=== PATIENT | female | born 1965 | race Caucasian/White ===

== ENCOUNTER 2017-03-10 09:57 | Inpatient (IN) | payer BC ==
[~2017-03-10] VITALS: Ht 165.1 cm; Wt 95.0 kg
[2017-03-10] VITALS (10 sets, daily range): BP systolic 87–123; BP diastolic 60–77; PULSE 88–114; TEMP 37.3–39; O2SAT 92–98; Ht 165.1 cm; Wt 95.0 kg
[~2017-03-10 09:57] MED LIST: ALBUAER19 INH; AMT50 PO; ASTN; ATOR-24 PO; CARB200T3 PO; DOXY50CA PO; FLUO20CA35 PO; LEVOIUD INT UTER; METO25TA3 PO; PRLSR20 PO
--- NOTE | 2017-03-10 10:28 | EMERGENCY ROOM VISIT NOTE ---
History Report prepared by Ivana: Kelsie Centeno Under the Supervision of: Dr. Jose Coley M.D. First contact with patient: 10:18 Chief Complaint: DIARRHEA Stated Complaint: SWOLLEN EYE, DIARRHEA, STOMACH PAIN Nursing Triage Summary: Pt reports nausea, diarrhea, swelling to right eye, itching to b/l eyes. Hx of gastritis, states feels similar. 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 Took 50 mg Benadryl at 0900. Abd pain and nausea, diarrhea began this morning. History of Present Illness The patient is a 51 year old female who presents to the Emergency Room with complaints of bilateral periorbital itching and swelling, right worse than left , over the past few days. The patient has environmental allergies including multiple types of pollen, dust mites, and mold. This morning, the patient's eyes were very itchy and she "vigorously rubbed" her eyes. At that time, she noticed significantly worsened swelling to her right eye. She has noticed some discharge from her eyes. She is able to see out of both eyes but reports some blurred vision from her right eye. She has seen an barrel rifler in the past, but it has been years since she followed up with the barrel rifler. She denies any trauma to her face other than rubbing her eyes. She has not blown her nose today. The patient also complains of nausea, diarrhea and mild abdominal pain that began this morning. She states that her current symptoms feel like a previous bout of gastritis. She has a history of a cholecystectomy. She still has her appendix. She does not smoke or drink alcohol. Denies fever, vomiting, black or bloody stool, or other complaints. Source of History: patient Onset: a few days ago Position: eye (bilateral) Quality: other (swollen) Timing: worsening Associated Symptoms: + abdominal pain, + diarrhea, + nausea, No fevers, No vomiting Review of Systems See HPI for pertinent positives & negatives. A total of 10 systems reviewed and were otherwise negative. Past Medical & Surgical Medical Problems: (1) Asthma (2) Depression (3) Diverticulosis Colon (W/O Ment Of Hemorrhage) (4) Dyslipidemia (5) History of sleep apnea (6) Insomnia (7) Migraine (8) PSVT (paroxysmal supraventricular tachycardia) (9) SVT (supraventricular tachycardia) Surgical Problems: (1) H/O colonoscopy (2) H/O esophagogastroduodenoscopy (3) S/p anal skin tag removal (4) S/P laparoscopic cholecystectomy Old medical records were reviewed. Nurse's notes were reviewed and I agree with. Family History Diabetes mellitus FHx: cancer Heart disease Social History Smoking Status: Never Smoker Marital Status: Housing Status: lives with family Occupation Status: employed Current/Historical Medications Scheduled Atorvastatin (Lipitor), 40 MG PO DAILY Gabapentin (Gabapentin), 100 MG PO BID Levonorgestrel (Iud) (Mirena), 1 INT UTER CONTINOUS Metoprolol Succinate (Toprol Xl), 25 MG PO DAILY Naltrexone Hcl (Naltrexone Hcl), 100 MG PO BID Venlafaxine Hcl (Effexor), 75 MG PO DAILY Scheduled PRN Albuterol Hfa (Ventolin Hfa), 2 PUFFS INH Q4H PRN for SOB/Wheezing Allergies Coded Allergies: Tetracycline (Verified Allergy, Mild, MINOCYCLINE-RASH, 03/10/17) Sulfa Drugs (Verified Allergy, Unknown, DOESN'T REMEMBER REACTION, 03/10/17 ) Physical Exam Vital Signs Date Time Temp Pulse Resp B/P Pulse Ox O2 Delivery O2 Flow Rate FiO2 03/10/17 13:54 99 03/10/17 13:33 98 20 116/51 97 Room Air 03/10/17 12:09 75 18 121/97 99 Room Air 03/10/17 10:07 36.8 82 18 130/91 98 Room Air Physical Exam General: Mildly ill-appearing but non-toxic middle aged female. Well developed well nourished in no acute distress, breathing comfortably on room air. Normal speech HEENT: Normal cephalic atraumatic. Pupils are equal round and reactive to light. Right eye has moderate chemosis. Extraocular movements are intact. Mild swelling underneath the eye, but no redness, warmth or crepitus. Oropharynx is pink with moist mucous membranes. No swelling of the mouth lips or tongue. Neck: Supple with a midline trachea. No meningeal signs or stiffness, no JVD or bruits. No Stridor. Chest: Clear to auscultation bilaterally. No wheezes or rhonchi. No increased work of breathing. Heart: regular rate and rhythm. Abdomen: Soft nontender, nondistended without rebound guarding or rigidity. Extremities: No cyanosis clubbing or edema. No calf tenderness or assymetry Spine/Back. Non tender to palpation. No CVA tenderness Skin: Good turgor without rashes. Neurologic exam: Cranial nerves two through 12 are intact. Motor and sensation are intact and symmetrical throughout. Medical Decision & Procedures ER Provider Diagnostic Interpretation: Radiology results as stated below per my review and radiologist interpretation: ABDOMEN AND PELVIS CT WITH IV CONTRAST CT DOSE: 876.68 mGycm HISTORY: Epigastric pain. TECHNIQUE: Multiaxial CT images of the abdomen and pelvis were performed following the use of intravenous contrast. COMPARISON STUDY: MRCP 03/02/2009. FINDINGS: Punctate calcified granulomas within the right lower lobe. No pneumoperitoneum. No pneumatosis. No fractures within the visualized osseous structures. Small hiatus hernia. A single prominent distal left thoracic periaortic lymph node on image 39 of 436. This measures 9 mm in short axis diameter. Prominent mesenteric lymph nodes which also measure subcentimeter in short axis diameter. Cholecystectomy. Hepatic steatosis. A 5 mm hypodense lesion within the left hepatic lobe. This is too small to characterize. The spleen, adrenal glands, and kidneys are unremarkable. No hydronephrosis. Normal caliber abdominal aorta. No pelvic free fluid. The bladder is unremarkable. An intrauterine device appears to be in good position. Mild peripancreatic inflammatory change. This is consistent with acute pancreatitis. The pancreas enhances normally. Fluid-filled colon. No evidence for bowel obstruction. Normal appendix. Question mild inflammatory change surrounding the terminal ileum. This is best seen on image 307. There is also suggestion of mild inflammatory change at the proximal ascending colon. IMPRESSION: 1. Mild peripancreatic inflammatory change. This is consistent with acute pancreatitis. Recommend correlation with pancreatic enzymes. 2. Question of mild inflammatory change surrounding the terminal ileum and ascending colon. This may represent a low-grade enterocolitis. There is an associated fluid-filled colon. 3. Cholecystectomy. 4. Hepatic steatosis. 5. A few prominent left thoracic periaortic and mesenteric lymph nodes. 6. The intrauterine device appears to be in good position. Electronically signed by: Abner Frost M.D. 03/10/2017 1:29 PM Dictated Date/Time: 03/10/2017 1:20 PM Laboratory Results 03/10/17 10:45 Red Blood Count 4.90, Mean Corpuscular Volume 93.1, Mean Corpuscular Hemoglobin 32.4, Mean Corpuscular Hemoglobin Concent 34.9, Mean Platelet Volume 9.3, Neutrophils (%) (Auto) 69.8, Lymphocytes (%) (Auto) 23.3, Monocytes (%) (Auto) 1.7, Eosinophils (%) (Auto) 4.4, Basophils (%) (Auto) 0.1, Neutrophils # (Auto) 6.26, Lymphocytes # (Auto) 2.09, Monocytes # (Auto) 0.15, Eosinophils # (Auto) 0.39, Basophils # (Auto) 0.01 03/10/17 10:45 03/10/17 12:10 Test 03/10/17 10:45 03/10/17 11:04 03/10/17 12:10 White Blood Count 8.96 K/uL (4.8-10.8) Red Blood Count 4.90 M/uL (4.2-5.4) Hemoglobin 15.9 g/dL (12.0-16.0) Hematocrit 45.6 % (37-47) Mean Corpuscular Volume 93.1 fL (80-100) Mean Corpuscular Hemoglobin 32.4 pg (25-34) Mean Corpuscular Hemoglobin Concent 34.9 g/dl (32-36) Platelet Count 296 K/uL (130-400) Mean Platelet Volume 9.3 fL (7.4-10.4) Neutrophils (%) (Auto) 69.8 % Lymphocytes (%) (Auto) 23.3 % Monocytes (%) (Auto) 1.7 % Eosinophils (%) (Auto) 4.4 % Basophils (%) (Auto) 0.1 % Neutrophils # (Auto) 6.26 K/uL (1.4-6.5) Lymphocytes # (Auto) 2.09 K/uL (1.2-3.4) Monocytes # (Auto) 0.15 K/uL (0.11-0.59) Eosinophils # (Auto) 0.39 K/uL (0-0.5) Basophils # (Auto) 0.01 K/uL (0-0.2) RDW Standard Deviation 43.5 fL (36.4-46.3) RDW Coefficient of Variation 12.7 % (11.5-14.5) Immature Granulocyte % (Auto) 0.7 % Immature Granulocyte # (Auto) 0.06 K/uL (0.00-0.02) Anion Gap 6.0 mmol/L (3-11) Est Creatinine Clear Calc Drug Dose 83.6 ml/min Estimated GFR () 87.0 Estimated GFR (Non- 75.1 BUN/Creatinine Ratio 15.9 (10-20) Calcium Level 8.7 mg/dl (8.5-10.1) Total Bilirubin 0.6 mg/dl (0.2-1) Alanine Aminotransferase (ALT/SGPT) 66 U/L (12-78) Alkaline Phosphatase 143 U/L (45-117) Total Protein 7.3 gm/dl (6.4-8.2) Albumin 3.7 gm/dl (3.4-5.0) Lipase 69433 U/L (73-393) Urine Color DK YELLOW Urine Appearance CLOUDY (CLEAR) Urine pH 5.5 (4.5-7.5) Urine Specific [place] 1.029 (1.000-1.030) Urine Protein NEG (NEG) Urine Glucose (UA) NEG (NEG) Urine Ketones TRACE (NEG) Urine Occult Blood NEG (NEG) Urine Nitrite NEG (NEG) Urine Bilirubin NEG (NEG) Urine Urobilinogen NEG (NEG) Urine Leukocyte Esterase TRACE (NEG) Urine WBC (Auto) 1-5 /hpf (0-5) Urine RBC (Auto) 5-10 /hpf (0-4) Urine Hyaline Casts (Auto) 1-5 /lpf (0-5) Urine Epithelial Cells (Auto) 20-30 /lpf (0-5) Urine Bacteria (Auto) NEG (NEG) Urine Crystals CALCIUM OXALATE (NONE Urine Test NEG (NEG) Prothrombin Time 10.7 SECONDS (9.0-12.0) Prothromb Time International Ratio 1.0 (0.9-1.1) Activated Partial Thromboplast Time 24.3 SECONDS (21.0-31.0) Partial Thromboplastin Ratio 0.9 Direct Bilirubin 0.4 mg/dl (0-0.2) Aspartate Amino Transf (AST/SGOT) 130 U/L (15-37) Laboratory studies as stated above per my review. Medications Administered Medications (Trade) Dose Ordered Sig/Raheem Route Start Time Stop Time Status Last Admin Dose Admin Sodium Chloride 1,000 ml @ 999 mls/hr Q1H1M STAT IV 03/10/17 10:29 03/10/17 11:29 DC 03/10/17 10:53 999 MLS/HR Sodium Chloride (Nss 1000ml) 1,000 ml @ 150 mls/hr Q6H40M ONCE IV 03/10/17 10:29 03/10/17 16:53 DC 03/10/17 10:29 150 MLS/HR Ondansetron HCl (Zofran Inj) 4 mg NOW STAT IV 03/10/17 10:29 03/10/17 10:30 DC 03/10/17 10:53 4 MG Proparacaine HCl (Alcaine 0.5% Oph Soln) 225 drops STK-MED ONCE .ROUTE 03/10/17 10:49 03/10/17 10:50 DC 03/10/17 10:53 225 DROPS Al Hydroxide/Mg Hydroxide (Maalox Susp) 30 ml NOW STAT PO 03/10/17 11:17 03/10/17 11:18 DC 03/10/17 11:17 30 ML Lidocaine HCl (Viscous Lidocaine 2% Soln) 10 ml NOW STAT MT 03/10/17 11:17 03/10/17 11:18 DC 03/10/17 11:17 10 ML Ondansetron HCl 4 mg 4 mg NOW STAT IV 03/10/17 12:09 03/10/17 12:10 DC 03/10/17 12:13 4 MG Multivitamins/ Thiamine HCl/ Folic Acid/Sodium Chloride (Mvi Infusion Inj/Vitamin B-1 Inj/Folvite Inj/ Nss 1000ml) 1,011.2 ml @ 200 mls/ hr Q5H4M ONCE IV 03/10/17 12:30 03/10/17 17:33 DC 03/10/17 13:28 200 MLS/HR Lorazepam (Ativan Inj) 1 mg NOW STAT IV 03/10/17 12:29 03/10/17 12:33 DC 03/10/17 12:46 1 MG Miscellaneous Information (Nursing Decision Medication Order) 1 ea UD N/A 03/10/17 13:45 03/10/17 14:48 DC 03/10/17 13:47 1 EA Lorazepam (Ativan Inj) 1 mg NOW STAT IV 03/10/17 14:15 03/10/17 14:16 DC 03/10/17 14:31 1 MG Procedure Slit Lamp Examination Indication: Right eye swelling The right eye was prepped with topical proparacaine. Slit lamp examination was performed in the standard fashion. Cornea appeared normal without abrasion. Anterior chamber normal. Scleral injection absent but significant chemosis present, no dendritic lesions. Clear tears present. Fluorescein examination performed and revealed no corneal abrasions. No foreign bodies noted. Negative Arcelia sign. The patient tolerated the procedure well without complication. ED Course 1020: The patient was evaluated in room B10, and a complete history and physical examination were performed. 1029: Ordered Zofran Inj 4 mg IV, NSS 1000 ml @ 150 mls/hr IV, NSS 1000 ml @ 999 mls/hr IV. 1105: I performed a slit lamp exam. See procedure note above. The patient requested something for the acidic feeling in her stomach. 1117: Ordered Lidocaine HCl 10 ml MT, Maalox Susp 30 ml PO. 1121: I discussed the case with Dr. Castellanos - Ophthalmology. He said that if her symptoms are allergic, she will get better. He said to try Naphcon A over the counter antihistamine drops or Pred Forte if she wants to treat it more aggressively. 1205: I reassessed the patient and updated her on results. She was vomiting. She admitted that she has a history of alcoholism and relapsed a few weeks ago. 1209: Ordered Zofran Inj 4 mg IV. 1229: Ordered Ativan Inj 1 mg IV, Multivitamins 10 ml/Thiamine HCl 100 mg/Folic Acid 1 mg/NSS 1011.2 ml @ 200 mls/hr IV. 1330: Upon reevaluation, the patient is feeling a little shaky. She will get another dose of Ativan. Her vitals are stable. I discussed the results and treatment plan with the patient. She verbalized agreement of the treatment plan. The patient will be evaluated for further management. 1344: I discussed the case with Germania España PA-C - [facility]. The patient will be evaluated for further management. 1415: Ordered Ativan Inj 1 mg IV. Medical Decision Differentials include chemosis, allergic reaction, infection, ocular trauma, gastritis, abdominal process, electrolyte or metabolic abnormality. This patient comes in as described above. She was placed in room B 10. She is here for treatment and evaluation of hematosis in her right eye. She has allergies and was rubbing it today. There is some swelling of the sclera. She has no proptosis there is no cellulitis. She also has epigastric abdominal pain and diarrhea. IV access established hydrated normal saline . she's given Zofran blood tests was obtained. Her visual acuity was 20/200 bilaterally and she is not wearing her contacts. A slit-lamp exam was obtained and shows no anterior chamber abnormalities. I did discuss the case with Dr. Castellanos, the group sales coordinator who she is seen he agrees that his allergic and she can use topical antihistamines. She started complaining of more epigastric pain. She was hydrated and given IV Zofran. She remained stable. Her lipase came back significantly elevated at about 24,000 and I talked her about this and she tells me that she does have a history of alcoholism and had been sober for several years until about 2 weeks ago when she started drinking. She tells me she does not typically get DTs or withdrawal type symptoms and she stops drinking. She was reluctant to reveal this earlier. In light of this change, I did give her an IV banana bag with vitamins. I also gave her 1 milligram IV Ativan as she was starting to get shaky. I did a CAT scan as well is consistent with pancreatitis but there is no stenosis pseudocyst. She seemed to still be shaky so was given an additional milligram of IV Ativan she is sleepy with this but wakes up and says she is feeling better. I do think she needs be admitted for treatment of her pancreatitis and alcohol withdrawal. She will be admitted. I have consulted the [facility] hospitalist group who saw her in the ER and will admit her for these measures. Consults Time Called: [phone] Consulting Physician: Dr. Castellanos - Ophthalmology Returned Call: [phone] I discussed the case with him. He said that if her symptoms are allergic, she will get better. He said to try Naphcon A over the counter antihistamine drops or Pred Forte if she wants to treat it more aggressively. Additional Consults: Time Called: [phone] Consulted Physician: Germania España PA-C - [facility] Returned Call: [phone] Additional Comments: I discussed the case with her. The patient will be evaluated for further management. Impression Primary Impression: Pancreatitis Additional Impressions: Chemosis Alcohol withdrawal Scribe Attestation The scribe's documentation has been prepared under my direction and personally reviewed by me in its entirety. I confirm that the note above accurately reflects all work, treatment, procedures, and medical decision making performed by me. Departure Information Dispostion Being Evaluated By Hospitalist Referrals No Doctor, Assigned (PCP) Patient Instructions My [facility] Problem Qualifiers
[2017-03-10] MEDS ORDERED: ONDANSETRON INJ 2 MG/ML 2 ML VIAL IV STA ×2 (10:29→12:09)
[2017-03-10] MEDS ORDERED: SODIUM CHLORIDE 0.9% 1000ML 1,000 ML IV ONE (10:29)
[2017-03-10] MEDS ORDERED: SODIUM CHLORIDE 0.9% 1000ML 1,000 ML IV STA (10:29)
[2017-03-10] MEDS ORDERED: VNTHFA/IN INH (10:32)
[2017-03-10] MEDS ORDERED: PROPARACAINE HCL 0.5% OP SOLN 15 ML BTL ONE (10:49)
[2017-03-10 11:06] LABS: BASO % 0.1 %; BASO ABS # 0.01 K/uL (0-0.2); COMPLETE YES; EOS % 4.4 %; HEMATOCRIT 45.6 % (37-47); IG% 0.7 %; LYMPH % 23.3 %; LYMPH ABS # 2.09 K/uL (1.2-3.4); MEAN CELL VOLUME 93.1 fL (80-100); MEAN CORPUSCULAR HEMOGLOBIN 32.4 pg (25-34); MEAN CORPUSCULAR HGB CONC 34.9 g/dl (32-36); MEAN PLATELET VOLUME 9.3 fL (7.4-10.4); MONO % 1.7 %; NEUT % 69.8 %; PLATELET COUNT 296 K/uL (130-400); WHITE BLOOD COUNT 8.96 K/uL (4.8-10.8)
[2017-03-10] MEDS ORDERED: ALUMINUM/MAGNESIUM SUSP 30 ML UDC PO STA (11:17)
[2017-03-10] MEDS ORDERED: LIDOCAINE HCL 2% VISC SOLN 20 ML UDC MT STA (11:17)
[2017-03-10 11:20] LABS: URINE APPEARANCE CLOUDY (CLEAR); URINE COLOR DK YELLOW; URINE EPITHELIAL CELL AUTO 20-30 /lpf (0-5); URINE NITRITE NEG (NEG); URINE PH 5.5 (4.5-7.5); URINE SPECIFIC GRAVITY 1.029 (1.000-1.030); UROBILINOGEN NEG (NEG)
[2017-03-10 11:25] LABS: MANUAL MICROSCOPIC REQUIRED? NO; REVIEW REQ? YES
[2017-03-10 11:26] LABS: URINE BILIRUBIN NEG (NEG)
[2017-03-10] MEDS ORDERED: LIDOCAINE HCL 2% VISC SOLN 20 ML UDC ONE (11:30)
[2017-03-10] MEDS ORDERED: ALUMINUM/MAGNESIUM SUSP 30 ML UDC ONE (11:30)
[2017-03-10 11:54] LABS: BLOOD UREA NITROGEN 14 mg/dl (7-18); BUN/CREATININE RATIO 15.9 (10-20); CALCIUM 8.7 mg/dl (8.5-10.1); CARBON DIOXIDE 27 mmol/L (21-32); CHLORIDE 105 mmol/L (98-107); GLUCOSE 127 mg/dl (70-99); SODIUM 138 mmol/L (136-145)
[2017-03-10 12:03] LABS: ALKALINE PHOSPHATASE 143 U/L (45-117); ALT/SGPT 66 U/L (12-78)
[2017-03-10] MEDS ORDERED: LORAZEPAM 2 MG/ML 1 ML VIAL IV STA ×2 (12:29→14:15)
[2017-03-10] MEDS ORDERED: MULTI-VITAMIN INFUSION INJ 10 ML, THIAMINE HCL INJ 100 MG, FoLIC ACID INJ 1 MG in SODIU... IV ONE (12:30)
[2017-03-10] MEDS ORDERED: OPTIRAY 320 IV PRN (12:45)
[2017-03-10 12:51] LABS: POTASSIUM 4.1 mmol/L (3.5-5.1)
--- NOTE | 2017-03-10 13:31 | DIAGNOSTIC IMAGING REPORT ---
ABDOMEN AND PELVIS CT WITH IV CONTRAST CT DOSE: 876.68 mGycm HISTORY: Epigastric pain. TECHNIQUE: Multiaxial CT images of the abdomen and pelvis were performed following the use of intravenous contrast. COMPARISON STUDY: MRCP 03/02/2009. FINDINGS: Punctate calcified granulomas within the right lower lobe. No pneumoperitoneum. No pneumatosis. No fractures within the visualized osseous structures. Small hiatus hernia. A single prominent distal left thoracic periaortic lymph node on image 39 of 436. This measures 9 mm in short axis diameter. Prominent mesenteric lymph nodes which also measure subcentimeter in short axis diameter. Cholecystectomy. Hepatic steatosis. A 5 mm hypodense lesion within the left hepatic lobe. This is too small to characterize. The spleen, adrenal glands, and kidneys are unremarkable. No hydronephrosis. Normal caliber abdominal aorta. No pelvic free fluid. The bladder is unremarkable. An intrauterine device appears to be in good position. Mild peripancreatic inflammatory change. This is consistent with acute pancreatitis. The pancreas enhances normally. Fluid-filled colon. No evidence for bowel obstruction. Normal appendix. Question mild inflammatory change surrounding the terminal ileum. This is best seen on image 307. There is also suggestion of mild inflammatory change at the proximal ascending colon. IMPRESSION: 1. Mild peripancreatic inflammatory change. This is consistent with acute pancreatitis. Recommend correlation with pancreatic enzymes. 2. Question of mild inflammatory change surrounding the terminal ileum and ascending colon. This may represent a low-grade enterocolitis. There is an associated fluid-filled colon. 3. Cholecystectomy. 4. Hepatic steatosis. 5. A few prominent left thoracic periaortic and mesenteric lymph nodes. 6. The intrauterine device appears to be in good position. Electronically signed by: Abner Frost M.D. 03/10/2017 1:29 PM Dictated Date/Time: 03/10/2017 1:20 PM
[2017-03-10] MEDS ORDERED: NURSING DECISION MEDICATION ORDER SCH (13:45)
[2017-03-10] MEDS ORDERED: LORAZEPAM 2 MG/ML 1 ML VIAL IV SCH (14:42)
[2017-03-10] MEDS ORDERED: ACETAMINOPHEN 325 MG TAB PO PRN (14:45)
[2017-03-10] MEDS ORDERED: ONDANSETRON INJ 2 MG/ML 2 ML VIAL IV PRN (14:45)
[2017-03-10] MEDS ORDERED: NRN100 PO (14:46)
[2017-03-10] MEDS ORDERED: EFF75 PO (14:46)
[2017-03-10] MEDS ORDERED: NALT50TA5 PO (14:46)
[2017-03-10 15:00] LABS: PARTIAL THROMBOPLASTIN RATIO 0.9; PROTHROMBIN TIME (PATIENT) 10.7 SECONDS (9.0-12.0)
[2017-03-10] MEDS ORDERED: ALBUTEROL HFA 8 GM INHALER INH PRN (15:00)
[2017-03-10] MEDS ORDERED: NAPHAZOLIN/PHENIRAMIN OPH SOLN 75 DROPS/5 ML BTL OPR PRN ×2 (15:00→18:00)
[2017-03-10] MEDS ORDERED: GABAPENTIN 600 MG TAB PO SCH (15:00)
[2017-03-10] MEDS ORDERED: THIAMINE HCL 100 MG TAB PO STA (15:03)
[2017-03-10] MEDS ORDERED: LORAZEPAM 1 MG TAB PO PRN (15:15)
--- NOTE | 2017-03-10 15:36 | Progress Note ---
Medicine Progress Note Date & Time of Visit: Mar 10, 2017 at 15:08. Subjective ATTENDING ADDENDUM: Objective Last 8 Hrs Date Time Temp Pulse Resp B/P Pulse Ox O2 Delivery O2 Flow Rate FiO2 03/10/17 13:54 99 03/10/17 13:33 98 20 116/51 97 Room Air 03/10/17 12:09 75 18 121/97 99 Room Air 03/10/17 10:07 36.8 82 18 130/91 98 Room Air Physical Exam: GEN: WNWD, in mild distress, alert and appropriate HEENT: NC/AT, PERRL, R scleral injection without iris involvement CARDIO: reg rate, S1/2 heard without m/g/r LUNGS: CTA bilaterally, no crackles, rales or wheezes, good diaphragmatic excursion ABD: very hypoactive bowel sounds, TTP in epigastric area, slightly distended but still soft, some voluntary guarding present, no rebound, no CVA tenderness EXTREMITY: no LE swelling or edema, extremities are warm and well-perfused NEURO: CN 2-12 grossly intact, limited exam as patient guarding against pain, she is alert but very tremulous, no pressured speech, no hallucinations or confabulations were noted. MUSC: moves all extremities equally, , can move herself up in the bed, no focal deficits SKIN: warm and diaphoretic, no obvious skin lesions were noted on back, trunk or extremities, face appears flushed Laboratory Results: 03/10/17 10:45 Red Blood Count 4.90, Mean Corpuscular Volume 93.1, Mean Corpuscular Hemoglobin 32.4, Mean Corpuscular Hemoglobin Concent 34.9, Mean Platelet Volume 9.3, Neutrophils (%) (Auto) 69.8, Lymphocytes (%) (Auto) 23.3, Monocytes (%) (Auto) 1.7, Eosinophils (%) (Auto) 4.4, Basophils (%) (Auto) 0.1, Neutrophils # (Auto) 6.26, Lymphocytes # (Auto) 2.09, Monocytes # (Auto) 0.15, Eosinophils # (Auto) 0.39, Basophils # (Auto) 0.01 03/10/17 10:45 03/10/17 12:10 Test 03/10/17 10:45 03/10/17 11:04 03/10/17 12:10 03/10/17 14:50 White Blood Count 8.96 K/uL (4.8-10.8) Red Blood Count 4.90 M/uL (4.2-5.4) Hemoglobin 15.9 g/dL (12.0-16.0) Hematocrit 45.6 % (37-47) Mean Corpuscular Volume 93.1 fL (80-100) Mean Corpuscular Hemoglobin 32.4 pg (25-34) Mean Corpuscular Hemoglobin Concent 34.9 g/dl (32-36) Platelet Count 296 K/uL (130-400) Mean Platelet Volume 9.3 fL (7.4-10.4) Neutrophils (%) (Auto) 69.8 % Lymphocytes (%) (Auto) 23.3 % Monocytes (%) (Auto) 1.7 % Eosinophils (%) (Auto) 4.4 % Basophils (%) (Auto) 0.1 % Neutrophils # (Auto) 6.26 K/uL (1.4-6.5) Lymphocytes # (Auto) 2.09 K/uL (1.2-3.4) Monocytes # (Auto) 0.15 K/uL (0.11-0.59) Eosinophils # (Auto) 0.39 K/uL (0-0.5) Basophils # (Auto) 0.01 K/uL (0-0.2) RDW Standard Deviation 43.5 fL (36.4-46.3) RDW Coefficient of Variation 12.7 % (11.5-14.5) Immature Granulocyte % (Auto) 0.7 % Immature Granulocyte # (Auto) 0.06 K/uL (0.00-0.02) Anion Gap 6.0 mmol/L (3-11) Est Creatinine Clear Calc Drug Dose 83.6 ml/min Estimated GFR () 87.0 Estimated GFR (Non- 75.1 BUN/Creatinine Ratio 15.9 (10-20) Calcium Level 8.7 mg/dl (8.5-10.1) Total Bilirubin 0.6 mg/dl (0.2-1) Alanine Aminotransferase (ALT/SGPT) 66 U/L (12-78) Alkaline Phosphatase 143 U/L (45-117) Total Protein 7.3 gm/dl (6.4-8.2) Albumin 3.7 gm/dl (3.4-5.0) Lipase 03156 U/L (73-393) Urine Color DK YELLOW Urine Appearance CLOUDY (CLEAR) Urine pH 5.5 (4.5-7.5) Urine Specific [place] 1.029 (1.000-1.030) Urine Protein NEG (NEG) Urine Glucose (UA) NEG (NEG) Urine Ketones TRACE (NEG) Urine Occult Blood NEG (NEG) Urine Nitrite NEG (NEG) Urine Bilirubin NEG (NEG) Urine Urobilinogen NEG (NEG) Urine Leukocyte Esterase TRACE (NEG) Urine WBC (Auto) 1-5 /hpf (0-5) Urine RBC (Auto) 5-10 /hpf (0-4) Urine Hyaline Casts (Auto) 1-5 /lpf (0-5) Urine Epithelial Cells (Auto) 20-30 /lpf (0-5) Urine Bacteria (Auto) NEG (NEG) Urine Crystals CALCIUM OXALATE (NONE Urine Test NEG (NEG) Prothrombin Time 10.7 SECONDS (9.0-12.0) Prothromb Time International Ratio 1.0 (0.9-1.1) Activated Partial Thromboplast Time 24.3 SECONDS (21.0-31.0) Partial Thromboplastin Ratio 0.9 Direct Bilirubin 0.4 mg/dl (0-0.2) Aspartate Amino Transf (AST/SGOT) 130 U/L (15-37) Date/Time Source Procedure Growth Status 03/10/17 11:04 Urine , Clean Catch Urine Culture Pending Received Last 24 Hours Test 03/10/17 10:45 03/10/17 11:04 03/10/17 12:10 03/10/17 14:50 White Blood Count 8.96 K/uL Red Blood Count 4.90 M/uL Hemoglobin 15.9 g/dL Hematocrit 45.6 % Mean Corpuscular Volume 93.1 fL Mean Corpuscular Hemoglobin 32.4 pg Mean Corpuscular Hemoglobin Concent 34.9 g/dl Platelet Count 296 K/uL Mean Platelet Volume 9.3 fL Neutrophils (%) (Auto) 69.8 % Lymphocytes (%) (Auto) 23.3 % Monocytes (%) (Auto) 1.7 % Eosinophils (%) (Auto) 4.4 % Basophils (%) (Auto) 0.1 % Neutrophils # (Auto) 6.26 K/uL Lymphocytes # (Auto) 2.09 K/uL Monocytes # (Auto) 0.15 K/uL Eosinophils # (Auto) 0.39 K/uL Basophils # (Auto) 0.01 K/uL RDW Standard Deviation 43.5 fL RDW Coefficient of Variation 12.7 % Immature Granulocyte % (Auto) 0.7 % Immature Granulocyte # (Auto) 0.06 K/uL Sodium Level 138 mmol/L Potassium Level mmol/L 4.1 mmol/L Chloride Level 105 mmol/L Carbon Dioxide Level 27 mmol/L Anion Gap 6.0 mmol/L Blood Urea Nitrogen 14 mg/dl Creatinine 0.90 mg/dl Est Creatinine Clear Calc Drug Dose 83.6 ml/min Estimated GFR () 87.0 Estimated GFR (Non- 75.1 BUN/Creatinine Ratio 15.9 Random Glucose 127 mg/dl Calcium Level 8.7 mg/dl Total Bilirubin 0.6 mg/dl Direct Bilirubin mg/dl 0.4 mg/dl Aspartate Amino Transf (AST/SGOT) U/L 130 U/L Alanine Aminotransferase (ALT/SGPT) 66 U/L Alkaline Phosphatase 143 U/L Total Protein 7.3 gm/dl Albumin 3.7 gm/dl Lipase 34477 U/L Urine Color DK YELLOW Urine Appearance CLOUDY Urine pH 5.5 Urine Specific [place] 1.029 Urine Protein NEG Urine Glucose (UA) NEG Urine Ketones TRACE Urine Occult Blood NEG Urine Nitrite NEG Urine Bilirubin NEG Urine Urobilinogen NEG Urine Leukocyte Esterase TRACE Urine WBC (Auto) 1-5 /hpf Urine RBC (Auto) 5-10 /hpf Urine Hyaline Casts (Auto) 1-5 /lpf Urine Epithelial Cells (Auto) 20-30 /lpf Urine Bacteria (Auto) NEG Urine Crystals CALCIUM OXALATE Urine Test NEG Prothrombin Time 10.7 SECONDS Prothromb Time International Ratio 1.0 Activated Partial Thromboplast Time 24.3 SECONDS Partial Thromboplastin Ratio 0.9 Date/Time Source Procedure Growth Status 03/10/17 11:04 Urine , Clean Catch Urine Culture Pending Received Diagnostic Imaging: ABD/PEL CT WITH IV CONTRAST: 1. Mild peripancreatic inflammatory change. This is consistent with acute pancreatitis. Recommend correlation with pancreatic enzymes. 2. Question of mild inflammatory change surrounding the terminal ileum and ascending colon. This may represent a low-grade enterocolitis. There is an associated fluid-filled colon. 3. Cholecystectomy. 4. Hepatic steatosis. 5. A few prominent left thoracic periaortic and mesenteric lymph nodes. 6. The intrauterine device appears to be in good position. Assessment & Plan 51 yo F with alcohol-induced pancreatitis 1. Abdominal pain likely 2/2 acute pancreatitis 2/2 alcohol use. Other etiologies include but are not limited to hepatitis (no fever or RUQ pain) and enterocolitis (diarrhea began two days ago, travel to [place] 3 weeks ago). Pt began drinking two weeks ago, shortly after being taken off Lexapro and Amitryptiline (per sleep study results). She readily admits to this and is very aware of her situation right now and admits to drinking 1-2 bottles of wine daily with some suicidal ideations as recently as this morning, which have gone away now that she is feeling better and her pain has gone down some. She has a h/o alcoholism and was previously sober for around 2 years. She is able to tolerate sips of liquid so agree with allowing clear liquids and only necessary PO meds. Ativan 5mg IV was given over the course of a couple of hours in the ER. Cont this liberally--protocol also ordered for this and gabapentin PO. Thiamine daily. Diarrhea is likely 2/2 pancreatic insufficiency but agree with checking stool studies. Decreased bowel sounds and slight distension likely 2/2 adynamic ileus. Will monitor with serial abdominal exams. GI consult 2. Alcohol withdrawal-significant but controlling with PRN Ativan pushes for now. Last drink was 12-24 hours ago, so liberal use encouraged to nursing staff. Gabapentin also per protocol 3. Elevated transaminases-2/2 acute pancreatitis. Trend in am. 4. Depression-unstable off meds. Not currently suicidal but aware of options if these thoughts return. Nursing staff made aware for 15 minute checks on her up front. 5. Allergic conjunctivitis-appreciate Ophthalmology evaluation in the ER; likely allergic conjunctivitis with symptoms ongoing for two weeks. Naphcon A drops recommended up front. I have seen and evaluated the patient with Leeann España PA-C and agree with the H& P as stated. Deedee De DO [facility] Hospitalist Current Inpatient Medications: Current Inpatient Medications Medications (Trade) Dose Ordered Sig/Raheem Route Start Time Stop Time Status Last Admin Dose Admin Sodium Chloride 1,000 ml @ 150 mls/hr Q6H40M ONCE IV 03/10/17 10:29 03/10/17 17:08 03/10/17 10:29 150 MLS/HR Multivitamins/ Thiamine HCl/ Folic Acid/Sodium Chloride (Mvi Infusion Inj/Vitamin B-1 Inj/Folvite Inj/ Nss 1000ml) 1,011.2 ml @ 200 mls/ hr Q5H4M ONCE IV 03/10/17 12:30 03/10/17 17:33 03/10/17 13:28 200 MLS/HR Ioversol (Optiray 320) 100 ml UD PRN IV 03/10/17 12:45 03/14/17 12:44 Enoxaparin Sodium (Lovenox Inj) 40 mg Q24H SC 03/10/17 14:45 04/09/17 14:44 UNV Acetaminophen (Tylenol Tab) 650 mg Q4H PRN PO 03/10/17 14:45 04/09/17 14:44 Ondansetron HCl 4 mg 4 mg Q6H PRN IV 03/10/17 14:45 04/09/17 14:44 Sodium Chloride (Nss 1000ml) 1,000 ml @ 200 mls/hr Q5H IV 03/10/17 14:45 04/09/17 14:44 Lorazepam (Ativan Inj) 2 mg TODAY@1442 IV 03/10/17 14:42 03/10/17 16:00 Thiamine HCl (Vitamin B-1 Tab) 100 mg Q24H STAT PO 03/10/17 14:50 03/10/17 14:51 UNV Gabapentin (Neurontin Tab) 1,200 mg SEE PROTOCOL TEXT PO 03/10/17 15:00 04/09/17 14:59 UNV Naphazoline HCl/ Pheniramine Maleate (Visine-A Oph Soln) 1 drops Q6 PRN OPR 03/10/17 18:00 04/09/17 17:59 Albuterol (Ventolin Hfa Inhaler) 2 puffs Q4H PRN INH 03/10/17 15:00 04/09/17 14:59 Metoprolol Succinate (Toprol Xl Tab) 25 mg DAILY PO 03/11/17 09:00 04/10/17 08:59 UNV Venlafaxine HCl (effeXOR EXTENDED REL CAP) 75 mg DAILY PO 03/11/17 09:00 04/10/17 08:59
[2017-03-10] MEDS ORDERED: THIAMINE HCL 100 MG TAB PO SCH (16:00)
--- NOTE | 2017-03-10 16:06 | History and Physical ---
History & Physical Date & Time of Service: Mar 10, 2017 at 15:02 Chief Complaint: Swollen Eye, Diarrhea, Stomach Pain Primary Care Physician: Brent Alan M.D.(ITALO) History of Present Illness Source: patient, clinic records, hospital records This is a 51 year old female with hx of acute pancreatitis, alcohol abuse, depression, hx PSVT, and other problems listed below who presents to the ED for right eye symptoms and abdominal pain with diarrhea. Pt reports diarrhea x 2 days which worsened today with loose to liquid BM greater than once an hour. She awoke at 9 am with abdominal pain which she describes as diffuse originally rated 4-5/10 now rated 1/10. She had nausea earlier today which resolved with Zofran. Has occasional reflux. Pt states she went through rehab approx 2 years ago for alcohol abuse then relapsed 2 weeks ago. Has been drinking 1 bottle of wine per day. Last drink around midnight last night. She denies hx of DT's or alcohol withdrawal seizure. She is feeling anxious, shaky, and chills today. She reports being taken off Lexapro and Elavil approx 12 weeks ago and since that time has worsened depression, anxiety, insomnia. She states meds were stopped due to poor REM sleep on sleep study (f/u for prior sleep apnea- resolved per patient) . She reports recent suicidal ideation including this morning but denies suicidal ideation at this time. She does see psychiatry "Lea" [employer], unsure of the full name. Pt reports R >L eye itching, swelling. States eyes are chronically itchy due to pollen allergy but it worsened today. Has mild blurry vision R eye. She had a difficult time taking her contacts out this morning. Has been rubbing the eye. Denies known foreign body in the eye. Pt denies fever, diaphoresis, SOB, chest pain, dizziness, palpitations, vomiting , hematochezia, melena, dysuria, frequency, paresthesias. Recently travelled to [facility] from February 15-. No sick contacts or recent antibiotics. Pt had cholecystectomy in 2003. Was hospitalized for pancreatitis at [facility] in 2008. She was seen by [facility] and had unremarkable MRCP at that time. Past Medical/Surgical History Medical Problems: (1) Asthma Status: Chronic (2) Depression Status: Chronic (3) Dyslipidemia Status: Chronic (4) History of sleep apnea Permanent Comment: resolved per patient Status: Chronic (5) Insomnia Status: Chronic (6) Migraine Status: Chronic (7) PSVT (paroxysmal supraventricular tachycardia) Status: Chronic (8) SVT (supraventricular tachycardia) Status: Chronic Surgical Problems: (1) H/O colonoscopy Permanent Comment: 04/2016 perianal skin tag, normal colon Status: Chronic (2) H/O esophagogastroduodenoscopy Permanent Comment: 07/04/2009- EUS exam- No choledocholithiasis, No masses appreciated in the entire pancreas. EGD exam- Normal examined duodenum. Bilious gastric fluid. Mild gastritis ? bilious etiology. Bx neg for H. pylori. Prominent fold just distal to GEJ. Bx- Squamocolumnar mucosa with mild carditis and hyperplastic changes. Negative for intestinal metaplasia and dysplasia. Medium sized hiatus hernia. 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) Immunizations History of Influenza Vaccine: N/A History of Tetanus Vaccine?: Yes History of Pneumococcal: No History of Hepatitis B Vaccine: Yes Multi-Drug Resistant Organisms History of MDRO: No Allergies Coded Allergies: Tetracycline (Verified Allergy, Mild, MINOCYCLINE-RASH, 03/10/17) Sulfa Antibiotics (Verified Allergy, Unknown, PT DOESN'T REMEMBER REACTION , 03/11/17) Home Medications Scheduled Atorvastatin (Lipitor), 40 MG PO DAILY Gabapentin (Gabapentin), 100 MG PO BID Levonorgestrel (Iud) (Mirena), 1 INT UTER CONTINOUS Metoprolol Succinate (Toprol Xl), 25 MG PO DAILY Naltrexone Hcl (Naltrexone Hcl), 100 MG PO BID Venlafaxine Hcl (Effexor), 75 MG PO DAILY Scheduled PRN Albuterol Hfa (Ventolin Hfa), 2 PUFFS INH Q4H PRN for SOB/Wheezing Review of Systems Ten point ROS performed with pertinent positives and negatives noted in HPI. Physical Exam Vital Signs Date Time Temp Pulse Resp B/P Pulse Ox O2 Delivery O2 Flow Rate FiO2 03/10/17 13:54 99 03/10/17 13:33 98 20 116/51 97 Room Air 03/10/17 12:09 75 18 121/97 99 Room Air 03/10/17 10:07 36.8 82 18 130/91 98 Room Air General Appearance: WD/WN, + pertinent finding (alert 51 year old female, mild distress, mildly anxious, tremulous) Head: normocephalic, atraumatic Eyes: PERRL, + pertinent finding (right scleral injection and mild swelling of right upper and lower eyelid. no periorbital erythema or tenderness. ) ENT: hearing grossly normal, pharynx normal Neck: supple, trachea midline Respiratory/Chest: lungs clear, normal breath sounds, no respiratory distress, no accessory muscle use Cardiovascular: no murmur, + tachycardia (rate 90s, regular) Abdomen/GI: non tender, soft, + abnormal bowel sounds (sluggish bowel sounds) Extremities/Musculoskelatal: normal inspection, no calf tenderness, normal capillary refill, no pedal edema Neurologic/Psych: alert, oriented x 3, + pertinent finding (mildly anxious, + tremor of the upper extremities) Skin: normal color, warm/dry On my reassessment 1 hour later, patient sleeping but easily arousable, no longer tremulous. Diagnostics Laboratory Results Results Past 24 Hours Test 03/10/17 10:45 03/10/17 11:04 03/10/17 12:10 03/10/17 14:50 Range/Units White Blood Count 8.96 4.8-10.8 K/uL Red Blood Count 4.90 4.2-5.4 M/uL Hemoglobin 15.9 12.0-16.0 g/dL Hematocrit 45.6 37-47 % Mean Corpuscular Volume 93.1 80-100 fL Mean Corpuscular Hemoglobin 32.4 25-34 pg Mean Corpuscular Hemoglobin Concent 34.9 32-36 g/dl Platelet Count 296 130-400 K/uL Mean Platelet Volume 9.3 7.4-10.4 fL Neutrophils (%) (Auto) 69.8 % Lymphocytes (%) (Auto) 23.3 % Monocytes (%) (Auto) 1.7 % Eosinophils (%) (Auto) 4.4 % Basophils (%) (Auto) 0.1 % Neutrophils # (Auto) 6.26 1.4-6.5 K/uL Lymphocytes # (Auto) 2.09 1.2-3.4 K/uL Monocytes # (Auto) 0.15 0.11-0.59 K/uL Eosinophils # (Auto) 0.39 0-0.5 K/uL Basophils # (Auto) 0.01 0-0.2 K/uL RDW Standard Deviation 43.5 36.4-46.3 fL RDW Coefficient of Variation 12.7 11.5-14.5 % Immature Granulocyte % (Auto) 0.7 % Immature Granulocyte # (Auto) 0.06 0.00-0.02 K/uL Sodium Level 138 136-145 mmol/L Potassium Level 4.1 3.5-5.1 mmol/L Chloride Level 105 98-107 mmol/L Carbon Dioxide Level 27 21-32 mmol/L Anion Gap 6.0 3-11 mmol/L Blood Urea Nitrogen 14 7-18 mg/dl Creatinine 0.90 0.60-1.20 mg/dl Est Creatinine Clear Calc Drug Dose 83.6 ml/min Estimated GFR () 87.0 Estimated GFR (Non- 75.1 BUN/Creatinine Ratio 15.9 10-20 Random Glucose 127 70-99 mg/dl Calcium Level 8.7 8.5-10.1 mg/dl Total Bilirubin 0.6 0.2-1 mg/dl Direct Bilirubin 0.4 0-0.2 mg/dl Aspartate Amino Transf (AST/SGOT) 130 15-37 U/L Alanine Aminotransferase (ALT/SGPT) 66 12-78 U/L Alkaline Phosphatase 143 45-117 U/L Total Protein 7.3 6.4-8.2 gm/dl Albumin 3.7 3.4-5.0 gm/dl Lipase 47606 73-393 U/L Urine Color DK YELLOW Urine Appearance CLOUDY CLEAR Urine pH 5.5 4.5-7.5 Urine Specific [place] 1.029 1.000-1.030 Urine Protein NEG NEG Urine Glucose (UA) NEG NEG Urine Ketones TRACE NEG Urine Occult Blood NEG NEG Urine Nitrite NEG NEG Urine Bilirubin NEG NEG Urine Urobilinogen NEG NEG Urine Leukocyte Esterase TRACE NEG Urine WBC (Auto) 1-5 0-5 /hpf Urine RBC (Auto) 5-10 0-4 /hpf Urine Hyaline Casts (Auto) 1-5 0-5 /lpf Urine Epithelial Cells (Auto) 20-30 0-5 /lpf Urine Bacteria (Auto) NEG NEG Urine Crystals CALCIUM OXALATE NONE PRSENT Urine Test NEG NEG Prothrombin Time 10.7 9.0-12.0 SECONDS Prothromb Time International Ratio 1.0 0.9-1.1 Activated Partial Thromboplast Time 24.3 21.0-31.0 SECONDS Partial Thromboplastin Ratio 0.9 Microbiology Results 03/10/17 Urine Culture, Received Pending Diagnostic Radiology ABDOMEN AND PELVIS CT WITH IV CONTRAST CT DOSE: 876.68 mGycm HISTORY: Epigastric pain. TECHNIQUE: Multiaxial CT images of the abdomen and pelvis were performed following the use of intravenous contrast. COMPARISON STUDY: MRCP 03/02/2009. FINDINGS: Punctate calcified granulomas within the right lower lobe. No pneumoperitoneum. No pneumatosis. No fractures within the visualized osseous structures. Small hiatus hernia. A single prominent distal left thoracic periaortic lymph node on image 39 of 436. This measures 9 mm in short axis diameter. Prominent mesenteric lymph nodes which also measure subcentimeter in short axis diameter. Cholecystectomy. Hepatic steatosis. A 5 mm hypodense lesion within the left hepatic lobe. This is too small to characterize. The spleen, adrenal glands, and kidneys are unremarkable. No hydronephrosis. Normal caliber abdominal aorta. No pelvic free fluid. The bladder is unremarkable. An intrauterine device appears to be in good position. Mild peripancreatic inflammatory change. This is consistent with acute pancreatitis. The pancreas enhances normally. Fluid-filled colon. No evidence for bowel obstruction. Normal appendix. Question mild inflammatory change surrounding the terminal ileum. This is best seen on image 307. There is also suggestion of mild inflammatory change at the proximal ascending colon. IMPRESSION: 1. Mild peripancreatic inflammatory change. This is consistent with acute pancreatitis. Recommend correlation with pancreatic enzymes. 2. Question of mild inflammatory change surrounding the terminal ileum and ascending colon. This may represent a low-grade enterocolitis. There is an associated fluid-filled colon. 3. Cholecystectomy. 4. Hepatic steatosis. 5. A few prominent left thoracic periaortic and mesenteric lymph nodes. 6. The intrauterine device appears to be in good position. Impression Assessment and Plan ABDOMINAL PAIN Most likely secondary to acute pancreatitis from alcohol abuse; ?infectious enterocolitis given diarrhea, recent international travel; hepatitis considered unlikely- no fever, no RUQ pain Hx prior pancreatitis in 2008; was post cholecystectomy at that time; had unremarkable MRCP CT a/p- mild peripancreatic inflammatory change c/w acute pancreatitis. ? mild inflammatory change surrounding the terminal ileum and ascending colon. This may represent a low-grade enterocolitis. There is an associated fluid-filled colon; cholecystectomy; hepatic steatosis; a few prominent left thoracic periaortic and mesenteric lymph nodes; IUD in good position Lipase >24K, total bili WNL, direct bili 0.4, AST 130, ALT wnl, alk phos 143; noted to have abnormal LFT's in 2013- normalized in 07/2015 Transaminitis likely secondary to acute pancreatitis- recheck LFT's and lipase in am Check stool studies Check lipid panel in am to r/o hypertriglyceridemia induced pancreatitis Clear liquid diet NSS at 200 mL/hour PRN Zofran Consult GI ALCOHOL WITHDRAWAL Hx etoh abuse, was sober approx 2 years then relapsed 2 wks ago; drinking 1 bottle wine daily; last drink 03/09 night Improving with PRN IV Ativan Ativan and gabapentin per withdrawal protocol Received banana bag in ER Check urine drug screen, thiamine and folic acid Thiamine daily Hold naltrexone for now DEPRESSION Recently taken off Lexapro and Elavil approx 12 weeks ago due to sleep study results Recent suicidal ideation; denies suicidal ideation currently Continue Effexor Consult mental health ALLERGIC CONJUNCTIVITIS Ophthalmology contacted by ER physician Ordered Naphcon drops which were recommended by ophthalmology HISTORY OF PSVT Check EKG Continue metoprolol succinate ASTHMA Not in acute exacerbation Continue PRN albuterol inhaler DYSLIPIDEMIA Hold statin for now DVT PROPHYLAXIS Lovenox SQ DISPOSITION Admit to telemetry Follows w/ Dr. Alan for primary care Patient seen in collaboration with Dr. De. Please see her addendum. I have seen and examined the patient and agree with the note above. Please see addendum note for more details. Santino, DO Level of Care Critical Care Resuscitation Status FULL RESUSCITATION VTE Prophylaxis VTE Risk Assessment Done? Y/N: Yes Risk Level: Moderate Given or contraindicated: Enoxaparin (Lovenox)SQ Social Service Consult None Apply
[2017-03-10 16:32] LABS: BENZODIAZEPINE, URINE NEG (NEG); COCAINE,URINE NEG (NEG); PHENCYCLIDINE, URINE NEG (NEG)
[2017-03-10] MEDS: SODIUM CHLORIDE 0.9% 1000ML 1,000 ML IV SCH ×2 (17:04→19:45)
--- NOTE | 2017-03-10 17:14 | Gastrointestinal Consultation ---
Gastrointestinal Consultation Date of Consultation: Mar 10, 2017 Attending Physician: Deedee De Consulting Physician: Speedy Durant Reason for Consultation: Pancreatitis History of Present Illness Patient is a 51 year old female w PMHx of pancreatitis, ETOH abuse, depression, hx of SVT, Asthma, dyslipidemia, insomnia, sleep apnea who presented to ED w c/ o eye lid swelling and diarrhea x 2 weeks. She reported some small amts of rectal bleeding intermittently when wiping. She has associated diffuse abd pain , nausea, and reflux. She went to rehab for ETOH abuse 2 yrs ago, relapse 2 weeks ago and been drinking up to 1 bottle of wine daily. She had last drink around midnight last night. She admits having family stressors, and increased depression, anxiety and insomnia as she's been off her Lexapro and Elavil. Upon eval, bilateral eyes appeared to be swollen, and she is c/o itching. Hx of pollen allergy, denies URI symptoms. Labs: CBC unremarkable. CMP w mild LFTs elevation of Tbili 0.6, AST 130, ALT 66, Alk phos 143. Lipase >50768. She had CT abd/pelvis which showed inflammatory stranding on pancreas, hepatic steatosis. She is s/p cholecystectomy. ? low grade enterocolitis. She recently returned from [facility] on 02/18. She denies new meds, illicit drugs. Hx of pancreatitis on 2008. EUS unremarkable. She had a colonoscopy in 2016 which was unremarkable as well. Pt is seen laying in bed, stuporous, arousable when name called but falls asleep in mid sentences. She is oriented mostly to self and place. Noted on Tele monitor HR 110s-120s, She is also now febrile to 39. Abd exam benign otherwise. 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) Allergies Coded Allergies: Tetracycline (Verified Allergy, Mild, MINOCYCLINE-RASH, 03/10/17) Sulfa Antibiotics (Verified Allergy, Unknown, PT DOESN'T REMEMBER REACTION , 03/11/17) Current Medications Home Meds and Scripts Medications Dose Route/Sig Max Daily Dose Days Date Category Naltrexone Hcl 50 Mg Tab 100 Mg PO BID 30 03/10/17 Reported Effexor (Venlafaxine Hcl) 75 Mg Tab 75 Mg PO DAILY 03/10/17 Reported Gabapentin 100 Mg Cap 100 Mg PO BID 03/10/17 Reported Ventolin Hfa (Albuterol) 200 Puffs/02701 Mcg Aers 2 Puffs INH Q4H PRN 03/10/17 Reported Mirena (Levonorgestrel (Iud)) 20 Mcg/24 Hr Iud 1 INT UTER CONTINOUS 12/28/14 Reported Lipitor (Atorvastatin Calcium) 40 Mg Tab 40 Mg PO DAILY 12/28/14 Reported Toprol Xl (Metoprolol Succinate) 25 Mg Tabcr 25 Mg PO DAILY 12/28/14 Reported Review of Systems Constitutional: + chills, + fever Eyes: + problem reported (swelling of lids), + redness, + see HPI Respiratory: No cough, No shortness of breath Cardiac: No chest pain, No edema Abdomen: + diarrhea, + nausea, + pain, + see HPI, No vomiting Physical Exam Date Time Temp Pulse Resp B/P Pulse Ox O2 Delivery O2 Flow Rate FiO2 03/10/17 16:32 93 Nasal Cannula 2.0 03/10/17 16:14 Nasal Cannula 2.0 03/10/17 15:58 39.0 114 26 98/66 92 Nasal Cannula 2.0 03/10/17 15:14 103 26 115/72 98 Room Air 03/10/17 14:59 97 Room Air 03/10/17 13:54 99 03/10/17 13:33 98 20 116/51 97 Room Air 03/10/17 12:09 75 18 121/97 99 Room Air 03/10/17 10:07 36.8 82 18 130/91 98 Room Air General Appearance: + mild distress, + obese Eyes: + pertinent finding (bilateral lids w swelling) Neck: supple, no JVD, trachea midline Respiratory/Chest: no accessory muscle use, + decreased breath sounds, + wheezing (fine wheezes on upper lobes) Cardiovascular: regular rate, rhythm, no gallop, no murmur, + tachycardia Abdomen: non tender, soft, + abnormal bowel sounds (hypoactive) Extremities: normal inspection, no pedal edema, no calf tenderness Neurologic/Psych: + disoriented (stuporous, but awake when name called. oriented to self and place only) Laboratory Results Last 24 Hours Test 03/10/17 10:45 03/10/17 11:04 03/10/17 12:10 03/10/17 15:25 White Blood Count 8.96 K/uL Red Blood Count 4.90 M/uL Hemoglobin 15.9 g/dL Hematocrit 45.6 % Mean Corpuscular Volume 93.1 fL Mean Corpuscular Hemoglobin 32.4 pg Mean Corpuscular Hemoglobin Concent 34.9 g/dl Platelet Count 296 K/uL Mean Platelet Volume 9.3 fL Neutrophils (%) (Auto) 69.8 % Lymphocytes (%) (Auto) 23.3 % Monocytes (%) (Auto) 1.7 % Eosinophils (%) (Auto) 4.4 % Basophils (%) (Auto) 0.1 % Neutrophils # (Auto) 6.26 K/uL Lymphocytes # (Auto) 2.09 K/uL Monocytes # (Auto) 0.15 K/uL Eosinophils # (Auto) 0.39 K/uL Basophils # (Auto) 0.01 K/uL RDW Standard Deviation 43.5 fL RDW Coefficient of Variation 12.7 % Immature Granulocyte % (Auto) 0.7 % Immature Granulocyte # (Auto) 0.06 K/uL Sodium Level 138 mmol/L Potassium Level mmol/L 4.1 mmol/L Chloride Level 105 mmol/L Carbon Dioxide Level 27 mmol/L Anion Gap 6.0 mmol/L Blood Urea Nitrogen 14 mg/dl Creatinine 0.90 mg/dl Est Creatinine Clear Calc Drug Dose 83.6 ml/min Estimated GFR () 87.0 Estimated GFR (Non- 75.1 BUN/Creatinine Ratio 15.9 Random Glucose 127 mg/dl Calcium Level 8.7 mg/dl Total Bilirubin 0.6 mg/dl Direct Bilirubin mg/dl 0.4 mg/dl Aspartate Amino Transf (AST/SGOT) U/L 130 U/L Alanine Aminotransferase (ALT/SGPT) 66 U/L Alkaline Phosphatase 143 U/L Total Protein 7.3 gm/dl Albumin 3.7 gm/dl Lipase 43927 U/L Urine Color DK YELLOW Urine Appearance CLOUDY Urine pH 5.5 Urine Specific [place] 1.029 Urine Protein NEG Urine Glucose (UA) NEG Urine Ketones TRACE Urine Occult Blood NEG Urine Nitrite NEG Urine Bilirubin NEG Urine Urobilinogen NEG Urine Leukocyte Esterase TRACE Urine WBC (Auto) 1-5 /hpf Urine RBC (Auto) 5-10 /hpf Urine Hyaline Casts (Auto) 1-5 /lpf Urine Epithelial Cells (Auto) 20-30 /lpf Urine Bacteria (Auto) NEG Urine Crystals CALCIUM OXALATE Urine Test NEG Prothrombin Time 10.7 SECONDS Prothromb Time International Ratio 1.0 Activated Partial Thromboplast Time 24.3 SECONDS Partial Thromboplastin Ratio 0.9 Vitamin B12 Level 775 pg/mL Folate > 24.00 ng/mL Test 03/10/17 16:00 Urine Opiates Screen NEG Urine Methadone, Qualitative NEG Urine Barbiturates NEG Urine Phencyclidine (PCP) Level NEG Ur Amphetamine/Methamphetamine NEG MDMA (Ecstasy) Screen NEG Urine Benzodiazepines Screen NEG Urine Cocaine Metabolite NEG Urine Marijuana (THC) NEG Impression Patient is a 51 year old female admitted for swollen eye lids (suspected allergies), diarrhea and ETOH pancreatitis. Current presentation worrisome for DTs (febrile, increased HR, shaky). Plan - Protonix 40mg IV BID - NPO except meds - Had 1L NS bolus, added another 1L NS bolus, then continuous IVF of NS w vitamins (banana bag) @ 200ml/hr; Monitor H/H and Cr, Lipase - DT protocol; I spoke w primary hospitalist (Dr. De) that pt would be best transferred to PCU bed. - Defer MRCP as less likely has gallstone pancreatitis. She is s/p cholecystectomy. Likely has ETOH pancreatitis - Obtain stool cx, Cdiff to r/o infectious processes. - ETOH cessation; recommend psych eval for inpt rehab. - Will follow closely I performed a history and physical examination of the patient. I have discussed the patient's case, impression and plan with TOMER Wallis on . Her note reflects my findings and plan. No need for MRCP at this point. Agressive IV hydration and NPO. Speedy Durant MD
[2017-03-10] MEDS ORDERED: SODIUM CHLORIDE 0.9% 1000ML 1,000 ML IV SCH (17:30)
[2017-03-10] MEDS ORDERED: GABAPENTIN 1200MG LOADING DOSE PO ONE (18:30)
[2017-03-10] MEDS ORDERED: METOPROLOL TARTRATE 1 MG/ML VIAL IV PRN (19:00)
[2017-03-10 19:39] LABS: MAGNESIUM 1.8 mg/dl (1.8-2.4); PHOSPHORUS 2.3 mg/dl (2.5-4.9)
[2017-03-10 19:39] LABS: INFLUENZA A PCR Neg for Influ A (NEG); INFLUENZA B PCR Neg for Influ B (NEG)
[2017-03-10] MEDS: METOPROLOL TARTRATE 25 MG TAB PO SCH (20:19)
[2017-03-10] MEDS: ENOXAPARIN 40 MG/0.4 ML SYR SC SCH (20:20)
[2017-03-10] MEDS ORDERED: MAGNESIUM SULFATE IV SCH (21:00)
[2017-03-10] MEDS ORDERED: SODIUM PHOSPHATE IV SCH (21:00)
[2017-03-10] MEDS ORDERED: [UNRECOGNIZED DRUG - OTHER] IV SCH (21:00)
[2017-03-10] MEDS ORDERED: SODIUM CHLORIDE IV SCH (21:00)
[2017-03-10] MEDS ORDERED: SODIUM PHOSPHATE INJ 15 MMOL in SODIUM CHLORIDE 0.9% 250ML 250 ML IV ONE (21:30)
[2017-03-10] MEDS: MAGNESIUM SULFATE 1GM / D5W 1 GM in PREMIXED IN D5W 100 ML IV SCH ×2 (21:39→23:17)
[2017-03-10] MEDS: PANTOprazole INJ 40 MG in SYRINGE 0 ML IV SCH (21:54)
[2017-03-11] VITALS (12 sets, daily range): BP systolic 111–140; BP diastolic 49–92; PULSE 73–87; TEMP 36.7–37; O2SAT 94–100
[2017-03-11] MEDS: GABAPENTIN 600MG Q6H DOSE PO SCH ×2 (00:38→06:12)
[2017-03-11] MEDS: SODIUM CHLORIDE 0.9% 1000ML 1,000 ML IV SCH ×3 (00:45→06:11)
--- NOTE | 2017-03-11 03:10 | CRITICAL CARE CONSULTATION ---
DATE OF CONSULTATION: 03/10/2017 CHIEF COMPLAINT: Diarrhea. 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 She has a history of alcoholism as well as pancreatitis and has been drinking 1-2 bottles of wine per day for at least the past week. Initially, she did not disclose this to the Emergency Department. She reports diarrhea off and on for at least 2 weeks, worse over the past few days without any formed stools over the past 2 days. She says it has been orange and very loose at times, but denies melena or hematochezia. She has had a small amount of blood on the tissue paper with wiping the area. She vomited once today, but denies hematemesis or coffee-ground emesis. The abdominal pain has worsened over the past 2 days and is generalized. She reports she has a history of gastritis and the pain feels similar to that. She rates her abdominal pain 1/10 presently. Her last drink was last night. She has been through alcohol rehab approximately 2 years ago, but has relapsed since that time. She has a lot of life stressors as well. A slit lamp evaluation was performed in the Emergency Department and Dr. Kelly from ophthalmology was contacted and recommended topical antihistamines. She was also given 1 liter of normal saline as well as 2 mg of Ativan and a banana bag. She was given Maalox as well. She was admitted to the floor and transferred to the intensive care unit for closer monitoring. She has been seen by the GI service already today. CT scan of the abdomen was performed and showed mild peripancreatic inflammatory change and a question of mild inflammatory change surrounding the terminal ileum and ascending colon. PAST MEDICAL HISTORY: Pancreatitis; asthma; depression; paroxysmal supraventricular tachycardia; diverticulosis; hyperlipidemia; obstructive sleep apnea and sleep study within the past 6 months showing that she had disruption in her REM sleep, her antidepressants were stopped at that time, she does not use CPAP; migraine; insomnia and environmental allergies. PAST SURGICAL HISTORY: Status post cholecystectomy. ALLERGIES: TETRACYCLINE AND SULFA. OUTPATIENT MEDICATIONS: Lipitor, gabapentin, Toprol-XL, naltrexone, venlafaxine, albuterol p.r.n. and Mirena IUD. Doses have all been reviewed. 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 She has 2 children, both of whom are 18 years old. She has had 1-2 bottles of wine per day for the past several weeks. She recently returned from [facility] on February 18. She has never smoked. She is . FAMILY HISTORY: Significant for heart disease and cancer. REVIEW OF SYSTEMS: The right eye has been itchy. She denies headache. She has been thirsty. She denies shortness of breath or chest pain. She denies recent falls or acute skin changes. Additional review of systems is negative, noncontributory or as presented in the history of present illness. A 12-point review of systems was obtained. PHYSICAL EXAMINATION: GENERAL: This is a tired-appearing woman, lying in bed in no acute distress. She will awaken to a loud voice. VITAL SIGNS: Temperature 39, blood pressure 98-130/60s to 90s, heart rate 75-114, respiratory rate 18-26 and pulse ox 93% on 2 liters nasal cannula. HEENT: There is periorbital edema of the right eye and small amount of crusting on the lower lid. The sclera is mildly injected. Oral mucosa is somewhat dry. Posterior pharynx is clear. Pupils are round, equal and reactive bilaterally. NECK: No adenopathy, no JVD. LUNGS: Clear to auscultation bilaterally. No rales, rhonchi or wheezes. HEART: Tachycardic, regular, no murmurs. ABDOMEN: Obese, soft, mildly distended, mild left lower quadrant tenderness and mid epigastric tenderness. No rebound or guarding. EXTREMITIES: Warm with 1+ distal pulses. SKIN: Warm and dry. NEUROLOGIC: She is able to carry on a conversation and she is oriented to person and place. She is very mildly tremulous. She moves all 4 extremities equally. LABORATORY DATA: White blood cell count 8.96, hemoglobin 15.9, hematocrit 45.6 and platelets 296. Sodium 138, potassium 4.1, chloride 105, CO2 27, BUN 14, creatinine 0.9, blood sugar 127, alkaline phosphatase 143, ALT 66, AST 130, direct bilirubin 0.4, lipase 24,735 and albumin 3.7. PT, PTT and INR are within normal limits. Urinalysis; with trace leukocyte esterase, 20-30 epithelial cells and calcium oxalate crystals. Urine is negative. Toxicology screen is negative. Influenza A and B are pending as is C. diff. Stool culture, fecal leukocyte smear and urine culture. RADIOGRAPHIC STUDIES: 1. CT of the abdomen; mild peripancreatic inflammatory change. 2. Question of mild inflammatory change found in the terminal ileum and ascending colon. 3. Cholecystectomy. 4. Hepatic steatosis. 5. A few prominent left thoracic periaortic and mesenteric lymph nodes. 6. The intrauterine device appears to be in good position. PRESENT MEDICATIONS: Acetaminophen, albuterol, Lovenox, gabapentin, Ativan, metoprolol, Zofran, Protonix, normal saline at 200 mL per hour and Effexor. IMPRESSION: 1. Acute pancreatitis, likely secondary to alcohol use. 2. Diarrhea with suggestion of colitis on CT scan. Clostridium difficile assay is pending. She has not been on any recent antibiotics. White blood cell count is within normal limits. Lactic acid is pending. 3. Alcoholism and at risk for alcohol withdrawal. She is tachycardic, which could be secondary to the pancreatitis or potentially alcohol withdrawal. This could also be true of her fever, which she appears to have defervesced for now. 4. Sinus tachycardia with history of paroxysmal supraventricular tachycardia. 5. Depression with recent suicidal ideation. 6. Mildly elevated transaminases, likely secondary to alcohol use. 7. Hepatic steatosis seen on CT scan. 8. History of asthma. 9. Pruritis of the right eye, likely secondary to allergy. PLAN: NEUROLOGIC: Continue to evaluate for alcohol withdrawal. She is on the alcohol withdrawal protocol with scheduled gabapentin and p.r.n. Ativan. She does not appear to be in much pain presently. Treat with acetaminophen and try to avoid opioids. PULMONARY: No active issues. However, she could develop some systemic inflammatory response syndrome or even acute respiratory distress syndrome from pancreatitis. Monitor sats and respiratory status. GASTROINTESTINAL: Maintain n.p.o. status and follow up on the stool studies. She is on gastrointestinal prophylaxis with Protonix b.i.d. Follow up lipase in the morning. Continue banana bag and aggressive hydration. Fecal management system has been ordered due to the volume and frequency of stools. GI service is seeing her. INFECTIOUS DISEASE: Hold off on antibiotics for now. Should she have another fever obtain blood cultures and consider empiric antibiotics for Clostridium difficile if her clinical status worsens. Lactic acid is pending. RENAL: Low threshold to place a [place] catheter. Continue aggressive volume resuscitation. Replete electrolytes as needed. CARDIOVASCULAR: She is normally on a beta vicky which I have resumed, but I have discontinued the long-acting formulation. She also has p.r.n. IV Lopressor. MISCELLANEOUS: She is getting Lovenox for deep venous thrombosis prophylaxis. I have added naphazoline drops to the right eye p.r.n. itching. She may also benefit from a mental health evaluation after her acute issues are stabilized. Thank you for asking me to see this patient. Please call me with any questions or concerns. Critical care time is 60 minutes. MTDD
[2017-03-11 05:21] LABS: HEMATOCRIT 42.8 % (37-47); MEAN CELL VOLUME 93.7 fL (80-100); MEAN CORPUSCULAR HEMOGLOBIN 31.7 pg (25-34); MEAN CORPUSCULAR HGB CONC 33.9 g/dl (32-36); MEAN PLATELET VOLUME 9.4 fL (7.4-10.4); PLATELET COUNT 304 K/uL (130-400); RED BLOOD COUNT 4.57 M/uL (4.2-5.4); WHITE BLOOD COUNT 12.86 K/uL (4.8-10.8)
[2017-03-11 05:51] LABS: BASO % 0.2 %; BASO ABS # 0.02 K/uL (0-0.2); COMPLETE YES; EOS % 10.7 %; IG% 0.5 %; LYMPH % 11.9 %; LYMPH ABS # 1.53 K/uL (1.2-3.4); MONO % 8.9 %; NEUT % 67.8 %
[2017-03-11 05:53] LABS: ALKALINE PHOSPHATASE 135 U/L (45-117); ALT/SGPT 215 U/L (12-78); AST/SGOT 114 U/L (15-37); BLOOD UREA NITROGEN 18 mg/dl (7-18); BUN/CREATININE RATIO 18.9 (10-20); CALCIUM 7.3 mg/dl (8.5-10.1); CARBON DIOXIDE 23 mmol/L (21-32); CHLORIDE 111 mmol/L (98-107); CHOLESTEROL 122 mg/dl (0-200); CHOLESTEROL/HDL RATIO 4.1; CREATININE 0.94 mg/dl (0.60-1.20); GLUCOSE 109 mg/dl (70-99); HDL CHOLESTEROL 30 mg/dl; LDL CHOLESTEROL CALCULATED 65 mg/dl; MAGNESIUM 2.4 mg/dl (1.8-2.4); POTASSIUM 3.4 mmol/L (3.5-5.1); SODIUM 143 mmol/L (136-145); TRIGLYCERIDES 137 mg/dl (0-150); VERY LOW DENSITY LIPOPROT CALC 27 mg/dl
[2017-03-11 07:09] LABS: PHOSPHORUS 4.5 mg/dl (2.5-4.9)
[2017-03-11] MEDS: POTASSIUM CHLR 10 MEQ / WTR 10 MEQ in PREMIXED WATER 100 ML IV SCH ×4 (08:59→13:00)
[2017-03-11] MEDS: METOPROLOL TARTRATE 25 MG TAB PO SCH (09:00)
[2017-03-11] MEDS ORDERED: MULTI-VITAMIN INFUSION INJ 10 ML, THIAMINE HCL INJ 100 MG, FoLIC ACID INJ 1 MG in SODIU... IV SCH (09:00)
[2017-03-11] MEDS ORDERED: VENLAFAXINE HCL XR 75 MG CAPXR PO SCH (09:00)
[2017-03-11] MEDS ORDERED: METOPROLOL SUCC 25MG EXT REL TAB PO SCH (09:00)
[2017-03-11] MEDS: PANTOprazole INJ 40 MG in SYRINGE 0 ML IV SCH ×2 (09:03→22:23)
[2017-03-11] MEDS ORDERED: LOPERAMIDE HCL 2 MG CAP PO STA (09:27)
--- NOTE | 2017-03-11 10:07 | Gastroenterology Progress Note ---
Progress Note Date of Service: Mar 11, 2017 Subjective Pt evaluation today including: conversation w/ patient, physical exam, chart review, lab review, review of studies, review of inpatient medication list Pt appears more alert and oriented. Afebrile since yesterday evening, HR normal , BP stable. She denies any CP, SOB, abd pain, n/v. Has rectal tube (Dignishield ) placed yesterday for diarrhea management. Cdiff negative, Stool cx pending. LFTs increased but Lipase trended down to 500s from >24K. Review of Systems Constitutional: No chills, No fever Eyes: + problem reported (eye lid swelling improved per pt. ) Respiratory: No cough, No shortness of breath Cardiac: No chest pain Abdomen: + diarrhea, + see HPI, No nausea, No pain, No vomiting Medications Current Inpatient Medications Medications (Trade) Dose Ordered Sig/Raheem Route Start Time Stop Time Status Last Admin Dose Admin Ioversol (Optiray 320) 100 ml UD PRN IV 03/10/17 12:45 03/14/17 12:44 Enoxaparin Sodium (Lovenox Inj) 40 mg Q24H SC 03/10/17 21:00 04/09/17 20:59 03/10/17 20:20 40 MG Acetaminophen (Tylenol Tab) 650 mg Q4H PRN PO 03/10/17 14:45 04/09/17 14:44 Ondansetron HCl (Zofran Inj) 4 mg Q6H PRN IV 03/10/17 14:45 04/09/17 14:44 Albuterol (Ventolin Hfa Inhaler) 2 puffs Q4H PRN INH 03/10/17 15:00 04/09/17 14:59 Venlafaxine HCl (effeXOR EXTENDED REL CAP) 75 mg DAILY PO 03/11/17 09:00 04/10/17 08:59 03/11/17 09:01 75 MG Lorazepam SEE PROTOCOL UD PRN PO 03/10/17 15:15 04/09/17 15:14 Pantoprazole Sodium/Syringe (Protonix Inj/ Syringe) 10 ml @ 5 mls/min DAILY@,21 IV 03/10/17 21:00 04/09/17 20:59 03/11/17 09:03 5 MLS/MIN Gabapentin (Neurontin Tab) 600 mg Q8H PO 03/11/17 14:00 03/12/17 06:01 Gabapentin (Neurontin Tab) 600 mg Q12H PO 03/12/17 18:00 03/13/17 06:01 Gabapentin 600 mg 600 mg Q24H PO 03/14/17 06:00 03/14/17 06:01 Multivitamins/ Thiamine HCl/ Folic Acid/Sodium Chloride (Mvi Infusion Inj/Vitamin B-1 Inj/Folvite Inj/ Nss 1000ml) 1,011.2 ml @ 200 mls/ hr DAILY IV 03/11/17 09:00 03/11/17 14:04 03/11/17 08:59 200 MLS/HR Metoprolol Tartrate (Lopressor Iv) 5 mg Q6 PRN IV 03/10/17 19:00 04/09/17 18:59 Naphazoline HCl/ Pheniramine Maleate 2 drops 2 drops Q6H PRN OPR 03/10/17 19:00 04/09/17 18:59 Potassium Chloride 10 meq/ Prmx 100 ml @ 100 mls/hr Q1H IV 03/11/17 08:00 03/11/17 11:59 03/11/17 08:59 100 MLS/HR Sodium Chloride (1/2 Nss 1000ml) 1,000 ml @ 150 mls/hr Q6H40M IV 03/11/17 14:00 04/10/17 13:59 Loperamide HCl 2 mg 2 mg Q6H PRN PO 03/11/17 09:30 04/10/17 09:29 Calcium Gluconate/ Sodium Chloride (Calcium Gluconate 10%/Nss 50ml) 60 ml @ 240 mls/hr 1015 ONCE IV 03/11/17 10:15 03/11/17 10:29 Metoprolol Tartrate (Lopressor Tab) 25 mg BID PO 03/11/17 21:00 03/11/17 23:00 UNV Pantoprazole Sodium (Protonix Tab) 40 mg QAM PO 03/12/17 09:00 04/11/17 08:59 UNV Metoprolol Succinate (Toprol Xl Tab) 25 mg QAM PO 03/12/17 09:00 04/11/17 08:59 UNV Multivitamins/ Minerals (Multivitamin W/ Minerals Tab) 1 tab QAM PO 03/12/17 09:00 04/11/17 08:59 UNV Thiamine HCl (Vitamin B-1 Tab) 100 mg QAM PO 03/12/17 09:00 04/11/17 08:59 UNV Folic Acid (Folvite Tab) 1 mg QAM PO 03/12/17 09:00 04/11/17 08:59 UNV Objective Vital Signs Date Time Temp Pulse Resp B/P Pulse Ox O2 Delivery O2 Flow Rate FiO2 03/11/17 08:00 Nasal Cannula 2.0 03/11/17 08:00 36.7 82 17 127/90 98 Nasal Cannula 2.0 03/11/17 04:00 Nasal Cannula 2.0 03/11/17 04:00 37.0 81 19 117/66 100 Nasal Cannula 2.0 03/11/17 03:01 77 22 114/49 96 Nasal Cannula 2.0 03/11/17 02:00 83 23 113/67 95 Nasal Cannula 2.0 03/11/17 01:00 87 19 128/88 98 Nasal Cannula 2.0 03/11/17 00:09 36.9 87 19 111/63 95 2.0 03/11/17 00:00 Nasal Cannula 2.0 03/10/17 23:01 89 35 109/71 95 Nasal Cannula 2.0 03/10/17 22:00 88 40 114/77 96 Nasal Cannula 2.0 03/10/17 21:00 94 24 123/77 95 Nasal Cannula 2.0 03/10/17 20:10 109 19 110/72 98 Nasal Cannula 2.0 03/10/17 20:01 106 21 87/60 97 Nasal Cannula 2.0 03/10/17 20:00 Nasal Cannula 2.0 03/10/17 20:00 37.3 110 17 97 Nasal Cannula 2.0 03/10/17 17:23 39.0 114 26 93 2.0 03/10/17 16:32 93 Nasal Cannula 2.0 03/10/17 16:14 Nasal Cannula 2.0 03/10/17 15:58 39.0 114 26 98/66 92 Nasal Cannula 2.0 03/10/17 15:14 103 26 115/72 98 Room Air 03/10/17 14:59 97 Room Air 03/10/17 13:54 99 03/10/17 13:33 98 20 116/51 97 Room Air 03/10/17 12:09 75 18 121/97 99 Room Air 03/10/17 10:07 36.8 82 18 130/91 98 Room Air Physical Exam General Appearance: WD/WN, no apparent distress, + obese Eyes: normal inspection, PERRL, EOMI Neck: supple, no JVD, trachea midline Respiratory/Chest: no respiratory distress, no accessory muscle use, + decreased breath sounds Cardiovascular: regular rate, rhythm, no gallop, no murmur Abdomen: non tender, soft, + abnormal bowel sounds (hypoactive) Extremities: normal inspection, no pedal edema, no calf tenderness Neurologic/Psych: alert, normal mood/affect, oriented x 3 Skin: normal color, no jaundice, no rash Laboratory Results Last 24 Hours Test 03/10/17 10:45 03/10/17 11:04 03/10/17 12:10 03/10/17 15:25 White Blood Count 8.96 K/uL Red Blood Count 4.90 M/uL Hemoglobin 15.9 g/dL Hematocrit 45.6 % Mean Corpuscular Volume 93.1 fL Mean Corpuscular Hemoglobin 32.4 pg Mean Corpuscular Hemoglobin Concent 34.9 g/dl Platelet Count 296 K/uL Mean Platelet Volume 9.3 fL Neutrophils (%) (Auto) 69.8 % Lymphocytes (%) (Auto) 23.3 % Monocytes (%) (Auto) 1.7 % Eosinophils (%) (Auto) 4.4 % Basophils (%) (Auto) 0.1 % Neutrophils # (Auto) 6.26 K/uL Lymphocytes # (Auto) 2.09 K/uL Monocytes # (Auto) 0.15 K/uL Eosinophils # (Auto) 0.39 K/uL Basophils # (Auto) 0.01 K/uL RDW Standard Deviation 43.5 fL RDW Coefficient of Variation 12.7 % Immature Granulocyte % (Auto) 0.7 % Immature Granulocyte # (Auto) 0.06 K/uL Sodium Level 138 mmol/L Potassium Level mmol/L 4.1 mmol/L Chloride Level 105 mmol/L Carbon Dioxide Level 27 mmol/L Anion Gap 6.0 mmol/L Blood Urea Nitrogen 14 mg/dl Creatinine 0.90 mg/dl Est Creatinine Clear Calc Drug Dose 83.6 ml/min Estimated GFR () 87.0 Estimated GFR (Non- 75.1 BUN/Creatinine Ratio 15.9 Random Glucose 127 mg/dl Calcium Level 8.7 mg/dl Total Bilirubin 0.6 mg/dl Direct Bilirubin mg/dl 0.4 mg/dl Aspartate Amino Transf (AST/SGOT) U/L 130 U/L Alanine Aminotransferase (ALT/SGPT) 66 U/L Alkaline Phosphatase 143 U/L Total Protein 7.3 gm/dl Albumin 3.7 gm/dl Lipase 02405 U/L Urine Color DK YELLOW Urine Appearance CLOUDY Urine pH 5.5 Urine Specific Anderson 1.029 Urine Protein NEG Urine Glucose (UA) NEG Urine Ketones TRACE Urine Occult Blood NEG Urine Nitrite NEG Urine Bilirubin NEG Urine Urobilinogen NEG Urine Leukocyte Esterase TRACE Urine WBC (Auto) 1-5 /hpf Urine RBC (Auto) 5-10 /hpf Urine Hyaline Casts (Auto) 1-5 /lpf Urine Epithelial Cells (Auto) 20-30 /lpf Urine Bacteria (Auto) NEG Urine Crystals CALCIUM OXALATE Urine Test NEG Prothrombin Time 10.7 SECONDS Prothromb Time International Ratio 1.0 Activated Partial Thromboplast Time 24.3 SECONDS Partial Thromboplastin Ratio 0.9 Phosphorus Level 2.3 mg/dl Magnesium Level 1.8 mg/dl Vitamin B12 Level 775 pg/mL Folate > 24.00 ng/mL Test 03/10/17 16:00 03/10/17 17:00 03/10/17 19:50 03/11/17 05:03 Urine Opiates Screen NEG Urine Methadone, Qualitative NEG Urine Barbiturates NEG Urine Phencyclidine (PCP) Level NEG Ur Amphetamine/Methamphetamine NEG MDMA (Ecstasy) Screen NEG Urine Benzodiazepines Screen NEG Urine Cocaine Metabolite NEG Urine Marijuana (THC) NEG Influenza Type A (RT-PCR) Neg for Influ A Influenza Type B (RT-PCR) Neg for Influ B Lactic Acid Level 1.4 mmol/L 1.1 mmol/L White Blood Count 12.86 K/uL Red Blood Count 4.57 M/uL Hemoglobin 14.5 g/dL Hematocrit 42.8 % Mean Corpuscular Volume 93.7 fL Mean Corpuscular Hemoglobin 31.7 pg Mean Corpuscular Hemoglobin Concent 33.9 g/dl Platelet Count 304 K/uL Mean Platelet Volume 9.4 fL Neutrophils (%) (Auto) 67.8 % Lymphocytes (%) (Auto) 11.9 % Monocytes (%) (Auto) 8.9 % Eosinophils (%) (Auto) 10.7 % Basophils (%) (Auto) 0.2 % Neutrophils # (Auto) 8.73 K/uL Lymphocytes # (Auto) 1.53 K/uL Monocytes # (Auto) 1.14 K/uL Eosinophils # (Auto) 1.38 K/uL Basophils # (Auto) 0.02 K/uL RDW Standard Deviation 45.3 fL RDW Coefficient of Variation 13.2 % Immature Granulocyte % (Auto) 0.5 % Immature Granulocyte # (Auto) 0.06 K/uL Red Blood Cell Morphology Unremarkable Sodium Level 143 mmol/L Potassium Level 3.4 mmol/L Chloride Level 111 mmol/L Carbon Dioxide Level 23 mmol/L Anion Gap 9.0 mmol/L Blood Urea Nitrogen 18 mg/dl Creatinine 0.94 mg/dl Est Creatinine Clear Calc Drug Dose 80.0 ml/min Estimated GFR () 82.6 Estimated GFR (Non- 71.2 BUN/Creatinine Ratio 18.9 Random Glucose 109 mg/dl Calcium Level 7.3 mg/dl Phosphorus Level 4.5 mg/dl Magnesium Level 2.4 mg/dl Total Bilirubin 0.3 mg/dl Direct Bilirubin < 0.1 mg/dl Aspartate Amino Transf (AST/SGOT) 114 U/L Alanine Aminotransferase (ALT/SGPT) 215 U/L Alkaline Phosphatase 135 U/L Total Protein 5.4 gm/dl Albumin 2.7 gm/dl Triglycerides Level 137 mg/dl Cholesterol Level 122 mg/dl HDL Cholesterol 30 mg/dl LDL Cholesterol, Calculated 65 mg/dl VLDL Cholesterol, Calculated 27 mg/dl Cholesterol/HDL Ratio 4.1 Lipase 573 U/L Assessment and Plan Patient is a 51 year old female admitted for swollen eye lids (suspected allergies), diarrhea and ETOH pancreatitis. Plans - Protonix 40mg IV BID - Sips and chips; may advance slowly to CL diet today - IVF of NS w vitamins (banana bag) @ 200ml/hr; Monitor H/H and Cr, Lipase - DT protocol - Defer MRCP as less likely has gallstone pancreatitis. She is s/p cholecystectomy. Likely has ETOH pancreatitis - F/u stool cx, Cdiff negative. - ETOH cessation; recommend psych eval for inpt rehab. I performed a history and physical examination of the patient. I have discussed the patient's case, impression and plan with TOMER Wallis. Her note reflects my findings and plan. Right eye is better. No N/V. No fever. Continue current care. Speedy Durant MD
[2017-03-11] MEDS ORDERED: CALCIUM GLUCONATE 10% 1,000 MG in SODIUM CHLORIDE 0.9% 50ML 50 ML IV ONE (10:15)
--- NOTE | 2017-03-11 11:00 | CRITICAL CARE PROGRESS NOTE ---
DATE: 03/11/2017 This is a 51-year-old woman admitted to the intensive care unit last night from the floor, secondary to tachycardia, alcohol withdrawal, fever and pancreatitis. There were no acute events overnight. She continues to have diarrhea, estimated to be about 750 mL overnight. A [place] catheter was placed this morning, as well. She reports that her right eye feels better today and she denies abdominal pain. She denies shortness of breath, nausea or vomiting. She is presently taking some ice chips. She denies feeling tremulous, but does feel mildly anxious. VITAL SIGNS: Maximum temperature 39, heart rate 70s to 80s, respiratory rate 19 to 35, blood pressure 109-128/60s-80s, oxygen saturation 100% on 2 liters nasal canula. Fluid balance since admission is positive 2 liters, 750 mL of stool. PHYSICAL EXAMINATION: GENERAL: She is awake, alert and in no distress. She does appear fatigued. The right eye is less erythematous and less swollen. LUNGS: Clear to auscultation bilaterally. No rales, rhonchi or wheezes. HEART: Regular rate and rhythm. ABDOMEN: Round, soft, mildly distended, nontender. Active bowel sounds. EXTREMITIES: Warm. No edema. NEUROLOGIC: She has no tremor, no asterixis, moves all 4 extremities equally and is easily able to carry on a conversation. LABORATORY DATA: White blood cell count 12.86, hemoglobin 14.5, hematocrit 42.8, platelets 304. Sodium 143, potassium 3.4, chloride 111, CO2 23, BUN 18, creatinine 0.94. Blood sugar 109, calcium 7.3. Direct bilirubin less than 0.1, total bilirubin 0.3, AST 114, ALT 215, alkaline phosphatase 135. Total protein 5.4, albumin 2.7. Lipase 573. Influenza A and B negative. MEDICATIONS AND INFUSIONS: Acetaminophen, albuterol, Lovenox, gabapentin, loperamide, Ativan p.r.n., Lopressor, banana bag, VISINE-A ophthalmic solution, Protonix, potassium, normal saline 200 mL per hour, Effexor. IMPRESSION: 1. Acute pancreatitis, improved. 2. Diarrhea with possible colitis. Clostridium. difficile assay is negative and fecal leukocytes are pending. She remains on relatively aggressive volume via the IV, secondary to the volume of stool and her pancreatitis. 3. Mildly elevated transaminases, likely secondary to alcohol use. 4. Alcoholism and withdrawal symptoms that are better controlled today than yesterday. 5. Fever, status post blood cultures x2. She is not presently on antibiotics. Fever could be due to her colitis, withdrawal or the pancreatitis. 6. History of paroxysmal supraventricular tachycardia. 7. Sinus tachycardia, resolved. 8. Depression with recent suicidal ideation, presently on Effexor. 9. History of asthma. 10. Mild scleral injection and periorbital edema of the right eye, improved. PLAN: NEUROLOGIC: Continue gabapentin per the alcohol withdrawal protocol. She has as needed Ativan as well. Continue Effexor. Mental health has been consulted. GASTROINTESTINAL: Continue fecal management system. She is now on ice chips and per GI, we can advance to clears later today. I have also started some Imodium after talking to them. INFECTIOUS DISEASE: Follow cultures and hold off on any antibiotics. CARDIOVASCULAR: Resume Toprol-XL tomorrow. Discontinue p.r.n. Lopressor. Watch volume status. RENAL: Replete electrolytes, specifically potassium and calcium. I have changed her IV fluids to half normal saline at 150 mL per hour. Hopefully, as her diarrhea slows down, we can back off on the fluids a bit. She may require some LR boluses, depending on her urinary outputs. PULMONARY: No active issues. MISCELLANEOUS: Continue Lovenox for DVT prophylaxis, VISINE-A for her right eye and change proton pump inhibitor to the enteral form. She is improved compared to last evening when she was transferred to the ICU. If her clinical status remains as is, I think she can be transferred to the floor or telemetry later today. KALANI
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
[2017-03-11] MEDS: GABAPENTIN 600MG Q8H DOSE PO SCH ×2 (14:36→21:50)
[2017-03-11] MEDS: SODIUM CHLORIDE 0.45% 1000ML 1,000 ML IV SCH ×2 (14:37→20:06)
--- NOTE | 2017-03-11 15:55 | Progress Note ---
Internal Med Progress Note Date of Service: Mar 11, 2017. Provider Documentation: SUBJECTIVE: Patient is doing better. Epigastric pain has resolved. No nausea, vomiting, fever, chills, No tremors OBJECTIVE: Vital Signs-as noted below Exam: General-AAOX3, no distress Eyes-No icterus Neck- Supple, No JVD Lungs-AEBE, no wheezing, crackles Heart-S1, S2 normal, no murmurs Abdomen-Soft, non tender, non distended, BS present Extremities-No edema Neuro-No focal deficits Lab data as noted below. ASSESSMENT & PLAN: ACUTE PANCREATITIS, Likely alcoholic Hx prior pancreatitis in 2008; was post cholecystectomy at that time; had unremarkable MRCP Work up- CT abdomen/pelvis - Mild peripancreatic inflammatory change c/w acute pancreatitis. ? mild inflammatory change surrounding the terminal ileum and ascending colon. This may represent a low-grade enterocolitis. There is an associated fluid-filled colon; cholecystectomy; hepatic steatosis; a few prominent left thoracic periaortic and mesenteric lymph nodes; IUD in good position -Clinically improved, epigastric pain has resolved, Lipase trending down -IV fluids. Advance to clear liquid per GI -Pain mx -Work up- Lipase >24K --> 573 ,LFTs slightly elevated, likely secondary to alcohol abuse ALCOHOL WITHDRAWAL Hx Etoh abuse, was sober approx 2 years then relapsed 2 wks ago; drinking 1 bottle wine daily; last drink 03/09 night Improving with PRN IV Ativan -IV Ativan and gabapentin per withdrawal protocol -IV fluids -Thiamine, MV. -Hold natrexone DEPRESSION : Recently taken off Lexapro and Elavil approx 12 weeks ago due to sleep study results Recent suicidal ideation; denies suicidal ideation currently -Continue Effexor- Increased to 150 mg daily per Psych -Appreciate psych inputs ALLERGIC CONJUNCTIVITIS Ophthalmology contacted by ER physician - Ordered Naphcon drops which were recommended by ophthalmology HISTORY OF PSVT -Stable, NSR -Continue metoprolol succinate ASTHMA Not in acute exacerbation -Continue PRN albuterol inhaler DYSLIPIDEMIA -Hold statin for now DVT PROPHYLAXIS -Lovenox SQ DISPOSITION Okay to transfer to med/surg Follows w/ Dr. Alan for primary care Vital Signs: Date Time Temp Pulse Resp B/P Pulse Ox O2 Delivery O2 Flow Rate FiO2 03/11/17 14:00 80 16 129/71 96 Room Air 03/11/17 12:00 36.8 78 16 140/90 99 Room Air 03/11/17 12:00 Room Air 03/11/17 10:00 73 16 116/79 97 Room Air 03/11/17 08:00 Nasal Cannula 2.0 03/11/17 08:00 36.7 82 17 127/90 98 Nasal Cannula 2.0 03/11/17 04:00 Nasal Cannula 2.0 03/11/17 04:00 37.0 81 19 117/66 100 Nasal Cannula 2.0 03/11/17 03:01 77 22 114/49 96 Nasal Cannula 2.0 03/11/17 02:00 83 23 113/67 95 Nasal Cannula 2.0 03/11/17 01:00 87 19 128/88 98 Nasal Cannula 2.0 03/11/17 00:09 36.9 87 19 111/63 95 2.0 03/11/17 00:00 Nasal Cannula 2.0 03/10/17 23:01 89 35 109/71 95 Nasal Cannula 2.0 03/10/17 22:00 88 40 114/77 96 Nasal Cannula 2.0 03/10/17 21:00 94 24 123/77 95 Nasal Cannula 2.0 03/10/17 20:10 109 19 110/72 98 Nasal Cannula 2.0 03/10/17 20:01 106 21 87/60 97 Nasal Cannula 2.0 03/10/17 20:00 Nasal Cannula 2.0 03/10/17 20:00 37.3 110 17 97 Nasal Cannula 2.0 03/10/17 17:23 39.0 114 26 93 2.0 03/10/17 16:32 93 Nasal Cannula 2.0 03/10/17 16:14 Nasal Cannula 2.0 03/10/17 15:58 39.0 114 26 98/66 92 Nasal Cannula 2.0 Lab Results: Results Past 24 Hours Test 03/10/17 16:00 03/10/17 17:00 03/10/17 19:50 03/11/17 05:03 Range/Units Urine Opiates Screen NEG NEG Urine Methadone, Qualitative NEG NEG Urine Barbiturates NEG NEG Urine Phencyclidine (PCP) Level NEG NEG Ur Amphetamine/Methamphetamine NEG NEG MDMA (Ecstasy) Screen NEG NEG Urine Benzodiazepines Screen NEG NEG Urine Cocaine Metabolite NEG NEG Urine Marijuana (THC) NEG NEG Influenza Type A (RT-PCR) Neg for Influ A NEG Influenza Type B (RT-PCR) Neg for Influ B NEG Lactic Acid Level 1.4 1.1 0.4-2.0 mmol/L White Blood Count 12.86 4.8-10.8 K/uL Red Blood Count 4.57 4.2-5.4 M/uL Hemoglobin 14.5 12.0-16.0 g/dL Hematocrit 42.8 37-47 % Mean Corpuscular Volume 93.7 80-100 fL Mean Corpuscular Hemoglobin 31.7 25-34 pg Mean Corpuscular Hemoglobin Concent 33.9 32-36 g/dl Platelet Count 304 130-400 K/uL Mean Platelet Volume 9.4 7.4-10.4 fL Neutrophils (%) (Auto) 67.8 % Lymphocytes (%) (Auto) 11.9 % Monocytes (%) (Auto) 8.9 % Eosinophils (%) (Auto) 10.7 % Basophils (%) (Auto) 0.2 % Neutrophils # (Auto) 8.73 1.4-6.5 K/uL Lymphocytes # (Auto) 1.53 1.2-3.4 K/uL Monocytes # (Auto) 1.14 0.11-0.59 K/uL Eosinophils # (Auto) 1.38 0-0.5 K/uL Basophils # (Auto) 0.02 0-0.2 K/uL RDW Standard Deviation 45.3 36.4-46.3 fL RDW Coefficient of Variation 13.2 11.5-14.5 % Immature Granulocyte % (Auto) 0.5 % Immature Granulocyte # (Auto) 0.06 0.00-0.02 K/uL Red Blood Cell Morphology Unremarkable Sodium Level 143 136-145 mmol/L Potassium Level 3.4 3.5-5.1 mmol/L Chloride Level 111 98-107 mmol/L Carbon Dioxide Level 23 21-32 mmol/L Anion Gap 9.0 3-11 mmol/L Blood Urea Nitrogen 18 7-18 mg/dl Creatinine 0.94 0.60-1.20 mg/dl Est Creatinine Clear Calc Drug Dose 80.0 ml/min Estimated GFR () 82.6 Estimated GFR (Non- 71.2 BUN/Creatinine Ratio 18.9 10-20 Random Glucose 109 70-99 mg/dl Calcium Level 7.3 8.5-10.1 mg/dl Phosphorus Level 4.5 2.5-4.9 mg/dl Magnesium Level 2.4 1.8-2.4 mg/dl Total Bilirubin 0.3 0.2-1 mg/dl Direct Bilirubin < 0.1 0-0.2 mg/dl Aspartate Amino Transf (AST/SGOT) 114 15-37 U/L Alanine Aminotransferase (ALT/SGPT) 215 12-78 U/L Alkaline Phosphatase 135 45-117 U/L Total Protein 5.4 6.4-8.2 gm/dl Albumin 2.7 3.4-5.0 gm/dl Triglycerides Level 137 0-150 mg/dl Cholesterol Level 122 0-200 mg/dl HDL Cholesterol 30 mg/dl LDL Cholesterol, Calculated 65 mg/dl VLDL Cholesterol, Calculated 27 mg/dl Cholesterol/HDL Ratio 4.1 Lipase 573 73-393 U/L Microbiology Results 03/10/17 Blood Culture, Received Pending 03/10/17 Blood Culture, Received Pending 03/10/17 MRSA DNA Surveillance Screen - Final, Complete Specimen Negative for MRSA by DNA Probe 03/10/17 C.difficile Toxin B Gene (PCR) - Final, Complete No C. difficile toxin B gene detected 03/10/17 WBC Smear - Final, Resulted 03/10/17 Shiga Toxin Test - Preliminary, Resulted No E. Coli shiga toxin 1 or shiga tox... 03/10/17 Stool Culture - Preliminary, Resulted NO SALMONELLA ISOLATED TO DATE,...
[2017-03-11] MEDS: NAPHAZOLIN/PHENIRAMIN OPH SOLN 75 DROPS/5 ML BTL OPR PRN (18:25)
[2017-03-11] MEDS: IBUPROFEN 200 MG TAB PO PRN (20:06)
[2017-03-11] MEDS ORDERED: METOPROLOL TARTRATE 25 MG TAB PO SCH (21:00)
[2017-03-11] MEDS: FLUTICASONE PROPIONATE NA SPR 16 GM BTL SCH (21:49)
[2017-03-11] MEDS: ENOXAPARIN 40 MG/0.4 ML SYR SC SCH (21:51)
[2017-03-11] MEDS ORDERED: LIDOCAINE HCL 2% JELLY 30 ML TUBE EXT STA (22:15)
[2017-03-11] MEDS ORDERED: LOPERAMIDE HCL 2 MG CAP PO PRN (23:30)
[2017-03-11] MEDS: LOPERAMIDE HCL 2 MG CAP PO PRN (23:43)
[2017-03-12] VITALS (10 sets, daily range): BP systolic 109–146; BP diastolic 73–106; PULSE 67–85; TEMP 35–37.1; O2SAT 93–98
[2017-03-12] MEDS: SODIUM CHLORIDE 0.45% 1000ML 1,000 ML IV SCH ×3 (02:52→20:18)
[2017-03-12] MEDS: GABAPENTIN 600MG Q8H DOSE PO SCH (05:46)
[2017-03-12] MEDS: LOPERAMIDE HCL 2 MG CAP PO PRN ×2 (05:49→13:15)
[2017-03-12 06:05] LABS: HEMATOCRIT 42.4 % (37-47); MEAN CORPUSCULAR HEMOGLOBIN 32.2 pg (25-34); MEAN CORPUSCULAR HGB CONC 34.2 g/dl (32-36); MEAN PLATELET VOLUME 9.3 fL (7.4-10.4); PLATELET COUNT 254 K/uL (130-400); RED BLOOD COUNT 4.51 M/uL (4.2-5.4); WHITE BLOOD COUNT 14.31 K/uL (4.8-10.8)
[2017-03-12 06:34] LABS: COMPLETE YES; EOSINOPHIL % 14.7 %; LYMPH ABS # 2.96 K/uL (1.2-3.4); LYMPHOCYTE % 20.7 %; META ABS # 0.13 K/uL (0-0); METAMYELOCYTE % 0.9 %; MYELOCYTE % 1.7 %
[2017-03-12 06:36] LABS: CALCIUM 7.4 mg/dl (8.5-10.1); CREATININE 0.75 mg/dl (0.60-1.20); MAGNESIUM 2.2 mg/dl (1.8-2.4); POTASSIUM 3.6 mmol/L (3.5-5.1)
[2017-03-12 06:40] LABS: PHOSPHORUS 1.7 mg/dl (2.5-4.9)
[2017-03-12] MEDS: THIAMINE HCL 100 MG TAB PO SCH (08:19)
[2017-03-12] MEDS: METOPROLOL SUCC 25MG EXT REL TAB PO SCH (08:19)
[2017-03-12] MEDS: CEROVITE ADV FORMULA TAB PO SCH (08:20)
[2017-03-12] MEDS: FLUTICASONE PROPIONATE NA SPR 16 GM BTL SCH ×2 (08:26→20:18)
[2017-03-12] MEDS: LORAZEPAM 0.5 MG TAB PO PRN ×3 (08:26→23:27)
[2017-03-12] MEDS ORDERED: PANTOprazole SOD 40 MG TAB PO SCH (09:00)
--- NOTE | 2017-03-12 09:41 | Gastroenterology Progress Note ---
Progress Note Date of Service: Mar 12, 2017 Subjective Pt evaluation today including: conversation w/ patient, physical exam, chart review, lab review, review of inpatient medication list Pt denies any abd pain, n/v, asking for more solid foods. Still has rectal tube in place, receiving Imodium Review of Systems Constitutional: No chills, No fever Respiratory: No cough, No shortness of breath Cardiac: No chest pain Abdomen: + diarrhea, No nausea, No pain, No vomiting Medications Current Inpatient Medications Medications (Trade) Dose Ordered Sig/Raheem Route Start Time Stop Time Status Last Admin Dose Admin Ioversol (Optiray 320) 100 ml UD PRN IV 03/10/17 12:45 03/14/17 12:44 Enoxaparin Sodium (Lovenox Inj) 40 mg Q24H SC 03/10/17 21:00 04/09/17 20:59 03/11/17 21:51 40 MG Ondansetron HCl (Zofran Inj) 4 mg Q6H PRN IV 03/10/17 14:45 04/09/17 14:44 Albuterol (Ventolin Hfa Inhaler) 2 puffs Q4H PRN INH 03/10/17 15:00 04/09/17 14:59 Lorazepam SEE PROTOCOL UD PRN PO 03/10/17 15:15 04/09/17 15:14 Pantoprazole Sodium/Syringe (Protonix Inj/ Syringe) 10 ml @ 5 mls/min DAILY@09,21 IV 03/10/17 21:00 04/09/17 20:59 03/11/17 22:23 5 MLS/MIN Gabapentin (Neurontin Tab) 600 mg Q12H PO 03/12/17 18:00 03/13/17 06:01 Gabapentin (Neurontin Tab) 600 mg Q24H PO 03/14/17 06:00 03/14/17 06:01 Metoprolol Tartrate (Lopressor Iv) 5 mg Q6 PRN IV 03/10/17 19:00 04/09/17 18:59 Naphazoline HCl/ Pheniramine Maleate 2 drops 2 drops Q6H PRN OPR 03/10/17 19:00 04/09/17 18:59 03/11/17 18:25 2 DROPS Sodium Chloride (1/2 Nss 1000ml) 1,000 ml @ 150 mls/hr Q6H40M IV 03/11/17 14:00 04/10/17 13:59 03/12/17 08:32 150 MLS/HR Loperamide HCl (Imodium Cap) 2 mg Q6H PRN PO 03/11/17 09:30 04/10/17 09:29 03/12/17 05:49 2 MG Pantoprazole Sodium (Protonix Tab) 40 mg QAM PO 03/12/17 09:00 04/11/17 08:59 03/12/17 08:18 40 MG Metoprolol Succinate (Toprol Xl Tab) 25 mg QAM PO 03/12/17 09:00 04/11/17 08:59 03/12/17 08:19 25 MG Multivitamins/ Minerals (Multivitamin W/ Minerals Tab) 1 tab QAM PO 03/12/17 09:00 04/11/17 08:59 03/12/17 08:20 1 TAB Thiamine HCl (Vitamin B-1 Tab) 100 mg QAM PO 03/12/17 09:00 04/11/17 08:59 03/12/17 08:19 100 MG Folic Acid (Folvite Tab) 1 mg QAM PO 03/12/17 09:00 04/11/17 08:59 03/12/17 08:19 1 MG Diphenhydramine HCl (Benadryl Cap) 25 mg HS PO 03/11/17 21:00 04/10/17 20:59 03/11/17 21:50 25 MG Fluticasone Propionate (Flonase Nasal [place]) 2 sprays BID NA 03/11/17 21:00 04/10/17 20:59 03/12/17 08:26 2 SPRAYS Venlafaxine HCl (effeXOR EXTENDED REL CAP) 150 mg DAILY PO 03/12/17 09:00 04/11/17 08:59 Lorazepam (Ativan Tab) 0.5 mg Q8H PRN PO 03/11/17 13:00 04/10/17 12:59 03/12/17 08:26 0.5 MG Ibuprofen (Advil Tab) 400 mg QID PRN PO 03/11/17 19:15 04/10/17 19:14 03/11/17 20:06 400 MG Loperamide HCl (Imodium Cap) 2 mg UD PRN PO 03/11/17 23:30 04/10/17 23:29 Objective Vital Signs Date Time Temp Pulse Resp B/P Pulse Ox O2 Delivery O2 Flow Rate FiO2 03/12/17 08:15 36.7 77 22 146/106 93 Room Air 03/12/17 04:02 36.5 69 18 109/75 93 Room Air 03/12/17 04:00 Room Air 03/12/17 00:00 36.8 67 16 126/73 94 Room Air 03/11/17 23:59 Room Air 03/11/17 20:00 Room Air 03/11/17 19:30 36.8 80 20 140/92 98 Room Air 03/11/17 17:21 37.0 77 24 94 2.0 03/11/17 16:00 Room Air 03/11/17 16:00 37.0 77 24 117/86 94 03/11/17 14:00 80 16 129/71 96 Room Air 03/11/17 12:00 36.8 78 16 140/90 99 Room Air 03/11/17 12:00 Room Air 03/11/17 10:00 73 16 116/79 97 Room Air Physical Exam General Appearance: WD/WN, no apparent distress Eyes: normal inspection, PERRL, EOMI Neck: supple, no JVD, trachea midline Respiratory/Chest: normal breath sounds, no respiratory distress, no accessory muscle use Cardiovascular: regular rate, rhythm, no gallop, no murmur Abdomen: normal bowel sounds, non tender, soft, + pertinent finding (Liquid stool in rectal tube bag) Extremities: normal inspection, no pedal edema, no calf tenderness Neurologic/Psych: alert, normal mood/affect, oriented x 3 Skin: normal color, no jaundice, no rash Laboratory Results Last 24 Hours Test 03/12/17 05:44 White Blood Count 14.31 K/uL Red Blood Count 4.51 M/uL Hemoglobin 14.5 g/dL Hematocrit 42.4 % Mean Corpuscular Volume 94.0 fL Mean Corpuscular Hemoglobin 32.2 pg Mean Corpuscular Hemoglobin Concent 34.2 g/dl Platelet Count 254 K/uL Mean Platelet Volume 9.3 fL RDW Standard Deviation 45.4 fL RDW Coefficient of Variation 13.2 % Neutrophils % (Manual) 56.0 % Lymphocytes % (Manual) 20.7 % Monocytes % (Manual) 6.0 % Eosinophils % (Manual) 14.7 % Metamyelocytes % 0.9 % Myelocytes % 1.7 % Neutrophils # (Manual) 8.01 K/uL Total Absolute Neutrophils 8.01 K/uL Lymphocytes # (Manual) 2.96 K/uL Total Absolute Lymphocytes 2.96 K/uL Monocytes # (Manual) 0.86 K/uL Eosinophils # (Manual) 2.10 K/uL Metamyelocytes # 0.13 K/uL Myelocytes # 0.24 K/uL Red Blood Cell Morphology Unremarkable Sodium Level 142 mmol/L Potassium Level 3.6 mmol/L Chloride Level 111 mmol/L Carbon Dioxide Level 24 mmol/L Anion Gap 7.0 mmol/L Blood Urea Nitrogen 8 mg/dl Creatinine 0.75 mg/dl Est Creatinine Clear Calc Drug Dose 101.4 ml/min Estimated GFR () 108.5 Estimated GFR (Non- 93.6 BUN/Creatinine Ratio 10.0 Random Glucose 96 mg/dl Calcium Level 7.4 mg/dl Phosphorus Level 1.7 mg/dl Magnesium Level 2.2 mg/dl Total Bilirubin 0.3 mg/dl Aspartate Amino Transf (AST/SGOT) 23 U/L Alanine Aminotransferase (ALT/SGPT) 123 U/L Alkaline Phosphatase 110 U/L Total Protein 5.5 gm/dl Albumin 2.7 gm/dl Globulin 2.8 gm/dl Albumin/Globulin Ratio 1.0 Lipase 98 U/L Assessment and Plan Patient is a 51 year old female admitted for swollen eye lids (suspected allergies), diarrhea and ETOH pancreatitis. Lipase normalized, no abd pain, n/v. Still having liquid stools, rectal tube in place. Stool studies negative. Plans - Protonix 40mg PO BID - FL diet today; may advance to low fat diet tomorrow if tolerating well - Decreased IVF rate to 100ml/hr - DT protocol - ETOH cessation; recommend psych eval for inpt rehab. - Imodium as prescribed, monitor diarrhea. - Will watch peripherally, call if new questions or concerns arise. I have personally seen and examined the patient with TOMER Wallis. Her note reflects my exam and findings. I agree with her impression and plan. Stools improving. Tolerating diet without any abdominal pain. Speedy Durant M.D.
[2017-03-12] MEDS: VENLAFAXINE HCL XR 75 MG CAPXR PO SCH (10:29)
[2017-03-12] MEDS ORDERED: POTASSIUM PHOS 3 MMOL/1 ML INFUSION IV STA (11:06)
--- NOTE | 2017-03-12 11:31 | Progress Note ---
Internal Med Progress Note Date of Service: Mar 12, 2017. Provider Documentation: SUBJECTIVE: Patient is doing much better today. Epigastric pain has resolved. Diarrhea + in rectal tube- watery, loose No nausea, vomiting, fever, chills, No tremors OBJECTIVE: Vital Signs-as noted below Exam: General-AAOX3, no distress Eyes-No icterus Neck- Supple, No JVD Lungs-AEBE, no wheezing, crackles Heart-S1, S2 normal, no murmurs Abdomen-Soft, non tender, non distended, BS present Extremities-No edema Neuro-No focal deficits Lab data as noted below. ASSESSMENT & PLAN: ACUTE PANCREATITIS, Likely alcoholic - Improving Hx prior pancreatitis in 2008; was post cholecystectomy at that time; had unremarkable MRCP Work up- CT abdomen/pelvis - Mild peripancreatic inflammatory change c/w acute pancreatitis. ? mild inflammatory change surrounding the terminal ileum and ascending colon. This may represent a low-grade enterocolitis. There is an associated fluid-filled colon; cholecystectomy; hepatic steatosis; a few prominent left thoracic periaortic and mesenteric lymph nodes; IUD in good position -Clinically improved, epigastric pain has resolved, Lipase trending down & now normal -IV fluids-decrease rate to 100 cc/hour. Advance to full liquid per GI -Pain mx- not requiring pain meds -Work up- Lipase >24K --> 573-->98 ,LFTs slightly elevated- trending down, likely secondary to alcohol abuse. ALCOHOL WITHDRAWAL Hx Etoh abuse, was sober approx 2 years then relapsed 2 wks ago; drinking 1 bottle wine daily; last drink 03/09 night Improving with PRN IV Ativan -No signs /symptoms of DTs -IV Ativan and gabapentin per withdrawal protocol -IV fluids -Thiamine, MV, Folic acid PO -Hold natrexone DIARRHEA -Likely associated with above -C diff, stool studies negative -Monitor. Continue with IVF DEPRESSION : Recently taken off Lexapro and Elavil approx 12 weeks ago due to sleep study results Recent suicidal ideation; denies suicidal ideation currently -Continue Effexor- Increased to 150 mg daily per Psych -Appreciate psych inputs ALLERGIC CONJUNCTIVITIS Ophthalmology contacted by ER physician - Ordered Naphcon drops which were recommended by ophthalmology HISTORY OF PSVT -Stable, NSR -Continue metoprolol succinate ASTHMA Not in acute exacerbation -Continue PRN albuterol inhaler DYSLIPIDEMIA -Hold statin for now DVT PROPHYLAXIS -Lovenox SQ DISPOSITION Okay to transfer to med/surg today. Follows w/ Dr. Alan for primary care Vital Signs: Date Time Temp Pulse Resp B/P Pulse Ox O2 Delivery O2 Flow Rate FiO2 03/12/17 08:15 36.7 77 22 146/106 93 Room Air 03/12/17 07:40 Room Air 03/12/17 04:02 36.5 69 18 109/75 93 Room Air 03/12/17 04:00 Room Air 03/12/17 00:00 36.8 67 16 126/73 94 Room Air 03/11/17 23:59 Room Air 03/11/17 20:00 Room Air 03/11/17 19:30 36.8 80 20 140/92 98 Room Air 03/11/17 17:21 37.0 77 24 94 2.0 03/11/17 16:00 Room Air 03/11/17 16:00 37.0 77 24 117/86 94 03/11/17 14:00 80 16 129/71 96 Room Air 03/11/17 12:00 36.8 78 16 140/90 99 Room Air 03/11/17 12:00 Room Air Lab Results: Results Past 24 Hours Test 03/12/17 05:44 Range/Units White Blood Count 14.31 4.8-10.8 K/uL Red Blood Count 4.51 4.2-5.4 M/uL Hemoglobin 14.5 12.0-16.0 g/dL Hematocrit 42.4 37-47 % Mean Corpuscular Volume 94.0 80-100 fL Mean Corpuscular Hemoglobin 32.2 25-34 pg Mean Corpuscular Hemoglobin Concent 34.2 32-36 g/dl Platelet Count 254 130-400 K/uL Mean Platelet Volume 9.3 7.4-10.4 fL RDW Standard Deviation 45.4 36.4-46.3 fL RDW Coefficient of Variation 13.2 11.5-14.5 % Neutrophils % (Manual) 56.0 % Lymphocytes % (Manual) 20.7 % Monocytes % (Manual) 6.0 % Eosinophils % (Manual) 14.7 % Metamyelocytes % 0.9 % Myelocytes % 1.7 % Neutrophils # (Manual) 8.01 1.4-6.5 K/uL Total Absolute Neutrophils 8.01 1.4-6.5 K/uL Lymphocytes # (Manual) 2.96 1.2-3.4 K/uL Total Absolute Lymphocytes 2.96 1.2-3.4 K/uL Monocytes # (Manual) 0.86 0.11-0.59 K/uL Eosinophils # (Manual) 2.10 0-0.5 K/uL Metamyelocytes # 0.13 0-0 K/uL Myelocytes # 0.24 0-0 K/uL Red Blood Cell Morphology Unremarkable Sodium Level 142 136-145 mmol/L Potassium Level 3.6 3.5-5.1 mmol/L Chloride Level 111 98-107 mmol/L Carbon Dioxide Level 24 21-32 mmol/L Anion Gap 7.0 3-11 mmol/L Blood Urea Nitrogen 8 7-18 mg/dl Creatinine 0.75 0.60-1.20 mg/dl Est Creatinine Clear Calc Drug Dose 101.4 ml/min Estimated GFR () 108.5 Estimated GFR (Non- 93.6 BUN/Creatinine Ratio 10.0 10-20 Random Glucose 96 70-99 mg/dl Calcium Level 7.4 8.5-10.1 mg/dl Phosphorus Level 1.7 2.5-4.9 mg/dl Magnesium Level 2.2 1.8-2.4 mg/dl Total Bilirubin 0.3 0.2-1 mg/dl Aspartate Amino Transf (AST/SGOT) 23 15-37 U/L Alanine Aminotransferase (ALT/SGPT) 123 12-78 U/L Alkaline Phosphatase 110 45-117 U/L Total Protein 5.5 6.4-8.2 gm/dl Albumin 2.7 3.4-5.0 gm/dl Globulin 2.8 2.5-4.0 gm/dl Albumin/Globulin Ratio 1.0 0.9-2 Lipase 98 73-393 U/L
[2017-03-12] MEDS: NAPHAZOLIN/PHENIRAMIN OPH SOLN 75 DROPS/5 ML BTL OPR PRN (11:43)
[2017-03-12] MEDS ORDERED: POTASSIUM PHOSPHATE INJ 15 MMOL in SODIUM CHLORIDE 0.9% 250ML 250 ML IV SCH (12:00)
[2017-03-12] MEDS: GABAPENTIN 600MG Q12H DOSE PO SCH (16:58)
[2017-03-12] MEDS: PANTOprazole SOD 40 MG TAB PO SCH (20:00)
[2017-03-12] MEDS: ENOXAPARIN 40 MG/0.4 ML SYR SC SCH (20:18)
[2017-03-12] MEDS ORDERED: ALBUT/IPRATROP 3MG/0.5MG NEB 3 ML VIAL INH PRN (20:45)
[2017-03-12] MEDS ORDERED: ALBUT/IPRATROP 3MG/0.5MG NEB 3 ML VIAL INH ONE (20:50)
--- NOTE | 2017-03-12 21:17 | DIAGNOSTIC IMAGING REPORT ---
CHEST ONE VIEW PORTABLE HISTORY: wheeze COMPARISON: Chest 12/28/2014. FINDINGS: No pneumothorax. No pleural effusions. The heart is borderline enlarged. Perihilar interstitial and pressure thickening has progressed. Dilatation of the azygos vein. Density at the left lung base. IMPRESSION: Borderline enlargement of the cardiac silhouette with progression of the interstitial and vascular thickening. This is consistent with mild pulmonary edema. Left basilar densities may represent progression of the pulmonary edema versus a developing pneumonia. Recommend follow-up to ensure resolution. Electronically signed by: Abner Frost M.D. 03/12/2017 9:15 PM Dictated Date/Time: 03/12/2017 9:13 PM
[2017-03-12] MEDS ORDERED: FUROSEMIDE 20 MG TAB PO ONE (23:00)
[2017-03-13] VITALS: O2SAT 96
[2017-03-13] MEDS: GABAPENTIN 600MG Q12H DOSE PO SCH (06:20)
[2017-03-13 07:03] VITALS: BP 122/78; PULSE 73; TEMP 36.5; O2SAT 95
[2017-03-13] MEDS: VENLAFAXINE HCL XR 75 MG CAPXR PO SCH (09:00)
[2017-03-13] MEDS: FLUTICASONE PROPIONATE NA SPR 16 GM BTL SCH ×2 (09:00→20:16)
[2017-03-13] MEDS: CEROVITE ADV FORMULA TAB PO SCH (09:01)
[2017-03-13] MEDS: PANTOprazole SOD 40 MG TAB PO SCH ×2 (09:02→20:16)
[2017-03-13] MEDS: LOPERAMIDE HCL 2 MG CAP PO PRN ×2 (09:03→22:36)
[2017-03-13] MEDS: METOPROLOL SUCC 25MG EXT REL TAB PO SCH (09:03)
[2017-03-13] MEDS: THIAMINE HCL 100 MG TAB PO SCH (09:03)
[2017-03-13 10:00] VITALS: O2SAT 95
[2017-03-13 10:55] LABS: HEMATOCRIT 41.2 % (37-47); MEAN CELL VOLUME 91.6 fL (80-100); MEAN CORPUSCULAR HEMOGLOBIN 31.1 pg (25-34); MEAN PLATELET VOLUME 9.3 fL (7.4-10.4); PLATELET COUNT 284 K/uL (130-400); WHITE BLOOD COUNT 16.63 K/uL (4.8-10.8)
[2017-03-13 11:32] LABS: BUN/CREATININE RATIO 3.4 (10-20); CALCIUM 8.1 mg/dl (8.5-10.1); CREATININE 0.78 mg/dl (0.60-1.20); POTASSIUM 3.2 mmol/L (3.5-5.1)
[2017-03-13] MEDS ORDERED: POTASSIUM CHLORIDE 20 MEQ TABCR PO SCH (12:00)
[2017-03-13] MEDS ORDERED: POTASSIUM PHOS 3 MMOL/1 ML INFUSION IV STA (12:44)
--- NOTE | 2017-03-13 12:52 | Progress Note ---
Internal Med Progress Note Date of Service: Mar 13, 2017. Provider Documentation: SUBJECTIVE: Patient did have a bout of wheezing for which CXR was done which showed possible mild pulmonary vascular congestion vs pneumonia Received a dose of PO lasix x 1 dose. Denies any new cough, sob, chest pain. Epigastric pain has resolved. Loose stools, but improved frequency and consistency No nausea, vomiting, fever, chills, No tremors Tolerating low fat diet well Ambulating well Eager to be discharged OBJECTIVE: Vital Signs-as noted below Exam: General-AAOX3, no distress Eyes-No icterus Neck- Supple, No JVD Lungs-AEBE, no wheezing, crackles Heart-S1, S2 normal, no murmurs Abdomen-Soft, non tender, non distended, BS present Extremities-No edema Neuro-No focal deficits Lab data as noted below. ASSESSMENT & PLAN: WHEEZING Had a CXR done yesterday night by night physician for wheezing--> mild pulmonary congestion vs pneumonia -No new cough, chest pain, SOB, ambulating well, but worsening leucocytosis. On my exam today- no wheezing, crackles -Recommends repeat CXR in AM. Will do so. HYPOKALEMIA/HYPOPHOSPHATEMIA -Replace -Monitor ACUTE PANCREATITIS, Likely alcoholic - Resolving Hx prior pancreatitis in 2008; was post cholecystectomy at that time; had unremarkable MRCP Work up- CT abdomen/pelvis - Mild peripancreatic inflammatory change c/w acute pancreatitis. ? mild inflammatory change surrounding the terminal ileum and ascending colon. This may represent a low-grade enterocolitis. There is an associated fluid-filled colon; cholecystectomy; hepatic steatosis; a few prominent left thoracic periaortic and mesenteric lymph nodes; IUD in good position -Clinically improved, epigastric pain has resolved, Lipase trending down & now normal -S/P IVF- discontinue. Tolerating PO well. -Pain mx- not requiring pain meds -Work up- Lipase >24K --> 573-->98 ,LFTs slightly elevated- trending down, likely secondary to alcohol abuse. ALCOHOL WITHDRAWAL Hx Etoh abuse, was sober approx 2 years then relapsed 2 wks ago; drinking 1 bottle wine daily; last drink 03/09 night -No signs /symptoms of DTs; Stable -IV Ativan and gabapentin per withdrawal protocol -IV fluids- discontinued -Thiamine, MV, Folic acid PO -Hold natrexone DIARRHEA- Improved, but still frequency is high -Likely associated with above -C diff, stool studies negative -Imodium PRN, will add lomotil too DEPRESSION : Recently taken off Lexapro and Elavil approx 12 weeks ago due to sleep study results Recent suicidal ideation; denies suicidal ideation currently -Continue Effexor- Increased to 150 mg daily per Psych -Appreciate psych inputs ALLERGIC CONJUNCTIVITIS Ophthalmology contacted by ER physician - Ordered Naphcon drops which were recommended by ophthalmology HISTORY OF PSVT -Stable, NSR -Continue metoprolol succinate ASTHMA Not in acute exacerbation -Continue PRN albuterol inhaler DYSLIPIDEMIA -Hold statin for now DVT PROPHYLAXIS -Lovenox SQ DISPOSITION Okay to transfer to med/surg today. Follows w/ Dr. Alan for primary care Vital Signs: Date Time Temp Pulse Resp B/P Pulse Ox O2 Delivery O2 Flow Rate FiO2 03/13/17 10:00 95 Room Air 03/13/17 07:03 36.5 73 20 122/78 95 Room Air 03/13/17 00:00 96 Room Air 03/12/17 23:09 37.1 80 18 126/80 94 Room Air 03/12/17 20:58 85 14 97 Room Air 03/12/17 20:00 96 Room Air 03/12/17 15:08 36.9 82 20 113/73 96 Room Air 03/12/17 15:00 98 Room Air 03/12/17 13:23 36.7 77 16 98 Lab Results: Results Past 24 Hours Test 03/13/17 10:25 Range/Units White Blood Count 16.63 4.8-10.8 K/uL Red Blood Count 4.50 4.2-5.4 M/uL Hemoglobin 14.0 12.0-16.0 g/dL Hematocrit 41.2 37-47 % Mean Corpuscular Volume 91.6 80-100 fL Mean Corpuscular Hemoglobin 31.1 25-34 pg Mean Corpuscular Hemoglobin Concent 34.0 32-36 g/dl RDW Standard Deviation 43.6 36.4-46.3 fL RDW Coefficient of Variation 13.0 11.5-14.5 % Platelet Count 284 130-400 K/uL Mean Platelet Volume 9.3 7.4-10.4 fL Sodium Level 143 136-145 mmol/L Potassium Level 3.2 3.5-5.1 mmol/L Chloride Level 106 98-107 mmol/L Carbon Dioxide Level 27 21-32 mmol/L Anion Gap 10.0 3-11 mmol/L Blood Urea Nitrogen 3 7-18 mg/dl Creatinine 0.78 0.60-1.20 mg/dl Est Creatinine Clear Calc Drug Dose 99.4 ml/min Estimated GFR () 103.5 Estimated GFR (Non- 89.3 BUN/Creatinine Ratio 3.4 10-20 Random Glucose 113 70-99 mg/dl Calcium Level 8.1 8.5-10.1 mg/dl Phosphorus Level 2.2 2.5-4.9 mg/dl Total Bilirubin 0.7 0.2-1 mg/dl Aspartate Amino Transf (AST/SGOT) 27 15-37 U/L Alanine Aminotransferase (ALT/SGPT) 96 12-78 U/L Alkaline Phosphatase 168 45-117 U/L Total Protein 6.0 6.4-8.2 gm/dl Albumin 3.0 3.4-5.0 gm/dl Globulin 3.0 2.5-4.0 gm/dl Albumin/Globulin Ratio 1.0 0.9-2
[2017-03-13] MEDS ORDERED: NURSING VERBAL MED ORDER ONE (13:00)
[2017-03-13] MEDS ORDERED: DIPHENOXYLATE/ATROPINE 2.5/0.025MG TAB PO PRN (13:00)
[2017-03-13] MEDS ORDERED: POTASSIUM PHOSPHATE INJ 15 MMOL in SODIUM CHLORIDE 0.9% 250ML 250 ML IV SCH (13:15)
[2017-03-13] MEDS: LORAZEPAM 0.5 MG TAB PO PRN ×2 (13:40→21:40)
[2017-03-13 14:48] VITALS: BP 124/79; PULSE 63; TEMP 37; O2SAT 95
[2017-03-13] MEDS: ENOXAPARIN 40 MG/0.4 ML SYR SC SCH (20:17)
[2017-03-14 00:06] VITALS: BP 137/86; PULSE 74; TEMP 36.6; O2SAT 92
[2017-03-14] MEDS: LOPERAMIDE HCL 2 MG CAP PO PRN (05:42)
[2017-03-14] MEDS: LORAZEPAM 0.5 MG TAB PO PRN (05:42)
[2017-03-14] MEDS ORDERED: GABAPENTIN 600MG X1 DOSE PO SCH (06:00)
[2017-03-14 07:30] VITALS: BP 135/92; PULSE 70; TEMP 36.5; O2SAT 98
[2017-03-14 08:06] LABS: HEMATOCRIT 39.7 % (37-47); MEAN CELL VOLUME 92.1 fL (80-100); MEAN CORPUSCULAR HGB CONC 34.8 g/dl (32-36); MEAN PLATELET VOLUME 9.3 fL (7.4-10.4); PLATELET COUNT 245 K/uL (130-400); RED BLOOD COUNT 4.31 M/uL (4.2-5.4)
[2017-03-14 08:36] LABS: BUN/CREATININE RATIO 7.9 (10-20); CREATININE 0.7 mg/dl (0.60-1.20); POTASSIUM 3.4 mmol/L (3.5-5.1)
[2017-03-14 08:39] LABS: ALB/GLOB RATIO 0.9 (0.9-2); PHOSPHORUS 2.6 mg/dl (2.5-4.9)
[2017-03-14] MEDS: CEROVITE ADV FORMULA TAB PO SCH (08:52)
[2017-03-14] MEDS: FLUTICASONE PROPIONATE NA SPR 16 GM BTL SCH (08:52)
[2017-03-14 08:53] LABS: CALCIUM 8.4 mg/dl (8.5-10.1)
[2017-03-14] MEDS: VENLAFAXINE HCL XR 75 MG CAPXR PO SCH (08:53)
[2017-03-14] MEDS: THIAMINE HCL 100 MG TAB PO SCH (08:53)
[2017-03-14] MEDS: PANTOprazole SOD 40 MG TAB PO SCH (08:53)
[2017-03-14] MEDS: METOPROLOL SUCC 25MG EXT REL TAB PO SCH (08:54)
--- NOTE | 2017-03-14 10:39 | DIAGNOSTIC IMAGING REPORT ---
CHEST 2 VIEWS ROUTINE CLINICAL HISTORY: Annual chest x-ray. Follow-up study. COMPARISON STUDY: 03/12/2017 FINDINGS: The cardiac and mediastinal contours remain stable. There is no overt failure. There is mild basilar interstitial thickening. There are persistent but improving left basilar airspace opacities. Continued radiographic follow-up is recommended.[ IMPRESSION: Persistent but improving left basilar airspace opacities. Continued radiographic follow-up is recommended. Electronically signed by: Chico Emanuel M.D. 03/14/2017 10:36 AM Dictated Date/Time: 03/14/2017 10:35 AM
[2017-03-14] MEDS ORDERED: POTASSIUM CHLORIDE 10 MEQ TABCR PO STA (11:40)
--- NOTE | 2017-03-14 12:09 | Progress Note ---
Internal Med Progress Note Date of Service: Mar 14, 2017. Provider Documentation: SUBJECTIVE: Patient is doing well- ambulating in hallway without any issues. Eager to be discharged. Denies any new cough, sob, chest pain, nausea, vomiting. Epigastric pain has resolved. Diarrhea has improved in frequency/Consistency. Tolerating low fat diet well Ambulating well OBJECTIVE: Vital Signs-as noted below Exam: General-AAOX3, no distress Eyes-No icterus Neck- Supple, No JVD Lungs-AEBE, no wheezing, crackles Heart-S1, S2 normal, no murmurs Abdomen-Soft, non tender, non distended, BS present Extremities-No edema Neuro-No focal deficits Lab data as noted below. ASSESSMENT & PLAN: EPISODE OF WHEEZING- Resolved Had a CXR done on 03/13/17 night by night physician for wheezing--> mild pulmonary congestion vs pneumonia -No new cough, chest pain, SOB, ambulating well, but worsening leucocytosis. On my exam today- no wheezing, crackles -CXR repeated today- improving left base opacities, recommends follow up. WORSENING LEUCOCYTOSIS WBC count has been trending up 16k-->19k. No new signs of infection. Pancreatitis symptoms have resolved, diarrhea is improving in frequency/consistency -Lipase normalized, C diff negative, Stool studies negative, CXR- some congestion vs left base opacities---> improved today. No clinical signs of pneumonia. -Offered to monitor trend while in hospital, but prefers to be discharged and outpatient follow up. -Need to follow up outpatient during next office visit HYPOKALEMIA/HYPOPHOSPHATEMIA -Replaced ACUTE PANCREATITIS, Likely alcoholic - Resolved Hx prior pancreatitis in 2008; was post cholecystectomy at that time; had unremarkable MRCP Work up- CT abdomen/pelvis - Mild peripancreatic inflammatory change c/w acute pancreatitis. ? mild inflammatory change surrounding the terminal ileum and ascending colon. This may represent a low-grade enterocolitis. There is an associated fluid-filled colon; cholecystectomy; hepatic steatosis; a few prominent left thoracic periaortic and mesenteric lymph nodes; IUD in good position -Epigastric pain has resolved, Lipase normalized -S/P IVF. Tolerating PO well. -Pain mx- not requiring pain meds -Work up- Lipase >24K --> 573-->98 , LFTs slightly elevated- trending down, likely secondary to alcohol abuse. ALCOHOL WITHDRAWAL -Stable Hx Etoh abuse, was sober approx 2 years then relapsed 2 wks ago; drinking 1 bottle wine daily; last drink 03/09 night -No signs /symptoms of DTs; Stable -IV Ativan and gabapentin per withdrawal protocol -IV fluids- discontinued -Thiamine, MV, Folic acid PO -Hold natrexone -AA group support given and patient is quite motivated to drink DIARRHEA- Improved in consistency and frequency -Likely associated with above -C diff, stool studies Negative -Imodium PRN, Lomotil PRN DEPRESSION : Recently taken off Lexapro and Elavil approx 12 weeks ago due to sleep study results Recent suicidal ideation; denies suicidal ideation currently -Continue Effexor- Increased to 150 mg daily per Psych -Appreciate psych inputs ALLERGIC CONJUNCTIVITIS Ophthalmology contacted by ER physician - Ordered Naphcon drops which were recommended by ophthalmology HISTORY OF PSVT -Stable, NSR -Continue metoprolol succinate ASTHMA Not in acute exacerbation -Continue PRN albuterol inhaler DYSLIPIDEMIA -Hold statin for now- okay to restart DVT PROPHYLAXIS -Lovenox SQ DISPOSITION Did offer the patient the option to stay overnight to watch the trend of leucocytosis as worsening, however, clinically no complaints. Prefers to be discharged home today. Okay to discharge. Follow up with Dr Alan 03/20 at 11:00 AM Counseled about warning signs to seek medical attention Vital Signs: Date Time Temp Pulse Resp B/P Pulse Ox O2 Delivery O2 Flow Rate FiO2 03/14/17 08:00 Room Air 03/14/17 07:30 36.5 70 18 135/92 98 Room Air 03/14/17 00:06 36.6 74 20 137/86 92 Room Air 03/13/17 23:40 Room Air 03/13/17 16:00 Room Air 03/13/17 14:48 37.0 63 18 124/79 95 Room Air Lab Results: Results Past 24 Hours Test 03/14/17 07:20 03/14/17 07:26 Range/Units Sodium Level 139 136-145 mmol/L Potassium Level 3.4 3.5-5.1 mmol/L Chloride Level 104 98-107 mmol/L Carbon Dioxide Level 26 21-32 mmol/L Anion Gap 9.0 3-11 mmol/L Blood Urea Nitrogen 6 7-18 mg/dl Creatinine 0.70 0.60-1.20 mg/dl Est Creatinine Clear Calc Drug Dose 110.8 ml/min Estimated GFR () 117.9 Estimated GFR (Non- 101.7 BUN/Creatinine Ratio 7.9 10-20 Random Glucose 93 70-99 mg/dl Calcium Level 8.4 8.5-10.1 mg/dl Phosphorus Level 2.6 2.5-4.9 mg/dl Total Bilirubin 0.3 0.2-1 mg/dl Aspartate Amino Transf (AST/SGOT) 32 15-37 U/L Alanine Aminotransferase (ALT/SGPT) 99 12-78 U/L Alkaline Phosphatase 182 45-117 U/L Total Protein 5.8 6.4-8.2 gm/dl Albumin 2.8 3.4-5.0 gm/dl Globulin 3.0 2.5-4.0 gm/dl Albumin/Globulin Ratio 0.9 0.9-2 White Blood Count 19.30 4.8-10.8 K/uL Red Blood Count 4.31 4.2-5.4 M/uL Hemoglobin 13.8 12.0-16.0 g/dL Hematocrit 39.7 37-47 % Mean Corpuscular Volume 92.1 80-100 fL Mean Corpuscular Hemoglobin 32.0 25-34 pg Mean Corpuscular Hemoglobin Concent 34.8 32-36 g/dl RDW Standard Deviation 44.2 36.4-46.3 fL RDW Coefficient of Variation 13.0 11.5-14.5 % Platelet Count 245 130-400 K/uL Mean Platelet Volume 9.3 7.4-10.4 fL Nucleated RBC Absolute Count (auto) 0.02 0-0 K/uL Nucleated Red Blood Cells % 0.1 %
[2017-03-14] MEDS ORDERED: IMD2X PO ×2 (12:12→13:14)
[2017-03-14] MEDS ORDERED: PRT40 PO ×2 (12:12→13:14)
[2017-03-14] MEDS ORDERED: CNT PO (12:12)
[2017-03-14] MEDS ORDERED: EFFSR75 PO ×2 (12:12→13:14)
[2017-03-14] MEDS: IBUPROFEN 200 MG TAB PO PRN (12:13)
--- NOTE | 2017-03-14 12:16 | Discharge Instructions ---
Discharge Instructions Date of Service Mar 14, 2017. Admission Reason for Admission: Alcohol Withdrawl;Pancreatitis Discharge Discharge Diagnosis / Problem: 1. Acute alcoholic pancreatitis 2. Diarrhea, infectious causes ruled out Discharge Goals Goal(s): Improve disease control, Prevent Disease Progression, Specific goals ( QUIT ALCOHOL) Activity Recommendations Activity Limitations: resume your previous activity . Instructions / Follow-Up Instructions / Follow-Up MEDICATION CHANGES: 1. New medication: Protonix 40 mg daily for acidity 2. Effexor increased to 150 mg per psychiatrist 3. Imodium to be only taken as instructed for not more than 5 days. If diarrhea worsens and requirement is more than 3 a day, please call your PCP QUIT ALCOHOL FOLLOW UP 1. Dr Alan (PCP) 03/20/17 at 11:00 AM 2. Follow up with psychiatry- need to be set up by PCP Current Hospital Diet Patient's current hospital diet: Regular Diet, Low Fat Diet Discharge Diet Recommended Diet: Low Fat Diet ( TOLERATED) Pending Studies Studies pending at discharge: no Laboratory Results Lipid Panel Test 03/11/17 05:03 Range/Units Triglycerides Level 137 0-150 mg/dl Cholesterol Level 122 0-200 mg/dl HDL Cholesterol 30 mg/dl Cholesterol/HDL Ratio 4.1 LDL Cholesterol, Calculated 65 mg/dl Medical Emergencies . Who to Call and When: Medical Emergencies: If at any time you feel your situation is an emergency, please call 911 immediately. . Non-Emergent Contact Non-Emergency issues call your: Primary Care Provider Call Non-Emergent contact if: temperature is above 100.5, your pain is worsening . . "Provider Documentation" section prepared by Jaquelin Gordon. . VTE Core Measure Inpt VTE Proph given/why not?: Enoxaparin (Lovenox)SQ
[2017-03-14] MEDS ORDERED: NPHA OPR (12:19)
--- NOTE | 2017-03-14 12:20 | Discharge Summary ---
Discharge Summary Date of Service Mar 14, 2017. Discharge Summary Admission Date: Mar 10, 2017 at 14:37 Discharge Date: Mar 14, 2017 Discharge Disposition: Home Principal Diagnosis: 1. Acute alcoholic pancreatitis 2. Hypokalemia, Hypophosphatemia 3. Alcohol abuse/withdrawal Secondary Diagnoses/Problems: 1. Allergic conjunctivitis 2. Depression Procedures: ICU monitoring Tele monitoring CXR CT abd/pelvis IV fluids Consultations: Critical care during ICU stay GI Psychiatry Pending Studies/Follow-Up: Instructions / Follow-Up Instructions / Follow-Up MEDICATION CHANGES: 1. New medication: Protonix 40 mg daily for acidity 2. Effexor increased to 150 mg per psychiatrist 3. Imodium to be only taken as instructed for not more than 5 days. If diarrhea worsens and requirement is more than 3 a day, please call your PCP QUIT ALCOHOL MONITOR: 1. Diarrhea 2. CBC, CMP during next office visit to ensure WBC , LFTs trending down. FOLLOW UP 1. Dr Alan (PCP) 03/20/17 at 11:00 AM 2. Follow up with psychiatry- need to be set up by PCP Medication Reconciliation New Medications: Loperamide Hcl (Imodium) 2 Mg Cap 2 MG PO Q8H PRN for Diarrhea for 7 Days, #21 CAP Multivitamins/Minerals (Certavite/Antioxidants) 1 Tab Tab 1 TAB PO QAM for 30 Days, #30 TAB 2 Refills Naphazoline/Pheniramine (Naphcon-A) 15 Ml Soln 2 DROPS OPR Q6H PRN for Itching for 10 Days, #1 VIAL Pantoprazole (Pantoprazole Sodium) 40 Mg Tab 40 MG PO DAILY for 30 Days, #30 TAB 2 Refills Venlafaxine Hcl (Effexor Extended Rel) 75 Mg Capcr 150 MG PO DAILY for 30 Days, #60 TAB 2 Refills Continued Medications: Albuterol Hfa (Ventolin Hfa) 200 Puffs/44160 Mcg Aers 2 PUFFS INH Q4H PRN for SOB/Wheezing, #1 INHALER Atorvastatin (Lipitor) 40 Mg Tab 40 MG PO DAILY Gabapentin (Gabapentin) 100 Mg Cap 100 MG PO BID Levonorgestrel (Iud) (Mirena) 20 Mcg/24 Hr Iud 1 INT UTER CONTINOUS Metoprolol Succinate (Toprol Xl) 25 Mg Tabcr 25 MG PO DAILY Naltrexone Hcl (Naltrexone Hcl) 50 Mg Tab 100 MG PO BID for 30 Days, #120 TAB 2 Refills Discontinued Medications: Venlafaxine Hcl (Effexor) 75 Mg Tab 75 MG PO DAILY, TAB Admission Information HPI (per Admitting provider): This is a 51 year old female with hx of acute pancreatitis, alcohol abuse, depression, hx PSVT, and other problems listed below who presents to the ED for right eye symptoms and abdominal pain with diarrhea. Pt reports diarrhea x 2 days which worsened today with loose to liquid BM greater than once an hour. She awoke at 9 am with abdominal pain which she describes as diffuse originally rated 4-5/10 now rated 1/10. She had nausea earlier today which resolved with Zofran. Has occasional reflux. Pt states she went through rehab approx 2 years ago for alcohol abuse then relapsed 2 weeks ago. Has been drinking 1 bottle of wine per day. Last drink around midnight last night. She denies hx of DT's or alcohol withdrawal seizure. She is feeling anxious, shaky, and chills today. She reports being taken off Lexapro and Elavil approx 12 weeks ago and since that time has worsened depression, anxiety, insomnia. She states meds were stopped due to poor REM sleep on sleep study (f/u for prior sleep apnea- resolved per patient) . She reports recent suicidal ideation including this morning but denies suicidal ideation at this time. She does see psychiatry "Lea" [employer], unsure of the full name. Pt reports R >L eye itching, swelling. States eyes are chronically itchy due to pollen allergy but it worsened today. Has mild blurry vision R eye. She had a difficult time taking her contacts out this morning. Has been rubbing the eye. Denies known foreign body in the eye. Pt denies fever, diaphoresis, SOB, chest pain, dizziness, palpitations, vomiting , hematochezia, melena, dysuria, frequency, paresthesias. Recently travelled to [facility] from [place]-. No sick contacts or recent antibiotics. Pt had cholecystectomy in 2003. Was hospitalized for pancreatitis at [facility] in 2008. She was seen by [facility] and had unremarkable MRCP at that time. Physical Exam (per Admitting): General Appearance: WD/WN, + pertinent finding (alert 51 year old female, mild distress, mildly anxious, tremulous) Head: normocephalic, atraumatic Eyes: PERRL, + pertinent finding (right scleral injection and mild swelling of right upper and lower eyelid. no periorbital erythema or tenderness. ) ENT: hearing grossly normal, pharynx normal Neck: supple, trachea midline Respiratory/Chest: lungs clear, normal breath sounds, no respiratory distress, no accessory muscle use Cardiovascular: no murmur, + tachycardia (rate 90s, regular) Abdomen/GI: non tender, soft, + abnormal bowel sounds (sluggish bowel sounds ) Extremities/Musculoskelatal: normal inspection, no calf tenderness, normal capillary refill, no pedal edema Neurologic/Psych: alert, oriented x 3, + pertinent finding (mildly anxious, + tremor of the upper extremities) Skin: normal color, warm/dry Physical Exam (per Admitting): On my reassessment 1 hour later, patient sleeping but easily arousable, no longer tremulous. Hospital Course ACUTE PANCREATITIS, Likely alcoholic - Resolved Hx prior pancreatitis in 2008; was post cholecystectomy at that time; had unremarkable MRCP Work up- CT abdomen/pelvis - Mild peripancreatic inflammatory change c/w acute pancreatitis. ? mild inflammatory change surrounding the terminal ileum and ascending colon. This may represent a low-grade enterocolitis. There is an associated fluid-filled colon; cholecystectomy; hepatic steatosis; a few prominent left thoracic periaortic and mesenteric lymph nodes; IUD in good position -Epigastric pain has resolved, Lipase normalized -S/P IVF. Tolerating PO well. -Pain mx- not requiring pain meds -Work up- Lipase >24K --> 573-->98 , LFTs slightly elevated- trending down, likely secondary to alcohol abuse. ALCOHOL WITHDRAWAL -Stable Hx Etoh abuse, was sober approx 2 years then relapsed 2 wks ago; drinking 1 bottle wine daily; last drink 03/09 night -No signs /symptoms of DTs; Stable -IV Ativan and gabapentin per withdrawal protocol -IV fluids- discontinued -Thiamine, MV, Folic acid PO -Hold natrexone -AA group support given and patient is quite motivated to drink DIARRHEA- Improved in consistency and frequency -Likely associated with above -C diff, stool studies Negative -Imodium PRN, Lomotil PRN EPISODE OF WHEEZING- Resolved Had a CXR done on 03/13/17 night by night physician for wheezing--> mild pulmonary congestion vs pneumonia -No new cough, chest pain, SOB, ambulating well, but worsening leucocytosis. On my exam today- no wheezing, crackles -CXR repeated today- improving left base opacities, recommends follow up. WORSENING LEUCOCYTOSIS WBC count has been trending up 16k-->19k. No new signs of infection. Pancreatitis symptoms have resolved, diarrhea is improving in frequency/consistency -Lipase normalized, C diff negative, Stool studies negative, CXR- some congestion vs left base opacities---> improved today. No clinical signs of pneumonia. -Offered to monitor trend while in hospital, but prefers to be discharged and outpatient follow up. -Need to follow up outpatient during next office visit HYPOKALEMIA/HYPOPHOSPHATEMIA -Replaced DEPRESSION : Recently taken off Lexapro and Elavil approx 12 weeks ago due to sleep study results Recent suicidal ideation; denies suicidal ideation currently -Continue Effexor- Increased to 150 mg daily per Psych -Appreciate psych inputs ALLERGIC CONJUNCTIVITIS Ophthalmology contacted by ER physician - Ordered Naphcon drops which were recommended by ophthalmology HISTORY OF PSVT -Stable, NSR -Continue metoprolol succinate ASTHMA Not in acute exacerbation -Continue PRN albuterol inhaler DYSLIPIDEMIA -Hold statin for now- okay to restart DVT PROPHYLAXIS -Lovenox SQ DISPOSITION Did offer the patient the option to stay overnight to watch the trend of leucocytosis as worsening, however, clinically no complaints. Prefers to be discharged home today. Okay to discharge. Follow up with Dr Alan 03/20 at 11:00 AM Counseled about warning signs to seek medical attention Total time spent on discharge = 40 MINUTES This includes examination of the patient, discharge planning, medication reconciliation, and communication with other providers. Discharge Instructions Discharge Goals Goal(s): Improve disease control, Prevent Disease Progression, Specific goals ( QUIT ALCOHOL) Activity Recommendations Activity Limitations: resume your previous activity . Instructions / Follow-Up Instructions / Follow-Up MEDICATION CHANGES: 1. New medication: Protonix 40 mg daily for acidity 2. Effexor increased to 150 mg per psychiatrist 3. Imodium to be only taken as instructed for not more than 5 days. If diarrhea worsens and requirement is more than 3 a day, please call your PCP QUIT ALCOHOL FOLLOW UP 1. Dr Alan (PCP) 03/20/17 at 11:00 AM 2. Follow up with psychiatry- need to be set up by PCP Current Hospital Diet Patient's current hospital diet: Regular Diet, Low Fat Diet Discharge Diet Recommended Diet: Low Fat Diet ( TOLERATED) Pending Studies Studies pending at discharge: no Laboratory Results Lipid Panel Test 03/11/17 05:03 Range/Units Triglycerides Level 137 0-150 mg/dl Cholesterol Level 122 0-200 mg/dl HDL Cholesterol 30 mg/dl Cholesterol/HDL Ratio 4.1 LDL Cholesterol, Calculated 65 mg/dl Medical Emergencies . Who to Call and When: Medical Emergencies: If at any time you feel your situation is an emergency, please call 911 immediately. . Non-Emergent Contact Non-Emergency issues call your: Primary Care Provider Call Non-Emergent contact if: temperature is above 100.5, your pain is worsening . . "Provider Documentation" section prepared by Jaquelin Gordon. . VTE Core Measure Inpt VTE Proph given/why not?: Enoxaparin (Lovenox)SQ
[2017-03-14 12:30] VITALS: BP 135/92; PULSE 70; TEMP 36.5; O2SAT 98
== END 2017-03-14 13:17 | disposition home or self-care (01) | DRG 439 ==
LOC: ENRESERVTM → ENRESERVDT → C.EDB 09:58 → C.MED 14:37 → EEVIPCON 14:37 → EDBEDREQ 14:51 → C.MSICU 17:04 → C.2E 03-11 18:23 → C.MS4W 03-12 14:47
PROVIDERS: ADMIT Hospitalist; ATTEND Internal Medicine
DX: K85.20 Alcohol induced acute pancreatitis without necrosis or infection (principal); F10.239 Alcohol dependence with withdrawal, unspecified; J81.1 Chronic pulmonary edema; R06.2 Wheezing; J45.909 Unspecified asthma, uncomplicated; F32.9 Major depressive disorder, single episode, unspecified; E78.5 Hyperlipidemia, unspecified; E87.6 Hypokalemia; K21.9 Gastro-esophageal reflux disease without esophagitis; K75.9 Inflammatory liver disease, unspecified; K76.0 Fatty (change of) liver, not elsewhere classified; R19.7 Diarrhea, unspecified; D72.829 Elevated white blood cell count, unspecified; R50.9 Fever, unspecified; R00.0 Tachycardia, unspecified; G47.33 Obstructive sleep apnea (adult) (pediatric); F41.9 Anxiety disorder, unspecified; E83.39 Other disorders of phosphorus metabolism; H11.429 Conjunctival edema, unspecified eye; H10.13 Acute atopic conjunctivitis, bilateral; R74.0 Nonspecific elevation of levels of transaminase and lactic acid dehydrogenase [LDH]; Z86.69 Personal history of other diseases of the nervous system and sense organs; Z86.79 Personal history of other diseases of the circulatory system; Z79.899 Other long term (current) drug therapy

== ENCOUNTER 2019-12-13 17:08 | Inpatient (IN) ==
--- OUTSIDE RECORDS SUMMARY | 2019-12-13 17:12 | External Medical Summary | Continuity of Care Document ---
:1965 Author Name Frank Vallejo Address Unavailable Unavailable , Care Team Providers Name Role Phone Demar Vallejo Unavailable [email or web address] [email or web address], UNKNOWN Unavailable Unavailable Problems Active medical history not documented Allergies and Adverse Reactions Allergy history not documented Medications Medications not documented Procedures Procedures not documented Immunizations Immunizations not documented Plan of Treatment Planned Observations Planned Goals not documented Results No Known Results Results not documented
--- OUTSIDE RECORDS SUMMARY | 2019-12-13 17:13 | External Medical Summary | Continuity of Care Document ---
:1965 Author Name Frank Vallejo Address Unavailable Unavailable , Care Team Providers Name Role Phone Demar Vallejo Unavailable [email or web address] [email or web address], UNKNOWN Unavailable Unavailable Problems Active medical history not documented Allergies and Adverse Reactions Allergy history not documented Medications Medications not documented Procedures Procedures not documented Immunizations Immunizations not documented Plan of Treatment Planned Observations Planned Goals not documented Results No Known Results Results not documented
[2019-12-13] MEDS ORDERED: diazePAM 5 MG TABLET PO ONE (18:05)
[2019-12-13] MEDS ORDERED: LORazepam 2 MG/4 ML VIAL IV STA ×2 (18:06→18:48)
[2019-12-13] MEDS ORDERED: MULTI-VITAMIN INFUSION 10 ML, THIAMINE HCL 100 MG, FOLIC ACID 1 MG in SODIUM CHLORIDE 0... IV ONE (18:11)
[2019-12-13 18:31] LABS: Basophils # (auto) 0.04 K/uL (0-0.2); Basophils % (auto) 0.9 %; Eosinophils # (auto) 0.05 K/uL (0-0.5); Eosinophils % (auto) 1.1 %; Hematocrit (blood only) 42.3 % (37-47); Immature Granulocytes # (auto) 0.02 K/uL (0.00-0.02); Immature Granulocytes % (auto) 0.4 %; Lymphocytes # (auto) 0.75 K/uL (1.2-3.4); Lymphocytes % (auto) 16.3 %; Mean Corpuscular Hemoglobin 34.2 pg (25-34); Mean Corpuscular Hgb Conc 35.5 g/dL (32-36); Mean Corpuscular Volume 96.4 fL (80-100); Mean Platelet Volume 9.5 fL (7.4-10.4); Monocytes # (auto) 0.61 K/uL (0.11-0.59); Monocytes % (auto) 13.2 %; Neutrophils # (auto) 3.14 K/uL (1.4-6.5); Neutrophils % (auto) 68.1 %; Platelet Count 148 K/uL (130-400); RDW Coefficient of Variation 13.2 % (11.5-14.5); RDW Standard Deviation 47.1 fL (36.4-46.3); Red Blood Count 4.39 M/uL (4.2-5.4); White Blood Count 4.61 K/uL (4.8-10.8)
[2019-12-13 18:47] LABS: Albumin Level 4.5 gm/dl (3.4-5.0); BUN Creatinine Ratio 8.7 (10-20); Calcium 9.6 mg/dl (8.5-10.1); Creatinine Clr Calc Pharmacy 85.2 ml/min; Est GFR (Non-African American) 77.7; Potassium 3.5 mmol/L (3.5-5.1)
[2019-12-13 18:58] LABS: Albumin Globulin Ratio 1.1 (0.9-2); Bilirubin,Total 1.4 mg/dl (0.2-1); Thyroid Stimulating Hormone 4.75 uIu/ml (0.300-4.500); Total Protein 8.5 gm/dl (6.4-8.2)
[2019-12-13] MEDS ORDERED: LACTATED RINGER'S 1,000 ML IV ONE (21:22)
[2019-12-13] MEDS ORDERED: METOPROLOL TARTRATE 25 MG TAB PO STA (21:30)
[2019-12-13] MEDS ORDERED: POTASSIUM CHLORIDE 20 MEQ TABCR PO STA (21:33)
[2019-12-13 21:43] LABS: Magnesium 1.8 mg/dl (1.8-2.4)
[2019-12-13 22:08] LABS: Prothrombin Time 10.3 Seconds (9.0-12.0)
--- NOTE | 2019-12-13 22:21 | History & Physical Report ---
Date of Service December 13, 2019 Assessment & Plan (1) Alcohol withdrawal: Alcoholic hepatitis, steroid Rx currently not indicated w/ [place] DF of 2.8 points PSVT, patient NSR mood disorder, suboptimal recent diagnosis of left breast malignancy (DCIS). Hyperglycemia rule out DM Medical telemetry DT precautions Continue home beta-vicky for PSVT Psych consult RE suboptimal depression Check hemoglobin A1c Patient to schedule outpatient appointment with breast cancer specialist upon tomeka dowell. (PCPs office had tried to contact patient regarding issue as per records.) Social service RE discharge planning DVT prophylaxis per Lovenox subcu Full code History of Present Illness Chief Complaint: Detox Primary Care Provider: Dr. Alan History obtained from patient and records. Medical history significant for PSVT, hyperlipidemia, mood disorder, ongoing alcohol abuse, recent diagnosis of left breast malignancy (DCIS). Patient is an alcoholic who relapsed late 2017. Last rehab stay was about 4-5 years ago. 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 Patient had a meeting with her supervisors today. Alcohol detox/rehab recommended for continued employment at the [employer]. Patient feeling tremulous since last drink this afternoon. No chest pain, no S OB. No history of alcohol withdrawal seizures or intubation/mechanical ventilation support for bad alcohol withdrawal. Patient admits to depression not being well, denies suicidality. Medical History as above Left breast superficial mass (first noted 2015) status post core needle biopsy (11/2019) : DCIS. 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 Allergies Allergy/AdvReac Type Severity Reaction Status Date / Time tetracycline Allergy Mild MINOCYCLINE Verified 12/13/19 18:46 -RASH Sulfa (Sulfonamide Allergy Unknown PT DOESN'T Verified 12/13/19 18:46 Antibiotics) REMEMBER REACTION Home Medications Home Medications Medication Instructions Recorded Confirmed Type gabapentin 400 mg PO DAILY 11/25/18 12/13/19 History metoprolol succinate 25 mg PO DAILY 11/25/18 12/13/19 History naltrexone 100 mg PO BID 11/25/18 12/13/19 History amitriptyline 50 mg PO HS 12/13/19 12/13/19 History desvenlafaxine succinate [Pristiq] 50 mg PO DAILY 12/13/19 12/13/19 History omeprazole magnesium [Prilosec OTC] 20 mg PO DAILY PRN 12/13/19 12/13/19 History Past Med/Surg History Medical History Alcohol dependence Asthma (Chronic) Depression (Chronic) Dyslipidemia (Chronic) History of sleep apnea (Chronic) "resolved per patient" Insomnia (Chronic) Migraine (Chronic) PSVT (paroxysmal supraventricular tachycardia) (Chronic) Sleep apnea SVT (supraventricular tachycardia) (Chronic) Surgical History H/O colonoscopy (Chronic) "04/2016 perianal skin tag, normal colon" H/O esophagogastroduodenoscopy (Chronic) "07/04/2009- EUS exam- No choledocholithiasis, No masses appreciated in the entire pancreas. EGD exam- Normal examined duodenum. Bilious gastric fluid. Mild gastritis ? bilious etiology. Bx neg for H. pylori. Prominent fold just distal to GEJ. Bx- Squamocolumnar mucosa with mild carditis and hyperplastic changes. Negative for intestinal metaplasia and dysplasia. Medium sized hiatus hernia." On 03/10/17 15:26 Rita España wrote "07/04/2009- EUS exam- No choledocholithiasis, No masses appreciated in the entire pancreas. EGD exam- Normal examined duodenum. Bilious gastric fluid. Mild gastritis ? bilious etiology. This was biopsied to r/o H Pylori. Prominent fold just distal to GEJ. This was biopsied. Medium sized hiatus hernia." S/P laparoscopic cholecystectomy (Chronic) "2003" Family History Other Family history non-contributory Social History Preferred Language: British Communication Ability: Effective Toe Puller Required: No Beliefs That Will Affect Care: None marital status: Current Living Situation: Family Current Living Situation Comment: adult son lives w/ her current occupational status: employed Feels Safe at Home: Yes Smoking Status: Never smoker Hx Alcohol Use: Yes Alcohol type: wine Hx Substance Use: No Review of Systems Review of Systems: As per HPI, all 10 systems reviewed, all other ROS negative Physical Exam Physical Exam: GENERAL: Slightly uncomfortable, obese, tremulous, no respiratory distress SKIN: Normal color, warm HEENT: Bespectacled, pink palpebral conjunctivae, no ptosis, dry buccal mucosa NECK : Supple, short neck, no tenderness CHEST : CTA, no tenderness HEART : Tachycardic, no obvious murmurs ABDOMEN: Some distention, nontender EXTREMITIES : No LE swelling/tenderness, no other conspicuous deformities noted NEUROLOGIC : Coherent, no facial asymmetry, tremulous, no other gross focality Results & Data Vital Signs (Past 12 Hours) Vital Signs Temp Pulse Pulse Resp BP BP Pulse Ox 12/13/19 20:16 102 H 18 95 12/13/19 20:15 103 H 19 144/100 H 97 12/13/19 20:01 108 H 21 96 12/13/19 20:00 109 H 21 119/89 94 12/13/19 19:46 105 H 18 94 12/13/19 19:45 107 H 18 120/97 94 12/13/19 19:31 104 H 18 94 12/13/19 19:30 105 H 18 125/87 93 12/13/19 19:16 103 H 17 94 12/13/19 19:15 103 H 17 120/98 93 12/13/19 19:01 109 H 23 95 12/13/19 19:00 109 H 20 140/91 96 12/13/19 18:46 112 H 29 H 12/13/19 18:45 114 H 18 152/89 H 12/13/19 18:34 111 H 22 163/116 H 99 12/13/19 18:32 113 H 20 163/116 H 12/13/19 18:15 97 12/13/19 17:15 37.5 C 131 H 20 171/109 H 97 Laboratory Results Laboratory Results WBC 4.61 K/uL (4.8-10.8) L 12/13/19 18:16 RBC 4.39 M/uL (4.2-5.4) 12/13/19 18:16 Hgb 15.0 g/dL (12.0-16.0) 12/13/19 18:16 Hct 42.3 % (37-47) 12/13/19 18:16 MCV 96.4 fL (80-100) 12/13/19 18:16 MCH 34.2 pg (25-34) H 12/13/19 18:16 MCHC 35.5 g/dL (32-36) 12/13/19 18:16 RDW Std Deviation 47.1 fL (36.4-46.3) H 12/13/19 18:16 RDW Coeff of Marybeth 13.2 % (11.5-14.5) 12/13/19 18:16 Plt Count 148 K/uL (130-400) 12/13/19 18:16 MPV 9.5 fL (7.4-10.4) 12/13/19 18:16 Immature Gran % (Auto) 0.4 % 12/13/19 18:16 Neut % (Auto) 68.1 % 12/13/19 18:16 Lymph % (Auto) 16.3 % 12/13/19 18:16 [place] % (Auto) 13.2 % 12/13/19 18:16 Eos % (Auto) 1.1 % 12/13/19 18:16 Baso % (Auto) 0.9 % 12/13/19 18:16 Immature Gran # (Auto) 0.02 K/uL (0.00-0.02) 12/13/19 18:16 Neut # (Auto) 3.14 K/uL (1.4-6.5) 12/13/19 18:16 Lymph # (Auto) 0.75 K/uL (1.2-3.4) L 12/13/19 18:16 [place] # (Auto) 0.61 K/uL (0.11-0.59) H 12/13/19 18:16 Eos # (Auto) 0.05 K/uL (0-0.5) 12/13/19 18:16 Baso # (Auto) 0.04 K/uL (0-0.2) 12/13/19 18:16 PT 10.3 Seconds (9.0-12.0) 12/13/19 18:17 INR 1.0 (0.9-1.1) 12/13/19 18:17 Sodium 133 mmol/L (136-145) L 12/13/19 18:16 Potassium 3.5 mmol/L (3.5-5.1) 12/13/19 18:16 Chloride 97 mmol/L (98-107) L 12/13/19 18:16 Carbon Dioxide 24 mmol/L (21-32) 12/13/19 18:16 Anion Gap 12.0 (3-11) H 12/13/19 18:16 BUN 7 mg/dl (7-18) 12/13/19 18:16 Creatinine 0.86 mg/dl (0.6-1.2) 12/13/19 18:16 Est Cr Clr Drug Dosing 85.2 ml/min 12/13/19 18:16 Est GFR ( Amer) 90.0 12/13/19 18:16 Est GFR (Non-Af Amer) 77.7 12/13/19 18:16 BUN/Creatinine Ratio 8.7 (10-20) L 12/13/19 18:16 Glucose 125 mg/dl (70-99) H 12/13/19 18:16 Calcium 9.6 mg/dl (8.5-10.1) 12/13/19 18:16 Magnesium 1.8 mg/dl (1.8-2.4) 12/13/19 18:16 Total Bilirubin 1.4 mg/dl (0.2-1) H 12/13/19 18:16 AST 386 U/L (15-37) H 12/13/19 18:16 ALT 336 U/L (12-78) H 12/13/19 18:16 Alkaline Phosphatase 118 U/L (45-117) H 12/13/19 18:16 Total Protein 8.5 gm/dl (6.4-8.2) H 12/13/19 18:16 Albumin 4.5 gm/dl (3.4-5.0) 12/13/19 18:16 Globulin 4.0 gm/dl (2.5-4.0) 12/13/19 18:16 Albumin/Globulin Ratio 1.1 (0.9-2) 12/13/19 18:16 Lipase 138 U/L (73-393) 12/13/19 18:16 TSH 4.750 uIu/ml (0.300-4.500) H 12/13/19 18:16 Ethyl Alcohol mg/dL 13.0 mg/dl (0-3) H 01/21/20 18:16 Diagnostic Findings EKG as per my interpretation: Rate 110, normal axis, sinus tachycardia, normal axis, no ischemia, PVCs (1) Alcohol withdrawal Complication of substance-induced condition: with unspecified complication Qualified Code(s): F10.239 - Alcohol dependence with withdrawal, unspecified
[2019-12-13] MEDS ORDERED: METOPROLOL TARTRATE 50 MG TAB ONE (22:22)
[2019-12-13] MEDS ORDERED: GABAPENTIN 600 MG TAB PO STA (22:23)
[2019-12-13 22:53] LABS: Appearance Urine Cloudy (Clear); Bacteria Urine Automated 2+ (Negative); Blood Urine Negative (Negative); Color Urine Dark Yellow; Epithelial Cell Urine Auto >30 /lpf (0-5); Glucose Urine UA Negative (Negative); Leukocyte Esterase Urine Trace (Negative); Nitrite Urine Positive (Negative); Protein Urine 1+ (Negative); Specific Gravity Urine 1.028 (1.000-1.030); Urobilinogen Urine Negative (Negative)
[2019-12-13 23:03] LABS: Ketones Urine 3+ (Negative)
[2019-12-13 23:04] LABS: Bilirubin Urine Negative (Negative); Ictotest Urine Negative (Negative)
[2019-12-13 23:08] LABS: Amphetamines+Metham, Urine Neg (Neg); Barbiturates, Urine Neg (Neg); Benzodiazepine, Urine Pos (Neg); Cocaine, Urine Neg (Neg); MDMA (Ecstacy), Urine Neg (Neg); Methadone, Urine Neg (Neg); Opiate, Urine Neg (Neg); Phencyclidine, Urine Neg (Neg)
[2019-12-13] MEDS ORDERED: GABAPENTIN 1200MG ALCOHOL WITHDRAWAL LOAD PO STA (23:19)
[2019-12-13] MEDS ORDERED: ACETAMINOPHEN 325 MG TAB PO PRN (23:19)
[2019-12-13] MEDS ORDERED: ATIVAN IV ALCOHOL WITHDRAWL IV PRN (23:19)
[2019-12-13] MEDS ORDERED: PROMETHAZINE HCL 12.5 MG in SODIUM CHLORIDE 0.9% 50 ML IV PRN (23:19)
[2019-12-13] MEDS ORDERED: OXYCODONE HCL IR 5 MG TAB (IMMEDIATE RELEASE) PO PRN (23:19)
[2019-12-13] MEDS ORDERED: MAGNESIUM SULFATE / D5W 1 GM/100 ML BAG IV ONE (23:19)
[2019-12-13] MEDS ORDERED: PANTOprazole 40 MG TAB PO PRN (23:34)
[2019-12-13] MEDS ORDERED: INFLUENZA VIRUS QUAD VACCINE 0.5 ML SYR IM ONE (23:59)
[2019-12-13] MEDS ORDERED: INFLUENZA ADMINISTRATION CHARGE ONE (23:59)
[2019-12-14] MEDS ORDERED: LACTATED RINGER'S 1,000 ML IV ONE
--- NOTE | 2019-12-14 00:12 | Emergency Department Note ---
Entered by Cecilia Stafford acting as a scribe for Krystin Garcia MD History of Present Illness General Chief complaint: Alcohol Withdrawal Stated complaint: ALCOHOL WITHDRAWL Time Seen by Provider: 12/13/19 18:03 Source: patient History of Present Illness Onset (ago): hour(s) 7 Location: head (general) Pain Consistency: + other (episode ) Quality: + other (alcohol withdrawal) Associated symptoms: + diaphoresis and + other (positive shaky; positive anxious) The patient is a 54 year old female who presents to the Emergency Room with complaints of an episode of alcohol withdrawal that began at 1100 this morning, 7 hours prior to arrival. The patient states that this was the last time she had an alcoholic drink. The patient states that she was previously in recovery, but states that she relapsed over [place], approximately 4 weeks ago. The patient states that she has been drinking 2-3 bottles of wine everyday. The patient reports that she has been feeling shaky, anxious, and sweaty today. The patient states that she decided to stop drinking as she went to her job drunk last week and had an intervention today with her boss. The patient states that she has not been taking a lot of her medications recently, but states that she took 300 mg of Gabapentin twice today. She denies any recent falls. The patient states that when she went through withdrawal previously she had an arrhythmia, but she is uncertain of the diagnosis. The patient states that 2.5 weeks ago she had a left breast biopsy that showed DCIS. She reports that she is supposed to have a consultation with a surgeon in 2 days. Home Medications Home Medications Medication Instructions Recorded Confirmed Type gabapentin 400 mg PO DAILY 11/25/18 12/13/19 History metoprolol succinate 25 mg PO DAILY 11/25/18 12/13/19 History naltrexone 100 mg PO BID 11/25/18 12/13/19 History amitriptyline 50 mg PO HS 12/13/19 12/13/19 History desvenlafaxine succinate [Pristiq] 50 mg PO DAILY 12/13/19 12/13/19 History omeprazole magnesium [Prilosec OTC] 20 mg PO DAILY PRN 12/13/19 12/13/19 History Allergies Allergy/AdvReac Type Severity Reaction Status Date / Time tetracycline Allergy Mild MINOCYCLINE Verified 12/13/19 18:46 -RASH Sulfa (Sulfonamide Allergy Unknown PT DOESN'T Verified 12/13/19 18:46 Antibiotics) REMEMBER REACTION Past Med/Surg History Medical History Alcohol dependence Asthma (Chronic) Depression (Chronic) Dyslipidemia (Chronic) History of sleep apnea (Chronic) "resolved per patient" Insomnia (Chronic) Migraine (Chronic) PSVT (paroxysmal supraventricular tachycardia) (Chronic) Sleep apnea SVT (supraventricular tachycardia) (Chronic) Surgical History H/O colonoscopy (Chronic) "04/2016 perianal skin tag, normal colon" H/O esophagogastroduodenoscopy (Chronic) "07/04/2009- EUS exam- No choledocholithiasis, No masses appreciated in the entire pancreas. EGD exam- Normal examined duodenum. Bilious gastric fluid. Mild gastritis ? bilious etiology. Bx neg for H. pylori. Prominent fold just distal to GEJ. Bx- Squamocolumnar mucosa with mild carditis and hyperplastic changes. Negative for intestinal metaplasia and dysplasia. Medium sized hiatus hernia." On 03/10/17 15:26 Rita España wrote "07/04/2009- EUS exam- No choledocholithiasis, No masses appreciated in the entire pancreas. EGD exam- Normal examined duodenum. Bilious gastric fluid. Mild gastritis ? bilious etiology. This was biopsied to r/o H Pylori. Prominent fold just distal to GEJ. This was biopsied. Medium sized hiatus hernia." S/P laparoscopic cholecystectomy (Chronic) "2003" Family History Other Family history non-contributory Social History Preferred Language: Kazakh Communication Ability: Effective Therapist Required: No Beliefs That Will Affect Care: None marital status: Current Living Situation: Family Current Living Situation Comment: adult son lives w/ her current occupational status: employed Feels Safe at Home: Yes Smoking Status: Never smoker Hx Alcohol Use: Yes Alcohol type: wine Hx Substance Use: No Review of Systems See HPI for pertinent positives & negatives. and A total of 10 systems reviewed and were otherwise negative Physical Exam Vital Signs Vital Signs - 24 hr 12/13/19 17:15 12/13/19 18:15 12/13/19 18:32 Temperature 37.5 C Temperature Source Oral Pulse Rate 131 H 113 H Pulse Rate [Left Apical] Pulse Rate from SpO2 Sensor Pulse Rhythm Regular Pulse Rhythm [Left Apical] Pulse Strength Normal Pulse Strength [Left Apical] Respiratory Rate 20 20 Respiratory Effort / Characteristics Non-Labored Spontaneous Respiratory Depth Normal Respiratory Pattern Regular Blood Pressure 171/109 H 163/116 H Blood Pressure [Right Arm] Blood Pressure Mean 129 135 Blood Pressure Mean [Right Arm] Blood Pressure Position Sitting Blood Pressure Position [Right Arm] Pulse Oximetry 97 97 Oxygen Delivery Method Room Air Room Air Sepsis Recent Fever Within 48 Hours No Sepsis New/Unexplained Change in Mental Status No Sepsis Action Taken by Nursing No Action Required 12/13/19 18:34 12/13/19 18:45 12/13/19 18:46 Temperature Temperature Source Pulse Rate 114 H 112 H Pulse Rate [Left Apical] 111 H Pulse Rate from SpO2 Sensor Pulse Rhythm Pulse Rhythm [Left Apical] Regular Pulse Strength Pulse Strength [Left Apical] Normal Respiratory Rate 22 18 29 H Respiratory Effort / Characteristics Non-Labored Spontaneous Respiratory Depth Normal Respiratory Pattern Regular Blood Pressure 152/89 H Blood Pressure [Right Arm] 163/116 H Blood Pressure Mean 112 Blood Pressure Mean [Right Arm] 131 Blood Pressure Position Blood Pressure Position [Right Arm] Lying Pulse Oximetry 99 Oxygen Delivery Method Room Air Sepsis Recent Fever Within 48 Hours Sepsis New/Unexplained Change in Mental Status Sepsis Action Taken by Nursing 12/13/19 19:00 12/13/19 19:01 12/13/19 19:15 Temperature Temperature Source Pulse Rate 109 H 109 H 103 H Pulse Rate [Left Apical] Pulse Rate from SpO2 Sensor 109 H 109 H 104 H Pulse Rhythm Pulse Rhythm [Left Apical] Pulse Strength Pulse Strength [Left Apical] Respiratory Rate 20 23 17 Respiratory Effort / Characteristics Respiratory Depth Respiratory Pattern Blood Pressure 140/91 120/98 Blood Pressure [Right Arm] Blood Pressure Mean 102 107 Blood Pressure Mean [Right Arm] Blood Pressure Position Blood Pressure Position [Right Arm] Pulse Oximetry 96 95 93 Oxygen Delivery Method Sepsis Recent Fever Within 48 Hours Sepsis New/Unexplained Change in Mental Status Sepsis Action Taken by Nursing 12/13/19 19:16 12/13/19 19:30 12/13/19 19:31 Temperature Temperature Source Pulse Rate 103 H 105 H 104 H Pulse Rate [Left Apical] Pulse Rate from SpO2 Sensor 102 H 105 H 104 H Pulse Rhythm Pulse Rhythm [Left Apical] Pulse Strength Pulse Strength [Left Apical] Respiratory Rate 17 18 18 Respiratory Effort / Characteristics Respiratory Depth Respiratory Pattern Blood Pressure 125/87 Blood Pressure [Right Arm] Blood Pressure Mean 93 Blood Pressure Mean [Right Arm] Blood Pressure Position Blood Pressure Position [Right Arm] Pulse Oximetry 94 93 94 Oxygen Delivery Method Sepsis Recent Fever Within 48 Hours Sepsis New/Unexplained Change in Mental Status Sepsis Action Taken by Nursing 12/13/19 19:45 12/13/19 19:46 12/13/19 20:00 Temperature Temperature Source Pulse Rate 107 H 105 H 109 H Pulse Rate [Left Apical] Pulse Rate from SpO2 Sensor 108 H 106 H 108 H Pulse Rhythm Pulse Rhythm [Left Apical] Pulse Strength Pulse Strength [Left Apical] Respiratory Rate 18 18 21 Respiratory Effort / Characteristics Respiratory Depth Respiratory Pattern Blood Pressure 120/97 119/89 Blood Pressure [Right Arm] Blood Pressure Mean 112 101 Blood Pressure Mean [Right Arm] Blood Pressure Position Blood Pressure Position [Right Arm] Pulse Oximetry 94 94 94 Oxygen Delivery Method Sepsis Recent Fever Within 48 Hours Sepsis New/Unexplained Change in Mental Status Sepsis Action Taken by Nursing 12/13/19 20:01 12/13/19 20:15 12/13/19 20:16 Temperature Temperature Source Pulse Rate 108 H 103 H 102 H Pulse Rate [Left Apical] Pulse Rate from SpO2 Sensor 106 H 102 H 103 H Pulse Rhythm Pulse Rhythm [Left Apical] Pulse Strength Pulse Strength [Left Apical] Respiratory Rate 21 19 18 Respiratory Effort / Characteristics Respiratory Depth Respiratory Pattern Blood Pressure 144/100 H Blood Pressure [Right Arm] Blood Pressure Mean 110 Blood Pressure Mean [Right Arm] Blood Pressure Position Blood Pressure Position [Right Arm] Pulse Oximetry 96 97 95 Oxygen Delivery Method Sepsis Recent Fever Within 48 Hours Sepsis New/Unexplained Change in Mental Status Sepsis Action Taken by Nursing 12/13/19 20:30 12/13/19 20:31 12/13/19 20:45 Temperature Temperature Source Pulse Rate 104 H 107 H 106 H Pulse Rate [Left Apical] Pulse Rate from SpO2 Sensor 104 H 107 H 106 H Pulse Rhythm Pulse Rhythm [Left Apical] Pulse Strength Pulse Strength [Left Apical] Respiratory Rate 18 17 19 Respiratory Effort / Characteristics Respiratory Depth Respiratory Pattern Blood Pressure 129/97 129/95 Blood Pressure [Right Arm] Blood Pressure Mean 100 103 Blood Pressure Mean [Right Arm] Blood Pressure Position Blood Pressure Position [Right Arm] Pulse Oximetry 98 97 97 Oxygen Delivery Method Sepsis Recent Fever Within 48 Hours Sepsis New/Unexplained Change in Mental Status Sepsis Action Taken by Nursing 12/13/19 20:46 12/13/19 21:00 12/13/19 21:01 Temperature Temperature Source Pulse Rate 105 H 103 H 105 H Pulse Rate [Left Apical] Pulse Rate from SpO2 Sensor 106 H 103 H 106 H Pulse Rhythm Pulse Rhythm [Left Apical] Pulse Strength Pulse Strength [Left Apical] Respiratory Rate 19 17 17 Respiratory Effort / Characteristics Respiratory Depth Respiratory Pattern Blood Pressure 129/90 Blood Pressure [Right Arm] Blood Pressure Mean 98 Blood Pressure Mean [Right Arm] Blood Pressure Position Blood Pressure Position [Right Arm] Pulse Oximetry 96 96 96 Oxygen Delivery Method Sepsis Recent Fever Within 48 Hours Sepsis New/Unexplained Change in Mental Status Sepsis Action Taken by Nursing 12/13/19 21:15 12/13/19 21:16 12/13/19 21:30 Temperature Temperature Source Pulse Rate 108 H 107 H 110 H Pulse Rate [Left Apical] Pulse Rate from SpO2 Sensor 108 H 107 H 109 H Pulse Rhythm Pulse Rhythm [Left Apical] Pulse Strength Pulse Strength [Left Apical] Respiratory Rate 20 18 22 Respiratory Effort / Characteristics Respiratory Depth Respiratory Pattern Blood Pressure 132/80 131/93 Blood Pressure [Right Arm] Blood Pressure Mean 109 107 Blood Pressure Mean [Right Arm] Blood Pressure Position Blood Pressure Position [Right Arm] Pulse Oximetry 96 96 97 Oxygen Delivery Method Sepsis Recent Fever Within 48 Hours Sepsis New/Unexplained Change in Mental Status Sepsis Action Taken by Nursing 12/13/19 21:31 12/13/19 21:45 12/13/19 21:46 Temperature Temperature Source Pulse Rate 110 H 109 H 109 H Pulse Rate [Left Apical] Pulse Rate from SpO2 Sensor 112 H 109 H 109 H Pulse Rhythm Pulse Rhythm [Left Apical] Pulse Strength Pulse Strength [Left Apical] Respiratory Rate 22 20 22 Respiratory Effort / Characteristics Respiratory Depth Respiratory Pattern Blood Pressure 146/73 H Blood Pressure [Right Arm] Blood Pressure Mean 111 Blood Pressure Mean [Right Arm] Blood Pressure Position Blood Pressure Position [Right Arm] Pulse Oximetry 97 95 96 Oxygen Delivery Method Sepsis Recent Fever Within 48 Hours Sepsis New/Unexplained Change in Mental Status Sepsis Action Taken by Nursing 12/13/19 22:00 12/13/19 22:01 12/13/19 22:15 Temperature Temperature Source Pulse Rate 111 H 111 H 110 H Pulse Rate [Left Apical] Pulse Rate from SpO2 Sensor 115 H 110 H 110 H Pulse Rhythm Pulse Rhythm [Left Apical] Pulse Strength Pulse Strength [Left Apical] Respiratory Rate 17 21 26 H Respiratory Effort / Characteristics Respiratory Depth Respiratory Pattern Blood Pressure 122/83 154/86 H Blood Pressure [Right Arm] Blood Pressure Mean 109 106 Blood Pressure Mean [Right Arm] Blood Pressure Position Blood Pressure Position [Right Arm] Pulse Oximetry 95 97 95 Oxygen Delivery Method Sepsis Recent Fever Within 48 Hours Sepsis New/Unexplained Change in Mental Status Sepsis Action Taken by Nursing 12/13/19 22:16 Temperature Temperature Source Pulse Rate 110 H Pulse Rate [Left Apical] Pulse Rate from SpO2 Sensor 110 H Pulse Rhythm Pulse Rhythm [Left Apical] Pulse Strength Pulse Strength [Left Apical] Respiratory Rate 22 Respiratory Effort / Characteristics Respiratory Depth Respiratory Pattern Blood Pressure Blood Pressure [Right Arm] Blood Pressure Mean Blood Pressure Mean [Right Arm] Blood Pressure Position Blood Pressure Position [Right Arm] Pulse Oximetry 96 Oxygen Delivery Method Sepsis Recent Fever Within 48 Hours Sepsis New/Unexplained Change in Mental Status Sepsis Action Taken by Nursing Vital signs reviewed. The patient is noted to be hypertensive. General: Jittery, anxious, and flushed-appearing 54 y/o female, in no significant distress. HEENT: No scleral icterus, PERRLA, neck supple. Atraumatic. Cardiovascular: Tachycardic rate and regular rhythm, no extra sounds. Pulmonary: Clear to auscultation bilaterally, normal work of breathing. Abdomen: Soft, nontender, nondistended, positive bowel sounds. Musculoskeletal: Atraumatic, no peripheral edema. Neurologic: Patient awake alert and oriented x 3. Diffuse tremors. Skin: Warm, dry, no rash Course Course 1803: Past medical records reviewed. The patient was evaluated in room C10. A complete history and physical exam was performed. 2107: Upon reevaluation, the patient is resting comfortably. I discussed laboratory and radiographic results with her. She verbalized agreement of the treatment plan. The patient will be evaluated for further management and care. 2113: I reviewed the patient's case with Dr. Miller, [facility] Hospitalist. He will evaluate the patient for further management. Administered Medications Lorazepam (Ativan) 3 mg in 6 mls @ 4 mls/min IV ONCE PRN; Protocol PRN Reason: EtOH Withdrawl AWSS Score >=10 Stop: 02/20/20 23:18 Last Admin: 12/14/19 00:48 Dose: 4 mls/min Documented by: [id number] Lactated Ringer's (Lr) 1,000 mls @ 100 mls/hr IV .Q10H ONE Stop: 12/14/19 09:59 Last Admin: 12/14/19 00:32 Dose: 100 mls/hr Documented by: [id number] Discontinued Medications Diazepam (Valium) 10 mg PO NOW ONE Stop: 12/13/19 18:06 Last Admin: 12/13/19 18:15 Dose: 10 mg Documented by: [id number] Gabapentin (Neurontin) 1,200 mg PO NOW STA Stop: 12/13/19 22:24 Last Admin: 12/13/19 23:07 Dose: 1,200 mg Documented by: [id number] Lorazepam (Ativan) 2 mg in 4 mls @ 4 mls/min IV NOW STA Stop: 12/13/19 18:07 Last Admin: 12/13/19 18:29 Dose: 4 mls/min Documented by: [id number] Multivitamins 10 ml/ Thiamine HCl 100 mg/ Folic Acid 1 mg/Sodium Chloride 1,011.2 mls @ 1,011.2 mls/hr IV .Q1H ONE Stop: 12/13/19 19:10 Last Infusion: 12/14/19 00:16 Dose: 0 mls/hr Documented by: [id number] Admin: 12/13/19 18:53 Dose: 1,011.2 mls/hr Documented by: [id number] Lorazepam (Ativan) 2 mg in 4 mls @ 4 mls/min IV NOW STA Stop: 12/13/19 18:49 Last Admin: 12/13/19 18:53 Dose: 4 mls/min Documented by: [id number] Lactated Ringer's (Lr) 1,000 mls @ 500 mls/hr IV .Q2H ONE Stop: 12/13/19 23:21 Last Infusion: 12/14/19 00:10 Dose: 0 mls/hr Documented by: [id number] Admin: 12/13/19 22:45 Dose: 500 mls/hr Documented by: [id number] Magnesium Sulfate/Dextrose (Magnesium Sulfate / D5w) 1 gm in 100 mls @ 100 mls /hr IV ONE ONE Stop: 12/14/19 00:18 Last Infusion: 12/14/19 01:34 Dose: 0 mls/hr Documented by: [id number] Admin: 12/14/19 00:27 Dose: 100 mls/hr Documented by: [id number] Metoprolol Tartrate (Lopressor) 25 mg PO NOW STA Stop: 12/13/19 21:31 Last Admin: 12/13/19 22:47 Dose: Not Given Documented by: [id number] Metoprolol Tartrate (Lopressor) Confirm Administered Dose 50 mg .ROUTE .STK-MED ONE Stop: 12/13/19 22:23 Last Admin: 12/13/19 22:45 Dose: 25 mg Documented by: [id number] Potassium Chloride (Klor-Con M20) 40 meq PO NOW STA Stop: 12/13/19 21:34 Last Admin: 12/13/19 22:46 Dose: 40 meq Documented by: [id number] Critical Care Time Critical Care Time: Yes (35) I have personally spent greater than 35 minutes of critical care time in the direct management of this patient. This includes bedside care, interpretation of diagnostic studies, and testing, discussion with consultants, patient, and family members, and other required patient management activities. This 35 minutes is in excess of all separately billable procedures. Medical Decision Making Differential Diagnosis Differential diagnosis: Etiologies such as toxicological process, infection, hypoglycemia, electrolyte abnormalities, cardiac sources, intracerebral event, alcohol withdraw, neurologic process, as well as others were entertained. Medical Records Attestation: I reviewed the patient's medical records. Home Medications Current Medication List: was personally reviewed by me Laboratory Data Attestation: I reviewed the patient's lab results. Result diagrams: 12/13/19 18:16 12/13/19 18:16 Lab Results 12/13/19 12/13/19 12/13/19 Range/Units 18:16 18:16 18:16 WBC 4.61 L (4.8-10.8) K/uL RBC 4.39 (4.2-5.4) M/uL Hgb 15.0 (12.0-16.0) g/dL Hct 42.3 (37-47) % MCV 96.4 (80-100) fL MCH 34.2 H (25-34) pg MCHC 35.5 (32-36) g/dL RDW Std Deviation 47.1 H (36.4-46.3) fL RDW Coeff of Marybeth 13.2 (11.5-14.5) % Plt Count 148 (130-400) K/uL MPV 9.5 (7.4-10.4) fL Immature Gran % (Auto) 0.4 % Neut % (Auto) 68.1 % Lymph % (Auto) 16.3 % Sac % (Auto) 13.2 % Eos % (Auto) 1.1 % Baso % (Auto) 0.9 % Immature Gran # (Auto) 0.02 (0.00-0.02) K/uL Neut # (Auto) 3.14 (1.4-6.5) K/uL Lymph # (Auto) 0.75 L (1.2-3.4) K/uL Sac # (Auto) 0.61 H (0.11-0.59) K/uL Eos # (Auto) 0.05 (0-0.5) K/uL Baso # (Auto) 0.04 (0-0.2) K/uL PT (9.0-12.0) Seconds INR (0.9-1.1) Sodium 133 L (136-145) mmol/L Potassium 3.5 (3.5-5.1) mmol/L Chloride 97 L (98-107) mmol/L Carbon Dioxide 24 (21-32) mmol/L Anion Gap 12.0 H (3-11) BUN 7 (7-18) mg/dl Creatinine 0.86 (0.6-1.2) mg/dl Est Cr Clr Drug Dosing 85.2 ml/min Est GFR ( Amer) 90.0 Est GFR (Non-Af Amer) 77.7 BUN/Creatinine Ratio 8.7 L (10-20) Glucose 125 H (70-99) mg/dl Calcium 9.6 (8.5-10.1) mg/dl Magnesium 1.8 (1.8-2.4) mg/dl Total Bilirubin 1.4 H (0.2-1) mg/dl AST 386 H (15-37) U/L ALT 336 H (12-78) U/L Alkaline Phosphatase 118 H (45-117) U/L Total Protein 8.5 H (6.4-8.2) gm/dl Albumin 4.5 (3.4-5.0) gm/dl Globulin 4.0 (2.5-4.0) gm/dl Albumin/Globulin Ratio 1.1 (0.9-2) Lipase 138 (73-393) U/L TSH 4.750 H (0.300-4.500) uIu/ml Ethyl Alcohol mg/dL 13.0 H (0-3) mg/dl 12/13/19 Range/Units 18:17 WBC (4.8-10.8) K/uL RBC (4.2-5.4) M/uL Hgb (12.0-16.0) g/dL Hct (37-47) % MCV (80-100) fL MCH (25-34) pg MCHC (32-36) g/dL RDW Std Deviation (36.4-46.3) fL RDW Coeff of Marybeth (11.5-14.5) % Plt Count (130-400) K/uL MPV (7.4-10.4) fL Immature Gran % (Auto) % Neut % (Auto) % Lymph % (Auto) % Sac % (Auto) % Eos % (Auto) % Baso % (Auto) % Immature Gran # (Auto) (0.00-0.02) K/uL Neut # (Auto) (1.4-6.5) K/uL Lymph # (Auto) (1.2-3.4) K/uL Sac # (Auto) (0.11-0.59) K/uL Eos # (Auto) (0-0.5) K/uL Baso # (Auto) (0-0.2) K/uL PT 10.3 (9.0-12.0) Seconds INR 1.0 (0.9-1.1) Sodium (136-145) mmol/L Potassium (3.5-5.1) mmol/L Chloride (98-107) mmol/L Carbon Dioxide (21-32) mmol/L Anion Gap (3-11) BUN (7-18) mg/dl Creatinine (0.6-1.2) mg/dl Est Cr Clr Drug Dosing ml/min Est GFR ( Amer) Est GFR (Non-Af Amer) BUN/Creatinine Ratio (10-20) Glucose (70-99) mg/dl Calcium (8.5-10.1) mg/dl Magnesium (1.8-2.4) mg/dl Total Bilirubin (0.2-1) mg/dl AST (15-37) U/L ALT (12-78) U/L Alkaline Phosphatase (45-117) U/L Total Protein (6.4-8.2) gm/dl Albumin (3.4-5.0) gm/dl Globulin (2.5-4.0) gm/dl Albumin/Globulin Ratio (0.9-2) Lipase (73-393) U/L TSH (0.300-4.500) uIu/ml Ethyl Alcohol mg/dL (0-3) mg/dl ECG Data Additional Comments: An order for cardiac monitoring was placed. Patient is found to be in a sinus tachycardia at a rate of 131 bpm. Blood Pressure Blood Pressure Findings: Elevated blood pressure Blood Pressure Disposition: elevated BP felt to be situational MDM Narrative This patient was evaluated and appeared to be in some discomfort. She is noted to be tachycardic and hypertensive. 10 mg of valium po. IV access was obtained and the patient was then given Ativan 2 mg IV. Banana bag was ordered. Patient was observed with seizure precautions maintained. She did receive a second dose of IV Ativan 2 mg. Patient finally fell asleep and was observed on the slip dumper. Patient's laboratory work is consistent with chronic alcohol abuse. Liver enzymes are elevated. Patient was observed in the emergency department for several hours. Case was discussed with the [facility] hospitalist for admission and further management. Patient is agreeable with the plan. Impression & Plan Alcohol withdrawal Discharge Plan Visit Data *Final* Discharge Date/Time: 12/13/19 23:06 Chief Complaint: Alcohol Withdrawal Stated Complaint: ALCOHOL WITHDRAWL ED Provider: Krystin Garcia Discharge Problem: Alcohol withdrawal Patient Disposition: Admitted As Inpatient Discharge Instructions Interventions: ED Discharge Assessment Last Done: 12/13/19 23:06 Discharge Problem: Alcohol withdrawal Qualifiers: Complication of substance-induced condition: with unspecified complication Qualified Code(s): F10.239 - Alcohol dependence with withdrawal, unspecified The scribe's documentation has been prepared under my direction and personally reviewed by me in its entirety. I confirm that the note above accurately reflects all work, treatment, procedures, and medical decision making performed by me.
[2019-12-14] MEDS: LORazepam 3 MG/6 ML VIAL IV PRN ×3 (00:48→20:44)
[2019-12-14] MEDS ORDERED: MAGNESIUM SULFATE / D5W 1 GM/100 ML BAG IV ONE (01:24)
[2019-12-14] MEDS ORDERED: POTASSIUM CHLORIDE 20 MEQ TABCR PO STA (01:24)
[2019-12-14] MEDS ORDERED: METOPROLOL SUCC 25MG EXT REL TAB PO SCH ×2 (01:30→09:00)
[2019-12-14] MEDS: METOPROLOL SUCC 25MG EXT REL TAB PO SCH ×3 (01:46→20:06)
[2019-12-14 06:08] LABS: Estimated Average Glucose 131 mg/dl; Hemoglobin A1C 6.2 % (4.5-5.6)
[2019-12-14] MEDS: GABAPENTIN 600 MG TAB PO SCH ×3 (06:19→20:06)
[2019-12-14 06:30] LABS: Basophils # (auto) 0.02 K/uL (0-0.2); Basophils % (auto) 0.5 %; Eosinophils # (auto) 0.13 K/uL (0-0.5); Eosinophils % (auto) 3.3 %; Hematocrit (blood only) 39.9 % (37-47); Hemoglobin 13.9 g/dL (12.0-16.0); Immature Granulocytes # (auto) 0.01 K/uL (0.00-0.02); Immature Granulocytes % (auto) 0.3 %; Lymphocytes # (auto) 1.17 K/uL (1.2-3.4); Lymphocytes % (auto) 29.7 %; Mean Corpuscular Hemoglobin 33.9 pg (25-34); Mean Corpuscular Hgb Conc 34.8 g/dL (32-36); Mean Corpuscular Volume 97.3 fL (80-100); Mean Platelet Volume 9.9 fL (7.4-10.4); Monocytes % (auto) 12.7 %; Neutrophils # (auto) 2.11 K/uL (1.4-6.5); Neutrophils % (auto) 53.5 %; Platelet Count 132 K/uL (130-400); RDW Coefficient of Variation 13.3 % (11.5-14.5); RDW Standard Deviation 47.4 fL (36.4-46.3); White Blood Count 3.94 K/uL (4.8-10.8)
[2019-12-14 07:03] LABS: Albumin Level 3.6 gm/dl (3.4-5.0); BUN Creatinine Ratio 10.9 (10-20); Calcium 8.8 mg/dl (8.5-10.1); Creatinine Clr Calc Pharmacy 100.6 ml/min; Est GFR (African American) 109.7; Est GFR (Non-African American) 94.7; Potassium 3.7 mmol/L (3.5-5.1)
[2019-12-14 07:05] LABS: Bilirubin,Total 1.3 mg/dl (0.2-1); Globulin 3.5 gm/dl (2.5-4.0); Total Protein 7.1 gm/dl (6.4-8.2)
[2019-12-14] MEDS: ENOXAPARIN INJ 40 MG/0.4 ML SYR SQ SCH (08:06)
[2019-12-14] MEDS: FOLIC ACID 1 MG TAB PO SCH (08:07)
[2019-12-14] MEDS: MULTIVITAMIN TAB PO SCH (08:07)
[2019-12-14] MEDS: THIAMINE HCL 100 MG TAB PO SCH (08:07)
[2019-12-14] MEDS ORDERED: NALTREXONE HCL 50 MG TAB PO SCH (09:00)
[2019-12-14] MEDS: LORazepam 2 MG/4 ML VIAL IV PRN ×3 (10:56→17:24)
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
--- NOTE | 2019-12-14 14:24 | Hospitalist Progress Note ---
Date of Service December 14, 2019 Assessment & Plan (1) Alcohol withdrawal: Recently drinking 2-3 bottles of wine per day. Last drink was 2 days ago. Having moderately severe withdrawal symptoms. Continue alcohol withdrawal protocol with gabapentin. Continue thiamine, multivitamin. (2) Alcoholism: Ongoing counseling/support. (3) SVT (supraventricular tachycardia): History of paroxysmal SVT. Had a run last night that lasted for about 30 seconds. Metoprolol increased to 25 mg twice daily. (4) Elevated LFTs: Probably secondary to alcoholic hepatitis. Steroid therapy not indicated at this time. Improving. Follow. (5) Breast cancer: Recent breast biopsy demonstrated carcinoma. Due for postop check tomorrow. Will asked Dr. Kenyon or her associates to see patient during her hospital stay. (6) DVT prophylaxis: SQ enoxaparin. Ambulate. (7) Discharge planning issues: Anticipated need for alcohol rehabilitation after discharge. Family Medicine follow-up with Dr. Chaves. Subjective Recheck for alcohol withdrawal. Patient seen in their room around 1140. Last drink 2 days ago. Experiencing visual hallucinations, sweats, tremors, nausea. Review of Systems: Constitutional- no fever. Cardiac- no chest pain. Pulmonary- no cough or SOB. GI- no nausea, vomiting, diarrhea, melena, hematochezia. - no urinary symptoms. Otherwise, as noted above. Physical Exam Constitutional: no acute distress Eyes: + anicteric sclerae Respiratory: no respiratory distress Auscultation: lungs clear to auscultation bilaterally Cardiovascular: Rate/Rhythm: regular rate and regular rhythm Heart Sounds: no gallop, no murmur and no cardiac rub Vessels: no JVD Extremities: no calf tenderness and no edema Gastrointestinal (Abdomen): normal bowel sounds, soft, nontender, no hepatosplenomegaly Skin: no rashes, warm and dry Psychiatric: Orientation: alert and oriented x 3 Motor Behavior: + tremor Affect: + anxious affect Results & Data Vital Signs (Past 12 Hours) Vital Signs Temp Pulse Pulse Pulse Resp BP Pulse Ox 12/14/19 11:34 36.8 C 100 H 16 154/110 H 97 12/14/19 08:56 87 12/14/19 07:00 36.6 C 88 20 146/95 H 93 12/14/19 06:17 36.5 C 89 18 153/105 H 96 12/14/19 04:00 36.4 C L 89 20 127/84 97 Laboratory Results Laboratory Results - last 24 hr 12/13/19 12/14/19 12/14/19 18:17 05:58 05:58 WBC 3.94 L RBC 4.10 L Hgb 13.9 Hct 39.9 MCV 97.3 MCH 33.9 MCHC 34.8 RDW Std Deviation 47.4 H RDW Coeff of Marybeth 13.3 Plt Count 132 MPV 9.9 Immature Gran % (Auto) 0.3 Neut % (Auto) 53.5 Lymph % (Auto) 29.7 [place] % (Auto) 12.7 Eos % (Auto) 3.3 Baso % (Auto) 0.5 Immature Gran # (Auto) 0.01 Neut # (Auto) 2.11 Lymph # (Auto) 1.17 L [place] # (Auto) 0.50 Eos # (Auto) 0.13 Baso # (Auto) 0.02 Sodium 134 L Potassium 3.7 Chloride 101 Carbon Dioxide 25 Anion Gap 8.0 BUN 8 Creatinine 0.73 Est Cr Clr Drug Dosing 100.6 Est GFR ( Amer) 109.7 Est GFR (Non-Af Amer) 94.7 BUN/Creatinine Ratio 10.9 Glucose 121 H Estimat Average Glucose 131 Hemoglobin A1c 6.2 H Calcium 8.8 Total Bilirubin 1.3 H AST 224 H ALT 236 H Alkaline Phosphatase 95 Total Protein 7.1 Albumin 3.6 Globulin 3.5 Albumin/Globulin Ratio 1.0 (1) Alcohol withdrawal Complication of substance-induced condition: with unspecified complication Qualified Code(s): F10.239 - Alcohol dependence with withdrawal, unspecified
[2019-12-14] MEDS: cloNIDine HCL 0.1 MG TAB PO PRN (18:47)
[2019-12-14] MEDS: AMITRIPTYLINE HCL 50 MG TAB PO SCH (20:06)
[2019-12-14] MEDS ORDERED: VENLAFAXINE HCL XR 150 MG CAPXR PO SCH (21:00)
--- NOTE | 2019-12-14 23:11 | Electrocardiogram Report ---
Test Reason : Blood Pressure : / mmHG Vent. Rate : 108 BPM Atrial Rate : 108 BPM P-R Int : 168 ms QRS Dur : 092 ms QT Int : 348 ms P-R-T Axes : 052 005 035 degrees QTc Int : 466 ms Sinus tachycardia with occasional Premature ventricular complexes Otherwise normal ECG When compared with ECG of 25-NOV-2018 17:31, Fusion complexes are no longer Present Premature ventricular complexes are now Present Confirmed by Duran Sauceda ([id number]) on 12/14/2019 11:11:30 PM Referred By: REFERRED SELF Confirmed By:Duran Sauceda
[2019-12-15] MEDS: LORazepam 1 MG/2 ML VIAL IV PRN ×3 (01:04→20:14)
[2019-12-15] MEDS: GABAPENTIN 600 MG TAB PO SCH ×3 (05:34→23:40)
[2019-12-15 07:59] LABS: Albumin Level 3.4 gm/dl (3.4-5.0); BUN Creatinine Ratio 12.7 (10-20); Bilirubin Direct 0.3 mg/dl (0-0.2); Calcium 8.9 mg/dl (8.5-10.1); Creatinine Clr Calc Pharmacy 103.5 ml/min; Est GFR (African American) 113.5; Est GFR (Non-African American) 97.9; Magnesium 2.1 mg/dl (1.8-2.4); Potassium 3.7 mmol/L (3.5-5.1)
[2019-12-15 08:02] LABS: Bilirubin,Total 1.2 mg/dl (0.2-1); Globulin 3.3 gm/dl (2.5-4.0); Total Protein 6.7 gm/dl (6.4-8.2)
[2019-12-15] MEDS: THIAMINE HCL 100 MG TAB PO SCH (08:04)
[2019-12-15] MEDS: FOLIC ACID 1 MG TAB PO SCH (08:04)
[2019-12-15] MEDS: ENOXAPARIN INJ 40 MG/0.4 ML SYR SQ SCH (08:05)
[2019-12-15] MEDS: MULTIVITAMIN TAB PO SCH (08:05)
[2019-12-15] MEDS: METOPROLOL SUCC 25MG EXT REL TAB PO SCH ×2 (08:05→19:58)
--- NOTE | 2019-12-15 09:27 | Surgery Consultation ---
Date of Consultation December 15, 2019 Assessment & Plan (1) Breast cancer: DCIS of left breast s/p core needle biopsy on 11/30/2019 ER + [place] + Scheduled for outpatient consultation with Dr. Jacqui Kenyon today which was cancelled given admission/inpatient status Plan: Will need to discuss patient with Dr. Kenyon in regards to management of DCIS prior to or after inpatient rehab for alcohol withdrawal. Patient would prefer breast consultation and procedure/treatment prior to her rehab stay. Will contact Dr. Kenyon about recommendations given patient's current status/timing of procedure. Office is to contact patient today via cell phone to reschedule consultation depending on Dr. Kenyon's recommendations, availability, and OR scheduling (2) Breast hematoma after procedure: Hematoma with ecchymosis of the left breast s/p core needle biopsy Ecchymosis healing no signs of infection Recommend compression/sports bra, gentle massage to area, and heat/warm compresses plan as above History of Present Illness Reason for Consultation: post breast biopsy follow-up breast ecchymosis Requesting Physician: Rudy Lora MD Attending Physician: Rudy Lora MD History of Present Illness Brigid is a pleasant 54 year-old female who presented to emergency department for alcohol withdrawal on 12/13/2019. She has history of alcohol abuse dating back 5 years in which she underwent inpatient rehab and was sober but relapsed prior to [place]. Has been drinking 1-2 bottles of wine daily. Our services consulted for evaluation of left breast s/p core needle biopsy with recent diagnosis of DCIS. She had outpatient consultation scheduled today with Dr. Jacqui Kenyon at [facility]. Brigid states she has had bruising of the left breast since the biopsy. She states first day after biopsy she had pain but has not had pain since. Bruising looked worse and is improving. She states she recently found out her Mom is undergoing treatment for metastatic breast cancer but is unaware of further details. No prior breast procedures. Pathology showing DCIS of left breast that is [place] + and [place] +. Allergies Allergy/AdvReac Type Severity Reaction Status Date / Time tetracycline Allergy Mild MINOCYCLINE Verified 12/13/19 18:46 -RASH Sulfa (Sulfonamide Allergy Unknown PT DOESN'T Verified 12/13/19 18:46 Antibiotics) REMEMBER REACTION Home Medications Home Medications Medication Instructions Recorded Confirmed Type gabapentin 400 mg PO DAILY 11/25/18 12/13/19 History metoprolol succinate 25 mg PO DAILY 11/25/18 12/13/19 History naltrexone 100 mg PO BID 11/25/18 12/13/19 History amitriptyline 50 mg PO HS 12/13/19 12/13/19 History desvenlafaxine succinate [Pristiq] 50 mg PO DAILY 12/13/19 12/13/19 History omeprazole magnesium [Prilosec OTC] 20 mg PO DAILY PRN 12/13/19 12/13/19 History Patient History Medical History (Updated 12/15/19 @ 09:36 by Maryam Shepherd PA-C) Alcohol dependence Alcoholism Asthma (Chronic) Breast cancer Depression (Chronic) Dyslipidemia (Chronic) History of sleep apnea (Chronic) "resolved per patient" Insomnia (Chronic) Migraine (Chronic) PSVT (paroxysmal supraventricular tachycardia) (Chronic) Sleep apnea SVT (supraventricular tachycardia) (Chronic) Surgical History H/O colonoscopy (Chronic) "04/2016 perianal skin tag, normal colon" H/O esophagogastroduodenoscopy (Chronic) "07/04/2009- EUS exam- No choledocholithiasis, No masses appreciated in the entire pancreas. EGD exam- Normal examined duodenum. Bilious gastric fluid. Mild gastritis ? bilious etiology. Bx neg for H. pylori. Prominent fold just distal to GEJ. Bx- Squamocolumnar mucosa with mild carditis and hyperplastic changes. Negative for intestinal metaplasia and dysplasia. Medium sized hiatus hernia." On 03/10/17 15:26 Rita España wrote "07/04/2009- EUS exam- No choledocholithiasis, No masses appreciated in the entire pancreas. EGD exam- Normal examined duodenum. Bilious gastric fluid. Mild gastritis ? bilious etiology. This was biopsied to r/o H Pylori. Prominent fold just distal to GEJ. This was biopsied. Medium sized hiatus hernia." S/P laparoscopic cholecystectomy (Chronic) "2003" Family History (Updated 12/15/19 @ 09:31 by Maryam Shepherd PA-C) Mother Breast cancer Other Family history non-contributory Social History Preferred Language: [place] Communication Ability: Effective Dry Cure Worker Required: No Beliefs That Will Affect Care: None marital status: Current Living Situation: Family Current Living Situation Comment: adult son lives w/ her current occupational status: employed Feels Safe at Home: Yes Smoking Status: Never smoker Hx Alcohol Use: Yes Alcohol type: wine Hx Substance Use: No Physical Exam Constitutional: WD/WN, vitals as above cooperative; no acute distress tremors present due to alcohol withdrawal Respiratory: normal respiratory effort; no respiratory distress Chest (Breasts): Additional Comments: Left breast: There is ecchymosis of the left upper outer and lower breast light brown/green/yellow in coloration. There is palpable lump at site of core needle biopsy likely post biopsy changes and hematoma given ecchymosis. Nontender. She has subcutaneous soft mass of the 11 o'clock areolar region consistent with subcutaneous cyst. No induration or fluctuance. Skin: no rashes, warm and dry ecchymosis of left outer upper and lower breast Psychiatric: Orientation: alert and oriented x 3 Motor Behavior: + tremor Results & Data Vital Signs (Past 12 Hours) Vital Signs Temp Pulse Pulse Resp BP Pulse Ox 12/15/19 08:02 36.8 C 75 16 134/95 97 12/15/19 07:36 73 12/15/19 06:13 36.3 C L 74 16 124/86 100 12/15/19 00:24 36.7 C 89 18 135/90 99 12/15/19 00:00 80 Laboratory Results PER OUTPATIENT [facility] RECORDS LEFT BREAST CORE NEEDLE BIOPSY PATHOLOGY RESULTS 11/30/2019 A. Left breast, with calcifications, core needle biopsy: Ductal carcinoma in situ, low to intermediate nuclear grade, cribriform pattern. Calcifications associated with and in area of DCIS. Predictive markers will be reported in an addendum. Diagnostic Findings PER OUTPATIENT [facility] RECORDS Bilateral diagnostic mammogram with Ultrasound performed at [facility] on 11/25/2019 Findings Left MAMMOGRAM DIAGNOSTIC DAIN The left breast is heterogeneously dense, which may obscure small masses. Group of microcalcifications in the upper-outer middle depth. Mammographic findings are indeterminate. Stereotactic guided core biopsy would be helpful to obtain histology diagnosis. US BREAST LIMITED LEFT The breast tissue has a heterogeneous background echotexture. Targeted ultrasound demonstrates a 7 x 4 x 7 mm hypoechoic lesion within dermis at 11 o'clock areolar edge in the region of palpable lump as indicated by patient, findings are suggestive of a sebaceous cyst. Incidentally noted are subcentimeter simple cysts at 2 o'clock 4 cm from nipple and 2 o'clock 3 cm from nipple. No suspicious or solid mass is identified. Right MAMMOGRAM DIAGNOSTIC DAIN The right breast is heterogeneously dense, which may obscure small masses. US BREAST LIMITED RIGHT The breast tissue has a heterogeneous background echotexture. Targeted ultrasound demonstrates a 5 x 6 x 4 mm well-defined hypoechoic lesion at 6 o'clock a areolar edge, findings suggestive of focal fibrocystic change in cluster of microcysts. Short-term interval follow-up ultrasound would be helpful to ensure stability. Impression Indeterminate group of microcalcifications in the upper-outer middle depth. Stereotactic guided core biopsy would be helpful to obtain histology diagnosis. Short-term interval follow-up right breast ultrasound is advised in 6 months or sooner if warranted clinically. BI-RADS Category: 4 - Suspicious. Recommendation Stereotactic breast biopsy is recommended for the left breast. Ultrasound (mammogram if necessary) in 6 months is recommended for the right breast. The above findings and recommendations were discussed with and understood by the patient. Clinical management and follow up of "palpable lump" ie; sebaceous cyst is ad vised as deemed clinically necessary. The above findings and recommendations were discussed with and understood by the patient. Bilateral screening mammogram at [facility] on 10/21/2019 Findings The breasts are heterogeneously dense, which may obscure small masses. Right breast: Anterior depth lateral dain CC image 38 asymmetry versus summation measuring 7 mm. Left breast: Left periareolar skin thickening is stable mammographically, previously evaluated and felt to represent an epidermal inclusion cyst. Lateral middle depth incompletely characterized calcifications noted on CC view, with possible correlate middle depth nipple plane on MLO view. Two asymmetries versus summation upper outer quadrant MLO dain image 34. Impression Right: Anterior depth lateral dain CC image 38 asymmetry versus summation measuring 7 mm. Left: Lateral middle depth incompletely characterized calcifications noted on CC view, with possible correlate middle depth nipple plane on MLO view. Left: Two asymmetries versus summation upper outer quadrant MLO dain image 34. BI-RADS Category: 0 - Incomplete: Needs Additional Imaging Evaluation. Recommendation Callback diagnostic mammogram with ultrasound as needed is recommended for both breasts.
[2019-12-15] MEDS: cloNIDine HCL 0.1 MG TAB PO PRN (12:01)
[2019-12-15] MEDS: AMITRIPTYLINE HCL 50 MG TAB PO SCH (19:57)
--- NOTE | 2019-12-15 21:23 | Hospitalist Progress Note ---
Date of Service December 15, 2019 Assessment & Plan (1) Alcohol withdrawal: Recently drinking 2-3 bottles of wine per day. Last drink was 3 days ago. Having moderately severe withdrawal symptoms. Continue alcohol withdrawal protocol with gabapentin. Continue thiamine, multivitamin. (2) Alcoholism: Ongoing counseling/support. (3) SVT (supraventricular tachycardia): History of paroxysmal SVT. Had a run last night. Metoprolol increased to 25 mg twice daily. (4) Elevated LFTs: Laboratory Tests 12/13/19 12/14/19 12/15/19 18:16 05:58 06:38 Total Bilirubin 1.4 H 1.3 H 1.2 H AST 386 H 224 H 149 H ALT 336 H 236 H 179 H Alkaline Phosphatase 118 H 95 82 Probably secondary to alcoholic hepatitis. Steroid therapy not indicated at this time. Improving. Follow. (5) Breast cancer: Recent breast biopsy demonstrated carcinoma. Due for postop check tomorrow. Asked General Surgery to see patient for wound check. Will need to reschedule appt with Dr. Kenyon. (6) DVT prophylaxis: SQ enoxaparin. Ambulate. (7) Discharge planning issues: Anticipated need for alcohol rehabilitation after discharge. Family Medicine follow-up with Dr. Chaves. Subjective Recheck for alcohol withdrawal. Patient seen in their room around 1140. Last drink 3 days ago. Visual hallucinations last night. Ongoing sweats, tremors, nausea. Review of Systems: Constitutional- no fever. Cardiac- no chest pain. Pulmonary- no cough or SOB. GI- no nausea, vomiting, diarrhea, melena, hematochezia. - no urinary symptoms. Otherwise, as noted above. Physical Exam Constitutional: no acute distress Eyes: + anicteric sclerae Respiratory: no respiratory distress Auscultation: lungs clear to auscultation bilaterally Cardiovascular: Rate/Rhythm: regular rate and regular rhythm Heart Sounds: no gallop, no murmur and no cardiac rub Vessels: no JVD Extremities: no calf tenderness and no edema Gastrointestinal (Abdomen): normal bowel sounds, soft, nontender, no hepatosplenomegaly Skin: no rashes, warm and dry Psychiatric: Orientation: alert and oriented x 3 Motor Behavior: + tremor Affect: + anxious affect Results & Data Vital Signs (Past 12 Hours) Vital Signs Temp Pulse Pulse Pulse Resp BP Pulse Ox 12/15/19 19:29 37.7 C H 93 H 18 135/94 95 12/15/19 15:31 73 12/15/19 14:57 36.9 C 80 18 116/80 97 12/15/19 12:50 77 18 136/89 98 12/15/19 11:24 37.0 C 93 H 16 146/103 H 97 Laboratory Results Laboratory Results - last 24 hr 12/15/19 06:38 Sodium 135 L Potassium 3.7 Chloride 103 Carbon Dioxide 25 Anion Gap 7.0 BUN 9 Creatinine 0.71 Est Cr Clr Drug Dosing 103.5 Est GFR ( Amer) 113.5 Est GFR (Non-Af Amer) 97.9 BUN/Creatinine Ratio 12.7 Glucose 102 H Calcium 8.9 Magnesium 2.1 Total Bilirubin 1.2 H Direct Bilirubin 0.3 H AST 149 H ALT 179 H Alkaline Phosphatase 82 Total Protein 6.7 Albumin 3.4 Globulin 3.3 Albumin/Globulin Ratio 1.0 (1) Alcohol withdrawal Complication of substance-induced condition: with unspecified complication Qualified Code(s): F10.239 - Alcohol dependence with withdrawal, unspecified
[2019-12-15] MEDS: LORazepam 2 MG/4 ML VIAL IV PRN (22:33)
[2019-12-16 08:11] LABS: 7-Aminoclonaz, Confirm NEGATIVE ng/mL (<25); Hydro-Alp Ur, GC/MS NEGATIVE ng/mL (<25); Hydroxyethylflurazepam, Conf NEGATIVE ng/mL (<50); Hydroxytriazolam NEGATIVE ng/mL (<50); Lorazepam, Ur GC/MS >2000 ng/mL (<50); Nordiazepam, Confirm 213 ng/mL (<50); Oxazepam Ur, GC/MS NEGATIVE ng/mL (<50); Temazepam, Confirm 284 ng/mL (<50)
[2019-12-16] MEDS: METOPROLOL SUCC 25MG EXT REL TAB PO SCH ×2 (08:26→21:26)
[2019-12-16] MEDS: FOLIC ACID 1 MG TAB PO SCH (08:26)
[2019-12-16] MEDS: THIAMINE HCL 100 MG TAB PO SCH (08:26)
[2019-12-16] MEDS: ENOXAPARIN INJ 40 MG/0.4 ML SYR SQ SCH (08:26)
[2019-12-16] MEDS: MULTIVITAMIN TAB PO SCH (08:26)
[2019-12-16] MEDS: GABAPENTIN 600 MG TAB PO SCH (11:36)
[2019-12-16] MEDS: LORazepam 1 MG/2 ML VIAL IV PRN ×4 (12:09→21:37)
[2019-12-16] MEDS: cloNIDine HCL 0.1 MG TAB PO PRN (16:48)
[2019-12-16] MEDS: AMITRIPTYLINE HCL 50 MG TAB PO SCH (21:27)
[2019-12-16] MEDS ORDERED: ALUMINUM/MAGNESIUM/SIMETH (MAALOX MAX) 30 ML UDC PO PRN (21:28)
--- NOTE | 2019-12-16 21:31 | Hospitalist Progress Note ---
Date of Service December 16, 2019 Assessment & Plan (1) Alcohol withdrawal: Recently drinking 2-3 bottles of wine per day. Last drink was 4 days ago. Having moderately severe withdrawal symptoms. Continue alcohol withdrawal protocol with gabapentin. Continue thiamine, multivitamin. (2) Alcoholism: Ongoing counseling/support. (3) SVT (supraventricular tachycardia): History of paroxysmal SVT. Short run last night- asymptomatic. Metoprolol increased to 25 mg twice daily. (4) Elevated LFTs: Laboratory Tests 12/13/19 12/14/19 12/15/19 18:16 05:58 06:38 Total Bilirubin 1.4 H 1.3 H 1.2 H AST 386 H 224 H 149 H ALT 336 H 236 H 179 H Alkaline Phosphatase 118 H 95 82 Probably secondary to alcoholic hepatitis. Steroid therapy not indicated at this time. Improving. Follow. (5) Breast cancer: Recent breast biopsy demonstrated carcinoma. Due for postop check tomorrow. Seen by General Surgery for wound check. Will need to reschedule appt with Dr. Kenyon. (6) DVT prophylaxis: SQ enoxaparin. Ambulate. (7) Discharge planning issues: Anticipated need for alcohol rehabilitation after discharge. Patient considering options. Family Medicine follow-up with Dr. Chaves. Surgery follow-up with Dr. Kenyon for breast Ca. Subjective Recheck for alcohol withdrawal. Patient seen in their room around 1610. Last drink 4 days ago. Visual hallucinations resolved. Sweats, tremors improved. Review of Systems: Constitutional- no fever. Cardiac- no chest pain. Pulmonary- no cough or SOB. GI- no nausea, vomiting, diarrhea, melena, hematochezia. - no urinary symptoms. Otherwise, as noted above. Physical Exam Constitutional: no acute distress Eyes: + anicteric sclerae Respiratory: no respiratory distress Auscultation: lungs clear to auscultation bilaterally Cardiovascular: Rate/Rhythm: regular rate and regular rhythm Heart Sounds: no gallop, no murmur and no cardiac rub Vessels: no JVD Extremities: no calf tenderness and no edema Gastrointestinal (Abdomen): normal bowel sounds, soft, nontender, no hepatosplenomegaly Skin: no rashes, warm and dry Psychiatric: Orientation: alert and oriented x 3 Motor Behavior: + tremor (improved) Affect: + anxious affect Results & Data Vital Signs (Past 12 Hours) Vital Signs Temp Pulse Pulse Resp BP Pulse Ox 12/16/19 20:30 37.1 C 88 20 137/99 97 12/16/19 16:54 36.6 C 89 20 149/111 H 98 12/16/19 16:36 95 H 12/16/19 11:00 36.7 C 91 H 18 140/102 H 96 (1) Alcohol withdrawal Complication of substance-induced condition: with unspecified complication Qualified Code(s): F10.239 - Alcohol dependence with withdrawal, unspecified
[2019-12-16] MEDS: PANTOprazole 40 MG TAB PO SCH (21:53)
[2019-12-17] MEDS: LORazepam 1 MG/2 ML VIAL IV PRN (02:10)
[2019-12-17 06:44] LABS: Hemoglobin 13.3 g/dL (12.0-16.0); Mean Corpuscular Hemoglobin 33.4 pg (25-34); Mean Corpuscular Hgb Conc 34.1 g/dL (32-36); Mean Platelet Volume 9.5 fL (7.4-10.4); Platelet Count 136 K/uL (130-400); RDW Coefficient of Variation 12.9 % (11.5-14.5); RDW Standard Deviation 46.3 fL (36.4-46.3); Red Blood Count 3.98 M/uL (4.2-5.4); White Blood Count 3.25 K/uL (4.8-10.8)
[2019-12-17 07:23] LABS: Albumin Level 3.3 gm/dl (3.4-5.0); BUN Creatinine Ratio 19.4 (10-20); Bilirubin Direct 0.3 mg/dl (0-0.2); Calcium 9.1 mg/dl (8.5-10.1); Est GFR (African American) 113.5; Est GFR (Non-African American) 97.9; Potassium 3.4 mmol/L (3.5-5.1)
[2019-12-17 07:26] LABS: Bilirubin,Total 0.9 mg/dl (0.2-1); Globulin 3.4 gm/dl (2.5-4.0); Total Protein 6.7 gm/dl (6.4-8.2)
[2019-12-17] MEDS: PANTOprazole 40 MG TAB PO SCH ×2 (08:42→21:18)
[2019-12-17] MEDS: METOPROLOL SUCC 25MG EXT REL TAB PO SCH ×2 (08:43→21:18)
[2019-12-17] MEDS: FOLIC ACID 1 MG TAB PO SCH (08:43)
[2019-12-17] MEDS: ENOXAPARIN INJ 40 MG/0.4 ML SYR SQ SCH (08:43)
[2019-12-17] MEDS: THIAMINE HCL 100 MG TAB PO SCH (08:43)
[2019-12-17] MEDS: MULTIVITAMIN TAB PO SCH (08:43)
[2019-12-17] MEDS ORDERED: GABAPENTIN 600 MG TAB PO SCH (12:00)
--- NOTE | 2019-12-17 13:36 | Hospitalist Progress Note ---
Date of Service December 17, 2019 Assessment & Plan (1) Alcohol withdrawal: Recently drinking 2-3 bottles of wine per day. Last drink was 5 days ago. Having moderately severe withdrawal symptoms. Continue alcohol withdrawal protocol with gabapentin. Continue thiamine, multivitamin. (2) Alcoholism: Intermittent drinking over the years. At least [address] abdomen 03/10/17 showed hepatic steatosis, no stigmata of cirrhosis or portal hypertension. Most recently drinking 2-3 bottles of wine / day. Undergoing alcohol withdrawal as discussed above. Motivated to obtain rehab after discharge. Ongoing counseling/support. (3) Elevated LFTs: Laboratory Tests Laboratory Tests 12/13/19 12/17/19 18:16 06:25 Total Bilirubin 1.4 H 0.9 Direct Bilirubin 0.3 H AST 386 H 122 H ALT 336 H 160 H Alkaline Phosphatase 118 H Elevated LFT's probably secondary to alcoholic hepatitis. Will check hepatitis serologies and hepatic imaging for completeness. Madrey score low. Steroid therapy not indicated at this time. Improving. Follow. (4) SVT (supraventricular tachycardia): History of paroxysmal SVT. Short runs during this hospital stay, none in last 12 hours. Metoprolol increased to 25 mg twice daily. (5) Breast cancer: Recent breast biopsy demonstrated carcinoma. Due for postop check tomorrow. Seen by General Surgery for wound check. Will need to reschedule appt with Dr. Kenyon. (6) DVT prophylaxis: SQ enoxaparin. Ambulate. (7) Discharge planning issues: Anticipated need for alcohol rehabilitation after discharge. Patient considering options. Family Medicine follow-up with Dr. Chaves. Surgery follow-up with Dr. Kenyon for breast Ca. Subjective Recheck for alcohol withdrawal. Patient seen in their room around 0950. Last drink 5 days ago. Visual hallucinations resolved. Still has tremor. Ambulating. Review of Systems: Constitutional- no fever. Cardiac- no chest pain. Pulmonary- no cough or SOB. GI- no nausea, vomiting, diarrhea, melena, hematochezia. - no urinary symptoms. Otherwise, as noted above. Physical Exam Constitutional: no acute distress Eyes: + anicteric sclerae Respiratory: no respiratory distress Auscultation: lungs clear to auscultation bilaterally Cardiovascular: Rate/Rhythm: regular rate and regular rhythm Heart Sounds: no gallop, no murmur and no cardiac rub Vessels: no JVD Extremities: no calf tenderness and no edema Gastrointestinal (Abdomen): normal bowel sounds, soft, nontender, no hepatosplenomegaly Skin: no rashes, warm and dry Psychiatric: Orientation: alert and oriented x 3 Motor Behavior: + tremor (improved, still moderately severe) Affect: + anxious affect Results & Data Vital Signs (Past 12 Hours) Vital Signs Temp Pulse Pulse Resp BP BP Pulse Ox 12/17/19 11:00 36.4 C L 69 19 102/66 98 12/17/19 07:26 65 12/17/19 07:25 36.7 C 64 20 94/61 L 96 12/17/19 05:10 36.6 C 73 20 130/91 98 12/17/19 04:11 36.3 C L 67 14 121/83 98 Laboratory Results Laboratory Results - last 24 hr 12/17/19 12/17/19 06:25 06:25 WBC 3.25 L RBC 3.98 L Hgb 13.3 Hct 39.0 MCV 98.0 MCH 33.4 MCHC 34.1 RDW Std Deviation 46.3 RDW Coeff of Marybeth 12.9 Plt Count 136 MPV 9.5 Sodium 135 L Potassium 3.4 L Chloride 103 Carbon Dioxide 26 Anion Gap 7.0 BUN 14 D Creatinine 0.71 Est Cr Clr Drug Dosing 103.0 Est GFR ( Amer) 113.5 Est GFR (Non-Af Amer) 97.9 BUN/Creatinine Ratio 19.4 Glucose 108 H Calcium 9.1 Magnesium 2.0 Total Bilirubin 0.9 Direct Bilirubin 0.3 H AST 122 H ALT 160 H Alkaline Phosphatase 75 Total Protein 6.7 Albumin 3.3 L Globulin 3.4 Albumin/Globulin Ratio 1.0 (1) Alcohol withdrawal Complication of substance-induced condition: with unspecified complication Qualified Code(s): F10.239 - Alcohol dependence with withdrawal, unspecified
[2019-12-17 15:16] LABS: Hepatitis B Surface Antigen Neg (Neg)
[2019-12-17 15:44] LABS: Hepatitis C IgG 13Yrs+Old_Rflx Neg (Neg)
[2019-12-17] MEDS: LORazepam 2 MG/4 ML VIAL IV PRN (21:17)
[2019-12-17] MEDS: AMITRIPTYLINE HCL 50 MG TAB PO SCH (21:18)
[2019-12-18] MEDS: METOPROLOL SUCC 25MG EXT REL TAB PO SCH ×2 (08:28→20:23)
[2019-12-18] MEDS: MULTIVITAMIN TAB PO SCH (08:28)
[2019-12-18] MEDS: FOLIC ACID 1 MG TAB PO SCH (08:29)
[2019-12-18] MEDS: THIAMINE HCL 100 MG TAB PO SCH (08:29)
[2019-12-18] MEDS: PANTOprazole 40 MG TAB PO SCH ×2 (08:29→20:24)
[2019-12-18] MEDS: ENOXAPARIN INJ 40 MG/0.4 ML SYR SQ SCH (08:29)
[2019-12-18 10:31] LABS: Albumin Globulin Ratio 0.9 (0.9-2); Albumin Level 3.7 gm/dl (3.4-5.0); BUN Creatinine Ratio 18.9 (10-20); Calcium 9.5 mg/dl (8.5-10.1); Creatinine Clr Calc Pharmacy 86.6 ml/min; Est GFR (African American) 92.6; Est GFR (Non-African American) 79.9; Globulin 3.9 gm/dl (2.5-4.0); Magnesium 2.1 mg/dl (1.8-2.4); Phosphorus 4.4 mg/dl (2.5-4.9); Potassium 3.5 mmol/L (3.5-5.1); Total Protein 7.6 gm/dl (6.4-8.2)
[2019-12-18] MEDS: POTASSIUM CHLORIDE / WTR 10 MEQ/100 ML PLCT IV SCH ×2 (10:38→12:27)
--- NOTE | 2019-12-18 11:38 | Cardiology Consultation ---
Date of Consultation December 18, 2019 Assessment & Plan (1) Ventricular tachycardia: Asymptomatic Structurally normal heart on echocardiogram Believe this is due to her alcohol withdrawal and hyperadrenergic state. Her potassium is little on the low side as well which likely contributed. At this time we will continue the beta-vicky that is been initiated along with her medical treatment for alcohol withdrawal. Continue to monitor on telemetry while she is admitted. Would discharge with a two-week ZIO XT monitor, live version, for completeness sake. My office will arrange follow-up as an outpatient. The above was discussed with the patient at great length and she states that she understands and is in agreement with the above plan. (2) Alcohol withdrawal: Will defer to the primary team No cardiac contraindication for discharge to inpatient rehab treatment (3) PSVT (paroxysmal supraventricular tachycardia): Asymptomatic Continue beta-vicky History of Present Illness Reason for Consultation: Sustained ventricular tachycardia Requesting Physician: Dr. Lora Attending Physician: Rudy Lora MD History of Present Illness It was my pleasure to see Ms. Perla in consultation today December 18, 2019. She is a very pleasant 54-year-old woman who presented to [facility] on 12/13/2019 in acute alcohol withdrawal. She is been drinking heavily recently and this is led to some issues at work as well. She is also recently diagnosed with breast carcinoma and is scheduled to meet with surgery. Initially upon presentation she was very shaky and agitated having the familiar symptoms of withdrawal that she has had in the past. She has had occasional palpitations with this but she states nothing severe. She also denies any chest pain, shortness of breath, lightheadedness, dizziness or syncope. She was previously seen by our office for PSVT and was on metoprolol however she has not taken this in some time now. Currently she states that she feels great. She had no symptoms with her 1 minute run of ventricular tachycardia this a.m. Her nurse was in the room with her at the time. Allergies Allergy/AdvReac Type Severity Reaction Status Date / Time tetracycline Allergy Mild MINOCYCLINE Verified 12/13/19 18:46 -RASH Sulfa (Sulfonamide Allergy Unknown PT DOESN'T Verified 12/13/19 18:46 Antibiotics) REMEMBER REACTION Home Medications Home Medications Medication Instructions Recorded Confirmed Type gabapentin 400 mg PO DAILY 11/25/18 12/13/19 History metoprolol succinate 25 mg PO DAILY 11/25/18 12/13/19 History naltrexone 100 mg PO BID 11/25/18 12/13/19 History amitriptyline 50 mg PO HS 12/13/19 12/13/19 History desvenlafaxine succinate [Pristiq] 50 mg PO DAILY 12/13/19 12/13/19 History omeprazole magnesium [Prilosec OTC] 20 mg PO DAILY PRN 12/13/19 12/13/19 History Patient History Medical History Alcohol dependence Alcoholism Asthma (Chronic) Breast cancer Depression (Chronic) Dyslipidemia (Chronic) History of sleep apnea (Chronic) "resolved per patient" Insomnia (Chronic) Migraine (Chronic) PSVT (paroxysmal supraventricular tachycardia) (Chronic) Sleep apnea SVT (supraventricular tachycardia) (Chronic) Surgical History H/O colonoscopy (Chronic) "04/2016 perianal skin tag, normal colon" H/O esophagogastroduodenoscopy (Chronic) "07/04/2009- EUS exam- No choledocholithiasis, No masses appreciated in the entire pancreas. EGD exam- Normal examined duodenum. Bilious gastric fluid. Mild gastritis ? bilious etiology. Bx neg for H. pylori. Prominent fold just distal to GEJ. Bx- Squamocolumnar mucosa with mild carditis and hyperplastic changes. Negative for intestinal metaplasia and dysplasia. Medium sized hiatus hernia." On 03/10/17 15:26 Rita España wrote "07/04/2009- EUS exam- No choledocholithiasis, No masses appreciated in the entire pancreas. EGD exam- Normal examined duodenum. Bilious gastric fluid. Mild gastritis ? bilious etiology. This was biopsied to r/o H Pylori. Prominent fold just distal to GEJ. This was biopsied. Medium sized hiatus hernia." S/P laparoscopic cholecystectomy (Chronic) "2003" Family History Mother Breast cancer Other Family history non-contributory Social History Preferred Language: Albanian Communication Ability: Effective Db2 Developer Required: No Beliefs That Will Affect Care: None marital status: Current Living Situation: Family Current Living Situation Comment: adult son lives w/ her current occupational status: employed Feels Safe at Home: Yes Smoking Status: Never smoker Hx Alcohol Use: Yes Alcohol type: wine Hx Substance Use: No Review of Systems Review of Systems: All systems reviewed & are unremarkable except as noted in HPI & below Physical Exam Physical Exam: Physical Exam: General: Awake, alert and oriented x 3. No acute distress. HEENT: Normocephalic, atraumatic. Pupils equal, round and reactive to light and accommodation. Extraocular muscles are intact. Anicteric sclera. Moist mucous membranes. Neck: No JVD. No bruit. Cardiovascular: Regular. No S-4. Normal S-1 and S-2. No S-3. No murmurs, rubs or gallops. Pulmonary: Clear to auscultation bilaterally. No rales, rhonchi, or wheezing. Abdomen: Bowel sounds x 4, soft. No rebound, guarding or tenderness. No organomegaly. Extremities: No clubbing, cyanosis or edema. +2 pedal pulses bilaterally. Skin: Warm and dry. Results & Data Vital Signs (Past 12 Hours) Vital Signs Temp Pulse Pulse Resp BP BP Pulse Ox 12/18/19 07:43 36.8 C 73 16 115/73 95 12/18/19 07:27 70 12/18/19 04:00 36.5 C 75 18 115/71 96 12/18/19 01:56 98 H 12/17/19 23:44 36.9 C 94 H 18 137/93 98 (1) Alcohol withdrawal Complication of substance-induced condition: with unspecified complication Qualified Code(s): F10.239 - Alcohol dependence with withdrawal, unspecified
[2019-12-18] MEDS: GABAPENTIN 100 MG CAP PO SCH ×3 (13:44→20:57)
[2019-12-18] MEDS ORDERED: POTASSIUM CHLORIDE 20 MEQ TABCR PO ONE (15:39)
--- NOTE | 2019-12-18 15:48 | Hospitalist Progress Note ---
Date of Service December 18, 2019 Assessment & Plan (1) Alcohol withdrawal: Recently drinking 2-3 bottles of wine per day. Last drink was 6 days ago. Experienced moderately severe withdrawal symptoms with tremors, sweats, nausea, visual hallucinations. Continue alcohol withdrawal protocol with gabapentin. Continue thiamine, multivitamin. (2) Alcoholism: Intermittent drinking over the years. At least [address] abdomen 03/10/17 showed hepatic steatosis, no stigmata of cirrhosis or portal hypertension. Most recently drinking 2-3 bottles of wine / day. Undergoing alcohol withdrawal as discussed above. Motivated to obtain rehab after discharge. Ongoing counseling/support. (3) Elevated LFTs: Elevated LFT's probably secondary to alcoholic hepatitis. Checking hepatitis serologies and hepatic imaging for completeness. Hep B surface Ag neg, Hep C AB neg, Hep A IgM pending. Madrey score low. Steroid therapy not indicated at this time. Improving. Follow. (4) SVT (supraventricular tachycardia): History of paroxysmal SVT. Short runs during this hospital stay, none in last 12 hours. Metoprolol increased to 25 mg twice daily. (5) Ventricular tachycardia: Nonsustained VT > 1 min, asymptomatic. K borderline low. Mg OK. Check echo. Consult Cardiology. Continue cardiac monitoring. (6) Breast cancer: Recent breast biopsy demonstrated carcinoma. Due for postop check tomorrow. Seen by General Surgery for wound check. Will need to reschedule appt with Dr. Kenyon. (7) DVT prophylaxis: SQ enoxaparin. Ambulate. (8) Discharge planning issues: Anticipated need for alcohol rehabilitation after discharge. Patient considering options. Family Medicine follow-up with Dr. Chaves. Surgery follow-up with Dr. Kenyon for breast Ca. Subjective Recheck for alcohol withdrawal. Patient seen in their room around 0920. Last drink 6 days ago. Visual hallucinations resolved. Tremor improved. No further nausea or diaphoresis. Ambulating. Had run of nonsustained VT this morning that lasted for greater that 1 minute, no associated symptoms. Review of Systems: Constitutional- no fever. Cardiac- no chest pain. Pulmonary- no cough or SOB. GI- no nausea, vomiting, diarrhea, melena, hematochezia. - no urinary symptoms. Otherwise, as noted above. Physical Exam Constitutional: no acute distress Eyes: + anicteric sclerae Respiratory: no respiratory distress Auscultation: lungs clear to auscultation bilaterally Cardiovascular: Rate/Rhythm: regular rate and regular rhythm Heart Sounds: no gallop, no murmur and no cardiac rub Vessels: no JVD Extremities: no calf tenderness and no edema Gastrointestinal (Abdomen): normal bowel sounds, soft, nontender, no hepa tosplenomegaly Skin: no rashes, warm and dry Psychiatric: Orientation: alert and oriented x 3 Motor Behavior: + tremor (improved, still moderately severe) Results & Data Vital Signs (Past 12 Hours) Vital Signs Temp Pulse Pulse Resp BP BP Pulse Ox 12/18/19 15:13 68 12/18/19 11:41 37.0 C 82 16 137/92 100 12/18/19 07:43 36.8 C 73 16 115/73 95 12/18/19 07:27 70 12/18/19 04:00 36.5 C 75 18 115/71 96 Laboratory Results Laboratory Results - last 24 hr 12/17/19 12/18/19 14:12 09:47 Sodium 136 Potassium 3.5 Chloride 102 Carbon Dioxide 27 Anion Gap 7.0 BUN 16 Creatinine 0.84 Est Cr Clr Drug Dosing 86.6 Est GFR ( Amer) 92.6 Est GFR (Non-Af Amer) 79.9 BUN/Creatinine Ratio 18.9 Glucose 106 H Calcium 9.5 Phosphorus 4.4 Magnesium 2.1 Total Bilirubin 1.0 AST 128 H ALT 180 H Alkaline Phosphatase 93 Total Protein 7.6 Albumin 3.7 Globulin 3.9 Albumin/Globulin Ratio 0.9 Specimen Hemolysis Hepatitis C Antibody Neg (1) Alcohol withdrawal Complication of substance-induced condition: with unspecified complication Qualified Code(s): F10.239 - Alcohol dependence with withdrawal, unspecified
[2019-12-18] MEDS: LORazepam 1 MG/2 ML VIAL IV PRN (17:08)
[2019-12-18] MEDS: AMITRIPTYLINE HCL 50 MG TAB PO SCH (20:23)
[2019-12-18] MEDS: POTASSIUM CHLORIDE 20 MEQ TABCR PO SCH (20:24)
[2019-12-19 07:46] LABS: Albumin Globulin Ratio 1.1 (0.9-2); Albumin Level 3.6 gm/dl (3.4-5.0); BUN Creatinine Ratio 19.7 (10-20); Bilirubin Direct 0.2 mg/dl (0-0.2); Bilirubin,Total 0.8 mg/dl (0.2-1); Calcium 9.6 mg/dl (8.5-10.1); Creatinine Clr Calc Pharmacy 90.2 ml/min; Est GFR (African American) 96.8; Est GFR (Non-African American) 83.5; Globulin 3.4 gm/dl (2.5-4.0); Magnesium 1.9 mg/dl (1.8-2.4); Potassium 4.3 mmol/L (3.5-5.1)
[2019-12-19] MEDS: PANTOprazole 40 MG TAB PO SCH ×2 (08:06→20:04)
[2019-12-19] MEDS: ENOXAPARIN INJ 40 MG/0.4 ML SYR SQ SCH (08:06)
[2019-12-19] MEDS: MULTIVITAMIN TAB PO SCH (08:06)
[2019-12-19] MEDS: FOLIC ACID 1 MG TAB PO SCH (08:06)
[2019-12-19] MEDS: POTASSIUM CHLORIDE 20 MEQ TABCR PO SCH ×2 (08:06→20:03)
[2019-12-19] MEDS: GABAPENTIN 100 MG CAP PO SCH ×4 (08:06→20:03)
[2019-12-19] MEDS: THIAMINE HCL 100 MG TAB PO SCH (08:07)
[2019-12-19] MEDS: METOPROLOL SUCC 25MG EXT REL TAB PO SCH ×2 (08:07→20:04)
[2019-12-19] MEDS: LORazepam 2 MG/4 ML VIAL IV PRN ×2 (10:57→18:00)
--- NOTE | 2019-12-19 12:30 | Cardiology Progress Note ---
Date of Service December 19, 2019 Assessment & Plan (1) Ventricular tachycardia: Asymptomatic Structurally normal heart on echocardiogram Believe this is due to her alcohol withdrawal and hyperadrenergic state. Her potassium is little on the low side as well which likely contributed. At this time we will continue the beta-vicky that is been initiated along with her medical treatment for alcohol withdrawal. No recurrence of ventricular arrhythmias or ectopy overnight. But given this event she will require ZIO AT monitor as an outpatient. She is being directly admitted to [facility] which is in the [id number] system. The monitor should be mailed to that address in her name and she should be contacted for follow-up through the rehabs may number not her personal cell phone. My office will arrange this. We will also arrange follow-up in our clinic prior to her breast surgery. Okay to discharge from a cardiac standpoint. (2) Alcohol withdrawal: Will defer to the primary team No cardiac contraindication for discharge to inpatient rehab treatment (3) PSVT (paroxysmal supraventricular tachycardia): Asymptomatic Continue beta-vicky Subjective Patient seen and examined, states that she feels great. She has no complaints from a cardiac standpoint and specifically denies any chest pain, shortness of breath, palpitations, lightheadedness, dizziness or syncope. She is anxious for discharge to rehab. Telemetry reviewed: Normal sinus rhythm without significant ectopy or arrhythmias overnight. Review of Systems Review of Systems: All systems reviewed & are unremarkable except as noted in HPI & below Physical Exam Physical Exam: Physical Exam: General: Awake, alert and oriented x 3. No acute distress. HEENT: Normocephalic, atraumatic. Pupils equal, round and reactive to light and accommodation. Extraocular muscles are intact. Anicteric sclera. Moist mucous membranes. Neck: No JVD. No bruit. Cardiovascular: Regular. No S-4. Normal S-1 and S-2. No S-3. No murmurs, rubs or gallops. Pulmonary: Clear to auscultation bilaterally. No rales, rhonchi, or wheezing. Abdomen: Bowel sounds x 4, soft. No rebound, guarding or tenderness. No organomegaly. Extremities: No clubbing, cyanosis or edema. +2 pedal pulses bilaterally. Skin: Warm and dry. Results & Data Vital Signs (Past 12 Hours) Vital Signs Temp Pulse Pulse Pulse Resp BP BP 01/27/20 11:36 37.1 C 81 20 127/89 12/19/19 07:36 37.1 C 83 20 127/85 12/19/19 07:35 78 12/19/19 02:58 36.6 C 85 15 131/88 12/19/19 00:39 71 Pulse Ox 12/19/19 11:36 97 12/19/19 07:36 97 12/19/19 07:35 12/19/19 02:58 100 12/19/19 00:39 (1) Alcohol withdrawal Complication of substance-induced condition: with unspecified complication Qualified Code(s): F10.239 - Alcohol dependence with withdrawal, unspecified
--- NOTE | 2019-12-19 15:54 | Ultrasound Report ---
US liver HISTORY: 54 years-old Female elevated LFT's acutely elevated LFTs COMPARISON: CT abdomen and pelvis 03/10/2017 TECHNIQUE: Multiple real-time sonographic images of the right upper quadrant abdomen were obtained as sessing grayscale appearance and color flow FINDINGS: Pancreas is mostly obscured by bowel gas. The imaged portions appear unremarkable. Increased echogeni city of the liver with poor through transmission. Liver also appears mildly enlarged measuring up to 18 cm. No intrahepatic biliary ductal dilation, focal mass lesion or marginal nodularity to suggest c irrhosis. Cholecystectomy. Common bile duct is mildly dilated, 8 mm which is likely on a postsurgical basis. Visualized right kidney appears unremarkable. IMPRESSION: 1. Cholecystectomy. Mild dilation of the common bile duct is likely on a postsurgical basis. 2. Hepatomegaly with hepatic steatosis. ACT 112: Negative or not required by law. The above report was generated using voice recognition software. It may contain grammatical, syntax o r spelling errors. Electronically signed by: Syed Moseley M.D. 12/19/2019 3:53 PM
--- NOTE | 2019-12-19 18:37 | Hospitalist Progress Note ---
Date of Service December 19, 2019 Assessment & Plan (1) Alcohol withdrawal: Recently drinking 2-3 bottles of wine per day. Last drink was 7 days ago. Experienced moderately severe withdrawal symptoms with tremors, sweats, nausea, visual hallucinations. Received alcohol withdrawal protocol with gabapentin. Continue thiamine, multivitamin. (2) Alcoholism: Intermittent drinking over the years. At least [address] abdomen 03/10/17 showed hepatic steatosis, no stigmata of cirrhosis or portal hypertension. Most recently drinking 2-3 bottles of wine / day. Undergoing alcohol withdrawal as discussed above. Motivated to obtain rehab after discharge. Ongoing counseling/support. (3) Elevated LFTs: Elevated LFT's probably secondary to alcoholic hepatitis. Checking hepatitis serologies and hepatic imaging for completeness. Hep B surface Ag neg, Hep C AB neg, Hep A IgM pending. Madrey score low. Steroid therapy not indicated at this time. Check US liver. Improving. Follow. (4) Dysphagia: Having intermittent dysphagia to solids. Best not to pursue endoscopic evaluation at this time due to alcohol withdrawal. Check barium esophagram before discharge. (5) SVT (supraventricular tachycardia): History of paroxysmal SVT. Short runs during this hospital stay, none in last 12 hours. Metoprolol increased to 25 mg twice daily. (6) Ventricular tachycardia: Nonsustained VT > 1 min, asymptomatic. K borderline low. Mg OK. Cardiology consulted. Echo did not show any structural abnormalities. Maintain normal electrolytes. Continue metoprolol. Outpatient cardiac monitoring reocmmended. (7) Breast cancer: Recent breast biopsy demonstrated carcinoma. Seen by General Surgery for wound check. Will need to reschedule appt with Dr. Kenyon. (8) Depression: Seen by Psychiatry. They recommend discharge on previous doses of desvenlafaxine and gabapentin. (9) DVT prophylaxis: SQ enoxaparin. Ambulate. (10) Discharge planning issues: Anticipated need for alcohol rehabilitation after discharge. Patient considering options. Family Medicine follow-up with Dr. Chaves. Surgery follow-up with Dr. Kenyon for breast Ca. Subjective Recheck for alcohol withdrawal. Patient seen in their room around 1350. Last drink 7 days ago. Withdrawal symptoms improved. No hallucinations, sweats, nausea, vomiting. Tremor improved. No arrhythmias last night or this morning. Review of Systems: Constitutional- no fever. Cardiac- no chest pain. Pulmonary- no cough or SOB. GI- no nausea, vomiting, diarrhea, melena, hematochezia. - no urinary symptoms. Otherwise, as noted above. Physical Exam Constitutional: no acute distress Eyes: + anicteric sclerae Respiratory: no respiratory distress Auscultation: lungs clear to auscultation bilaterally Cardiovascular: Rate/Rhythm: regular rate and regular rhythm Heart Sounds: no gallop, no murmur and no cardiac rub Vessels: no JVD Extremities: no calf tenderness and no edema Gastrointestinal (Abdomen): normal bowel sounds, soft, nontender, no hepatosplenomegaly Skin: no rashes, warm and dry Psychiatric: Orientation: alert and oriented x 3 Motor Behavior: + tremor (improved) Affect: + anxious affect Results & Data Vital Signs (Past 12 Hours) Vital Signs Temp Pulse Pulse Resp BP BP Pulse Ox 12/19/19 16:01 100 H 12/19/19 15:18 37.2 C 63 18 137/98 98 12/19/19 11:36 37.1 C 81 20 127/89 97 12/19/19 07:36 37.1 C 83 20 127/85 97 12/19/19 07:35 78 Laboratory Results Laboratory Results - last 24 hr 12/19/19 06:05 Sodium 138 Potassium 4.3 D Chloride 105 Carbon Dioxide 27 Anion Gap 6.0 BUN 16 Creatinine 0.81 Est Cr Clr Drug Dosing 90.2 Est GFR ( Amer) 96.8 Est GFR (Non-Af Amer) 83.5 BUN/Creatinine Ratio 19.7 Glucose 120 H Calcium 9.6 Magnesium 1.9 Total Bilirubin 0.8 Direct Bilirubin 0.2 AST 93 H ALT 150 H Alkaline Phosphatase 72 Total Protein 7.0 Albumin 3.6 Globulin 3.4 Albumin/Globulin Ratio 1.1 (1) Alcohol withdrawal Complication of substance-induced condition: with unspecified complication Qualified Code(s): F10.239 - Alcohol dependence with withdrawal, unspecified
[2019-12-19] MEDS: AMITRIPTYLINE HCL 50 MG TAB PO SCH (20:03)
[2019-12-20 06:34] LABS: Hematocrit (blood only) 38.4 % (37-47); Hemoglobin 13.3 g/dL (12.0-16.0); Mean Corpuscular Hemoglobin 33.8 pg (25-34); Mean Corpuscular Hgb Conc 34.6 g/dL (32-36); Mean Corpuscular Volume 97.7 fL (80-100); Mean Platelet Volume 9.5 fL (7.4-10.4); Platelet Count 201 K/uL (130-400); RDW Coefficient of Variation 12.9 % (11.5-14.5); RDW Standard Deviation 45.8 fL (36.4-46.3); Red Blood Count 3.93 M/uL (4.2-5.4); White Blood Count 3.53 K/uL (4.8-10.8)
[2019-12-20 07:29] LABS: Albumin Globulin Ratio 0.9 (0.9-2); Albumin Level 3.2 gm/dl (3.4-5.0); BUN Creatinine Ratio 20.4 (10-20); Bilirubin Direct 0.2 mg/dl (0-0.2); Bilirubin,Total 0.7 mg/dl (0.2-1); Calcium 8.7 mg/dl (8.5-10.1); Creatinine Clr Calc Pharmacy 85.2 ml/min; Est GFR (Non-African American) 77.7; Globulin 3.6 gm/dl (2.5-4.0); Magnesium 1.7 mg/dl (1.8-2.4); Potassium 3.4 mmol/L (3.5-5.1); Total Protein 6.8 gm/dl (6.4-8.2)
--- NOTE | 2019-12-20 11:30 | Cardiology Progress Note ---
Date of Service December 20, 2019 Assessment & Plan (1) Ventricular tachycardia: Asymptomatic Structurally normal heart on echocardiogram Believe this is due to her alcohol withdrawal and hyperadrenergic state. Her potassium is little on the low side as well which likely contributed. At this time we will continue the beta-vicky that is been initiated along with her medical treatment for alcohol withdrawal. No recurrence of ventricular arrhythmias or ectopy in over 48 hours. But given this event she will require ZIO AT monitor as an outpatient. She is being directly admitted to [facility] which is in the [facility]. The monitor should be mailed to that address in her name and she should be contacted for follow-up through the [facility] may number not her personal cell phone. My office will arrange this. We will also arrange follow-up in our clinic prior to her breast surgery. She states that she is in agreement with the above plan and will follow-up as scheduled. Okay to discharge from a cardiac standpoint. (2) Alcohol withdrawal: Will defer to the primary team No cardiac contraindication for discharge to inpatient rehab treatment (3) PSVT (paroxysmal supraventricular tachycardia): Asymptomatic Continue beta-vicky Subjective Patient seen and examined states that she feels great. She is anxious for tr ansfer to rehab and has no physical complaints at this time. She specifically denies experiencing any chest pain, shortness of breath, palpitations, lightheadedness, dizziness or syncope. Telemetry reviewed: Normal sinus rhythm without arrhythmia or significant ectopy. Review of Systems Review of Systems: All systems reviewed & are unremarkable except as noted in HPI & below Physical Exam Physical Exam: Physical Exam: General: Awake, alert and oriented x 3. No acute distress. HEENT: Normocephalic, atraumatic. Pupils equal, round and reactive to light and accommodation. Extraocular muscles are intact. Anicteric sclera. Moist mucous membranes. Neck: No JVD. No bruit. Cardiovascular: Regular. No S-4. Normal S-1 and S-2. No S-3. No murmurs, rubs or gallops. Pulmonary: Clear to auscultation bilaterally. No rales, rhonchi, or wheezing. Abdomen: Bowel sounds x 4, soft. No rebound, guarding or tenderness. No organomegaly. Extremities: No clubbing, cyanosis or edema. +2 pedal pulses bilaterally. Skin: Warm and dry. Results & Data Vital Signs (Past 12 Hours) Vital Signs Temp Pulse Pulse Pulse Resp BP BP 12/20/19 07:33 37 C 76 16 113/77 12/20/19 07:20 75 12/20/19 06:31 90 12/20/19 03:44 36.7 C 79 16 112/74 12/20/19 00:04 37.4 C 91 H 16 135/96 Pulse Ox 12/20/19 07:33 97 12/20/19 07:20 12/20/19 06:31 12/20/19 03:44 98 12/20/19 00:04 98 (1) Alcohol withdrawal Complication of substance-induced condition: with unspecified complication Qualified Code(s): F10.239 - Alcohol dependence with withdrawal, unspecified
--- NOTE | 2019-12-20 11:31 | Fluoroscopy Report ---
FL barium swallow w/air RTN CLINICAL HISTORY: 54 years-old Female with dysphagia. Chronic dysphagia with reported history of hia [place] hernia TECHNIQUE: Barium contrast and effervescent crystals were administered to the patient under fluorosco pic examination. A barium tablet was also administered. Multiple images were obtained and submitted f or review. FLUOROSCOPY TIME: 1.0 minutes 25 images were submitted. COMPARISON: CT abdomen and pelvis 03/10/2017. FINDINGS: During deglutition, contrast material flowed freely through the cervical esophagus. No filling defec t or mucosal abnormality is identified. No abnormal stricturing or mass effect is seen. The mid to distal esophagus is well coated and distended. No abnormal stricturing or mucosal abnormality is adal ntified. No significant reflux or large hiatal hernia was demonstrated during the exam. The GE junc tion is normal in appearance. Barium tablet passed freely from the esophagus into the stomach. Modera te mid and distal esophageal dysmotility with delayed esophageal emptying. IMPRESSION: 1. Moderate mid and distal esophageal dysmotility with delayed esophageal emptying. 2. No gastroesophageal reflux. 3. Previously noted hiatal hernia not identified on today's study. ACT 112: Negative or not required by law. The above report was generated using voice recognition software. It may contain grammatical, syntax o r spelling errors. Electronically signed by: Syed Moseley M.D. 12/20/2019 11:30 AM
[2019-12-20] MEDS: THIAMINE HCL 100 MG TAB PO SCH (11:39)
[2019-12-20] MEDS: FOLIC ACID 1 MG TAB PO SCH (11:39)
[2019-12-20] MEDS: GABAPENTIN 100 MG CAP PO SCH (11:39)
[2019-12-20] MEDS: PANTOprazole 40 MG TAB PO SCH (11:39)
[2019-12-20] MEDS: POTASSIUM CHLORIDE 20 MEQ TABCR PO SCH (11:40)
[2019-12-20] MEDS: METOPROLOL SUCC 25MG EXT REL TAB PO SCH (11:41)
[2019-12-20] MEDS: MULTIVITAMIN TAB PO SCH (11:41)
[2019-12-20] MEDS: ENOXAPARIN INJ 40 MG/0.4 ML SYR SQ SCH (11:42)
--- NOTE | 2019-12-20 11:43 | Communication Note ---
Date of Service: December 20, 2019 Laboratory Results - last 24 hr 12/20/19 12/20/19 06:00 06:00 WBC 3.53 L RBC 3.93 L Hgb 13.3 Hct 38.4 MCV 97.7 MCH 33.8 MCHC 34.6 RDW Std Deviation 45.8 RDW Coeff of Marybeth 12.9 Plt Count 201 MPV 9.5 Sodium 136 Potassium 3.4 L D Chloride 106 Carbon Dioxide 23 Anion Gap 7.0 BUN 18 Creatinine 0.86 Est Cr Clr Drug Dosing 85.2 Est GFR ( Amer) 90.0 Est GFR (Non-Af Amer) 77.7 BUN/Creatinine Ratio 20.4 H Glucose 137 H Calcium 8.7 Magnesium 1.7 L Total Bilirubin 0.7 Direct Bilirubin 0.2 AST 77 H ALT 137 H Alkaline Phosphatase 74 Total Protein 6.8 Albumin 3.2 L Globulin 3.6 Albumin/Globulin Ratio 0.9
[2019-12-20 11:57] VITALS: BP 131/97; PULSE 101; TEMP 97.9; O2SAT 99
--- NOTE | 2019-12-20 12:15 | Hospitalist Progress Note ---
Date of Service December 20, 2019 Assessment & Plan (1) Alcohol withdrawal: Recently drinking 2-3 bottles of wine per day. Last drink was 7 days ago. Experienced moderately severe withdrawal symptoms with tremors, sweats, nausea, visual hallucinations. Received alcohol withdrawal protocol with gabapentin. Continue thiamine, multivitamin. (2) Alcoholism: Intermittent drinking over the years. At least [address] abdomen 03/10/17 showed hepatic steatosis, no stigmata of cirrhosis or portal hypertension. Most recently drinking 2-3 bottles of wine / day. Undergoing alcohol withdrawal as discussed above. US liver- fatty liver, no apparent cirrhosis / portal hypertension / ascites. Motivated to obtain rehab after discharge. Ongoing counseling/support. (3) Elevated LFTs: Laboratory Tests 12/13/19 12/20/19 18:16 06:00 Total Bilirubin 1.4 H 0.7 AST 386 H 77 H ALT 336 H 137 H Alkaline Phosphatase 118 H 74 Elevated LFT's probably secondary to alcoholic hepatitis- improved. Checking hepatitis serologies and hepatic imaging for completeness. Hep B surface Ag neg, Hep C AB neg, Hep A IgM pending. Madrey score low. Steroid therapy not indicated at this time. US liver- fatty liver, s/p cholecystectomy. (4) Dysphagia: Having intermittent dysphagia to solids. Best not to pursue endoscopic evaluation at this time due to alcohol withdrawal. Barium esophagram demonstrated esophageal dysmotility. (5) SVT (supraventricular tachycardia): History of paroxysmal SVT. Short runs during this hospital stay, none in last 12 hours. Metoprolol increased to 25 mg twice daily. Maintain normal electrolytes. (6) Ventricular tachycardia: Nonsustained VT > 1 min, asymptomatic. K borderline low. Mg OK. Cardiology consulted. Echo did not show any structural abnormalities. Maintain normal electrolytes. Continue metoprolol. Outpatient cardiac monitoring recommended; advised not to drive until results known. (7) Hypokalemia: K as low as 3.4. Received replacement. Discharge on KCl 10 mEq PO TID. Recheck BMP in 1 week and then as clinically indicated. (8) Breast cancer: Recent breast biopsy demonstrated carcinoma. Seen by General Surgery for wound check. Exam day of discharge shows 1 cm mass left upper quadrant (? hematoma) with surrounding ecchymoses. Will need to reschedule appt with Dr. Kenyon. (9) Depression: Seen by Psychiatry. They recommend discharge on previous doses of outpatient meds. (10) Abnormal thyroid function test: TSH 4.750. Doubt clinical significant. Elevated TSH could be secondary to acute illness. Rx not indicated. Recheck periodically. (11) DVT prophylaxis: Received SQ enoxaparin. Ambulate. (12) Discharge planning issues: Needs alcohol rehabilitation after discharge. Arrangements being made for transfer to [facility]. Family Medicine follow-up with Dr. Chaves. Surgery follow-up with Dr. Kenyon for breast Ca. Cardiology follow-up with Dr. Healy. Subjective Recheck for alcohol withdrawal. Patient seen in their room around 1150. Last drink 8 days ago. Withdrawal symptoms essentially resolved. No hallucinations, sweats, nausea, vomiting. Tremor improved. No CP,SOB, palpitations. No arrhythmias x 48 hrs Pt concerned about breast bx site. Review of Systems: Constitutional- no fever. Cardiac- as noted above. Pulmonary- no cough or SOB. GI- no nausea, vomiting, diarrhea, melena, hematochezia. - no urinary symptoms. Otherwise, as noted above. Physical Exam Constitutional: no acute distress Eyes: + anicteric sclerae Respiratory: no respiratory distress Auscultation: lungs clear to auscultation bilaterally Cardiovascular: Rate/Rhythm: regular rate and regular rhythm Heart Sounds: no gallop, no murmur and no cardiac rub Vessels: no JVD Extremities: no calf tenderness and no edema Chest (Breasts): Chest: + mass (1 cm mass left upper quadrant with surrounding ecchymoses) Gastrointestinal (Abdomen): normal bowel sounds, soft, nontender, no hepatosplenomegaly Skin: no rashes, warm and dry Psychiatric: Orientation: alert and oriented x 3 Motor Behavior: + tremor ( improved) Results & Data Vital Signs (Past 12 Hours) Vital Signs Temp Pulse Pulse Pulse Resp BP BP 12/20/19 11:56 36.6 C 101 H 18 131/97 12/20/19 07:33 37 C 76 16 113/77 12/20/19 07:20 75 12/20/19 06:31 90 12/20/19 03:44 36.7 C 79 16 112/74 Pulse Ox 12/20/19 11:56 99 12/20/19 07:33 97 12/20/19 07:20 12/20/19 06:31 12/20/19 03:44 98 Laboratory Results Laboratory Results - last 24 hr 12/20/19 12/20/19 06:00 06:00 WBC 3.53 L RBC 3.93 L Hgb 13.3 Hct 38.4 MCV 97.7 MCH 33.8 MCHC 34.6 RDW Std Deviation 45.8 RDW Coeff of Marybeth 12.9 Plt Count 201 MPV 9.5 Sodium 136 Potassium 3.4 L D Chloride 106 Carbon Dioxide 23 Anion Gap 7.0 BUN 18 Creatinine 0.86 Est Cr Clr Drug Dosing 85.2 Est GFR ( Amer) 90.0 Est GFR (Non-Af Amer) 77.7 BUN/Creatinine Ratio 20.4 H Glucose 137 H Calcium 8.7 Magnesium 1.7 L Total Bilirubin 0.7 Direct Bilirubin 0.2 AST 77 H ALT 137 H Alkaline Phosphatase 74 Total Protein 6.8 Albumin 3.2 L Globulin 3.6 Albumin/Globulin Ratio 0.9 Diagnostic Findings US LIVER FINDINGS: Pancreas is mostly obscured by bowel gas. The imaged portions appear unremarkable. Increased echogenicity of the liver with poor through transmission. Liver also appears mildly enlarged measuring up to 18 cm. No intrahepatic biliary ductal dilation, focal mass lesion or marginal nodularity to suggest cirrhosis. Cholecystectomy. Common bile duct is mildly dilated, 8 mm which is likely on a postsurgical basis. Visualized right kidney appears unremarkable. IMPRESSION: 1. Cholecystectomy. Mild dilation of the common bile duct is likely on a postsurgical basis. 2. Hepatomegaly with hepatic steatosis. ACT 112: Negative or not required by law. The above report was generated using voice recognition software. It may contain grammatical, syntax or spelling errors. Electronically signed by: Syed Moseley M.D. 12/19/2019 3:53 PM BARIUM ESOPHAGRAM FINDINGS: During deglutition, contrast material flowed freely through the cervical esophagus. No filling defect or mucosal abnormality is identified. No abnormal stricturing or mass effect is seen. The mid to distal esophagus is well coated and distended. No abnormal stricturing or mucosal abnormality is identified. No significant reflux or large hiatal hernia was demonstrated during the exam. The GE junction is normal in appearance. Barium tablet passed freely from the esophagus into the stomach. Moderate mid and distal esophageal dysmotility with delayed esophageal emptying. IMPRESSION: 1. Moderate mid and distal esophageal dysmotility with delayed esophageal emptying. 2. No gastroesophageal reflux. 3. Previously noted hiatal hernia not identified on today's study. ACT 112: Negative or not required by law. The above report was generated using voice recognition software. It may contain grammatical, syntax or spelling errors. Electronically signed by: Syed Moseley M.D. 12/20/2019 11:30 AM (1) Alcohol withdrawal Complication of substance-induced condition: with unspecified complication Qualified Code(s): F10.239 - Alcohol dependence with withdrawal, unspecified
--- NOTE | 2019-12-20 12:47 | Discharge Summary ---
Date of Service Date of Admission: 12/13/19 Date of Discharge: 12/20/19 Admission HPI Per Admitting Provider Brigid Perla is a 54-year-old female admitted medically on 12/13/2019 after presenting to the ED with request for alcohol detoxification. Psychiatric consultation was requested to evaluate the patient for depression. External medication records suggest the patient is currently being prescribed several psychotropic medications. It appears that she is being seen at [facility] by TOMER Yadav. Hospital documentation suggests that the patient has a history of alcohol abuse, with previous inpatient drug and alcohol rehabilitation stays. ER documentation suggests the patient has recently relapsed in her alcohol use, and is facing disciplinary actions through work with recommendation for inpatient rehab in order to maintain her job. Patient is cooperative with psychiatric evaluation. She provides verbal consent to allow Irene Akins PA-C to observe today's encounter. Patient informs this provider that she struggled for 5 years with alcohol abuse. She states that she sought inpatient drug and alcohol rehabilitation treatment in 2014 for these concerns, and is maintained relative sobriety since that point. Patient indicates that "just before October" she relapsed, and has been consuming 2-3 bottles of wine on a daily basis for nearly 2 months. The patient does admit to a history of depression and "a profound anxiety problem", along with symptoms suggestive of PTSD. Patient states that generally the alcohol is helpful for her anxiety, "and herein lies the problem." Patient states that she has been working with TOMER Yadav at [facility] for the past year, and has been working with a therapist, Gisella Long, for the past 2 years. Prior to relapse in alcohol use, patient states that her mood and anxiety were predominantly stable, though medication adjustments were being pursued. Patient does state that she had previously been prescribed venlafaxine, which was recently discontinued in favor of desvenlafaxine due to sexual side effects. Patient states that she was prescribed desvenlafaxine about 2 weeks ago, but was only compliant with the medication for 2 to 3 days before becoming inconsistent with all medication dosing. Patient does admit to difficulty falling and maintaining sleep recently. She also indicates appetite suppression, with a recent 10 pound weight loss. Patient does endorse anxiety, which she rates as a 7/10. She denies auditory or visual hallucinations at baseline, but does admit to seeing children and dogs in her room as she is going through alcohol detoxification. Patient denies suicidal ideation. 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 Patient has been active in researching various drug and alcohol rehabilitation programs, and is awaiting additional information from her insurance before referrals are requested. Patient is willing to receive additional information regarding inpatient rehab programs that are geared towards working professionals. She does indicate that she is satisfied with her current psychiatric medication regimen, but understands she needs to be compliant with the medications in order for them to be effective. Patient does wish to return to her current outpatient psychiatric providers when she has completed her rehabilitation program. Patient does admit to interest in focusing on trauma-informed therapy after discharge. Pt denies SI, HI, SIB, A/V hallucinations, paranoia, almas/hypomania, other symptoms more suggestive of a bipolar presentation, OCD, eating disorder, and other specific psychiatric symptoms. Principal Diagnosis alcohol withdrawal SECONDARY DIAGNOSES: alcoholism paroxysmal supraventricular tachycardia nonsustained ventricular tachycardia hypokalemia elevated LFT's fatty liver dysphagia- esophageal dysmotility breast cancer Discharge Data Allergies Allergy/AdvReac Type Severity Reaction Status Date / Time tetracycline Allergy Mild MINOCYCLINE Verified 12/13/19 18:46 -RASH Sulfa (Sulfonamide Allergy Unknown PT DOESN'T Verified 12/13/19 18:46 Antibiotics) REMEMBER REACTION Consultations 12/13/19 21:14 ED Decision to Admit Stat 12/13/19 23:19 Consult Case Management - Discharge Planning Routine Consult Psychiatry Routine 12/15/19 07:00 Consult General Surgery Routine 12/18/19 10:01 Consult Cardiology Routine Ordered Studies 12/19/19 14:05 US liver Routine 12/20/19 11:00 FL barium swallow w/air RTN Routine Hospital Course (1) Alcohol withdrawal: Recently drinking 2-3 bottles of wine per day. Last drink was 7 days ago. Experienced moderately severe withdrawal symptoms with tremors, sweats, nausea, visual hallucinations. Received alcohol withdrawal protocol with gabapentin. Continue thiamine, multivitamin. (2) Alcoholism: Intermittent drinking over the years. At least [address] abdomen 03/10/17 showed hepatic steatosis, no stigmata of cirrhosis or portal hypertension. Most recently drinking 2-3 bottles of wine / day. Undergoing alcohol withdrawal as discussed above. US liver- fatty liver, no apparent cirrhosis / portal hypertension / ascites. Motivated to obtain rehab after discharge. Ongoing counseling/support. (3) Elevated LFTs: Laboratory Tests 12/13/19 12/20/19 18:16 06:00 Total Bilirubin 1.4 H 0.7 AST 386 H 77 H ALT 336 H 137 H Alkaline Phosphatase 118 H 74 Elevated LFT's probably secondary to alcoholic hepatitis- improved. Checking hepatitis serologies and hepatic imaging for completeness. Hep B surface Ag neg, Hep C AB neg, Hep A IgM pending. Madrey score low. Steroid therapy not indicated at this time. US liver- fatty liver, s/p cholecystectomy. (4) Dysphagia: Having intermittent dysphagia to solids. Best not to pursue endoscopic evaluation at this time due to alcohol withdrawal. Barium esophagram demonstrated esophageal dysmotility. (5) SVT (supraventricular tachycardia): History of paroxysmal SVT. Short runs during this hospital stay, none in last 12 hours. Metoprolol increased to 25 mg twice daily. Maintain normal electrolytes. (6) Ventricular tachycardia: Nonsustained ventricular tachycardia, asymptomatic. K borderline low. Mg OK. Cardiology consulted. Echo did not show any structural abnormalities. Maintain normal electrolytes. Continue metoprolol. Outpatient cardiac monitoring recommended; advised not to drive until results known. (7) Hypokalemia: K as low as 3.4. Received replacement. Discharge on KCl 10 mEq PO TID. Recheck BMP in 1 week and then as clinically indicated. (8) Breast cancer: Recent breast biopsy demonstrated carcinoma. Seen by General Surgery for wound check. Exam day of discharge shows 1 cm mass left upper quadrant (? hematoma) with surrounding ecchymoses. It was felt that rehab for alcoholism should be completed before proceeding with breast surgery. To see Dr. Kenyon for preop visit in near future- may need pass for [facility] for that appointment. (9) Depression: Seen by Psychiatry. They recommend discharge on previous doses of outpatient meds. (10) Abnormal thyroid function test: TSH 4.750. Doubt clinical significant. Elevated TSH could be secondary to acute illness. Rx not indicated. Recheck periodically. (11) DVT prophylaxis: Received SQ enoxaparin. Ambulate. (12) Discharge planning issues: Needs alcohol rehabilitation after discharge. Arrangements being made for transfer to [facility]. Family Medicine follow-up with Dr. Chaves. Surgery follow-up with Dr. Kenyon for breast Ca. Cardiology follow-up with Dr. Healy. Thank you for receiving this patient in transfer. Please call or TigerText if you have any questions. Rudy Lora Total Time Total Time Spent Total Time Spent (In Minutes): 50 Discharge Plan Discharge Items Patient Disposition: Drug & Alcohol Rehab Reason For Visit: alcohol withdrawal Discharge Diagnosis: alcohol withdrawal Activity: As commented below Driving/Machine Use: no driving until OK with Cardiology Non-emergency contact: Primary Care Provider, Hospitalist and Piping Supervisor Call non-emergency contact if: you have any medication questions and your symptoms worsen Follow-up/Referrals: Harpreet Healy DO [Physician] - (Office will contact you with appointment.) Jacqui Kenyon MD [Physician] - (Office will contact you with appointment.) Aidan Chaves DO [Primary Care Provider] - (Please arrange for follow-up after discharge from [facility].) Diet: Heart Healthy Pending Studies at Discharge: No Stand-Alone Forms: My [facility] Skilled Items Patient informed of condition?: Yes DNR: No Discharge Level of Care: Other Communicable Disease: No Discharge Prognosis: Improving Lines: None Urinary Catheter: No Medications and DC Order Prescriptions: New metoprolol succinate 25 mg Tablet Extended Release 24 Hr 25 mg PO BID Qty: 60 RF: 0 folic acid 1 mg Tablet 1 mg PO QAM Qty: 30 RF: 0 multivitamin [Daily-Arlene] Tablet 1 tab PO QAM Qty: 30 RF: 0 thiamine HCl (vitamin B1) [Vitamin B-1] 100 mg Tablet 100 mg PO QAM Qty: 30 RF: 0 potassium chloride 10 mEq tablet extended release 10 meq PO TID Qty: 90 RF: 0 Continued amitriptyline 50 mg tablet 50 mg PO HS RF: 0 Prilosec OTC 20 mg Tablet,Delayed Release (Dr/Ec) 20 mg PO DAILY RF: 0 desvenlafaxine succinate [Pristiq] 50 mg Tablet Extended Release 24 Hr 50 mg PO DAILY RF: 0 gabapentin 100 mg Capsule 100 mg PO QID RF: 0 Discontinued naltrexone 50 mg Tablet 100 mg PO BID RF: 0 metoprolol succinate 25 mg Tablet Extended Release 24 Hr 25 mg PO DAILY RF: 0 Krames/Other Patient Handouts: A1C Admission Data Admit Date/Time: 01/21/20 22:25 Attending Provider: Rudy Lora Admit Provider: Melquiades Miller Primary Care Provider: Aidan Chaves Other Providers: Melquiades Miller ; Fartun Hutchison ; Arnoldo Holland ; Harpreet Healy Other Interventions: Discharge Summary Assessment (RN) Last Done: 12/20/19 12:28
[2019-12-20 14:14] LABS: Hepatitis A Antibody IgM NON-REACTIVE (NON-REACTIVE); Hepatitis B Core Antibody IgM NON-REACTIVE (NON-REACTIVE)
== END 2019-12-20 13:09 | disposition alcohol treatment (31) | DRG 897 ==
LOC: ED 17:08 → 2N 22:25

== ENCOUNTER 2020-06-14 10:33 | Inpatient (IN) ==
[2020-06-14] MEDS ORDERED: ADENOSINE IV SOLN 3 MG/ML 2 ML VIAL IV ONE (10:52)
[2020-06-14] MEDS ORDERED: SODIUM CHLORIDE 0.9% 1000ML 1,000 ML IV ONE (11:05)
[2020-06-14] MEDS ORDERED: MULTI-VITAMIN INFUSION 10 ML, THIAMINE HCL 100 MG, FOLIC ACID 1 MG in SODIUM CHLORIDE 0... IV ONE (11:05)
[2020-06-14] MEDS ORDERED: ADENOSINE IV SOLN 3 MG/ML 2 ML VIAL IV STA ×2 (11:06)
[2020-06-14] MEDS ORDERED: MAGNESIUM SULFATE / D5W 1 GM/100 ML BAG IV STA (11:06)
--- NOTE | 2020-06-14 11:14 | Emergency Department Note ---
History of Present Illness General Chief complaint: Arrhythmia/Palpitations Stated complaint: heart palpitations Time Seen by Provider: 06/14/20 10:43 Source: patient, RN notes reviewed and old records reviewed Mode of arrival: ambulatory Limitations: no limitations History of Present Illness Provider complaint: palpitations Onset (ago): day(s) 3 Location: chest Radiation: non-radiation Severity: mild Pain Consistency: + intermittent Maximum Pain Intensity: 3 Current Pain Intensity: 3 Quality: + aching Relieved By: + none Exacerbated By: + movement Associated symptoms: + denies other symptoms; no fever/chills Treatments prior to arrival: other (Metoprolol x2) This is a 54-year-old female who presents emergency department complaining of rapid heart rate. The patient reports for the past 3 days she has been feeling palpitations. Of note the patient recently started breast cancer treatment and was concerned about the interaction between tamoxifen and amitriptyline. She w as concerned that this could start heart palpitations. The patient is also a recovering alcoholic however reports she began drinking about 30 days ago. She last had a glass of wine this morning. She describes the pain as a burning sensation and she feels extremely short of breath. She describes doubling up on her metoprolol this morning without any success of stopping the palpitations. She reports movement makes the pain worse and resting makes the pain better. Home Medications Home Medications Medication Instructions Recorded Confirmed Type amitriptyline 50 mg PO HS 12/13/19 06/14/20 History desvenlafaxine succinate [Pristiq] 50 mg PO QAM 12/13/19 06/14/20 History omeprazole magnesium [Prilosec OTC] 20 mg PO QAM 12/13/19 06/14/20 History atorvastatin 40 mg PO QAM 04/08/20 06/14/20 History doxycycline hyclate 100 mg PO BID 04/08/20 06/14/20 History albuterol sulfate 90 mcg/actuation 2 puffs INH Q4H PRN gm 04/10/20 06/14/20 History aerosol inhaler gabapentin 100 mg capsule 200 mg PO QID PRN 04/10/20 06/14/20 History montelukast 10 mg tablet 10 mg PO HS tab 04/10/20 06/14/20 History metoprolol succinate 25 mg 25 mg PO BID tab 04/30/20 06/14/20 History tablet,extended release 24 hr tamoxifen 20 mg PO QAM 06/14/20 06/14/20 History Allergies Allergy/AdvReac Type Severity Reaction Status Date / Time levothyroxine Allergy Severe facial Unverified 06/14/20 11:48 swelling minocycline [From Minocin] Allergy Mild Rash Verified 06/14/20 11:41 Sulfa (Sulfonamide Allergy Unknown PT DOESN'T Verified 06/14/20 11:41 Antibiotics) REMEMBER REACTION Past Med/Surg History Medical History Abnormal thyroid function test started on 25mcg levothyroxine Abrasion, corneal (Inactive) Alcohol dependence Alcohol withdrawal (Inactive) Asthma (Inactive) Breast hematoma after procedure Left breast after biopsy in 11/2019 Depression (Inactive) 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) Dyslipidemia (Inactive) Dysphagia Barium Swallow Negative - no problem since stopping drinking Elevated LFTs History of History of sleep apnea (Inactive) "resolved per patient" Hypokalemia "history of while drinking" Insomnia (Inactive) Migraine (Inactive) PSVT (paroxysmal supraventricular tachycardia) (Inactive) with alcohol withdrawl Rosacea Ventricular tachycardia from alcohol withdrawl Surgical History H/O colonoscopy (Inactive) 05/01/2016 - perianal skin tag, normal colon H/O esophagogastroduodenoscopy (Inactive) 07/04/2009 - EUS exam- No choledocholithiasis, No masses appreciated in the entire pancreas. EGD exam- Normal examined duodenum. Bilious gastric fluid. Mild gastritis ? bilious etiology. Bx neg for H. pylori. Prominent fold just distal to GEJ. Bx- Squamocolumnar mucosa with mild carditis and hyperplastic changes. Negative for intestinal metaplasia and dysplasia. Medium sized hiatus hernia." On 03/10/17 15:26 Rita España wrote "07/04/2009- EUS exam- No choledocholithiasis, No masses appreciated in the entire pancreas. EGD exam- Normal examined duodenum. Bilious gastric fluid. Mild gastritis ? bilious etiology. This was biopsied to r/o H Pylori. Prominent fold just distal to GEJ. This was biopsied. Medium sized hiatus hernia." History of breast biopsy 11/30/2019 - Left Breast 02/08/2020 - Right Breast History of breast lump/mass excision 02/15/2020 - Right Breast History of dilation and curettage 2003 - s/p miscarriage History of lumpectomy of left breast 02/15/2020 History of lumpectomy of right breast 03/28/2020 History of mandibular surgery 1986 History of surgery 05/07/2016 - Anal Tag Removal S/P laparoscopic cholecystectomy (Inactive) 02/23/2004 Family History (Updated 04/09/20 @ 15:24 by Rissa Sun, CARMEN) Mother Breast cancer, Onset Age: 76 Currently battling metastatic breast cancer Grandmother (Paternal) , Passed age 93 of stomach cancer No problems noted. Grandfather (Maternal) , Passed age 72 of colon cancer No problems noted. Father , Passed age 67 of complications from menigioma No problems noted. Aunt Breast cancer, Onset Age: 34 Alive and well Aunt Breast cancer, Onset Age: 62 alive and well Aunt Breast cancer, Onset Age: 62 Alive and well Brother Stroke Dementia Sister No problems noted. Son No problems noted. 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 Feels Safe at Home: Yes Childhood Exposure to Second-Hand Smoke: Yes (Mom ) caffeine: Yes (daily ) during the past year weight has: remained stable Dental Care, Regularly: Yes Review of Systems A total of 10 systems reviewed and were otherwise negative Physical Exam Vital Signs Vital Signs - 24 hr 06/14/20 10:43 06/14/20 11:06 06/14/20 11:08 Temperature 36.7 C Temperature Source Oral Pulse Rate 196 H Pulse Rate [Left Finger] 96 H Pulse Rhythm Regular Pulse Strength Normal Respiratory Rate 22 22 Respiratory Effort / Characteristics Non-Labored Spontaneous Respiratory Depth Normal Respiratory Pattern Regular Blood Pressure 77/64 L Blood Pressure [Left Arm] 138/106 H Blood Pressure Mean 68 Blood Pressure Mean [Left Arm] 116 Blood Pressure Position Sitting Pulse Oximetry 98 99 100 Oxygen Delivery Method Room Air Nasal Cannula Nasal Cannula Oxygen Flow Rate 3 3 Sepsis Recent Fever Within 48 Hours No Sepsis New/Unexplained Change in Mental Status No Sepsis Action Taken by Nursing No Action Required 06/14/20 11:20 Temperature Temperature Source Pulse Rate Pulse Rate [Left Finger] 95 H Pulse Rhythm Pulse Strength Respiratory Rate 24 Respiratory Effort / Characteristics Respiratory Depth Respiratory Pattern Blood Pressure Blood Pressure [Left Arm] 127/98 Blood Pressure Mean Blood Pressure Mean [Left Arm] 107 Blood Pressure Position Pulse Oximetry 100 Oxygen Delivery Method Nasal Cannula Oxygen Flow Rate 3 Sepsis Recent Fever Within 48 Hours Sepsis New/Unexplained Change in Mental Status Sepsis Action Taken by Nursing VITAL SIGNS - Vital signs and nursing notes were reviewed. GENERAL - 54-year-old female appearing stated age who is in mild distress. Communicates well with provider and answers questions appropriately. SKIN - diaphoretic HEAD - NC/AT. EYES - PERRL with EOMI bilaterally. Sclera anicteric. Palpebral conjunctiva pink and moist with no injection noted. EARS - No deformities of external structures noted on gross examination bilaterally. No pain elicited with palpation of the tragus bilaterally. External auditory canals without discharge or otorrhea. Tympanic membranes pearly bains wi thout retraction or bulging. No fluid or purulent material visualized behind the TM. Handle of malleus, umbo, cone of light, pars tensa/flaccid all easily visualized. NOSE - Midline and without cyanosis. No epistaxis or purulent drainage noted. Septum midline without deviation or septal hematoma noted. MOUTH/OROPHARYNX - Without perioral cyanosis. Buccal mucosa pink and moist and without leukoplakia. Tongue midline with equal elevation of palate bilaterally. No tonsillar hypertrophy, erythema, or exudates noted. dentition noted. NECK - Neck with FROM. Supple to palpation. lymphadenopathy noted. No nuchal rigidity. LUNGS - Chest wall symmetric without accessory muscle use, intercostals retractions, or central cyanosis. Normal vesicular breath sounds CTA B/L. No wheezes, rales, or rhonchi appreciated. CARDIAC - Rapid heart rate ABDOMEN - Abdominal contour without pulsations or visible masses. BS normoactive all four quadrants. No tenderness, palpable masses, hepatosplenomegaly, or ascites noted. EXTREMITIES - No clubbing or peripheral cyanosis. No pretibial edema present. + 3/5 radial, posterior tibial, and dorsalis pedis pulses palpated throughout. +5/5 strength noted in UE/LE bilaterally. NEUROLOGIC - Cranial nerves II through XII grossly intact. Sensory intact to light touch throughout. Patellar reflexes +2/4. PSYCH - A&Ox3 and cooperates fully with examiner. Pt is very pleasant and interacts well with examiner. Course Administered Medications Clonidine HCl (Dniubjhv-Zxp-0 0.3mg/24hr) 1 patch TD CQWK CASSANDRA Stop: 07/14/20 11:14 Last Admin: 06/14/20 11:49 Dose: 1 patch Documented by: [id number] Sodium Chloride (Nss 1000ml) 1,000 mls @ 999 mls/hr IV .Q1H1M ONE Last Infusion: 06/14/20 12:00 Dose: 0 mls/hr Documented by: [id number] Admin: 06/14/20 11:10 Dose: 999 mls/hr Documented by: [id number] Discontinued Medications Adenosine (Adenosine) Confirm Administered Dose 18 mg IV .STK-MED ONE Stop: 06/14/20 10:53 Last Admin: 06/14/20 11:05 Dose: 18 mg Documented by: [id number] Adenosine (Adenosine) 6 mg IV NOW STA Stop: 06/14/20 11:07 Last Admin: 06/14/20 11:10 Dose: Not Given Documented by: [id number] Adenosine (Adenosine) 12 mg IV NOW STA Stop: 06/14/20 11:07 Last Admin: 06/14/20 11:10 Dose: Not Given Documented by: [id number] Multivitamins 10 ml/ Thiamine HCl 100 mg/ Folic Acid 1 mg/Sodium Chloride 1,011.2 mls @ 1,011.2 mls/hr IV .Q1H ONE Stop: 06/14/20 12:04 Last Admin: 06/14/20 11:52 Dose: 1,011.2 mls/hr Documented by: [id number] Magnesium Sulfate/Dextrose (Magnesium Sulfate / D5w) 1 gm in 100 mls @ 100 mls/hr IV NOW STA Stop: 06/14/20 12:05 Last Admin: 06/14/20 11:17 Dose: 100 mls/hr Documented by: [id number] Critical Care Time I have personally spent greater than 30 minutes of critical care time in the direct management of this patient. This includes bedside care, interpretation of diagnostic studies, and testing, discussion with consultants, patient, and family members, and other required patient management activities. This 30 minutes is in excess of all separately billable procedures. Medical Decision Making Differential Diagnosis Cardiac ischemia, aortic dissection, pulmonary embolism, pneumothorax, pneumonia, pericarditis, myocarditis, esophageal rupture, GERD, cholecystitis, pancreatitis, musculoskeletal, as well as other pathologies. Medical Records Attestation: I reviewed the patient's medical records. Home Medications Current Medication List: was personally reviewed by me Laboratory Data Attestation: I reviewed the patient's lab results. Result diagrams: 06/14/20 11:25 06/14/20 11:25 Lab Results 06/14/20 06/14/20 06/14/20 Range/Units 10:55 11:25 11:25 WBC 4.85 (4.8-10.8) K/uL RBC 4.06 L (4.2-5.4) M/uL Hgb 13.4 (12.0-16.0) g/dL Hct 38.8 (37-47) % MCV 95.6 (80-100) fL MCH 33.0 (25-34) pg MCHC 34.5 (32-36) g/dL RDW Std Deviation 48.3 H (36.4-46.3) fL RDW Coeff of Marybeth 14.2 (11.5-14.5) % Plt Count 227 (130-400) K/uL MPV 9.3 (7.4-10.4) fL Immature Gran % (Auto) 0.2 % Neut % (Auto) 61.1 % Lymph % (Auto) 20.6 % Broome % (Auto) 16.7 % Eos % (Auto) 1.0 % Baso % (Auto) 0.4 % Neut # (Auto) 2.96 (1.4-6.5) K/uL Lymph # (Auto) 1.00 L (1.2-3.4) K/uL Broome # (Auto) 0.81 H (0.11-0.59) K/uL Eos # (Auto) 0.05 (0-0.5) K/uL Baso # (Auto) 0.02 (0-0.2) K/uL Immature Gran # (Auto) 0.01 (0.00-0.02) K/uL Sodium 140 (136-145) mmol/L Potassium 3.9 (3.5-5.1) mmol/L Chloride 110 H (98-107) mmol/L Carbon Dioxide 21 (21-32) mmol/L Anion Gap 9.0 (3-11) BUN 13 (7-18) mg/dl Creatinine 0.89 (0.6-1.2) mg/dl Est Cr Clr Drug Dosing 86.4 ml/min Est GFR ( Amer) 86.4 Est GFR (Non-Af Amer) 74.5 BUN/Creatinine Ratio 14.1 (10-20) Glucose 103 H (70-99) mg/dl Calcium 8.4 L (8.5-10.1) mg/dl Total Bilirubin 0.8 (0.2-1) mg/dl AST 88 H (15-37) U/L ALT 105 H (12-78) U/L Alkaline Phosphatase 103 (45-117) U/L CK-MB (CK-2) 1.2 (0.5-3.6) ng/ml CK/CKMB % Calc Not Reportable Troponin I < 0.015 (0-0.045) ng/ml NT-Pro-B Natriuret Pep 1743 H (0-900) pg/ml Total Protein 6.7 (6.4-8.2) gm/dl Albumin 3.2 L (3.4-5.0) gm/dl Globulin 3.5 (2.5-4.0) gm/dl Albumin/Globulin Ratio 0.9 (0.9-2) Lipase 131 (73-393) U/L TSH 9.670 H (0.300-4.500) uIu/ml Ethyl Alcohol mg/dL (0-3) mg/dl 06/14/20 Range/Units 11:25 WBC (4.8-10.8) K/uL RBC (4.2-5.4) M/uL Hgb (12.0-16.0) g/dL Hct (37-47) % MCV (80-100) fL MCH (25-34) pg MCHC (32-36) g/dL RDW Std Deviation (36.4-46.3) fL RDW Coeff of Marybeth (11.5-14.5) % Plt Count (130-400) K/uL MPV (7.4-10.4) fL Immature Gran % (Auto) % Neut % (Auto) % Lymph % (Auto) % Broome % (Auto) % Eos % (Auto) % Baso % (Auto) % Neut # (Auto) (1.4-6.5) K/uL Lymph # (Auto) (1.2-3.4) K/uL Broome # (Auto) (0.11-0.59) K/uL Eos # (Auto) (0-0.5) K/uL Baso # (Auto) (0-0.2) K/uL Immature Gran # (Auto) (0.00-0.02) K/uL Sodium (136-145) mmol/L Potassium (3.5-5.1) mmol/L Chloride (98-107) mmol/L Carbon Dioxide (21-32) mmol/L Anion Gap (3-11) BUN (7-18) mg/dl Creatinine (0.6-1.2) mg/dl Est Cr Clr Drug Dosing ml/min Est GFR ( Amer) Est GFR (Non-Af Amer) BUN/Creatinine Ratio (10-20) Glucose (70-99) mg/dl Calcium (8.5-10.1) mg/dl Total Bilirubin (0.2-1) mg/dl AST (15-37) U/L ALT (12-78) U/L Alkaline Phosphatase (45-117) U/L CK-MB (CK-2) (0.5-3.6) ng/ml CK/CKMB % Calc Troponin I (0-0.045) ng/ml NT-Pro-B Natriuret Pep (0-900) pg/ml Total Protein (6.4-8.2) gm/dl Albumin (3.4-5.0) gm/dl Globulin (2.5-4.0) gm/dl Albumin/Globulin Ratio (0.9-2) Lipase (73-393) U/L TSH (0.300-4.500) uIu/ml Ethyl Alcohol mg/dL 28.3 H (0-3) mg/dl Imaging Data Radiologist's Impression: [place] [phone] XRay Report Patient: KAUSHAL ROBLEDO Date: 06/14/20 MR#: [id number]: Sherice HODGE Acct ID:[id number]: Date: [address] Zip: [place] [address] Age: 54Location: ED Sex: F Room/Bed: Att Phy:Diagnosis: heart palpitations Grisel Phy: Aidan Chaves DOService Date: 06/14/20 Fam Phy:Interpreting Phy: Brad aGrzon MD Admit Phy: Ordering Phy: Ruben Carroll MD cc: ~ XR chest 1V portable CLINICAL HISTORY: Palpitations. COMPARISON STUDY: Chest radiograph March 14, 2017. FINDINGS: Borderline cardiomegaly is noted. No pneumothorax or pleural effusion. There is pulmonary vascular congestion with suspected mild pulmonary edema. There is minimal right basilar opacity. IMPRESSION: Pulmonary vascular congestion with suspected mild pulmonary edema. ACT 112: Negative or not required by law. Electronically signed by: Brad Garzon M.D. 06/14/2020 11:52 AM Dictated: 06/14/20 1150 Transcribed: 06/14/20 1150 ECG Data Attestation: I personally reviewed and interpreted this ECG as follows: Indication: + palpitations Rate (beats per minute): 194 Rhythm: + other (undetermined rhythm) ECG Intervals/blocks: + Normal QT-c (431) ECG Gorman: + Normal ECG ST segments: no ST depression and no ST elevation Comparison ECG Date: from (12/13/2019) Change: the following changes noted (rate has increased by 98) Additional Comments: Repeat EKG shows a normal sinus rhythm no ST elevation or depression QTC is 360 ventricular rate is 100 (1103) Blood Pressure Blood Pressure Findings: Low blood pressure MDM Narrative This is a 54-year-old female who presents emergency department complaining of shortness of breath and palpitations. Patient's heart rate was found to be close to 200 upon arrival to the emergency department. Because of this an IV wa s established and the patient was given adenosine 6 mg then 12 mg with immediate improvement. The patient was then given a normal saline bolus. The patient is a recovering alcoholic however did have a glass of wine this morning. She reports falling off the wagon approximately 30 days ago. Based on this she was given magnesium along with a banana bag. She was placed on a clonidine patch. I did discuss the case with her solar sales advisor who was kind enough to see the patient at the bedside. She was also discussed with the hospitalist service who did agree to admit the patient. Patient is in agreement with the treatment plan. Patient was seen and evaluated as above in room C4. Review was performed of nursing notes and vital signs. I did review pertinent previous visits and patient history. After obtaining a thorough history and physical examination the above work up was performed. While in the department, I personally reevaluated the patient several times and each time the patient was found to be resting comfortably. The patient was educated upon management, educated upon todays findings/results, educated upon importance of follow up from today's visit, educated upon symptoms in which to return, had questions answered prior to discharge, verbalized understanding, and was discharged home in good condition. An order was placed for continuous cardiac monitoring. The monitor shows a rate of 95 with Normal Sinus rhythm. The patient was evaluated during the global COVID-19 pandemic, and that diagnosis was suspected/considered upon their initial presentation. Their rocio luation, treatment and testing was consistent with current guidelines for patients who present with complaints or symptoms that may be related to COVID- 19. Impression & Plan Palpitations, Supraventricular tachycardia Discharge Plan Visit Data Chief Complaint: Arrhythmia/Palpitations Stated Complaint: heart palpitations ED Provider: Ruben Carroll ED Midlevel Provider: Sharri Leal Discharge Problem: Palpitations, Supraventricular tachycardia Forms Stand Alone Forms: My [facility] Prescriptions Prescriptions: No Action albuterol sulfate 90 mcg/actuation HFA aerosol inhaler 2 puffs INH Q4H PRN (Reason: shortness of breath or wheezing) RF: 0 metoprolol succinate 25 mg tablet extended release 24 hr 25 mg PO BID RF: 0 amitriptyline 50 mg tablet 50 mg PO HS RF: 0 omeprazole magnesium [Prilosec OTC] 20 mg Tablet,Delayed Release (Dr/Ec) 20 mg PO QAM RF: 0 desvenlafaxine succinate [Pristiq] 50 mg Tablet Extended Release 24 Hr 50 mg PO QAM RF: 0 gabapentin 100 mg capsule 200 mg PO QID PRN (Reason: anxiety) RF: 0 atorvastatin 40 mg tablet 40 mg PO QAM RF: 0 doxycycline hyclate 100 mg capsule 100 mg PO BID RF: 0 montelukast 10 mg tablet 10 mg PO HS RF: 0 tamoxifen 20 mg tablet 20 mg PO QAM RF: 0
[2020-06-14] MEDS ORDERED: cloNIDine HCL 0.3 MG/24 HR TRANSDERM SYS TD SCH (11:15)
[2020-06-14 11:46] LABS: Basophils # (auto) 0.02 K/uL (0-0.2); Basophils % (auto) 0.4 %; Eosinophils # (auto) 0.05 K/uL (0-0.5); Hematocrit (blood only) 38.8 % (37-47); Hemoglobin 13.4 g/dL (12.0-16.0); Immature Granulocytes # (auto) 0.01 K/uL (0.00-0.02); Immature Granulocytes % (auto) 0.2 %; Lymphocytes % (auto) 20.6 %; Mean Corpuscular Hgb Conc 34.5 g/dL (32-36); Mean Corpuscular Volume 95.6 fL (80-100); Mean Platelet Volume 9.3 fL (7.4-10.4); Monocytes # (auto) 0.81 K/uL (0.11-0.59); Monocytes % (auto) 16.7 %; Neutrophils # (auto) 2.96 K/uL (1.4-6.5); Neutrophils % (auto) 61.1 %; Platelet Count 227 K/uL (130-400); RDW Coefficient of Variation 14.2 % (11.5-14.5); RDW Standard Deviation 48.3 fL (36.4-46.3); Red Blood Count 4.06 M/uL (4.2-5.4); White Blood Count 4.85 K/uL (4.8-10.8)
[2020-06-14 11:51] LABS: Creatine Kinase MB 1.2 ng/ml (0.5-3.6); Lipase 131 U/L (73-393); Troponin I < 0.015 ng/ml (0-0.045)
--- NOTE | 2020-06-14 11:53 | XRay Report ---
XR chest 1V portable CLINICAL HISTORY: Palpitations. COMPARISON STUDY: Chest radiograph March 14, 2017. FINDINGS: Borderline cardiomegaly is noted. No pneumothorax or pleural effusion. There is pulmonary v ascular congestion with suspected mild pulmonary edema. There is minimal right basilar opacity. IMPRESSION: Pulmonary vascular congestion with suspected mild pulmonary edema. ACT 112: Negative or not required by law. Electronically signed by: Brad Garzon M.D. 06/14/2020 11:52 AM
--- NOTE | 2020-06-14 12:05 | Cardiology Consultation ---
Date of Consultation June 14, 2020 Assessment & Plan (1) Supraventricular tachycardia: Possible duration of 3 days. Broken the emergency room with 2 doses of adenosine. We will uptitrate beta-blockade. Has also been started on clonidine for both blood pressure and alcohol withdrawal symptoms which I agree with and should be continued. We will repeat an echocardiogram in the a.m. We will follow and replete electrolytes as necessary (2) Alcohol dependence: (3) Alcohol withdrawal: Unfortunately she has resumed drinking. Had previously completed an intensive outpatient therapy program We will ask our psychiatric colleagues to evaluate for recommendations Likely a contributing factor to her SVT. 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 Continue beta-vicky. We will monitor closely during alcohol withdrawal History of Present Illness Reason for Consultation: SVT Requesting Physician: Dr. Carroll Attending Physician: Elyssa Rollins PA-C History of Present Illness It was my pleasure to see Dr. Perla in consultation today. She is a very pleasant 54-year-old woman who follows with me as an outpatient for history of SVT and ventricular tachycardia. She presented to [facility] on 06/14/2020 with complaints of palpitations x3 days. She states that she is felt herself go back in SVT but thought this might be due to alcohol withdrawal. Unfortunately, she has resumed drinking and drinks approximately 2 bottles of wine a day. She thought if she could slowly wean herself off the alcohol that the palpitations might resolve on their own. Then on the morning of the they persisted and she became concerned and came to the emergency department. Upon arrival she was in sustained supraventricular tachycardia which was broken after 2 doses of adenosine. Afterwards, she states that she is feeling shaky and a little anxious. Her last drink was a glass of wine this morning. She is also had issues with her thyroid as of late and was started on supplementation which she had reaction to. She is also been completing her breast cancer therapy and recently started on tamoxifen. She states that she has been compliant with her metoprolol. Past medical history: 1. Alcoholism 2. Episode of sustained ventricular tachycardia during alcohol withdrawal in the setting of hypokalemia 3. Hypertension 4. Transaminitis 5. Sleep apnea 6. Migraines 7. Dyslipidemia statin currently on hold due to transaminitis 8. bilateral ductal carcinoma in situ status post lumpectomies, radiation therapy and chemotherapy Allergies Allergy/AdvReac Type Severity Reaction Status Date / Time levothyroxine Allergy Severe facial Unverified 06/14/20 11:48 swelling minocycline [From Minocin] Allergy Mild Rash Verified 06/14/20 11:41 Sulfa (Sulfonamide Allergy Unknown PT DOESN'T Verified 06/14/20 11:41 Antibiotics) REMEMBER REACTION Home Medications Home Medications Medication Instructions Recorded Confirmed Type amitriptyline 50 mg PO HS 12/13/19 06/14/20 History desvenlafaxine succinate [Pristiq] 50 mg PO QAM 12/13/19 06/14/20 History omeprazole magnesium [Prilosec OTC] 20 mg PO QAM 12/13/19 06/14/20 History atorvastatin 40 mg PO QAM 04/08/20 06/14/20 History doxycycline hyclate 100 mg PO BID 04/08/20 06/14/20 History albuterol sulfate 90 mcg/actuation 2 puffs INH Q4H PRN gm 04/10/20 06/14/20 History aerosol inhaler gabapentin 100 mg capsule 100 mg PO QID PRN 04/10/20 06/14/20 History montelukast 10 mg tablet 10 mg PO HS tab 04/10/20 06/14/20 History metoprolol succinate 25 mg 25 mg PO BID tab 04/30/20 06/14/20 History tablet,extended release 24 hr tamoxifen 20 mg PO QAM 06/14/20 06/14/20 History Patient History Medical History Abnormal thyroid function test started on 25mcg levothyroxine Abrasion, corneal (Inactive) Alcohol dependence Alcohol withdrawal Asthma (Inactive) Breast hematoma after procedure Left breast after biopsy in 11/2019 Depression (Inactive) 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) Dyslipidemia (Inactive) Dysphagia Barium Swallow Negative - no problem since stopping drinking Elevated LFTs History of History of sleep apnea (Inactive) "resolved per patient" Hypokalemia "history of while drinking" Hypothyroidism Insomnia (Inactive) Migraine (Inactive) Mood disorder PSVT (paroxysmal supraventricular tachycardia) (Inactive) with alcohol withdrawl Rosacea Ventricular tachycardia from alcohol withdrawl Surgical History H/O colonoscopy (Inactive) 05/01/2016 - perianal skin tag, normal colon H/O esophagogastroduodenoscopy (Inactive) 07/04/2009 - EUS exam- No choledocholithiasis, No masses appreciated in the entire pancreas. EGD exam- Normal examined duodenum. Bilious gastric fluid. Mild gastritis ? bilious etiology. Bx neg for H. pylori. Prominent fold just distal to GEJ. Bx- Squamocolumnar mucosa with mild carditis and hyperplastic changes. Negative for intestinal metaplasia and dysplasia. Medium sized hiatus hernia." On 03/10/17 15:26 Rita Taco wrote "07/04/2009- EUS exam- No choledocholithiasis, No masses appreciated in the entire pancreas. EGD exam- Normal examined duodenum. Bilious gastric fluid. Mild gastritis ? bilious etiology. This was biopsied to r/o H Pylori. Prominent fold just distal to GEJ. This was biopsied. Medium sized hiatus hernia." History of breast biopsy 11/30/2019 - Left Breast 02/08/2020 - Right Breast History of breast lump/mass excision 02/15/2020 - Right Breast History of dilation and curettage 2003 - s/p miscarriage History of lumpectomy of left breast 02/15/2020 History of lumpectomy of right breast 03/28/2020 History of mandibular surgery 1986 History of surgery 05/07/2016 - Anal Tag Removal S/P laparoscopic cholecystectomy (Inactive) 02/23/2004 Family History Mother Breast cancer, Onset Age: 76 Currently battling metastatic breast cancer Grandmother (Paternal) , Passed age 93 of stomach cancer No problems noted. Grandfather (Maternal) , Passed age 72 of colon cancer No problems noted. Father , Passed age 67 of complications from menigioma No problems noted. Aunt Breast cancer, Onset Age: 34 Alive and well Aunt Breast cancer, Onset Age: 62 alive and well Aunt Breast cancer, Onset Age: 62 Alive and well Brother Stroke Dementia Sister No problems noted. Son No problems noted. 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 Mildly anxious and diaphoretic. HEENT: Normocephalic, atraumatic. Pupils equal, round and reactive to light and accommodation. Extraocular muscles are intact. Anicteric sclera. Moist mucous membranes. Neck: No JVD. No bruit. Cardiovascular: Regular. No S-4. Normal S-1 and S-2. No S-3. No murmurs, rubs or gallops. Pulmonary: Clear to auscultation bilaterally. No rales, rhonchi, or wheezing. Abdomen: Bowel sounds x 4, soft. No rebound, guarding or tenderness. No organomegaly. Extremities: No clubbing, cyanosis or edema. +2 pedal pulses bilaterally. Skin: Warm and dry. Results & Data ([facility]) Vital Signs (Past 12 Hours) Vital Signs Temp Pulse Pulse Resp BP BP Pulse Ox 06/14/20 11:20 95 H 24 127/98 100 06/14/20 11:08 100 06/14/20 11:06 96 H 22 138/106 H 99 06/14/20 10:43 36.7 C 196 H 22 77/64 L 98 (1) Alcohol withdrawal Complication of substance-induced condition: with unspecified complication Qualified Code(s): F10.239 - Alcohol dependence with withdrawal, unspecified
[2020-06-14 12:06] LABS: Albumin Level 3.2 gm/dl (3.4-5.0); BUN Creatinine Ratio 14.1 (10-20); Calcium 8.4 mg/dl (8.5-10.1); Creatinine Clr Calc Pharmacy 86.4 ml/min; Est GFR (African American) 86.4; Est GFR (Non-African American) 74.5; Potassium 3.9 mmol/L (3.5-5.1)
[2020-06-14 12:11] LABS: Albumin Globulin Ratio 0.9 (0.9-2); Bilirubin,Total 0.8 mg/dl (0.2-1); Globulin 3.5 gm/dl (2.5-4.0); Total Protein 6.7 gm/dl (6.4-8.2)
[2020-06-14] MEDS ORDERED: LORazepam 1 MG/2 ML VIAL IV PRN (12:34)
[2020-06-14] MEDS ORDERED: LORazepam 3 MG/6 ML VIAL IV PRN (12:34)
[2020-06-14] MEDS ORDERED: LORazepam 2 MG/4 ML VIAL IV PRN (12:34)
[2020-06-14] MEDS ORDERED: ATIVAN IV ALCOHOL WITHDRAWL IV PRN (12:34)
[2020-06-14] MEDS ORDERED: GABAPENTIN 1200MG ALCOHOL WITHDRAWAL LOAD PO STA (12:34)
[2020-06-14] MEDS ORDERED: LORazepam 1 MG TAB ONE (12:52)
[2020-06-14] MEDS ORDERED: LORazepam 1 MG TAB SL STA (12:54)
[2020-06-14] MEDS ORDERED: GABAPENTIN 600 MG TAB PO ONE (13:00)
--- NOTE | 2020-06-14 13:42 | History & Physical Report ---
Date of Service June 14, 2020 Assessment & Plan (1) Tachyarrhythmia: This is a 54-year-old female with PMH of alcohol use disorder, history of paroxysmal SVT in the setting of alcohol withdrawal, breast cancer (s/p surgery and radiation), hypothyroidism, anxiety and depression who presents with rapid heart rate x 3 days. -Palpitations for the past few days, becoming more symptomatic -Concern for QT prolongation due to interaction of tamoxifen and Elavil vs tachyarrhythmia related to alcohol use -Initial EKG with undetermined rhythm with heart rate of 194 and QTc of 431. Received 6mg and then 12mg of adenosine with immediate improvement. Repeat ECG with NSR -History of paroxysmal SVT and ventricular tachycardia in setting of alcohol withdrawal and hyperadrenergic state -Seen and evaluated by Dr. Healy. Received 50 mg of metoprolol succinate this morning and HR currently 96. Monitor closely on telemetry (2) Alcohol withdrawal: (3) Alcohol dependence: Relapsed 30 days ago, drinking 2 bottles of wine daily with last glass of wine this morning -Serum alcohol level 28.3. Initiated alcohol withdrawal protocol with gabapentin and IV Ativan as needed -History of moderate with withdrawal symptoms including hallucinations but no seizure history -Given banana bag, thiamine and folic acid. Continue IV fluids. Seizure precautions (4) Abnormal TSH: Has not taken Levoxyl in a few weeks due to possible medication reaction while receiving radiation -Patient has spoken to Dr. Puckett of endocrinology, concerned that allergy was possible due to additives in Levoxyl and recommended Tirosint -TSH of 9 today, will repeat tomorrow -Will need medication adjustment - Tirosint not stocked in our pharmacy (5) Ductal carcinoma in situ (DCIS) of left breast: (6) Ductal carcinoma in situ (DCIS) of right breast: S/p surgical resection and XRT. Recently started on Tamoxifen 11 days ago -Follows with Dr. Vargas. Will reach out to discuss resuming Tamoxifen (7) Mood disorder: Continue Pristiq and Elavil. Routine psychiatric consult for medication adjustment in setting of severe anxiety DVT Ppx: SQ heparin Code status: FULL PCP: Anastacio Dispo: Admitted to PCU. Discharge planning ordered. Patient seen in collaboration with Dr. Santacruz. Please see addendum. History of Present Illness Chief Complaint: Symptomatic tachycardia, alcohol withdrawal Primary Care Provider: Aidan Chaves DO This is a 54-year-old female with PMH of alcohol use disorder, history of paroxysmal SVT in the setting of alcohol withdrawal, breast cancer (s/p surgery and radiation), hypothyroidism, anxiety and depression who presents with rapid heart rate x 3 days. Patient first woke up with increased heart rate 3 days ago but has since developed associated lightheadedness, visual changes and dyspnea on exertion. Was concerned that tamoxifen, which she recently started taking for breast cancer 11 days ago, was interacting with amitriptyline and causing arrhythmia, so she came into ED for further evaluation. Did take 50 mg of metoprolol succinate this morning prior to arrival. Has history of alcohol use with inpatient rehab this past November followed by outpatient rehab. Relapsed 30 days ago and has been drinking 2 bottles of wine daily, with last glass of wine this morning. Feels anxious and jittery at this point in time. History of hallucinations in setting of withdrawal but denies any seizures. Does have history of developing SVT in the setting of alcohol withdrawal during admission back in November 2019. Currently patient feels anxious with some dyspnea on exertion. No longer experiencing lightheadedness or palpitations. Denies any fever, chills, cough, headache, confusion, chest pain, abdominal pain, nausea, vomiting, dysuria, diarrhea or constipation. Allergies Allergy/AdvReac Type Severity Reaction Status Date / Time levothyroxine Allergy Severe facial Unverified 06/14/20 11:48 swelling minocycline [From Minocin] Allergy Mild Rash Verified 06/14/20 11:41 Sulfa (Sulfonamide Allergy Unknown PT DOESN'T Verified 06/14/20 11:41 Antibiotics) REMEMBER REACTION Home Medications Home Medications Medication Instructions Recorded Confirmed Type amitriptyline 50 mg PO HS 12/13/19 06/14/20 History desvenlafaxine succinate [Pristiq] 50 mg PO QAM 12/13/19 06/14/20 History omeprazole magnesium [Prilosec OTC] 20 mg PO QAM 12/13/19 06/14/20 History atorvastatin 40 mg PO QAM 04/08/20 06/14/20 History doxycycline hyclate 100 mg PO BID 04/08/20 06/14/20 History albuterol sulfate 90 mcg/actuation 2 puffs INH Q4H PRN gm 04/10/20 06/14/20 History aerosol inhaler gabapentin 100 mg capsule 100 mg PO QID PRN 04/10/20 06/14/20 History montelukast 10 mg tablet 10 mg PO HS tab 04/10/20 06/14/20 History metoprolol succinate 25 mg 25 mg PO BID tab 04/30/20 06/14/20 History tablet,extended release 24 hr tamoxifen 20 mg PO QAM 06/14/20 06/14/20 History Past Med/Surg History Medical History Abnormal thyroid function test started on 25mcg levothyroxine Abrasion, corneal (Inactive) Alcohol dependence Alcohol withdrawal Asthma (Inactive) Breast hematoma after procedure Left breast after biopsy in 11/2019 Depression (Inactive) 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) Dyslipidemia (Inactive) Dysphagia Barium Swallow Negative - no problem since stopping drinking Elevated LFTs History of History of sleep apnea (Inactive) "resolved per patient" Hypokalemia "history of while drinking" Hypothyroidism Insomnia (Inactive) Migraine (Inactive) Mood disorder PSVT (paroxysmal supraventricular tachycardia) (Inactive) with alcohol withdrawl Rosacea Ventricular tachycardia from alcohol withdrawl Surgical History H/O colonoscopy (Inactive) 05/01/2016 - perianal skin tag, normal colon H/O esophagogastroduodenoscopy (Inactive) 07/04/2009 - EUS exam- No choledocholithiasis, No masses appreciated in the entire pancreas. EGD exam- Normal examined duodenum. Bilious gastric fluid. Mild gastritis ? bilious etiology. Bx neg for H. pylori. Prominent fold just distal to GEJ. Bx- Squamocolumnar mucosa with mild carditis and hyperplastic changes. Negative for intestinal metaplasia and dysplasia. Medium sized hiatus hernia." On 03/10/17 15:26 Rita España wrote "07/04/2009- EUS exam- No choledocholithiasis, No masses appreciated in the entire pancreas. EGD exam- Normal examined duodenum. Bilious gastric fluid. Mild gastritis ? bilious etiology. This was biopsied to r/o H Pylori. Prominent fold just distal to GEJ. This was biopsied. Medium sized hiatus hernia." History of breast biopsy 11/30/2019 - Left Breast 02/08/2020 - Right Breast History of breast lump/mass excision 02/15/2020 - Right Breast History of dilation and curettage 2003 - s/p miscarriage History of lumpectomy of left breast 02/15/2020 History of lumpectomy of right breast 03/28/2020 History of mandibular surgery 1986 History of surgery 05/07/2016 - Anal Tag Removal S/P laparoscopic cholecystectomy (Inactive) 02/23/2004 Family History Mother Breast cancer, Onset Age: 76 Currently battling metastatic breast cancer Grandmother (Paternal) , Passed age 93 of stomach cancer No problems noted. Grandfather (Maternal) , Passed age 72 of colon cancer No problems noted. Father , Passed age 67 of complications from menigioma No problems noted. Aunt Breast cancer, Onset Age: 34 Alive and well Aunt Breast cancer, Onset Age: 62 alive and well Aunt Breast cancer, Onset Age: 62 Alive and well Brother Stroke Dementia Sister No problems noted. Son No problems noted. 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 Physical Exam Physical Exam: General Appearance: WD/WN, vitals as above, anxious, flushed, conversing easily Head: normocephalic, atraumatic Eyes: normal inspection, PERRL, conjunctivae normal, anicteric sclerae ENT: external ear and nose normal, oropharynx normal Neck: trachea midline, no thyromegaly normal visual inspection Respiratory: normal respiratory effort, expiratory wheezing at bases, otherwise clear to auscultation. No rales, rhonchi. Normal insp/exp effort, no accessory muscle use Cardiovascular: Tachycardic, regular rhythm, no murmur appreciated, normal peripheral pulses. Vessels: no JVD Chest: normal inspection of chest Abdomen/GI: normal bowel sounds, soft, nontender, no hepatosplenomegaly Extremities/Musculoskeletal: no cyanosis or clubbing, extremities motor st rength 5/5 Neurologic: PERRL, EOMI, accommodation nl, no face palsy, no dysarthria, CN's II-XI intact bilaterally and moves all extremities Psychiatric: A+Ox3, anxious Skin: no rashes, normal color, warm/dry Results & Data Results & Data ([facility]) Vital Signs (Past 12 Hours) Vital Signs Temp Pulse Pulse Resp BP BP Pulse Ox 06/14/20 13:14 96 H 22 158/121 H 100 06/14/20 12:57 96 H 22 158/121 H 100 06/14/20 11:20 95 H 24 127/98 100 06/14/20 11:08 100 06/14/20 11:06 96 H 22 138/106 H 99 06/14/20 10:43 36.7 C 196 H 22 77/64 L 98 Laboratory Results Short CBC 06/14/20 Range/Units 11:25 WBC 4.85 (4.8-10.8) K/uL Hgb 13.4 (12.0-16.0) g/dL Hct 38.8 (37-47) % Plt Count 227 (130-400) K/uL BMP 06/14/20 11:25 Sodium 140 Potassium 3.9 Chloride 110 H Carbon Dioxide 21 BUN 13 Creatinine 0.89 Glucose 103 H Calcium 8.4 L Cardiac Enzymes 06/14/20 Range/Units 10:55 CK-MB (CK-2) 1.2 (0.5-3.6) ng/ml Troponin I < 0.015 (0-0.045) ng/ml Liver Function 06/14/20 Range/Units 11:25 Total Bilirubin 0.8 (0.2-1) mg/dl AST 88 H (15-37) U/L ALT 105 H (12-78) U/L Alkaline Phosphatase 103 (45-117) U/L Albumin 3.2 L (3.4-5.0) gm/dl Supervising Physician Co-Signing Physician Notes Attending addendum: The patient was seen and examined in telemetry unit She is admitted with SVT secondary to alcoholism with withdrawal Still complains to have palpitation and anxiety symptoms On examination Very anxious with tachycardia and tremor of the outstretched hands Otherwise hemodynamically stable Chest-clear Heart-S1-S2 regular Abdomen-benign Extremities-negative for any edema Admission labs, EKG and imaging studies reviewed Noted to have SVT with heart rate of 190 on admission and reverted to sinus rhythm with adenosine Has been on alcohol withdrawal protocol Cardiology consulted and appreciate input Agree with assessment and plan as outlined above by PATIENCE Pizarro Dr (1) Alcohol withdrawal Complication of substance-induced condition: with unspecified complication Qualified Code(s): F10.239 - Alcohol dependence with withdrawal, unspecified
[2020-06-14] MEDS ORDERED: POLYETHYLENE (MIRALAX) 17 GM PACK PO PRN (14:17)
[2020-06-14] MEDS ORDERED: ACETAMINOPHEN 325 MG TAB PO PRN (14:17)
[2020-06-14] MEDS: SODIUM CHLORIDE 0.9% 1000ML 1,000 ML IV SCH (14:42)
[2020-06-14] MEDS ORDERED: TAMOXIFEN CITRATE 10 MG TABLET PO SCH (15:00)
[2020-06-14] MEDS: CHECK CLONIDINE PATCH PLACEMENT SCH ×2 (15:14→23:45)
[2020-06-14] MEDS: THIAMINE HCL 100 MG TAB PO SCH (16:19)
[2020-06-14] MEDS: GABAPENTIN 600 MG TAB PO SCH ×2 (17:19→23:45)
[2020-06-14] MEDS: DOXYCYCLINE HYCLATE 100 MG CAP PO SCH (20:54)
[2020-06-14] MEDS: PANTOprazole 40 MG TAB PO SCH (20:55)
[2020-06-14] MEDS: MONTELUKAST SODIUM 10 MG TABLET PO SCH (20:55)
[2020-06-14] MEDS: AMITRIPTYLINE HCL 50 MG TAB PO SCH (20:55)
[2020-06-14] MEDS: HEPARIN SOD 5,000 UNIT/0.5 ML VIAL SQ SCH (21:12)
--- NOTE | 2020-06-14 23:11 | Electrocardiogram Report ---
Test Reason : Blood Pressure : / mmHG Vent. Rate : 194 BPM Atrial Rate : 178 BPM P-R Int : 000 ms QRS Dur : 078 ms QT Int : 240 ms P-R-T Axes : 000 051 -74 degrees QTc Int : 431 ms Supraventricular tachycardia Nonspecific ST and T wave abnormality Abnormal ECG When compared with ECG of 13-DEC-2019 22:55, Supraventricular tachycardia has replaced Sinus rhythm Premature ventricular complexes are no longer Present T wave inversion now evident in Inferior leads HR has increased by 86 Confirmed by Duran Sauceda ([id number]) on 06/14/2020 11:11:08 PM Referred By: REFERRED SELF Confirmed By:Duran Sauceda
--- NOTE | 2020-06-14 23:13 | Electrocardiogram Report ---
Test Reason : Blood Pressure : / mmHG Vent. Rate : 100 BPM Atrial Rate : 100 BPM P-R Int : 168 ms QRS Dur : 084 ms QT Int : 360 ms P-R-T Axes : 066 054 042 degrees QTc Int : 464 ms Normal sinus rhythm Possible Left atrial enlargement Borderline ECG When compared with ECG of 14-Jun-2020 10:50, Sinus rhythm has replaced Supraventricular tachycardia Confirmed by Duran Sauceda ([id number]) on 06/14/2020 11:13:00 PM Referred By: REFERRED SELF Confirmed By:Duran Sauceda
[2020-06-15] MEDS: SODIUM CHLORIDE 0.9% 1000ML 1,000 ML IV SCH (01:03)
[2020-06-15] MEDS: HEPARIN SOD 5,000 UNIT/0.5 ML VIAL SQ SCH ×3 (05:51→20:59)
[2020-06-15 06:18] LABS: Hematocrit (blood only) 35.3 % (37-47); Hemoglobin 12.3 g/dL (12.0-16.0); Mean Corpuscular Hemoglobin 33.9 pg (25-34); Mean Corpuscular Hgb Conc 34.8 g/dL (32-36); Mean Corpuscular Volume 97.2 fL (80-100); Mean Platelet Volume 9.1 fL (7.4-10.4); Nucleated RBC # (auto) 0.03 K/uL (0-0); Nucleated RBC % (auto) 0.7 %; Platelet Count 191 K/uL (130-400); RDW Coefficient of Variation 14.4 % (11.5-14.5); RDW Standard Deviation 49.3 fL (36.4-46.3); Red Blood Count 3.63 M/uL (4.2-5.4); White Blood Count 4.73 K/uL (4.8-10.8)
[2020-06-15 06:50] LABS: BUN Creatinine Ratio 15.8 (10-20); Calcium 8.2 mg/dl (8.5-10.1); Creatinine Clr Calc Pharmacy 87.4 ml/min; Est GFR (African American) 85.2; Est GFR (Non-African American) 73.5; Magnesium 1.8 mg/dl (1.8-2.4); Potassium 3.8 mmol/L (3.5-5.1)
[2020-06-15 07:01] LABS: Thyroid Stimulating Hormone 6.14 uIu/ml (0.300-4.500)
[2020-06-15] MEDS: GABAPENTIN 600 MG TAB PO SCH ×3 (08:45→23:27)
[2020-06-15] MEDS: PANTOprazole 40 MG TAB PO SCH (08:45)
[2020-06-15] MEDS: ATORVASTATIN 40 MG TAB PO SCH (08:46)
[2020-06-15] MEDS: VENLAFAXINE HCL XR 37.5 MG CAPXR PO SCH (08:46)
[2020-06-15] MEDS: THIAMINE HCL 100 MG TAB PO SCH (08:46)
[2020-06-15] MEDS: DOXYCYCLINE HYCLATE 100 MG CAP PO SCH ×2 (08:46→20:59)
[2020-06-15] MEDS ORDERED: FOLIC ACID 1 MG TAB PO SCH (09:00)
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
[2020-06-15] MEDS: CHECK CLONIDINE PATCH PLACEMENT SCH ×3 (09:43→23:28)
--- NOTE | 2020-06-15 11:09 | Hospitalist Progress Note ---
Date of Service June 15, 2020 Assessment & Plan (1) Tachyarrhythmia: This is a 54-year-old female with PMH of alcohol use disorder, history of paroxysmal SVT in the setting of alcohol withdrawal, breast cancer (s/p surgery and radiation), hypothyroidism, anxiety and depression who presents with rapid heart rate x 3 days. -Palpitations for the past few days, becoming more symptomatic -History of paroxysmal SVT and ventricular tachycardia in setting of alcohol withdrawal and hyperadrenergic state -Seen and evaluated by Dr. Healy. Received 50 mg of metoprolol succinate this morning and HR currently 96. Monitor closely on telemetry -Remains in sinus rhythm with sinus tachycardia around 105 -Clinically a lot better today -We will start her usual home medications of beta-vicky (2) Alcohol withdrawal: Still has tremors involving the outstretched hands Feels dizzy while ambulating Continue with gabapentin protocol We will get PT and OT evaluation before discharge (3) Alcohol dependence: Relapsed 30 days ago, drinking 2 bottles of wine daily with last glass of wine this morning -Serum alcohol level 28.3. Initiated alcohol withdrawal protocol with gabapentin and IV Ativan as needed -History of moderate with withdrawal symptoms including hallucinations but no seizure history -Given banana bag, thiamine and folic acid. Continue IV fluids. Seizure precautions -Social service consult for discharge planning (4) Abnormal TSH: Has not taken Levoxyl in a few weeks due to possible medication reaction while receiving radiation -Patient has spoken to Dr. Puckett of endocrinology, concerned that allergy was possible due to additives in Levoxyl and recommended Tirosint -TSH of 9 today, will repeat tomorrow -Repeat TSH was around 6 -Will not start any thyroid medications as of yet (5) Ductal carcinoma in situ (DCIS) of left breast: (6) Ductal carcinoma in situ (DCIS) of right breast: S/p surgical resection and XRT. Recently started on Tamoxifen 11 days ago -Follows with Dr. Vargas. -We will start tamoxifen on discharge (7) Mood disorder: Continue Pristiq and Elavil. Routine psychiatric consult for medication adjustment in setting of severe anxiety Appreciate psychiatric input and recommendation DVT Ppx: SQ heparin Code status: FULL PCP: Anastacio Dispo: Admitted to PCU. Discharge planning ordered. Admission and Anticipated Discharge Date Admission Date: June 14, 2020 Subjective The patient was seen and examined in the telemetry unit She complains to have tremors of the hands and dizziness while ambulating Denies any palpitation and/or chest pain Still has some shortness of breath with exertion Review of Systems Review of Systems: All systems reviewed and are unremarkable except as noted below Respiratory: + dyspnea on exertion Cardiovascular: + dyspnea on exertion and + edema (Trace edema bilaterally); no chest pain and no palpitations Physical Exam Physical Exam: Sitting at the edge of the bed without any distress Constitutional: well developed, well nourished and + ill appearing; no acute distress Eyes: PERRL, conjunctivae normal, anicteric sclerae ENMT: external ear and nose normal, oropharynx normal Neck: trachea midline, no thyromegaly Respiratory: normal respiratory effort; no respiratory distress Auscultation: lungs clear to auscultation bilaterally Cardiovascular: Rate/Rhythm: regular rate and regular rhythm Heart Sounds: no murmur Gastrointestinal (Abdomen): Inspection/Auscultation: abdomen normal to inspection and normal bowel sounds; abdomen not distended Percussion/Palpation: abdomen soft Musculoskeletal: No acute arthritis involving any joints Neurologic: moves all extremities; no focal motor deficits Motor/Sensory: + tremor (With outstretched hand) Alert, awake and oriented x3. Results & Data Results & Data ([facility]) Vital Signs (Past 12 Hours) Vital Signs Temp Pulse Pulse Resp BP Pulse Ox 06/15/20 08:00 105 H 06/15/20 07:45 36.4 C L 95 H 16 114/69 98 06/15/20 03:59 36.4 C L 99 H 18 111/76 93 06/15/20 00:00 105 H 06/14/20 23:49 36.8 C 110 H 18 122/84 98 Laboratory Results Short CBC 06/14/20 06/15/20 Range/Units 11:25 05:40 WBC 4.85 4.73 L (4.8-10.8) K/uL Hgb 13.4 12.3 (12.0-16.0) g/dL Hct 38.8 35.3 L (37-47) % Plt Count 227 191 (130-400) K/uL BMP 06/14/20 06/15/20 11:25 05:40 Sodium 140 139 Potassium 3.9 3.8 Chloride 110 H 110 H Carbon Dioxide 21 23 BUN 13 14 Creatinine 0.89 0.90 Glucose 103 H 115 H Calcium 8.4 L 8.2 L Cardiac Enzymes 06/14/20 Range/Units 10:55 CK-MB (CK-2) 1.2 (0.5-3.6) ng/ml Troponin I < 0.015 (0-0.045) ng/ml Liver Function 06/14/20 Range/Units 11:25 Total Bilirubin 0.8 (0.2-1) mg/dl AST 88 H (15-37) U/L ALT 105 H (12-78) U/L Alkaline Phosphatase 103 (45-117) U/L Albumin 3.2 L (3.4-5.0) gm/dl Medications Administered Current Inpatient Medications Acetaminophen (Tylenol) 650 mg PO Q4H PRN PRN Reason: Pain or Fever Stop: 07/14/20 14:16 Amitriptyline HCl (Elavil) 50 mg PO HS [facility] Stop: 07/14/20 20:59 Last Admin: 06/14/20 20:55 Dose: 50 mg Documented by: Atorvastatin Calcium ([facility]itor) [facility] Stop: 07/15/20 08:59 Last Admin: 06/15/20 08:46 Dose: 40 mg Documented by: Clonidine HCl ([id number]-[id number] 0.3mg/24hr) 1 patch TD CQWK [facility] Stop: 07/14/20 11:14 Last Admin: 06/14/20 11:49 Dose: 1 patch Documented by: Doxycycline Hyclate (Vibramycin) 100 mg PO BID [facility]; Protocol Stop: 06/21/20 20:59 Last Admin: 06/15/20 08:46 Dose: 100 mg Documented by: Folic Acid (Folvite) 1 mg PO QAM [facility] Stop: 07/15/20 08:59 Last Admin: 06/15/20 08:50 Dose: 1 mg Documented by: Gabapentin (Neurontin) 600 mg PO Q8H [facility] Stop: 06/16/20 00:01 Last Admin: 06/15/20 08:45 Dose: 600 mg Documented by: Gabapentin (Neurontin) 600 mg PO Q12H [facility] Stop: 06/17/20 00:01 Gabapentin (Neurontin) 600 mg PO Q24H [facility] Stop: 06/18/20 00:01 Heparin Sodium (Porcine) (Heparin Sodium (Porcine)) 5,000 units SQ Q8 [facility] Stop: 07/14/20 21:59 Last Admin: 06/15/20 05:51 Dose: 5,000 units Documented by: Lorazepam (Ativan) 1 mg in 2 mls @ 2 mls/min IV UD PRN; Protocol PRN Reason: EtOH Withdrawl AWSS Score 6,7 Stop: 07/14/20 12:33 Lorazepam (Ativan) 2 mg in 4 mls @ 4 mls/min IV UD PRN; Protocol PRN Reason: EtOH Withdrawl AWSS Score 8,9 Stop: 07/14/20 12:33 Lorazepam (Ativan) 3 mg in 6 mls @ 4 mls/min IV ONCE PRN; Protocol PRN Reason: EtOH Withdrawl AWSS Score >=10 Stop: 07/14/20 12:33 Miscellaneous (Remove Clonidine Patch) 1 ea N/A CQWK [facility] Stop: 07/21/20 11:14 Miscellaneous (Check Clonidine Patch) 1 ea N/A QS [facility] Stop: 07/14/20 15:59 Last Admin: 06/15/20 09:43 Dose: 1 ea Documented by: Montelukast Sodium (Singulair) 10 mg PO HS [facility] Stop: 07/14/20 20:59 Last Admin: 06/14/20 20:55 Dose: 10 mg Documented by: Pantoprazole Sodium (Protonix) 40 mg PO QAM [facility] Stop: 07/15/20 08:59 Last Admin: 06/15/20 08:45 Dose: 40 mg Documented by: Polyethylene Glycol (Miralax Powder Packet) 17 gm PO DAILY PRN PRN Reason: Constipation Stop: 07/14/20 14:16 Tamoxifen Citrate (Nolvadex) 20 mg PO QAM [facility] Stop: 07/14/20 14:59 Thiamine HCl (Vitamin B-1) 100 mg PO QAM [facility] Stop: 07/14/20 14:29 Last Admin: 06/15/20 08:46 Dose: 100 mg Documented by: Venlafaxine HCl (Effexor Extended Release) 37.5 mg PO DAILY [facility] Stop: 07/15/20 08:59 Last Admin: 06/15/20 08:46 Dose: 37.5 mg Documented by: (1) Alcohol withdrawal Complication of substance-induced condition: with unspecified complication Qualified Code(s): F10.239 - Alcohol dependence with withdrawal, unspecified
[2020-06-15] MEDS: METOPROLOL SUCC 50MG EXT REL TAB PO SCH ×2 (13:55→20:59)
--- NOTE | 2020-06-15 15:11 | Cardiology Progress Note ---
Date of Service June 15, 2020 Assessment & Plan (1) Supraventricular tachycardia: Possible duration of 3 days. Broken the emergency room with 2 doses of adenosine. We will uptitrate beta-blockade to 50 mg p.o. twice daily starting now. Has also been started on clonidine for both blood pressure and alcohol withdrawal symptoms which I agree with and should be continued. We will continue to monitor on telemetry overnight and will likely be able to DC telemetry in the a.m. (2) Alcohol dependence: (3) Alcohol withdrawal: Unfortunately she has resumed drinking. Had previously completed an intensive outpatient therapy program We will ask our psychiatric colleagues to evaluate for recommendations Likely a contributing factor to her SVT. 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 Continue beta-vicky. We will monitor closely during alcohol withdrawal Subjective Patient seen and examined, chart reviewed. States that she is feeling relatively well today. A little shaky and a little anxious but otherwise well. Denies any chest pain, shortness of breath, palpitations, lightheadedness, dizziness or syncope. Telemetry reviewed: Normal sinus rhythm/sinus tachycardia without arrhythmia. Review of Systems Review of Systems: All systems reviewed & are unremarkable except as noted in HPI & below Physical Exam Physical Exam: Physical Exam: General: Awake, alert and oriented x 3. No acute distress. HEENT: Normocephalic, atraumatic. Pupils equal, round and reactive to light and accommodation. Extraocular muscles are intact. Anicteric sclera. Moist mucous membranes. Neck: No JVD. No bruit. Cardiovascular: Regular. No S-4. Normal S-1 and S-2. No S-3. No murmurs, rubs or gallops. Pulmonary: Clear to auscultation bilaterally. No rales, rhonchi, or wheezing. Abdomen: Bowel sounds x 4, soft. No rebound, guarding or tenderness. No organomegaly. Extremities: No clubbing, cyanosis or edema. +2 pedal pulses bilaterally. Skin: Warm and dry. Results & Data Vital Signs (Past 12 Hours) Vital Signs Temp Pulse Pulse Resp BP Pulse Ox 06/15/20 11:46 36.8 C 89 16 122/63 96 06/15/20 08:00 105 H 06/15/20 07:45 36.4 C L 95 H 16 114/69 98 06/15/20 03:59 36.4 C L 99 H 18 111/76 93 (1) Alcohol withdrawal Complication of substance-induced condition: with unspecified complication Qualified Code(s): F10.239 - Alcohol dependence with withdrawal, unspecified
--- NOTE | 2020-06-15 16:03 | Electrocardiogram Report ---
Test Reason : Blood Pressure : / mmHG Vent. Rate : 101 BPM Atrial Rate : 101 BPM P-R Int : 168 ms QRS Dur : 078 ms QT Int : 366 ms P-R-T Axes : 066 065 055 degrees QTc Int : 474 ms Sinus tachycardia Otherwise normal ECG When compared with ECG of 14-JUN-2020 11:03, No significant change was found Confirmed by Jamir Parish ([id number]) on 06/15/2020 4:02:54 PM Referred By: REFERRED SELF Confirmed By:Jamir Parish
--- NOTE | 2020-06-15 16:10 | Electrocardiogram Report ---
Test Reason : Blood Pressure : / mmHG Vent. Rate : 103 BPM Atrial Rate : 103 BPM P-R Int : 176 ms QRS Dur : 078 ms QT Int : 358 ms P-R-T Axes : 063 061 036 degrees QTc Int : 468 ms Poor data quality, interpretation may be adversely affected Sinus tachycardia Otherwise normal ECG When compared with ECG of 15-JUN-2020 06:35, (unconfirmed) No significant change was found Confirmed by Jamir Parish ([id number]) on 06/15/2020 4:09:34 PM Referred By: REFERRED SELF Confirmed By:Jamir Parish
[2020-06-15] MEDS: MONTELUKAST SODIUM 10 MG TABLET PO SCH (20:59)
[2020-06-15] MEDS: AMITRIPTYLINE HCL 50 MG TAB PO SCH (20:59)
[2020-06-16] MEDS: HEPARIN SOD 5,000 UNIT/0.5 ML VIAL SQ SCH (06:04)
[2020-06-16 06:07] LABS: Basophils # (auto) 0.02 K/uL (0-0.2); Basophils % (auto) 0.5 %; Eosinophils # (auto) 0.18 K/uL (0-0.5); Eosinophils % (auto) 4.4 %; Hematocrit (blood only) 35.4 % (37-47); Hemoglobin 11.8 g/dL (12.0-16.0); Immature Granulocytes # (auto) 0.01 K/uL (0.00-0.02); Immature Granulocytes % (auto) 0.2 %; Lymphocytes # (auto) 1.04 K/uL (1.2-3.4); Lymphocytes % (auto) 25.2 %; Mean Corpuscular Hemoglobin 32.3 pg (25-34); Mean Corpuscular Hgb Conc 33.3 g/dL (32-36); Mean Platelet Volume 9.1 fL (7.4-10.4); Monocytes # (auto) 0.55 K/uL (0.11-0.59); Monocytes % (auto) 13.3 %; Neutrophils # (auto) 2.33 K/uL (1.4-6.5); Neutrophils % (auto) 56.4 %; Platelet Count 187 K/uL (130-400); RDW Coefficient of Variation 14.4 % (11.5-14.5); RDW Standard Deviation 48.8 fL (36.4-46.3); Red Blood Count 3.65 M/uL (4.2-5.4); White Blood Count 4.13 K/uL (4.8-10.8)
[2020-06-16 06:49] LABS: BUN Creatinine Ratio 15.8 (10-20); Calcium 8.3 mg/dl (8.5-10.1); Creatinine Clr Calc Pharmacy 87.4 ml/min; Est GFR (African American) 85.2; Est GFR (Non-African American) 73.5; Magnesium 1.7 mg/dl (1.8-2.4); Potassium 3.8 mmol/L (3.5-5.1)
[2020-06-16] MEDS ORDERED: FOLIC ACID 1 MG TAB PO SCH (09:00)
[2020-06-16] MEDS: THIAMINE HCL 100 MG TAB PO SCH (09:26)
[2020-06-16] MEDS: PANTOprazole 40 MG TAB PO SCH (09:27)
[2020-06-16] MEDS: DOXYCYCLINE HYCLATE 100 MG CAP PO SCH (09:27)
[2020-06-16] MEDS: CHECK CLONIDINE PATCH PLACEMENT SCH (09:27)
[2020-06-16] MEDS: VENLAFAXINE HCL XR 37.5 MG CAPXR PO SCH (09:27)
[2020-06-16] MEDS: ATORVASTATIN 40 MG TAB PO SCH (09:27)
[2020-06-16] MEDS: METOPROLOL SUCC 50MG EXT REL TAB PO SCH (10:00)
--- NOTE | 2020-06-16 10:42 | Cardiology Progress Note ---
Date of Service June 16, 2020 Assessment & Plan (1) Tachyarrhythmia: (2) Mood disorder: (3) Alcohol withdrawal: At this point the patient is maintaining sinus rhythm and I believe has gone through withdrawal. She will of course need counseling going forward but from a cardiac standpoint I believe that she may be discharged to outpatient follow-up. Cardiology signs off the case. Subjective The patient had an uneventful night. Telemetry indicates normal sinus rhythm for the past 24 hours. Review of Systems Review of Systems: All systems reviewed & are unremarkable except as noted in HPI & below Nothing additional to add Physical Exam Physical Exam: General: no acute distress and stated age Head: normocephalic, no masses, lesions, tenderness or abnormalities Eyes: conjunctiva are pink and non-injected, sclera clear Neck: supple, no adenopathy, no bruits, normal jugular venous pulse, no hepatojugular reflux Chest: normal shape and normal respiratory effort Lungs: clear to auscultation and percussion Cardiac Exam: - regular rate & rhythm, no murmurs gallops or rubs - normal S1, normal S2 Pulses: 2(+) throughout Abdomen: abdomen soft, non-tender, no abnormal masses and no hepatosplenomegaly Musculoskeletal: no gait disturbance, no joint inflammation, no deforming arthritis Extremities: no edema and no cyanosis Neuro: grossly normal exam Results & Data Vital Signs (Past 12 Hours) Vital Signs Temp Pulse Pulse Resp BP BP Pulse Ox 06/16/20 07:06 36.7 C 76 19 94/63 L 95 06/16/20 04:30 36.7 C 82 18 111/78 91 06/16/20 00:00 91 H 06/15/20 23:44 37.1 C 92 H 20 125/88 95 Laboratory Results Laboratory Results - last 24 hr 06/16/20 06/16/20 05:31 05:31 WBC 4.13 L RBC 3.65 L Hgb 11.8 L Hct 35.4 L MCV 97.0 MCH 32.3 MCHC 33.3 RDW Std Deviation 48.8 H RDW Coeff of Marybeth 14.4 Plt Count 187 MPV 9.1 Immature Gran % (Auto) 0.2 Neut % (Auto) 56.4 Lymph % (Auto) 25.2 [place] % (Auto) 13.3 Eos % (Auto) 4.4 Baso % (Auto) 0.5 Neut # (Auto) 2.33 Lymph # (Auto) 1.04 L [place] # (Auto) 0.55 Eos # (Auto) 0.18 Baso # (Auto) 0.02 Immature Gran # (Auto) 0.01 Sodium 139 Potassium 3.8 Chloride 110 H Carbon Dioxide 21 Anion Gap 8.0 BUN 14 Creatinine 0.90 Est Cr Clr Drug Dosing 87.4 Est GFR ( Amer) 85.2 Est GFR (Non-Af Amer) 73.5 BUN/Creatinine Ratio 15.8 Glucose 99 Calcium 8.3 L Magnesium 1.7 L Medications Administered Current Inpatient Medications Acetaminophen (Tylenol) 650 mg PO Q4H PRN PRN Reason: Pain or Fever Stop: 07/14/20 14:16 Amitriptyline HCl (Elavil) 50 mg PO HS [facility] Stop: 07/14/20 20:59 Last Admin: 06/15/20 20:59 Dose: 50 mg Documented by: Atorvastatin Calcium (Lipitor) 40 mg PO QAM [facility] Stop: 07/15/20 08:59 Last Admin: 06/16/20 09:27 Dose: 40 mg Documented by: Clonidine HCl (Kxtulyck-Vxq-5 0.3mg/24hr) 1 patch TD CQWK [facility] Stop: 07/14/20 11:14 Last Admin: 06/14/20 11:49 Dose: 1 patch Documented by: Doxycycline Hyclate (Vibramycin) 100 mg PO BID [facility]; Protocol Stop: 06/21/20 20:59 Last Admin: 06/16/20 09:27 Dose: 100 mg Documented by: Folic Acid (Folvite) 1 mg PO QAM [facility] Stop: 07/16/20 08:59 Last Admin: 06/16/20 09:27 Dose: 1 mg Documented by: Gabapentin (Neurontin) 600 mg PO Q12H [facility] Stop: 06/17/20 00:01 Gabapentin (Neurontin) 600 mg PO Q24H [facility] Stop: 06/18/20 00:01 Heparin Sodium (Porcine) (Heparin Sodium (Porcine)) 5,000 units SQ Q8 [facility] Stop: 07/14/20 21:59 Last Admin: 06/16/20 06:04 Dose: 5,000 units Documented by: Lorazepam (Ativan) 1 mg in 2 mls @ 2 mls/min IV UD PRN; Protocol PRN Reason: EtOH Withdrawl AWSS Score 6,7 Stop: 07/14/20 12:33 Lorazepam (Ativan) 2 mg in 4 mls @ 4 mls/min IV UD PRN; Protocol PRN Reason: EtOH Withdrawl AWSS Score 8,9 Stop: 07/14/20 12:33 Lorazepam (Ativan) 3 mg in 6 mls @ 4 mls/min IV ONCE PRN; Protocol PRN Reason: EtOH Withdrawl AWSS Score >=10 Stop: 07/14/20 12:33 Metoprolol Succinate (Toprol Xl) 50 mg PO BID [facility] Stop: 07/15/20 20:59 Last Admin: 06/15/20 20:59 Dose: 50 mg Documented by: Miscellaneous (Remove Clonidine Patch) 1 ea N/A CQWK [facility] Stop: 07/21/20 11:14 Miscellaneous (Check Clonidine Patch) 1 ea N/A QS [facility] Stop: 07/14/20 15:59 Last Admin: 06/16/20 09:27 Dose: 1 ea Documented by: Montelukast Sodium (Singulair) 10 mg PO HS [facility] Stop: 07/14/20 20:59 Last Admin: 06/15/20 20:59 Dose: 10 mg Documented by: Pantoprazole Sodium (Protonix) 40 mg PO QAM [facility] Stop: 07/15/20 08:59 Last Admin: 06/16/20 09:27 Dose: 40 mg Documented by: Polyethylene Glycol (Miralax Powder Packet) 17 gm PO DAILY PRN PRN Reason: Constipation Stop: 07/14/20 14:16 Tamoxifen Citrate (Nolvadex) 20 mg PO QAM [facility] Stop: 07/14/20 14:59 Thiamine HCl (Vitamin B-1) 100 mg PO QAM [facility] Stop: 07/14/20 14:29 Last Admin: 06/16/20 09:26 Dose: 100 mg Documented by: Venlafaxine HCl (Effexor Extended Release) 37.5 mg PO DAILY [facility] Stop: 07/15/20 08:59 Last Admin: 06/16/20 09:27 Dose: 37.5 mg Documented by: (1) Alcohol withdrawal Complication of substance-induced condition: with unspecified complication Qualified Code(s): F10.239 - Alcohol dependence with withdrawal, unspecified
--- NOTE | 2020-06-16 11:16 | Hospitalist Progress Note ---
Date of Service June 16, 2020 Assessment & Plan (1) Tachyarrhythmia: This is a 54-year-old female with PMH of alcohol use disorder, history of paroxysmal SVT in the setting of alcohol withdrawal, breast cancer (s/p surgery and radiation), hypothyroidism, anxiety and depression who presents with rapid heart rate x 3 days. -Palpitations for the past few days, becoming more symptomatic -History of paroxysmal SVT and ventricular tachycardia in setting of alcohol withdrawal and hyperadrenergic state -Seen and evaluated by Dr. Healy. Received 50 mg of metoprolol succinate this morning and HR currently 96. Monitor closely on telemetry -Remains in sinus rhythm with sinus tachycardia around 105 -Clinically a lot better today -We will start her usual home medications of beta-vicky -Heart rate remains stable without any arrhythmias and/or SVT -We will be discharged home this afternoon with beta-vicky (2) Alcohol withdrawal: Still has tremors involving the outstretched hands Feels dizzy while ambulating Continue with gabapentin protocol We will get PT and OT evaluation before discharge We will get gabapentin tapering for alcohol withdrawal symptoms (3) Alcohol dependence: Relapsed 30 days ago, drinking 2 bottles of wine daily with last glass of wine this morning -Serum alcohol level 28.3. Initiated alcohol withdrawal protocol with gabapentin and IV Ativan as needed -History of moderate with withdrawal symptoms including hallucinations but no seizure history -Given banana bag, thiamine and folic acid. Continue IV fluids. Seizure precautions -Appreciate social service input and recommendation -Strongly advised to quit drinking alcohol and keep in touch with alcohol Anonymous group (4) Abnormal TSH: Has not taken Levoxyl in a few weeks due to possible medication reaction while receiving radiation -Patient has spoken to Dr. Puckett of endocrinology, concerned that allergy was possible due to additives in Levoxyl and recommended Tirosint -TSH of 9 today, will repeat tomorrow -Repeat TSH was around 6 -She will have a follow-up appointment with her primary care physician to start thyroid medications (5) Ductal carcinoma in situ (DCIS) of left breast: (6) Ductal carcinoma in situ (DCIS) of right breast: S/p surgical resection and XRT. Recently started on Tamoxifen 11 days ago -Follows with Dr. Vargas. -We will start tamoxifen on discharge (7) Mood disorder: Continue Pristiq and Elavil. Routine psychiatric consult for medication adjustment in setting of severe anxiety Appreciate psychiatric input and recommendation DVT Ppx: SQ heparin Code status: FULL PCP: Anastacio Dispo: Admitted to PCU. Discharge planning ordered. Will be discharged this afternoon Admission and Anticipated Discharge Date Admission Date: June 14, 2020 Subjective The patient was seen and examined in the telemetry unit She complains to have tremors of the hands and dizziness while ambulating Denies any palpitation and/or chest pain Still has some shortness of breath with exertion 06/16/2020 Patient was seen and examined in the telemetry unit She has been feeling a lot better without any significant tremor and no dizziness whenever she is ambulating Denies any palpitation and/or cardiac symptoms Heart rate remains stable without any arrhythmias Review of Systems Review of Systems: All systems reviewed and are unremarkable except as noted below Respiratory: + dyspnea on exertion Cardiovascular: + dyspnea on exertion (Much improved) and + edema (Trace edema bilaterally); no chest pain and no palpitations Physical Exam Physical Exam: Sitting at the edge of the bed without any distress Constitutional: well developed, well nourished and + ill appearing; no acute distress Eyes: PERRL, conjunctivae normal, anicteric sclerae ENMT: external ear and nose normal, oropharynx normal Neck: trachea midline, no thyromegaly Respiratory: normal respiratory effort; no respiratory distress Auscultation: lungs clear to auscultation bilaterally Cardiovascular: Rate/Rhythm: regular rate and regular rhythm Heart Sounds: no murmur Gastrointestinal (Abdomen): Inspection/Auscultation: abdomen normal to inspection and normal bowel sounds; abdomen not distended Percussion/Palpation: abdomen soft Neurologic: moves all extremities; no focal motor deficits Motor/Sensory: + tremor (Minimal or no tremors involving the outstretched hands) Results & Data Results & Data ([facility]) Vital Signs (Past 12 Hours) Vital Signs Temp Pulse Pulse Resp BP BP Pulse Ox 06/16/20 07:06 36.7 C 76 19 94/63 L 95 06/16/20 04:30 36.7 C 82 18 111/78 91 06/16/20 00:00 91 H 06/15/20 23:44 37.1 C 92 H 20 125/88 95 Laboratory Results Short CBC 06/16/20 Range/Units 05:31 WBC 4.13 L (4.8-10.8) K/uL Hgb 11.8 L (12.0-16.0) g/dL Hct 35.4 L (37-47) % Plt Count 187 (130-400) K/uL [facility] 06/16/20 05:31 Sodium 139 Potassium 3.8 Chloride 110 H Carbon Dioxide 21 BUN 14 Creatinine 0.90 Glucose 99 Calcium 8.3 L Medications Administered Current Inpatient Medications Acetaminophen (Tylenol) 650 mg PO Q4H PRN PRN Reason: Pain or Fever Stop: 07/14/20 14:16 Amitriptyline HCl (Elavil) 50 mg PO HS [facility] Stop: 07/14/20 20:59 Last Admin: 06/15/20 20:59 Dose: 50 mg Documented by: Atorvastatin Calcium (Lipitor) 40 mg PO QAM [facility] Stop: 07/15/20 08:59 Last Admin: 06/16/20 09:27 Dose: 40 mg Documented by: Clonidine HCl (Pfyrlolb-Pky-1 0.3mg/24hr) 1 patch TD CQWK [facility] Stop: 07/14/20 11:14 Last Admin: 06/14/20 11:49 Dose: 1 patch Documented by: Doxycycline Hyclate (Vibramycin) 100 mg PO BID [facility]; Protocol Stop: 06/21/20 20:59 Last Admin: 06/16/20 09:27 Dose: 100 mg Documented by: Folic Acid (Folvite) 1 mg PO QAM [facility] Stop: 07/16/20 08:59 Last Admin: 06/16/20 09:27 Dose: 1 mg Documented by: Gabapentin (Neurontin) 600 mg PO Q12H [facility] Stop: 06/17/20 00:01 Gabapentin (Neurontin) 600 mg PO Q24H [facility] Stop: 06/18/20 00:01 Heparin Sodium (Porcine) (Heparin Sodium (Porcine)) 5,000 units SQ Q8 [facility] Stop: 07/14/20 21:59 Last Admin: 06/16/20 06:04 Dose: 5,000 units Documented by: Lorazepam (Ativan) 1 mg in 2 mls @ 2 mls/min IV UD PRN; Protocol PRN Reason: EtOH Withdrawl AWSS Score 6,7 Stop: 07/14/20 12:33 Lorazepam (Ativan) 2 mg in 4 mls @ 4 mls/min IV UD PRN; Protocol PRN Reason: EtOH Withdrawl AWSS Score 8,9 Stop: 07/14/20 12:33 Lorazepam (Ativan) 3 mg in 6 mls @ 4 mls/min IV ONCE PRN; Protocol PRN Reason: EtOH Withdrawl AWSS Score >=10 Stop: 07/14/20 12:33 Metoprolol Succinate (Toprol Xl) 50 mg PO BID [facility] Stop: 07/15/20 20:59 Last Admin: 06/15/20 20:59 Dose: 50 mg Documented by: Miscellaneous (Remove Clonidine Patch) 1 ea N/A CQWK [facility] Stop: 07/21/20 11:14 Miscellaneous (Check Clonidine Patch) 1 ea N/A QS [facility] Stop: 07/14/20 15:59 Last Admin: 06/16/20 09:27 Dose: 1 ea Documented by: Montelukast Sodium (Singulair) 10 mg PO HS [facility] Stop: 07/14/20 20:59 Last Admin: 06/15/20 20:59 Dose: 10 mg Documented by: Pantoprazole Sodium (Protonix) 40 mg PO QAM [facility] Stop: 07/15/20 08:59 Last Admin: 06/16/20 09:27 Dose: 40 mg Documented by: Polyethylene Glycol (Miralax Powder Packet) 17 gm PO DAILY PRN PRN Reason: Constipation Stop: 07/14/20 14:16 Tamoxifen Citrate (Nolvadex) 20 mg PO QAM [facility] Stop: 07/14/20 14:59 Thiamine HCl (Vitamin B-1) 100 mg PO QAM [facility] Stop: 07/14/20 14:29 Last Admin: 06/16/20 09:26 Dose: 100 mg Documented by: Venlafaxine HCl (Effexor Extended Release) 37.5 mg PO DAILY [facility] Stop: 07/15/20 08:59 Last Admin: 06/16/20 09:27 Dose: 37.5 mg Documented by: (1) Alcohol withdrawal Complication of substance-induced condition: with unspecified complication Qualified Code(s): F10.239 - Alcohol dependence with withdrawal, unspecified
[2020-06-16 11:49] VITALS: BP 137/100; PULSE 85; TEMP 98.2; O2SAT 98
[2020-06-16] MEDS ORDERED: GABAPENTIN 600 MG TAB PO SCH (12:00)
[2020-06-18] MEDS ORDERED: GABAPENTIN 600 MG TAB PO SCH
--- NOTE | 2020-06-18 13:11 | Electrocardiogram Report ---
Test Reason : Blood Pressure : / mmHG Vent. Rate : 081 BPM Atrial Rate : 081 BPM P-R Int : 180 ms QRS Dur : 078 ms QT Int : 400 ms P-R-T Axes : 073 076 058 degrees QTc Int : 465 ms Normal sinus rhythm Prolonged QT Abnormal ECG When compared with ECG of 15-JUN-2020 12:41, No significant change was found Confirmed by Russ Hodges ([id number]) on 06/18/2020 1:11:32 PM Referred By: REFERRED SELF Confirmed By:Russ Hodges
--- NOTE | 2020-06-18 16:23 | Discharge Summary ---
Date of Service June 18, 2020 Admission HPI Per Admitting Provider This is a 54-year-old female with PMH of alcohol use disorder, history of paroxysmal SVT in the setting of alcohol withdrawal, breast cancer (s/p surgery and radiation), hypothyroidism, anxiety and depression who presents with rapid heart rate x 3 days. Patient first woke up with increased heart rate 3 days ago but has since developed associated lightheadedness, visual changes and dyspnea on exertion. Was concerned that tamoxifen, which she recently started taking for breast cancer 11 days ago, was interacting with amitriptyline and causing arrhythmia, so she came into ED for further evaluation. Did take 50 mg of metoprolol succinate this morning prior to arrival. Has history of alcohol use with inpatient rehab this past November followed by outpatient rehab. Relapsed 30 days ago and has been drinking 2 bottles of wine daily, with last glass of wine this morning. Feels anxious and jittery at this point in time. History of hallucinations in setting of withdrawal but denies any seizures. Does have history of developing SVT in the setting of alcohol withdrawal during admission back in November 2019. Currently patient feels anxious with some dyspnea on exertion. No longer experiencing lightheadedness or palpitations. Denies any fever, chills, cough, headache, confusion, chest pain, abdominal pain, nausea, vomiting, dysuria, diarrhea or constipation. Admission Exam Per Admitting Provider Physical Exam: General Appearance: WD/WN, vitals as above, anxious, flushed, conversing easily Head: normocephalic, atraumatic Eyes: normal inspection, PERRL, conjunctivae normal, anicteric sclerae ENT: external ear and nose normal, oropharynx normal Neck: trachea midline, no thyromegaly normal visual inspection Respiratory: normal respiratory effort, expiratory wheezing at bases, otherwise clear to auscultation. No rales, rhonchi. Normal insp/exp effort, no accessory muscle use Cardiovascular: Tachycardic, regular rhythm, no murmur appreciated, normal peripheral pulses. 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 Discharge Exam Constitutional well developed, well nourished and + ill appearing; no acute distress Eyes PERRL, conjunctivae normal, anicteric sclerae ENMT external ear and nose normal, oropharynx normal Neck trachea midline, no thyromegaly Respiratory normal respiratory effort; no respiratory distress Auscultation: lungs clear to auscultation bilaterally Cardiovascular Rate/Rhythm: regular rate and regular rhythm Heart Sounds: no murmur Gastrointestinal (Abdomen) Inspection/Auscultation: abdomen normal to inspection and normal bowel sounds; abdomen not distended Percussion/Palpation: abdomen soft Neurologic moves all extremities; no focal motor deficits Motor/Sensory: + tremor (Minimal or no tremors involving the outstretched hands) Discharge Data Allergies Allergy/AdvReac Type Severity Reaction Status Date / Time levothyroxine Allergy Severe facial Unverified 06/14/20 11:48 swelling minocycline [From Minocin] Allergy Mild Rash Verified 06/14/20 11:41 Sulfa (Sulfonamide Allergy Unknown PT DOESN'T Verified 06/14/20 11:41 Antibiotics) REMEMBER REACTION Consultations 06/14/20 12:05 Consult Cardiology Stat 06/14/20 12:11 ED Decision to Admit Stat 06/14/20 14:17 Consult Case Management - Discharge Planning Routine Consult Psychiatry Routine Hospital Course (1) Tachyarrhythmia: This is a 54-year-old female with PMH of alcohol use disorder, history of paroxysmal SVT in the setting of alcohol withdrawal, breast cancer (s/p surgery and radiation), hypothyroidism, anxiety and depression who presents with rapid heart rate x 3 days. -Palpitations for the past few days, becoming more symptomatic -History of paroxysmal SVT and ventricular tachycardia in setting of alcohol withdrawal and hyperadrenergic state -Seen and evaluated by Dr. Healy. Received 50 mg of metoprolol succinate this morning and HR currently 96. Monitor closely on telemetry -Remains in sinus rhythm with sinus tachycardia around 105 -Clinically a lot better today -We will start her usual home medications of beta-vicky -Heart rate remains stable without any arrhythmias and/or SVT -We will be discharged home this afternoon with beta-vicky (2) Alcohol withdrawal: Still has tremors involving the outstretched hands Feels dizzy while ambulating Continue with gabapentin protocol We will get PT and OT evaluation before discharge We will get gabapentin tapering for alcohol withdrawal symptoms (3) Alcohol dependence: Relapsed 30 days ago, drinking 2 bottles of wine daily with last glass of wine this morning -Serum alcohol level 28.3. Initiated alcohol withdrawal protocol with ga bapentin and IV Ativan as needed -History of moderate with withdrawal symptoms including hallucinations but no seizure history -Given banana bag, thiamine and folic acid. Continue IV fluids. Seizure p recautions -Appreciate social service input and recommendation -Strongly advised to quit drinking alcohol and keep in touch with alcohol Anonymous group (4) Abnormal TSH: Has not taken Levoxyl in a few weeks due to possible medication reaction while receiving radiation -Patient has spoken to Dr. Puckett of endocrinology, concerned that allergy was possible due to additives in Levoxyl and recommended Tirosint -TSH of 9 today, will repeat tomorrow -Repeat TSH was around 6 -She will have a follow-up appointment with her primary care physician to start thyroid medications (5) Ductal carcinoma in situ (DCIS) of left breast: (6) Ductal carcinoma in situ (DCIS) of right breast: S/p surgical resection and XRT. Recently started on Tamoxifen 11 days ago -Follows with Dr. Vargas. -We will start tamoxifen on discharge (7) Mood disorder: Continue Pristiq and Elavil. Routine psychiatric consult for medication adjustment in setting of severe anxiety Appreciate psychiatric input and recommendation DVT Ppx: SQ heparin Code status: FULL PCP: Anastacio Dispo: Admitted to PCU. Discharge planning ordered. 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 ) Diet: Heart Healthy Addtl Attending Provider Instructions: Please take precaution to avoid falls Strongly advised to quit drinking alcohol altogether Strongly advised to have follow-up with alcohol Anonymous group Pending Studies at Discharge: No Stand-Alone Forms: My [facility], Work/School Release (Inpt), Smoking Cessation Medications and DC Order Prescriptions: New metoprolol succinate 50 mg Tablet Extended Release 24 Hr 50 mg PO BID Qty: 60 RF: 0 gabapentin 600 mg Tablet 600 mg PO UD Qty: 2 RF: 0 thiamine HCl (vitamin B1) [Vitamin B-1] 100 mg Tablet 100 mg PO QAM 30 Days Qty: 30 RF: 0 folic acid 1 mg Tablet 1 mg PO QAM 30 Days Qty: 30 RF: 0 Continued albuterol sulfate 90 mcg/actuation HFA aerosol inhaler 2 puffs INH Q4H PRN (Reason: shortness of breath or wheezing) RF: 0 amitriptyline 50 mg tablet 50 mg PO HS RF: 0 omeprazole magnesium [Prilosec OTC] 20 mg Tablet,Delayed Release (Dr/Ec) 20 mg PO QAM RF: 0 desvenlafaxine succinate [Pristiq] 50 mg Tablet Extended Release 24 Hr 50 mg PO QAM RF: 0 gabapentin 100 mg capsule 100 mg PO QID PRN (Reason: anxiety) RF: 0 atorvastatin 40 mg tablet 40 mg PO QAM RF: 0 doxycycline hyclate 100 mg capsule 100 mg PO BID RF: 0 montelukast 10 mg tablet 10 mg PO HS RF: 0 tamoxifen 20 mg tablet 20 mg PO QAM RF: 0 Discontinued metoprolol succinate 25 mg tablet extended release 24 hr 25 mg PO BID RF: 0 Discharge Orders: Discharge Order (Routine); Ordered 06/16/20 Ordered By: Stu Santacruz Admission Data Admit Date/Time: 06/14/20 12:33 Attending Provider: Stu Santacruz Admit Provider: Franco Freeman Primary Care Provider: Aidan Chaves Other Providers: Franco Freeman ; Harpreet Healy ; Johnny López ; Sandy Eduardo ; Bret Benitez ; Hung Belle ; Merlin Andrews ; Lilly Harrison ; Harpreet Aleman ; Ashia Davis ; Fartun Hutchison ; Roselia Marie ; Janelle Arnett ; Frandy Coe I. ; Dania Kong ; Laura Schroeder ; Irene Akins ; Casa [place] Other Interventions: Discharge Summary Assessment (RN) Last Done: 06/16/20 13:11 DC Date/Time DO NOT enter until pt leaves facility: 06/16/20 14:25
== END 2020-06-16 14:25 | disposition home or self-care (01) | DRG 897 ==
LOC: ED 10:33 → 2S 12:33 → SUATTDRO 12:33 → 2S 13:14

== ENCOUNTER 2020-10-26 11:22 | Inpatient (IN) ==
[2020-10-26] MEDS ORDERED: MULTI-VITAMIN INFUSION 10 ML, THIAMINE HCL 100 MG, FOLIC ACID 1 MG in SODIUM CHLORIDE 0... IV ONE (12:02)
[2020-10-26 12:32] LABS: Basophils # (auto) 0.04 K/uL (0-0.2); Basophils % (auto) 0.5 %; Eosinophils # (auto) 0.04 K/uL (0-0.5); Eosinophils % (auto) 0.5 %; Hematocrit (blood only) 45.9 % (37-47); Immature Granulocytes # (auto) 0.01 K/uL (0.00-0.02); Immature Granulocytes % (auto) 0.1 %; Lymphocytes # (auto) 1.07 K/uL (1.2-3.4); Lymphocytes % (auto) 13.8 %; Mean Corpuscular Hemoglobin 32.9 pg (25-34); Mean Corpuscular Hgb Conc 34.9 g/dL (32-36); Mean Corpuscular Volume 94.4 fL (80-100); Mean Platelet Volume 9.1 fL (7.4-10.4); Monocytes # (auto) 0.47 K/uL (0.11-0.59); Neutrophils # (auto) 6.14 K/uL (1.4-6.5); Neutrophils % (auto) 79.1 %; Platelet Count 276 K/uL (130-400); RDW Coefficient of Variation 14.2 % (11.5-14.5); RDW Standard Deviation 48.1 fL (36.4-46.3); Red Blood Count 4.86 M/uL (4.2-5.4); White Blood Count 7.77 K/uL (4.8-10.8)
[2020-10-26 12:52] LABS: Alanine Aminotransferase 83 U/L (12-78); Albumin Level 4.3 gm/dl (3.4-5.0); Aspartate Aminotransferase 74 U/L (15-37); Blood Urea Nitrogen 9 mg/dl (7-18); Calcium 8.7 mg/dl (8.5-10.1); Carbon Dioxide 23 mmol/L (21-32); Chloride 100 mmol/L (98-107); Creatinine Clr Calc Pharmacy 74.6 ml/min; Est GFR (African American) 76.3; Est GFR (Non-African American) 65.9; Glucose 138 mg/dl (70-99); Lipase 92 U/L (73-393); Magnesium 2.1 mg/dl (1.8-2.4); Sodium 137 mmol/L (136-145)
[2020-10-26 12:59] LABS: Alkaline Phosphatase 89 U/L (45-117); Bilirubin,Total 0.6 mg/dl (0.2-1); Globulin 4.4 gm/dl (2.5-4.0); Phosphorus 3.8 mg/dl (2.5-4.9); Total Protein 8.7 gm/dl (6.4-8.2)
[2020-10-26 13:21] LABS: Appearance Urine Clear (Clear); Bacteria Urine Automated Negative (Negative); Bilirubin Urine Negative (Negative); Blood Urine Negative (Negative); Color Urine Yellow; Epithelial Cell Urine Auto >30 /lpf (0-5); Glucose Urine UA Negative (Negative); Ketones Urine 1+ (Negative); Leukocyte Esterase Urine Negative (Negative); Nitrite Urine Negative (Negative); Protein Urine Trace (Negative); RBC Urine Automated 0-4 /hpf (0-4); Specific Gravity Urine 1.016 (1.000-1.030); Urobilinogen Urine Negative (Negative)
[2020-10-26] MEDS ORDERED: LORazepam 1 MG TAB SL STA ×2 (13:47→15:46)
[2020-10-26] MEDS ORDERED: chlordiazePOXIDE HCl 25 MG CAP PO ONE ×2 (13:52→15:46)
--- NOTE | 2020-10-26 15:02 | Emergency Department Note ---
Impression & Plan Alcohol dependence, Alcohol withdrawal, Tachycardia, Dehydration ED Provider Note NAME: KAUSHAL ROBLEDO AGE: 55 SEX: F ARRIVES VIA: Walk-In INFORMANT: Patient, ED PROVIDER(S): Leonid Stoll MD CHIEF COMPLAINT: Alcohol withdrawal. PLAN: Disposition: Admit MEDICAL DECISION MAKING: The patient is a pleasant 52-year-old woman with a past medical history of alcohol abuse/dependence who presents emergency department requesting assistance for placement in alcohol rehab and management of withdrawal which she anticipates she will develop as she drinks 2-3 bottles of wine daily. She reports she decided to come in today with the support of her friends from . She denies any recent illness including denies fevers, chills, cough, geri estion, GI or symptoms. On arrival the patient is slightly anxious appearing no acute distress, afebrile with heart in the 120s but vital signs otherwise stable. She appears clinically dry. She has no overt withdrawal syndrome at this time. She has no focal neuro deficits. Reflexes within normal limits. There is no clonus. WBC, H/H and platelets within normal limits. Chemistry without metabolic acidosis. Electrolytes unremarkable. LFTs slightly elevated similar to prior. Total bilirubin within normal limits. TSH within normal limits. UA with ketones consistent with the patient's clinically dry appearance. Otherwise no evidence of infection. Patient blood alcohol was 376 and in the setting of being completely awake and alert suggestive of longstanding alcohol dependence and abuse. She would start to develop symptoms of withdrawal during the course of her observation despite her high blood alcohol level which were treated prophylactically while searching for rehab placement. She was provided with banana bag as well as Librium and Ativan. Ultimately she was able to confirm a bed placement at [facility] and her AA would be able to drive her tomorrow morning. Fortunately upon reevaluation the patient's heart rate did remain persistently elevated in the 140s. She was given additional IV fluid hydration but unfortunately remained tachycardic and was beginning to have increased tremulousness despite prophylactic treatment with Librium and Ativan. Therefore reasonable to admit the patient for alcohol withdrawal given high risk for severe withdrawal symptoms given evidence of longstanding dependence. Patient is agreeable with this. Case was discussed with Brit Birmingham PAC, with Dr. Kera Perea hospitalist who will evaluate the patient for admission. Triage Nursing notes reviewed and agree them. Prior medical records reviewed Vital Signs: reviewed and remarkable for tachycardia. Differential diagnosis: Overdose, toxicologic, infection, hypoglycemia, electrolyte abnormalities, cardiac sources, intracerebral event, neurologic, trauma, as well as other pathologies. ER treatment provided: See below. Diagnostics interpreted by me: ECG: Sinus tachycardia, 123 bpm, no ectopy, no overt ST elevation or depression, QTC 438, QRS 86. Cardiac Monitoring: An order for continuous cardiac monitoring was placed and demonstrated sinus tachycardia, 142 bpm, no ectopy. Laboratory studies: See below Imaging studies: See below Consultation(s): Rachel Mohan, Brit PAC, with Dr. Kera Perea hospitalist HPI: The patient is a pleasant 52-year-old woman with a past medical history of alcohol abuse/dependence who presents emergency department requesting assistance for placement in alcohol rehab and management of withdrawal which she antic ipates she will develop as she drinks 2-3 bottles of wine daily. She reports she decided to come in today with the support of her friends from . She denies any recent illness including denies fevers, chills, cough, congestion, GI or symptoms. ROS: See above HPI for pertinent positives & negatives. A total of 10 systems reviewed and were otherwise negative. PAST MEDICAL HISTORY:See Below PAST SURGICAL HISTORY:See Below FAMILY HISTORY:See Below SOCIAL HISTORY:See Below HOME MEDICATIONS:See Below ALLERGIES:See Below VITALS:See Below PHYSICAL EXAMINATION: GENERAL: Awake, alert, anxious-appearing, in no distress HENT: Normocephalic, atraumatic. Oropharynx with dry mucous membranes and otherwise unremarkable. EYES: Normal conjunctiva. Sclera non-icteric. NECK: Supple. No nuchal rigidity. FROM. No JVD. RESPIRATORY: Clear to auscultation. CARDIAC: Tachycardic rate, normal rhythm. Extremities warm and well perfused. Pulses equal. ABDOMEN: Soft, non-distended. No tenderness to palpation. No rebound or guarding. No masses. RECTAL: Deferred. MUSCULOSKELETAL: Chest examination reveals no tenderness. The back is symmetrical on inspection without obvious abnormality. There is no CVA tenderness to palpation. No joint edema. LOWER EXTREMITIES: Calves are equal size bilaterally and non-tender. No edema. No discoloration. NEURO: Normal sensorium. No sensory or motor deficits noted. DTRs wnl. No clonus. SKIN: No rash or jaundice noted. ED COURSE: Critical Care: I have personally spent greater than 45 minutes of critical care time in the direct management of this patient. This includes bedside care, interpretation of diagnostic studies, and testing, discussion with consultants, patient, and family members, and other required patient management activities. This 45 minutes is in excess of all separately billable procedures. 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 EGD exam- Normal examined duodenum. Bilious gastric fluid. Mild gastritis ? bilious etiology. Bx neg for H. pylori. Prominent fold just distal to GEJ. Bx- Squamocolumnar mucosa with mild carditis and hyperplastic changes. Negative for intestinal metaplasia and dysplasia. Medium sized hiatus hernia." On 03/10/17 15:26 Rita España wrote "07/04/2009- EUS exam- No choledocholithiasis, No masses appreciated in the entire pancreas. EGD exam- Normal examined duodenum. Bilious gastric fluid. M ild gastritis ? bilious etiology. This was biopsied to r/o H Pylori. Prominent fold just distal to GEJ. This was biopsied. Medium sized hiatus hernia." History of breast biopsy 11/30/2019 - Left Breast 02/08/2020 - Right Breast History of breast lump/mass excision 02/15/2020 - Right Breast History of dilation and curettage 2003 - s/p miscarriage History of lumpectomy of left breast 02/15/2020 History of lumpectomy of right breast 03/28/2020 History of mandibular surgery 1986 History of surgery 05/07/2016 - Anal Tag Removal S/P laparoscopic cholecystectomy 02/23/2004 Family History Mother Breast cancer, Onset Age: 76 Currently battling metastatic breast cancer Grandmother (Paternal) , Passed age 93 of stomach cancer No problems noted. Grandfather (Maternal) , Passed age 72 of colon cancer No problems noted. Father , Passed age 67 of complications from menigioma No problems noted. Aunt Breast cancer, Onset Age: 34 Alive and well Aunt Breast cancer, Onset Age: 62 alive and well Aunt Breast cancer, Onset Age: 62 Alive and well Brother Stroke Dementia Sister No problems noted. Son No problems noted. 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 Feels Safe at Home: Yes Childhood Exposure to Second-Hand Smoke: Yes (Mom ) caffeine: Yes (daily ) during the past year weight has: remained stable Dental Care, Regularly: Yes Assistive Devices: None Allergies Allergies Allergy/AdvReac Type Severity Reaction Status Date / Time levothyroxine Allergy Severe facial Unverified 10/26/20 12:21 swelling minocycline [From Minocin] Allergy Mild Rash Verified 10/26/20 12:21 Sulfa (Sulfonamide Allergy Unknown PT DOESN'T Verified 10/26/20 12:21 Antibiotics) REMEMBER REACTION Home Meds Home Medications Medication Instructions Recorded Confirmed amitriptyline 50 mg PO HS 12/13/19 10/26/20 desvenlafaxine succinate [Pristiq] 50 mg PO QAM 12/13/19 10/26/20 omeprazole magnesium [Prilosec OTC] 20 mg PO QAM 12/13/19 10/26/20 atorvastatin 40 mg PO QAM 04/08/20 10/26/20 doxycycline hyclate 100 mg PO BID 04/08/20 10/26/20 gabapentin 100 mg capsule 200 mg PO BID 04/10/20 10/26/20 montelukast 10 mg tablet 10 mg PO HS tab 04/10/20 10/26/20 tamoxifen 20 mg PO QAM 06/14/20 10/26/20 levothyroxine [Tirosint] 25 mcg PO QAM 07/12/20 10/26/20 Previous Rx's Medication Instructions Recorded metoprolol succinate 50 mg PO BID #60 tab 06/16/20 Results & Data (ED) Vital Signs Vital Signs - 24 hr 10/26/20 11:30 10/26/20 11:49 10/26/20 11:53 Pulse Rate 132 H 114 H 114 H Pulse Rate from SpO2 Sensor 114 H 114 H Respiratory Rate 20 17 14 Respiratory Effort / Characteristics Non-Labored Respiratory Depth Normal Blood Pressure 139/86 140/86 Blood Pressure Mean 103 114 Pulse Oximetry 98 97 96 Oxygen Delivery Method Room Air Sepsis Recent Fever Within 48 Hours No Sepsis New/Unexplained Change in Mental Status N/A Sepsis Action Taken by Nursing No Action Required 10/26/20 12:00 10/26/20 12:01 10/26/20 12:06 Pulse Rate 109 H 110 H Pulse Rate from SpO2 Sensor 109 H 110 H Respiratory Rate 17 13 Respiratory Effort / Characteristics Respiratory Depth Blood Pressure 124/90 Blood Pressure Mean 102 Pulse Oximetry 96 96 97 Oxygen Delivery Method Room Air Sepsis Recent Fever Within 48 Hours Sepsis New/Unexplained Change in Mental Status Sepsis Action Taken by Nursing 10/26/20 12:30 10/26/20 13:04 10/26/20 13:30 Pulse Rate 108 H 130 H 124 H Pulse Rate from SpO2 Sensor Respiratory Rate 18 18 14 Respiratory Effort / Characteristics Respiratory Depth Blood Pressure 170/104 H Blood Pressure Mean 129 Pulse Oximetry Oxygen Delivery Method Sepsis Recent Fever Within 48 Hours Sepsis New/Unexplained Change in Mental Status Sepsis Action Taken by Nursing 10/26/20 13:31 10/26/20 14:00 10/26/20 14:01 Pulse Rate 123 H 122 H 122 H Pulse Rate from SpO2 Sensor Respiratory Rate 22 15 19 Respiratory Effort / Characteristics Respiratory Depth Blood Pressure 149/96 H Blood Pressure Mean 103 Pulse Oximetry Oxygen Delivery Method Sepsis Recent Fever Within 48 Hours Sepsis New/Unexplained Change in Mental Status Sepsis Action Taken by Nursing 10/26/20 14:30 10/26/20 14:31 10/26/20 15:00 Pulse Rate 124 H 126 H 125 H Pulse Rate from SpO2 Sensor Respiratory Rate 20 22 24 Respiratory Effort / Characteristics Respiratory Depth Blood Pressure 136/78 131/83 Blood Pressure Mean 102 87 Pulse Oximetry Oxygen Delivery Method Sepsis Recent Fever Within 48 Hours Sepsis New/Unexplained Change in Mental Status Sepsis Action Taken by Nursing 10/26/20 15:01 10/26/20 15:30 10/26/20 16:00 Pulse Rate 124 H 143 H 130 H Pulse Rate from SpO2 Sensor Respiratory Rate 21 24 22 Respiratory Effort / Characteristics Respiratory Depth Blood Pressure Blood Pressure Mean Pulse Oximetry Oxygen Delivery Method Sepsis Recent Fever Within 48 Hours Sepsis New/Unexplained Change in Mental Status Sepsis Action Taken by Nursing 10/26/20 16:30 10/26/20 17:00 10/26/20 17:24 Pulse Rate 143 H 141 H 141 H Pulse Rate from SpO2 Sensor Respiratory Rate 21 24 18 Respiratory Effort / Characteristics Respiratory Depth Blood Pressure 152/101 H Blood Pressure Mean 106 Pulse Oximetry Oxygen Delivery Method Sepsis Recent Fever Within 48 Hours Sepsis New/Unexplained Change in Mental Status Sepsis Action Taken by Nursing 10/26/20 17:25 10/26/20 17:30 Pulse Rate 140 H 142 H Pulse Rate from SpO2 Sensor Respiratory Rate 16 21 Respiratory Effort / Characteristics Respiratory Depth Blood Pressure Blood Pressure Mean Pulse Oximetry Oxygen Delivery Method Sepsis Recent Fever Within 48 Hours Sepsis New/Unexplained Change in Mental Status Sepsis Action Taken by Nursing Laboratory Data Attestation: I reviewed the patient's lab results. Result diagrams: 10/26/20 12:08 10/26/20 12:08 Lab Results 10/26/20 10/26/20 10/26/20 Range/Units 12:08 12:08 12:08 WBC 7.77 (4.8-10.8) K/uL RBC 4.86 (4.2-5.4) M/uL Hgb 16.0 (12.0-16.0) g/dL Hct 45.9 (37-47) % MCV 94.4 (80-100) fL MCH 32.9 (25-34) pg MCHC 34.9 (32-36) g/dL RDW Std Deviation 48.1 H (36.4-46.3) fL RDW Coeff of Marybeth 14.2 (11.5-14.5) % Plt Count 276 (130-400) K/uL MPV 9.1 (7.4-10.4) fL Immature Gran % (Auto) 0.1 % Neut % (Auto) 79.1 % Lymph % (Auto) 13.8 % Nash % (Auto) 6.0 % Eos % (Auto) 0.5 % Baso % (Auto) 0.5 % Neut # (Auto) 6.14 (1.4-6.5) K/uL Lymph # (Auto) 1.07 L (1.2-3.4) K/uL Nash # (Auto) 0.47 (0.11-0.59) K/uL Eos # (Auto) 0.04 (0-0.5) K/uL Baso # (Auto) 0.04 (0-0.2) K/uL Immature Gran # (Auto) 0.01 (0.00-0.02) K/uL Sodium 137 (136-145) mmol/L Potassium 4.0 (3.5-5.1) mmol/L Chloride 100 (98-107) mmol/L Carbon Dioxide 23 (21-32) mmol/L Anion Gap 14.0 H (3-11) BUN 9 (7-18) mg/dl Creatinine 0.98 (0.6-1.2) mg/dl Est Cr Clr Drug Dosing 74.6 ml/min Est GFR ( Amer) 76.3 Est GFR (Non-Af Amer) 65.9 BUN/Creatinine Ratio 9.0 L (10-20) Glucose 138 H (70-99) mg/dl Calcium 8.7 (8.5-10.1) mg/dl Phosphorus 3.8 (2.5-4.9) mg/dl Magnesium 2.1 (1.8-2.4) mg/dl Total Bilirubin 0.6 (0.2-1) mg/dl Direct Bilirubin TNP AST 74 H (15-37) U/L ALT 83 H (12-78) U/L Alkaline Phosphatase 89 (45-117) U/L Total Protein 8.7 H (6.4-8.2) gm/dl Albumin 4.3 (3.4-5.0) gm/dl Globulin 4.4 H (2.5-4.0) gm/dl Albumin/Globulin Ratio 1.0 (0.9-2) Lipase 92 (73-393) U/L TSH 2.850 (0.300-4.500) uIu/ml Specimen Hemolysis Urine Color Urine Appearance (Clear) Urine pH (4.5-7.5) Ur Specific [place] (1.000-1.030) Urine Protein (Negative) Urine Glucose (UA) (Negative) Urine Ketones (Negative) Urine Blood (Negative) Urine Nitrite (Negative) Urine Bilirubin (Negative) Urine Urobilinogen (Negative) Ur Leukocyte Esterase (Negative) Urine WBC (Auto) (0-5) /hpf Urine RBC (Auto) (0-4) /hpf U Hyaline Cast (Auto) (0-5) /lpf U Epithel Cells (Auto) (0-5) /lpf Urine Bacteria (Auto) (Negative) Ethyl Alcohol mg/dL 376.7 H (0-3) mg/dl 10/26/20 Range/Units 13:05 WBC (4.8-10.8) K/uL RBC (4.2-5.4) M/uL Hgb (12.0-16.0) g/dL Hct (37-47) % MCV (80-100) fL MCH (25-34) pg MCHC (32-36) g/dL RDW Std Deviation (36.4-46.3) fL RDW Coeff of Marybeth (11.5-14.5) % Plt Count (130-400) K/uL MPV (7.4-10.4) fL Immature Gran % (Auto) % Neut % (Auto) % Lymph % (Auto) % Nash % (Auto) % Eos % (Auto) % Baso % (Auto) % Neut # (Auto) (1.4-6.5) K/uL Lymph # (Auto) (1.2-3.4) K/uL Nash # (Auto) (0.11-0.59) K/uL Eos # (Auto) (0-0.5) K/uL Baso # (Auto) (0-0.2) K/uL Immature Gran # (Auto) (0.00-0.02) K/uL Sodium (136-145) mmol/L Potassium (3.5-5.1) mmol/L Chloride (98-107) mmol/L Carbon Dioxide (21-32) mmol/L Anion Gap (3-11) BUN (7-18) mg/dl Creatinine (0.6-1.2) mg/dl Est Cr Clr Drug Dosing ml/min Est GFR ( Amer) Est GFR (Non-Af Amer) BUN/Creatinine Ratio (10-20) Glucose (70-99) mg/dl Calcium (8.5-10.1) mg/dl Phosphorus (2.5-4.9) mg/dl Magnesium (1.8-2.4) mg/dl Total Bilirubin (0.2-1) mg/dl Direct Bilirubin AST (15-37) U/L ALT (12-78) U/L Alkaline Phosphatase (45-117) U/L Total Protein (6.4-8.2) gm/dl Albumin (3.4-5.0) gm/dl Globulin (2.5-4.0) gm/dl Albumin/Globulin Ratio (0.9-2) Lipase (73-393) U/L TSH (0.300-4.500) uIu/ml Specimen Hemolysis Urine Color Yellow Urine Appearance Clear (Clear) Urine pH 5.0 (4.5-7.5) Ur Specific [place] 1.016 (1.000-1.030) Urine Protein Trace H (Negative) Urine Glucose (UA) Negative (Negative) Urine Ketones 1+ H (Negative) Urine Blood Negative (Negative) Urine Nitrite Negative (Negative) Urine Bilirubin Negative (Negative) Urine Urobilinogen Negative (Negative) Ur Leukocyte Esterase Negative (Negative) Urine WBC (Auto) 1-5 (0-5) /hpf Urine RBC (Auto) 0-4 (0-4) /hpf U Hyaline Cast (Auto) 1-5 (0-5) /lpf U Epithel Cells (Auto) >30 H (0-5) /lpf Urine Bacteria (Auto) Negative (Negative) Ethyl Alcohol mg/dL (0-3) mg/dl Administered Medications Discontinued Medications Chlordiazepoxide HCl (Chlordiazepoxide Hcl 25 Mg Cap) 25 mg PO NOW ONE Stop: 10/26/20 13:53 Last Admin: 10/26/20 13:56 Dose: 25 mg Documented by: [id number] Chlordiazepoxide HCl (Chlordiazepoxide Hcl 25 Mg Cap) 50 mg PO NOW ONE Stop: 10/26/20 15:47 Last Admin: 10/26/20 15:51 Dose: 50 mg Documented by: [id number] Multivitamins 10 ml/ Thiamine HCl 100 mg/ Folic Acid 1 mg/Sodium Chloride 1,011.2 mls @ 1,011.2 mls/hr IV .Q1H ONE Stop: 10/26/20 13:01 Last Infusion: 10/26/20 14:18 Dose: 0 mls/hr Documented by: [id number] Admin: 10/26/20 13:10 Dose: 1,011.2 mls/hr Documented by: [id number] Sodium Chloride (Nss 1000ml) 1,000 mls @ 999 mls/hr IV .Q1H1M ONE Stop: 10/26/20 17:32 Last Infusion: 10/26/20 18:16 Dose: 0 mls/hr Documented by: [id number] Admin: 10/26/20 16:36 Dose: 999 mls/hr Documented by: [id number] Lorazepam (Ativan) 2 mg in 4 mls @ 4 mls/min IV NOW STA Stop: 10/26/20 17:39 Last Admin: 10/26/20 18:15 Dose: 4 mls/min Documented by: [id number] Lorazepam (Lorazepam 1 Mg Tab) 1 mg SL NOW STA Stop: 10/26/20 13:48 Last Admin: 10/26/20 14:14 Dose: 1 mg Documented by: [id number] Lorazepam (Lorazepam 1 Mg Tab) 2 mg SL NOW STA Stop: 10/26/20 15:47 Last Admin: 10/26/20 15:51 Dose: 2 mg Documented by: [id number] Discharge Plan Visit Data Chief Complaint: Alcohol Withdrawal Stated Complaint: WITHDRAWL ED Provider: Leonid Stoll Discharge Problem: Alcohol dependence, Alcohol withdrawal, Tachycardia, Dehydration Patient Disposition: Home - Self-Care Discharge Instructions Morgan/Other Patient Handouts: Alcohol Addiction, ED Alcohol Withdrawal Activity Restrictions/Additional Instructions: Please continue with your plan to enter alcohol detox. Our case management team has help facilitate your acceptance to rehab. You should also follow up with your primary care physician upon completion of your program for re-evaluation. You were seen the emergency department for medical clearance to enter alcohol rehab. Otherwise, your exam and lab results did not show signs of an emergent condition at this time. Drink plenty of fluids to ensure hydration. Return to the emergency department for worsening symptoms as described in the accompanying instructions. Forms Stand Alone Forms: My [facility], Suicide Prevention Resources, Virtual Emergency Department, Important Visit Information Prescriptions Prescriptions: No Action amitriptyline 50 mg tablet 50 mg PO HS RF: 0 omeprazole magnesium [Prilosec OTC] 20 mg Tablet,Delayed Release (Dr/Ec) 20 mg PO QAM RF: 0 desvenlafaxine succinate [Pristiq] 50 mg Tablet Extended Release 24 Hr 50 mg PO QAM RF: 0 Tirosint 25 mcg capsule 25 mcg PO QAM RF: 0 gabapentin 100 mg capsule 200 mg PO BID RF: 0 atorvastatin 40 mg tablet 40 mg PO QAM RF: 0 doxycycline hyclate 100 mg capsule 100 mg PO BID RF: 0 montelukast 10 mg tablet 10 mg PO HS RF: 0 tamoxifen 20 mg tablet 20 mg PO QAM RF: 0 metoprolol succinate 50 mg Tablet Extended Release 24 Hr 50 mg PO BID Qty: 60 RF: 0 Referrals Referrals: Aditi Avila PA-C [Primary Care Provider] - Discharge Problem: Alcohol dependence Qualifiers: Substance use status: in withdrawal Complication of substance-induced condition: with unspecified complication Qualified Code(s): F10.239 - Alcohol dependence with withdrawal, unspecified Alcohol withdrawal Qualifiers: Complication of substance-induced condition: with unspecified complication Qualified Code(s): F10.239 - Alcohol dependence with withdrawal, unspecified
[2020-10-26] MEDS ORDERED: SODIUM CHLORIDE 0.9% 1000ML 1,000 ML IV ONE (16:32)
[2020-10-26] MEDS ORDERED: LORazepam 2 MG/4 ML VIAL IV STA (17:38)
[2020-10-26] MEDS ORDERED: ATIVAN IV ALCOHOL WITHDRAWL IV PRN (18:03)
[2020-10-26] MEDS ORDERED: LORazepam 3 MG/6 ML VIAL IV PRN (18:03)
--- NOTE | 2020-10-26 18:51 | History & Physical Report ---
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 admit to PCU AWSS protocol Librium Taper PRN IV Ativan NSS 100 cc/hr x 2 L until re eval in a.m. daily Thiamine and folic acid IV (3) Elevated transaminase level: AST 74, ALT 83 prior liver US, hepatic steatotis monitor (4) Elevated glucose level: bsg 138 obtain a1c in a.m. (5) Hypothyroidism: continue levothyroxine (6) Supraventricular tachycardia: hx of PSVT received call from nurse on floor that patient had 3 episodes of SVT, longest 12 beats give 5 mg IV Lopressor x1 now patient did not take metoprolol for past 1 to 2 days Resume oral metoprolol (7) Dyslipidemia: hold statin (8) DVT prophylaxis: SQ Lovenox Disposition: admit to PCU, plan to discharge to [facility] for rehab, case management consulted Follow up: PCP Dr Chaves upon discharge Pt was seen and examined in collaboration Dr. Cote, please see addendum History of Present Illness Chief Complaint: Alcohol withdrawal x 1 day. 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 Patient is a 3 bottle of wine per day drinker. She has suffered from alcoholism for quite some time. She has history of withdrawal in the past resulting in tremors, diaphoresis and hallucinations, but denies seizures. Her last drink was 11 AM this morning. She had 1 bottle of wine today. She came to ED with the assistance of friends from to pursue rehab. She had rehab set up to be admitted tomorrow; however, patient exhibiting signs and symptoms of withdrawal and admission to hospital felt warranted. Currently she complains of feeling tremulous, anxious and occasionally sweaty. She denies any known sick contacts, recent fever, chills, sweats, lightheadedness, dizziness, syncope, chest pain, shortness with, cough, nausea, abdominal pain, melena, hematochezia, dysuria, increased urgency or frequency with urination. She did have one episode of vomiting yesterday secondary to drinking alcohol on empty stomach. She also had one episode of diarrhea. 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 She has history of trauma in the past and feels this has contributed to her alcoholism. 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 In ED patient was hemodynamically stable, although tachycardic. Lab work notable for glucose 138, AST 74, ALT 83, TSH 2.85, alcohol 376.7. In ED she received banana bag, 3 mg of oral Ativan and 2 mg of IV Ativan. She also received significant milligrams of Librium. Allergies Allergy/AdvReac Type Severity Reaction Status Date / Time levothyroxine Allergy Severe facial Unverified 10/26/20 12:21 swelling minocycline [From Minocin] Allergy Mild Rash Verified 10/26/20 12:21 Sulfa (Sulfonamide Allergy Unknown PT DOESN'T Verified 10/26/20 12:21 Antibiotics) REMEMBER REACTION Home Medications Medication Instructions Recorded Confirmed Type amitriptyline 50 mg PO HS 12/13/19 10/26/20 History desvenlafaxine succinate [Pristiq] 50 mg PO QAM 12/13/19 10/26/20 History omeprazole magnesium [Prilosec OTC] 20 mg PO QAM 12/13/19 10/26/20 History atorvastatin 40 mg PO QAM 04/08/20 10/26/20 History doxycycline hyclate 100 mg PO DAILY 04/08/20 10/26/20 History gabapentin 100 mg capsule 200 mg PO BID 04/10/20 10/26/20 History montelukast 10 mg tablet 10 mg PO HS tab 04/10/20 10/26/20 History tamoxifen 20 mg PO QAM 06/14/20 10/26/20 History metoprolol succinate 50 mg PO BID #60 tab 06/16/20 10/26/20 Rx levothyroxine [Tirosint] 25 mcg PO QAM 07/12/20 10/26/20 History folic acid 1 mg PO DAILY 10/26/20 10/26/20 History thiamine HCl (vitamin B1) 100 mg PO DAILY 10/26/20 10/26/20 History Past Med/Surg History Medical History (Updated 10/26/20 @ 19:04 by Rachel Mohan PA-C) Abnormal thyroid function test started on 25mcg levothyroxine Abrasion, corneal Alcohol dependence Alcohol withdrawal Asthma Breast hematoma after procedure Left breast after biopsy in 11/2019 Depression 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 EGD exam- Normal examined duodenum. Bilious gastric fluid. Mild gastritis ? bilious etiology. Bx neg for H. pylori. Prominent fold just distal to GEJ. Bx- Squamocolumnar mucosa with mild carditis and hyperplastic changes. Negative for intestinal metaplasia and dysplasia. Medium sized hiatus hernia." On 03/10/17 15:26 Rita España wrote "07/04/2009- EUS exam- No choledocholithiasis, No masses appreciated in the entire pancreas. EGD exam- Normal examined duodenum. Bilious gastric fluid. Mild gastritis ? bilious etiology. This was biopsied to r/o H Pylori. Prominent fold just distal to GEJ. This was biopsied. Medium sized hiatus hernia." History of breast biopsy 11/30/2019 - Left Breast 02/08/2020 - Right Breast History of breast lump/mass excision 02/15/2020 - Right Breast History of dilation and curettage 2003 - s/p miscarriage History of lumpectomy of left breast 02/15/2020 History of lumpectomy of right breast 03/28/2020 History of mandibular surgery 1985 History of surgery 05/07/2016 - Anal Tag Removal S/P laparoscopic cholecystectomy 02/23/2004 Family History Mother Breast cancer, Onset Age: 76 Currently battling metastatic breast cancer Grandmother (Paternal) , Passed age 93 of stomach cancer No problems noted. Grandfather (Maternal) , Passed age 72 of colon cancer No problems noted. Father , Passed age 67 of complications from menigioma No problems noted. Aunt Breast cancer, Onset Age: 34 Alive and well Aunt Breast cancer, Onset Age: 62 alive and well Aunt Breast cancer, Onset Age: 62 Alive and well Brother Stroke Dementia Sister No problems noted. Son No problems noted. Other Family history non-contributory Social History (Updated 10/26/20 @ 18:59 by Rachel Mohan PA-C) Smoking Status: Never smoker Hx Alcohol Use: Yes Alcohol type: wine Alcohol Intake Frequency: 4 or More x per/Week Alcohol Intake Frequency Comment: 3 bottles of wine daily for past 30 days Hx Substance Use: No Preferred Language: Amharic Communication Ability: Effective Visual Impairment: Limited Hearing Ability: Normal Manager Auto Required: No Beliefs That Will Affect Care: None marital status: Current Living Situation: Alone Current Living Situation Comment: adult son lives w/ her current occupational status: 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 Other Information That Helps Us Care for You: No Feels Safe at Home: Yes Safety Concerns: Feels Safe At This Time Childhood Exposure to Second-Hand Smoke: Yes (Mom ) caffeine: Yes (daily ) during the past year weight has: remained stable Dental Care, Regularly: Yes Assistive Devices: None Review of Systems Review of Systems: All systems reviewed & are unremarkable except as noted in HPI & below Physical Exam Physical Exam: Constitutional: WD/WN, F, anxious and tearful, vitals as above, NAD, sitting up in bed, pleasant, conversing easily Head: Normocephalic, Atraumatic Eyes: PERRL, conjunctivae normal, anicteric sclerae ENMT: external ear and nose normal, oropharynx normal Neck: trachea midline, no thyromegaly normal visual inspection Respiratory: normal respiratory effort, lungs clear to auscultation, no wheeze, rales, rhonchi. Normal insp/exp effort, no accessory muscle use Cardiovascular: Tachycardic rate, regular rhythm no murmur, no edema Vessels: no JVD or carotid bruit Chest: normal inspection of chest Abdomen: normal bowel sounds, soft, nontender, no hepatosplenomegaly Musculoskeletal: no cyanosis or clubbing, active range of motion x4 Skin: no rashes, warm and dry normal turgor Neurologic: Tremulous to bilateral upper extremities with movement, PERRL, EOMI, accommodation nl, no face palsy, no dysarthria CN's II-XI intact bilaterally and moves all extremities Psychiatric: A+Ox3, euthymic affect : deferred Results & Data Results & Data ([facility]) Vital Signs (Past 12 Hours) Vital Signs Pulse Resp BP Pulse Ox 10/26/20 17:30 142 H 21 10/26/20 17:25 140 H 16 10/26/20 17:24 141 H 18 152/101 H 10/26/20 17:00 141 H 24 10/26/20 16:30 143 H 21 10/26/20 16:00 130 H 22 10/26/20 15:30 143 H 24 10/26/20 15:01 124 H 21 10/26/20 15:00 125 H 24 131/83 10/26/20 14:31 126 H 22 10/26/20 14:30 124 H 20 136/78 10/26/20 14:01 122 H 19 10/26/20 14:00 122 H 15 149/96 H 10/26/20 13:31 123 H 22 10/26/20 13:30 124 H 14 170/104 H 10/26/20 13:04 130 H 18 10/26/20 12:30 108 H 18 10/26/20 12:06 97 10/26/20 12:01 110 H 13 96 10/26/20 12:00 109 H 17 124/90 96 10/26/20 11:53 114 H 14 96 10/26/20 11:49 114 H 17 140/86 97 10/26/20 11:30 132 H 20 139/86 98 Laboratory Results Short CBC 10/26/20 Range/Units 12:08 WBC 7.77 (4.8-10.8) K/uL Hgb 16.0 (12.0-16.0) g/dL Hct 45.9 (37-47) % Plt Count 276 (130-400) K/uL BMP 10/26/20 12:08 Sodium 137 Potassium 4.0 Chloride 100 Carbon Dioxide 23 BUN 9 Creatinine 0.98 Glucose 138 H Calcium 8.7 Liver Function 10/26/20 Range/Units 12:08 Total Bilirubin 0.6 (0.2-1) mg/dl Direct Bilirubin TNP AST 74 H (15-37) U/L ALT 83 H (12-78) U/L Alkaline Phosphatase 89 (45-117) U/L Albumin 4.3 (3.4-5.0) gm/dl Urine 10/26/20 Range/Units 13:05 Urine Color Yellow Urine Appearance Clear (Clear) Urine pH 5.0 (4.5-7.5) Ur Specific [place] 1.016 (1.000-1.030) Urine Protein Trace H (Negative) Urine Glucose (UA) Negative (Negative) Medications Administered Discontinued Medications Chlordiazepoxide HCl (Chlordiazepoxide Hcl 25 Mg Cap) 25 mg PO NOW ONE Stop: 10/26/20 13:53 Last Admin: 10/26/20 13:56 Dose: 25 mg Documented by: [id number] Chlordiazepoxide HCl (Chlordiazepoxide Hcl 25 Mg Cap) 50 mg PO NOW ONE Stop: 10/26/20 15:47 Last Admin: 10/26/20 15:51 Dose: 50 mg Documented by: [id number] Multivitamins 10 ml/ Thiamine HCl 100 mg/ Folic Acid 1 mg/Sodium Chloride 1,011.2 mls @ 1,011.2 mls/hr IV .Q1H ONE Stop: 10/26/20 13:01 Last Infusion: 10/26/20 14:18 Dose: 0 mls/hr Documented by: [id number] Admin: 10/26/20 13:10 Dose: 1,011.2 mls/hr Documented by: [id number] Sodium Chloride (Nss 1000ml) 1,000 mls @ 999 mls/hr IV .Q1H1M ONE Stop: 10/26/20 17:32 Last Infusion: 10/26/20 18:16 Dose: 0 mls/hr Documented by: [id number] Admin: 10/26/20 16:36 Dose: 999 mls/hr Documented by: [id number] Lorazepam (Ativan) 2 mg in 4 mls @ 4 mls/min IV NOW STA Stop: 10/26/20 17:39 Last Admin: 10/26/20 18:15 Dose: 4 mls/min Documented by: [id number] Lorazepam (Lorazepam 1 Mg Tab) 1 mg SL NOW STA Stop: 10/26/20 13:48 Last Admin: 10/26/20 14:14 Dose: 1 mg Documented by: [id number] Lorazepam (Lorazepam 1 Mg Tab) 2 mg SL NOW STA Stop: 10/26/20 15:47 Last Admin: 10/26/20 15:51 Dose: 2 mg Documented by: [id number] ECG Rate (beats per minute): 123 Rhythm: sinus tachycardia Code Status & VTE Plan Code Status Full Code VTE Prophylaxis Plan VTE Prophylaxis will be ordered: Yes Supervising Physician Co-Signing Physician Notes Pt seen and examined by me, care coordinated with Rachel Mohan PA-C, pls refer to her note above for further detail. 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 Patient is a 3 bottle of wine per day drinker. She has history of withdrawal in the past resulting in tremors, diaphoresis and hallucinations, but denies seizures. Her last drink was 11 AM this morning. She had rehab set up to be admitted tomorrow; however, patient exhibiting signs and symptoms of withdrawal and admission to hospital felt warranted. Patient is currently laying in bed, in no acute distress, pleasant, answering questions appropriately. She is quite tachycardic, and reports not feeling well. She does report that she gets this way at home as well, symptoms improve with drinking. Lung sounds are clear to auscultation bilaterally without any wheezing rhonchi or crackles. Abdomen is soft, nontender, nondistended. Patient is able to move all 4 extremities spontaneously without difficulty. In ED patient received Ativan and Librium, with some improvement of symptoms however continues to be tachycardic throughout the day. She received banana bag, will continue thiamine, as needed Ativan and Librium taper. Patient also has history of SVT, and at home takes metoprolol succinate however reports not taking this medication today. Will make sure to continue. Jaun Cote MD (1) Alcohol dependence Complication of substance-induced condition: with unspecified complication Substance use status: in withdrawal Qualified Code(s): F10.239 - Alcohol dependence with withdrawal, unspecified (2) Alcohol withdrawal Complication of substance-induced condition: with unspecified complication Qualified Code(s): F10.239 - Alcohol dependence with withdrawal, unspecified
[2020-10-26] MEDS: LORazepam 2 MG/4 ML VIAL IV PRN (19:56)
[2020-10-26] MEDS ORDERED: MAGNESIUM HYDROXIDE SUSP 30 ML UDC PO PRN (21:04)
[2020-10-26] MEDS ORDERED: ONDANSETRON INJ 2 MG/ML 2 ML VIAL IV PRN (21:04)
[2020-10-26] MEDS ORDERED: chlordiazePOXIDE ALCOHOL WITHDRAWL 50MG PO STA (21:04)
[2020-10-26] MEDS ORDERED: ALUMINUM/MAGNESIUM SUSP 30 ML UDC PO PRN (21:04)
[2020-10-26] MEDS ORDERED: POLYETHYLENE (MIRALAX) 17 GM PACK PO PRN (21:04)
[2020-10-26] MEDS ORDERED: ACETAMINOPHEN 325 MG TAB PO PRN (21:04)
[2020-10-26] MEDS ORDERED: METOPROLOL TARTRATE 1 MG/ML VIAL IV STA (21:16)
[2020-10-26] MEDS: SODIUM CHLORIDE 0.9% 1000ML 1,000 ML IV SCH (21:26)
[2020-10-26] MEDS: AMITRIPTYLINE HCL 50 MG TAB PO SCH (22:04)
[2020-10-26] MEDS: ENOXAPARIN INJ 40 MG/0.4 ML SYR SQ SCH (22:04)
[2020-10-26] MEDS: THIAMINE HCL 100 MG in SYRINGE 9 ML IV SCH (22:04)
[2020-10-26] MEDS: FOLIC ACID 1 MG in SYRINGE 9.8 ML IV SCH (22:05)
[2020-10-26] MEDS: MONTELUKAST SODIUM 10 MG TABLET PO SCH (22:05)
[2020-10-26] MEDS: GABAPENTIN 100 MG CAP PO SCH (22:06)
[2020-10-26] MEDS: METOPROLOL SUCC 50MG EXT REL TAB PO SCH (22:06)
[2020-10-26] MEDS: chlordiazePOXIDE HCl 25 MG CAP PO SCH (22:09)
[2020-10-26] MEDS ORDERED: LORazepam 0.5 MG/1 ML VIAL IV PRN (22:20)
[2020-10-26] MEDS ORDERED: METOPROLOL TARTRATE 1 MG/ML VIAL IV PRN (22:20)
[2020-10-26 23:25] LABS: Amphetamines+Metham, Urine Neg (Neg); Barbiturates, Urine Neg (Neg); Benzodiazepine, Urine Neg (Neg); Cocaine, Urine Neg (Neg); MDMA (Ecstacy), Urine Neg (Neg); Methadone, Urine Neg (Neg); Opiate, Urine Neg (Neg); Phencyclidine, Urine Neg (Neg)
[2020-10-27] MEDS: LORazepam 2 MG/4 ML VIAL IV PRN ×2 (00:54→19:45)
[2020-10-27] MEDS: chlordiazePOXIDE HCl 25 MG CAP PO SCH ×4 (03:11→22:05)
[2020-10-27] MEDS: SODIUM CHLORIDE 0.9% 1000ML 1,000 ML IV SCH ×3 (04:09→23:55)
[2020-10-27 04:26] LABS: Basophils # (auto) 0.02 K/uL (0-0.2); Basophils % (auto) 0.4 %; Eosinophils # (auto) 0.14 K/uL (0-0.5); Eosinophils % (auto) 2.9 %; Hematocrit (blood only) 36.7 % (37-47); Hemoglobin 12.5 g/dL (12.0-16.0); Immature Granulocytes # (auto) 0.01 K/uL (0.00-0.02); Immature Granulocytes % (auto) 0.2 %; Lymphocytes # (auto) 0.87 K/uL (1.2-3.4); Lymphocytes % (auto) 18.2 %; Mean Corpuscular Hemoglobin 32.4 pg (25-34); Mean Corpuscular Hgb Conc 34.1 g/dL (32-36); Mean Corpuscular Volume 95.1 fL (80-100); Mean Platelet Volume 8.6 fL (7.4-10.4); Monocytes # (auto) 0.49 K/uL (0.11-0.59); Monocytes % (auto) 10.2 %; Neutrophils # (auto) 3.26 K/uL (1.4-6.5); Neutrophils % (auto) 68.1 %; Platelet Count 186 K/uL (130-400); RDW Coefficient of Variation 14.3 % (11.5-14.5); RDW Standard Deviation 49.5 fL (36.4-46.3); Red Blood Count 3.86 M/uL (4.2-5.4); White Blood Count 4.79 K/uL (4.8-10.8)
[2020-10-27 04:40] LABS: Albumin Level 3.3 gm/dl (3.4-5.0); BUN Creatinine Ratio 13.2 (10-20); Calcium 7.5 mg/dl (8.5-10.1); Creatinine Clr Calc Pharmacy 97.8 ml/min; Est GFR (African American) 103.8; Est GFR (Non-African American) 89.6; Magnesium 1.8 mg/dl (1.8-2.4); Potassium 3.5 mmol/L (3.5-5.1)
[2020-10-27 04:45] LABS: Bilirubin,Total 0.8 mg/dl (0.2-1); Globulin 3.2 gm/dl (2.5-4.0); Total Protein 6.5 gm/dl (6.4-8.2)
[2020-10-27] MEDS: LORazepam 1 MG/2 ML VIAL IV PRN ×2 (08:10→15:15)
[2020-10-27] MEDS: THIAMINE HCL 100 MG in SYRINGE 9 ML IV SCH (09:00)
[2020-10-27] MEDS: TAMOXIFEN CITRATE 10 MG TABLET PO SCH (09:00)
[2020-10-27] MEDS: MULTI-VITAMIN INFUSION 10 ML, THIAMINE HCL 100 MG, FOLIC ACID 1 MG in SODIUM CHLORIDE 0... IV SCH (09:00)
[2020-10-27] MEDS: METOPROLOL SUCC 50MG EXT REL TAB PO SCH ×2 (09:00→19:52)
[2020-10-27] MEDS: PANTOprazole 40 MG TAB PO SCH (09:00)
[2020-10-27] MEDS: DOXYCYCLINE HYCLATE 100 MG CAP PO SCH (09:00)
[2020-10-27] MEDS: MAGNESIUM OXIDE 400 MG TAB PO SCH ×2 (10:45→19:50)
[2020-10-27] MEDS ORDERED: LORazepam 0.5 MG/1 ML VIAL IV PRN (10:45)
[2020-10-27] MEDS: POTASSIUM CHLORIDE CRTAB 20 MEQ TABCR PO SCH ×2 (10:45→19:50)
--- NOTE | 2020-10-27 18:43 | Hospitalist Progress Note ---
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 Continue: AWSS protocol Librium Taper PRN IV Ativan Banana bag, then NSS daily Thiamine and folic acid IV Awaiting acceptance to alcohol rehab (3) Elevated transaminase level: AST 74, ALT 83 prior liver US, hepatic steatosis LFTs improving (4) Elevated glucose level: bsg 138 A1c pending (5) Hypothyroidism: continue levothyroxine (6) Supraventricular tachycardia: hx of PSVT Per admitting service notes: received call from nurse on floor that patient had 3 episodes of SVT, longest 12 beats give 5 mg IV Lopressor x1 now patient did not take metoprolol for past 1 to 2 days Resume oral metoprolol 12/5 Sinus rhythm with PVCs based on the morning EKG Place potassium and magnesium Continue metoprolol (7) Dyslipidemia: hold statin (8) DVT prophylaxis: SQ Lovenox Disposition: admit to PCU, plan to discharge to [facility] for rehab, case management consulted--awaiting acceptance to alcohol rehab Follow up: PCP Dr Chaves upon discharge Admission and Anticipated Discharge Date Admission Date: October 26, 2020 Subjective Follow-up for alcohol withdrawal, etc. Seen resting in bed, sitting up at the edge of the bed, comfortable, not in distress Oriented x3, calm, cooperative States she feels improved compared to yesterday but still having some tremors, mild anxiety, no hallucinations or confusion Denies headache, dizziness, chest pain, shortness of breath, palpitations, abdominal pain, nausea vomiting Denies depression No other symptoms Review of Systems 2 Review of Systems: All systems reviewed & are unremarkable except as noted in Subjective Physical Exam Physical Exam: General- oriented x 3, not in distress, speaks in sentences with no effort or accessory muscle use Head- atraumatic Eyes- PERRL, EOMI, anicteric ENT- oropharynx clear Neck- supple, no JVD, no adenopathy, no thyromegaly; carotids +2/2, no bruits appreciated Lungs- clear to auscultation bilaterally, no rales/wheezes Heart- normal rate, regular rhythm; no murmur, no gallop, no rub appreciated Abdomen- normal bowel sounds, nondistended, soft, nontender, no masses or hepatosplenomegaly Extremities- no pretibial edema, no calf tenderness; peripheral pulses intact Positive bilateral hand tremors, mild Neuro- alert, oriented x 3; CN 2-12 grossly intact; motor 5/5 bilaterally;sensation 100% on all extremities; no other gross focal neurologic deficits Skin- warm & dry Psych-normal affect, somewhat anxious but denies depression Results & Data Results & Data ([facility]) Laboratory Results Laboratory Results - last 24 hr 10/26/20 10/26/20 10/26/20 13:03 19:28 21:00 WBC RBC Hgb Hct MCV MCH MCHC RDW Std Deviation RDW Coeff of Marybeth Plt Count MPV Immature Gran % (Auto) Neut % (Auto) Lymph % (Auto) [place] % (Auto) Eos % (Auto) Baso % (Auto) Neut # (Auto) Lymph # (Auto) [place] # (Auto) Eos # (Auto) Baso # (Auto) Immature Gran # (Auto) Sodium Potassium Chloride Carbon Dioxide Anion Gap BUN Creatinine Est Cr Clr Drug Dosing Est GFR ( Amer) Est GFR (Non-Af Amer) BUN/Creatinine Ratio Glucose Estimat Average Glucose Hemoglobin A1c Calcium Magnesium Total Bilirubin AST ALT Alkaline Phosphatase Total Protein Albumin Globulin Albumin/Globulin Ratio Nasal Screen MRSA (PCR) Negative Urine Opiates Screen Neg Ur Methadone, Qual Neg Urine Barbiturates Neg Ur Phencyclidine (PCP) Neg U Amphetamin/Meth Scrn Neg MDMA (Ecstasy) Screen Neg U Benzodiazepines Scrn Neg Ur Cocaine Metabolite Neg U Marijuana (THC) Screen Neg SARS-CoV-2 Ag (Rapid) Negative 10/27/20 10/27/20 10/27/20 04:14 04:14 04:14 WBC 4.79 L RBC 3.86 L Hgb 12.5 D Hct 36.7 L MCV 95.1 MCH 32.4 MCHC 34.1 RDW Std Deviation 49.5 H RDW Coeff of Marybeth 14.3 Plt Count 186 MPV 8.6 Immature Gran % (Auto) 0.2 Neut % (Auto) 68.1 Lymph % (Auto) 18.2 [place] % (Auto) 10.2 Eos % (Auto) 2.9 Baso % (Auto) 0.4 Neut # (Auto) 3.26 Lymph # (Auto) 0.87 L [place] # (Auto) 0.49 Eos # (Auto) 0.14 Baso # (Auto) 0.02 Immature Gran # (Auto) 0.01 Sodium 136 Potassium 3.5 Chloride 104 Carbon Dioxide 25 Anion Gap 7.0 BUN 10 Creatinine 0.76 Est Cr Clr Drug Dosing 97.8 Est GFR ( Amer) 103.8 Est GFR (Non-Af Amer) 89.6 BUN/Creatinine Ratio 13.2 Glucose 127 H Estimat Average Glucose Pending Hemoglobin A1c Pending Calcium 7.5 L Magnesium 1.8 Total Bilirubin 0.8 AST 44 H ALT 53 Alkaline Phosphatase 68 Total Protein 6.5 D Albumin 3.3 L Globulin 3.2 Albumin/Globulin Ratio 1.0 Nasal Screen MRSA (PCR) Urine Opiates Screen Ur Methadone, Qual Urine Barbiturates Ur Phencyclidine (PCP) U Amphetamin/Meth Scrn MDMA (Ecstasy) Screen U Benzodiazepines Scrn Ur Cocaine Metabolite U Marijuana (THC) Screen SARS-CoV-2 Ag (Rapid) (1) Alcohol withdrawal Complication of substance-induced condition: with unspecified complication Qualified Code(s): F10.239 - Alcohol dependence with withdrawal, unspecified (2) Alcohol dependence Complication of substance-induced condition: with unspecified complication Substance use status: in withdrawal Qualified Code(s): F10.239 - Alcohol dependence with withdrawal, unspecified
[2020-10-27] MEDS: MONTELUKAST SODIUM 10 MG TABLET PO SCH (19:51)
[2020-10-27] MEDS: AMITRIPTYLINE HCL 50 MG TAB PO SCH (19:51)
[2020-10-27] MEDS: ENOXAPARIN INJ 40 MG/0.4 ML SYR SQ SCH (21:56)
[2020-10-27] MEDS: GABAPENTIN 100 MG CAP PO SCH ×2 (22:02→22:04)
[2020-10-27] MEDS: FOLIC ACID 1 MG in SYRINGE 9.8 ML IV SCH (23:55)
[2020-10-28] MEDS: SODIUM CHLORIDE 0.9% 1000ML 1,000 ML IV SCH (05:56)
[2020-10-28 06:11] LABS: Estimated Average Glucose 137 mg/dl; Hemoglobin A1C 6.4 % (4.5-5.6)
[2020-10-28] MEDS: chlordiazePOXIDE HCl 25 MG CAP PO SCH ×3 (06:35→23:21)
[2020-10-28] MEDS: GABAPENTIN 100 MG CAP PO SCH ×2 (07:52→20:23)
[2020-10-28] MEDS: PANTOprazole 40 MG TAB PO SCH (07:52)
[2020-10-28] MEDS: POTASSIUM CHLORIDE CRTAB 20 MEQ TABCR PO SCH (07:52)
[2020-10-28] MEDS: MAGNESIUM OXIDE 400 MG TAB PO SCH ×2 (07:53→20:27)
[2020-10-28] MEDS: DOXYCYCLINE HYCLATE 100 MG CAP PO SCH (07:53)
[2020-10-28] MEDS: METOPROLOL SUCC 50MG EXT REL TAB PO SCH ×2 (07:53→20:24)
[2020-10-28] MEDS: TAMOXIFEN CITRATE 10 MG TABLET PO SCH (07:53)
[2020-10-28] MEDS: MULTI-VITAMIN INFUSION 10 ML, THIAMINE HCL 100 MG, FOLIC ACID 1 MG in SODIUM CHLORIDE 0... IV SCH (09:04)
--- NOTE | 2020-10-28 10:34 | Electrocardiogram Report ---
Test Reason : Blood Pressure : / mmHG Vent. Rate : 123 BPM Atrial Rate : 123 BPM P-R Int : 158 ms QRS Dur : 086 ms QT Int : 306 ms P-R-T Axes : 060 -01 035 degrees QTc Int : 438 ms Sinus tachycardia Otherwise normal ECG When compared with ECG of 17-JUL-2020 13:31, No significant change was found Confirmed by Jamir Parish ([id number]) on 10/28/2020 10:33:56 AM Referred By: REFERRED SELF Confirmed By:Jamir Parish
--- NOTE | 2020-10-28 10:39 | Electrocardiogram Report ---
Test Reason : Blood Pressure : / mmHG Vent. Rate : 091 BPM Atrial Rate : 091 BPM P-R Int : 190 ms QRS Dur : 088 ms QT Int : 388 ms P-R-T Axes : 072 057 073 degrees QTc Int : 477 ms Sinus rhythm with occasional Premature ventricular complexes Otherwise normal ECG When compared with ECG of 26-OCT-2020 18:06, (unconfirmed) Premature ventricular complexes are now Present Questionable change in QRS axis Confirmed by Jamir Parish ([id number]) on 10/28/2020 10:39:31 AM Referred By: REFERRED SELF Confirmed By:Jamir Parish
--- NOTE | 2020-10-28 11:42 | Electrocardiogram Report ---
Test Reason : Blood Pressure : / mmHG Vent. Rate : 081 BPM Atrial Rate : 081 BPM P-R Int : 160 ms QRS Dur : 080 ms QT Int : 384 ms P-R-T Axes : 025 009 -02 degrees QTc Int : 446 ms Normal sinus rhythm Normal ECG When compared with ECG of 27-OCT-2020 08:11, (unconfirmed) Premature ventricular complexes are no longer Present T wave inversion now evident in Inferior leads T wave amplitude has increased in Lateral leads Confirmed by Jamir Parish ([id number]) on 10/28/2020 11:41:50 AM Referred By: REFERRED SELF Confirmed By:Jamir Parish
[2020-10-28] MEDS: LORazepam 2 MG/4 ML VIAL IV PRN ×2 (13:12→17:58)
--- NOTE | 2020-10-28 19:25 | Hospitalist Progress Note ---
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 Improving clinically, no signs of DTs this morning Continue with AWSS protocol Librium Taper PRN IV Ativan Banana bag daily Thiamine and folic acid IV Awaiting acceptance to alcohol rehab (3) Elevated transaminase level: AST 74, ALT 83 prior liver US, hepatic steatosis LFTs improving (4) Elevated glucose level: bsg 138 a1c 6.4 (5) Hypothyroidism: continue levothyroxine (6) Supraventricular tachycardia: hx of PSVT Per admitting service notes: received call from nurse on floor that patient had 3 episodes of SVT, longest 12 beats give 5 mg IV Lopressor x1 now patient did not take metoprolol for past 1 to 2 days Resume oral metoprolol 12/ Sinus rhythm on telemetry Continue metoprolol (7) Dyslipidemia: hold statin (8) DVT prophylaxis: SQ Lovenox Disposition: admit to PCU, plan to discharge to [facility] [address] for rehab, case management consulted--awaiting acceptance to alcohol rehab Follow up: PCP Dr Chaves upon discharge Admission and Anticipated Discharge Date Admission Date: October 26, 2020 Subjective Follow-up for alcohol withdrawal, alcoholism, etc. Seen sitting up in bed, sitting at the edge of the bed, appears more comfortable Less anxious Oriented X3, not in distress Patient states that she feels improved today compared to yesterday Less anxiety and tremors Patient noted to have some visual hallucinations yesterday overnight, but none so far today Denies headache, dizziness, chest pain, shortness of breath, palpitations, abdo nicki pain, nausea vomiting States anxiety is better, denies depression No other symptoms Review of Systems Review of Systems: All systems reviewed & are unremarkable except as noted in Subjective Physical Exam Physical Exam: General- oriented x 3, not in distress, speaks in sentences with no effort or accessory muscle use Eyes- anicteric Neck- no JVD Lungs- clear breath sounds bilaterally, crackles, no wheezing bilaterally Heart- normal rate, regular rhythm; no murmurs Abdomen- normal bowel sounds, nondistended, soft, nontender Extremities- no pretibial edema, no calf tenderness Mild tremors on bilateral hands Neuro- alert, oriented x 3; no gross focal neurologic deficits Skin- warm & dry Results & Data Results & Data ([facility]) Vital Signs (Past 12 Hours) Vital Signs Temp Pulse Pulse Resp BP BP Pulse Ox 10/28/20 18:00 90 27 H 10/28/20 16:00 90 20 10/28/20 14:44 36.7 C 81 18 130/86 99 10/28/20 14:26 82 17 130/86 98 10/28/20 14:00 90 34 H 10/28/20 13:11 85 12 152/114 H 10/28/20 12:00 36.9 C 92 H 82 18 131/91 100 10/28/20 11:10 91 H 10/28/20 11:09 108 H 131/91 10/28/20 10:49 76 131/91 10/28/20 10:00 88 10 L 10/28/20 08:00 83 19 10/28/20 07:57 36.7 C 82 24 138/82 97 (1) Alcohol dependence Complication of substance-induced condition: with unspecified complication Substance use status: in withdrawal Qualified Code(s): F10.239 - Alcohol dependence with withdrawal, unspecified (2) Alcohol withdrawal Complication of substance-induced condition: with unspecified complication Qualified Code(s): F10.239 - Alcohol dependence with withdrawal, unspecified
[2020-10-28] MEDS: LORazepam 1 MG/2 ML VIAL IV PRN (20:22)
[2020-10-28] MEDS: AMITRIPTYLINE HCL 50 MG TAB PO SCH (20:23)
[2020-10-28] MEDS: MONTELUKAST SODIUM 10 MG TABLET PO SCH (20:24)
[2020-10-28] MEDS: ENOXAPARIN INJ 40 MG/0.4 ML SYR SQ SCH (23:21)
[2020-10-29] MEDS: LORazepam 1 MG/2 ML VIAL IV PRN (03:32)
[2020-10-29] MEDS: chlordiazePOXIDE HCl 25 MG CAP PO SCH ×2 (07:38→12:57)
[2020-10-29] MEDS: GABAPENTIN 100 MG CAP PO SCH ×2 (08:58→20:23)
[2020-10-29] MEDS: PANTOprazole 40 MG TAB PO SCH (08:58)
[2020-10-29] MEDS: MULTI-VITAMIN INFUSION 10 ML, THIAMINE HCL 100 MG, FOLIC ACID 1 MG in SODIUM CHLORIDE 0... IV SCH (08:58)
[2020-10-29] MEDS: DOXYCYCLINE HYCLATE 100 MG CAP PO SCH (08:59)
[2020-10-29] MEDS: TAMOXIFEN CITRATE 10 MG TABLET PO SCH (08:59)
[2020-10-29] MEDS: METOPROLOL SUCC 50MG EXT REL TAB PO SCH ×2 (08:59→20:23)
[2020-10-29] MEDS: MAGNESIUM OXIDE 400 MG TAB PO SCH ×2 (12:57→21:09)
[2020-10-29] MEDS: POTASSIUM CHLORIDE CRTAB 20 MEQ TABCR PO SCH (12:57)
[2020-10-29] MEDS ORDERED: LORazepam 1 MG TAB PO PRN (15:28)
--- NOTE | 2020-10-29 15:55 | Hospitalist Progress Note ---
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 continues to improve last dose of Librium taper tomorrow AM convert to PO Ativan PRN Awaiting acceptance to alcohol rehab (3) Elevated transaminase level: AST 74, ALT 83 prior liver US, hepatic steatosis LFTs improving (4) Elevated glucose level: Pre DM bsg 138 a1c 6.4 -- low carb diet exercise -- outpatient ff up (5) Hypothyroidism: continue levothyroxine (6) Supraventricular tachycardia: hx of PSVT Per admitting service notes: received call from nurse on floor that patient had 3 episodes of SVT, longest 12 beats give 5 mg IV Lopressor x1 now patient did not take metoprolol for past 1 to 2 days Resume oral metoprolol 10/29 Sinus rhythm on telemetry Continue metoprolol (7) Dyslipidemia: on statin Abnormal Imaging Studies- Breast -- follows with [facility]- Dr. Kenyon re: plan -- will need breast biopsy as outpatient Dr. Kenyon recommends Alcohol Rehab to [facility] upon discharge from [facility] Rehab to set up biopsy schedule (8) DVT prophylaxis: SQ Lovenox Disposition: admit to PCU, plan to discharge to [facility] for rehab, case management consulted--awaiting acceptance to alcohol rehab Follow up: PCP Dr Chaves upon discharge Admission and Anticipated Discharge Date Admission Date: October 26, 2020 Subjective ff up for alcohol withdrawal seen resting in bed, sitting up comfortable not in distress states she continues to feel improved less anxiety, tremors no confusion, hallucinations, headache, dizziness, chest pain, dyspnea, abdominal pain no other symptoms Review of Systems Review of Systems: All systems reviewed & are unremarkable except as noted in Subjective Physical Exam Physical Exam: General- oriented x 3, not in distress, speaks in sentences with no effort or accessory muscle use Eyes- anicteric Neck- no JVD Lungs- clear breath sounds bilaterally Heart- normal rate, regular rhythm; no murmurs Abdomen- normal bowel sounds, nondistended, soft, nontender Extremities- no pretibial edema, no calf tenderness hands: very minimal tremors Neuro- alert, oriented x 3; no gross focal neurologic deficits Skin- warm & dry Results & Data Results & Data ([facility]) Vital Signs (Past 12 Hours) Vital Signs Temp Pulse Pulse Resp BP Pulse Ox 10/29/20 11:15 36.7 C 82 20 144/95 H 99 10/29/20 08:10 36.6 C 85 22 127/93 96 10/29/20 08:00 86 (1) Alcohol withdrawal Complication of substance-induced condition: with unspecified complication Qualified Code(s): F10.239 - Alcohol dependence with withdrawal, unspecified (2) Alcohol dependence Complication of substance-induced condition: with unspecified complication Substance use status: in withdrawal Qualified Code(s): F10.239 - Alcohol depend ence with withdrawal, unspecified
[2020-10-29] MEDS: ENOXAPARIN INJ 40 MG/0.4 ML SYR SQ SCH (20:22)
[2020-10-29] MEDS: AMITRIPTYLINE HCL 50 MG TAB PO SCH (20:23)
[2020-10-29] MEDS: MONTELUKAST SODIUM 10 MG TABLET PO SCH (20:24)
[2020-10-30 07:55] LABS: BUN Creatinine Ratio 19.7 (10-20); Creatinine Clr Calc Pharmacy 96.3 ml/min; Est GFR (African American) 100.6; Est GFR (Non-African American) 86.8; Magnesium 1.9 mg/dl (1.8-2.4); Potassium 3.9 mmol/L (3.5-5.1)
[2020-10-30] MEDS: MULTI-VITAMIN INFUSION 10 ML, THIAMINE HCL 100 MG, FOLIC ACID 1 MG in SODIUM CHLORIDE 0... IV SCH (08:00)
[2020-10-30] MEDS: METOPROLOL SUCC 50MG EXT REL TAB PO SCH ×2 (08:01→20:28)
[2020-10-30] MEDS: MAGNESIUM OXIDE 400 MG TAB PO SCH ×2 (08:01→20:20)
[2020-10-30] MEDS: DOXYCYCLINE HYCLATE 100 MG CAP PO SCH (08:01)
[2020-10-30] MEDS: TAMOXIFEN CITRATE 10 MG TABLET PO SCH (08:01)
[2020-10-30] MEDS: GABAPENTIN 100 MG CAP PO SCH ×2 (08:02→20:20)
[2020-10-30] MEDS: PANTOprazole 40 MG TAB PO SCH (08:02)
[2020-10-30] MEDS: POTASSIUM CHLORIDE CRTAB 20 MEQ TABCR PO SCH (08:36)
[2020-10-30 11:27] LABS: Albumin Level 3.2 gm/dl (3.4-5.0); Bilirubin Direct 0.1 mg/dl (0-0.2); Bilirubin,Total 0.4 mg/dl (0.2-1); Total Protein 6.9 gm/dl (6.4-8.2)
[2020-10-30] MEDS ORDERED: MECLIZINE 12.5 MG TAB PO PRN (19:17)
[2020-10-30] MEDS: AMITRIPTYLINE HCL 50 MG TAB PO SCH (20:20)
--- NOTE | 2020-10-30 20:20 | CT Scan Report ---
CT head/brain wo con CLINICAL HISTORY: Dizziness. Possible stroke COMPARISON STUDY: July 12, 2020 TECHNIQUE: Axial CT of the brain is performed from the vertex to the skull base. IV contrast was not administered for this examination. A dose lowering technique was utilized adhering to the principles of ALARA. CT DOSE: 614.27 mGy.cm FINDINGS: No intra or extra-axial mass lesions are visualized. There is no CT evidence of acute cortical infarc tion. There is no evidence of midline shift. There is no acute hemorrhage. No calvarial fractures ar e visualized. There is no evidence of pathologic ventricular dilatation. There is no evidence of acute sinusitis IMPRESSION: No acute intracranial findings ACT 112: Negative or not required by law. Electronically signed by: Chico Emanuel M.D. 10/30/2020 8:18 PM
--- NOTE | 2020-10-30 20:26 | Hospitalist Progress Note ---
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 Patient placed on alcohol withdrawal protocol including Librium taper and Ativan as needed Has completed Librium taper Patient did well with above No alcohol withdrawal symptoms today Attempted to [facility] alcohol rehab facility Patient's transportation to be arranged for tomorrow 12 noon (3) Elevated transaminase level: AST 74, ALT 83 prior liver US, hepatic steatosis LFTs improving (4) Elevated glucose level: Pre DM bsg 138 a1c 6.4 -- low carb diet exercise -- outpatient ff up (5) Hypothyroidism: continue levothyroxine (6) Supraventricular tachycardia: hx of PSVT Per admitting service notes: received call from nurse on floor that patient had 3 episodes of SVT, longest 12 beats give 5 mg IV Lopressor x1 now patient did not take metoprolol for past 1 to 2 days Resume oral metoprolol Has been on sinus rhythm on telemetry Continue metoprolol (7) Dyslipidemia: on statin Abnormal Imaging Studies- Breast History of DCIS status post partial mastectomy and radiation therapy -- [facility] Dr. Kenyon -- will need breast biopsy as outpatient Dr. Kenyon recommends [facility] Rehab to contact [facility] upon discharge from [facility] to set up biopsy schedule Dizziness --Likely BPPV --CT head: No acute process No intra or extra-axial mass lesions are visualized. There is no CT evidence of acute cortical infarction. There is no evidence of midline shift. There is no acute hemorrhage. No calvarial fractures are visualized. There is no evidence of pathologic ventricular dilatation. There is no evidence of acute sinusitis IMPRESSION: No acute intracranial findings --As needed meclizine (8) DVT prophylaxis: SQ Lovenox Disposition: discharge to [facility] for rehab, transportation scheduled to [employer] [facility] patient tomorrow Follow up: PCP Dr Chaves upon discharge General surgeon Dr. Jacqui Kenyon upon discharge from alcohol rehab Admission and Anticipated Discharge Date Admission Date: October 26, 2020 Subjective Follow-up for alcohol withdrawal Seen resting in bed, comfortable, not in distress, sitting up States that she feels much better overall Anxiety level back to baseline, very minimal tremors, no hallucinations or confusion, sweats Denies headache, nausea or vomiting, chest pain, shortness of breath, palpitations Reports 3 to 4-week history of dizziness-feels like the room is spinning around her Otherwise no other similar symptoms, states that she is ready for discharge to alcohol rehab Review of Systems Review of Systems: All systems reviewed & are unremarkable except as noted in Subjective Physical Exam Physical Exam: General- oriented x 3, not in distress, speaks in sentences with no effort or accessory muscle use Eyes- anicteric Neck- no JVD Lungs- clear breath sounds bilaterally No wheezing, no crackles appreciated Heart- normal rate, regular rhythm; no murmurs Abdomen- normal bowel sounds, nondistended, soft, nontender Extremities- no pretibial edema, no calf tenderness Hands: Normal tremors on the right hand which is chronic as per patient Neuro- alert, oriented x 3; no gross focal neurologic deficits Skin- warm & dry Results & Data Results & Data ([facility]) Vital Signs (Past 12 Hours) Vital Signs Temp Pulse Pulse Resp BP BP Pulse Ox 10/30/20 18:59 36.8 C 98 H 20 136/97 98 10/30/20 16:00 89 10/30/20 15:17 36.7 C 88 18 128/93 99 10/30/20 10:57 36.7 C 81 18 156/116 H 161/124 H 98 (1) Alcohol withdrawal Complication of substance-induced condition: with unspecified complication Qualified Code(s): F10.239 - Alcohol dependence with withdrawal, unspecified (2) Alcohol dependence Complication of substance-induced condition: with unspecified complication Substance use status: in withdrawal Qualified Code(s): F10.239 - Alcohol dependence with withdrawal, unspecified
[2020-10-30] MEDS: MONTELUKAST SODIUM 10 MG TABLET PO SCH (20:33)
--- NOTE | 2020-10-30 20:48 | Discharge Summary ---
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 Patient is a 3 bottle of wine per day drinker. She has suffered from alcoholism for quite some time. She has history of withdrawal in the past resulting in tremors, diaphoresis and hallucinations, but denies seizures. Her last drink was 11 AM this morning. She had 1 bottle of wine today. She came to ED with the assistance of friends from to pursue rehab. She had rehab set up to be admitted tomorrow; however, patient exhibiting signs and symptoms of withdrawal and admission to hospital felt warranted. Currently she complains of feeling tremulous, anxious and occasionally sweaty. She denies any known sick contacts, recent fever, chills, sweats, lightheadedness, dizziness, syncope, chest pain, shortness with, cough, nausea, abdominal pain, melena, hematochezia, dysuria, increased urgency or frequency with urination. She did have one episode of vomiting yesterday secondary to drinking alcohol on empty stomach. She also had one episode of diarrhea. 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 She has history of trauma in the past and feels this has contributed to her alcoholism. 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 In ED patient was hemodynamically stable, although tachycardic. Lab work notable for glucose 138, AST 74, ALT 83, TSH 2.85, alcohol 376.7. In ED she received banana bag, 3 mg of oral Ativan and 2 mg of IV Ativan. She also received significant milligrams of Librium. Admission Exam Per Admitting Provider Constitutional: WD/WN, F, anxious and tearful, vitals as above, NAD, sitting up in bed, pleasant, conversing easily Head: Normocephalic, Atraumatic Eyes: PERRL, conjunctivae normal, anicteric sclerae ENMT: external ear and nose normal, oropharynx normal Neck: trachea midline, no thyromegaly normal visual inspection Respiratory: normal respiratory effort, lungs clear to auscultation, no wheeze, rales, rhonchi. Normal insp/exp effort, no accessory muscle use Cardiovascular: Tachycardic rate, regular rhythm no murmur, no edema Vessels: no JVD or carotid bruit Chest: normal inspection of chest Abdomen: normal bowel sounds, soft, nontender, no hepatosplenomegaly Musculoskeletal: no cyanosis or clubbing, active range of motion x4 Skin: no rashes, warm and dry normal turgor Neurologic: Tremulous to bilateral upper extremities with movement, PERRL, EOMI, accommodation nl, no face palsy, no dysarthria CN's II-XI intact bilaterally and moves all extremities Psychiatric: A+Ox3, euthymic affect : deferred Principal Diagnosis Alcohol Withdrawal Discharge Exam General- oriented x 3, not in distress, speaks in sentences with no effort or accessory muscle use Eyes- anicteric Neck- no JVD Lungs- clear breath sounds bilaterally No wheezing, no crackles appreciated Heart- normal rate, regular rhythm; no murmurs Abdomen- normal bowel sounds, nondistended, soft, nontender Extremities- no pretibial edema, no calf tenderness Hands: Normal tremors on the right hand which is chronic as per patient Neuro- alert, oriented x 3; no gross focal neurologic deficits Skin- warm & dry Discharge Data Allergies Allergy/AdvReac Type Severity Reaction Status Date / Time levothyroxine Allergy Severe facial Unverified 10/26/20 12:21 swelling minocycline [From Minocin] Allergy Mild Rash Verified 10/26/20 12:21 Sulfa (Sulfonamide Allergy Unknown PT DOESN'T Verified 10/26/20 12:21 Antibiotics) REMEMBER REACTION Consultations 10/26/20 17:38 ED Decision to Admit Stat 10/26/20 21:04 Consult Case Management - Discharge Planning Routine Ordered Studies 10/30/20 19:17 CT head/brain wo con Urgent FINDINGS: No intra or extra-axial mass lesions are visualized. There is no CT evidence of acute cortical infarction. There is no evidence of midline shift. There is no acute hemorrhage. No calvarial fractures are visualized. There is no evidence of pathologic ventricular dilatation. 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 Patient placed on alcohol withdrawal protocol including Librium taper and Ativan as needed Has completed Librium taper Patient did well with above Alcohol withdrawal symptoms resolved Transfer to [facility] alcohol rehab facility Patient's transportation to be arranged for tomorrow 12 noon (3) Elevated transaminase level: On admission, AST 74, ALT 83 prior liver US, hepatic steatosis LFTs improving Follow-up as an outpatient (4) Elevated glucose level: Pre DM bsg 138 a1c 6.4 -- low carb diet exercise -- outpatient ff up (5) Hypothyroidism: continue levothyroxine (6) Supraventricular tachycardia: hx of PSVT Per admitting service notes: received call from nurse on floor that patient had 3 episodes of SVT, longest 12 beats give 5 mg IV Lopressor x1 now patient did not take metoprolol for past 1 to 2 days Resume oral metoprolol Has been on sinus rhythm on telemetry Continue metoprolol Supplement magnesium (7) Dyslipidemia: on statin Abnormal Imaging Studies- Breast History of DCIS status post partial mastectomy and radiation therapy -- follows with [facility]- Dr. Kenyon -- will need breast biopsy as outpatient Dr. Kenyon recommends Alcohol Rehab to contact [facility] upon discharge from [facility] Rehab to set up biopsy schedule Dizziness --Likely BPPV --CT head: No acute process No intra or extra-axial mass lesions are visualized. There is no CT evidence of acute cortical infarction. There is no evidence of midline shift. There is no acute hemorrhage. No calvarial fractures are visualized. There is no evidence of pathologic ventricular dilatation. There is no evidence of acute sinusitis IMPRESSION: No acute intracranial findings --As needed meclizine (8) DVT prophylaxis: SQ Lovenox Disposition: discharge to [facility] for rehab, transportation scheduled to [employer] patient tomorrow Follow up: PCP Dr Chaves upon discharge General surgeon Dr. Jacqui Kenyon upon discharge from alcohol rehab Total Time Total Time Spent Total Time Spent (In Minutes): 50 minutes Discharge Plan Discharge Items Patient Disposition: Drug & Alcohol Rehab Reason For Visit: ALCOHOL WITHDRAWL Discharge Diagnosis: Alcohol withdrawal Activity: Resume your previous activity Non-emergency contact: Primary Care Provider Call non-emergency contact if: you have any medication questions, your symptoms worsen and you have a fever Follow-up/Referrals: Jacqui Kenyon MD [Physician] - Aditi Avila PA-C [Primary Care Provider] - Diet: Heart Healthy Diet Comment: Low carbohydrate diet Addtl Attending Provider Instructions: Please refer to accompanying hospital discharge summary for further details. Patient will need to have an appointment with her general surgeon Dr. Jacqui Kenyon from [facility] in [facility] upon discharge from alcohol rehab [place]. She needs to have a breast biopsy performed after her treatment at the alcohol rehab center Contact information for Dr. Jacqui Kenyon outlined per above. Pending Studies at Discharge: No Stand-Alone Forms: [email or web address], Smoking Cessation Skilled Items Patient informed of condition?: Yes DNR: No Discharge Level of Care: Other Communicable Disease: No Discharge Prognosis: Improving Lines: None Urinary Catheter: No Medications and DC Order Prescriptions: New meclizine 12.5 mg Tablet 12.5 mg PO Q6H PRN (Reason: dizziness or vertigo) Qty: 30 RF: 0 magnesium oxide 400 mg (241.3 mg magnesium) Tablet 400 mg PO DAILY Qty: 30 RF: 0 Continued amitriptyline 50 mg tablet 50 mg PO HS RF: 0 omeprazole magnesium [Prilosec OTC] 20 mg Tablet,Delayed Release (Dr/Ec) 20 mg PO QAM RF: 0 desvenlafaxine succinate [Pristiq] 50 mg Tablet Extended Release 24 Hr 50 mg PO QAM RF: 0 Tirosint 25 mcg capsule 25 mcg PO QAM RF: 0 gabapentin 100 mg capsule 200 mg PO BID RF: 0 atorvastatin 40 mg tablet 40 mg PO QAM RF: 0 montelukast 10 mg tablet 10 mg PO HS RF: 0 tamoxifen 20 mg tablet 20 mg PO QAM RF: 0 metoprolol succinate 50 mg Tablet Extended Release 24 Hr 50 mg PO BID Qty: 60 RF: 0 thiamine HCl (vitamin B1) 100 mg Tablet 100 mg PO DAILY RF: 0 folic acid 1 mg Tablet 1 mg PO DAILY RF: 0 Discontinued doxycycline hyclate 100 mg capsule 100 mg PO DAILY RF: 0 Krames/Other Patient Handouts: 5 Steps for Eating Healthier, A1C Admission Data Admit Date/Time: 10/26/20 18:03 Attending Provider: Franco Freeman Admit Provider: Balta Cote Primary Care Provider: Aditi Avila Other Providers: Balta Cote
[2020-10-30] MEDS: ENOXAPARIN INJ 40 MG/0.4 ML SYR SQ SCH (21:55)
[2020-10-31] MEDS: POTASSIUM CHLORIDE CRTAB 20 MEQ TABCR PO SCH (08:44)
[2020-10-31] MEDS: MAGNESIUM OXIDE 400 MG TAB PO SCH (08:45)
[2020-10-31] MEDS: GABAPENTIN 100 MG CAP PO SCH (08:46)
[2020-10-31] MEDS: TAMOXIFEN CITRATE 10 MG TABLET PO SCH (08:47)
[2020-10-31] MEDS: PANTOprazole 40 MG TAB PO SCH (08:48)
[2020-10-31] MEDS: DOXYCYCLINE HYCLATE 100 MG CAP PO SCH (08:49)
[2020-10-31] MEDS: METOPROLOL SUCC 50MG EXT REL TAB PO SCH (08:50)
[2020-10-31] MEDS: MULTI-VITAMIN INFUSION 10 ML, THIAMINE HCL 100 MG, FOLIC ACID 1 MG in SODIUM CHLORIDE 0... IV SCH ×2 (08:55→09:11)
[2020-10-31] MEDS ORDERED: TAMOXIFEN CITRATE 10 MG TABLET PO SCH (09:00)
--- NOTE | 2020-10-31 09:43 | Communication Note ---
Date of Service: October 31, 2020 no complain of SOB , chest pain or dizzy spell feels fine will be discharged to ETOH rehab today discharge Physical Exam : Gen : no sign of distress , stable vitals HEENT ; NAD HT: regular S1/S2 , no edema Lungs : clear to auscultate , no wheeze or rales abdomen : soft . 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 Patient placed on alcohol withdrawal protocol including Librium taper and Ativan as needed Alcohol withdrawal symptoms resolved Transfer to [facility] alcohol rehab facility Patient's transportation to be arranged for today Elevated transaminase level: possible alcoholic hepatitis cont ETOH rehab repeat lab with follow up visit with Family Physician after discharge from rehab Supraventricular tachycardia: Has been on sinus rhythm on telemetry Continue metoprolol Supplement magnesium Abnormal Imaging Studies- Breast History of DCIS status post partial mastectomy and radiation therapy -- follows with [facility]- Dr. Kenyon -- will need breast biopsy as outpatient Dr. Kenyon recommends Alcohol Rehab to contact [facility] upon discharge from [facility] Rehab to set up biopsy schedule pt is transferred to ETOH rehab in stable condition for detail D/C summary -see Dr Warner's Documentation on 10/30/20 total time spent in Discharge : 30 mins
[2020-10-31 11:38] VITALS: BP 133/94; PULSE 92; TEMP 98.4; O2SAT 98
== END 2020-10-31 12:29 | disposition alcohol treatment (31) | DRG 897 ==
LOC: ED 11:22 → SUATTDRO 18:03 → 1E 18:03 → 2S 10-29 19:55

== ENCOUNTER 2021-05-28 20:24 | Inpatient (IN) ==
[2021-05-28] MEDS ORDERED: LORazepam 1 MG/2 ML VIAL IV PRN (20:54)
[2021-05-28] MEDS ORDERED: LORazepam 1 MG/2 ML VIAL IV STA ×2 (20:54→22:49)
[2021-05-28] MEDS ORDERED: MULTI-VITAMIN INFUSION 10 ML, THIAMINE HCL 100 MG, FOLIC ACID 1 MG in SODIUM CHLORIDE 0... IV ONE (20:54)
[2021-05-28] MEDS ORDERED: cloNIDine HCL 0.3 MG/24 HR TRANSDERM SYS TD STA (20:54)
[2021-05-28] MEDS ORDERED: SODIUM CHLORIDE 0.9% 1000ML 1,000 ML IV SCH (21:00)
[2021-05-28 21:24] LABS: Basophils # (auto) 0.03 K/uL (0-0.2); Basophils % (auto) 1.1 %; Eosinophils # (auto) 0.03 K/uL (0-0.5); Eosinophils % (auto) 1.1 %; Hematocrit (blood only) 40.1 % (37-47); Hemoglobin 14.1 g/dL (12.0-16.0); Immature Granulocytes # (auto) 0.01 K/uL (0.00-0.02); Immature Granulocytes % (auto) 0.4 %; Lymphocytes # (auto) 0.46 K/uL (1.2-3.4); Lymphocytes % (auto) 16.5 %; Mean Corpuscular Hemoglobin 32.8 pg (25-34); Mean Corpuscular Hgb Conc 35.2 g/dL (32-36); Mean Corpuscular Volume 93.3 fL (80-100); Mean Platelet Volume 9.2 fL (7.4-10.4); Monocytes # (auto) 0.52 K/uL (0.11-0.59); Monocytes % (auto) 18.6 %; Neutrophils # (auto) 1.74 K/uL (1.4-6.5); Neutrophils % (auto) 62.3 %; Platelet Count 123 K/uL (130-400); RDW Coefficient of Variation 14.8 % (11.5-14.5); RDW Standard Deviation 49.9 fL (36.4-46.3); White Blood Count 2.79 K/uL (4.8-10.8)
[2021-05-28 21:40] LABS: Alanine Aminotransferase 163 U/L (12-78); Albumin Level 4.2 gm/dl (3.4-5.0); Aspartate Aminotransferase 231 U/L (15-37); BUN Creatinine Ratio 12.4 (10-20); Blood Urea Nitrogen 11 mg/dl (7-18); Calcium 8.8 mg/dl (8.5-10.1); Carbon Dioxide 24 mmol/L (21-32); Chloride 99 mmol/L (98-107); Est GFR (African American) 88.2 ml/min; Est GFR (Non-African American) 76.1 ml/min; Glucose 135 mg/dl (70-99); Potassium 3.5 mmol/L (3.5-5.1); Sodium 136 mmol/L (136-145)
[2021-05-28 21:49] LABS: Alkaline Phosphatase 112 U/L (45-117); Bilirubin,Total 0.6 mg/dl (0.2-1); Globulin 4.1 gm/dl (2.5-4.0); Total Protein 8.3 gm/dl (6.4-8.2)
[2021-05-28] MEDS ORDERED: GABAPENTIN 600 MG TAB PO STA (22:07)
[2021-05-28] MEDS ORDERED: POTASSIUM CHLORIDE CRTAB 20 MEQ TABCR PO STA (22:08)
[2021-05-28] MEDS ORDERED: METOPROLOL TARTRATE 1 MG/ML VIAL IV STA (22:32)
[2021-05-28] MEDS ORDERED: METOPROLOL TARTRATE 1 MG/ML VIAL IV ONE (22:42)
[2021-05-28] MEDS ORDERED: ADENOSINE IV SOLN 3 MG/ML 2 ML VIAL IV ONE (22:45)
[2021-05-28] MEDS ORDERED: ADENOSINE IV SOLN 3 MG/ML 2 ML VIAL IV STA ×2 (22:45)
[2021-05-28 22:48] LABS: Magnesium 1.8 mg/dl (1.8-2.4)
[2021-05-28 22:54] LABS: Lyme Ab IgG w/WB Rflx Negative (Negative); Lyme Ab IgM w/WB Rflx Negative (Negative)
--- NOTE | 2021-05-28 22:55 | History & Physical Report ---
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 It may contain grammatical or spelling errors. Kindly contact undersigned for clarification of any documentation item in question. History of Present Illness Chief Complaint: Shaky, alcohol withdrawal Primary Care Provider: Aidan Chaves DO Medical history significant for PSVT, hyperlipidemia, mood disorder, ongoing alcohol abuse, DCIS status post surgery/radiation/ongoing tamoxifen Rx. Last confinement October 2020 for alcohol withdrawal. Patient went back to drinking months ago owing to personal stressors. Mood not the best but denies suicidality. This morning, patient tried to cut down on alcohol intake. Shakiness noted at home. Patient denies chest pain, S OB. Patient consulted ER for detox. Patient went into SVT during ER stay. Cardiac rate 180s. SVT terminated with 1 dose of adenosine. Patient currently feeling better. 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 Allergies Allergy/AdvReac Type Severity Reaction Status Date / Time levothyroxine Allergy Severe facial Unverified 05/28/21 22:02 swelling minocycline [From Minocin] Allergy Mild Rash Verified 05/28/21 22:02 Sulfa (Sulfonamide Allergy Unknown PT DOESN'T Verified 05/28/21 22:02 Antibiotics) REMEMBER REACTION Home Medications Medication Instructions Recorded Confirmed Type amitriptyline 50 mg PO HS 12/13/19 05/28/21 History desvenlafaxine succinate [Pristiq] 50 mg PO QAM 12/13/19 05/28/21 History omeprazole magnesium [Prilosec OTC] 20 mg PO QAM 12/13/19 05/28/21 History atorvastatin 40 mg PO HS 04/08/20 05/28/21 History gabapentin 100 mg capsule 200 mg PO BID 04/10/20 05/28/21 History tamoxifen 20 mg PO QAM 06/14/20 05/28/21 History metoprolol succinate 25 mg PO BID 01/09/21 05/28/21 History propranolol 10 mg PO BID PRN 01/09/21 05/28/21 History Past Med/Surg History Medical History Abnormal thyroid function test started on 25mcg levothyroxine Abrasion, corneal Alcohol dependence Alcohol withdrawal Asthma Breast hematoma after procedure Left breast after biopsy in 11/2019 Depression 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 EGD exam- Normal examined duodenum. Bilious gastric fluid. Mild gastritis ? bilious etiology. Bx neg for H. pylori. Prominent fold just distal to GEJ. Bx- Squamocolumnar mucosa with mild carditis and hyperplastic changes. Negative for intestinal metaplasia and dysplasia. Medium sized hiatus hernia." On 03/10/17 15:26 Rita España wrote "07/04/2009- EUS exam- No choledocholithiasis, No masses appreciated in the entire pancreas. EGD exam- Normal examined duodenum. Bilious gastric fluid. Mild gastritis ? bilious etiology. This was biopsied to r/o H Pylori. Prominent fold just distal to GEJ. This was biopsied. Medium sized hiatus he rnia." History of breast biopsy 11/30/2019 - Left Breast 02/08/2020 - Right Breast History of breast lump/mass excision 02/15/2020 - Right Breast History of dilation and curettage 2003 - s/p miscarriage History of lumpectomy of left breast 02/15/2020 History of lumpectomy of right breast 03/28/2020 History of mandibular surgery 1986 History of surgery 05/07/2016 - Anal Tag Removal S/P laparoscopic cholecystectomy 02/23/2004 Family History Mother Breast cancer, Onset Age: 76 Currently battling metastatic breast cancer Grandmother (Paternal) , Passed age 93 of stomach cancer No problems noted. Grandfather (Maternal) , Passed age 72 of colon cancer No problems noted. Father , Passed age 67 of complications from menigioma No problems noted. Aunt Breast cancer, Onset Age: 34 Alive and well Aunt Breast cancer, Onset Age: 62 alive and well Aunt Breast cancer, Onset Age: 62 Alive and well Brother Stroke Dementia Sister No problems noted. Son No problems noted. Other Family history non-contributory Social History Smoking Status: Never smoker Hx Alcohol Use: Yes Alcohol type: beer and wine Alcohol Intake Frequency: 4 or More x per/Week Alcohol Intake Frequency Comment: 3 bottles of wine daily for past 30 days Hx Substance Use: No Preferred Language: Russian Communication Ability: Effective Visual Impairment: Limited Hearing Ability: Normal Planer Operator / Grader Required: No Beliefs That Will Affect Care: None marital status: Current Living Situation: Alone Current Living Situation Comment: adult son lives w/ her current occupational status: 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 Other Information That Helps Us Care for You: No Feels Safe at Home: Yes Safety Concerns: Feels Safe At This Time Childhood Exposure to Second-Hand Smoke: Yes (Mom ) caffeine: Yes (daily ) during the past year weight has: remained stable Dental Care, Regularly: Yes Assistive Devices: Glasses Review of Systems Review of Systems: As per HPI, all 10 systems reviewed, all other ROS negative Physical Exam Physical Exam: GENERAL: uncomfortable, tremulous, obese, no respiratory distress SKIN: Normal color, warm HEENT: Pitkin palpebral conjunctivae, no ptosis, dry buccal mucosa NECK : Supple, short neck, no tenderness CHEST : CTA, no tenderness HEART : Tachycardic, no obvious murmurs ABDOMEN: Some distention, nontender EXTREMITIES : No LE swelling/tenderness, no other conspicuous deformities noted NEUROLOGIC : Coherent, no facial asymmetry, tremulous, no other gross focality Results & Data Results & Data ([facility]) Vital Signs (Past 12 Hours) Vital Signs Temp Pulse Resp BP Pulse Ox 05/28/21 22:51 114 H 173/136 H 05/28/21 22:24 111 H 15 176/114 H 87 L 05/28/21 21:57 117 H 19 189/101 H 05/28/21 21:20 117 H 98 05/28/21 21:15 118 H 19 176/103 H 95 05/28/21 20:28 36.7 C 129 H 20 152/106 H 98 Laboratory Results Laboratory Results WBC 2.79 K/uL (4.8-10.8) L 05/28/21 21:11 RBC 4.30 M/uL (4.2-5.4) 05/28/21 21:11 Hgb 14.1 g/dL (12.0-16.0) 05/28/21 21:11 Hct 40.1 % (37-47) 05/28/21 21:11 MCV 93.3 fL (80-100) 05/28/21 21:11 MCH 32.8 pg (25-34) 05/28/21 21:11 MCHC 35.2 g/dL (32-36) 05/28/21 21:11 RDW Std Deviation 49.9 fL (36.4-46.3) H 05/28/21 21:11 RDW Coeff of Marybeth 14.8 % (11.5-14.5) H 05/28/21 21:11 Plt Count 123 K/uL (130-400) L 05/28/21 21:11 MPV 9.2 fL (7.4-10.4) 05/28/21 21:11 Immature Gran % (Auto) 0.4 % 05/28/21 21:11 Neut % (Auto) 62.3 % 05/28/21 21:11 Lymph % (Auto) 16.5 % 05/28/21 21:11 [place] % (Auto) 18.6 % 05/28/21 21:11 Eos % (Auto) 1.1 % 05/28/21 21:11 Baso % (Auto) 1.1 % 05/28/21 21:11 Neut # (Auto) 1.74 K/uL (1.4-6.5) 05/28/21 21:11 Lymph # (Auto) 0.46 K/uL (1.2-3.4) L 05/28/21 21:11 [place] # (Auto) 0.52 K/uL (0.11-0.59) 05/28/21 21:11 Eos # (Auto) 0.03 K/uL (0-0.5) 05/28/21 21:11 Baso # (Auto) 0.03 K/uL (0-0.2) 05/28/21 21:11 Immature Gran # (Auto) 0.01 K/uL (0.00-0.02) 05/28/21 21:11 Sodium 136 mmol/L (136-145) 05/28/21 21:11 Potassium 3.5 mmol/L (3.5-5.1) 05/28/21 21:11 Chloride 99 mmol/L (98-107) 05/28/21 21:11 Carbon Dioxide 24 mmol/L (21-32) 05/28/21 21:11 Anion Gap 13.0 (3-11) H 05/28/21 21:11 BUN 11 mg/dl (7-18) 05/28/21 21:11 Creatinine 0.87 mg/dl (0.6-1.2) 05/28/21 21:11 Est Cr Clr Drug Dosing Not Reportable 05/28/21 21:11 Est GFR ( Amer) 88.2 ml/min 05/28/21 21:11 Est GFR (Non-Af Amer) 76.1 ml/min 05/28/21 21:11 BUN/Creatinine Ratio 12.4 (10-20) 05/28/21 21:11 Glucose 135 mg/dl (70-99) H 05/28/21 21:11 Calcium 8.8 mg/dl (8.5-10.1) 05/28/21 21:11 Magnesium 1.8 mg/dl (1.8-2.4) 05/28/21 21:11 Total Bilirubin 0.6 mg/dl (0.2-1) 07/06/21 21:11 AST 231 U/L (15-37) H 05/28/21 21:11 ALT 163 U/L (12-78) H 05/28/21 21:11 Alkaline Phosphatase 112 U/L (45-117) 05/28/21 21:11 Total Protein 8.3 gm/dl (6.4-8.2) H 05/28/21 21:11 Albumin 4.2 gm/dl (3.4-5.0) 05/28/21 21:11 Globulin 4.1 gm/dl (2.5-4.0) H 05/28/21 21:11 Albumin/Globulin Ratio 1.0 (0.9-2) 05/28/21 21:11 TSH 4.190 uIu/ml (0.300-4.500) 05/28/21 21:11 Ethyl Alcohol mg/dL 102.0 mg/dl (0-3) H 05/28/21 21:21 Anaplasma Smear See Comment 05/28/21 21:11 Lyme Disease IgG Ab Negative (Negative) 05/28/21 21:10 Lyme Disease IgM Ab Negative (Negative) 05/28/21 21:10 COVID-19 Eval Order Covid19 at [facility] 05/28/21 21:23 SARS-CoV-2 (PCR) NEGATIVE (Negative) 05/28/21 21:23 Diagnostic Findings Chest x-ray as per my interpretation atelectasis EKG as per my interpretation : Rate 105, sinus tachycardia, normal axis, no ischemia
[2021-05-28] MEDS ORDERED: MAGNESIUM SULFATE / D5W 1 GM/100 ML BAG IV ONE (23:01)
[2021-05-28] MEDS ORDERED: METOPROLOL SUCC 25MG EXT REL TAB PO STA (23:48)
[2021-05-29] MEDS ORDERED: LORazepam 3 MG/6 ML VIAL IV PRN (00:13)
[2021-05-29] MEDS ORDERED: PROMETHAZINE HCL 12.5 MG in SODIUM CHLORIDE 0.9% 50 ML IV PRN (00:13)
[2021-05-29] MEDS ORDERED: LORazepam 1 MG/2 ML VIAL IV PRN (00:13)
[2021-05-29] MEDS ORDERED: ACETAMINOPHEN 325 MG TAB PO PRN (00:13)
[2021-05-29] MEDS ORDERED: oxyCODONE HCL IR 5 MG TAB (IMMEDIATE RELEASE) PO PRN (00:13)
[2021-05-29] MEDS ORDERED: ATIVAN IV ALCOHOL WITHDRAWL IV PRN (00:13)
[2021-05-29] MEDS ORDERED: POTASSIUM CHLORIDE 40 MEQ in SODIUM CHLORIDE 0.9% 1000ML 1,000 ML IV ONE (00:32)
[2021-05-29] MEDS: LORazepam 2 MG/4 ML VIAL IV PRN ×5 (00:44→18:31)
[2021-05-29] MEDS: CHECK CLONIDINE PATCH PLACEMENT SCH ×4 (00:49→23:52)
[2021-05-29] MEDS: FOLIC ACID 1 MG TAB PO SCH ×2 (01:17→08:20)
[2021-05-29] MEDS: THIAMINE HCL 100 MG TAB PO SCH ×2 (01:17→08:21)
[2021-05-29] MEDS ORDERED: METOPROLOL TARTRATE 1 MG/ML VIAL IV STA (02:31)
[2021-05-29 06:38] LABS: Basophils # (auto) 0.01 K/uL (0-0.2); Basophils % (auto) 0.3 %; Eosinophils % (auto) 3.4 %; Hematocrit (blood only) 39.3 % (37-47); Hemoglobin 13.4 g/dL (12.0-16.0); Immature Granulocytes # (auto) 0.01 K/uL (0.00-0.02); Immature Granulocytes % (auto) 0.3 %; Lymphocytes % (auto) 24.1 %; Mean Corpuscular Hemoglobin 32.8 pg (25-34); Mean Corpuscular Hgb Conc 34.1 g/dL (32-36); Mean Corpuscular Volume 96.1 fL (80-100); Mean Platelet Volume 9.2 fL (7.4-10.4); Monocytes # (auto) 0.38 K/uL (0.11-0.59); Monocytes % (auto) 13.1 %; Neutrophils # (auto) 1.71 K/uL (1.4-6.5); Neutrophils % (auto) 58.8 %; Platelet Count 120 K/uL (130-400); RDW Coefficient of Variation 15.1 % (11.5-14.5); RDW Standard Deviation 52.7 fL (36.4-46.3); Red Blood Count 4.09 M/uL (4.2-5.4); White Blood Count 2.91 K/uL (4.8-10.8)
[2021-05-29] MEDS: METOPROLOL SUCC 50MG EXT REL TAB PO SCH ×2 (06:42→21:19)
[2021-05-29 06:50] LABS: Appearance Urine Clear (Clear); Bacteria Urine Automated Negative (Negative); Bilirubin Urine Negative (Negative); Blood Urine Negative (Negative); Color Urine Yellow; Epithelial Cell Urine Auto 20-30 /lpf (0-5); Glucose Urine UA Negative (Negative); Ketones Urine Trace (Negative); Leukocyte Esterase Urine Trace (Negative); Nitrite Urine Negative (Negative); Protein Urine Negative (Negative); RBC Urine Automated 0-4 /hpf (0-4); Specific Gravity Urine 1.011 (1.000-1.030); Urobilinogen Urine Negative (Negative)
[2021-05-29 06:55] LABS: Prothrombin Time 10.2 Seconds (9.0-12.0)
--- NOTE | 2021-05-29 06:58 | XRay Report ---
XR chest 1V portable CLINICAL HISTORY: weakness COMPARISON STUDY: July 17, 2020 FINDINGS: No pneumothorax. No pleural effusion. Reticular nodular opacities are seen in bilateral lower lungs with mild patchy airspace component on the left which might represent atelectasis or infiltrates. Cardiomediastinal silhouette is within normal limits in size. No significant pulmonary vascular congestion.. Osseous structures: Mild degenerative changes of the spine. IMPRESSION: 1. Atelectasis or infiltrates at bilateral lower lungs most prominent on the left. ACT 112: Negative or not required by law. The above report was generated using voice recognition software. It may contain grammatical, syntax o r spelling errors. Electronically signed by: Jennifer Goins DO 05/29/2021 6:57 AM
[2021-05-29 07:10] LABS: Amphetamines+Metham, Urine Neg (Neg); Barbiturates, Urine Neg (Neg); Benzodiazepine, Urine Neg (Neg); Cocaine, Urine Neg (Neg); MDMA (Ecstacy), Urine Neg (Neg); Methadone, Urine Neg (Neg); Opiate, Urine Neg (Neg); Phencyclidine, Urine Neg (Neg)
[2021-05-29 07:20] LABS: Albumin Level 3.6 gm/dl (3.4-5.0); BUN Creatinine Ratio 10.6 (10-20); Calcium 7.9 mg/dl (8.5-10.1); Creatinine Clr Calc Pharmacy 102.3 ml/min; Potassium 4.1 mmol/L (3.5-5.1)
[2021-05-29 07:24] LABS: Albumin Globulin Ratio 1.1 (0.9-2); Bilirubin,Total 0.9 mg/dl (0.2-1); Globulin 3.4 gm/dl (2.5-4.0)
[2021-05-29] MEDS: GABAPENTIN 100 MG CAP PO SCH ×2 (08:20→21:19)
[2021-05-29] MEDS: PANTOprazole 40 MG TAB PO SCH (08:20)
[2021-05-29] MEDS: MULTIVITAMIN TAB PO SCH (08:21)
[2021-05-29] MEDS: TAMOXIFEN CITRATE 10 MG TABLET PO SCH (08:21)
[2021-05-29] MEDS ORDERED: METOPROLOL SUCC 50MG EXT REL TAB PO SCH (09:00)
[2021-05-29] MEDS ORDERED: METOPROLOL SUCC 25MG EXT REL TAB PO SCH (09:00)
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
--- NOTE | 2021-05-29 15:32 | Hospitalist Progress Note ---
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 to monitor Dispo: Social service RE discharge planning DVT prophylaxis SCDs Re: Thrombocytopenia Full code Admission and Anticipated Discharge Date Admission Date: May 28, 2021 Subjective Pt seen in follow up of alcohol withdrawal, SVT Currently she is sitting up in the bed, in no acute distress, says that she feels better She is still somewhat tremulous, but improved No chest pain, shortness of breath, palpitations Review of Systems Review of Systems: All systems reviewed & are unremarkable except as noted in HPI & below Constitutional: no fever and no chills Respiratory: no cough and no dyspnea Cardiovascular: no chest pain and no palpitations Gastrointestinal: no abdominal pain, no nausea and no vomiting Physical Exam Physical Exam: GENERAL: mildly tremulous female, obese, no respiratory distress HEENT: NC/AT, pink palpebral conjunctivae NECK : Supple, no tenderness CHEST : CTA b/l, no wheezing, rhonchi, crackles HEART : RRR, HR in 90s, no obvious murmurs ABDOMEN: + bowel sounds, mild distention, nontender EXTREMITIES : No LE swelling/tenderness, moves extremities NEUROLOGIC : alert and oriented x3, answering questions appropriately, no facial asymmetry, mildly tremulous, moves extremities SKIN: Normal color, warm Results & Data Results & Data ([facility]) Vital Signs (Past 12 Hours) Vital Signs Temp Pulse Pulse Resp BP BP Pulse Ox 05/29/21 15:09 95 H 05/29/21 13:38 37.3 C 88 20 145/96 H 95 05/29/21 11:49 36.8 C 82 18 120/78 97 05/29/21 08:00 107 H 05/29/21 07:44 36.8 C 92 H 20 158/118 H 97 05/29/21 03:34 94 H 144/99 H 05/29/21 03:31 37.0 C 94 H 18 144/99 H 95 Laboratory Results 05/29/21 05/29/21 05/29/21 Range/Units 06:37 06:37 06:01 WBC (4.8-10.8) K/uL RBC (4.2-5.4) M/uL Hgb (12.0-16.0) g/dL Hct (37-47) % MCV (80-100) fL MCH (25-34) pg MCHC (32-36) g/dL RDW Std Deviation (36.4-46.3) fL RDW Coeff of Marybeth (11.5-14.5) % Plt Count (130-400) K/uL MPV (7.4-10.4) fL Immature Gran % (Auto) % Neut % (Auto) % Lymph % (Auto) % Nance % (Auto) % Eos % (Auto) % Baso % (Auto) % Neut # (Auto) (1.4-6.5) K/uL Lymph # (Auto) (1.2-3.4) K/uL Nance # (Auto) (0.11-0.59) K/uL Eos # (Auto) (0-0.5) K/uL Baso # (Auto) (0-0.2) K/uL Immature Gran # (Auto) (0.00-0.02) K/uL PT INR Sodium 136 (136-145) mmol/L Potassium 4.1 D (3.5-5.1) mmol/L Chloride 106 (98-107) mmol/L Carbon Dioxide 24 (21-32) mmol/L Anion Gap 6.0 (3-11) BUN 8 (7-18) mg/dl Creatinine 0.73 (0.6-1.2) mg/dl Est Cr Clr Drug Dosing 102.3 Est GFR ( Amer) 109.0 ml/min Est GFR (Non-Af Amer) 94.0 ml/min BUN/Creatinine Ratio 10.6 (10-20) Glucose 132 H (70-99) mg/dl Calcium 7.9 L (8.5-10.1) mg/dl Magnesium (1.8-2.4) mg/dl Total Bilirubin 0.9 (0.2-1) mg/dl AST 188 H (15-37) U/L ALT 135 H (12-78) U/L Alkaline Phosphatase 98 (45-117) U/L Total Protein 7.0 (6.4-8.2) gm/dl Albumin 3.6 (3.4-5.0) gm/dl Globulin 3.4 (2.5-4.0) gm/dl Albumin/Globulin Ratio 1.1 (0.9-2) TSH (0.300-4.500) uIu/ml Urine Color Yellow Urine Appearance Clear (Clear) Urine pH 7.0 (4.5-7.5) Ur Specific [place] 1.011 (1.000-1.030) Urine Protein Negative (Negative) Urine Glucose (UA) Negative (Negative) Urine Ketones Trace H (Negative) Urine Blood Negative (Negative) Urine Nitrite Negative (Negative) Urine Bilirubin Negative (Negative) Urine Urobilinogen Negative (Negative) Ur Leukocyte Esterase Trace H (Negative) Urine WBC (Auto) 1-5 (0-5) /hpf Urine RBC (Auto) 0-4 (0-4) /hpf U Hyaline Cast (Auto) 1-5 (0-5) /lpf U Epithel Cells (Auto) 20-30 H (0-5) /lpf Urine Bacteria (Auto) Negative (Negative) Urine Opiates Screen Neg (Neg) Ur Methadone, Qual Neg (Neg) Urine Barbiturates Neg (Neg) Ur Phencyclidine (PCP) Neg (Neg) U Amphetamin/Meth Scrn Neg (Neg) MDMA (Ecstasy) Screen Neg (Neg) U Benzodiazepines Scrn Neg (Neg) Ur Cocaine Metabolite Neg (Neg) U Marijuana (THC) Screen Neg (Neg) Ethyl Alcohol mg/dL (0-3) mg/dl Anaplasma Smear A. phagocytophilum DNA Lyme Disease IgG Ab (Negative) Lyme Disease IgM Ab (Negative) COVID-19 Eval Order SARS-CoV-2 (PCR) (Negative) 05/29/21 05/29/21 05/28/21 Range/Units 06:01 06:01 21:23 WBC 2.91 L (4.8-10.8) K/uL RBC 4.09 L (4.2-5.4) M/uL Hgb 13.4 (12.0-16.0) g/dL Hct 39.3 (37-47) % MCV 96.1 (80-100) fL MCH 32.8 (25-34) pg MCHC 34.1 (32-36) g/dL RDW Std Deviation 52.7 H (36.4-46.3) fL RDW Coeff of Marybeth 15.1 H (11.5-14.5) % Plt Count 120 L (130-400) K/uL MPV 9.2 (7.4-10.4) fL Immature Gran % (Auto) 0.3 % Neut % (Auto) 58.8 % Lymph % (Auto) 24.1 % Nance % (Auto) 13.1 % Eos % (Auto) 3.4 % Baso % (Auto) 0.3 % Neut # (Auto) 1.71 (1.4-6.5) K/uL Lymph # (Auto) 0.70 L (1.2-3.4) K/uL Nance # (Auto) 0.38 (0.11-0.59) K/uL Eos # (Auto) 0.10 (0-0.5) K/uL Baso # (Auto) 0.01 (0-0.2) K/uL Immature Gran # (Auto) 0.01 (0.00-0.02) K/uL PT 10.2 INR 1.0 Sodium (136-145) mmol/L Potassium (3.5-5.1) mmol/L Chloride (98-107) mmol/L Carbon Dioxide (21-32) mmol/L Anion Gap (3-11) BUN (7-18) mg/dl Creatinine (0.6-1.2) mg/dl Est Cr Clr Drug Dosing Est GFR ( Amer) ml/min Est GFR (Non-Af Amer) ml/min BUN/Creatinine Ratio (10-20) Glucose (70-99) mg/dl Calcium (8.5-10.1) mg/dl Magnesium (1.8-2.4) mg/dl Total Bilirubin (0.2-1) mg/dl AST (15-37) U/L ALT (12-78) U/L Alkaline Phosphatase (45-117) U/L Total Protein (6.4-8.2) gm/dl Albumin (3.4-5.0) gm/dl Globulin (2.5-4.0) gm/dl Albumin/Globulin Ratio (0.9-2) TSH (0.300-4.500) uIu/ml Urine Color Urine Appearance (Clear) Urine pH (4.5-7.5) Ur Specific [place] (1.000-1.030) Urine Protein (Negative) Urine Glucose (UA) (Negative) Urine Ketones (Negative) Urine Blood (Negative) Urine Nitrite (Negative) Urine Bilirubin (Negative) Urine Urobilinogen (Negative) Ur Leukocyte Esterase (Negative) Urine WBC (Auto) (0-5) /hpf Urine RBC (Auto) (0-4) /hpf U Hyaline Cast (Auto) (0-5) /lpf U Epithel Cells (Auto) (0-5) /lpf Urine Bacteria (Auto) (Negative) Urine Opiates Screen (Neg) Ur Methadone, Qual (Neg) Urine Barbiturates (Neg) Ur Phencyclidine (PCP) (Neg) U Amphetamin/Meth Scrn (Neg) MDMA (Ecstasy) Screen (Neg) U Benzodiazepines Scrn (Neg) Ur Cocaine Metabolite (Neg) U Marijuana (THC) Screen (Neg) Ethyl Alcohol mg/dL (0-3) mg/dl Anaplasma Smear A. phagocytophilum DNA Lyme Disease IgG Ab (Negative) Lyme Disease IgM Ab (Negative) COVID-19 Eval Order SARS-CoV-2 (PCR) NEGATIVE (Negative) 05/28/21 05/28/21 05/28/21 Range/Units 21:23 21:21 21:11 WBC (4.8-10.8) K/uL RBC (4.2-5.4) M/uL Hgb (12.0-16.0) g/dL Hct (37-47) % MCV (80-100) fL MCH (25-34) pg MCHC (32-36) g/dL RDW Std Deviation (36.4-46.3) fL RDW Coeff of Marybeth (11.5-14.5) % Plt Count (130-400) K/uL MPV (7.4-10.4) fL Immature Gran % (Auto) % Neut % (Auto) % Lymph % (Auto) % Nance % (Auto) % Eos % (Auto) % Baso % (Auto) % Neut # (Auto) (1.4-6.5) K/uL Lymph # (Auto) (1.2-3.4) K/uL Nance # (Auto) (0.11-0.59) K/uL Eos # (Auto) (0-0.5) K/uL Baso # (Auto) (0-0.2) K/uL Immature Gran # (Auto) (0.00-0.02) K/uL PT Cancelled INR Cancelled Sodium (136-145) mmol/L Potassium (3.5-5.1) mmol/L Chloride (98-107) mmol/L Carbon Dioxide (21-32) mmol/L Anion Gap (3-11) BUN (7-18) mg/dl Creatinine (0.6-1.2) mg/dl Est Cr Clr Drug Dosing Est GFR ( Amer) ml/min Est GFR (Non-Af Amer) ml/min BUN/Creatinine Ratio (10-20) Glucose (70-99) mg/dl Calcium (8.5-10.1) mg/dl Magnesium (1.8-2.4) mg/dl Total Bilirubin (0.2-1) mg/dl AST (15-37) U/L ALT (12-78) U/L Alkaline Phosphatase (45-117) U/L Total Protein (6.4-8.2) gm/dl Albumin (3.4-5.0) gm/dl Globulin (2.5-4.0) gm/dl Albumin/Globulin Ratio (0.9-2) TSH (0.300-4.500) uIu/ml Urine Color Urine Appearance (Clear) Urine pH (4.5-7.5) Ur Specific [place] (1.000-1.030) Urine Protein (Negative) Urine Glucose (UA) (Negative) Urine Ketones (Negative) Urine Blood (Negative) Urine Nitrite (Negative) Urine Bilirubin (Negative) Urine Urobilinogen (Negative) Ur Leukocyte Esterase (Negative) Urine WBC (Auto) (0-5) /hpf Urine RBC (Auto) (0-4) /hpf U Hyaline Cast (Auto) (0-5) /lpf U Epithel Cells (Auto) (0-5) /lpf Urine Bacteria (Auto) (Negative) Urine Opiates Screen (Neg) Ur Methadone, Qual (Neg) Urine Barbiturates (Neg) Ur Phencyclidine (PCP) (Neg) U Amphetamin/Meth Scrn (Neg) MDMA (Ecstasy) Screen (Neg) U Benzodiazepines Scrn (Neg) Ur Cocaine Metabolite (Neg) U Marijuana (THC) Screen (Neg) Ethyl Alcohol mg/dL 102.0 H (0-3) mg/dl Anaplasma Smear A. phagocytophilum DNA Lyme Disease IgG Ab (Negative) Lyme Disease IgM Ab (Negative) COVID-19 Eval Order Covid19 at [facility] SARS-CoV-2 (PCR) (Negative) 05/28/21 05/28/21 05/28/21 Range/Units 21:11 21:11 21:11 WBC 2.79 L (4.8-10.8) K/uL RBC 4.30 (4.2-5.4) M/uL Hgb 14.1 (12.0-16.0) g/dL Hct 40.1 (37-47) % MCV 93.3 (80-100) fL MCH 32.8 (25-34) pg MCHC 35.2 (32-36) g/dL RDW Std Deviation 49.9 H (36.4-46.3) fL RDW Coeff of Marybeth 14.8 H (11.5-14.5) % Plt Count 123 L (130-400) K/uL MPV 9.2 (7.4-10.4) fL Immature Gran % (Auto) 0.4 % Neut % (Auto) 62.3 % Lymph % (Auto) 16.5 % Nance % (Auto) 18.6 % Eos % (Auto) 1.1 % Baso % (Auto) 1.1 % Neut # (Auto) 1.74 (1.4-6.5) K/uL Lymph # (Auto) 0.46 L (1.2-3.4) K/uL Nance # (Auto) 0.52 (0.11-0.59) K/uL Eos # (Auto) 0.03 (0-0.5) K/uL Baso # (Auto) 0.03 (0-0.2) K/uL Immature Gran # (Auto) 0.01 (0.00-0.02) K/uL PT INR Sodium 136 (136-145) mmol/L Potassium 3.5 (3.5-5.1) mmol/L Chloride 99 (98-107) mmol/L Carbon Dioxide 24 (21-32) mmol/L Anion Gap 13.0 H (3-11) BUN 11 (7-18) mg/dl Creatinine 0.87 (0.6-1.2) mg/dl Est Cr Clr Drug Dosing Not Reportable Est GFR ( Amer) 88.2 ml/min Est GFR (Non-Af Amer) 76.1 ml/min BUN/Creatinine Ratio 12.4 (10-20) Glucose 135 H (70-99) mg/dl Calcium 8.8 (8.5-10.1) mg/dl Magnesium 1.8 (1.8-2.4) mg/dl Total Bilirubin 0.6 (0.2-1) mg/dl AST 231 H (15-37) U/L ALT 163 H (12-78) U/L Alkaline Phosphatase 112 (45-117) U/L Total Protein 8.3 H (6.4-8.2) gm/dl Albumin 4.2 (3.4-5.0) gm/dl Globulin 4.1 H (2.5-4.0) gm/dl Albumin/Globulin Ratio 1.0 (0.9-2) TSH 4.190 (0.300-4.500) uIu/ml Urine Color Urine Appearance (Clear) Urine pH (4.5-7.5) Ur Specific [place] (1.000-1.030) Urine Protein (Negative) Urine Glucose (UA) (Negative) Urine Ketones (Negative) Urine Blood (Negative) Urine Nitrite (Negative) Urine Bilirubin (Negative) Urine Urobilinogen (Negative) Ur Leukocyte Esterase (Negative) Urine WBC (Auto) (0-5) /hpf Urine RBC (Auto) (0-4) /hpf U Hyaline Cast (Auto) (0-5) /lpf U Epithel Cells (Auto) (0-5) /lpf Urine Bacteria (Auto) (Negative) Urine Opiates Screen (Neg) Ur Methadone, Qual (Neg) Urine Barbiturates (Neg) Ur Phencyclidine (PCP) (Neg) U Amphetamin/Meth Scrn (Neg) MDMA (Ecstasy) Screen (Neg) U Benzodiazepines Scrn (Neg) Ur Cocaine Metabolite (Neg) U Marijuana (THC) Screen (Neg) Ethyl Alcohol mg/dL (0-3) mg/dl Anaplasma Smear See Comment A. phagocytophilum DNA Pending Lyme Disease IgG Ab (Negative) Lyme Disease IgM Ab (Negative) COVID-19 Eval Order SARS-CoV-2 (PCR) (Negative) 05/28/21 Range/Units 21:10 WBC (4.8-10.8) K/uL RBC (4.2-5.4) M/uL Hgb (12.0-16.0) g/dL Hct (37-47) % MCV (80-100) fL MCH (25-34) pg MCHC (32-36) g/dL RDW Std Deviation (36.4-46.3) fL RDW Coeff of Marybeth (11.5-14.5) % Plt Count (130-400) K/uL MPV (7.4-10.4) fL Immature Gran % (Auto) % Neut % (Auto) % Lymph % (Auto) % Nance % (Auto) % Eos % (Auto) % Baso % (Auto) % Neut # (Auto) (1.4-6.5) K/uL Lymph # (Auto) (1.2-3.4) K/uL [place] # (Auto) (0.11-0.59) K/uL Eos # (Auto) (0-0.5) K/uL Baso # (Auto) (0-0.2) K/uL Immature Gran # (Auto) (0.00-0.02) K/uL PT INR Sodium (136-145) mmol/L Potassium (3.5-5.1) mmol/L Chloride (98-107) mmol/L Carbon Dioxide (21-32) mmol/L Anion Gap (3-11) BUN (7-18) mg/dl Creatinine (0.6-1.2) mg/dl Est Cr Clr Drug Dosing Est GFR ( Amer) ml/min Est GFR (Non-Af Amer) ml/min BUN/Creatinine Ratio (10-20) Glucose (70-99) mg/dl Calcium (8.5-10.1) mg/dl Magnesium (1.8-2.4) mg/dl Total Bilirubin (0.2-1) mg/dl AST (15-37) U/L ALT (12-78) U/L Alkaline Phosphatase (45-117) U/L Total Protein (6.4-8.2) gm/dl Albumin (3.4-5.0) gm/dl Globulin (2.5-4.0) gm/dl Albumin/Globulin Ratio (0.9-2) TSH (0.300-4.500) uIu/ml Urine Color Urine Appearance (Clear) Urine pH (4.5-7.5) Ur Specific [place] (1.000-1.030) Urine Protein (Negative) Urine Glucose (UA) (Negative) Urine Ketones (Negative) Urine Blood (Negative) Urine Nitrite (Negative) Urine Bilirubin (Negative) Urine Urobilinogen (Negative) Ur Leukocyte Esterase (Negative) Urine WBC (Auto) (0-5) /hpf Urine RBC (Auto) (0-4) /hpf U Hyaline Cast (Auto) (0-5) /lpf U Epithel Cells (Auto) (0-5) /lpf Urine Bacteria (Auto) (Negative) Urine Opiates Screen (Neg) Ur Methadone, Qual (Neg) Urine Barbiturates (Neg) Ur Phencyclidine (PCP) (Neg) U Amphetamin/Meth Scrn (Neg) MDMA (Ecstasy) Screen (Neg) U Benzodiazepines Scrn (Neg) Ur Cocaine Metabolite (Neg) U Marijuana (THC) Screen (Neg) Ethyl Alcohol mg/dL (0-3) mg/dl Anaplasma Smear A. phagocytophilum DNA Lyme Disease IgG Ab Negative (Negative) Lyme Disease IgM Ab Negative (Negative) COVID-19 Eval Order SARS-CoV-2 (PCR) (Negative) Medications Administered Current Inpatient Medications Acetaminophen (Acetaminophen 325 Mg Tab) 325 mg PO Q6H PRN PRN Reason: Mild Pain Stop: 06/28/21 00:12 Amitriptyline HCl (Amitriptyline Hcl 50 Mg Tab) 50 mg PO HS CASSANDRA Stop: 06/28/21 20:59 Atorvastatin Calcium (Atorvastatin 40 Mg Tab) 40 mg PO HS CASSANDRA Stop: 06/28/21 20:59 Folic Acid (Folic Acid 1 Mg Tab) 1 mg PO QAM CASSANDRA Stop: 06/28/21 00:12 Last Admin: 05/29/21 08:20 Dose: 1 mg Documented by: Gabapentin (Gabapentin 100 Mg Cap) 200 mg PO BID CASSANDRA Stop: 06/28/21 08:59 Last Admin: 05/29/21 08:20 Dose: 200 mg Documented by: Lorazepam (Ativan) 1 mg in 2 mls @ 2 mls/min IV UD PRN; Protocol PRN Reason: EtOH Withdrawl AWSS Score 6,7 Stop: 06/28/21 00:12 Lorazepam (Ativan) 2 mg in 4 mls @ 4 mls/min IV UD PRN; Protocol PRN Reason: EtOH Withdrawl AWSS Score 8,9 Stop: 06/28/21 00:12 Last Admin: 05/29/21 13:41 Dose: 4 mls/min Documented by: Lorazepam (Ativan) 3 mg in 6 mls @ 4 mls/min IV ONCE PRN; Protocol PRN Reason: EtOH Withdrawl AWSS Score >=10 Stop: 06/28/21 00:12 Promethazine HCl 12.5 mg/ (Sodium Chloride) 50.5 mls @ 202 mls/hr IV Q6H PRN PRN Reason: Nausea And Vomiting Stop: 06/28/21 00:12 Potassium Chloride 40 meq/ (Sodium Chloride) 1,020 mls @ 50 mls/hr IV .[id number] ONE Stop: 05/29/21 20:55 Last Admin: 05/29/21 01:16 Dose: 50 mls/hr Documented by: Metoprolol Succinate (Metoprolol Succ 50mg Ext Rel Tab) 50 mg PO BID [facility] Stop: 06/28/21 06:24 Last Admin: 05/29/21 06:42 Dose: 50 mg Documented by: Miscellaneous (Remove Clonidine Patch) 1 ea N/A CQWK [facility] Stop: 06/05/21 23:59 Last Admin: 05/29/21 00:39 Dose: Not Given Documented by: Miscellaneous (Check Clonidine Patch Placement) 1 ea N/A QS [facility] Stop: 06/05/21 18:00 Last Admin: 05/29/21 08:22 Dose: 1 ea Documented by: Miscellaneous (Pristiq - Order Awaiting Action) 1 ea N/A QS [facility] Stop: 06/28/21 07:59 Last Admin: 05/29/21 08:21 Dose: Not Given Documented by: Multivitamins (Multivitamin Tab) 1 tab PO QAM [facility] Stop: 06/28/21 08:59 Last Admin: 05/29/21 08:21 Dose: 1 tab Documented by: Oxycodone HCl (Oxycodone Hcl Ir 5 Mg Tab (Immediate Release)) 5 mg PO Q4H PRN PRN Reason: Pain Stop: 06/12/21 00:12 Pantoprazole Sodium (Pantoprazole 40 Mg Tab) 40 mg PO [facility] Stop: 06/28/21 08:59 Last Admin: 05/29/21 08:20 Dose: 40 mg Documented by: Tamoxifen Citrate (Tamoxifen Citrate 10 Mg Tablet) 20 mg PO [facility] Stop: 06/28/21 08:59 Last Admin: 05/29/21 08:21 Dose: 20 mg Documented by: Thiamine HCl (Thiamine Hcl 100 Mg Tab) 100 mg PO [facility] Stop: 06/28/21 00:12 Last Admin: 05/29/21 08:21 Dose: 100 mg Documented by:
[2021-05-29] MEDS: ATORVASTATIN 40 MG TAB PO SCH (21:19)
[2021-05-29] MEDS: AMITRIPTYLINE HCL 50 MG TAB PO SCH (21:20)
[2021-05-30] MEDS: LORazepam 2 MG/4 ML VIAL IV PRN ×6 (00:57→21:27)
--- NOTE | 2021-05-30 03:58 | Emergency Department Note ---
Impression & Plan Alcohol withdrawal, Supraventricular tachycardia ED Provider Note NAME: KAUSHAL ROBLEDO AGE: 55 SEX: F : 1965 ARRIVES VIA: Walk-In INFORMANT: Patient, ED PROVIDER(S): Ruben Carroll MD CHIEF COMPLAINT: Alcohol withdrawal HPI: This 55-year-old female who presents emergency department over concerns that she is in acute alcohol withdrawal. The patient reports she last had alcohol this morning. She reports drinking wine today. She reports that she has never had a seizure from going into withdrawal however has been hospitalized previously. She is concerned about her shakiness. She has not taken anything for the withdrawal. She reports nothing makes the withdrawal better or worse. ROS: See above HPI for pertinent positives & negatives. A total of 10 systems reviewed and were otherwise negative. PAST MEDICAL HISTORY: See Below PAST SURGICAL HISTORY: See Below FAMILY HISTORY: See Below SOCIAL HISTORY: See Below HOME MEDICATIONS: See Below ALLERGIES: See Below VITALS: See Below PHYSICAL EXAMINATION: VITAL SIGNS - Vital signs and nursing notes were reviewed. GENERAL - 55-year-old female appearing stated age who is in moderate distress. Communicates well with provider and answers questions appropriately. SKIN - Without rashes. HEAD - NC/AT. EYES - PERRL with EOMI bilaterally. Sclera anicteric. Palpebral conjunctiva pink and moist with no injection noted. EARS - No deformities of external structures noted on gross examination bilaterally. NOSE - Midline and without cyanosis. No epistaxis or purulent drainage noted. Septum midline without deviation or septal hematoma noted. MOUTH/OROPHARYNX - Without perioral cyanosis. Buccal mucosa pink and moist and without leukoplakia. Tongue midline with equal elevation of palate bilaterally. No tonsillar hypertrophy, erythema, or exudates noted. NECK - Neck with FROM. Supple to palpation. No nuchal rigidity. LUNGS - Chest wall symmetric without accessory muscle use, intercostals retractions, or central cyanosis. Normal vesicular breath sounds CTA B/L. No wheezes, rales, or rhonchi appreciated. CARDIAC - RRR with S1/S2. No murmur, rubs, or gallops appreciated. ABDOMEN - Abdominal contour without pulsations or visible masses. BS normoactive all four quadrants. No tenderness, palpable masses, hepatosplenomegaly, or ascites noted. EXTREMITIES - No clubbing or peripheral cyanosis. No pretibial edema present. +3/5 radial, posterior tibial, and dorsalis pedis pulses palpated throughout. +5/5 strength noted in UE/LE bilaterally. NEUROLOGIC - Cranial nerves II through XII grossly intact. Sensory intact to light touch throughout. Patellar reflexes +2/4. PSYCH - A&Ox3 and cooperates fully with examiner. Pt is very pleasant and interacts well with examiner. MEDICAL DECISION MAKING: Patient was seen and evaluated as above in room A9. Review was performed of nursing notes and vital signs. I did review pertinent previous visits and patient history. After obtaining a thorough history and physical examination the above work up was performed. This is a 55-year-old female who presents to the emergency department in acute alcohol withdrawal. The patient was given a clonidine patch as well as IV Ativan. In addition the patient was given an IV banana bag. The patient was found to have an elevated alcohol level. While the patient was in the emergency department she went into a supraventricular tachycardia. This was broken with 6 of adenosine. Repeat examination revealed improvement the patient's symptoms. I did discuss the case with the hospitalist service who did agree to admit the patient. Patient is in agreement with the treatment plan. While in the department, I personally reevaluated the patient several times and each time the patient was found to be resting comfortably. The patient was educated upon management, educated upon todays findings/results, educated upon importance of follow up from today's visit, educated upon symptoms in which to return, had questions answered prior to discharge, verbalized understanding, and was discharged home in good condition. An order was placed for continuous cardiac monitoring. The monitor shows a rate of 79 with Normal Sinus rhythm. The patient was evaluated during a period of high volume and high acuity during the global COVID-19 pandemic, and that diagnosis was suspected/considered upon their initial presentation. Their evaluation, treatment and testing was consistent with current guidelines for patients who present with complaints or symptoms that may be related to COVID-19. Patient was seen while provider was wearing PPE. Triage Nursing notes reviewed. Prior medical records reviewed Vital Signs: reviewed and remarkable for no significant abnormalities Differential diagnosis: Alcohol intoxication, toxicologic, infection, hypoglycemia, electrolyte abnormalities, cardiac sources, intracerebral event, neurologic, trauma, as well as other pathologies. ER treatment provided: See below Diagnostics interpreted by me: ECG: EKG shows sinus tachycardia no ST elevation or depression QTC is 467 ventricular rate is 105. EKG is compared to 10/28/2020 no significant changes found. EKG shows a supraventricular tachycardia old septal infarct EKG is compared to 05/28/2021 ventricular rate has increased by 84 QTC is 422 ventricular rate is 189 EKG shows a sinus tachycardia QTC is 446 ventricular rate is 114. EKG is compared to 05/28/2021 ventricular rate has decreased by 75. Laboratory studies: As stated above and show below. Imaging studies: See below Consultation(s): Internal Medicine Critical Care: I have personally spent greater than 30 minutes of critical care time in the direct management of this patient. This includes bedside care, interpretation of diagnostic studies, and testing, discussion with consultants, patient, and family members, and other required patient management activities. This 30 minutes is in excess of all separately billable procedures. 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 EGD exam- Normal examined duodenum. Bilious gastric fluid. Mild gastritis ? bilious etiology. Bx neg for H. pylori. Prominent fold just distal to GEJ. Bx- Squamocolumnar mucosa with mild carditis and hyperplastic changes. Negative for intestinal metaplasia and dysplasia. Medium sized hiatus hernia." On 03/10/17 15:26 Rita España wrote "07/04/2009- EUS exam- No choledocholithiasis, No masses appreciated in the entire pancreas. EGD exam- Normal examined duodenum. Bilious gastric fluid. Mild gastritis ? bilious etiology. This was biopsied to r/o H Pylori. Prominent fold just distal to GEJ. This was biopsied. Medium sized hiatus hernia." History of breast biopsy 11/30/2019 - Left Breast 02/08/2020 - Right Breast History of breast lump/mass excision 02/15/2020 - Right Breast History of dilation and curettage 2003 - s/p miscarriage History of lumpectomy of left breast 02/15/2020 History of lumpectomy of right breast 03/28/2020 History of mandibular surgery 1985 History of surgery 05/07/2016 - Anal Tag Removal S/P laparoscopic cholecystectomy 02/23/2004 Family History Mother Breast cancer, Onset Age: 76 Currently battling metastatic breast cancer Grandmother (Paternal) , Passed age 93 of stomach cancer No problems noted. Grandfather (Maternal) , Passed age 72 of colon cancer No problems noted. Father , Passed age 67 of complications from menigioma No problems noted. Aunt Breast cancer, Onset Age: 34 Alive and well Aunt Breast cancer, Onset Age: 62 alive and well Aunt Breast cancer, Onset Age: 62 Alive and well Brother Stroke Dementia Sister No problems noted. Son No problems noted. 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 Other Information That Helps Us Care for You: No Feels Safe at Home: Yes Safety Concerns: Feels Safe At This Time Childhood Exposure to Second-Hand Smoke: Yes (Mom ) caffeine: Yes (daily ) during the past year weight has: remained stable Dental Care, Regularly: Yes Assistive Devices: Glasses Allergies Allergies Allergy/AdvReac Type Severity Reaction Status Date / Time levothyroxine Allergy Severe facial Unverified 05/28/21 22:02 swelling minocycline [From Minocin] Allergy Mild Rash Verified 05/28/21 22:02 Sulfa (Sulfonamide Allergy Unknown PT DOESN'T Verified 05/28/21 22:02 Antibiotics) REMEMBER REACTION Home Meds Home Medications Medication Instructions Recorded Confirmed amitriptyline 50 mg PO HS 12/13/19 05/28/21 desvenlafaxine succinate [Pristiq] 50 mg PO QAM 12/13/19 05/28/21 omeprazole magnesium [Prilosec OTC] 20 mg PO QAM 12/13/19 05/28/21 atorvastatin 40 mg PO HS 04/08/20 05/28/21 gabapentin 100 mg capsule 200 mg PO BID 04/10/20 05/28/21 tamoxifen 20 mg PO QAM 06/14/20 05/28/21 metoprolol succinate 25 mg PO BID 01/09/21 05/28/21 propranolol 10 mg PO BID PRN 01/09/21 05/28/21 Results & Data (ED) Home Medications Current Medication List: was personally reviewed by me Laboratory Data Attestation: I reviewed the patient's lab results. Result diagrams: 05/29/21 06:01 05/29/21 06:01 Lab Results 05/28/21 05/28/21 05/28/21 Range/Units 21:10 21:11 21:11 WBC 2.79 L (4.8-10.8) K/uL RBC 4.30 (4.2-5.4) M/uL Hgb 14.1 (12.0-16.0) g/dL Hct 40.1 (37-47) % MCV 93.3 (80-100) fL MCH 32.8 (25-34) pg MCHC 35.2 (32-36) g/dL RDW Std Deviation 49.9 H (36.4-46.3) fL RDW Coeff of Marybeth 14.8 H (11.5-14.5) % Plt Count 123 L (130-400) K/uL MPV 9.2 (7.4-10.4) fL Immature Gran % (Auto) 0.4 % Neut % (Auto) 62.3 % Lymph % (Auto) 16.5 % [place] % (Auto) 18.6 % Eos % (Auto) 1.1 % Baso % (Auto) 1.1 % Neut # (Auto) 1.74 (1.4-6.5) K/uL Lymph # (Auto) 0.46 L (1.2-3.4) K/uL [place] # (Auto) 0.52 (0.11-0.59) K/uL Eos # (Auto) 0.03 (0-0.5) K/uL Baso # (Auto) 0.03 (0-0.2) K/uL Immature Gran # (Auto) 0.01 (0.00-0.02) K/uL PT INR Sodium 136 (136-145) mmol/L Potassium 3.5 (3.5-5.1) mmol/L Chloride 99 (98-107) mmol/L Carbon Dioxide 24 (21-32) mmol/L Anion Gap 13.0 H (3-11) BUN 11 (7-18) mg/dl Creatinine 0.87 (0.6-1.2) mg/dl Est Cr Clr Drug Dosing Not Reportable Est GFR ( Amer) 88.2 ml/min Est GFR (Non-Af Amer) 76.1 ml/min BUN/Creatinine Ratio 12.4 (10-20) Glucose 135 H (70-99) mg/dl Calcium 8.8 (8.5-10.1) mg/dl Magnesium 1.8 (1.8-2.4) mg/dl Total Bilirubin 0.6 (0.2-1) mg/dl AST 231 H (15-37) U/L ALT 163 H (12-78) U/L Alkaline Phosphatase 112 (45-117) U/L Total Protein 8.3 H (6.4-8.2) gm/dl Albumin 4.2 (3.4-5.0) gm/dl Globulin 4.1 H (2.5-4.0) gm/dl Albumin/Globulin Ratio 1.0 (0.9-2) TSH 4.190 (0.300-4.500) uIu/ml Ethyl Alcohol mg/dL (0-3) mg/dl Anaplasma Smear See Comment Lyme Disease IgG Ab Negative (Negative) Lyme Disease IgM Ab Negative (Negative) COVID-19 Eval Order SARS-CoV-2 (PCR) (Negative) 05/28/21 05/28/21 05/28/21 Range/Units 21:11 21:21 21:23 WBC (4.8-10.8) K/uL RBC (4.2-5.4) M/uL Hgb (12.0-16.0) g/dL Hct (37-47) % MCV (80-100) fL MCH (25-34) pg MCHC (32-36) g/dL RDW Std Deviation (36.4-46.3) fL RDW Coeff of Marybeth (11.5-14.5) % Plt Count (130-400) K/uL MPV (7.4-10.4) fL Immature Gran % (Auto) % Neut % (Auto) % Lymph % (Auto) % [place] % (Auto) % Eos % (Auto) % Baso % (Auto) % Neut # (Auto) (1.4-6.5) K/uL Lymph # (Auto) (1.2-3.4) K/uL [place] # (Auto) (0.11-0.59) K/uL Eos # (Auto) (0-0.5) K/uL Baso # (Auto) (0-0.2) K/uL Immature Gran # (Auto) (0.00-0.02) K/uL PT Cancelled INR Cancelled Sodium (136-145) mmol/L Potassium (3.5-5.1) mmol/L Chloride (98-107) mmol/L Carbon Dioxide (21-32) mmol/L Anion Gap (3-11) BUN (7-18) mg/dl Creatinine (0.6-1.2) mg/dl Est Cr Clr Drug Dosing Est GFR ( Amer) ml/min Est GFR (Non-Af Amer) ml/min BUN/Creatinine Ratio (10-20) Glucose (70-99) mg/dl Calcium (8.5-10.1) mg/dl Magnesium (1.8-2.4) mg/dl Total Bilirubin (0.2-1) mg/dl AST (15-37) U/L ALT (12-78) U/L Alkaline Phosphatase (45-117) U/L Total Protein (6.4-8.2) gm/dl Albumin (3.4-5.0) gm/dl Globulin (2.5-4.0) gm/dl Albumin/Globulin Ratio (0.9-2) TSH (0.300-4.500) uIu/ml Ethyl Alcohol mg/dL 102.0 H (0-3) mg/dl Anaplasma Smear Lyme Disease IgG Ab (Negative) Lyme Disease IgM Ab (Negative) COVID-19 Eval Order Covid19 at [facility] SARS-CoV-2 (PCR) (Negative) 05/28/21 Range/Units 21:23 WBC (4.8-10.8) K/uL RBC (4.2-5.4) M/uL Hgb (12.0-16.0) g/dL Hct (37-47) % MCV (80-100) fL MCH (25-34) pg MCHC (32-36) g/dL RDW Std Deviation (36.4-46.3) fL RDW Coeff of Marybeth (11.5-14.5) % Plt Count (130-400) K/uL MPV (7.4-10.4) fL Immature Gran % (Auto) % Neut % (Auto) % Lymph % (Auto) % [place] % (Auto) % Eos % (Auto) % Baso % (Auto) % Neut # (Auto) (1.4-6.5) K/uL Lymph # (Auto) (1.2-3.4) K/uL [place] # (Auto) (0.11-0.59) K/uL Eos # (Auto) (0-0.5) K/uL Baso # (Auto) (0-0.2) K/uL Immature Gran # (Auto) (0.00-0.02) K/uL PT INR Sodium (136-145) mmol/L Potassium (3.5-5.1) mmol/L Chloride (98-107) mmol/L Carbon Dioxide (21-32) mmol/L Anion Gap (3-11) BUN (7-18) mg/dl Creatinine (0.6-1.2) mg/dl Est Cr Clr Drug Dosing Est GFR ( Amer) ml/min Est GFR (Non-Af Amer) ml/min BUN/Creatinine Ratio (10-20) Glucose (70-99) mg/dl Calcium (8.5-10.1) mg/dl Magnesium (1.8-2.4) mg/dl Total Bilirubin (0.2-1) mg/dl AST (15-37) U/L ALT (12-78) U/L Alkaline Phosphatase (45-117) U/L Total Protein (6.4-8.2) gm/dl Albumin (3.4-5.0) gm/dl Globulin (2.5-4.0) gm/dl Albumin/Globulin Ratio (0.9-2) TSH (0.300-4.500) uIu/ml Ethyl Alcohol mg/dL (0-3) mg/dl Anaplasma Smear Lyme Disease IgG Ab (Negative) Lyme Disease IgM Ab (Negative) COVID-19 Eval Order SARS-CoV-2 (PCR) NEGATIVE (Negative) Administered Medications Amitriptyline HCl (Amitriptyline Hcl 50 Mg Tab) 50 mg PO HS CASSANDRA Stop: 06/28/21 20:59 Last Admin: 05/29/21 21:20 Dose: 50 mg Documented by: [id number] Atorvastatin Calcium (Atorvastatin 40 Mg Tab) 40 mg PO HS CASSANDRA Stop: 06/28/21 20:59 Last Admin: 05/29/21 21:19 Dose: 40 mg Documented by: [id number] Folic Acid (Folic Acid 1 Mg Tab) 1 mg PO QA CASSANDRA Stop: 06/28/21 00:12 Last Admin: 05/29/21 08:20 Dose: 1 mg Documented by: [id number] Admin: 05/29/21 01:17 Dose: 1 mg Documented by: [id number] Gabapentin (Gabapentin 100 Mg Cap) 200 mg PO BID CASSANDRA Stop: 06/28/21 08:59 Last Admin: 05/29/21 21:19 Dose: 200 mg Documented by: [id number] Admin: 05/29/21 08:20 Dose: 200 mg Documented by: [id number] Lorazepam (Ativan) 2 mg in 4 mls @ 4 mls/min IV UD PRN; Protocol PRN Reason: EtOH Withdrawl AWSS Score 8,9 Stop: 06/28/21 00:12 Last Admin: 05/30/21 00:57 Dose: 4 mls/min Documented by: [id number] Admin: 05/29/21 18:31 Dose: 4 mls/min Documented by: [id number] Admin: 05/29/21 13:41 Dose: 4 mls/min Documented by: [id number] Admin: 05/29/21 10:23 Dose: 4 mls/min Documented by: [id number] Admin: 05/29/21 08:16 Dose: 4 mls/min Documented by: [id number] Admin: 05/29/21 00:44 Dose: 4 mls/min Documented by: [id number] Metoprolol Succinate (Metoprolol Succ 50mg Ext Rel Tab) 50 mg PO BID [facility] Stop: 06/28/21 06:24 Last Admin: 05/29/21 21:19 Dose: 50 mg Documented by: [id number] Admin: 05/29/21 06:42 Dose: 50 mg Documented by: [id number] Miscellaneous (Remove Clonidine Patch) 1 ea N/A CQWK [facility] Stop: 06/05/21 23:59 Last Admin: 05/29/21 00:39 Dose: Not Given Documented by: [id number] Angelacellaneous (Check Clonidine Patch Placement) 1 ea N/A QS [facility] Stop: 06/05/21 18:00 Last Admin: 05/29/21 23:52 Dose: 1 ea Documented by: [id number] Admin: 05/29/21 16:34 Dose: 1 ea Documented by: [id number] Admin: 05/29/21 08:22 Dose: 1 ea Documented by: [id number] Admin: 05/29/21 00:49 Dose: 1 ea Documented by: [id number] Miscellaneous (Pristiq - Order Awaiting Action) 1 ea N/A QS [facility] Stop: 06/28/21 07:59 Last Admin: 05/29/21 23:52 Dose: Not Given Documented by: [id number] Admin: 05/29/21 16:34 Dose: Not Given Documented by: [id number] Admin: 05/29/21 08:21 Dose: Not Given Documented by: [id number] Multivitamins (Multivitamin Tab) 1 tab PO QAM [facility] Stop: 06/28/21 08:59 Last Admin: 05/29/21 08:21 Dose: 1 tab Documented by: [id number] Pantoprazole Sodium (Pantoprazole 40 Mg Tab) 40 mg PO QAM [facility] Stop: 06/28/21 08:59 Last Admin: 05/29/21 08:20 Dose: 40 mg Documented by: [id number] Tamoxifen Citrate (Tamoxifen Citrate 10 Mg Tablet) 20 mg PO QAM [facility] Stop: 06/28/21 08:59 Last Admin: 05/29/21 08:21 Dose: 20 mg Documented by: [id number] Cosigned by: [id number] Thiamine HCl (Thiamine Hcl 100 Mg Tab) 100 mg PO QAM [facility] Stop: 06/28/21 00:12 Last Admin: 05/29/21 08:21 Dose: 100 mg Documented by: [id number] Admin: 05/29/21 01:17 Dose: 100 mg Documented by: [id number] Discontinued Medications Adenosine (Adenosine Iv Soln 3 Mg/Ml 2 Ml Vial) 6 mg IV NOW STA Stop: 05/28/21 22:46 Last Admin: 05/28/21 22:47 Dose: 6 mg Documented by: [id number] Adenosine (Adenosine Iv Soln 3 Mg/Ml 2 Ml Vial) 12 mg IV NOW STA Stop: 05/28/21 22:46 Last Admin: 05/28/21 23:24 Dose: Not Given Documented by: [id number] Adenosine (Adenosine Iv Soln 3 Mg/Ml 2 Ml Vial) Confirm Administered Dose 6 mg IV .STK-MED ONE Stop: 05/28/21 22:46 Last Admin: 05/28/21 22:47 Dose: Not Given Documented by: [id number] Clonidine HCl (Clonidine Hcl 0.3 Mg/24 Hr Transderm Sys) 1 patch TD NOW STA Stop: 05/28/21 20:55 Last Admin: 05/28/21 21:24 Dose: 1 patch Documented by: [id number] Gabapentin (Gabapentin 600 Mg Tab) 1,200 mg PO NOW STA Stop: 05/28/21 22:08 Last Admin: 05/28/21 23:14 Dose: 1,200 mg Documented by: [id number] Sodium Chloride (Nss 1000ml) 1,000 mls @ 999 mls/hr IV .Q1H1M [facility]ANDRA Stop: 05/28/21 22:00 Last Infusion: 05/28/21 22:28 Dose: 0 mls/hr Documented by: [id number] Admin: 05/28/21 21:11 Dose: 999 mls/hr Documented by: [id number] Multivitamins 10 ml/ Thiamine HCl 100 mg/ Folic Acid 1 mg/Sodium Chloride 1,011.2 mls @ 1,011.2 mls/hr IV .Q1H ONE Stop: 05/28/21 21:53 Last Infusion: 05/29/21 00:19 Dose: 0 mls/hr Documented by: [id number] Admin: 05/28/21 22:27 Dose: 1,011.2 mls/hr Documented by: [id number] Lorazepam (Ativan) 1 mg in 2 mls @ 0.5 mls/min IV UD PRN PRN Reason: Agitation Stop: 06/27/21 20:53 Last Admin: 05/28/21 21:13 Dose: 0.5 mls/min Documented by: [id number] Lorazepam (Ativan) 1 mg in 2 mls @ 2 mls/min IV NOW STA Stop: 05/28/21 20:55 Last Admin: 05/28/21 21:12 Dose: 2 mls/min Documented by: [id number] Lorazepam (Ativan) 1 mg in 2 mls @ 2 mls/min IV NOW STA Stop: 05/28/21 22:50 Last Admin: 05/28/21 23:13 Dose: 1 mls/min Documented by: [id number] Magnesium Sulfate/Dextrose (Magnesium Sulfate / D5w) 1 gm in 100 mls @ 50 mls/hr IV ONE ONE Stop: 05/29/21 01:00 Last Infusion: 05/29/21 01:20 Dose: 0 mls/hr Documented by: [id number] Admin: 05/28/21 23:13 Dose: 50 mls/hr Documented by: [id number] Potassium Chloride 40 meq/ (Sodium Chloride) 1,020 mls @ 50 mls/hr IV .[id number] ONE Stop: 05/29/21 20:55 Last Infusion: 05/29/21 22:18 Dose: 0 mls/hr Documented by: [id number] Admin: 05/29/21 01:16 Dose: 50 mls/hr Documented by: [id number] Metoprolol Succinate (Metoprolol Succ 25mg Ext Rel Tab) 25 mg PO NOW STA Stop: 05/28/21 23:49 Last Admin: 05/29/21 00:43 Dose: 25 mg Documented by: [id number] Metoprolol Tartrate (Metoprolol Tartrate 1 Mg/Ml Vial) 5 mg IV NOW STA Stop: 05/28/21 22:33 Last Admin: 05/28/21 22:52 Dose: Not Given Documented by: [id number] Metoprolol Tartrate (Metoprolol Tartrate 1 Mg/Ml Vial) Confirm Administered Dose 5 mg IV .STK-MED ONE Stop: 05/28/21 22:43 Last Admin: 05/28/21 22:51 Dose: 5 mg Documented by: [id number] Metoprolol Tartrate (Metoprolol Tartrate 1 Mg/Ml Vial) 5 mg IV NOW STA Stop: 05/29/21 02:32 Last Admin: 05/29/21 03:34 Dose: 5 mg Documented by: [id number] Potassium Chloride (Potassium Chloride Crtab 20 Meq Tabcr) 40 meq PO NOW STA Stop: 05/28/21 22:09 Last Admin: 05/28/21 23:14 Dose: 40 meq Documented by: [id number] Discharge Plan Visit Data Chief Complaint: Alcohol Withdrawal Stated Complaint: ALCOHOL WITHDRAWL, SHAKING ED Provider: Ruben Carroll Discharge Problem: Alcohol withdrawal, Supraventricular tachycardia Patient Disposition: Admitted As Inpatient Discharge Instructions Interventions: ED Discharge Assessment Last Done: 05/29/21 00:40 Discharge Problem: Alcohol withdrawal Qualifiers: Complication of substance-induced condition: with unspecified complication Qualified Code(s): F10.239 - Alcohol dependence with withdrawal, unspecified
--- NOTE | 2021-05-30 06:19 | Electrocardiogram Report ---
Test Reason : Blood Pressure : / mmHG Vent. Rate : 105 BPM Atrial Rate : 105 BPM P-R Int : 166 ms QRS Dur : 088 ms QT Int : 354 ms P-R-T Axes : 051 021 033 degrees QTc Int : 467 ms Sinus tachycardia Otherwise normal ECG When compared with ECG of 28-OCT-2020 07:42, No significant change Confirmed by Duran Sauceda ([id number]) on 05/30/2021 6:19:20 AM Referred By: REFERRED SELF Confirmed By:Duran Sauceda
--- NOTE | 2021-05-30 06:21 | Electrocardiogram Report ---
Test Reason : Blood Pressure : / mmHG Vent. Rate : 189 BPM Atrial Rate : 187 BPM P-R Int : 000 ms QRS Dur : 074 ms QT Int : 238 ms P-R-T Axes : 000 015 -77 degrees QTc Int : 422 ms Poor data quality, interpretation may be adversely affected Supraventricular tachycardia Septal infarct , age undetermined Nonspecific ST abnormality Abnormal ECG When compared with ECG of 28-MAY-2021 22:25, Supraventricular tachycardia has replaced Sinus rhythm Vent. rate has increased BY 84 BPM Septal infarct is now Present ST now depressed in Anterior leads Nonspecific T wave abnormality, worse in Inferior leads Confirmed by Duran Sauceda ([id number]) on 05/30/2021 6:20:34 AM Referred By: REFERRED SELF Confirmed By:Duran Sauceda
--- NOTE | 2021-05-30 06:22 | Electrocardiogram Report ---
Test Reason : Blood Pressure : / mmHG Vent. Rate : 114 BPM Atrial Rate : 114 BPM P-R Int : 170 ms QRS Dur : 084 ms QT Int : 324 ms P-R-T Axes : 053 020 022 degrees QTc Int : 446 ms Poor data quality, interpretation may be adversely affected Sinus tachycardia Nonspecific ST abnormality Otherwise normal ECG When compared with ECG of 28-MAY-2021 22:48, Sinus rhythm has replaced Supraventricular tachycardia Vent. rate has decreased BY 75 BPM Criteria for Septal infarct are no longer Present T wave amplitude has increased in Lateral leads Confirmed by Duran Sauceda ([id number]) on 05/30/2021 6:21:53 AM Referred By: REFERRED SELF Confirmed By:Duran Sauceda
[2021-05-30 07:11] LABS: Hematocrit (blood only) 39.1 % (37-47); Hemoglobin 13.5 g/dL (12.0-16.0); Mean Corpuscular Hemoglobin 33.3 pg (25-34); Mean Corpuscular Hgb Conc 34.5 g/dL (32-36); Mean Corpuscular Volume 96.5 fL (80-100); Mean Platelet Volume 9.5 fL (7.4-10.4); Platelet Count 114 K/uL (130-400); RDW Coefficient of Variation 14.8 % (11.5-14.5); RDW Standard Deviation 52.3 fL (36.4-46.3); Red Blood Count 4.05 M/uL (4.2-5.4); White Blood Count 2.94 K/uL (4.8-10.8)
[2021-05-30 07:36] LABS: Albumin Level 3.3 gm/dl (3.4-5.0); BUN Creatinine Ratio 11.1 (10-20); Calcium 8.6 mg/dl (8.5-10.1); Creatinine Clr Calc Pharmacy 102.1 ml/min; Magnesium 1.8 mg/dl (1.8-2.4); Potassium 3.6 mmol/L (3.5-5.1)
[2021-05-30 07:39] LABS: Albumin Globulin Ratio 0.9 (0.9-2); Bilirubin,Total 0.8 mg/dl (0.2-1); Globulin 3.6 gm/dl (2.5-4.0); Phosphorus 2.7 mg/dl (2.5-4.9); Total Protein 6.9 gm/dl (6.4-8.2)
[2021-05-30] MEDS ORDERED: POTASSIUM CHLORIDE CRTAB 20 MEQ TABCR PO STA (07:54)
--- NOTE | 2021-05-30 07:56 | Hospitalist Progress Note ---
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 to monitor Dispo: Social service RE discharge planning DVT prophylaxis SCDs Re: Thrombocytopenia Full code Admission and Anticipated Discharge Date Admission Date: May 28, 2021 Subjective Pt seen in follow up of alcohol withdrawal, SVT Currently she is sitting up in the bed, in no acute distress, says that she feels better She is still somewhat tremulous, but improved No chest pain, shortness of breath, palpitations Eating lunch without difficulty Review of Systems Review of Systems: All systems reviewed & are unremarkable except as noted in HPI & below Constitutional: no fever and no chills Respiratory: no cough and no dyspnea Cardiovascular: no chest pain and no palpitations Gastrointestinal: no abdominal pain, no nausea and no vomiting Physical Exam Physical Exam: GENERAL: mildly tremulous female, obese, no respiratory distress HEENT: NC/AT, pink palpebral conjunctivae NECK : Supple, no tenderness CHEST : CTA b/l, no wheezing, rhonchi, crackles HEART : RRR, HR in 80s, no obvious murmurs ABDOMEN: + bowel sounds, mild distention, nontender EXTREMITIES : No LE swelling/tenderness, moves extremities NEUROLOGIC : alert and oriented x3, answering questions appropriately, no facial asymmetry, mildly tremulous, moves extremities SKIN: Normal color, warm Results & Data Results & Data ([facility]) Vital Signs (Past 12 Hours) Vital Signs Temp Pulse Pulse Resp BP Pulse Ox 05/30/21 02:50 36.8 C 79 18 143/97 H 96 05/29/21 23:07 37.4 C 83 19 152/98 H 97 05/29/21 22:30 97 H Laboratory Results 05/30/21 05/30/21 Range/Units 06:30 06:30 WBC 2.94 L (4.8-10.8) K/uL RBC 4.05 L (4.2-5.4) M/uL Hgb 13.5 (12.0-16.0) g/dL Hct 39.1 (37-47) % MCV 96.5 (80-100) fL MCH 33.3 (25-34) pg MCHC 34.5 (32-36) g/dL RDW Std Deviation 52.3 H (36.4-46.3) fL RDW Coeff of Marybeth 14.8 H (11.5-14.5) % Plt Count 114 L (130-400) K/uL MPV 9.5 (7.4-10.4) fL Sodium 135 L (136-145) mmol/L Potassium 3.6 (3.5-5.1) mmol/L Chloride 104 (98-107) mmol/L Carbon Dioxide 24 (21-32) mmol/L Anion Gap 7.0 (3-11) BUN 8 (7-18) mg/dl Creatinine 0.73 (0.6-1.2) mg/dl Est Cr Clr Drug Dosing 102.1 ml/min Est GFR ( Amer) 109.0 ml/min Est GFR (Non-Af Amer) 94.0 ml/min BUN/Creatinine Ratio 11.1 (10-20) Glucose 109 H (70-99) mg/dl Calcium 8.6 (8.5-10.1) mg/dl Phosphorus 2.7 (2.5-4.9) mg/dl Magnesium 1.8 (1.8-2.4) mg/dl Total Bilirubin 0.8 (0.2-1) mg/dl AST 110 H (15-37) U/L ALT 101 H (12-78) U/L Alkaline Phosphatase 95 (45-117) U/L Total Protein 6.9 (6.4-8.2) gm/dl Albumin 3.3 L (3.4-5.0) gm/dl Globulin 3.6 (2.5-4.0) gm/dl Albumin/Globulin Ratio 0.9 (0.9-2) Medications Administered Current Inpatient Medications Acetaminophen (Acetaminophen 325 Mg Tab) 325 mg PO Q6H PRN PRN Reason: Mild Pain Stop: 06/28/21 00:12 Amitriptyline HCl (Amitriptyline Hcl 50 Mg Tab) 50 mg PO HS CASSANDRA Stop: 06/28/21 20:59 Last Admin: 05/29/21 21:20 Dose: 50 mg Documented by: Atorvastatin Calcium (Atorvastatin 40 Mg Tab) 40 mg PO [facility] Stop: 06/28/21 20:59 Last Admin: 05/29/21 21:19 Dose: 40 mg Documented by: Folic Acid (Folic Acid 1 Mg Tab) 1 mg PO QAM [facility] Stop: 06/28/21 00:12 Last Admin: 05/29/21 08:20 Dose: 1 mg Documented by: Gabapentin (Gabapentin 100 Mg Cap) 200 mg PO BID [facility] Stop: 06/28/21 08:59 Last Admin: 05/29/21 21:19 Dose: 200 mg Documented by: Lorazepam (Ativan) 1 mg in 2 mls @ 2 mls/min IV UD PRN; Protocol PRN Reason: EtOH Withdrawl AWSS Score 6,7 Stop: 06/28/21 00:12 Lorazepam (Ativan) 2 mg in 4 mls @ 4 mls/min IV UD PRN; Protocol PRN Reason: EtOH Withdrawl AWSS Score 8,9 Stop: 06/28/21 00:12 Last Admin: 05/30/21 00:57 Dose: 4 mls/min Documented by: Lorazepam (Ativan) 3 mg in 6 mls @ 4 mls/min IV ONCE PRN; Protocol PRN Reason: EtOH Withdrawl AWSS Score >=10 Stop: 06/28/21 00:12 Promethazine HCl 12.5 mg/ (Sodium Chloride) 50.5 mls @ 202 mls/hr IV Q6H PRN PRN Reason: Nausea And Vomiting Stop: 06/28/21 00:12 Magnesium Sulfate/Dextrose (Magnesium Sulfate / D5w) 1 gm in 100 mls @ 50 mls/hr IV ONE ONE Stop: 05/30/21 09:53 Metoprolol Succinate (Metoprolol Succ 50mg Ext Rel Tab) 50 mg PO BID [facility] Stop: 06/28/21 06:24 Last Admin: 05/29/21 21:19 Dose: 50 mg Documented by: Miscellaneous (Remove Clonidine Patch) 1 ea N/A CQWK [facility] Stop: 06/05/21 23:59 Last Admin: 05/29/21 00:39 Dose: Not Given Documented by: Miscellaneous (Check Clonidine Patch Placement) 1 ea N/A QS [facility] Stop: 06/05/21 18:00 Last Admin: 05/29/21 23:52 Dose: 1 ea Documented by: Miscellaneous (Pristiq - Order Awaiting Action) 1 ea N/A QS [facility] Stop: 06/28/21 07:59 Last Admin: 05/29/21 23:52 Dose: Not Given Documented by: Multivitamins (Multivitamin Tab) [facility] Stop: 06/28/21 08:59 Last Admin: 05/29/21 08:21 Dose: 1 tab Documented by: Oxycodone HCl (Oxycodone Hcl Ir 5 Mg Tab (Immediate Release)) 5 mg PO Q4H PRN PRN Reason: Pain Stop: 06/12/21 00:12 Pantoprazole Sodium (Pantoprazole 40 Mg Tab) [facility] Stop: 06/28/21 08:59 Last Admin: 05/29/21 08:20 Dose: 40 mg Documented by: Potassium Chloride (Potassium Chloride Crtab 20 Meq Tabcr) 20 meq PO NOW STA Stop: 05/30/21 07:55 Tamoxifen Citrate (Tamoxifen Citrate 10 Mg Tablet) [facility] Stop: 06/28/21 08:59 Last Admin: 05/29/21 08:21 Dose: 20 mg Documented by: Thiamine HCl (Thiamine Hcl 100 Mg Tab) [facility] Stop: 06/28/21 00:12 Last Admin: 05/29/21 08:21 Dose: 100 mg Documented by:
[2021-05-30] MEDS ORDERED: MAGNESIUM SULFATE / D5W 1 GM/100 ML BAG IV ONE (08:30)
[2021-05-30] MEDS: MULTIVITAMIN TAB PO SCH (08:38)
[2021-05-30] MEDS: CHECK CLONIDINE PATCH PLACEMENT SCH ×2 (08:38→16:52)
[2021-05-30] MEDS: GABAPENTIN 100 MG CAP PO SCH ×2 (08:38→20:20)
[2021-05-30] MEDS: TAMOXIFEN CITRATE 10 MG TABLET PO SCH (08:39)
[2021-05-30] MEDS: PANTOprazole 40 MG TAB PO SCH (08:39)
[2021-05-30] MEDS: FOLIC ACID 1 MG TAB PO SCH (08:39)
[2021-05-30] MEDS: THIAMINE HCL 100 MG TAB PO SCH (08:40)
[2021-05-30] MEDS: METOPROLOL SUCC 50MG EXT REL TAB PO SCH ×2 (08:40→20:20)
--- NOTE | 2021-05-30 16:07 | Communication Note ---
Date of Service: May 30, 2021 patient's BP and P remain >140/90, >90. Would wait until consistently under those parameters to substitute Effexor XR 75 mg po qam for Pristiq 50 mg (non-formulary).
[2021-05-30] MEDS: AMITRIPTYLINE HCL 50 MG TAB PO SCH (20:20)
[2021-05-30] MEDS: ATORVASTATIN 40 MG TAB PO SCH (20:21)
[2021-05-31] MEDS: CHECK CLONIDINE PATCH PLACEMENT SCH ×3 (00:07→16:02)
--- NOTE | 2021-05-31 07:16 | Hospitalist Progress Note ---
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 to monitor Dispo: Social service RE discharge planning. Patient reports she was at rehab several times before, and does not wish to go back to rehab. She is planning to contact close friends/AA and closely follow-up. DVT prophylaxis SCDs Re: Thrombocytopenia Full code Admission and Anticipated Discharge Date Admission Date: May 28, 2021 Subjective Pt seen in follow up of alcohol withdrawal, SVT Currently she is sitting up in the bed, in no acute distress, says that she feels much better, tremors are much improved, she is inquiring about going home over the weekend No chest pain, shortness of breath, palpitations Telemetry reviewed, shows sinus rhythm in the 80s, PVCs Review of Systems Review of Systems: All systems reviewed & are unremarkable except as noted in HPI & below Constitutional: no fever and no chills Respiratory: no cough and no dyspnea Cardiovascular: no chest pain and no palpitations Gastrointestinal: no abdominal pain, no nausea and no vomiting Physical Exam Physical Exam: GENERAL: mildly tremulous female, obese, no respiratory distress HEENT: NC/AT, pink palpebral conjunctivae NECK : Supple, no tenderness CHEST : CTA b/l, no wheezing, rhonchi, crackles HEART : RRR, HR in 80s, no obvious murmurs ABDOMEN: + bowel sounds, mild distention, nontender EXTREMITIES : No LE swelling/tenderness, moves extremities NEUROLOGIC : alert and oriented x3, answering questions appropriately, no facial asymmetry, mildly tremulous (much improved), moves extremities SKIN: Normal color, warm Results & Data Results & Data ([facility]) Vital Signs (Past 12 Hours) Vital Signs Temp Pulse Pulse Resp BP Pulse Ox 05/31/21 07:06 36.8 C 79 18 123/91 99 05/31/21 03:30 36.6 C 76 19 139/96 96 05/30/21 23:20 36.9 C 89 18 120/81 99 05/30/21 22:30 105 H 05/30/21 19:32 37.4 C 96 H 18 140/108 H 96 Laboratory Results 05/31/21 05/31/21 Range/Units 06:26 06:26 WBC 2.79 L (4.8-10.8) K/uL RBC 4.27 (4.2-5.4) M/uL Hgb 14.1 (12.0-16.0) g/dL Hct 41.0 (37-47) % MCV 96.0 (80-100) fL MCH 33.0 (25-34) pg MCHC 34.4 (32-36) g/dL RDW Std Deviation 50.9 H (36.4-46.3) fL RDW Coeff of Marybeth 14.7 H (11.5-14.5) % Plt Count 153 (130-400) K/uL MPV 9.7 (7.4-10.4) fL Sodium 136 (136-145) mmol/L Potassium 3.8 (3.5-5.1) mmol/L Chloride 104 (98-107) mmol/L Carbon Dioxide 25 (21-32) mmol/L Anion Gap 7.0 (3-11) BUN 12 (7-18) mg/dl Creatinine 0.80 (0.6-1.2) mg/dl Est Cr Clr Drug Dosing 92.1 ml/min Est GFR ( Amer) 97.6 ml/min Est GFR (Non-Af Amer) 84.2 ml/min BUN/Creatinine Ratio 15.0 (10-20) Glucose 115 H (70-99) mg/dl Calcium 8.9 (8.5-10.1) mg/dl Phosphorus 3.0 (2.5-4.9) mg/dl Magnesium 2.1 (1.8-2.4) mg/dl Total Bilirubin 0.7 (0.2-1) mg/dl AST 92 H (15-37) U/L ALT 98 H (12-78) U/L Alkaline Phosphatase 106 (45-117) U/L Total Protein 7.7 (6.4-8.2) gm/dl Albumin 3.5 (3.4-5.0) gm/dl Globulin 4.2 H (2.5-4.0) gm/dl Albumin/Globulin Ratio 0.8 L (0.9-2) Medications Administered Current Inpatient Medications Acetaminophen (Acetaminophen 325 Mg Tab) 325 mg PO Q6H PRN PRN Reason: Mild Pain Stop: 06/28/21 00:12 Amitriptyline HCl (Amitriptyline Hcl 50 Mg Tab) 50 mg PO [facility] Stop: 06/28/21 20:59 Last Admin: 05/30/21 20:20 Dose: 50 mg Documented by: Atorvastatin Calcium (Atorvastatin 40 Mg Tab) 40 mg PO [facility] Stop: 06/28/21 20:59 Last Admin: 05/30/21 20:21 Dose: 40 mg Documented by: Folic Acid (Folic Acid 1 Mg Tab) 1 mg PO [facility] Stop: 06/28/21 00:12 Last Admin: 05/30/21 08:39 Dose: 1 mg Documented by: Gabapentin (Gabapentin 100 Mg Cap) 200 mg PO BID [facility] Stop: 06/28/21 08:59 Last Admin: 05/30/21 20:20 Dose: 200 mg Documented by: Lorazepam (Ativan) 1 mg in 2 mls @ 2 mls/min IV UD PRN; Protocol PRN Reason: EtOH Withdrawl AWSS Score 6,7 Stop: 06/28/21 00:12 Lorazepam (Ativan) 2 mg in 4 mls @ 4 mls/min IV UD PRN; Protocol PRN Reason: EtOH Withdrawl AWSS Score 8,9 Stop: 06/28/21 00:12 Last Admin: 05/30/21 21:27 Dose: 4 mls/min Documented by: Lorazepam (Ativan) 3 mg in 6 mls @ 4 mls/min IV ONCE PRN; Protocol PRN Reason: EtOH Withdrawl AWSS Score >=10 Stop: 06/28/21 00:12 Promethazine HCl 12.5 mg/ (Sodium Chloride) 50.5 mls @ 202 mls/hr IV Q6H PRN PRN Reason: Nausea And Vomiting Stop: 06/28/21 00:12 Metoprolol Succinate (Metoprolol Succ 50mg Ext Rel Tab) 50 mg PO BID [facility] Stop: 06/28/21 06:24 Last Admin: 05/30/21 20:20 Dose: 50 mg Documented by: Miscellaneous (Remove Clonidine Patch) 1 ea N/A CQWK [facility] Stop: 06/05/21 23:59 Last Admin: 05/29/21 00:39 Dose: Not Given Documented by: Angelacellkarena (Check Clonidine Patch Placement) 1 ea N/A QS [facility] Stop: 06/05/21 18:00 Last Admin: 05/31/21 00:07 Dose: 1 ea Documented by: Miscellaneous (Pristiq - Order Awaiting Action) 1 ea N/A QS [facility] Stop: 06/28/21 07:59 Last Admin: 05/31/21 00:07 Dose: Not Given Documented by: Multivitamins (Multivitamin Tab) 1 tab PO [facility] Stop: 06/28/21 08:59 Last Admin: 05/30/21 08:38 Dose: 1 tab Documented by: Oxycodone HCl (Oxycodone Hcl Ir 5 Mg Tab (Immediate Release)) 5 mg PO Q4H PRN PRN Reason: Pain Stop: 06/12/21 00:12 Pantoprazole Sodium (Pantoprazole 40 Mg Tab) 40 mg PO [facility] Stop: 06/28/21 08:59 Last Admin: 05/30/21 08:39 Dose: 40 mg Documented by: Tamoxifen Citrate (Tamoxifen Citrate 10 Mg Tablet) 20 mg PO [facility] Stop: 06/28/21 08:59 Last Admin: 05/30/21 08:39 Dose: 20 mg Documented by: Thiamine HCl (Thiamine Hcl 100 Mg Tab) 100 mg PO [facility] Stop: 06/28/21 00:12 Last Admin: 05/30/21 08:40 Dose: 100 mg Documented by:
[2021-05-31 07:17] LABS: Hemoglobin 14.1 g/dL (12.0-16.0); Mean Corpuscular Hgb Conc 34.4 g/dL (32-36); Mean Platelet Volume 9.7 fL (7.4-10.4); Platelet Count 153 K/uL (130-400); RDW Coefficient of Variation 14.7 % (11.5-14.5); RDW Standard Deviation 50.9 fL (36.4-46.3); Red Blood Count 4.27 M/uL (4.2-5.4); White Blood Count 2.79 K/uL (4.8-10.8)
[2021-05-31 07:54] LABS: Albumin Level 3.5 gm/dl (3.4-5.0); Calcium 8.9 mg/dl (8.5-10.1); Creatinine Clr Calc Pharmacy 92.1 ml/min; Est GFR (African American) 97.6 ml/min; Est GFR (Non-African American) 84.2 ml/min; Magnesium 2.1 mg/dl (1.8-2.4); Potassium 3.8 mmol/L (3.5-5.1)
[2021-05-31 07:56] LABS: Albumin Globulin Ratio 0.8 (0.9-2); Bilirubin,Total 0.7 mg/dl (0.2-1); Globulin 4.2 gm/dl (2.5-4.0); Total Protein 7.7 gm/dl (6.4-8.2)
[2021-05-31] MEDS: THIAMINE HCL 100 MG TAB PO SCH (09:20)
[2021-05-31] MEDS: LORazepam 2 MG/4 ML VIAL IV PRN ×2 (09:20→15:52)
[2021-05-31] MEDS: TAMOXIFEN CITRATE 10 MG TABLET PO SCH (09:21)
[2021-05-31] MEDS: PANTOprazole 40 MG TAB PO SCH (09:21)
[2021-05-31] MEDS: MULTIVITAMIN TAB PO SCH (09:21)
[2021-05-31] MEDS: METOPROLOL SUCC 50MG EXT REL TAB PO SCH ×2 (09:22→21:51)
[2021-05-31] MEDS: GABAPENTIN 100 MG CAP PO SCH ×2 (09:22→21:50)
[2021-05-31] MEDS: FOLIC ACID 1 MG TAB PO SCH (09:24)
[2021-05-31] MEDS: AMITRIPTYLINE HCL 50 MG TAB PO SCH (21:50)
[2021-05-31] MEDS: ATORVASTATIN 40 MG TAB PO SCH (23:17)
[2021-06-01] MEDS ORDERED: STAT IV Infusion **Titration per Protocol STA (02:14)
[2021-06-01] MEDS ORDERED: dilTIAZem HCl 5 MG/ML 5 ML VIAL IV STA (02:25)
[2021-06-01] MEDS ORDERED: HEPARIN 25000 UNIT/500 ML D5W IV ONE (02:27)
[2021-06-01] MEDS ORDERED: Heparin IV Adult Wt-Based Standard *NO* Bolus Protocol IV SCH (02:30)
[2021-06-01] MEDS ORDERED: dilTIAZem HCL 125 MG in DEXTROSE 5% 100 ML IV SCH (02:30)
[2021-06-01] MEDS ORDERED: HEPARIN SODIUM/DEXTROSE 25,000 UNITS/500 ML BAG IV SCH (02:30)
[2021-06-01 03:25] LABS: Alanine Aminotransferase 95 U/L (12-78); Albumin Level 3.5 gm/dl (3.4-5.0); Aspartate Aminotransferase 79 U/L (15-37); BUN Creatinine Ratio 18.4 (10-20); Blood Urea Nitrogen 15 mg/dl (7-18); Carbon Dioxide 24 mmol/L (21-32); Chloride 106 mmol/L (98-107); Creatinine Clr Calc Pharmacy 88.7 ml/min; Est GFR (African American) 93.3 ml/min; Est GFR (Non-African American) 80.5 ml/min; Glucose 141 mg/dl (70-99); Potassium 3.8 mmol/L (3.5-5.1); Sodium 136 mmol/L (136-145)
[2021-06-01 03:29] LABS: Albumin Globulin Ratio 0.9 (0.9-2); Alkaline Phosphatase 98 U/L (45-117); Bilirubin,Total 0.7 mg/dl (0.2-1); Globulin 4.1 gm/dl (2.5-4.0); Total Protein 7.6 gm/dl (6.4-8.2); Troponin I < 0.015 ng/ml (0-0.045)
--- NOTE | 2021-06-01 07:14 | Hospitalist Progress Note ---
Date of Service June 01, 2021 Assessment & Plan Admission and Anticipated Discharge Date Admission Date: May 28, 2021 Subjective last night patient was having tachycardia. ekg showed rapid a flutter. patient asymptomatic. started on cardizem drip with bolus, iv heparin, ordered echo and cardiology consult in am. after starting cardizem drip seems converted to sinus. will follow repeat ekg. close monitor. Results & Data Results & Data ([facility]) Vital Signs (Past 12 Hours) Vital Signs Temp Pulse Pulse Resp BP Pulse Ox 06/01/21 03:18 36.9 C 93 H 19 131/99 99 06/01/21 00:38 101 H 05/31/21 23:14 36.8 C 80 19 127/85 97 05/31/21 19:49 36.8 C 89 18 127/92 94
--- NOTE | 2021-06-01 07:40 | Hospitalist Progress Note ---
Date of Service June 01, 2021 Assessment & Plan (1) SVT (supraventricular tachycardia): Recurrent SVT secondary to alcohol withdrawal Resolved after adenosine administration at the ER Tachycardic overnight, concern for Aflutter w/ RVR, started on diltiazem, IV heparin Converted back to sinus Cardiology was consulted - do not believe pt was in aflutter or afib, heparin and diltiazem stopped No further cardiac work-up indicated Continue metoprolol Cont. 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 to monitor Dispo: Social service RE discharge planning. Patient reports she was at rehab several times before, and does not wish to go back to rehab. She is planning to contact close friends/AA and closely follow-up. DVT prophylaxis SCDs Re: Thrombocytopenia Full code Admission and Anticipated Discharge Date Admission Date: May 28, 2021 Subjective Pt seen in follow up of alcohol withdrawal, SVT Overnight patient went into a flutter, RVR, started on Cardizem drip Now seems to be converted back to sinus rhythm Currently she is sitting up in the bed, in no acute distress, says that she feels much better, tremors are much improved, she is inquiring about going home over the weekend No chest pain, shortness of breath, palpitations Review of Systems Review of Systems: All systems reviewed & are unremarkable except as noted in HPI & below Constitutional: no fever and no chills Respiratory: no cough and no dyspnea Cardiovascular: no chest pain and no palpitations Gastrointestinal: no abdominal pain, no nausea and no vomiting Physical Exam Physical Exam: GENERAL: WD/WN F, in NAD HEENT: NC/AT, EOMI, pink palpebral conjunctivae NECK : Supple, no tenderness CHEST : CTA b/l, no wheezing, rhonchi, crackles HEART : RRR, HR in 80s, no obvious murmurs ABDOMEN: + bowel sounds, mild distention, nontender EXTREMITIES : No LE swelling/tenderness, moves extremities NEUROLOGIC : alert and oriented x3, answering questions appropriately, no facial asymmetry, mildly tremulous (much improved), moves extremities SKIN: Normal color, warm Results & Data Results & Data ([facility]) Vital Signs (Past 12 Hours) Vital Signs Temp Pulse Pulse Resp BP Pulse Ox 06/01/21 03:18 36.9 C 93 H 19 131/99 99 06/01/21 00:38 101 H 05/31/21 23:14 36.8 C 80 19 127/85 97 05/31/21 19:49 36.8 C 89 18 127/92 94 Laboratory Results 06/01/21 06/01/21 06/01/21 Range/Units 10:17 10:17 02:56 APTT Pending 25.0 (21.0-31.0) Seconds PTT Ratio Pending 1.0 Sodium (136-145) mmol/L Potassium (3.5-5.1) mmol/L Chloride (98-107) mmol/L Carbon Dioxide (21-32) mmol/L Anion Gap (3-11) BUN (7-18) mg/dl Creatinine (0.6-1.2) mg/dl Est Cr Clr Drug Dosing ml/min Est GFR ( Amer) ml/min Est GFR (Non-Af Amer) ml/min BUN/Creatinine Ratio (10-20) Glucose (70-99) mg/dl Calcium (8.5-10.1) mg/dl Magnesium (1.8-2.4) mg/dl Total Bilirubin (0.2-1) mg/dl AST (15-37) U/L ALT (12-78) U/L Alkaline Phosphatase (45-117) U/L Troponin I Pending (0-0.045) ng/ml Total Protein (6.4-8.2) gm/dl Albumin (3.4-5.0) gm/dl Globulin (2.5-4.0) gm/dl Albumin/Globulin Ratio (0.9-2) A. phagocytophilum DNA (Not Detected) 06/01/21 05/28/21 Range/Units 02:56 21:11 APTT (21.0-31.0) Seconds PTT Ratio Sodium 136 (136-145) mmol/L Potassium 3.8 (3.5-5.1) mmol/L Chloride 106 (98-107) mmol/L Carbon Dioxide 24 (21-32) mmol/L Anion Gap 6.0 (3-11) BUN 15 (7-18) mg/dl Creatinine 0.83 (0.6-1.2) mg/dl Est Cr Clr Drug Dosing 88.7 ml/min Est GFR ( Amer) 93.3 ml/min Est GFR (Non-Af Amer) 80.5 ml/min BUN/Creatinine Ratio 18.4 (10-20) Glucose 141 H (70-99) mg/dl Calcium 9.0 (8.5-10.1) mg/dl Magnesium 2.0 (1.8-2.4) mg/dl Total Bilirubin 0.7 (0.2-1) mg/dl AST 79 H (15-37) U/L ALT 95 H (12-78) U/L Alkaline Phosphatase 98 (45-117) U/L Troponin I < 0.015 (0-0.045) ng/ml Total Protein 7.6 (6.4-8.2) gm/dl Albumin 3.5 (3.4-5.0) gm/dl Globulin 4.1 H (2.5-4.0) gm/dl Albumin/Globulin Ratio 0.9 (0.9-2) A. phagocytophilum DNA Not Detected (Not Detected) Medications Administered Current Inpatient Medications Acetaminophen (Acetaminophen 325 Mg Tab) 325 mg PO Q6H PRN PRN Reason: Mild Pain Stop: 06/28/21 00:12 Last Admin: 05/31/21 14:33 Dose: 325 mg Documented by: Amitriptyline HCl (Amitriptyline Hcl 50 Mg Tab) 50 mg PO [facility] Stop: 06/28/21 20:59 Last Admin: 05/31/21 21:50 Dose: 50 mg Documented by: Atorvastatin Calcium (Atorvastatin 40 Mg Tab) 40 mg PO [facility] Stop: 06/28/21 20:59 Last Admin: 05/31/21 23:17 Dose: 40 mg Documented by: Folic Acid (Folic Acid 1 Mg Tab) [facility] [place] Stop: 06/28/21 00:12 Last Admin: 06/01/21 08:26 Dose: 1 mg Documented by: Gabapentin (Gabapentin 100 Mg Cap) 200 mg PO BID [facility] Stop: 06/28/21 08:59 Last Admin: 06/01/21 08:27 Dose: 200 mg Documented by: Lorazepam (Ativan) 1 mg in 2 mls @ 2 mls/min IV UD PRN; Protocol PRN Reason: EtOH Withdrawl AWSS Score 6,7 Stop: 06/28/21 00:12 Last Admin: 05/31/21 20:15 Dose: 2 mls/min Documented by: Lorazepam (Ativan) 2 mg in 4 mls @ 4 mls/min IV UD PRN; Protocol PRN Reason: EtOH Withdrawl AWSS Score 8,9 Stop: 06/28/21 00:12 Last Admin: 05/31/21 15:52 Dose: 4 mls/min Documented by: Lorazepam (Ativan) 3 mg in 6 mls @ 4 mls/min IV ONCE PRN; Protocol PRN Reason: EtOH Withdrawl AWSS Score >=10 Stop: 06/28/21 00:12 Promethazine HCl 12.5 mg/ (Sodium Chloride) 50.5 mls @ 202 mls/hr IV Q6H PRN PRN Reason: Nausea And Vomiting Stop: 06/28/21 00:12 Diltiazem HCl 125 mg/ Dextrose 125 mls @ 5 mls/hr IV .Q24H [facility]ANDR[facility]; Protocol Stop: 07/01/21 02:29 Last Titration: 06/01/21 06:48 Dose: 5 mg/hr, 5 mls/hr Documented by: Heparin Sodium/Dextrose (Heparin Sodium/Dextrose) 25,000 units in 500 mls @ 26 mls/hr IV .[id number] CASSANDRA; Protocol Stop: 07/01/21 02:29 Last Titration: 06/01/21 06:48 Dose: 1,300 units/hr, 26 mls/hr Documented by: Metoprolol Succinate (Metoprolol Succ 50mg Ext Rel Tab) 50 mg PO BID [facility] Stop: 06/28/21 06:24 Last Admin: 06/01/21 08:27 Dose: 50 mg Documented by: Angelacellaneous (Remove Clonidine Patch) 1 ea N/A CQWK [facility] Stop: 06/05/21 23:59 Last Admin: 05/29/21 00:39 Dose: Not Given Documented by: Angelacellaneous (Check Clonidine Patch Placement) 1 ea N/A QS [facility] Stop: 06/05/21 18:00 Last Admin: 06/01/21 08:26 Dose: 1 ea Documented by: Miscellaneous (Pristiq - Order Awaiting Action) 1 ea N/A QS [facility] Stop: 06/28/21 07:59 Last Admin: 06/01/21 08:26 Dose: Not Given Documented by: Multivitamins (Multivitamin Tab) [facility] [place] Stop: 06/28/21 08:59 Last Admin: 06/01/21 08:27 Dose: 1 tab Documented by: Oxycodone HCl (Oxycodone Hcl Ir 5 Mg Tab (Immediate Release)) 5 mg PO Q4H PRN PRN Reason: Pain Stop: 06/12/21 00:12 Pantoprazole Sodium (Pantoprazole 40 Mg Tab) 40 mg PO [facility] Stop: 06/28/21 08:59 Last Admin: 06/01/21 08:27 Dose: 40 mg Documented by: Tamoxifen Citrate (Tamoxifen Citrate 10 Mg Tablet) 20 [facility] [place] Stop: 06/28/21 08:59 Last Admin: 06/01/21 08:27 Dose: 20 mg Documented by: Thiamine HCl (Thiamine Hcl 100 Mg Tab) 100 mg PO [facility] Stop: 06/28/21 00:12 Last Admin: 06/01/21 08:27 Dose: 100 mg Documented by:
[2021-06-01] MEDS: FOLIC ACID 1 MG TAB PO SCH (08:26)
[2021-06-01] MEDS: CHECK CLONIDINE PATCH PLACEMENT SCH ×3 (08:26→16:31)
[2021-06-01] MEDS: MULTIVITAMIN TAB PO SCH (08:27)
[2021-06-01] MEDS: GABAPENTIN 100 MG CAP PO SCH ×2 (08:27→20:08)
[2021-06-01] MEDS: PANTOprazole 40 MG TAB PO SCH (08:27)
[2021-06-01] MEDS: METOPROLOL SUCC 50MG EXT REL TAB PO SCH ×2 (08:27→20:08)
[2021-06-01] MEDS: THIAMINE HCL 100 MG TAB PO SCH (08:27)
[2021-06-01] MEDS: TAMOXIFEN CITRATE 10 MG TABLET PO SCH (08:27)
--- NOTE | 2021-06-01 10:27 | Electrocardiogram Report ---
Test Reason : Blood Pressure : / mmHG Vent. Rate : 080 BPM Atrial Rate : 080 BPM P-R Int : 168 ms QRS Dur : 090 ms QT Int : 380 ms P-R-T Axes : 063 -02 025 degrees QTc Int : 438 ms Normal sinus rhythm Normal ECG When compared with ECG of 01-JUN-2021 01:56, (unconfirmed) Sinus rhythm has replaced Atrial flutter Vent. rate has decreased BY [address] no longer depressed in Inferior leads ST no longer depressed in Anterolateral leads T wave inversion no longer evident in Inferior leads Nonspecific T wave abnormality no longer evident in Lateral leads Confirmed by Mario Sarah ([id number]) on 06/01/2021 10:26:50 AM Referred By: REFERRED SELF Confirmed By:Franck Saarh
--- NOTE | 2021-06-01 10:29 | Electrocardiogram Report ---
Test Reason : Blood Pressure : / mmHG Vent. Rate : 172 BPM Atrial Rate : 344 BPM P-R Int : 000 ms QRS Dur : 080 ms QT Int : 300 ms P-R-T Axes : 181 013 -89 degrees QTc Int : 507 ms Supraventricular tachycardia Marked ST abnormality, possible inferior subendocardial injury Abnormal ECG When compared with ECG of 28-MAY-2021 22:52, Supraventricular tachycardia has replaced Sinus rhythm Vent. rate has increased BY [address] now depressed in Inferior leads ST now depressed in Anterolateral leads T wave inversion more evident in Inferior leads Nonspecific T wave abnormality now evident in Lateral leads Confirmed by Mario Sarah ([id number]) on 06/01/2021 10:29:13 AM Referred By: REFERRED SELF Confirmed By:Franck Sarah
[2021-06-01 10:48] LABS: Partial Thromboplastin Ratio 1.4; Partial Thromboplastin Time 36.5 Seconds (21.0-31.0)
[2021-06-01] MEDS ORDERED: HEPARIN SOD (PORCINE) 1000 UNIT/ML IV ONE (11:10)
--- NOTE | 2021-06-01 11:34 | Cardiology Consultation ---
Date of Consultation June 01, 2021 Assessment & Plan (1) SVT (supraventricular tachycardia): (2) Alcohol withdrawal: At this point I do not believe any additional cardiac work-up is indicated. I would continue the patient on metoprolol. I do not believe that this was atrial flutter or fibrillation and I believe the IV heparin can be discontinued as well as the diltiazem. I would put her on regular Lovenox subcu prophylaxis. At this time I do not believe any additional cardiac testing is indicated. 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 She has been readmitted again with alcohol withdrawal. Upon presentation she had a narrow complex tachycardia and according to records was given adenosine which broke the arrhythmia. She was then started on a diltiazem drip as well as being placed back on her oral metoprolol. She has remained in sinus rhythm. She has no ongoing complaints. She does not have currently delirium. Allergies Allergy/AdvReac Type Severity Reaction Status Date / Time levothyroxine Allergy Severe facial Unverified 05/28/21 22:02 swelling minocycline [From Minocin] Allergy Mild Rash Verified 05/28/21 22:02 Sulfa (Sulfonamide Allergy Unknown PT DOESN'T Verified 05/28/21 22:02 Antibiotics) REMEMBER REACTION Home Medications Medication Instructions Recorded Confirmed Type amitriptyline 50 mg PO HS 12/13/19 05/28/21 History desvenlafaxine succinate [Pristiq] 50 mg PO QAM 12/13/19 05/28/21 History omeprazole magnesium [Prilosec OTC] 20 mg PO QAM 12/13/19 05/28/21 History atorvastatin 40 mg PO HS 04/08/20 05/28/21 History gabapentin 100 mg capsule 200 mg PO BID 04/10/20 05/28/21 History tamoxifen 20 mg PO QAM 06/14/20 05/28/21 History metoprolol succinate 25 mg PO BID 01/09/21 05/28/21 History propranolol 10 mg PO BID PRN 01/09/21 05/28/21 History desvenlafaxine succinate [Pristiq] 50 mg PO DAILY #14 tab 06/01/21 Rx Patient History Medical History Abnormal thyroid function test started on 25mcg levothyroxine Abrasion, corneal Alcohol dependence Alcohol withdrawal Asthma Breast hematoma after procedure Left breast after biopsy in 11/2019 Depression 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 EGD exam- Normal examined duodenum. Bilious gastric fluid. Mild gastritis ? bilious etiology. Bx neg for H. pylori. Prominent fold just distal to GEJ. Bx- Squamocolumnar mucosa with mild carditis and hyperplastic changes. Negative for intestinal metaplasia and dysplasia. Medium sized hiatus hernia." On 03/10/17 15:26 Rita España wrote "07/04/2009- EUS exam- No choledocholithiasis, No masses appreciated in the entire pancreas. EGD exam- Normal examined duodenum. Bilious gastric fluid. Mild gastritis ? bilious etiology. This was biopsied to r/o H Pylori. Prominent fold just distal to GEJ. This was biopsied. Medium sized hiatus hernia." History of breast biopsy 11/30/2019 - Left Breast 02/08/2020 - Right Breast History of breast lump/mass excision 02/15/2020 - Right Breast History of dilation and curettage 2003 - s/p miscarriage History of lumpectomy of left breast 02/15/2020 History of lumpectomy of right breast 03/28/2020 History of mandibular surgery 1986 History of surgery 05/07/2016 - Anal Tag Removal S/P laparoscopic cholecystectomy 02/23/2004 Family History Mother Breast cancer, Onset Age: 76 Currently battling metastatic breast cancer Grandmother (Paternal) , Passed age 93 of stomach cancer No problems noted. Grandfather (Maternal) , Passed age 72 of colon cancer No problems noted. Father , Passed age 67 of complications from menigioma No problems noted. Aunt Breast cancer, Onset Age: 34 Alive and well Aunt Breast cancer, Onset Age: 62 alive and well Aunt Breast cancer, Onset Age: 62 Alive and well Brother Stroke Dementia Sister No problems noted. Son No problems noted. 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 Physical Exam Physical Exam: General: no acute distress and stated age Head: normocephalic, no masses, lesions, tenderness or abnormalities Eyes: conjunctiva are pink and non-injected, sclera clear Neck: supple, no adenopathy, no bruits, normal jugular venous pulse, no hepatojugular reflux Chest: normal shape and normal respiratory effort Lungs: clear to auscultation and percussion Cardiac Exam: - regular rate & rhythm, no murmurs gallops or rubs - normal S1, normal S2 Pulses: 2(+) throughout Abdomen: abdomen soft, non-tender, no abnormal masses and no hepatosplenomegaly Musculoskeletal: no gait disturbance, no joint inflammation, no deforming arthritis Extremities: no edema and no cyanosis Neuro: grossly normal exam Results & Data ([facility]) Vital Signs (Past 12 Hours) Vital Signs Temp Pulse Pulse Resp BP Pulse Ox Pulse Ox 06/01/21 08:31 37.3 C 82 16 123/91 96 06/01/21 08:22 37 C 77 20 113/81 99 06/01/21 08:00 71 99 06/01/21 03:18 36.9 C 93 H 19 131/99 99 06/01/21 00:38 101 H Laboratory Results Laboratory Results - last 24 hr 05/28/21 06/01/21 06/01/21 21:11 02:56 02:56 APTT 25.0 PTT Ratio 1.0 Sodium 136 Potassium 3.8 Chloride 106 Carbon Dioxide 24 Anion Gap 6.0 BUN 15 Creatinine 0.83 Est Cr Clr Drug Dosing 88.7 Est GFR ( Amer) 93.3 Est GFR (Non-Af Amer) 80.5 BUN/Creatinine Ratio 18.4 Glucose 141 H Calcium 9.0 Magnesium 2.0 Total Bilirubin 0.7 AST 79 H ALT 95 H Alkaline Phosphatase 98 Troponin I < 0.015 Total Protein 7.6 Albumin 3.5 Globulin 4.1 H Albumin/Globulin Ratio 0.9 A. phagocytophilum DNA Not Detected 06/01/21 06/01/21 10:17 10:17 APTT 36.5 H PTT Ratio 1.4 Sodium Potassium Chloride Carbon Dioxide Anion Gap BUN Creatinine Est Cr Clr Drug Dosing Est GFR ( Amer) Est GFR (Non-Af Amer) BUN/Creatinine Ratio Glucose Calcium Magnesium Total Bilirubin AST ALT Alkaline Phosphatase Troponin I < 0.015 Total Protein Albumin Globulin Albumin/Globulin Ratio A. phagocytophilum DNA Medications Administered Current Inpatient Medications Acetaminophen (Acetaminophen 325 Mg Tab) 325 mg PO Q6H PRN PRN Reason: Mild Pain Stop: 06/28/21 00:12 Last Admin: 05/31/21 14:33 Dose: 325 mg Documented by: Amitriptyline HCl (Amitriptyline Hcl 50 Mg Tab) 50 mg PO HS [facility] Stop: 06/28/21 20:59 Last Admin: 05/31/21 21:50 Dose: 50 mg Documented by: Atorvastatin Calcium (Atorvastatin 40 Mg Tab) 40 mg PO HS [facility] Stop: 06/28/21 20:59 Last Admin: 05/31/21 23:17 Dose: 40 mg Documented by: Enoxaparin Sodium (Enoxaparin Inj 40 Mg/0.4 Ml Syr) 40 mg SQ QAM [facility] Stop: 07/02/21 08:59 Folic Acid (Folic Acid 1 Mg Tab) 1 mg PO QAM [facility] Stop: 06/28/21 00:12 Last Admin: 06/01/21 08:26 Dose: 1 mg Documented by: Gabapentin (Gabapentin 100 Mg Cap) 200 mg PO BID [facility] Stop: 06/28/21 08:59 Last Admin: 06/01/21 08:27 Dose: 200 mg Documented by: Lorazepam (Ativan) 1 mg in 2 mls @ 2 mls/min IV UD PRN; Protocol PRN Reason: EtOH Withdrawl AWSS Score 6,7 Stop: 06/28/21 00:12 Last Admin: 05/31/21 20:15 Dose: 2 mls/min Documented by: Lorazepam (Ativan) 2 mg in 4 mls @ 4 mls/min IV UD PRN; Protocol PRN Reason: EtOH Withdrawl AWSS Score 8,9 Stop: 06/28/21 00:12 Last Admin: 05/31/21 15:52 Dose: 4 mls/min Documented by: Lorazepam (Ativan) 3 mg in 6 mls @ 4 mls/min IV ONCE PRN; Protocol PRN Reason: EtOH Withdrawl AWSS Score >=10 Stop: 06/28/21 00:12 Promethazine HCl 12.5 mg/ (Sodium Chloride) 50.5 mls @ 202 mls/hr IV Q6H PRN PRN Reason: Nausea And Vomiting Stop: 06/28/21 00:12 Metoprolol Succinate (Metoprolol Succ 50mg Ext Rel Tab) 50 mg PO BID [facility] Stop: 06/28/21 06:24 Last Admin: 06/01/21 08:27 Dose: 50 mg Documented by: Miscellaneous (Remove Clonidine Patch) 1 ea N/A CQWK [facility] Stop: 06/05/21 23:59 Last Admin: 05/29/21 00:39 Dose: Not Given Documented by: Miscellaneous (Check Clonidine Patch Placement) 1 ea N/A QS [facility] Stop: 06/05/21 18:00 Last Admin: 06/01/21 08:26 Dose: 1 ea Documented by: Miscellaneous (Pristiq - Order Awaiting Action) 1 ea N/A QS [facility] Stop: 06/28/21 07:59 Last Admin: 06/01/21 08:26 Dose: Not Given Documented by: Multivitamins (Multivitamin Tab) [facility] Stop: 06/28/21 08:59 Last Admin: 06/01/21 08:27 Dose: 1 tab Documented by: Oxycodone HCl (Oxycodone Hcl Ir 5 Mg Tab (Immediate Release)) 5 mg PO Q4H PRN PRN Reason: Pain Stop: 06/12/21 00:12 Pantoprazole Sodium (Pantoprazole 40 Mg Tab) 40 mg PO [facility] Stop: 06/28/21 08:59 Last Admin: 06/01/21 08:27 Dose: 40 mg Documented by: Tamoxifen Citrate (Tamoxifen Citrate 10 Mg Tablet) 20 mg PO QAM [facility] Stop: 06/28/21 08:59 Last Admin: 06/01/21 08:27 Dose: 20 mg Documented by: Thiamine HCl (Thiamine Hcl 100 Mg Tab) 100 mg PO [facility] Stop: 06/28/21 00:12 Last Admin: 06/01/21 08:27 Dose: 100 mg Documented by: (1) Alcohol withdrawal Complication of substance-induced condition: with unspecified complication Qualified Code(s): F10.239 - Alcohol dependence with withdrawal, unspecified
--- NOTE | 2021-06-01 12:02 | Communication Note ---
Date of Service: June 01, 2021 Stop by the answer patient's questions regarding potential medication options for alcohol abuse. Patient describes crippling anxiety which caused her to re lapse. She is also described 3 prior rehab placements as well as being cut off by her insurance for any future rehab placements. Patient is well connected to [facility] and has a binder caser as well as a psychiatric nurse practitioner and a therapist whom she sees frequently. Patient is currently looking for a different outpatient provider who is more willing to prescribe medications to help with her alcohol abuse. She does benefit from the services however still finds herself at times drinking to deal with her issues. Patient is also endorsing significant anxiety especially around these hospitalizations. Different options were discussed including the potential for benzodiazepines, which are typically contraindicated for patients with addiction history for their potentially addictive nature. However in this case of patient who is taking multiple treatments for her cancer as well as avoiding interactions, benzodiazepines may be useful to help treat her anxiety and therefore prevent further relapses. Recommendations: Upon discharge: Okay to continue Pristiq, patient has supply at home. Please prescribe patient with 1 mg of Ativan p.o. as needed daily to help combat her anxiety during this transition time.
[2021-06-01] MEDS: DESVENLAFAXINE SUCCINATE PO SCH (12:23)
[2021-06-01] MEDS: AMITRIPTYLINE HCL 50 MG TAB PO SCH (20:08)
[2021-06-01] MEDS: ATORVASTATIN 40 MG TAB PO SCH (20:08)
[2021-06-02] MEDS: CHECK CLONIDINE PATCH PLACEMENT SCH ×2 (00:01→08:30)
[2021-06-02 03:42] VITALS: TEMP 98.2
--- NOTE | 2021-06-02 07:36 | Hospitalist Progress Note ---
Date of Service June 02, 2021 Assessment & Plan (1) SVT (supraventricular tachycardia): Recurrent SVT secondary to alcohol withdrawal Resolved after adenosine administration at the ER Tachycardic overnight, concern for Aflutter w/ RVR, started on diltiazem, IV heparin Converted back to sinus Cardiology was consulted - do not believe pt was in aflutter or afib, heparin and diltiazem stopped No further cardiac work-up indicated Continue metoprolol Cont. 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 to monitor Dispo: Social service RE discharge planning. Patient reports she was at rehab several times before, and does not wish to go back to rehab. She is planning to contact close friends/AA and closely follow-up. DVT prophylaxis SCDs Re: Thrombocytopenia Full code Admission and Anticipated Discharge Date Admission Date: May 28, 2021 Subjective Pt seen in follow up of alcohol withdrawal, SVT Currently she is sitting up in the bed, in no acute distress, says that she feels much better, tremors are much improved, she is inquiring about going home No chest pain, shortness of breath, palpitations Review of Systems Review of Systems: All systems reviewed & are unremarkable except as noted in HPI & below Constitutional: no fever and no chills Respiratory: no cough and no dyspnea Cardiovascular: no chest pain and no palpitations Gastrointestinal: no abdominal pain, no nausea and no vomiting Physical Exam Physical Exam: GENERAL: WD/WN F, in NAD HEENT: NC/AT, EOMI, pink palpebral conjunctivae NECK : Supple, no tenderness CHEST : CTA b/l, no wheezing, rhonchi, crackles HEART : RRR, HR in 80s, no obvious murmurs ABDOMEN: + bowel sounds, mild distention, nontender EXTREMITIES : No LE swelling/tenderness, moves extremities NEUROLOGIC : alert and oriented x3, answering questions appropriately, no facial asymmetry, mildly tremulous (much improved), moves extremities SKIN: Normal color, warm Results & Data Results & Data ([facility]) Vital Signs (Past 12 Hours) Vital Signs Temp Pulse Pulse Resp BP Pulse Ox 06/02/21 03:41 36.8 C 79 20 128/90 97 06/01/21 23:59 72 06/01/21 23:39 37 C 74 22 134/96 98 06/01/21 20:20 37.1 C 86 22 137/99 98 Laboratory Results 06/01/21 06/01/21 05/28/21 Range/Units 10:17 10:17 21:11 APTT 36.5 H (21.0-31.0) Seconds PTT Ratio 1.4 Troponin I < 0.015 (0-0.045) ng/ml A. phagocytophilum DNA Not Detected (Not Detected) Medications Administered Current Inpatient Medications Acetaminophen (Acetaminophen 325 Mg Tab) 325 mg PO Q6H PRN PRN Reason: Mild Pain Stop: 06/28/21 00:12 Last Admin: 05/31/21 14:33 Dose: 325 mg Documented by: Amitriptyline HCl (Amitriptyline Hcl 50 Mg Tab) 50 mg PO HS [facility] Stop: 06/28/21 20:59 Last Admin: 06/01/21 20:08 Dose: 50 mg Documented by: Atorvastatin Calcium (Atorvastatin 40 Mg Tab) 40 mg PO HS [facility] Stop: 06/28/21 20:59 Last Admin: 06/01/21 20:08 Dose: 40 mg Documented by: Desvenlafaxine Succinate (Desvenlafaxine Succinate) 1 ea PO DAILY [facility] Stop: 07/01/21 12:59 Last Admin: 06/01/21 12:23 Dose: 1 ea Documented by: Enoxaparin Sodium (Enoxaparin Inj 40 Mg/0.4 Ml Syr) 40 mg SQ QAM [facility] Stop: 07/02/21 08:59 Folic Acid (Folic Acid 1 Mg Tab) 1 mg PO QAM [facility] Stop: 06/28/21 00:12 Last Admin: 06/01/21 08:26 Dose: 1 mg Documented by: Gabapentin (Gabapentin 100 Mg Cap) 200 mg PO BID [facility] Stop: 06/28/21 08:59 Last Admin: 06/01/21 20:08 Dose: 200 mg Documented by: Lorazepam (Ativan) 1 mg in 2 mls @ 2 mls/min IV UD PRN; Protocol PRN Reason: EtOH Withdrawl AWSS Score 6,7 Stop: 06/28/21 00:12 Last Admin: 05/31/21 20:15 Dose: 2 mls/min Documented by: Lorazepam (Ativan) 2 mg in 4 mls @ 4 mls/min IV UD PRN; Protocol PRN Reason: EtOH Withdrawl AWSS Score 8,9 Stop: 06/28/21 00:12 Last Admin: 05/31/21 15:52 Dose: 4 mls/min Documented by: Lorazepam (Ativan) 3 mg in 6 mls @ 4 mls/min IV ONCE PRN; Protocol PRN Reason: EtOH Withdrawl AWSS Score >=10 Stop: 06/28/21 00:12 Promethazine HCl 12.5 mg/ (Sodium Chloride) 50.5 mls @ 202 mls/hr IV Q6H PRN PRN Reason: Nausea And Vomiting Stop: 06/28/21 00:12 Metoprolol Succinate (Metoprolol Succ 50mg Ext Rel Tab) 50 mg PO BID [facility] Stop: 06/28/21 06:24 Last Admin: 06/01/21 20:08 Dose: 50 mg Documented by: Miscellaneous (Remove Clonidine Patch) 1 ea N/A CQWK [facility] Stop: 06/05/21 23:59 Last Admin: 05/29/21 00:39 Dose: Not Given Documented by: Miscellaneous (Check Clonidine Patch Placement) 1 ea N/A QS [facility] Stop: 06/05/21 18:00 Last Admin: 06/02/21 00:01 Dose: 1 ea Documented by: Multivitamins (Multivitamin Tab) 1 tab PO QAM [facility] Stop: 06/28/21 08:59 Last Admin: 06/01/21 08:27 Dose: 1 tab Documented by: Oxycodone HCl (Oxycodone Hcl Ir 5 Mg Tab (Immediate Release)) 5 mg PO Q4H PRN PRN Reason: Pain Stop: 06/12/21 00:12 Pantoprazole Sodium (Pantoprazole 40 Mg Tab) 40 mg PO QAM [facility] Stop: 06/28/21 08:59 Last Admin: 06/01/21 08:27 Dose: 40 mg Documented by: Tamoxifen Citrate (Tamoxifen Citrate 10 Mg Tablet) 20 mg PO QAM [facility] Stop: 06/28/21 08:59 Last Admin: 06/01/21 08:27 Dose: 20 mg Documented by: Thiamine HCl (Thiamine Hcl 100 Mg Tab) 100 mg PO QAM [facility] Stop: 06/28/21 00:12 Last Admin: 06/01/21 08:27 Dose: 100 mg Documented by:
[2021-06-02 08:17] VITALS: BP 124/62; PULSE 88; O2SAT 98
[2021-06-02] MEDS: DESVENLAFAXINE SUCCINATE PO SCH (08:30)
[2021-06-02] MEDS: THIAMINE HCL 100 MG TAB PO SCH (08:31)
[2021-06-02] MEDS: TAMOXIFEN CITRATE 10 MG TABLET PO SCH (08:31)
[2021-06-02] MEDS: MULTIVITAMIN TAB PO SCH (08:31)
[2021-06-02] MEDS: GABAPENTIN 100 MG CAP PO SCH (08:31)
[2021-06-02] MEDS: METOPROLOL SUCC 50MG EXT REL TAB PO SCH (08:31)
[2021-06-02] MEDS: FOLIC ACID 1 MG TAB PO SCH (08:31)
[2021-06-02 09:00] LABS: Basophils # (auto) 0.03 K/uL (0-0.2); Basophils % (auto) 0.9 %; Eosinophils # (auto) 0.14 K/uL (0-0.5); Eosinophils % (auto) 4.4 %; Hematocrit (blood only) 39.8 % (37-47); Hemoglobin 13.9 g/dL (12.0-16.0); Immature Granulocytes # (auto) 0.01 K/uL (0.00-0.02); Immature Granulocytes % (auto) 0.3 %; Lymphocytes # (auto) 0.86 K/uL (1.2-3.4); Lymphocytes % (auto) 26.9 %; Mean Corpuscular Hemoglobin 32.9 pg (25-34); Mean Corpuscular Hgb Conc 34.9 g/dL (32-36); Mean Corpuscular Volume 94.1 fL (80-100); Mean Platelet Volume 9.2 fL (7.4-10.4); Monocytes # (auto) 0.77 K/uL (0.11-0.59); Monocytes % (auto) 24.1 %; Neutrophils # (auto) 1.39 K/uL (1.4-6.5); Neutrophils % (auto) 43.4 %; Platelet Count 173 K/uL (130-400); RDW Coefficient of Variation 14.8 % (11.5-14.5); RDW Standard Deviation 49.5 fL (36.4-46.3); Red Blood Count 4.23 M/uL (4.2-5.4)
[2021-06-02] MEDS ORDERED: ENOXAPARIN INJ 40 MG/0.4 ML SYR SQ SCH (09:00)
[2021-06-02 09:14] LABS: BUN Creatinine Ratio 24.4 (10-20); Calcium 9.2 mg/dl (8.5-10.1); Creatinine Clr Calc Pharmacy 88.6 ml/min; Est GFR (African American) 93.3 ml/min; Est GFR (Non-African American) 80.5 ml/min; Magnesium 1.9 mg/dl (1.8-2.4); Potassium 3.7 mmol/L (3.5-5.1)
[2021-06-02] MEDS: PANTOprazole 40 MG TAB PO SCH (09:17)
[2021-06-02 09:24] LABS: Phosphorus 3.8 mg/dl (2.5-4.9)
--- NOTE | 2021-06-02 10:02 | Discharge Summary ---
Date of Service June 02, 2021 Admission HPI Per Admitting Provider Medical history significant for PSVT, hyperlipidemia, mood disorder, ongoing alcohol abuse, DCIS status post surgery/radiation/ongoing tamoxifen Rx. Last confinement October 2020 for alcohol withdrawal. Patient went back to drinking months ago owing to personal stressors. Mood not the best but denies suicidality. This morning, patient tried to cut down on alcohol intake. Shakiness noted at home. Patient denies chest pain, S OB. Patient consulted ER for detox. Patient went into SVT during ER stay. Cardiac rate 180s. SVT terminated with 1 dose of adenosine. Patient currently feeling better. Admission Exam Per Admitting Provider GENERAL: uncomfortable, tremulous, obese, no respiratory distress SKIN: Normal color, warm HEENT: Mcneal palpebral conjunctivae, no ptosis, dry buccal mucosa NECK : Supple, short neck, no tenderness CHEST : CTA, no tenderness HEART : Tachycardic, no obvious murmurs ABDOMEN: Some distention, nontender EXTREMITIES : No LE swelling/tenderness, no other conspicuous deformities noted NEUROLOGIC : Coherent, no facial asymmetry, tremulous, no other gross focality Principal Diagnosis Alcohol withdrawal, PSVT Discharge Exam GENERAL: WD/WN F, in NAD HEENT: NC/AT, EOMI, pink palpebral conjunctivae NECK : Supple, no tenderness CHEST : CTA b/l, no wheezing, rhonchi, crackles HEART : RRR, HR in 80s, no obvious murmurs ABDOMEN: + bowel sounds, mild distention, nontender EXTREMITIES : No LE swelling/tenderness, moves extremities NEUROLOGIC : alert and oriented x3, answering questions appropriately, no facial asymmetry, mildly tremulous (much improved), moves extremities SKIN: Normal color, warm Discharge Data Allergies Allergy/AdvReac Type Severity Reaction Status Date / Time levothyroxine Allergy Severe facial Unverified 05/28/21 22:02 swelling minocycline [From Minocin] Allergy Mild Rash Verified 05/28/21 22:02 Sulfa (Sulfonamide Allergy Unknown PT DOESN'T Verified 05/28/21 22:02 Antibiotics) REMEMBER REACTION Consultations 05/28/21 22:06 ED Decision to Admit Stat 05/29/21 06:23 Consult Psychiatry Routine 06/01/21 08:00 Consult Cardiology Routine Hospital Course (1) SVT (supraventricular tachycardia): Recurrent SVT secondary to alcohol withdrawal Resolved after adenosine administration at the ER Tachycardic overnight, concern for Aflutter w/ RVR, started on diltiazem, IV heparin Converted back to sinus Cardiology was consulted - do not believe pt was in aflutter or afib, heparin and diltiazem stopped No further cardiac work-up indicated Continue metoprolol Cont. 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 to monitor Dispo: Social service RE discharge planning. Patient reports she was at rehab several times before, and does not wish to go back to rehab. She is planning to contact close friends/AA and closely follow-up. DVT prophylaxis SCDs Re: Thrombocytopenia Full code Total Time Total Time Spent Total Time Spent (In Minutes): 35 Total Time Includes: Examination of the Patient, Discharge Planning and Medication Reconciliation Discharge Plan Discharge Items Patient Disposition: Home - Self-Care Reason For Visit: PSVT, ETOH WITHDRAWAL Discharge Diagnosis: Alcohol withdrawal, PSVT Activity: Per Instructions section Non-emergency contact: Primary Care Provider Call non-emergency contact if: you have any medication questions and your symptoms worsen Follow-up/Referrals: Sissy Thapa MD [Outside Practitioners] - (Date & Time 12/11/2021 4:15 PM Provider Sissy Thapa MD Department Dermatology [facility] ) Aidan Chaves DO [Primary Care Provider] - (Date & Time 06/06/2021 11:20 AM Provider Aidan Chaves DO Department Family Practice [facility] ) Diet: Heart Healthy Addtl Attending Provider Instructions: Follow-up with your primary care doctor, the appointment was scheduled for you for June 06. It is crucial that you abstain completely from alcohol. Follow-up closely with your support system - therapists/counselors. Your metoprolol dose was increased to 50 mg twice a day. Continue taking vitamins, folic acid and thiamine. Pending Studies at Discharge: No Stand-Alone Forms: My [place], Smoking Cessation, Suicide Prevention Resources Medications and DC Order Prescriptions: New desvenlafaxine succinate [Pristiq] 50 mg tablet extended release 24 hr 50 mg PO DAILY Qty: 14 RF: 0 metoprolol succinate 50 mg Tablet Extended Release 24 Hr 50 mg PO BID Qty: 30 RF: 0 folic acid 1 mg Tablet 1 mg PO QAM Qty: 30 RF: 0 thiamine HCl (vitamin B1) [Vitamin B-1] 100 mg Tablet 100 mg PO QAM Qty: 30 RF: 0 Continued amitriptyline 50 mg tablet 50 mg PO HS RF: 0 omeprazole magnesium [Prilosec OTC] 20 mg Tablet,Delayed Release (Dr/Ec) 20 mg PO QAM RF: 0 desvenlafaxine succinate [Pristiq] 50 mg Tablet Extended Release 24 Hr 50 mg PO QAM RF: 0 gabapentin 100 mg capsule 200 mg PO BID RF: 0 atorvastatin 40 mg tablet 40 mg PO HS RF: 0 tamoxifen 20 mg tablet 20 mg PO QAM RF: 0 propranolol 10 mg tablet 10 mg PO BID PRN (Reason: Anxiety) RF: 0 metoprolol succinate 25 mg tablet extended release 24 hr 25 mg PO BID RF: 0 desvenlafaxine succinate [Pristiq] 50 mg Tablet Extended Release 24 Hr 50 mg PO QAM Qty: 14 RF: 0 Changed metoprolol succinate 25 mg tablet extended release 24 hr 50 mg PO BID Qty: 0 RF: 0 Discharge Orders: Discharge Order (Routine); Ordered 06/02/21 Ordered By: Balta Cote Admission Data Admit Date/Time: 05/28/21 22:58 Attending Provider: Balta Cote Admit Provider: Melquiades Miller Primary Care Provider: Aidan Chaves Other Providers: Melquiades Miller ; Dr Zachary ; Rubina Bryan ; Destin Lindquist ; Harpreet Healy ; Renny Valerio ; Hayder Heck ; Butch Chou ; Frandy Berman ; Jesus No ; Leida Huynh ; Nunu Van ; Sandy Rosales ; Adonis Rosenbaum Other Interventions: PSY Interdisciplinary Discharge Planning Last Done: 05/30/21 13:17
== END 2021-06-02 10:44 | disposition home or self-care (01) | DRG 897 ==
LOC: ED 20:24 → 2S 22:58

== ENCOUNTER 2022-03-01 17:02 | Inpatient (IN) ==
[2022-03-01] MEDS ORDERED: MULTI-VITAMIN INFUSION 10 ML, THIAMINE HCL 100 MG, FOLIC ACID 1 MG in SODIUM CHLORIDE 0... IV ONE (17:34)
[2022-03-01] MEDS ORDERED: SODIUM CHLORIDE 0.9% 1000ML 500 ML IV ONE (17:34)
[2022-03-01] MEDS ORDERED: PROMETHAZINE 12.5 MG/50.5 ML BAG IV STA (17:34)
--- NOTE | 2022-03-01 17:47 | Emergency Department Note ---
Impression & Plan Alcohol withdrawal, Tachycardia, Alcohol intoxication, Alcohol abuse ED Provider Note NAME: KAUSHAL ROBLEDO AGE: 56 SEX: F : 1965 ARRIVES VIA: Walk-In INFORMANT: [Patient] ED PROVIDER(S): [Satish Julien MD] CHIEF COMPLAINT: Detox request HISTORY OF PRESENT ILLNESS: The patient is a 56-year-old female who has a history of alcohol abuse. She has been to rehab and has gone through alcohol withdrawal before. She was sober for 7 months or so but then began drinking alcohol again 2 weeks ago. Patient drinks 3 bottles of wine a day. She last had alcohol about 20 minutes ago. Today, some friends intervened and she is here for rehab and detox. There has been no vomiting, no fever, no chest pain or abdominal pain. No diarrhea. She has been in baseline health otherwise. The patient states that she has had DTs before, no history of seizures. REVIEW OF SYSTEMS: See HPI for pertinent positives and negatives. A total of ten systems were reviewed and were otherwise negative. PMHx/PSHx: See Below SOCIAL HISTORY: See Below. PHYSICAL EXAM: GENERAL: Patient is in mild distress, anxious. HEENT: No acute trauma, normocephalic atraumatic, mucous membranes dry, no nasal congestion, no scleral icterus. NECK: No stridor, no adenopathy, no meningismus, trachea is midline. LUNGS: Clear to auscultation bilaterally, no wheeze, no rhonchi, breath sounds equal. HEART: Tachycardic, regular rhythm, no murmurs. ABDOMEN: Soft, nontender, bowel sounds positive, no hernias, no peritonitis. EXTREMITIES: No cyanosis or edema, full range of motion of all the joints without pain or difficulty, no signs for acute trauma. NEUROLOGIC: Oriented x 3, no acute motor or sensory deficits, no focal weakness. Slight upper extremity tremor noted. SKIN: No rash, no jaundice, no diaphoresis. Psychiatric: Cooperative, not suicidal. Voluntary. Flat affect DIFFERENTIAL DIAGNOSIS: Alcohol abuse, alcohol withdrawal, dehydration, renal or liver failure, electrolyte imbalance, anemia, UTI, drug abuse, infection, among others EMERGENCY DEPARTMENT COURSE/PROCEDURES: ECG: Indication was tachycardia. The ECG shows a sinus tachycardia with a rate of 114. There is no ST elevation, no PVCs. The QTc is 449. Continuous Cardiac Monitoring: An order was placed for continuous cardiac monitoring. The monitor shows a rate of 127 with sinus tachycardia. Critical Care Note: I have personally spent 46 minutes of critical care time in the direct management of this patient. This includes bedside care, interpretation of diagnostic studies, and testing, discussion with consultants, patient, and family members, and other required patient management activities. This 46 minutes is in excess of all separately billable procedures. MEDICAL DECISION MAKING: There is no leukocytosis or concerning anemia. There is a normal platelet count. Sodium was slightly low at 132. CO2 was slightly low at 20. There was a mild anion gap at 19. No renal failure. Liver enzymes were slightly elevated likely consistent with her alcohol abuse/misuse. No evidence for pancreatitis. The patient appeared to be in a euthyroid state. testing returned negative. Urinalysis showed ketones, no infection. Aspirin and Tylenol levels were undetectable. Urine tox was negative. Alcohol level was high at 311. Covid testing returned negative. Chest x-ray did not show pneumonia or CHF. On exam, the patient was tachycardic and a bit shaky. She was cooperative. The patient was given IV saline, 500 cc. She was given IV saline with multivitamins, thiamine and folate. She received IV Ativan and oral Librium. She received IV Phenergan for nausea. The patient presents with some early alcohol withdrawal. She has a history of alcohol abuse. She has had DTs before when going through withdrawal. She was asking for help. The patient does seem to be feeling better since receiving the above medications. I did speak with the patient about a hospital stay, she is in agreement. I spoke with case management, the on-call hospitalist was consulted. 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 Huynh) Rosacea Ventricular tachycardia from alcohol withdrawl Surgical History H/O colonoscopy 05/01/2016 - perianal skin tag, normal colon H/O esophagogastroduodenoscopy 07/04/2009 - EUS exam- No choledocholithiasis, No masses appreciated in the entire pancreas. EGD exam- Normal examined duodenum. Bilious gastric fluid. Mild gastritis ? bilious etiology. Bx neg for H. pylori. Prominent fold just distal to GEJ. Bx- Squamocolumnar mucosa with mild carditis and hyperplastic changes. Negative for intestinal metaplasia and dysplasia. Medium sized hiatus hernia." On 03/10/17 15:26 Rita Taco wrote "07/04/2009- EUS exam- No choledocholithiasis, No masses appreciated in the entire pancreas. EGD exam- Normal examined duodenum. Bilious gastric fluid. Mild gastritis ? bilious etiology. This was biopsied to r/o H Pylori. Prominent fold just distal to GEJ. This was biopsied. Medium sized hiatus hernia." History of breast biopsy 11/30/2019 - Left Breast 02/08/2020 - Right Breast History of breast lump/mass excision 02/15/2020 - Right Breast History of dilation and curettage 2003 - s/p miscarriage History of lumpectomy of left breast 02/15/2020 History of lumpectomy of right breast 03/28/2020 History of mandibular surgery 1986 History of surgery 05/07/2016 - Anal Tag Removal S/P laparoscopic cholecystectomy 02/23/2004 Family History Mother Breast cancer, Onset Age: 76 Currently battling metastatic breast cancer Grandmother (Paternal) , Passed age 93 of stomach cancer No problems noted. Grandfather (Maternal) , Passed age 72 of colon cancer No problems noted. Father , Passed age 67 of complications from menigioma No problems noted. Aunt Breast cancer, Onset Age: 34 Alive and well Aunt Breast cancer, Onset Age: 62 alive and well Aunt Breast cancer, Onset Age: 62 Alive and well Brother Stroke Dementia Sister No problems noted. Son No problems noted. 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 Feels Safe at Home: Yes Safety Concerns: Feels Safe At This Time Childhood Exposure to Second-Hand Smoke: Yes (Mom ) caffeine: Yes (daily ) during the past year weight has: remained stable Dental Care, Regularly: Yes Assistive Devices: CPAP and Glasses Allergies Allergies Allergy/AdvReac Type Severity Reaction Status Date / Time levothyroxine Allergy Severe facial Unverified 03/01/22 18:48 swelling minocycline [From Minocin] Allergy Mild Rash Verified 03/01/22 18:48 Sulfa (Sulfonamide Allergy Unknown PT DOESN'T Verified 03/01/22 18:48 Antibiotics) REMEMBER REACTION Home Meds Home Medications Medication Instructions Recorded Confirmed amitriptyline 50 mg tablet 50 mg PO HS 12/13/19 03/01/22 omeprazole magnesium 20 mg 20 mg PO QAM 12/13/19 03/01/22 tablet,delayed release (Prilosec OTC) gabapentin 100 mg capsule 100 mg PO TID 04/10/20 03/01/22 tamoxifen 20 mg tablet 20 mg PO QAM 06/14/20 03/01/22 desvenlafaxine succinate 50 mg 100 mg PO QAM 02/17/22 03/01/22 tablet,extended release 24 hr (Pristiq) atorvastatin 20 mg tablet 20 mg PO HS 02/18/22 03/01/22 cetirizine 10 mg tablet (Zyrtec) 10 mg PO QAM 02/18/22 03/01/22 fluticasone propionate 50 1 spray INTRANASAL DAILY 02/18/22 03/01/22 mcg/actuation nasal spray,suspension naltrexone 50 mg tablet 100 mg PO BID 02/18/22 03/01/22 metoprolol succinate 25 mg 25 mg PO BID 03/01/22 03/01/22 tablet,extended release 24 hr montelukast 10 mg tablet 10 mg PO QPM 03/01/22 03/01/22 propranolol 20 mg tablet 20 mg PO BID 03/01/22 03/01/22 Results & Data (ED) Vital Signs Vital Signs - 24 hr 03/01/22 17:02 03/01/22 17:07 03/01/22 19:02 Temperature 36.2 C L 36.8 C Temperature Source Oral Oral Pulse Rate 127 H Pulse Rhythm Regular Pulse Strength Normal Respiratory Rate 20 18 22 Respiratory Effort / Characteristics Non-Labored Non-Labored Spontaneous Non-Labored Respiratory Depth Normal Normal Normal Respiratory Pattern Regular Regular Blood Pressure 133/86 Blood Pressure [Right Arm] 112/78 Blood Pressure Mean 101 Blood Pressure Mean [Right Arm] 89 Blood Pressure Position Sitting Blood Pressure Position [Right Arm] Lying Pulse Oximetry 98 100 98 Oxygen Delivery Method Room Air Room Air Room Air Sepsis Recent Fever Within 48 Hours No Sepsis New/Unexplained Change in Mental Status No Sepsis Action Taken by Nursing No Action Required 03/01/22 20:31 Temperature Temperature Source Pulse Rate Pulse Rhythm Pulse Strength Respiratory Rate 18 Respiratory Effort / Characteristics Non-Labored Respiratory Depth Normal Respiratory Pattern Blood Pressure Blood Pressure [Right Arm] 122/88 Blood Pressure Mean Blood Pressure Mean [Right Arm] 99 Blood Pressure Position Blood Pressure Position [Right Arm] Lying Pulse Oximetry 95 Oxygen Delivery Method Room Air Sepsis Recent Fever Within 48 Hours Sepsis New/Unexplained Change in Mental Status Sepsis Action Taken by [facility] Medications Current Medication List: was personally reviewed by me Laboratory Data Attestation: I reviewed the patient's lab results. Result diagrams: 03/01/22 17:30 03/01/22 17:30 Lab Results 03/01/22 03/01/22 03/01/22 Range/Units 17:30 17:30 17:30 WBC 10.49 (4.8-10.8) K/uL RBC 4.49 (4.2-5.4) M/uL Hgb 14.5 (12.0-16.0) g/dL Hct 39.6 (37-47) % MCV 88.2 (80-100) fL MCH 32.3 (25-34) pg MCHC 36.6 H (32-36) g/dL RDW Std Deviation 41.7 (36.4-46.3) fL RDW Coeff of Marybeth 13.1 (11.5-14.5) % Plt Count 205 (130-400) K/uL MPV 8.8 (7.4-10.4) fL Immature Gran % (Auto) 0.2 % Neut % (Auto) 74.0 % Lymph % (Auto) 13.6 % [place] % (Auto) 11.7 % Eos % (Auto) 0.4 % Baso % (Auto) 0.1 % Neut # (Auto) 7.76 H (1.4-6.5) K/uL Lymph # (Auto) 1.43 (1.2-3.4) K/uL [place] # (Auto) 1.23 H (0.11-0.59) K/uL Eos # (Auto) 0.04 (0-0.5) K/uL Baso # (Auto) 0.01 (0-0.2) K/uL Immature Gran # (Auto) 0.02 (0.00-0.02) K/uL PT (9.0-12.0) Seconds INR (0.9-1.1) Sodium 132 L (136-145) mmol/L Potassium 3.9 (3.5-5.1) mmol/L Chloride 93 L (98-107) mmol/L Carbon Dioxide 20 L (21-32) mmol/L Anion Gap 19 H (3-11) BUN 14 (6-23) mg/dl Creatinine 0.83 (0.6-1.2) mg/dl Est Cr Clr Drug Dosing 80.4 ml/min Est GFR ( Amer) 92.7 ml/min Est GFR (Non-Af Amer) 79.9 ml/min BUN/Creatinine Ratio 16.9 (10-20) Glucose 204 H (70-99(Fasting)) mg/dl Calcium 8.6 (8.5-10.1) mg/dl Phosphorus (2.5-4.9) mg/dl Magnesium 1.9 (1.7-2.4) mg/dl Total Bilirubin 0.7 (0.2-1.0) mg/dl AST 122 H (13-39) U/L ALT 72 H (7-52) U/L Alkaline Phosphatase 71 (34-104) U/L Ammonia (18-72) umol/L Total Protein 7.5 (6.0-8.3) gm/dl Albumin 4.4 (3.4-5.0) gm/dl Globulin 3.1 (2.5-4.0) gm/dl Albumin/Globulin Ratio 1.4 (0.9-2) Lipase 52 (11-82) U/L TSH (0.300-4.500) uIu/ml HCG, Qual Negative (Negative) Urine Color Urine Appearance (Clear) Urine pH (4.5-7.5) Ur Specific [place] (1.000-1.030) Urine Protein (Negative) Urine Glucose (UA) (Negative) Urine Ketones (Negative) Urine Blood (Negative) Urine Nitrite (Negative) Urine Bilirubin (Negative) Urine Urobilinogen (Negative) Ur Leukocyte Esterase (Negative) Urine WBC (Auto) (0-5) /hpf Urine RBC (Auto) (0-4) /hpf U Hyaline Cast (Auto) (0-5) /lpf U Epithel Cells (Auto) (0-5) /lpf Urine Bacteria (Auto) (Negative) Salicylates (3.0-30) mg/dl Urine Opiates Screen (Neg) Ur Methadone, Qual (Neg) Acetaminophen (10-30) ug/ml Urine Barbiturates (Neg) Ur Phencyclidine (PCP) (Neg) U Amphetamin/Meth Scrn (Neg) MDMA (Ecstasy) Screen (Neg) U Benzodiazepines Scrn (Neg) Ur Cocaine Metabolite (Neg) U Marijuana (THC) Screen (Neg) Ethyl Alcohol mg/dL (<10.0) mg/dl SARS-CoV-2, RNA, NAAT (NEGATIVE) 03/01/22 03/01/22 03/01/22 Range/Units 17:30 17:30 17:30 WBC (4.8-10.8) K/uL RBC (4.2-5.4) M/uL Hgb (12.0-16.0) g/dL Hct (37-47) % MCV (80-100) fL MCH (25-34) pg MCHC (32-36) g/dL RDW Std Deviation (36.4-46.3) fL RDW Coeff of Marybeth (11.5-14.5) % Plt Count (130-400) K/uL MPV (7.4-10.4) fL Immature Gran % (Auto) % Neut % (Auto) % Lymph % (Auto) % [place] % (Auto) % Eos % (Auto) % Baso % (Auto) % Neut # (Auto) (1.4-6.5) K/uL Lymph # (Auto) (1.2-3.4) K/uL [place] # (Auto) (0.11-0.59) K/uL Eos # (Auto) (0-0.5) K/uL Baso # (Auto) (0-0.2) K/uL Immature Gran # (Auto) (0.00-0.02) K/uL PT (9.0-12.0) Seconds INR (0.9-1.1) Sodium (136-145) mmol/L Potassium (3.5-5.1) mmol/L Chloride (98-107) mmol/L Carbon Dioxide (21-32) mmol/L Anion Gap (3-11) BUN (6-23) mg/dl Creatinine (0.6-1.2) mg/dl Est Cr Clr Drug Dosing ml/min Est GFR ( Amer) ml/min Est GFR (Non-Af Amer) ml/min BUN/Creatinine Ratio (10-20) Glucose (70-99(Fasting)) mg/dl Calcium (8.5-10.1) mg/dl Phosphorus (2.5-4.9) mg/dl Magnesium (1.7-2.4) mg/dl Total Bilirubin (0.2-1.0) mg/dl AST (13-39) U/L ALT (7-52) U/L Alkaline Phosphatase (34-104) U/L Ammonia (18-72) umol/L Total Protein (6.0-8.3) gm/dl Albumin (3.4-5.0) gm/dl Globulin (2.5-4.0) gm/dl Albumin/Globulin Ratio (0.9-2) Lipase (11-82) U/L TSH 3.304 (0.300-4.500) uIu/ml HCG, Qual (Negative) Urine Color Urine Appearance (Clear) Urine pH (4.5-7.5) Ur Specific [place] (1.000-1.030) Urine Protein (Negative) Urine Glucose (UA) (Negative) Urine Ketones (Negative) Urine Blood (Negative) Urine Nitrite (Negative) Urine Bilirubin (Negative) Urine Urobilinogen (Negative) Ur Leukocyte Esterase (Negative) Urine WBC (Auto) (0-5) /hpf Urine RBC (Auto) (0-4) /hpf U Hyaline Cast (Auto) (0-5) /lpf U Epithel Cells (Auto) (0-5) /lpf Urine Bacteria (Auto) (Negative) Salicylates < 3.0 L (3.0-30) mg/dl Urine Opiates Screen (Neg) Ur Methadone, Qual (Neg) Acetaminophen < 3 L (10-30) ug/ml Urine Barbiturates (Neg) Ur Phencyclidine (PCP) (Neg) U Amphetamin/Meth Scrn (Neg) MDMA (Ecstasy) Screen (Neg) U Benzodiazepines Scrn (Neg) Ur Cocaine Metabolite (Neg) U Marijuana (THC) Screen (Neg) Ethyl Alcohol mg/dL 311.8 H (<10.0) mg/dl SARS-CoV-2, RNA, NAAT (NEGATIVE) 03/01/22 03/01/22 03/01/22 Range/Units 17:30 17:30 18:29 WBC (4.8-10.8) K/uL RBC (4.2-5.4) M/uL Hgb (12.0-16.0) g/dL Hct (37-47) % MCV (80-100) fL MCH (25-34) pg MCHC (32-36) g/dL RDW Std Deviation (36.4-46.3) fL RDW Coeff of Marybeth (11.5-14.5) % Plt Count (130-400) K/uL MPV (7.4-10.4) fL Immature Gran % (Auto) % Neut % (Auto) % Lymph % (Auto) % [place] % (Auto) % Eos % (Auto) % Baso % (Auto) % Neut # (Auto) (1.4-6.5) K/uL Lymph # (Auto) (1.2-3.4) K/uL [place] # (Auto) (0.11-0.59) K/uL Eos # (Auto) (0-0.5) K/uL Baso # (Auto) (0-0.2) K/uL Immature Gran # (Auto) (0.00-0.02) K/uL PT 10.3 (9.0-12.0) Seconds INR 1.0 (0.9-1.1) Sodium (136-145) mmol/L Potassium (3.5-5.1) mmol/L Chloride (98-107) mmol/L Carbon Dioxide (21-32) mmol/L Anion Gap (3-11) BUN (6-23) mg/dl Creatinine (0.6-1.2) mg/dl Est Cr Clr Drug Dosing ml/min Est GFR ( Amer) ml/min Est GFR (Non-Af Amer) ml/min BUN/Creatinine Ratio (10-20) Glucose (70-99(Fasting)) mg/dl Calcium (8.5-10.1) mg/dl Phosphorus 2.0 L (2.5-4.9) mg/dl Magnesium Cancelled (1.7-2.4) mg/dl Total Bilirubin (0.2-1.0) mg/dl AST (13-39) U/L ALT (7-52) U/L Alkaline Phosphatase (34-104) U/L Ammonia 20.0 (18-72) umol/L Total Protein (6.0-8.3) gm/dl Albumin (3.4-5.0) gm/dl Globulin (2.5-4.0) gm/dl Albumin/Globulin Ratio (0.9-2) Lipase (11-82) U/L TSH (0.300-4.500) uIu/ml HCG, Qual (Negative) Urine Color Urine Appearance (Clear) Urine pH (4.5-7.5) Ur Specific [place] (1.000-1.030) Urine Protein (Negative) Urine Glucose (UA) (Negative) Urine Ketones (Negative) Urine Blood (Negative) Urine Nitrite (Negative) Urine Bilirubin (Negative) Urine Urobilinogen (Negative) Ur Leukocyte Esterase (Negative) Urine WBC (Auto) (0-5) /hpf Urine RBC (Auto) (0-4) /hpf U Hyaline Cast (Auto) (0-5) /lpf U Epithel Cells (Auto) (0-5) /lpf Urine Bacteria (Auto) (Negative) Salicylates (3.0-30) mg/dl Urine Opiates Screen (Neg) Ur Methadone, Qual (Neg) Acetaminophen (10-30) ug/ml Urine Barbiturates (Neg) Ur Phencyclidine (PCP) (Neg) U Amphetamin/Meth Scrn (Neg) MDMA (Ecstasy) Screen (Neg) U Benzodiazepines Scrn (Neg) Ur Cocaine Metabolite (Neg) U Marijuana (THC) Screen (Neg) Ethyl Alcohol mg/dL (<10.0) mg/dl SARS-CoV-2, RNA, NAAT (NEGATIVE) 03/01/22 03/01/22 03/01/22 Range/Units 19:00 19:00 19:00 WBC (4.8-10.8) K/uL RBC (4.2-5.4) M/uL Hgb (12.0-16.0) g/dL Hct (37-47) % MCV (80-100) fL MCH (25-34) pg MCHC (32-36) g/dL RDW Std Deviation (36.4-46.3) fL RDW Coeff of Marybeth (11.5-14.5) % Plt Count (130-400) K/uL MPV (7.4-10.4) fL Immature Gran % (Auto) % Neut % (Auto) % Lymph % (Auto) % [place] % (Auto) % Eos % (Auto) % Baso % (Auto) % Neut # (Auto) (1.4-6.5) K/uL Lymph # (Auto) (1.2-3.4) K/uL [place] # (Auto) (0.11-0.59) K/uL Eos # (Auto) (0-0.5) K/uL Baso # (Auto) (0-0.2) K/uL Immature Gran # (Auto) (0.00-0.02) K/uL PT (9.0-12.0) Seconds INR (0.9-1.1) Sodium (136-145) mmol/L Potassium (3.5-5.1) mmol/L Chloride (98-107) mmol/L Carbon Dioxide (21-32) mmol/L Anion Gap (3-11) BUN (6-23) mg/dl Creatinine (0.6-1.2) mg/dl Est Cr Clr Drug Dosing ml/min Est GFR ( Amer) ml/min Est GFR (Non-Af Amer) ml/min BUN/Creatinine Ratio (10-20) Glucose (70-99(Fasting)) mg/dl Calcium (8.5-10.1) mg/dl Phosphorus (2.5-4.9) mg/dl Magnesium (1.7-2.4) mg/dl Total Bilirubin (0.2-1.0) mg/dl AST (13-39) U/L ALT (7-52) U/L Alkaline Phosphatase (34-104) U/L Ammonia (18-72) umol/L Total Protein (6.0-8.3) gm/dl Albumin (3.4-5.0) gm/dl Globulin (2.5-4.0) gm/dl Albumin/Globulin Ratio (0.9-2) Lipase (11-82) U/L TSH (0.300-4.500) uIu/ml HCG, Qual (Negative) Urine Color Yellow Urine Appearance Clear (Clear) Urine pH 5.5 (4.5-7.5) Ur Specific [place] 1.019 (1.000-1.030) Urine Protein Trace H (Negative) Urine Glucose (UA) 2+ H (Negative) Urine Ketones 3+ H (Negative) Urine Blood Negative (Negative) Urine Nitrite Negative (Negative) Urine Bilirubin Negative (Negative) Urine Urobilinogen Negative (Negative) Ur Leukocyte Esterase Negative (Negative) Urine WBC (Auto) 1-5 (0-5) /hpf Urine RBC (Auto) 0-4 (0-4) /hpf U Hyaline Cast (Auto) 1-5 (0-5) /lpf U Epithel Cells (Auto) 10-20 H (0-5) /lpf Urine Bacteria (Auto) Negative (Negative) Salicylates (3.0-30) mg/dl Urine Opiates Screen Neg (Neg) Ur Methadone, Qual Neg (Neg) Acetaminophen (10-30) ug/ml Urine Barbiturates Neg (Neg) Ur Phencyclidine (PCP) Neg (Neg) U Amphetamin/Meth Scrn Neg (Neg) MDMA (Ecstasy) Screen Neg (Neg) U Benzodiazepines Scrn Neg (Neg) Ur Cocaine Metabolite Neg (Neg) U Marijuana (THC) Screen Neg (Neg) Ethyl Alcohol mg/dL (<10.0) mg/dl SARS-CoV-2, RNA, NAAT NEGATIVE (NEGATIVE) Administered Medications Amitriptyline HCl (Amitriptyline Hcl 50 Mg Tab) 50 mg PO HS CASSANDRA Stop: 03/31/22 21:46 Last Admin: 03/01/22 23:26 Dose: 50 mg Documented by: [id number] Atorvastatin Calcium (Atorvastatin 20 Mg Tab) 20 mg PO HS CASSANDRA Stop: 03/31/22 21:46 Last Admin: 03/01/22 23:25 Dose: 20 mg Documented by: [id number] Chlordiazepoxide HCl (Chlordiazepoxide Hcl 25 Mg Cap) 25 mg PO Q6H CASSANDRA; Taper Stop: 03/04/22 23:59 Last Admin: 03/02/22 00:56 Dose: 25 mg Documented by: [id number] Enoxaparin Sodium (Enoxaparin Inj 40 Mg/0.4 Ml Syr) 40 mg SQ Q24H CASSANDRA Stop: 03/31/22 21:46 Last Admin: 03/01/22 23:25 Dose: 40 mg Documented by: [id number] Folic Acid (Folic Acid 1 Mg Tab) 1 mg PO QAM CASSANDRA Stop: 03/31/22 21:46 Last Admin: 03/01/22 23:27 Dose: 1 mg Documented by: [id number] Sodium Phosphate 12 mmol/ (Sodium Chloride) 254 mls @ 63.5 mls/hr IV ONE ONE Stop: 03/02/22 01:44 Last Admin: 03/01/22 22:12 Dose: 63.5 mls/hr Documented by: [id number] Lactated Ringer's (Lr) 1,000 mls @ 110 mls/hr IV .Q9H6M ONE Stop: 03/02/22 06:52 Last Admin: 03/01/22 23:34 Dose: 110 mls/hr Documented by: [id number] Metoprolol Succinate (Metoprolol Succ 25mg Ext Rel Tab) 25 mg PO BID [facility] Stop: 03/31/22 21:46 Last Admin: 03/01/22 23:26 Dose: 25 mg Documented by: [id number] Miscellaneous (Pristiq~Order Awaiting Action) 1 ea N/A QS [facility] Stop: 03/31/22 22:59 Last Admin: 03/02/22 00:51 Dose: Not Given Documented by: [id number] Montelukast Sodium (Montelukast Sodium 10 Mg Tablet) 10 mg PO QPM CASSANDRA Stop: 03/31/22 21:46 Last Admin: 03/01/22 23:26 Dose: 10 mg Documented by: [id number] Nystatin (Nystatin Susp 500,000 U/5 Ml Udc) 5 ml PO QID CASSANDRA Stop: 03/11/22 21:46 Last Admin: 03/01/22 23:28 Dose: 5 ml Documented by: [id number] Discontinued Medications Adenosine (Adenosine Iv Soln 3 Mg/Ml 2 Ml Vial) 6 mg IV NOW STA Stop: 03/01/22 23:08 Last Admin: 03/01/22 23:13 Dose: 6 mg Documented by: [id number] Adenosine (Adenosine Iv Soln 3 Mg/Ml 2 Ml Vial) Confirm Administered Dose 6 mg IV .STK-MED ONE Stop: 03/01/22 23:13 Last Admin: 03/02/22 00:52 Dose: Not Given Documented by: [id number] Chlordiazepoxide HCl (Chlordiazepoxide Hcl 25 Mg Cap) 50 mg PO NOW ONE Stop: 03/01/22 19:09 Last Admin: 03/01/22 19:17 Dose: 50 mg Documented by: [id number] Chlordiazepoxide HCl (Chlordiazepoxide Alcohol Withdrawl 50mg) 1 ea PO NOW STA; Protocol Stop: 03/01/22 20:41 Last Admin: 03/01/22 22:24 Dose: Not Given Documented by: [id number] Diazepam (Diazepam 5 Mg/Ml Inj 10ml Vial) 2 mg IV NOW STA Stop: 03/01/22 20:37 Last Admin: 03/01/22 21:09 Dose: 2 mg Documented by: [id number] Diazepam (Diazepam 5 Mg/Ml Inj 10ml Vial) 3 mg IV NOW STA Stop: 03/01/22 23:18 Last Admin: 03/01/22 23:54 Dose: 3 mg Documented by: [id number] Sodium Chloride (Nss 1000ml) 500 mls @ 999 mls/hr IV .Q31M ONE Stop: 03/01/22 18:04 Last Infusion: 03/01/22 18:48 Dose: 0 mls/hr Documented by: [id number] Admin: 03/01/22 18:17 Dose: 999 mls/hr Documented by: [id number] Multivitamins 10 ml/ Thiamine HCl 100 mg/ Folic Acid 1 mg/Sodium Chloride 1,011.2 mls @ 1,011.2 mls/hr IV .Q1H ONE Stop: 03/01/22 18:33 Last Infusion: 03/01/22 20:17 Dose: 0 mls/hr Documented by: [id number] Admin: 03/01/22 19:16 Dose: 1,011.2 mls/hr Documented by: [id number] Promethazine HCl (Phenergan) 12.5 mg in 50.5 mls @ 202 mls/hr IV NOW STA Stop: 03/01/22 17:48 Last Infusion: 03/01/22 18:34 Dose: 0 mls/hr Documented by: [id number] Admin: 03/01/22 18:17 Dose: 202 mls/hr Documented by: [id number] Thiamine HCl 200 mg/ Sodium (Chloride) 52 mls @ 208 mls/hr IV NOW STA Stop: 03/01/22 20:39 Last Infusion: 03/01/22 21:24 Dose: 0 mls/hr Documented by: [id number] Admin: 03/01/22 21:09 Dose: 208 mls/hr Documented by: [id number] Famotidine (Pepcid 20mg Iv Push) 20 mg in 5 mls @ 2.5 mls/min IV NOW STA Stop: 03/01/22 21:16 Last Admin: 03/01/22 21:34 Dose: 2.5 mls/min Documented by: [id number] Lorazepam (Lorazepam 2 Mg/1 Ml Vial) 1 mg IV NOW STA Stop: 03/01/22 19:09 Last Admin: 03/01/22 19:24 Dose: 1 mg Documented by: [id number] Metoprolol Tartrate (Metoprolol Tartrate 1 Mg/Ml Vial) Confirm Administered Dose 5 mg IV .STK-MED ONE Stop: 03/01/22 23:06 Last Admin: 03/01/22 23:11 Dose: 5 mg Documented by: [id number] Metoprolol Tartrate (Metoprolol Tartrate 1 Mg/Ml Vial) 5 mg IV NOW STA; Protocol Stop: 03/01/22 23:06 Last Admin: 03/02/22 00:53 Dose: Not Given Documented by: [id number] Sodium Phosphate (Sodium Phosphate 3 Mmol/1 Ml Infusion) 12 mmol IV NOW STA Stop: 03/01/22 21:32 Last Admin: 03/01/22 22:24 Dose: Not Given Documented by: [id number] Imaging Data Radiologist's Impression: Chest X-Ray 03/01/22 17:36 XR chest 1V portable HISTORY: Aspiration. Assess for pneumonia. COMPARISON: Chest 05/28/2021. FINDINGS: The lungs are clear. Cardiac silhouette is normal in size. No pleural effusions. No pneumothorax. IMPRESSION: No acute process. ACT 112: Negative or not required by law. Electronically signed by: Abner Frost M.D. 03/01/2022 6:19 PM Discharge Plan Visit Data Chief Complaint: Detox Request Stated Complaint: ALCOHOL DETOX ED Provider: Satish Julien Discharge Problem: Alcohol withdrawal, Tachycardia, Alcohol intoxication, Alcohol abuse Patient Disposition: Admitted As Inpatient Condition: Fair Discharge Instructions Interventions: ED Discharge Assessment Last Done: 03/01/22 21:40
[2022-03-01 17:48] LABS: Basophils # (auto) 0.01 K/uL (0-0.2); Basophils % (auto) 0.1 %; Eosinophils # (auto) 0.04 K/uL (0-0.5); Eosinophils % (auto) 0.4 %; Hematocrit (blood only) 39.6 % (37-47); Hemoglobin 14.5 g/dL (12.0-16.0); Immature Granulocytes # (auto) 0.02 K/uL (0.00-0.02); Immature Granulocytes % (auto) 0.2 %; Lymphocytes # (auto) 1.43 K/uL (1.2-3.4); Lymphocytes % (auto) 13.6 %; Mean Corpuscular Hemoglobin 32.3 pg (25-34); Mean Corpuscular Hgb Conc 36.6 g/dL (32-36); Mean Corpuscular Volume 88.2 fL (80-100); Mean Platelet Volume 8.8 fL (7.4-10.4); Monocytes # (auto) 1.23 K/uL (0.11-0.59); Monocytes % (auto) 11.7 %; Neutrophils # (auto) 7.76 K/uL (1.4-6.5); Platelet Count 205 K/uL (130-400); RDW Coefficient of Variation 13.1 % (11.5-14.5); RDW Standard Deviation 41.7 fL (36.4-46.3); Red Blood Count 4.49 M/uL (4.2-5.4); White Blood Count 10.49 K/uL (4.8-10.8)
[2022-03-01 18:11] LABS: Acetaminophen < 3 ug/ml (10-30); Albumin Globulin Ratio 1.4 (0.9-2); Albumin Level 4.4 gm/dl (3.4-5.0); BUN Creatinine Ratio 16.9 (10-20); Bilirubin,Total 0.7 mg/dl (0.2-1.0); Calcium 8.6 mg/dl (8.5-10.1); Creatinine Clr Calc Pharmacy 80.4 ml/min; Est GFR (African American) 92.7 ml/min; Est GFR (Non-African American) 79.9 ml/min; Globulin 3.1 gm/dl (2.5-4.0); Magnesium 1.9 mg/dl (1.7-2.4); Potassium 3.9 mmol/L (3.5-5.1); Salicylate < 3.0 mg/dl (3.0-30); Total Protein 7.5 gm/dl (6.0-8.3)
[2022-03-01 18:12] LABS: Pregnancy Test, Serum Negative (Negative)
--- NOTE | 2022-03-01 18:21 | XRay Report ---
XR chest 1V portable HISTORY: Aspiration. Assess for pneumonia. COMPARISON: Chest 05/28/2021. FINDINGS: The lungs are clear. Cardiac silhouette is normal in size. No pleural effusions. No pneumot horax. IMPRESSION: No acute process. ACT 112: Negative or not required by law. Electronically signed by: Abner Frost M.D. 03/01/2022 6:19 PM
[2022-03-01] MEDS ORDERED: LORazepam 2 MG/1 ML VIAL IV STA (19:08)
[2022-03-01] MEDS ORDERED: chlordiazePOXIDE HCl 25 MG CAP PO ONE (19:08)
[2022-03-01 19:45] LABS: Appearance Urine Clear (Clear); Bacteria Urine Automated Negative (Negative); Bilirubin Urine Negative (Negative); Blood Urine Negative (Negative); Color Urine Yellow; Glucose Urine UA 2+ (Negative); Ketones Urine 3+ (Negative); Leukocyte Esterase Urine Negative (Negative); Nitrite Urine Negative (Negative); Protein Urine Trace (Negative); RBC Urine Automated 0-4 /hpf (0-4); Specific Gravity Urine 1.019 (1.000-1.030); Urobilinogen Urine Negative (Negative); pH Urine 5.5 (4.5-7.5)
[2022-03-01 19:59] LABS: Prothrombin Time 10.3 Seconds (9.0-12.0)
[2022-03-01] MEDS ORDERED: PHENobarbital sodium 65 MG/ML VIAL IV STA (20:02)
[2022-03-01 20:06] LABS: Amphetamines+Metham, Urine Neg (Neg); Barbiturates, Urine Neg (Neg); Benzodiazepine, Urine Neg (Neg); Cocaine, Urine Neg (Neg); MDMA (Ecstacy), Urine Neg (Neg); Methadone, Urine Neg (Neg); Opiate, Urine Neg (Neg); Phencyclidine, Urine Neg (Neg)
[2022-03-01] MEDS ORDERED: THIAMINE HCL 200 MG in SODIUM CHLORIDE 0.9% 50 ML IV STA (20:38)
[2022-03-01] MEDS ORDERED: chlordiazePOXIDE ALCOHOL WITHDRAWL 50MG PO STA (20:40)
--- NOTE | 2022-03-01 20:54 | History & Physical Report ---
Date of Service March 01, 2022 Assessment & Plan (1) Alcohol dependence: Plan: Alcohol abuse/dependance- patient voluntarily stopped her antabuse this week and resumed drinking - she comes in today wanting to quit - high risk for severe withdrawl - ETOH level 311 - LR @120ml/hr (2) Alcohol withdrawal: Plan: Patient currently with withdrawl symptoms of tachycardia, tremors - Continue with her Librium taper with AWSS protocol - Start Valium and then Valium 2mg IV q4 PRN with AWWS > 7- t0o prevent stacking and respiratory depression - Change to Ativan if she reaches steady state of calmness - Follow [facility] as ETOH clears - LFTs elevated - INR normal at 1.0 - Nystatin swish and swallow (3) Elevated transaminase level: Plan: Secondary to ETOH abuse ~ 2:1 ratio - Has had higher levels in the past - Trend mild icterus (4) Mood disorder: Plan: Continue with Elavil, Pristiq, - Follow with ETOH abuse- may be difficult to ascertain behavioral distrubances (5) Hypothyroidism: Plan: 3.3- not on medication (6) Ductal carcinoma in situ (DCIS) of left breast: Plan: S/P Chemo/radiation on maintenance Tamoxifen. History of Present Illness Primary Care Provider: Latoya Valerio 56 YOF with past medical history of: ETOH abuse, withdrawal, SVT, DCIS (2019) now on maintenance Tamoxifen, HLD, HTN, Mood disorder. Patient was previously sober for 7 months while on Antabuse. The patient voluntarily stopped this on Thursday this week and started to drink ETOH. She drinks 1-2 bottles of wine per day. She voluntarily came to the [facility] today, she had routine labs drawn to include urine tox screen as well as ETOH level. Her ETOH level is 311 and her last drink was ~ 1100 this am. She would like to stop drinking and does not think she can do this on her own. Patient has history of difficult withdraw with hallucinations and tachycardias, but does not recall seizures. She was given 1mg Ativan and 50mg of Librium PO by the [facility] and bananna bag with 100mg thiamine and 1mg of folic acid. Patient will be admitted to PCU for withdraw monitoring and treatment, will increase her Thiamine to 500mg IV TID with an additional Thiamine following her Banannag Bag, will load her with Valium and continue with Librium. Patient is alert oriented and cooperative at this time. She is accompanied by her friend. As she is only 2 years out from her DCIS breast cancer will not place on Phenobarbitol as this reacts with CYP3a Tamoxifen- which would reduce the effectiveness of the Tamoxifen. Allergies Allergy/AdvReac Type Severity Reaction Status Date / Time levothyroxine Allergy Severe facial Unverified 03/01/22 18:48 swelling minocycline [From Minocin] Allergy Mild Rash Verified 03/01/22 18:48 Sulfa (Sulfonamide Allergy Unknown PT DOESN'T Verified 03/01/22 18:48 Antibiotics) REMEMBER REACTION Home Medications Medication Instructions Recorded Confirmed Type amitriptyline 50 mg tablet 50 mg PO HS 12/13/19 03/01/22 History omeprazole magnesium 20 mg 20 mg PO QAM 12/13/19 03/01/22 History tablet,delayed release (Prilosec OTC) gabapentin 100 mg capsule 100 mg PO TID 04/10/20 03/01/22 History tamoxifen 20 mg tablet 20 mg PO QAM 06/14/20 03/01/22 History desvenlafaxine succinate 50 mg 100 mg PO QAM 02/17/22 03/01/22 History tablet,extended release 24 hr (Pristiq) atorvastatin 20 mg tablet 20 mg PO HS 02/18/22 03/01/22 History cetirizine 10 mg tablet (Zyrtec) 10 mg PO QAM 02/18/22 03/01/22 History fluticasone propionate 50 1 spray INTRANASAL DAILY 02/18/22 03/01/22 History mcg/actuation nasal spray,suspension naltrexone 50 mg tablet 100 mg PO BID 02/18/22 03/01/22 History metoprolol succinate 25 mg 25 mg PO BID 03/01/22 03/01/22 History tablet,extended release 24 hr montelukast 10 mg tablet 10 mg PO QPM 03/01/22 03/01/22 History propranolol 20 mg tablet 20 mg PO BID 03/01/22 03/01/22 History Past Med/Surg History Medical History (Updated 03/02/22 @ 01:57 by Aditi Rollins DO) Alcoholism Anxiety Asthma hx Breast hematoma after procedure Left breast after biopsy in 11/2019 Depression Depression 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 Huynh) Rosacea Ventricular tachycardia from alcohol withdrawl Surgical History H/O colonoscopy 05/01/2016 - perianal skin tag, normal colon H/O esophagogastroduodenoscopy 07/04/2009 - EUS exam- No choledocholithiasis, No masses appreciated in the entire pancreas. EGD exam- Normal examined duodenum. Bilious gastric fluid. Mild gastritis ? bilious etiology. Bx neg for H. pylori. Prominent fold just distal to GEJ. Bx- Squamocolumnar mucosa with mild carditis and hyperplastic changes. Negative for intestinal metaplasia and dysplasia. Medium sized hiatus hernia." On 03/10/17 15:26 Rita España wrote "07/04/2009- EUS exam- No choledocholithiasis, No masses appreciated in the entire pancreas. EGD exam- Normal examined duodenum. Bilious gastric fluid. Mild gastritis ? bilious etiology. This was biopsied to r/o H Pylori. Prominent fold just distal to GEJ. This was biopsied. Medium sized hiatus hernia." History of breast biopsy 11/30/2019 - Left Breast 02/08/2020 - Right Breast History of breast lump/mass excision 02/15/2020 - Right Breast History of dilation and curettage 2003 - s/p miscarriage History of lumpectomy of left breast 02/15/2020 History of lumpectomy of right breast 03/28/2020 History of mandibular surgery 1986 History of surgery 05/07/2016 - Anal Tag Removal S/P laparoscopic cholecystectomy 02/23/2004 Family History Mother Breast cancer, Onset Age: 76 Currently battling metastatic breast cancer Grandmother (Paternal) , Passed age 93 of stomach cancer No problems noted. Grandfather (Maternal) , Passed age 72 of colon cancer No problems noted. Father , Passed age 67 of complications from menigioma No problems noted. Aunt Breast cancer, Onset Age: 34 Alive and well Aunt Breast cancer, Onset Age: 62 alive and well Aunt Breast cancer, Onset Age: 62 Alive and well Brother Stroke Dementia Sister No problems noted. Son No problems noted. Other Family history non-contributory Social History Smoking Status: Never smoker Second Hand Exposure: No; Hx Alcohol Use: Yes Alcohol type: wine Alcohol Intake Frequency: 4 or More x per/Week Alcohol Intake Frequency Comment: 3 bottles of wine daily for past 30 days Hx Substance Use: No Preferred Language: Hebrew Communication Ability: Effective Visual Impairment: Limited Hearing Ability: Normal Pediatrics Physician Required: No Beliefs That Will Affect Care: None marital status: Current Living Situation: Alone Current Living Situation Comment: adult son lives w/ her current occupational status: 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 Feels Safe at Home: Yes Safety Concerns: Feels Safe At This Time Childhood Exposure to Second-Hand Smoke: Yes (Mom ) caffeine: Yes (daily ) during the past year weight has: remained stable Dental Care, Regularly: Yes Assistive Devices: CPAP and Glasses Review of Systems Review of Systems: REVIEW OF SYSTEMS: Constitutional: No fever, sweats or chills Eyes: No diplopia, no worsening or blurred vision ENT: normal hearing, no trouble swallowing Respiratory: No cough, sputum, dyspnea at rest or on exertion Cardiovascular: No chest pain, tightness or palpitations Abdomen: No pain, nausea, vomiting, diarrhea or constipation Musculoskeletal: No joint pain, calf pain, swelling Neurologic: (+) shaking/tremors, No weakness, numbness/tingling, or balance problems Psychiatric: (+) mood disorder, Skin: No rash or itch Physical Exam Physical Exam: PHYSICAL EXAM: General: awake, alert, unsteady on feet Head: Normocephalic, atraumatic ENT: PERRL, EOMI, no pharyngeal exudate, mucous membranes moist Neuro: AAO x 3, speech clear and appropriate, strength intact bilaterally 5/5, sensation intact and equal all extremities and dermatomes, no pronator drift, visually tremulous, unsteady with gait Chest: equal rise and fall of the chest, no accessory muscle use, no heaves or thrills, Clear to auscultation, on room air, Cardiac: Regular rate and rhythm, telemetry reviewed- tachycardic, skin warm dry, cap refill <3 seconds, peripheral pulses +2 no JVD, no murmur, no edema GI: NABS x 4 quadrants, soft, nontender to palpation, no rebound, guarding or tenderness : Spontaneously voiding, no pain, no CVA tenderness, Extremities: Normal inspection, no peripheral edema or erythema, calfs nontender to palpation Psych: Normal mood and affect- teary eyed Skin: no rash or erythema Results & Data Results & Data ([facility]) Vital Signs (Past 12 Hours) Vital Signs Temp Pulse Resp BP BP Pulse Ox 03/01/22 20:31 18 122/88 95 03/01/22 19:02 36.8 C 22 112/78 98 03/01/22 17:07 36.2 C L 127 H 18 133/86 100 03/01/22 17:02 20 98 Laboratory Results Abnormal lab results 03/01/22 03/01/22 03/01/22 Range/Units 17:30 17:30 17:30 MCHC 36.6 H (32-36) g/dL Neut # (Auto) 7.76 H (1.4-6.5) K/uL [place] # (Auto) 1.23 H (0.11-0.59) K/uL Sodium 132 L (136-145) mmol/L Chloride 93 L (98-107) mmol/L Carbon Dioxide 20 L (21-32) mmol/L Anion Gap 19 H (3-11) Glucose 204 H (70-99(Fasting)) mg/dl Phosphorus (2.5-4.9) mg/dl AST 122 H (13-39) U/L ALT 72 H (7-52) U/L Urine Protein (Negative) Urine Glucose (UA) (Negative) Urine Ketones (Negative) U Epithel Cells (Auto) (0-5) /lpf Salicylates < 3.0 L (3.0-30) mg/dl Acetaminophen < 3 L (10-30) ug/ml Ethyl Alcohol mg/dL (<10.0) mg/dl 04/08/1403/01/22 03/01/22 Range/Units 17:30 17:30 19:00 MCHC (32-36) g/dL Neut # (Auto) (1.4-6.5) K/uL [place] # (Auto) (0.11-0.59) K/uL Sodium (136-145) mmol/L Chloride (98-107) mmol/L Carbon Dioxide (21-32) mmol/L Anion Gap (3-11) Glucose (70-99(Fasting)) mg/dl Phosphorus 2.0 L (2.5-4.9) mg/dl AST (13-39) U/L ALT (7-52) U/L Urine Protein Trace H (Negative) Urine Glucose (UA) 2+ H (Negative) Urine Ketones 3+ H (Negative) U Epithel Cells (Auto) 10-20 H (0-5) /lpf Salicylates (3.0-30) mg/dl Acetaminophen (10-30) ug/ml Ethyl Alcohol mg/dL 311.8 H (<10.0) mg/dl Diagnostic Findings Chest X-Ray 03/01/22 17:36 XR chest 1V portable HISTORY: Aspiration. Assess for pneumonia. COMPARISON: Chest 05/28/2021. FINDINGS: The lungs are clear. Cardiac silhouette is normal in size. No pleural effusions. No pneumothorax. IMPRESSION: No acute process. ACT 112: Negative or not required by law. Electronically signed by: Abner Frost M.D. 03/01/2022 6:19 PM Medications Administered Discontinued Medications Chlordiazepoxide HCl (Chlordiazepoxide Hcl 25 Mg Cap) 50 mg PO NOW ONE Stop: 03/01/22 19:09 Last Admin: 03/01/22 19:17 Dose: 50 mg Documented by: [id number] Sodium Chloride (Nss 1000ml) 500 mls @ 999 mls/hr IV .Q31M ONE Stop: 03/01/22 18:04 Last Infusion: 03/01/22 18:48 Dose: 0 mls/hr Documented by: [id number] Admin: 03/01/22 18:17 Dose: 999 mls/hr Documented by: [id number] Multivitamins 10 ml/ Thiamine HCl 100 mg/ Folic Acid 1 mg/Sodium Chloride 1,011.2 mls @ 1,011.2 mls/hr IV .Q1H ONE Stop: 03/01/22 18:33 Last Infusion: 03/01/22 20:17 Dose: 0 mls/hr Documented by: [id number] Admin: 03/01/22 19:16 Dose: 1,011.2 mls/hr Documented by: [id number] Promethazine HCl (Phenergan) 12.5 mg in 50.5 mls @ 202 mls/hr IV NOW STA Stop: 03/01/22 17:48 Last Infusion: 03/01/22 18:34 Dose: 0 mls/hr Documented by: [id number] Admin: 03/01/22 18:17 Dose: 202 mls/hr Documented by: [id number] Lorazepam (Lorazepam 2 Mg/1 Ml Vial) 1 mg IV NOW STA Stop: 03/01/22 19:09 Last Admin: 03/01/22 19:24 Dose: 1 mg Documented by: [id number] ECG Additional Comments: Sinus tachycardia Otherwise normal ECG When compared with ECG of 01-JUN-2021 08:19, No significant change was found Code Status & VTE Plan Code Status CODE: FULL VTE: SCDS, Lovenox 40mg Daily sq VTE Prophylaxis Plan VTE Prophylaxis will be ordered: Yes Supervising Physician Co-Signing Physician Notes Patient seen and examined, chart reviewed, case discussed with TOMER Miles and I agree with his assessment and plan as documented above. In brief, patient is a 56-year-old female with history of alcohol abuse, has been in inpatient rehab several times in the past, is an active member of Alcoholics Anonymous and attends meetings regularly. She was previously sober x7 months but recently relapsed over the last 2 weeks. Reports drinking 3-4 bottles of wine daily. Last drink was immediately prior to arrival to the ER today. Has history of complicated withdrawal with hallucinations. No known history of seizures. She presents today with alcohol level of 311, tremulous and restless. Requesting detox. On physical exam patient is awake alert and oriented x4. She is tearful. Tremulous and restless. Skinwarm, dry, intact, no rash HEENTnormocephalic/atraumatic, pupils equal and reacting, slightly dry mucous membranes with poor oral care Heart+ S1, S2, regular, tachycardic, no murmur/rub/gallops Lungsclear to auscultation bilaterally, no rales/rhonchi/wheezes Abdomenpositive bowel sounds, soft, nontender, nondistended Extremitieswarm, well-perfused Labs and images reviewed. Significant for mild hyponatremia with sodium = 132, chloride = 93, CO2 = 20, anion gap = 19, glucose = 204, phosphorus low at 2, AST and ALT mildly elevated into the 1 pattern Assessment/plan: 56-year-old female with history of alcohol abuse presenting with withdrawal symptoms, requesting detox Upon patient's arrival to the floor I was notified that she was in SVT with rate of the low 200s. Blood pressure stable, experiencing only palpitations. No chest pain/shortness of breath. I went to the bedside, patient alert and nontoxic, blood pressure stable. Carotid massage/Valsalva attempted with no improvement in heart rate. Patient due for her beta-vicky, gave 5 mg of IV metoprolol with no improvement. Gave adenosine 6 mg IV with return to sinus tachycardia of 105 bpm. Patient had a second run of SVT which broke with coughing. -Patient at risk for complicated withdrawal given history, given withdrawal symptoms with alcohol level of 311. She has been given IV Valium as well as Ativan and started on Librium. Continue per protocol with low threshold for transfer to MICU Telemetry monitoring, continue beta-vicky, adenosine as needed Remainder of plan as above PG Care Time/CCT Total # of Minutes Spent Total Time Spent with Patient: Total time spent is greater than 50% in coordination of care (as documented) at patient's floor/unit and/or counseling patient: Coding Level of Care Code 31900 Initial Inpt Care Lvl 3 Diagnoses Alcohol dependence F10.239 Complication of substance-induced condition: with unspecified complication Substance use status: in withdrawal Alcohol withdrawal F10.239 Complication of substance-induced condition: with unspecified complication Elevated transaminase level R74.01 Mood disorder F39 Hypothyroidism E03.9 Ductal carcinoma in situ (DCIS) of left breast D05.12 (1) Alcohol dependence Complication of substance-induced condition: with unspecified complication Substance use status: in withdrawal Qualified Code(s): F10.239 - Alcohol dependence with withdrawal, unspecified (2) Alcohol withdrawal Complication of substance-induced condition: with unspecified complication Qualified Code(s): F10.239 - Alcohol dependence with withdrawal, unspecified
[2022-03-01] MEDS ORDERED: FAMOTIDINE 20MG IV PUSH 20 MG/5 ML SYR IV STA (21:15)
[2022-03-01] MEDS ORDERED: SODIUM PHOSPHATE 3 MMOL/1 ML INFUSION IV STA (21:31)
[2022-03-01] MEDS ORDERED: SODIUM PHOSPHATE 12 MMOL in SODIUM CHLORIDE 0.9% 250 ML IV ONE (21:45)
[2022-03-01] MEDS ORDERED: POLYETHYLENE (MIRALAX) 17 GM PACK PO PRN (21:47)
[2022-03-01] MEDS ORDERED: LACTATED RINGER'S 1,000 ML IV ONE (21:47)
[2022-03-01] MEDS ORDERED: ONDANSETRON INJ 2 MG/ML 2 ML VIAL IV PRN (21:47)
[2022-03-01] MEDS ORDERED: chlordiazePOXIDE HCl 25 MG CAP PO SCH (22:00)
[2022-03-01] MEDS ORDERED: METOPROLOL TARTRATE 1 MG/ML VIAL IV STA (23:05)
[2022-03-01] MEDS ORDERED: METOPROLOL TARTRATE 1 MG/ML VIAL IV ONE (23:05)
[2022-03-01] MEDS ORDERED: ADENOSINE IV SOLN 3 MG/ML 2 ML VIAL IV STA (23:07)
[2022-03-01] MEDS ORDERED: ADENOSINE IV SOLN 3 MG/ML 2 ML VIAL IV ONE (23:12)
[2022-03-01] MEDS: ATORVASTATIN 20 MG TAB PO SCH (23:25)
[2022-03-01] MEDS: ENOXAPARIN INJ 40 MG/0.4 ML SYR SQ SCH (23:25)
[2022-03-01] MEDS: METOPROLOL SUCC 25MG EXT REL TAB PO SCH (23:26)
[2022-03-01] MEDS: MONTELUKAST SODIUM 10 MG TABLET PO SCH (23:26)
[2022-03-01] MEDS: AMITRIPTYLINE HCL 50 MG TAB PO SCH (23:26)
[2022-03-01] MEDS: FOLIC ACID 1 MG TAB PO SCH (23:27)
[2022-03-01] MEDS: NYSTATIN SUSP 500,000 U/5 ML UDC PO SCH (23:28)
[2022-03-02] MEDS ORDERED: chlordiazePOXIDE HCl 25 MG CAP PO SCH
[2022-03-02] MEDS: chlordiazePOXIDE HCl 25 MG CAP PO SCH ×5 (00:56→23:20)
[2022-03-02 06:40] LABS: Basophils # (auto) 0.02 K/uL (0-0.2); Basophils % (auto) 0.4 %; Eosinophils # (auto) 0.04 K/uL (0-0.5); Eosinophils % (auto) 0.7 %; Hematocrit (blood only) 32.7 % (37-47); Hemoglobin 11.6 g/dL (12.0-16.0); Immature Granulocytes # (auto) 0.01 K/uL (0.00-0.02); Immature Granulocytes % (auto) 0.2 %; Lymphocytes # (auto) 1.05 K/uL (1.2-3.4); Lymphocytes % (auto) 18.6 %; Mean Corpuscular Hemoglobin 31.4 pg (25-34); Mean Corpuscular Hgb Conc 35.5 g/dL (32-36); Mean Corpuscular Volume 88.6 fL (80-100); Mean Platelet Volume 9.5 fL (7.4-10.4); Monocytes # (auto) 0.67 K/uL (0.11-0.59); Monocytes % (auto) 11.9 %; Neutrophils # (auto) 3.86 K/uL (1.4-6.5); Neutrophils % (auto) 68.2 %; Platelet Count 146 K/uL (130-400); RDW Coefficient of Variation 13.2 % (11.5-14.5); RDW Standard Deviation 42.2 fL (36.4-46.3); Red Blood Count 3.69 M/uL (4.2-5.4); White Blood Count 5.65 K/uL (4.8-10.8)
[2022-03-02 07:00] LABS: BUN Creatinine Ratio 16.7 (10-20); Calcium 7.8 mg/dl (8.5-10.1); Chol HDL Ratio 2.6 (0-5); Creatinine Clr Calc Pharmacy 100.7 ml/min; Est GFR (Non-African American) 94.9 ml/min; Magnesium 1.5 mg/dl (1.7-2.4); Potassium 3.2 mmol/L (3.5-5.1)
[2022-03-02] MEDS ORDERED: ADENOSINE IV SOLN 3 MG/ML 2 ML VIAL IV ONE ×6 (07:51→17:28)
[2022-03-02] MEDS: CETIRIZINE HCL 10 MG TABLET PO SCH (08:31)
[2022-03-02] MEDS: FLUTICASONE PROPIONATE NA SPR 16 GM BTL NAE SCH (08:31)
[2022-03-02] MEDS: NYSTATIN SUSP 500,000 U/5 ML UDC PO SCH ×4 (08:32→20:18)
[2022-03-02] MEDS: METOPROLOL SUCC 25MG EXT REL TAB PO SCH ×2 (08:32→20:18)
[2022-03-02] MEDS: PANTOprazole 40 MG TAB PO SCH (08:32)
[2022-03-02] MEDS: FOLIC ACID 1 MG TAB PO SCH (08:32)
[2022-03-02] MEDS ORDERED: AMIODARONE 150MG / 100ML D5W IV ONE (09:07)
[2022-03-02] MEDS ORDERED: AMIODARONE 360MG / 200ML D5W IV ONE (09:07)
[2022-03-02] MEDS ORDERED: AMIODARONE / D5W 150 MG/100 ML BAG IV STA (09:09)
[2022-03-02] MEDS ORDERED: 0.2 MICRON FILTER SET 1 EA IV ONE (09:09)
[2022-03-02] MEDS ORDERED: STAT IV Infusion **Titration per Protocol STA (09:09)
[2022-03-02] MEDS ORDERED: AMIODARONE IV BOLUS & DRIP IV STA (09:09)
[2022-03-02] MEDS ORDERED: AMIODARONE / D5W 360 MG/200 ML BAG IV ONE (09:20)
[2022-03-02] MEDS: POTASSIUM CHLORIDE / WTR 10 MEQ/100 ML PLCT IV SCH ×4 (09:41→14:01)
[2022-03-02] MEDS: MAGNESIUM SULFATE / D5W 1 GM/100 ML BAG IV SCH ×2 (09:41→11:41)
--- NOTE | 2022-03-02 10:24 | Cardiology Consultation ---
Date of Consultation March 02, 2022 Assessment & Plan (1) Alcohol withdrawal: (2) Supraventricular tachycardia: (3) Abnormal TSH: (4) Dehydration: (5) Elevated transaminase level: (6) Elevated glucose level: (7) Mood disorder: (8) Ventricular tachycardia: Ms. Perla does carry a history of SVT and possible VT during acute alcohol withdrawal. Nursing reports that she had a sustained episode this a.m. and was started on amiodarone after 2 doses of adenosine. I do not believe this is the optimal medication given her current clinical context of acute alcohol withdrawal and significant electrolyte abnormalities. Patient is already on Elavil, a QT prolonging agent. Amiodarone will be discontinued now. We will start diltiazem 30 mg p.o. 3 times daily instead. Continue metoprolol. Should any recurrent episodes of SVT occur then diltiazem can be changed to IV if adenosine fails again Obviously, should ventricular tachycardia develop, which it has not this admission, then amiodarone would be preferable We will defer treatment of alcohol withdrawal to the primary team Patient will require close monitoring of electrolytes and repletion to maintain potassium between 4 and 5 and magnesium greater than 2 History of Present Illness Reason for Consultation: SVT Requesting Physician: LULU Attending Physician: Skip Curry MD History of Present Illness Ms. Perla is a very pleasant 56-year-old woman who presented to [facility] requesting help with alcohol detoxification. She is followed with me in the past and states that she has been sober for several months, however, she started drinking again last week. She has been drinking 1-2 bottles of wine a day. She states that she has been compliant with her metoprolol as an outpatient. Past medical history: 1. Alcoholism 2. Episode of sustained ventricular tachycardia during alcohol withdrawal in the setting of hypokalemia, resolved with beta blockade and electrolyte correction 3. Hypertension 4. Transaminitis 5. Sleep apnea 6. Migraines 7. Dyslipidemia statin currently on hold due to transaminitis 8. 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 SVT Allergies Allergy/AdvReac Type Severity Reaction Status Date / Time levothyroxine Allergy Severe facial Unverified 03/01/22 18:48 swelling minocycline [From Minocin] Allergy Mild Rash Verified 03/01/22 18:48 Sulfa (Sulfonamide Allergy Unknown PT DOESN'T Verified 03/01/22 18:48 Antibiotics) REMEMBER REACTION Home Medications Medication Instructions Recorded Confirmed Type amitriptyline 50 mg tablet 50 mg PO HS 12/13/19 03/01/22 History omeprazole magnesium 20 mg 20 mg PO QAM 12/13/19 03/01/22 History tablet,delayed release (Prilosec OTC) gabapentin 100 mg capsule 100 mg PO TID 04/10/20 03/01/22 History tamoxifen 20 mg tablet 20 mg PO QAM 06/14/20 03/01/22 History desvenlafaxine succinate 50 mg 100 mg PO QAM 02/17/22 03/01/22 History tablet,extended release 24 hr (Pristiq) atorvastatin 20 mg tablet 20 mg PO HS 02/18/22 03/01/22 History cetirizine 10 mg tablet (Zyrtec) 10 mg PO QAM 02/18/22 03/01/22 History fluticasone propionate 50 1 spray INTRANASAL DAILY 02/18/22 03/01/22 History mcg/actuation nasal spray,suspension naltrexone 50 mg tablet 100 mg PO BID 02/18/22 03/01/22 History metoprolol succinate 25 mg 25 mg PO BID 03/01/22 03/01/22 History tablet,extended release 24 hr montelukast 10 mg tablet 10 mg PO QPM 03/01/22 03/01/22 History propranolol 20 mg tablet 20 mg PO BID 03/01/22 03/01/22 History Patient History Medical History Alcoholism Anxiety Asthma hx Breast hematoma after procedure Left breast after biopsy in 11/2019 Depression Depression 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 Huynh) Rosacea Ventricular tachycardia from alcohol withdrawl Surgical History H/O colonoscopy 05/01/2016 - perianal skin tag, normal colon H/O esophagogastroduodenoscopy 07/04/2009 - EUS exam- No choledocholithiasis, No masses appreciated in the entire pancreas. EGD exam- Normal examined duodenum. Bilious gastric fluid. Mild gastritis ? bilious etiology. Bx neg for H. pylori. Prominent fold just distal to GEJ. Bx- Squamocolumnar mucosa with mild carditis and hyperplastic changes. Negative for intestinal metaplasia and dysplasia. Medium sized hiatus hernia." On 03/10/17 15:26 Rita Taco wrote "07/04/2009- EUS exam- No choledocholithiasis, No masses appreciated in the entire pancreas. EGD exam- Normal examined duodenum. Bilious gastric fluid. Mild gastritis ? bilious etiology. This was biopsied to r/o H Pylori. Prominent fold just distal to GEJ. This was biopsied. Medium sized hiatus hernia." History of breast biopsy 11/30/2019 - Left Breast 02/08/2020 - Right Breast History of breast lump/mass excision 02/15/2020 - Right Breast History of dilation and curettage 2003 - s/p miscarriage History of lumpectomy of left breast 02/15/2020 History of lumpectomy of right breast 03/28/2020 History of mandibular surgery 1986 History of surgery 05/07/2016 - Anal Tag Removal S/P laparoscopic cholecystectomy 02/23/2004 Family History Mother Breast cancer, Onset Age: 76 Currently battling metastatic breast cancer Grandmother (Paternal) , Passed age 93 of stomach cancer No problems noted. Grandfather (Maternal) , Passed age 72 of colon cancer No problems noted. Father , Passed age 67 of complications from menigioma No problems noted. Aunt Breast cancer, Onset Age: 34 Alive and well Aunt Breast cancer, Onset Age: 62 alive and well Aunt Breast cancer, Onset Age: 62 Alive and well Brother Stroke Dementia Sister No problems noted. Son No problems noted. Other Family history non-contributory Social History Smoking Status: Never smoker Second Hand Exposure: No; Hx Alcohol Use: Yes Alcohol type: wine Alcohol Intake Frequency: 4 or More x per/Week Alcohol Intake Frequency Comment: 3 bottles of wine daily for past 30 days Hx Substance Use: No Preferred Language: Lithuanian Communication Ability: Effective Visual Impairment: Limited Hearing Ability: Normal Production Technologist Required: No Beliefs That Will Affect Care: None marital status: Current Living Situation: Alone Current Living Situation Comment: adult son lives w/ her current occupational status: 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 Moderately anxious during examination HEENT: Normocephalic, atraumatic. Pupils equal, round and reactive to light and accommodation. Extraocular muscles are intact. Anicteric sclera. Moist mucous membranes. Neck: No JVD. No bruit. Cardiovascular: Regular but tachycardic. No S-4. Normal S-1 and S-2. No S-3. No murmurs, rubs or gallops. Pulmonary: Clear to auscultation bilaterally. No rales, rhonchi, or wheezing. Abdomen: Bowel sounds x 4, soft. No rebound, guarding or tenderness. No organ omegaly. Extremities: No clubbing, cyanosis or edema. +2 pedal pulses bilaterally. Skin: Warm and dry. Results & Data ([facility]) Vital Signs (Past 12 Hours) Vital Signs Temp Pulse Pulse Resp BP BP Pulse Ox 03/02/22 07:23 37.1 C 82 18 112/68 94 03/02/22 05:02 37 C 83 16 107/67 95 03/02/22 04:00 36.6 C 103 H 18 105/63 96 03/02/22 02:20 36.4 C L 112 H 18 106/64 96 03/01/22 23:40 37.3 C 103 H 18 112/54 L 99 03/01/22 23:11 197 H 135/81 (1) Alcohol withdrawal Complication of substance-induced condition: uncomplicated Qualified Code(s): F10.230 - Alcohol dependence with withdrawal, uncomplicated
[2022-03-02] MEDS: THIAMINE HCL 500 MG in SODIUM CHLORIDE 0.9% 50 ML IV SCH ×2 (10:50→17:36)
--- NOTE | 2022-03-02 10:56 | Electrocardiogram Report ---
Test Reason : Blood Pressure : / mmHG Vent. Rate : 114 BPM Atrial Rate : 114 BPM P-R Int : 132 ms QRS Dur : 084 ms QT Int : 326 ms P-R-T Axes : 030 000 046 degrees QTc Int : 449 ms Sinus tachycardia Otherwise normal ECG When compared with ECG of 01-JUN-2021 08:19, No significant change was found Confirmed by Russ Hodges ([id number]) on 03/02/2022 10:55:28 AM Referred By: REFERRED SELF Confirmed By:Russ Hdoges
--- NOTE | 2022-03-02 11:28 | Electrocardiogram Report ---
Test Reason : Blood Pressure : / mmHG Vent. Rate : 179 BPM Atrial Rate : 178 BPM P-R Int : 000 ms QRS Dur : 076 ms QT Int : 176 ms P-R-T Axes : 000 019 252 degrees QTc Int : 303 ms Supraventricular tachycardia Marked T wave abnormality consider anterolateral ischemia Abnormal ECG When compared with ECG of 01-MAR-2022 18:13, (unconfirmed) Vent. rate has increased BY [address] now depressed in Inferior leads ST more depressed Anterolateral leads Confirmed by Russ Hodges ([id number]) on 03/02/2022 11:28:21 AM Referred By: REFERRED SELF Confirmed By:Russ Hodges
--- NOTE | 2022-03-02 11:29 | Electrocardiogram Report ---
Test Reason : Blood Pressure : / mmHG Vent. Rate : 094 BPM Atrial Rate : 094 BPM P-R Int : 170 ms QRS Dur : 084 ms QT Int : 360 ms P-R-T Axes : 059 029 045 degrees QTc Int : 450 ms Poor data quality, interpretation may be adversely affected Normal sinus rhythm Nonspecific ST abnormality Abnormal ECG When compared with ECG of 02-MAR-2022 07:53, (unconfirmed) Vent. rate has decreased BY [address] no longer depressed in Inferior leads ST less depressed in Anterolateral leads Nonspecific T wave abnormality, improved in Inferior leads Confirmed by Russ Hodges ([id number]) on 03/02/2022 11:29:08 AM Referred By: REFERRED SELF Confirmed By:Russ Hodges
[2022-03-02] MEDS ORDERED: PANTOprazole 40 MG TAB PO SCH (12:00)
--- NOTE | 2022-03-02 13:57 | Psychiatric Consultation ---
Date of Consultation March 02, 2022 Impression / Recommendations Impression 56 yo female hospitalized for EToh detox, on combo of TCA and Pristiq (non- formulary) per [facility]. (1) Alcohol withdrawal: Complication of substance-induced condition: uncomplicated Qualified Code(s): F10.230 - Alcohol dependence with withdrawal, uncomplicated (2) Anxiety: management of withdrawal and any rehab placement (if agreeable) per hospitalist service/case management would recommend 75 mg Effexor XR now and 150 mg in am as replacement for Pristiq while inpatient, hospitalist notified. liaison to follow for PHQ-9, ongoing screening Psych History Identifying Data 56 yo female with extensvie EToh use disorder hx with complicated withdrawal, known to me on previous consultation 06/12 for same. Consult by hospitalist service for depression and anxiety. Chief Complaint "I'm feeling OK, a little slow, yes I'd like something in place of Effexor XR." History of Present Illness Patient with a hx of multiple rehab stays, typically followed on an outpatient basis by Lea Jason at [facility]. Typically presents for detox and then declines additional services as symptoms improve. Confirmed she is still taking Pristiq and is aware of discontinuation syndrome when stopped abruptly as non-formulary, etc. past med trials: Prozac 2. Effexor 3. Pristiq 4. Naltrexone 5. Elavil 6. Gabapentin Allergies Allergy/AdvReac Type Severity Reaction Status Date / Time levothyroxine Allergy Severe facial Unverified 03/01/22 18:48 swelling minocycline [From Minocin] Allergy Mild Rash Verified 03/01/22 18:48 Sulfa (Sulfonamide Allergy Unknown PT DOESN'T Verified 03/01/22 18:48 Antibiotics) REMEMBER REACTION Home Medications Medication Instructions Recorded Confirmed Type amitriptyline 50 mg tablet 50 mg PO HS 12/13/19 03/01/22 History omeprazole magnesium 20 mg 20 mg PO QAM 12/13/19 03/01/22 History tablet,delayed release (Prilosec OTC) gabapentin 100 mg capsule 100 mg PO TID 04/10/20 03/01/22 History tamoxifen 20 mg tablet 20 mg PO QAM 06/14/20 03/01/22 History desvenlafaxine succinate 50 mg 100 mg PO QAM 02/17/22 03/01/22 History tablet,extended release 24 hr (Pristiq) atorvastatin 20 mg tablet 20 mg PO HS 02/18/22 03/01/22 History cetirizine 10 mg tablet (Zyrtec) 10 mg PO QAM 02/18/22 03/01/22 History fluticasone propionate 50 1 spray INTRANASAL DAILY 02/18/22 03/01/22 History mcg/actuation nasal spray,suspension naltrexone 50 mg tablet 100 mg PO BID 02/18/22 03/01/22 History metoprolol succinate 25 mg 25 mg PO BID 03/01/22 03/01/22 History tablet,extended release 24 hr montelukast 10 mg tablet 10 mg PO QPM 03/01/22 03/01/22 History propranolol 20 mg tablet 20 mg PO BID 03/01/22 03/01/22 History Personal History Beliefs That Will Affect Care: None Patient History Medical History (Updated 03/02/22 @ 13:54 by Lilly Harrison MD) Alcoholism Anxiety Asthma hx Breast hematoma after procedure Left breast after biopsy in 11/2019 Depression Depression 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 Huynh) Rosacea Ventricular tachycardia from alcohol withdrawl Surgical History H/O colonoscopy 05/01/2016 - perianal skin tag, normal colon H/O esophagogastroduodenoscopy 07/04/2009 - EUS exam- No choledocholithiasis, No masses appreciated in the entire pancreas. EGD exam- Normal examined duodenum. Bilious gastric fluid. Mild gastritis ? bilious etiology. Bx neg for H. pylori. Prominent fold just distal to GEJ. Bx- Squamocolumnar mucosa with mild carditis and hyperplastic changes. Negative for intestinal metaplasia and dysplasia. Medium sized hiatus hernia." On 03/10/17 15:26 Rita España wrote "07/04/2009- EUS exam- No choledocholithiasis, No masses appreciated in the entire pancreas. EGD exam- Normal examined duodenum. Bilious gastric fluid. Mild gastritis ? bilious etiology. This was biopsied to r/o H Pylori. Prominent fold just distal to GEJ. This was biopsied. Medium sized hiatus hernia." History of breast biopsy 11/30/2019 - Left Breast 02/08/2020 - Right Breast History of breast lump/mass excision 02/15/2020 - Right Breast History of dilation and curettage 2003 - s/p miscarriage History of lumpectomy of left breast 02/15/2020 History of lumpectomy of right breast 03/28/2020 History of mandibular surgery 1986 History of surgery 05/07/2016 - Anal Tag Removal S/P laparoscopic cholecystectomy 02/23/2004 Family History Mother Breast cancer, Onset Age: 76 Currently battling metastatic breast cancer Grandmother (Paternal) , Passed age 93 of stomach cancer No problems noted. Grandfather (Maternal) , Passed age 72 of colon cancer No problems noted. Father , Passed age 67 of complications from menigioma No problems noted. Aunt Breast cancer, Onset Age: 34 Alive and well Aunt Breast cancer, Onset Age: 62 alive and well Aunt Breast cancer, Onset Age: 62 Alive and well Brother Stroke Dementia Sister No problems noted. Son No problems noted. 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 occupational status: 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 Feels Safe at Home: Yes Safety Concerns: Feels Safe At This Time Childhood Exposure to Second-Hand Smoke: Yes (Mom ) caffeine: Yes (daily ) during the past year weight has: remained stable Dental Care, Regularly: Yes Assistive Devices: CPAP and Glasses Physical Exam Psychiatric: Orientation: alert Apperance: + disheveled Eye Contact: + fair eye contact Motor Behavior: no abnormal motor movements Speech: normal rate/rhythm/volume of speech Affect: + depressed affect Mood: no depressed mood Thought Process: + concrete thought process Thought Content: reality based without delusions Suicidal Thoughts: denies suicidal thoughts Homicidal Thoughts: denies homicidal thoughts Hallucinations: no auditory hallucinations and no visual hallucinations Cognition: language grossly intact Insight: + limited insight Judgement: + limited judgement Vital Signs (Past 24 Hours): Last Vital Signs Temp 36.8 C 03/02/22 12:33 Pulse 94 H 03/02/22 12:33 Resp 20 03/02/22 12:33 BP 122/45 L 03/02/22 12:33 Pulse Ox 96 03/02/22 12:33 Review of Systems All systems reviewed & are unremarkable except as noted in HPI & below Results & Data (PSY) Laboratory Results 03/02/22 03/02/22 03/02/22 Range/Units 08:19 05:34 05:34 WBC 5.65 (4.8-10.8) K/uL RBC 3.69 L (4.2-5.4) M/uL Hgb 11.6 L (12.0-16.0) g/dL Hct 32.7 L (37-47) % MCV 88.6 (80-100) fL MCH 31.4 (25-34) pg MCHC 35.5 (32-36) g/dL RDW Std Deviation 42.2 (36.4-46.3) fL RDW Coeff of Marybeth 13.2 (11.5-14.5) % Plt Count 146 (130-400) K/uL MPV 9.5 (7.4-10.4) fL Immature Gran % (Auto) 0.2 % Neut % (Auto) 68.2 % Lymph % (Auto) 18.6 % [place] % (Auto) 11.9 % Eos % (Auto) 0.7 % Baso % (Auto) 0.4 % Neut # (Auto) 3.86 (1.4-6.5) K/uL Lymph # (Auto) 1.05 L (1.2-3.4) K/uL [place] # (Auto) 0.67 H (0.11-0.59) K/uL Eos # (Auto) 0.04 (0-0.5) K/uL Baso # (Auto) 0.02 (0-0.2) K/uL Immature Gran # (Auto) 0.01 (0.00-0.02) K/uL PT (9.0-12.0) Seconds INR (0.9-1.1) Sodium 136 (136-145) mmol/L Potassium 3.2 L (3.5-5.1) mmol/L Chloride 102 (98-107) mmol/L Carbon Dioxide 23 (21-32) mmol/L Anion Gap 11 (3-11) BUN 12 (6-23) mg/dl Creatinine 0.72 (0.6-1.2) mg/dl Est Cr Clr Drug Dosing 100.7 ml/min Est GFR ( Amer) 110.0 ml/min Est GFR (Non-Af Amer) 94.9 ml/min BUN/Creatinine Ratio 16.7 (10-20) Glucose 119 H (70-99(Fasting)) mg/dl POC Glucose 155 H (70-99) mg/dl Calcium 7.8 L (8.5-10.1) mg/dl Phosphorus (2.5-4.9) mg/dl Magnesium 1.5 L (1.7-2.4) mg/dl Total Bilirubin (0.2-1.0) mg/dl AST (13-39) U/L ALT (7-52) U/L Alkaline Phosphatase (34-104) U/L Ammonia (18-72) umol/L Total Protein (6.0-8.3) gm/dl Albumin (3.4-5.0) gm/dl Globulin (2.5-4.0) gm/dl Albumin/Globulin Ratio (0.9-2) Triglycerides 85 (0-150) mg/dl Cholesterol 134 (0-200) mg/dl LDL Cholesterol, Calc 66 mg/dl VLDL Cholesterol, Calc 17 (0-30) mg/dl HDL Cholesterol 51 mg/dl Cholesterol/HDL Ratio 2.6 (0-5) Lipase (11-82) U/L TSH (0.300-4.500) uIu/ml HCG, Qual (Negative) Urine Color Urine Appearance (Clear) Urine pH (4.5-7.5) Ur Specific [place] (1.000-1.030) Urine Protein (Negative) Urine Glucose (UA) (Negative) Urine Ketones (Negative) Urine Blood (Negative) Urine Nitrite (Negative) Urine Bilirubin (Negative) Urine Urobilinogen (Negative) Ur Leukocyte Esterase (Negative) Urine WBC (Auto) (0-5) /hpf Urine RBC (Auto) (0-4) /hpf U Hyaline Cast (Auto) (0-5) /lpf U Epithel Cells (Auto) (0-5) /lpf Urine Bacteria (Auto) (Negative) Salicylates (3.0-30) mg/dl Urine Opiates Screen (Neg) Ur Methadone, Qual (Neg) Acetaminophen (10-30) ug/ml Urine Barbiturates (Neg) Ur Phencyclidine (PCP) (Neg) U Amphetamin/Meth Scrn (Neg) MDMA (Ecstasy) Screen (Neg) U Benzodiazepines Scrn (Neg) Ur Cocaine Metabolite (Neg) U Marijuana (THC) Screen (Neg) Ethyl Alcohol mg/dL (<10.0) mg/dl SARS-CoV-2, RNA, NAAT (NEGATIVE) 03/01/22 03/01/22 03/01/22 Range/Units 19:00 19:00 19:00 WBC (4.8-10.8) K/uL RBC (4.2-5.4) M/uL Hgb (12.0-16.0) g/dL Hct (37-47) % MCV (80-100) fL MCH (25-34) pg MCHC (32-36) g/dL RDW Std Deviation (36.4-46.3) fL RDW Coeff of Marybeth (11.5-14.5) % Plt Count (130-400) K/uL MPV (7.4-10.4) fL Immature Gran % (Auto) % Neut % (Auto) % Lymph % (Auto) % [place] % (Auto) % Eos % (Auto) % Baso % (Auto) % Neut # (Auto) (1.4-6.5) K/uL Lymph # (Auto) (1.2-3.4) K/uL [place] # (Auto) (0.11-0.59) K/uL Eos # (Auto) (0-0.5) K/uL Baso # (Auto) (0-0.2) K/uL Immature Gran # (Auto) (0.00-0.02) K/uL PT (9.0-12.0) Seconds INR (0.9-1.1) Sodium (136-145) mmol/L Potassium (3.5-5.1) mmol/L Chloride (98-107) mmol/L Carbon Dioxide (21-32) mmol/L Anion Gap (3-11) BUN (6-23) mg/dl Creatinine (0.6-1.2) mg/dl Est Cr Clr Drug Dosing ml/min Est GFR ( Amer) ml/min Est GFR (Non-Af Amer) ml/min BUN/Creatinine Ratio (10-20) Glucose (70-99(Fasting)) mg/dl POC Glucose (70-99) mg/dl Calcium (8.5-10.1) mg/dl Phosphorus (2.5-4.9) mg/dl Magnesium (1.7-2.4) mg/dl Total Bilirubin (0.2-1.0) mg/dl AST (13-39) U/L ALT (7-52) U/L Alkaline Phosphatase (34-104) U/L Ammonia (18-72) umol/L Total Protein (6.0-8.3) gm/dl Albumin (3.4-5.0) gm/dl Globulin (2.5-4.0) gm/dl Albumin/Globulin Ratio (0.9-2) Triglycerides (0-150) mg/dl Cholesterol (0-200) mg/dl LDL Cholesterol, Calc mg/dl VLDL Cholesterol, Calc (0-30) mg/dl HDL Cholesterol mg/dl Cholesterol/HDL Ratio (0-5) Lipase (11-82) U/L TSH (0.300-4.500) uIu/ml HCG, Qual (Negative) Urine Color Yellow Urine Appearance Clear (Clear) Urine pH 5.5 (4.5-7.5) Ur Specific [place] 1.019 (1.000-1.030) Urine Protein Trace H (Negative) Urine Glucose (UA) 2+ H (Negative) Urine Ketones 3+ H (Negative) Urine Blood Negative (Negative) Urine Nitrite Negative (Negative) Urine Bilirubin Negative (Negative) Urine Urobilinogen Negative (Negative) Ur Leukocyte Esterase Negative (Negative) Urine WBC (Auto) 1-5 (0-5) /hpf Urine RBC (Auto) 0-4 (0-4) /hpf U Hyaline Cast (Auto) 1-5 (0-5) /lpf U Epithel Cells (Auto) 10-20 H (0-5) /lpf Urine Bacteria (Auto) Negative (Negative) Salicylates (3.0-30) mg/dl Urine Opiates Screen Neg (Neg) Ur Methadone, Qual Neg (Neg) Acetaminophen (10-30) ug/ml Urine Barbiturates Neg (Neg) Ur Phencyclidine (PCP) Neg (Neg) U Amphetamin/Meth Scrn Neg (Neg) MDMA (Ecstasy) Screen Neg (Neg) U Benzodiazepines Scrn Neg (Neg) Ur Cocaine Metabolite Neg (Neg) U Marijuana (THC) Screen Neg (Neg) Ethyl Alcohol mg/dL (<10.0) mg/dl SARS-CoV-2, RNA, NAAT NEGATIVE (NEGATIVE) 03/01/22 03/01/22 03/01/22 Range/Units 18:29 17:30 17:30 WBC (4.8-10.8) K/uL RBC (4.2-5.4) M/uL Hgb (12.0-16.0) g/dL Hct (37-47) % MCV (80-100) fL MCH (25-34) pg MCHC (32-36) g/dL RDW Std Deviation (36.4-46.3) fL RDW Coeff of Marybeth (11.5-14.5) % Plt Count (130-400) K/uL MPV (7.4-10.4) fL Immature Gran % (Auto) % Neut % (Auto) % Lymph % (Auto) % [place] % (Auto) % Eos % (Auto) % Baso % (Auto) % Neut # (Auto) (1.4-6.5) K/uL Lymph # (Auto) (1.2-3.4) K/uL [place] # (Auto) (0.11-0.59) K/uL Eos # (Auto) (0-0.5) K/uL Baso # (Auto) (0-0.2) K/uL Immature Gran # (Auto) (0.00-0.02) K/uL PT 10.3 (9.0-12.0) Seconds INR 1.0 (0.9-1.1) Sodium (136-145) mmol/L Potassium (3.5-5.1) mmol/L Chloride (98-107) mmol/L Carbon Dioxide (21-32) mmol/L Anion Gap (3-11) BUN (6-23) mg/dl Creatinine (0.6-1.2) mg/dl Est Cr Clr Drug Dosing ml/min Est GFR ( Amer) ml/min Est GFR (Non-Af Amer) ml/min BUN/Creatinine Ratio (10-20) Glucose (70-99(Fasting)) mg/dl POC Glucose (70-99) mg/dl Calcium (8.5-10.1) mg/dl Phosphorus 2.0 L (2.5-4.9) mg/dl Magnesium Cancelled (1.7-2.4) mg/dl Total Bilirubin (0.2-1.0) mg/dl AST (13-39) U/L ALT (7-52) U/L Alkaline Phosphatase (34-104) U/L Ammonia 20.0 (18-72) umol/L Total Protein (6.0-8.3) gm/dl Albumin (3.4-5.0) gm/dl Globulin (2.5-4.0) gm/dl Albumin/Globulin Ratio (0.9-2) Triglycerides (0-150) mg/dl Cholesterol (0-200) mg/dl LDL Cholesterol, Calc mg/dl VLDL Cholesterol, Calc (0-30) mg/dl HDL Cholesterol mg/dl Cholesterol/HDL Ratio (0-5) Lipase (11-82) U/L TSH (0.300-4.500) uIu/ml HCG, Qual (Negative) Urine Color Urine Appearance (Clear) Urine pH (4.5-7.5) Ur Specific [place] (1.000-1.030) Urine Protein (Negative) Urine Glucose (UA) (Negative) Urine Ketones (Negative) Urine Blood (Negative) Urine Nitrite (Negative) Urine Bilirubin (Negative) Urine Urobilinogen (Negative) Ur Leukocyte Esterase (Negative) Urine WBC (Auto) (0-5) /hpf Urine RBC (Auto) (0-4) /hpf U Hyaline Cast (Auto) (0-5) /lpf U Epithel Cells (Auto) (0-5) /lpf Urine Bacteria (Auto) (Negative) Salicylates (3.0-30) mg/dl Urine Opiates Screen (Neg) Ur Methadone, Qual (Neg) Acetaminophen (10-30) ug/ml Urine Barbiturates (Neg) Ur Phencyclidine (PCP) (Neg) U Amphetamin/Meth Scrn (Neg) MDMA (Ecstasy) Screen (Neg) U Benzodiazepines Scrn (Neg) Ur Cocaine Metabolite (Neg) U Marijuana (THC) Screen (Neg) Ethyl Alcohol mg/dL (<10.0) mg/dl SARS-CoV-2, RNA, NAAT (NEGATIVE) 03/01/22 03/01/22 03/01/22 Range/Units 17:30 17:30 17:30 WBC (4.8-10.8) K/uL RBC (4.2-5.4) M/uL Hgb (12.0-16.0) g/dL Hct (37-47) % MCV (80-100) fL MCH (25-34) pg MCHC (32-36) g/dL RDW Std Deviation (36.4-46.3) fL RDW Coeff of Marybeth (11.5-14.5) % Plt Count (130-400) K/uL MPV (7.4-10.4) fL Immature Gran % (Auto) % Neut % (Auto) % Lymph % (Auto) % [place] % (Auto) % Eos % (Auto) % Baso % (Auto) % Neut # (Auto) (1.4-6.5) K/uL Lymph # (Auto) (1.2-3.4) K/uL [place] # (Auto) (0.11-0.59) K/uL Eos # (Auto) (0-0.5) K/uL Baso # (Auto) (0-0.2) K/uL Immature Gran # (Auto) (0.00-0.02) K/uL PT (9.0-12.0) Seconds INR (0.9-1.1) Sodium (136-145) mmol/L Potassium (3.5-5.1) mmol/L Chloride (98-107) mmol/L Carbon Dioxide (21-32) mmol/L Anion Gap (3-11) BUN (6-23) mg/dl Creatinine (0.6-1.2) mg/dl Est Cr Clr Drug Dosing ml/min Est GFR ( Amer) ml/min Est GFR (Non-Af Amer) ml/min BUN/Creatinine Ratio (10-20) Glucose (70-99(Fasting)) mg/dl POC Glucose (70-99) mg/dl Calcium (8.5-10.1) mg/dl Phosphorus (2.5-4.9) mg/dl Magnesium (1.7-2.4) mg/dl Total Bilirubin (0.2-1.0) mg/dl AST (13-39) U/L ALT (7-52) U/L Alkaline Phosphatase (34-104) U/L Ammonia (18-72) umol/L Total Protein (6.0-8.3) gm/dl Albumin (3.4-5.0) gm/dl Globulin (2.5-4.0) gm/dl Albumin/Globulin Ratio (0.9-2) Triglycerides (0-150) mg/dl Cholesterol (0-200) mg/dl LDL Cholesterol, Calc mg/dl VLDL Cholesterol, Calc (0-30) mg/dl HDL Cholesterol mg/dl Cholesterol/HDL Ratio (0-5) Lipase (11-82) U/L TSH 3.304 (0.300-4.500) uIu/ml HCG, Qual (Negative) Urine Color Urine Appearance (Clear) Urine pH (4.5-7.5) Ur Specific [place] (1.000-1.030) Urine Protein (Negative) Urine Glucose (UA) (Negative) Urine Ketones (Negative) Urine Blood (Negative) Urine Nitrite (Negative) Urine Bilirubin (Negative) Urine Urobilinogen (Negative) Ur Leukocyte Esterase (Negative) Urine WBC (Auto) (0-5) /hpf Urine RBC (Auto) (0-4) /hpf U Hyaline Cast (Auto) (0-5) /lpf U Epithel Cells (Auto) (0-5) /lpf Urine Bacteria (Auto) (Negative) Salicylates < 3.0 L (3.0-30) mg/dl Urine Opiates Screen (Neg) Ur Methadone, Qual (Neg) Acetaminophen < 3 L (10-30) ug/ml Urine Barbiturates (Neg) Ur Phencyclidine (PCP) (Neg) U Amphetamin/Meth Scrn (Neg) MDMA (Ecstasy) Screen (Neg) U Benzodiazepines Scrn (Neg) Ur Cocaine Metabolite (Neg) U Marijuana (THC) Screen (Neg) Ethyl Alcohol mg/dL 311.8 H (<10.0) mg/dl SARS-CoV-2, RNA, NAAT (NEGATIVE) 03/01/22 03/01/22 03/01/22 Range/Units 17:30 17:30 17:30 WBC 10.49 (4.8-10.8) K/uL RBC 4.49 (4.2-5.4) M/uL Hgb 14.5 (12.0-16.0) g/dL Hct 39.6 (37-47) % MCV 88.2 (80-100) fL MCH 32.3 (25-34) pg MCHC 36.6 H (32-36) g/dL RDW Std Deviation 41.7 (36.4-46.3) fL RDW Coeff of Marybeth 13.1 (11.5-14.5) % Plt Count 205 (130-400) K/uL MPV 8.8 (7.4-10.4) fL Immature Gran % (Auto) 0.2 % Neut % (Auto) 74.0 % Lymph % (Auto) 13.6 % [place] % (Auto) 11.7 % Eos % (Auto) 0.4 % Baso % (Auto) 0.1 % Neut # (Auto) 7.76 H (1.4-6.5) K/uL Lymph # (Auto) 1.43 (1.2-3.4) K/uL [place] # (Auto) 1.23 H (0.11-0.59) K/uL Eos # (Auto) 0.04 (0-0.5) K/uL Baso # (Auto) 0.01 (0-0.2) K/uL Immature Gran # (Auto) 0.02 (0.00-0.02) K/uL PT (9.0-12.0) Seconds INR (0.9-1.1) Sodium 132 L (136-145) mmol/L Potassium 3.9 (3.5-5.1) mmol/L Chloride 93 L (98-107) mmol/L Carbon Dioxide 20 L (21-32) mmol/L Anion Gap 19 H (3-11) BUN 14 (6-23) mg/dl Creatinine 0.83 (0.6-1.2) mg/dl Est Cr Clr Drug Dosing 80.4 ml/min Est GFR ( Amer) 92.7 ml/min Est GFR (Non-Af Amer) 79.9 ml/min BUN/Creatinine Ratio 16.9 (10-20) Glucose 204 H (70-99(Fasting)) mg/dl POC Glucose (70-99) mg/dl Calcium 8.6 (8.5-10.1) mg/dl Phosphorus (2.5-4.9) mg/dl Magnesium 1.9 (1.7-2.4) mg/dl Total Bilirubin 0.7 (0.2-1.0) mg/dl AST 122 H (13-39) U/L ALT 72 H (7-52) U/L Alkaline Phosphatase 71 (34-104) U/L Ammonia (18-72) umol/L Total Protein 7.5 (6.0-8.3) gm/dl Albumin 4.4 (3.4-5.0) gm/dl Globulin 3.1 (2.5-4.0) gm/dl Albumin/Globulin Ratio 1.4 (0.9-2) Triglycerides (0-150) mg/dl Cholesterol (0-200) mg/dl LDL Cholesterol, Calc mg/dl VLDL Cholesterol, Calc (0-30) mg/dl HDL Cholesterol mg/dl Cholesterol/HDL Ratio (0-5) Lipase 52 (11-82) U/L TSH (0.300-4.500) uIu/ml HCG, Qual Negative (Negative) Urine Color Urine Appearance (Clear) Urine pH (4.5-7.5) Ur Specific [place] (1.000-1.030) Urine Protein (Negative) Urine Glucose (UA) (Negative) Urine Ketones (Negative) Urine Blood (Negative) Urine Nitrite (Negative) Urine Bilirubin (Negative) Urine Urobilinogen (Negative) Ur Leukocyte Esterase (Negative) Urine WBC (Auto) (0-5) /hpf Urine RBC (Auto) (0-4) /hpf U Hyaline Cast (Auto) (0-5) /lpf U Epithel Cells (Auto) (0-5) /lpf Urine Bacteria (Auto) (Negative) Salicylates (3.0-30) mg/dl Urine Opiates Screen (Neg) Ur Methadone, Qual (Neg) Acetaminophen (10-30) ug/ml Urine Barbiturates (Neg) Ur Phencyclidine (PCP) (Neg) U Amphetamin/Meth Scrn (Neg) MDMA (Ecstasy) Screen (Neg) U Benzodiazepines Scrn (Neg) Ur Cocaine Metabolite (Neg) U Marijuana (THC) Screen (Neg) Ethyl Alcohol mg/dL (<10.0) mg/dl SARS-CoV-2, RNA, NAAT (NEGATIVE) Medications Administered Amitriptyline HCl (Amitriptyline Hcl 50 Mg Tab) 50 mg PO HS CASSANDRA Stop: 03/31/22 21:46 Last Admin: 03/01/22 23:26 Dose: 50 mg Documented by: [id number] Atorvastatin Calcium (Atorvastatin 20 Mg Tab) 20 mg PO [facility] Stop: 03/31/22 21:46 Last Admin: 03/01/22 23:25 Dose: 20 mg Documented by: [id number] Cetirizine HCl (Cetirizine Hcl 10 Mg Tablet) 10 mg PO QAM [facility] Stop: 04/01/22 08:59 Last Admin: 03/02/22 08:31 Dose: 10 mg Documented by: [id number] Chlordiazepoxide HCl (Chlordiazepoxide Hcl 25 Mg Cap) 25 mg PO Q6H CASSANDRA; Taper Stop: 03/04/22 23:59 Last Admin: 03/02/22 12:03 Dose: 25 mg Documented by: [id number] Admin: 03/02/22 05:57 Dose: 25 mg Documented by: [id number] Admin: 03/02/22 00:56 Dose: 25 mg Documented by: [id number] Enoxaparin Sodium (Enoxaparin Inj 40 Mg/0.4 Ml Syr) 40 mg SQ Q24H CASSANDRA Stop: 03/31/22 21:46 Last Admin: 03/01/22 23:25 Dose: 40 mg Documented by: [id number] Fluticasone Propionate (Fluticasone Propionate Na Spr 16 Gm Btl) 1 sprays RAJAT DAILY [facility] Stop: 04/01/22 08:59 Last Admin: 03/02/22 08:31 Dose: 1 sprays Documented by: [id number] Folic Acid (Folic Acid 1 Mg Tab) 1 mg PO QAM CASSANDRA Stop: 03/31/22 21:46 Last Admin: 03/02/22 08:32 Dose: 1 mg Documented by: [id number] Admin: 03/01/22 23:27 Dose: 1 mg Documented by: [id number] Thiamine HCl 500 mg/ Sodium (Chloride) 55 mls @ 220 mls/hr IV Q8H CASSANDRA Stop: 04/01/22 08:59 Last Infusion: 03/02/22 11:09 Dose: 0 mls/hr Documented by: [id number] Admin: 03/02/22 10:50 Dose: 220 mls/hr Documented by: [id number] Metoprolol Succinate (Metoprolol Succ 25mg Ext Rel Tab) 25 mg PO BID CASSANDRA Stop: 03/31/22 21:46 Last Admin: 03/02/22 08:32 Dose: 25 mg Documented by: [id number] Admin: 03/01/22 23:26 Dose: 25 mg Documented by: [id number] Miscellaneous (Pristiq~Order Awaiting Action) 1 ea N/A QS CASSANDRA Stop: 03/31/22 22:59 Last Admin: 03/02/22 09:14 Dose: Not Given Documented by: [id number] Admin: 03/02/22 00:51 Dose: Not Given Documented by: [id number] Montelukast Sodium (Montelukast Sodium 10 Mg Tablet) 10 mg PO QPM CASSANDRA Stop: 03/31/22 21:46 Last Admin: 03/01/22 23:26 Dose: 10 mg Documented by: [id number] Nystatin (Nystatin Susp 500,000 U/5 Ml Ud) 5 ml PO QID CASSANDRA Stop: 03/11/22 21:46 Last Admin: 03/02/22 12:04 Dose: 5 ml Documented by: [id number] Admin: 03/02/22 08:32 Dose: 5 ml Documented by: [id number] Admin: 03/01/22 23:28 Dose: 5 ml Documented by: [id number] Pantoprazole Sodium (Pantoprazole 40 Mg Tab) 40 mg PO QAM CASSANDRA Stop: 04/01/22 08:59 Last Admin: 03/02/22 08:32 Dose: 40 mg Documented by: [id number] Coding Level of Care Code 24405 U Intl Hosp Care Lvl 2 Diagnoses Alcohol withdrawal F10.230 Complication of substance-induced condition: uncomplicated Anxiety F41.9
[2022-03-02] MEDS: LORazepam 1 mg IV INJ IV PRN ×2 (14:22→18:27)
[2022-03-02] MEDS ORDERED: VENLAFAXINE HCL XR 75 MG CAPXR PO ONE (14:30)
--- NOTE | 2022-03-02 14:30 | Hospitalist Progress Note ---
Date of Service March 02, 2022 Assessment & Plan (1) Supraventricular tachycardia: Plan: Has been having runs of supraventricular tachycardia. Initial episode spontaneously resolved back to normal sinus rhythm. However a recurrence despite 2 doses of adenosine persisted. Initially started amiodarone, which was discontinued by cardiology, currently now on p.o. Cardizem. Appreciate cardiology commendations (2) Alcohol dependence: Plan: Alcohol abuse/dependance- patient voluntarily stopped her antabuse this week and resumed drinking - she comes in wanting to quit Outpatient follow-up with a detox /rehab center (3) Alcohol withdrawal: Plan: Patient currently with withdrawl symptoms of tachycardia, tremors - Continue [employer] protocol -seizure and fall precaution (4) Elevated transaminase level: Plan: Secondary to ETOH abuse ~ 2:1 ratio - Has had higher levels in the past - Trend mild icterus (5) Mood disorder: Plan: On Elavil, Pristiq at home, however, Prsitrue is non formulry will replace with effexor 75mg today, then 150mg from tomorrow morning (6) Hypothyroidism: Plan: 3.3- not on medication (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 Admission and Anticipated Discharge Date Admission Date: March 01, 2022 Subjective Patient seen and examined this morning, has been having runs of SVT Review of Systems Review of Systems: All systems reviewed are negative, apart from the ones contained in the history. Physical Exam Physical Exam: The patient is awake, alert and oriented 3, well developed and well nourished, normocephalic and atraumatic, lying in bed and in no acute distress. HEENT--PERRL, EOMI, mucous membranes and oropharynx mildly dry Neck--supple. No JVD. No bruits. Thyroid normal, trachea midline, no adenopathy. Heart--normal S1 and S2. No murmurs, rubs or gallops. Lungs--clear bilaterally, no respiratory distress, no accessory muscle use. Abdomen--normal bowel sounds and soft. Mild epigastric and left sided abdominal pain Extremities--no cyanosis or clubbing. No edema. Dermatologic--normal skin turgor, normal color, no abnormal lymph nodes, no ra sh. Neurologic--cranial nerves II through XII grossly intact. Rheumatologic--normal range of motion. Psychiatric--normal affect. Results & Data Results & Data ([facility]) Vital Signs (Past 12 Hours) Vital Signs Temp Pulse Resp BP Pulse Ox 03/02/22 12:33 98.2 F 94 H 20 122/45 L 96 03/02/22 10:22 93 H 18 128/88 99 03/02/22 09:38 174 H 20 135/92 98 03/02/22 09:15 172 H 20 127/82 97 03/02/22 09:12 179 H 18 128/82 96 03/02/22 08:00 82 16 112/68 03/02/22 07:23 98.8 F 82 18 112/68 94 03/02/22 05:02 98.6 F 83 16 107/67 95 03/02/22 04:00 97.9 F 103 H 18 105/63 96 PG Care Time/CCT Total # of Minutes Spent Total Time Spent with Patient: Total time spent is greater than 50% in coordination of care (as documented) at patient's floor/unit and/or counseling patient: Coding Level of Care Code 62587 Subseq Hosp Care Lvl 2 Diagnoses Alcohol dependence F10.239 Complication of substance-induced condition: with unspecified complication Substance use status: in withdrawal Alcohol withdrawal F10.239 Complication of substance-induced condition: with unspecified complication Elevated transaminase level R74.01 Mood disorder F39 Hypothyroidism E03.9 Ductal carcinoma in situ (DCIS) of left breast D05.12 Supraventricular tachycardia I47.1 Time Spent (min) 35 (1) Alcohol dependence Complication of substance-induced condition: with unspecified complication Substance use status: in withdrawal Qualified Code(s): F10.239 - Alcohol dependence with withdrawal, unspecified (2) Alcohol withdrawal Complication of substance-induced condition: with unspecified complication Qualified Code(s): F10.239 - Alcohol dependence with withdrawal, unspecified
[2022-03-02] MEDS ORDERED: AMIODARONE / D5W 360 MG/200 ML BAG IV SCH (15:15)
--- NOTE | 2022-03-02 15:23 | Communication Note ---
Date of Service: March 02, 2022 Patient completed PHQ-9=14. She endorsed passive SI but no plan or intent. Now indicated to liaison that she is willing to increase her hours at [facility]. Apparently did well in the past with Antabuse and may consider it again as an outpatient.
[2022-03-02] MEDS: dilTIAZem HCL 30 MG TAB PO SCH ×2 (15:33→20:18)
[2022-03-02] MEDS: MONTELUKAST SODIUM 10 MG TABLET PO SCH (20:18)
[2022-03-02] MEDS: ATORVASTATIN 20 MG TAB PO SCH (20:18)
[2022-03-02] MEDS: ENOXAPARIN INJ 40 MG/0.4 ML SYR SQ SCH (20:18)
[2022-03-02] MEDS: AMITRIPTYLINE HCL 50 MG TAB PO SCH (20:18)
[2022-03-03] MEDS: THIAMINE HCL 500 MG in SODIUM CHLORIDE 0.9% 50 ML IV SCH ×3 (01:22→18:29)
[2022-03-03] MEDS: LORazepam 1 mg IV INJ IV PRN ×3 (02:47→20:23)
[2022-03-03 06:34] LABS: Basophils # (auto) 0.01 K/uL (0-0.2); Basophils % (auto) 0.3 %; Eosinophils # (auto) 0.24 K/uL (0-0.5); Eosinophils % (auto) 6.2 %; Hematocrit (blood only) 35.6 % (37-47); Hemoglobin 12.4 g/dL (12.0-16.0); Immature Granulocytes # (auto) 0.01 K/uL (0.00-0.02); Immature Granulocytes % (auto) 0.3 %; Lymphocytes # (auto) 0.79 K/uL (1.2-3.4); Lymphocytes % (auto) 20.4 %; Mean Corpuscular Hemoglobin 31.5 pg (25-34); Mean Corpuscular Hgb Conc 34.8 g/dL (32-36); Mean Corpuscular Volume 90.4 fL (80-100); Mean Platelet Volume 9.4 fL (7.4-10.4); Monocytes # (auto) 0.34 K/uL (0.11-0.59); Monocytes % (auto) 8.8 %; Neutrophils # (auto) 2.49 K/uL (1.4-6.5); Platelet Count 105 K/uL (130-400); RDW Coefficient of Variation 13.4 % (11.5-14.5); RDW Standard Deviation 43.5 fL (36.4-46.3); Red Blood Count 3.94 M/uL (4.2-5.4); White Blood Count 3.88 K/uL (4.8-10.8)
[2022-03-03 06:49] LABS: Calcium 8.1 mg/dl (8.5-10.1); Creatinine Clr Calc Pharmacy 100.1 ml/min; Est GFR (African American) 104.7 ml/min; Est GFR (Non-African American) 90.4 ml/min; Magnesium 1.9 mg/dl (1.7-2.4); Potassium 3.3 mmol/L (3.5-5.1)
[2022-03-03] MEDS: FLUTICASONE PROPIONATE NA SPR 16 GM BTL NAE SCH (08:04)
[2022-03-03] MEDS: chlordiazePOXIDE HCl 25 MG CAP PO SCH ×2 (08:04→15:46)
[2022-03-03] MEDS: NYSTATIN SUSP 500,000 U/5 ML UDC PO SCH ×4 (08:06→20:32)
[2022-03-03] MEDS: FOLIC ACID 1 MG TAB PO SCH (08:06)
[2022-03-03] MEDS: METOPROLOL SUCC 25MG EXT REL TAB PO SCH ×2 (08:06→20:32)
[2022-03-03] MEDS: dilTIAZem HCL 30 MG TAB PO SCH ×3 (08:06→20:29)
[2022-03-03] MEDS: PANTOprazole 40 MG TAB PO SCH (08:07)
[2022-03-03] MEDS: VENLAFAXINE HCL XR 150 MG CAPXR PO SCH (08:07)
[2022-03-03] MEDS: CETIRIZINE HCL 10 MG TABLET PO SCH (08:07)
[2022-03-03] MEDS ORDERED: dilTIAZem HCl 5 MG/ML 5 ML VIAL IV ONE (11:51)
[2022-03-03] MEDS ORDERED: STAT IV Infusion **Titration per Protocol STA (11:55)
[2022-03-03] MEDS ORDERED: dilTIAZem HCl 5 MG/ML 5 ML VIAL IV STA (11:55)
[2022-03-03] MEDS ORDERED: dilTIAZem HCL 125 MG in DEXTROSE 5% 100 ML IV SCH (12:00)
--- NOTE | 2022-03-03 12:03 | Cardiology Progress Note ---
Date of Service March 03, 2022 Assessment & Plan (1) Alcohol withdrawal: (2) Supraventricular tachycardia: (3) Abnormal TSH: (4) Dehydration: (5) Elevated transaminase level: (6) Elevated glucose level: (7) Mood disorder: (8) Ventricular tachycardia: Plan: Ms. Perla does carry a history of SVT and possible VT during acute alcohol withdrawal. recurrent SVT this am into 160's, stable will start cardizem bolus and gtt We will continue oral beta-vicky. No cardiac contraindication to continuing Elavil and Ativan for withdrawal symptoms We will defer treatment of alcohol withdrawal to the primary team Patient will require close monitoring of electrolytes and repletion to maintain potassium between 4 and 5 and magnesium greater than 2 Potassium magnesium remained below goal today. I started supplementation. Admission and Anticipated Discharge Date Admission Date: March 01, 2022 Subjective Patient seen and examined, chart reviewed. Contacted by bedside nursing the patient once again in SVT this a.m. Patient sat up at the edge of the bed was eating lunch when she suddenly felt that her heart start to race again. SVT was confirmed on monitor. I was contacted by nursing and IV Cardizem bolus and drip was initiated. Currently states that she is feeling very anxious with ongoing tremor and palpitations. Telemetry reviewed: Normal sinus rhythm overnight with SVT in the 140s currently Review of Systems Review of Systems: All systems reviewed & are unremarkable except as noted in HPI & below Physical Exam Physical Exam: Physical Exam: General: Awake, alert and oriented x 3. Moderately anxious during examination and diaphoretic HEENT: Normocephalic, atraumatic. Pupils equal, round and reactive to light and accommodation. Extraocular muscles are intact. Anicteric sclera. Moist mucous membranes. Neck: No JVD. No bruit. Cardiovascular: Regular but tachycardic. No S-4. Normal S-1 and S-2. No S-3. No murmurs, rubs or gallops. Pulmonary: Clear to auscultation bilaterally. No rales, rhonchi, or wheezing. Abdomen: Bowel sounds x 4, soft. No rebound, guarding or tenderness. No organomegaly. Extremities: No clubbing, cyanosis or edema. +2 pedal pulses bilaterally. Skin: Warm and dry. Results & Data ([facility]) Vital Signs (Past 12 Hours) Vital Signs Temp Pulse Resp BP Pulse Ox 03/03/22 07:48 36.5 C 90 18 109/66 96 03/03/22 02:34 36.7 C 96 H 20 119/82 97 (1) Alcohol withdrawal Complication of substance-induced condition: uncomplicated Qualified Code(s): F10.230 - Alcohol dependence with withdrawal, uncomplicated
[2022-03-03] MEDS: MAGNESIUM OXIDE 400 MG TAB PO SCH ×2 (13:19→20:30)
[2022-03-03] MEDS: POTASSIUM CHLORIDE CRTAB 20 MEQ TABCR PO SCH ×2 (13:19→20:32)
--- NOTE | 2022-03-03 13:32 | Hospitalist Progress Note ---
Date of Service March 03, 2022 Assessment & Plan (1) Supraventricular tachycardia: Plan: Still having runs of SVT's Now on cardize Drip Cardiology appreciated (2) Alcohol dependence: Plan: Alcohol abuse/dependance- patient voluntarily stopped her antabuse this week and resumed drinking - she comes in wanting to quit Outpatient follow-up with a detox /rehab center (3) Alcohol withdrawal: Plan: Patient currently with withdrawl symptoms of tachycardia, tremors - Continue [facility] protocol -seizure and fall precaution (4) Elevated transaminase level: Plan: Secondary to ETOH abuse ~ 2:1 ratio - Has had higher levels in the past - Trend mild icterus (5) Mood disorder: Plan: On Elavil, Pristiq at home, however, Prsitrue is non formulry will replace with effexor 75mg today, then 150mg from tomorrow morning (6) Hypothyroidism: Plan: 3.3- not on medication (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 Plan: continue to monitor Admission and Anticipated Discharge Date Admission Date: March 01, 2022 Subjective Patient seen and examined this morning, has been having runs of SVT again today Review of Systems Review of Systems: All systems reviewed are negative, apart from the ones contained in the history. Physical Exam Physical Exam: The patient is awake, alert and oriented 3, well developed and well nourished, normocephalic and atraumatic, lying in bed and in no acute distress. HEENT--PERRL, EOMI, mucous membranes and oropharynx mildly dry Neck--supple. No JVD. No bruits. Thyroid normal, trachea midline, no adenopathy. Heart--normal S1 and S2. No murmurs, rubs or gallops. Lungs--clear bilaterally, no respiratory distress, no accessory muscle use. Abdomen--normal bowel sounds and soft. Mild epigastric and left sided abdominal pain Extremities--no cyanosis or clubbing. No edema. Dermatologic--normal skin turgor, normal color, no abnormal lymph nodes, no rash. Neurologic--cranial nerves II through XII grossly intact. coarse tremors Rheumatologic--normal range of motion. Psychiatric--normal affect. Results & Data Results & Data ([facility]) Vital Signs (Past 12 Hours) Vital Signs Temp Pulse Resp BP Pulse Ox 03/03/22 07:48 97.7 F 90 18 109/66 96 03/03/22 02:34 98.1 F 96 H 20 119/82 97 Laboratory Results Laboratory Results - last 24 hr 03/03/22 03/03/22 06:09 06:09 WBC 3.88 L RBC 3.94 L Hgb 12.4 Hct 35.6 L MCV 90.4 MCH 31.5 MCHC 34.8 RDW Std Deviation 43.5 RDW Coeff of Marybeth 13.4 Plt Count 105 L MPV 9.4 Immature Gran % (Auto) 0.3 Neut % (Auto) 64.0 Lymph % (Auto) 20.4 [place] % (Auto) 8.8 Eos % (Auto) 6.2 Baso % (Auto) 0.3 Neut # (Auto) 2.49 Lymph # (Auto) 0.79 L [place] # (Auto) 0.34 Eos # (Auto) 0.24 Baso # (Auto) 0.01 Immature Gran # (Auto) 0.01 Sodium 135 L Potassium 3.3 L Chloride 103 Carbon Dioxide 25 Anion Gap 7 BUN 9 Creatinine 0.75 Est Cr Clr Drug Dosing 100.1 Est GFR ( Amer) 104.7 Est GFR (Non-Af Amer) 90.4 BUN/Creatinine Ratio 12.0 Glucose 125 H Calcium 8.1 L Magnesium 1.9 PG Care Time/CCT Total # of Minutes Spent Total Time Spent with Patient: Total time spent is greater than 50% in coordination of care (as documented) at patient's floor/unit and/or counseling patient: Coding Level of Care Code 76513 Subseq Hosp Care Lvl 2 Diagnoses Supraventricular tachycardia I47.1 Alcohol dependence F10.239 Complication of substance-induced condition: with unspecified complication Substance use status: in withdrawal Alcohol withdrawal F10.239 Complication of substance-induced condition: with unspecified complication Elevated transaminase level R74.01 Mood disorder F39 Hypothyroidism E03.9 Ductal carcinoma in situ (DCIS) of left breast D05.12 Time Spent (min) 35 (1) Alcohol dependence Complication of substance-induced condition: with unspecified complication Substance use status: in withdrawal Qualified Code(s): F10.239 - Alcohol dependence with withdrawal, unspecified (2) Alcohol withdrawal Complication of substance-induced condition: with unspecified complication Qualified Code(s): F10.239 - Alcohol dependence with withdrawal, unspecified
[2022-03-03 18:56] LABS: BUN Creatinine Ratio 10.1 (10-20); Calcium 8.7 mg/dl (8.5-10.1); Creatinine Clr Calc Pharmacy 75.8 ml/min; Est GFR (African American) 74.9 ml/min; Est GFR (Non-African American) 64.6 ml/min
[2022-03-03] MEDS: MONTELUKAST SODIUM 10 MG TABLET PO SCH (20:28)
[2022-03-03] MEDS: ATORVASTATIN 20 MG TAB PO SCH (20:30)
[2022-03-03] MEDS: AMITRIPTYLINE HCL 50 MG TAB PO SCH (20:30)
[2022-03-03] MEDS: ENOXAPARIN INJ 40 MG/0.4 ML SYR SQ SCH (21:25)
[2022-03-04] MEDS: chlordiazePOXIDE HCl 25 MG CAP PO SCH ×3 (00:12→16:55)
[2022-03-04] MEDS: THIAMINE HCL 500 MG in SODIUM CHLORIDE 0.9% 50 ML IV SCH ×3 (00:52→16:56)
[2022-03-04 06:37] LABS: Basophils # (auto) 0.02 K/uL (0-0.2); Basophils % (auto) 0.6 %; Eosinophils % (auto) 5.6 %; Hematocrit (blood only) 36.2 % (37-47); Hemoglobin 12.5 g/dL (12.0-16.0); Immature Granulocytes # (auto) 0.01 K/uL (0.00-0.02); Immature Granulocytes % (auto) 0.3 %; Lymphocytes # (auto) 1.08 K/uL (1.2-3.4); Lymphocytes % (auto) 30.1 %; Mean Corpuscular Hemoglobin 31.3 pg (25-34); Mean Corpuscular Hgb Conc 34.5 g/dL (32-36); Mean Corpuscular Volume 90.7 fL (80-100); Mean Platelet Volume 9.4 fL (7.4-10.4); Monocytes # (auto) 0.37 K/uL (0.11-0.59); Monocytes % (auto) 10.3 %; Neutrophils # (auto) 1.91 K/uL (1.4-6.5); Neutrophils % (auto) 53.1 %; Platelet Count 106 K/uL (130-400); RDW Coefficient of Variation 13.3 % (11.5-14.5); RDW Standard Deviation 43.8 fL (36.4-46.3); Red Blood Count 3.99 M/uL (4.2-5.4); White Blood Count 3.59 K/uL (4.8-10.8)
[2022-03-04 07:12] LABS: BUN Creatinine Ratio 14.3 (10-20); Calcium 8.1 mg/dl (8.5-10.1); Creatinine Clr Calc Pharmacy 107.2 ml/min; Est GFR (African American) 113.8 ml/min; Est GFR (Non-African American) 98.2 ml/min; Magnesium 1.8 mg/dl (1.7-2.4); Potassium 3.4 mmol/L (3.5-5.1)
[2022-03-04] MEDS: FLUTICASONE PROPIONATE NA SPR 16 GM BTL NAE SCH (08:01)
[2022-03-04] MEDS: PANTOprazole 40 MG TAB PO SCH (08:02)
[2022-03-04] MEDS: POTASSIUM CHLORIDE CRTAB 20 MEQ TABCR PO SCH ×2 (08:02→20:50)
[2022-03-04] MEDS: CETIRIZINE HCL 10 MG TABLET PO SCH (08:02)
[2022-03-04] MEDS: VENLAFAXINE HCL XR 150 MG CAPXR PO SCH (08:02)
[2022-03-04] MEDS: NYSTATIN SUSP 500,000 U/5 ML UDC PO SCH ×4 (08:03→20:48)
[2022-03-04] MEDS: MAGNESIUM OXIDE 400 MG TAB PO SCH ×2 (08:23→20:51)
--- NOTE | 2022-03-04 09:37 | Medical Student Consultation ---
Date of Consultation March 04, 2022 Assessment & Plan 1) SVT * Currently on cardizem (diltiazem hcl) 30mg PO TID and metoprolol 25 mg BID * Potassium still low this morning at 3.4, extra dose of potassium chloride 40meq ordered, and daily dosing increased from 20 to 40 meq * Magnesium today was 1.8 which is under goal, extra dose of 400mg PO magnesium oxide given this morning. Continue on 400mg magnesium oxide BID * Patient will require close monitoring of electrolytes and repletion to maintain potassium between 4 and 5 and magnesium greater than 2 2) Alcohol withdrawal: manage per primary team. No cardiac contraindication for amitriptyline and ativan 3) Obstructive sleep apnea * Patient states that she recently had a sleep study and was diagnosed with obstructive sleep apnea but has not gotten her c-pap yet. Follow-up with PCP or sleep specialist outpatient due to possible effect of OZZIE on blood pressure and cardiac arrhythmias. History of Present Illness Attending Physician: Skip Curry MD History of Present Illness The patient is a 56 year old female with a history of alcohol use disorder treated with antabuse and multiple previous admissions for withdrawal with SVT, mood disorders, ductal carcinoma in situ treated with tamoxifen, who is currently admitted for alcohol withdrawal. On the , 2 days go, she had an episode of sustained SVT and was started on amiodarone after 2 doses of adenosine. She was switched to diltiazem bolus and drip yesterday as the preferred treatment for SVT and reverted to sinus rhythm in the 60s. Electrolyte repletion with magnesium oxide 400mg PO BID and potassium chloride 20 meq PO BID was also started yesterday to manage SVT. No vtach noted during this admission. Overnight patient had HR of 120 per telemetry for 42 minutes before spontaneously reverting to sinus rhythm in the 60s. Likely SVT with differential of a junctional tachycardia. Patient was not aware of this episode and was likely sleeping at the time. Cardizem drip was stopped at 4am due to heart rate dropping to the 50s and PO cardizem was started instead. She still has coarse trembling, sweating, anxiety, and last had brief visual hallucinations last night. Denies chest pain. Has some shortness of breath that is worse on exertion which is unchanged for the last few weeks to months. Allergies Allergy/AdvReac Type Severity Reaction Status Date / Time levothyroxine Allergy Severe facial Unverified 03/01/22 18:48 swelling minocycline [From Minocin] Allergy Mild Rash Verified 03/01/22 18:48 Sulfa (Sulfonamide Allergy Unknown PT DOESN'T Verified 03/01/22 18:48 Antibiotics) REMEMBER REACTION Home Medications Medication Instructions Recorded Confirmed Type amitriptyline 50 mg tablet 50 mg PO HS 12/13/19 03/01/22 History omeprazole magnesium 20 mg 20 mg PO QAM 12/13/19 03/01/22 History tablet,delayed release (Prilosec OTC) gabapentin 100 mg capsule 100 mg PO TID 04/10/20 03/01/22 History tamoxifen 20 mg tablet 20 mg PO QAM 06/14/20 03/01/22 History desvenlafaxine succinate 50 mg 100 mg PO QAM 02/17/22 03/01/22 History tablet,extended release 24 hr (Pristiq) atorvastatin 20 mg tablet 20 mg PO HS 02/18/22 03/01/22 History cetirizine 10 mg tablet (Zyrtec) 10 mg PO QAM 02/18/22 03/01/22 History fluticasone propionate 50 1 spray INTRANASAL DAILY 02/18/22 03/01/22 History mcg/actuation nasal spray,suspension naltrexone 50 mg tablet 100 mg PO BID 02/18/22 03/01/22 History metoprolol succinate 25 mg 25 mg PO BID 03/01/22 03/01/22 History tablet,extended release 24 hr montelukast 10 mg tablet 10 mg PO QPM 03/01/22 03/01/22 History propranolol 20 mg tablet 20 mg PO BID 03/01/22 03/01/22 History Patient History Medical History (Updated 03/02/22 @ 13:54 by Lilly Harrison MD) Alcoholism Anxiety Asthma hx Breast hematoma after procedure Left breast after biopsy in 11/2019 Depression Depression 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 Huynh) Rosacea Ventricular tachycardia from alcohol withdrawl Surgical History H/O colonoscopy 05/01/2016 - perianal skin tag, normal colon H/O esophagogastroduodenoscopy 07/04/2009 - EUS exam- No choledocholithiasis, No masses appreciated in the entire pancreas. EGD exam- Normal examined duodenum. Bilious gastric fluid. M ild gastritis ? bilious etiology. Bx neg for H. pylori. Prominent fold just distal to GEJ. Bx- Squamocolumnar mucosa with mild carditis and hyperplastic changes. Negative for intestinal metaplasia and dysplasia. Medium sized hiatus hernia." On 03/10/17 15:26 Rita España wrote "07/04/2009- EUS exam- No choledocholithiasis, No masses appreciated in the entire pancreas. EGD exam- Normal examined duodenum. Bilious gastric fluid. Mild gastritis ? bilious etiology. This was biopsied to r/o H Pylori. Prominent fold just distal to GEJ. This was biopsied. Medium sized hiatus hernia." History of breast biopsy 11/30/2019 - Left Breast 02/08/2020 - Right Breast History of breast lump/mass excision 02/15/2020 - Right Breast History of dilation and curettage 2003 - s/p miscarriage History of lumpectomy of left breast 02/15/2020 History of lumpectomy of right breast 03/28/2020 History of mandibular surgery 1986 History of surgery 05/07/2016 - Anal Tag Removal S/P laparoscopic cholecystectomy 02/23/2004 Family History Mother Breast cancer, Onset Age: 76 Currently battling metastatic breast cancer Grandmother (Paternal) , Passed age 93 of stomach cancer No problems noted. Grandfather (Maternal) , Passed age 72 of colon cancer No problems noted. Father , Passed age 67 of complications from menigioma No problems noted. Aunt Breast cancer, Onset Age: 34 Alive and well Aunt Breast cancer, Onset Age: 62 alive and well Aunt Breast cancer, Onset Age: 62 Alive and well Brother Stroke Dementia Sister No problems noted. Son No problems noted. 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 Still unable to type on phone due to tremors Psychiatric: feeling anxious, no visual, auditory or tactile hallucinations currently Physical Exam Constitutional: sitting up, in no acute distress Respiratory: normal respiratory effort, clear to auscultation bilaterally Cardiovascular: RRR no murmurs or gallops, no S3 or S4 Gastrointestinal (Abdomen): active bowel sounds, abdomen soft to palpation, no masses, no guarding Skin: warm Neurologic: coarse tremors of the hands when extended. Alert and oriented x3 Psychiatric: anxious affect Results & Data ([facility]) Vital Signs (Past 12 Hours) Vital Signs Temp Pulse Pulse Resp BP BP Pulse Ox 03/04/22 08:39 61 03/04/22 08:00 36.5 C 67 16 124/73 99 03/04/22 06:18 100/68 03/04/22 05:14 36.4 C L 67 18 90/58 L 98 03/03/22 23:46 37.0 C 73 20 100/66 97 03/03/22 22:30 69 03/03/22 22:24 36.6 C 68 20 140/66 97
[2022-03-04] MEDS: dilTIAZem HCL 30 MG TAB PO SCH ×3 (09:59→20:52)
[2022-03-04] MEDS: METOPROLOL SUCC 25MG EXT REL TAB PO SCH ×2 (09:59→20:53)
[2022-03-04] MEDS: FOLIC ACID 1 MG TAB PO SCH (10:36)
[2022-03-04] MEDS: LORazepam 1 mg IV INJ IV PRN ×2 (10:54→17:29)
[2022-03-04] MEDS ORDERED: POTASSIUM CHLORIDE CRTAB 20 MEQ TABCR PO STA (10:56)
[2022-03-04] MEDS ORDERED: MAGNESIUM OXIDE 400 MG TAB PO ONE (10:57)
--- NOTE | 2022-03-04 12:57 | Cardiology Progress Note ---
Date of Service March 04, 2022 Assessment & Plan (1) Alcohol withdrawal: (2) Supraventricular tachycardia: (3) Abnormal TSH: (4) Dehydration: (5) Elevated transaminase level: (6) Elevated glucose level: (7) Mood disorder: (8) Ventricular tachycardia: Plan: Ms. Perla does carry a history of SVT and possible VT during acute alcohol withdrawal. cardizem gtt held due to bradycardia, po cardizem resumed cont po metoprolol We will defer treatment of alcohol withdrawal to the primary team Patient will require close monitoring of electrolytes and repletion to maintain potassium between 4 and 5 and magnesium greater than 2 Potassium magnesium remained below goal today. I increased supplementation. Admission and Anticipated Discharge Date Admission Date: March 01, 2022 Subjective Patient seen and examined, chart reviewed. States that she's feeling much better today. No further palitations. Nerves are ok. Telemetry reviewed: Normal sinus rhythm with approx 40mins of asymptomatic PSVT at 120 Review of Systems Review of Systems: All systems reviewed & are unremarkable except as noted in HPI & below Physical Exam Physical Exam: Physical Exam: General: Awake, alert and oriented x 3. Moderately anxious during examination and diaphoretic HEENT: Normocephalic, atraumatic. Pupils equal, round and reactive to light and accommodation. Extraocular muscles are intact. Anicteric sclera. Moist mucous membranes. Neck: No JVD. No bruit. Cardiovascular: Regular but tachycardic. No S-4. Normal S-1 and S-2. No S-3. No murmurs, rubs or gallops. Pulmonary: Clear to auscultation bilaterally. No rales, rhonchi, or wheezing. Abdomen: Bowel sounds x 4, soft. No rebound, guarding or tenderness. No organomegaly. Extremities: No clubbing, cyanosis or edema. +2 pedal pulses bilaterally. Skin: Warm and dry. Results & Data ([facility]) Vital Signs (Past 12 Hours) Vital Signs Temp Pulse Pulse Resp BP BP Pulse Ox 03/04/22 11:00 36.5 C 74 18 133/63 97 03/04/22 08:39 61 03/04/22 08:00 36.5 C 67 16 124/73 99 03/04/22 06:18 100/68 03/04/22 05:14 36.4 C L 67 18 90/58 L 98 (1) Alcohol withdrawal Complication of substance-induced condition: uncomplicated Qualified Code(s): F10.230 - Alcohol dependence with withdrawal, uncomplicated
--- NOTE | 2022-03-04 14:32 | Hospitalist Progress Note ---
Date of Service March 04, 2022 Assessment & Plan (1) Supraventricular tachycardia: Plan: Now resolved, no further runs of SVT's (2) Alcohol dependence: Plan: Alcohol abuse/dependance- patient voluntarily stopped her antabuse this week and resumed drinking - she comes in wanting to quit Outpatient follow-up with a detox /rehab center (3) Alcohol withdrawal: Plan: Patient currently with withdrawl symptoms of tachycardia, tremors - Continue [facility] protocol -seizure and fall precaution (4) Elevated transaminase level: Plan: Secondary to ETOH abuse ~ 2:1 ratio - Has had higher levels in the past - Trend mild icterus (5) Mood disorder: Plan: On Elavil, Pristiq at home, however, Prsitrue is non formulry will replace with effexor 75mg today, then 150mg from tomorrow morning (6) Hypothyroidism: Plan: 3.3- not on medication (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 Plan: continue to monitor Admission and Anticipated Discharge Date Admission Date: March 01, 2022 Subjective patient seen and examined, feels better, although still with some tremors, however, palpitations have resolved Review of Systems Review of Systems: All systems reviewed are negative, apart from the ones contained in the history. Physical Exam Physical Exam: The patient is awake, alert and oriented 3, well developed and well nourished, normocephalic and atraumatic, lying in bed and in no acute distress. HEENT--PERRL, EOMI, mucous membranes and oropharynx mildly dry Neck--supple. No JVD. No bruits. Thyroid normal, trachea midline, no adenopathy. Heart--normal S1 and S2. No murmurs, rubs or gallops. Lungs--clear bilaterally, no respiratory distress, no accessory muscle use. Abdomen--normal bowel sounds and soft. Mild epigastric and left sided abdominal pain Extremities--no cyanosis or clubbing. No edema. Dermatologic--normal skin turgor, normal color, no abnormal lymph nodes, no rash. Neurologic--cranial nerves II through XII grossly intact. coarse tremors Rheumatologic--normal range of motion. Psychiatric--normal affect. Results & Data Results & Data ([facility]) Vital Signs (Past 12 Hours) Vital Signs Temp Pulse Pulse Resp BP BP Pulse Ox 03/04/22 11:00 97.7 F 74 18 133/63 97 03/04/22 08:39 61 03/04/22 08:00 97.7 F 67 16 124/73 99 03/04/22 06:18 100/68 03/04/22 05:14 97.5 F L 67 18 90/58 L 98 Laboratory Results Laboratory Results - last 24 hr 03/03/22 03/03/22 03/04/22 18:12 19:31 06:22 WBC 3.59 L RBC 3.99 L Hgb 12.5 Hct 36.2 L MCV 90.7 MCH 31.3 MCHC 34.5 RDW Std Deviation 43.8 RDW Coeff of Marybeth 13.3 Plt Count 106 L MPV 9.4 Immature Gran % (Auto) 0.3 Neut % (Auto) 53.1 Lymph % (Auto) 30.1 [place] % (Auto) 10.3 Eos % (Auto) 5.6 Baso % (Auto) 0.6 Neut # (Auto) 1.91 Lymph # (Auto) 1.08 L [place] # (Auto) 0.37 Eos # (Auto) 0.20 Baso # (Auto) 0.02 Immature Gran # (Auto) 0.01 Sodium 136 Potassium 3.8 Chloride 101 Carbon Dioxide 27 Anion Gap 8 BUN 10 Creatinine 0.99 Est Cr Clr Drug Dosing 75.8 Est GFR ( Amer) 74.9 Est GFR (Non-Af Amer) 64.6 BUN/Creatinine Ratio 10.1 Glucose 131 H Calcium 8.7 Magnesium 03/04/22 06:22 WBC RBC Hgb Hct MCV MCH MCHC RDW Std Deviation RDW Coeff of Marybeth Plt Count MPV Immature Gran % (Auto) Neut % (Auto) Lymph % (Auto) [place] % (Auto) Eos % (Auto) Baso % (Auto) Neut # (Auto) Lymph # (Auto) [place] # (Auto) Eos # (Auto) Baso # (Auto) Immature Gran # (Auto) Sodium 137 Potassium 3.4 L Chloride 105 Carbon Dioxide 25 Anion Gap 7 BUN 10 Creatinine 0.70 Est Cr Clr Drug Dosing 107.2 Est GFR ( Amer) 113.8 Est GFR (Non-Af Amer) 98.2 BUN/Creatinine Ratio 14.3 Glucose 105 H Calcium 8.1 L Magnesium 1.8 PG Care Time/CCT Total # of Minutes Spent Total Time Spent with Patient: Total time spent is greater than 50% in coordination of care (as documented) at patient's floor/unit and/or counseling patient: Coding Level of Care Code 80883 Subseq Hosp Care Lvl 2 Diagnoses Supraventricular tachycardia I47.1 Alcohol dependence F10.239 Complication of substance-induced condition: with unspecified complication Substance use status: in withdrawal Alcohol withdrawal F10.239 Complication of substance-induced condition: with unspecified complication Elevated transaminase level R74.01 Mood disorder F39 Hypothyroidism E03.9 Ductal carcinoma in situ (DCIS) of left breast D05.12 Time Spent (min) 35 (1) Alcohol dependence Complication of substance-induced condition: with unspecified complication Substance use status: in withdrawal Qualified Code(s): F10.239 - Alcohol dependence with withdrawal, unspecified (2) Alcohol withdrawal Complication of substance-induced condition: with unspecified complication Qualified Code(s): F10.239 - Alcohol dependence with withdrawal, unspecified
--- NOTE | 2022-03-04 15:20 | Communication Note ---
Date of Service: March 04, 2022 contacted by hospitalist service with question re: Dimas given FDA mood warnings. My understanding was she was on the medication for a few years and ob viously ETOH is primary factor. Apparently restarted last month. Reviewed that if other option for treating her allergies would be preferred, unlikely major contributor at this time but cannot exclude.
[2022-03-04] MEDS: ATORVASTATIN 20 MG TAB PO SCH (20:51)
[2022-03-04] MEDS: MONTELUKAST SODIUM 10 MG TABLET PO SCH (20:51)
[2022-03-04] MEDS: AMITRIPTYLINE HCL 50 MG TAB PO SCH (20:53)
[2022-03-04] MEDS: ENOXAPARIN INJ 40 MG/0.4 ML SYR SQ SCH (20:54)
--- NOTE | 2022-03-04 21:46 | Electrocardiogram Report ---
Test Reason : Blood Pressure : / mmHG Vent. Rate : 133 BPM Atrial Rate : 141 BPM P-R Int : 000 ms QRS Dur : 090 ms QT Int : 298 ms P-R-T Axes : 000 022 262 degrees QTc Int : 443 ms Poor data quality, interpretation may be adversely affected Supraventricular tachycardia Abnormal ECG When compared with ECG of 02-MAR-2022 07:56, Supraventricular tachycardia has replaced Sinus rhythm T wave inversion now evident in Inferior leads Nonspecific T wave abnormality now evident in Lateral leads Confirmed by Duran Sauceda ([id number]) on 03/04/2022 9:46:00 PM Referred By: REFERRED SELF Confirmed By:Duran Sauceda
[2022-03-05] MEDS: THIAMINE HCL 500 MG in SODIUM CHLORIDE 0.9% 50 ML IV SCH ×2 (00:57→08:18)
[2022-03-05 06:47] LABS: BUN Creatinine Ratio 13.7 (10-20); Calcium 8.7 mg/dl (8.5-10.1); Creatinine Clr Calc Pharmacy 100.4 ml/min; Est GFR (African American) 108.2 ml/min; Est GFR (Non-African American) 93.4 ml/min; Potassium 4.1 mmol/L (3.5-5.1)
[2022-03-05 07:57] VITALS: TEMP 97.7
[2022-03-05] MEDS: POTASSIUM CHLORIDE CRTAB 20 MEQ TABCR PO SCH (08:13)
[2022-03-05] MEDS: METOPROLOL SUCC 25MG EXT REL TAB PO SCH (08:13)
[2022-03-05] MEDS: dilTIAZem HCL 30 MG TAB PO SCH (08:13)
[2022-03-05] MEDS: FOLIC ACID 1 MG TAB PO SCH (08:13)
[2022-03-05] MEDS: NYSTATIN SUSP 500,000 U/5 ML UDC PO SCH (08:14)
[2022-03-05] MEDS: CETIRIZINE HCL 10 MG TABLET PO SCH (08:14)
[2022-03-05] MEDS: PANTOprazole 40 MG TAB PO SCH (08:14)
[2022-03-05] MEDS: MAGNESIUM OXIDE 400 MG TAB PO SCH (08:14)
[2022-03-05] MEDS: FLUTICASONE PROPIONATE NA SPR 16 GM BTL NAE SCH (08:14)
[2022-03-05] MEDS: VENLAFAXINE HCL XR 150 MG CAPXR PO SCH (08:15)
[2022-03-05 12:19] VITALS: BP 117/83; O2SAT 100
[2022-03-05 12:27] VITALS: PULSE 87
--- NOTE | 2022-03-05 14:55 | Discharge Summary ---
Date of Service March 05, 2022 Admission HPI Per Admitting Provider 56 YOF with past medical history of: ETOH abuse, withdrawal, SVT, DCIS (2019) now on maintenance Tamoxifen, HLD, HTN, Mood disorder. Patient was previously sober for 7 months while on Antabuse. The patient voluntarily stopped this on Thursday this week and started to drink ETOH. She drinks 1-2 bottles of wine per day. She voluntarily came to the [facility] today, she had routine labs drawn to include urine tox screen as well as ETOH level. Her ETOH level is 311 and her last drink was ~ 1100 this am. She would like to stop drinking and does not think she can do this on her own. Patient has history of difficult withdraw with hallucinations and tachycardias, but does not recall seizures. She was given 1mg Ativan and 50mg of Librium PO by the [facility] and bananna bag with 100mg thiamine and 1mg of folic acid. Patient will be admitted to PCU for withdraw monitoring and treatment, will increase her Thiamine to 500mg IV TID with an additional Thiamine following her Banannag Bag, will load her with Valium and continue with Librium. Patient is alert oriented and cooperative at this time. She is accompanied by her friend. As she is only 2 years out from her DCIS breast cancer will not place on Phenobarbitol as this reacts with CYP3a Tamoxifen- which would reduce the effectiveness of the Tamoxifen. Principal Diagnosis alcohol intoxication Alcohol withdrawal Discharge Exam The patient is awake, alert and oriented 3, well developed and well nourished, normocephalic and atraumatic, lying in bed and in no acute distress. HEENT--PERRL, EOMI, mucous membranes and oropharynx mildly dry Neck--supple. No JVD. No bruits. Thyroid normal, trachea midline, no adenopathy. Heart--normal S1 and S2. No murmurs, rubs or gallops. Lungs--clear bilaterally, no respiratory distress, no accessory muscle use. Abdomen--normal bowel sounds and soft. Mild epigastric and left sided abdominal pain Extremities--no cyanosis or clubbing. No edema. Dermatologic--normal skin turgor, normal color, no abnormal lymph nodes, no rash. Neurologic--cranial nerves II through XII grossly intact. coarse tremors Rheumatologic--normal range of motion. Psychiatric--normal affect. Discharge Data Allergies Allergy/AdvReac Type Severity Reaction Status Date / Time levothyroxine Allergy Severe facial Unverified 03/01/22 18:48 swelling minocycline [From Minocin] Allergy Mild Rash Verified 03/01/22 18:48 Sulfa (Sulfonamide Allergy Unknown PT DOESN'T Verified 03/01/22 18:48 Antibiotics) REMEMBER REACTION Consultations 03/01/22 19:45 ED Decision to Admit Stat 03/01/22 21:47 Consult Psychiatry Routine 03/02/22 09:00 Consult Cardiology Routine Hospital Course (1) Supraventricular tachycardia: Now resolved, no further runs of SVT's continue PO Cardizem (2) Alcohol dependence: Alcohol abuse/dependance- patient voluntarily stopped her antabuse this week and resumed drinking - she comes in wanting to quit Outpatient follow-up with a detox /rehab center (3) Alcohol withdrawal: Patient currently with withdrawl symptoms of tachycardia, tremors - Continue [facility] protocol -seizure and fall precaution (4) Elevated transaminase level: Secondary to ETOH abuse ~ 2:1 ratio - Has had higher levels in the past - Trend mild icterus (5) Mood disorder: On Elavil, Pristiq at home, however, Prsitrue is non formulry will replace with effexor 75mg today, then 150mg from tomorrow morning (6) Hypothyroidism: 3.3- not on medication (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 continue to monitor Total Time Total Time Spent Total Time Spent (In Minutes): 35 Discharge Plan Discharge Items Patient Disposition: Home - Self-Care Reason For Visit: ETOH WITHDRAWL Discharge Diagnosis: alcohol intoxication and withdrawal Condition on Discharge: Fair Activity: Resume your previous activity Non-emergency contact: Primary Care Provider Call non-emergency contact if: you have any medication questions and your symptoms worsen Follow-up/Referrals: Latoya Valerio [Primary Care Provider] - 03/13/22 2:10 pm (Please follow up with Latoya Valerio on 03/13/22. Please arrive to the office at 2:10 pm for your appointment. If you are unable to keep this appointment, please call the office to reschedule at [phone]. ) Diet: Regular Addtl Attending Provider Instructions: please continue to follow up with outpatient alcohol rehab Pending Studies at Discharge: No Stand-Alone Forms: My [facility], Smoking Cessation, Suicide Prevention Resources Medications and DC Order Prescriptions: New diltiazem HCl 30 mg Tablet 30 mg PO TID 30 Days Qty: 90 RF: 0 Continued amitriptyline 50 mg tablet 50 mg PO HS RF: 0 omeprazole magnesium [Prilosec OTC] 20 mg Tablet,Delayed Release (Dr/Ec) 20 mg PO QAM RF: 0 gabapentin 100 mg capsule 100 mg PO TID RF: 0 tamoxifen 20 mg tablet 20 mg PO QAM RF: 0 desvenlafaxine succinate [Pristiq] 50 mg tablet extended release 24 hr 100 mg PO QAM RF: 0 atorvastatin 20 mg Tablet 20 mg PO HS RF: 0 cetirizine [Zyrtec] 10 mg Tablet 10 mg PO QAM RF: 0 naltrexone 50 mg Tablet 100 mg PO BID RF: 0 fluticasone propionate 50 mcg/actuation [place],Suspension 1 spray INTRANASAL DAILY RF: 0 metoprolol succinate 25 mg tablet extended release 24 hr 25 mg PO BID RF: 0 montelukast 10 mg tablet 10 mg PO QPM RF: 0 propranolol 20 mg tablet 20 mg PO BID RF: 0 Discharge Orders: Discharge Order (Routine); Ordered 03/05/22 Ordered By: Skip Curry Admission Data Admit Date/Time: 03/01/22 20:36 Attending Provider: Skip Curry Admit Provider: Aditi Rollins Primary Care Provider: Latoya Valerio Other Providers: Aditi Rollins ; Sailaja Ahmadi ; Lilly Harrison ; Rubina Bryan ; Harpreet Healy Other Interventions: Discharge Summary Assessment (RN) Last Done: 03/05/22 12:21 Coding Level of Care Code D/C DAY MANAGEMENT >30 MINS Diagnoses Supraventricular tachycardia I47.1 Alcohol dependence F10.239 Complication of substance-induced condition: with unspecified complication Substance use status: in withdrawal Alcohol withdrawal F10.239 Complication of substance-induced condition: with unspecified complication Elevated transaminase level R74.01 Mood disorder F39 Hypothyroidism E03.9 Ductal carcinoma in situ (DCIS) of left breast D05.12 Time Spent (min) 35
== END 2022-03-05 13:11 | disposition home or self-care (01) | DRG 897 ==
LOC: ED 17:02 → 2S 20:36 → SUATTDRO 20:36 → 2S 21:40
DX: E03.9 Hypothyroidism, unspecified; Z88.1 Allergy status to other antibiotic agents; F10.239 Alcohol dependence with withdrawal, unspecified; F41.9 Anxiety disorder, unspecified; E87.1 Hypo-osmolality and hyponatremia; Z88.8 Allergy status to other drugs, medicaments and biological substances; J45.909 Unspecified asthma, uncomplicated; Z92.21 Personal history of antineoplastic chemotherapy; Z88.2 Allergy status to sulfonamides; I47.1 Supraventricular tachycardia; Z92.3 Personal history of irradiation; E78.5 Hyperlipidemia, unspecified; G47.00 Insomnia, unspecified; G43.909 Migraine, unspecified, not intractable, without status migrainosus; F43.10 Post-traumatic stress disorder, unspecified; F10.229 Alcohol dependence with intoxication, unspecified; F32.A Depression, unspecified; Z85.3 Personal history of malignant neoplasm of breast; E86.0 Dehydration; Z90.49 Acquired absence of other specified parts of digestive tract; E87.6 Hypokalemia

== ENCOUNTER 2022-05-12 18:31 | Observation (INO) ==
[2022-05-12] MEDS ORDERED: GLUCAGON 1 ML IV ONE (19:20)
[2022-05-12] MEDS ORDERED: ONDANSETRON INJ 2 MG/ML 2 ML VIAL IV STA ×2 (19:20→21:08)
[2022-05-12] MEDS ORDERED: SODIUM CHLORIDE 0.9% 1000ML 1,000 ML IV ONE (19:20)
[2022-05-12] MEDS ORDERED: FAMOTIDINE 20MG IV PUSH 20 MG/5 ML SYR IV STA (19:20)
--- NOTE | 2022-05-12 19:24 | Emergency Department Note ---
Impression & Plan Esophageal obstruction due to food impaction, Vomiting ED Provider Note NAME: KAUSHAL ROBLEDO AGE: 56 SEX: F : 1965 ARRIVES VIA: Walk-In INFORMANT: Patient ED PROVIDER(S): Parish Parikh DO CHIEF COMPLAINT: can't swallow HPI: Patient is a 56-year-old female with a past medical history of alcohol abuse, palpitations, SVT, esophageal obstruction that presents the ER following eating a piece of chicken around 4 PM today. She has been unable to eat or drin k anything since then. She has been vomiting. She cannot tolerate her secretions. She denies any headache or change in vision. No chest pain or shortness of breath with exception of some burning in her throat and has a feels like she cannot swallow. Pain is about a 7 out of 10. No dysuria urgency or frequency. No other exacerbating or remitting factors. She does admit to drinking alcohol around 3 PM today. She notes that she is a recovering alcoholic and only drank yesterday and today. ROS: See above HPI for pertinent positives & negatives. A total of 10 systems reviewed and were otherwise negative. PAST MEDICAL HISTORY:See Below PAST SURGICAL HISTORY:See Below FAMILY HISTORY:See Below SOCIAL HISTORY:See Below HOME MEDICATIONS:See Below ALLERGIES:See Below VITALS:See Below PHYSICAL EXAMINATION: GENERAL: Sitting up in bed, alert, distress, nontoxic spitting out her secretions EYE EXAM: normal conjunctiva. OROPHARYNX: no exudate, no erythema, lips, buccal mucosa, and tongue normal and mucous membranes are moist NECK: supple, no nuchal rigidity, no adenopathy, non-tender LUNGS: Clear to auscultation. Normal chest wall mechanics HEART: no murmurs, S1 normal and S2 normal ABDOMEN: abdomen soft, non-tender, normo-active bowel sounds, no masses, no rebound or guarding. UPPER EXTREMITIES: upper extremities are grossly normal. LOWER EXTREMITIES: No pitting edema. NEURO EXAM: Normal sensorium, cranial nerves II-XII grossly intact, normal speech, no gross weakness of arms, no gross weakness of legs. MEDICAL DECISION MAKING: Patient is a 56-year-old female who presents the ER following eating a piece of chicken and not being able to swallow or handle her secretions since 4 PM. IV was established blood work is obtained. Labs show no significant leukocytosis or anemia. BMP along with LFTs bilirubin was unremarkable. Alcohol was elevate d at 88. COVID was negative. Chest x-ray was clean. Patient was given IV fluids, Zofran, Ativan and glucagon without improvement. Initially called Dr. Cavanaugh as he was on-call. He eventually called us back and informed us that it was a [facility] patient as it has been scoped in the ER by [facility] previously. Contacted Dr. Hendricks he was gracious enough to come in and take the patient to the OR for scope/endoscopy. Triage Nursing notes reviewed. Limited review of prior medical records performed Vital Signs: reviewed and remarkable for no significant abnormalities Differential diagnosis: Differential diagnoses includes but is not limited to gastritis, peptic ulcer disease, GERD, gallbladder disease, pancreatitis, small bowel obstruction, acute coronary syndrome, pericarditis, ischemic bowel, irritable bowel disease, irritable bowel syndrome, appendicitis, diverticulitis, malignancy, hernia, urinary tract infection, torsion, /ectopic (if female), perforation, trauma, infectious. ER treatment provided: See below Diagnostics interpreted by me: ECG: none Laboratory studies: As stated above and show below. 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 Huynh) Rosacea Ventricular tachycardia from alcohol withdrawl Surgical History H/O colonoscopy 05/01/2016 - perianal skin tag, normal colon H/O esophagogastroduodenoscopy 07/04/2009 - EUS exam- No choledocholithiasis, No masses appreciated in the entire pancreas. EGD exam- Normal examined duodenum. Bilious gastric fluid. Mild gastritis ? bilious etiology. Bx neg for H. pylori. Prominent fold just distal to GEJ. Bx- Squamocolumnar mucosa with mild carditis and hyperplastic changes. Negative for intestinal metaplasia and dysplasia. Medium sized hiatus hernia." On 03/10/17 15:26 Rita España wrote "07/04/2009- EUS exam- No choledocholithiasis, No masses appreciated in the entire pancreas. EGD exam- Normal examined duodenum. Bilious gastric fluid. Mild gastritis ? bilious etiology. This was biopsied to r/o H Pylori. Prominent fold just distal to GEJ. This was biopsied. Medium sized hiatus hernia." History of breast biopsy 11/30/2019 - Left Breast 02/08/2020 - Right Breast History of breast lump/mass excision 02/15/2020 - Right Breast History of dilation and curettage 2003 - s/p miscarriage History of lumpectomy of left breast 02/15/2020 History of lumpectomy of right breast 03/28/2020 History of mandibular surgery 1986 History of surgery 05/07/2016 - Anal Tag Removal S/P laparoscopic cholecystectomy 02/23/2004 Family History Mother Breast cancer, Onset Age: 76 Currently battling metastatic breast cancer Grandmother (Paternal) , Passed age 93 of stomach cancer No problems noted. Grandfather (Maternal) , Passed age 72 of colon cancer No problems noted. Father , Passed age 67 of complications from menigioma No problems noted. Aunt Breast cancer, Onset Age: 34 Alive and well Aunt Breast cancer, Onset Age: 62 alive and well Aunt Breast cancer, Onset Age: 62 Alive and well Brother Stroke Dementia Sister No problems noted. Son No problems noted. 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 occupational status: 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 Feels Safe at Home: Yes Childhood Exposure to Second-Hand Smoke: Yes (Mom ) caffeine: Yes (daily ) during the past year weight has: remained stable Dental Care, Regularly: Yes Assistive Devices: None Allergies Allergies Allergy/AdvReac Type Severity Reaction Status Date / Time levothyroxine Allergy Severe facial Unverified 03/01/22 18:48 swelling minocycline [From Minocin] Allergy Mild Rash Verified 03/01/22 18:48 Sulfa (Sulfonamide Allergy Unknown PT DOESN'T Verified 03/01/22 18:48 Antibiotics) REMEMBER REACTION Home Meds Home Medications Medication Instructions Recorded Confirmed amitriptyline 50 mg tablet 50 mg PO 12/13/19 03/01/22 omeprazole magnesium 20 mg 20 mg PO QAM 12/13/19 03/01/22 tablet,delayed release (Prilosec OTC) gabapentin 100 mg capsule 100 mg PO TID 04/10/20 03/01/22 tamoxifen 20 mg tablet 20 mg PO QAM 06/14/20 03/01/22 desvenlafaxine succinate 50 mg 100 mg PO QAM 02/17/22 03/01/22 tablet,extended release 24 hr (Pristiq) atorvastatin 20 mg tablet 20 mg PO 02/18/22 03/01/22 cetirizine 10 mg tablet (Zyrtec) 10 mg PO QAM 02/18/22 03/01/22 fluticasone propionate 50 1 spray INTRANASAL DAILY 02/18/22 03/01/22 mcg/actuation nasal spray,suspension naltrexone 50 mg tablet 100 mg PO BID 02/18/22 03/01/22 metoprolol succinate 25 mg 25 mg PO BID 03/01/22 03/01/22 tablet,extended release 24 hr montelukast 10 mg tablet 10 mg PO QPM 03/01/22 03/01/22 propranolol 20 mg tablet 20 mg PO BID 03/01/22 03/01/22 Results & Data (ED) Vital Signs Vital Signs - 24 hr 05/12/22 18:39 05/12/22 19:47 05/12/22 21:21 Temperature Temperature Source Pulse Rate 88 Pulse Rate [Right Finger] 86 89 Pulse Rhythm Regular Pulse Rhythm [Right Finger] Pulse Strength Normal Pulse Strength [Right Finger] Respiratory Rate 20 20 20 Respiratory Effort / Characteristics Non-Labored Spontaneous Non-Labored Respiratory Depth Normal Normal Respiratory Pattern Regular Blood Pressure 125/92 Blood Pressure [Right Arm] 142/86 H 142/92 H Blood Pressure Mean 103 Blood Pressure Mean [Right Arm] 104 108 Blood Pressure Position Sitting Blood Pressure Position [Right Arm] Sitting Pulse Oximetry 98 98 100 Oxygen Delivery Method Room Air Room Air Room Air Sepsis Recent Fever Within 48 Hours No Sepsis New/Unexplained Change in Mental Status No Sepsis Action Taken by Nursing No Action Required 05/12/22 23:50 05/13/22 00:09 Temperature 36.4 C L Temperature Source Oral Pulse Rate Pulse Rate [Right Finger] 88 85 Pulse Rhythm Pulse Rhythm [Right Finger] Regular Pulse Strength Pulse Strength [Right Finger] Normal Respiratory Rate 20 20 Respiratory Effort / Characteristics Non-Labored Spontaneous Non-Labored Spontaneous Respiratory Depth Normal Respiratory Pattern Regular Blood Pressure Blood Pressure [Right Arm] 135/92 135/92 Blood Pressure Mean Blood Pressure Mean [Right Arm] 106 106 Blood Pressure Position Blood Pressure Position [Right Arm] Sitting Pulse Oximetry 96 100 Oxygen Delivery Method Room Air Room Air Sepsis Recent Fever Within 48 Hours Sepsis New/Unexplained Change in Mental Status Sepsis Action Taken by Nursing Laboratory Data Result diagrams: 05/12/22 19:20 05/12/22 Unknown Lab Results 05/12/22 05/12/22 05/12/22 Range/Units 19:20 19:20 19:51 WBC 7.99 (4.8-10.8) K/uL RBC 4.76 (4.2-5.4) M/uL Hgb 14.8 (12.0-16.0) g/dL Hct 42.7 (37-47) % MCV 89.7 (80-100) fL MCH 31.1 (25-34) pg MCHC 34.7 (32-36) g/dL RDW Std Deviation 42.8 (36.4-46.3) fL RDW Coeff of Marybeth 13.0 (11.5-14.5) % Plt Count 300 (130-400) K/uL MPV 9.5 (7.4-10.4) fL Neutrophils % (Manual) 68.6 % Lymphocytes % (Manual) 20.9 % Monocytes % (Manual) 7.0 % Eosinophils % (Manual) 2.6 % Basophils % (Manual) 0.9 % Neutrophils # (Manual) 5.48 (1.4-6.5) K/uL Total Absolute Neuts 5.48 (1.4-6.5) K/uL Lymphocytes # (Manual) 1.67 (1.2-3.4) K/uL Total Abs Lymphocytes 1.67 (1.2-3.4) K/uL Monocytes # (Manual) 0.56 (0.11-0.59) K/uL Eosinophils # (Manual) 0.21 (0-0.5) K/uL Basophils # (Manual) 0.07 (0-0.2) K/uL RBC Morphology Unremarkable Sodium (136-145) mmol/L Potassium (3.5-5.1) mmol/L Chloride (98-107) mmol/L Carbon Dioxide (21-32) mmol/L Anion Gap (3-11) BUN (6-23) mg/dl Creatinine (0.6-1.2) mg/dl Est Cr Clr Drug Dosing ml/min Est GFR ( Amer) ml/min Est GFR (Non-Af Amer) ml/min BUN/Creatinine Ratio (10-20) Glucose (70-99(Fasting)) mg/dl Calcium (8.5-10.1) mg/dl Total Bilirubin (0.2-1.0) mg/dl AST (13-39) U/L ALT (7-52) U/L Alkaline Phosphatase (34-104) U/L Total Protein (6.0-8.3) gm/dl Albumin (3.4-5.0) gm/dl Globulin (2.5-4.0) gm/dl Albumin/Globulin Ratio (0.9-2) Ethyl Alcohol mg/dL 88.6 H (<10.0) mg/dl SARS-CoV-2, RNA, NAAT NEGATIVE (NEGATIVE) 05/12/22 Range/Units Unknown WBC (4.8-10.8) K/uL RBC (4.2-5.4) M/uL Hgb (12.0-16.0) g/dL Hct (37-47) % MCV (80-100) fL MCH (25-34) pg MCHC (32-36) g/dL RDW Std Deviation (36.4-46.3) fL RDW Coeff of Marybeth (11.5-14.5) % Plt Count (130-400) K/uL MPV (7.4-10.4) fL Neutrophils % (Manual) % Lymphocytes % (Manual) % Monocytes % (Manual) % Eosinophils % (Manual) % Basophils % (Manual) % Neutrophils # (Manual) (1.4-6.5) K/uL Total Absolute Neuts (1.4-6.5) K/uL Lymphocytes # (Manual) (1.2-3.4) K/uL Total Abs Lymphocytes (1.2-3.4) K/uL Monocytes # (Manual) (0.11-0.59) K/uL Eosinophils # (Manual) (0-0.5) K/uL Basophils # (Manual) (0-0.2) K/uL RBC Morphology Sodium 137 (136-145) mmol/L Potassium 4.4 (3.5-5.1) mmol/L Chloride 99 (98-107) mmol/L Carbon Dioxide 24 (21-32) mmol/L Anion Gap 14 H (3-11) BUN 15 (6-23) mg/dl Creatinine 1.04 (0.6-1.2) mg/dl Est Cr Clr Drug Dosing 69.0 ml/min Est GFR ( Amer) 70.5 ml/min Est GFR (Non-Af Amer) 60.9 ml/min BUN/Creatinine Ratio 14.4 (10-20) Glucose 99 (70-99(Fasting)) mg/dl Calcium 9.3 (8.5-10.1) mg/dl Total Bilirubin 0.8 (0.2-1.0) mg/dl AST 29 (13-39) U/L ALT 26 (7-52) U/L Alkaline Phosphatase 61 (34-104) U/L Total Protein 8.1 (6.0-8.3) gm/dl Albumin 4.9 (3.4-5.0) gm/dl Globulin 3.2 (2.5-4.0) gm/dl Albumin/Globulin Ratio 1.5 (0.9-2) Ethyl Alcohol mg/dL (<10.0) mg/dl SARS-CoV-2, RNA, NAAT (NEGATIVE) Administered Medications Discontinued Medications Glucagon (Glucagen) 1 mls @ 1 mls/min IV ONE ONE Stop: 05/12/22 19:21 Last Admin: 05/12/22 19:44 Dose: 1 mls/min Documented by: [id number] Sodium Chloride (Nss 1000ml) 1,000 mls @ 999 mls/hr IV .Q1H1M ONE Stop: 05/12/22 20:20 Last Infusion: 05/12/22 21:20 Dose: 0 mls/hr Documented by: [id number] Admin: 05/12/22 19:45 Dose: 999 mls/hr Documented by: [id number] Famotidine (Pepcid 20mg Iv Push) 20 mg in 5 mls @ 2.5 mls/min IV NOW STA Stop: 05/12/22 19:21 Last Admin: 05/12/22 19:45 Dose: 2.5 mls/min Documented by: [id number] Lorazepam 0.5 mg/ Syringe 0.5 mls @ 2 mls/min IV NOW STA Stop: 05/12/22 21:09 Last Admin: 05/12/22 21:18 Dose: 2 mls/min Documented by: [id number] Lorazepam (Lorazepam 2 Mg/1 Ml Vial) Confirm Administered Dose 1 mg .ROUTE .STK- MED ONE Stop: 05/12/22 21:13 Last Admin: 05/12/22 21:19 Dose: Not Given Documented by: [id number] Ondansetron HCl (Ondansetron Inj 2 Mg/Ml 2 Ml Vial) 4 mg IV NOW STA Stop: 05/12/22 19:21 Last Admin: 05/12/22 19:44 Dose: 4 mg Documented by: [id number] Ondansetron HCl (Ondansetron Inj 2 Mg/Ml 2 Ml Vial) 4 mg IV NOW STA Stop: 05/12/22 21:09 Last Admin: 05/12/22 21:18 Dose: 4 mg Documented by: [id number] Imaging Data Radiologist's Impression: Chest X-Ray 05/12/22 19:19 XR chest 1V portable CLINICAL HISTORY: Chicken stuck in throat TECHNIQUE: Single frontal radiograph of the chest was obtained. Comparison: Comparison is made to chest radiograph 03/01/2022 FINDINGS: No lines and tubes are seen. The cardiomediastinal silhouette is normal. The lungs are clear. No evidence of pleural effusion or pneumothorax. IMPRESSION: No acute chest disease. ACT 112: Negative or not required by law. Electronically signed by: Henry Solis M.D. 05/12/2022 8:05 PM Discharge Plan Visit Data Chief Complaint: Food Bolus Stated Complaint: FOOD STUCK IN THROAT ED Provider: Parish Parikh Discharge Problem: Esophageal obstruction due to food impaction, Vomiting Patient Disposition: Admitted As Inpatient Discharge Instructions Interventions: ED Discharge Assessment Last Done: 05/13/22 00:00 Discharge Problem: Vomiting Qualifiers: Vomiting type: unspecified Nausea presence: unspecified Qualified Code(s): R11.10 - Vomiting, unspecified
[2022-05-12 20:06] LABS: Hematocrit (blood only) 42.7 % (37-47); Hemoglobin 14.8 g/dL (12.0-16.0); Mean Corpuscular Hemoglobin 31.1 pg (25-34); Mean Corpuscular Hgb Conc 34.7 g/dL (32-36); Mean Corpuscular Volume 89.7 fL (80-100); Mean Platelet Volume 9.5 fL (7.4-10.4); Platelet Count 300 K/uL (130-400); RDW Standard Deviation 42.8 fL (36.4-46.3); Red Blood Count 4.76 M/uL (4.2-5.4); White Blood Count 7.99 K/uL (4.8-10.8)
--- NOTE | 2022-05-12 20:07 | XRay Report ---
XR chest 1V portable CLINICAL HISTORY: Chicken stuck in throat TECHNIQUE: Single frontal radiograph of the chest was obtained. Comparison: Comparison is made to chest radiograph 03/01/2022 FINDINGS: No lines and tubes are seen. The cardiomediastinal silhouette is normal. The lungs are clear. No evid ence of pleural effusion or pneumothorax. IMPRESSION: No acute chest disease. ACT 112: Negative or not required by law. Electronically signed by: Henry Solis M.D. 05/12/2022 8:05 PM
[2022-05-12 20:17] LABS: ALC (manual) 1.67 K/uL (1.2-3.4); ANC (manual) 5.48 K/uL (1.4-6.5); Basophils # (manual) 0.07 K/uL (0-0.2); Basophils % (manual) 0.9 %; Eosinophils # (manual) 0.21 K/uL (0-0.5); Eosinophils % (manual) 2.6 %; Lymphocytes # (manual) 1.67 K/uL (1.2-3.4); Lymphocytes % (manual) 20.9 %; Monocytes # (manual) 0.56 K/uL (0.11-0.59); Neutrophils # (manual) 5.48 K/uL (1.4-6.5); Neutrophils % (manual) 68.6 %; RBC Morphology Unremarkable
[2022-05-12 20:31] LABS: Albumin Globulin Ratio 1.5 (0.9-2); Albumin Level 4.9 gm/dl (3.4-5.0); BUN Creatinine Ratio 14.4 (10-20); Bilirubin,Total 0.8 mg/dl (0.2-1.0); Calcium 9.3 mg/dl (8.5-10.1); Est GFR (African American) 70.5 ml/min; Est GFR (Non-African American) 60.9 ml/min; Globulin 3.2 gm/dl (2.5-4.0); Potassium 4.4 mmol/L (3.5-5.1); Total Protein 8.1 gm/dl (6.0-8.3)
[2022-05-12] MEDS ORDERED: LORazepam 0.5 MG in SYRINGE 0.25 ML IV STA (21:08)
[2022-05-12] MEDS ORDERED: LORazepam 2 MG/1 ML VIAL ONE (21:12)
--- NOTE | 2022-05-12 23:54 | Gastrointestinal Consultation ---
Date of Consultation May 12, 2022 Assessment & Plan (1) Dysphagia: Food bolus impaction. EGD now for food bolus removal. Procedure and risks explained to patient which include but not limited to medication reaction, bleeding, perforation, aspiration, and missed lesions. Mentioned increased risks particularly of bleeding and perforation given food impaction but alternative of chest surgery to remove is not really a good option. I, Jose Penny MD have spent 35 minutes of discrete time performing the activities of this visit which include but are not limited to review of the medical record, obtaining a history, physical exam, and entering information in the electronic record. History of Present Illness Reason for Consultation: Food bolus obstruction. Requesting Physician: DR Parikh History of Present Illness CC food stuck HPI Pt with history of dysphagia, EGD 12/2020 food bolus impaction food removed no obvious pathology. Colonosocpy sone 02/19/22 for screening showed redundant colon. Pt states she is recovering alcohoic but recently started drinking again. She states she was eating rotisserie chicken at 4 pm and threw up some but unable to handle saliva since. Some fullness in upper chest and nausea but no marvin pain. Admits she was eating fast and not very aware of food stuck prior to eating more food. No abd pain. Allergies Allergy/AdvReac Type Severity Reaction Status Date / Time levothyroxine Allergy Severe facial Unverified 03/01/22 18:48 swelling minocycline [From Minocin] Allergy Mild Rash Verified 03/01/22 18:48 Sulfa (Sulfonamide Allergy Unknown PT DOESN'T Verified 03/01/22 18:48 Antibiotics) REMEMBER REACTION Home Medications Medication Instructions Recorded Confirmed Type amitriptyline 50 mg tablet 50 mg PO 12/13/19 03/01/22 History omeprazole magnesium 20 mg 20 mg PO QAM 12/13/19 03/01/22 History tablet,delayed release (Prilosec OTC) gabapentin 100 mg capsule 100 mg PO TID 04/10/20 03/01/22 History tamoxifen 20 mg tablet 20 mg PO QAM 06/14/20 03/01/22 History desvenlafaxine succinate 50 mg 100 mg PO QAM 02/17/22 03/01/22 History tablet,extended release 24 hr (Pristiq) atorvastatin 20 mg tablet 20 mg PO HS 02/18/22 03/01/22 History cetirizine 10 mg tablet (Zyrtec) 10 mg PO QAM 02/18/22 03/01/22 History fluticasone propionate 50 1 spray INTRANASAL DAILY 02/18/22 03/01/22 History mcg/actuation nasal spray,suspension naltrexone 50 mg tablet 100 mg PO BID 02/18/22 03/01/22 History metoprolol succinate 25 mg 25 mg PO BID 03/01/22 03/01/22 History tablet,extended release 24 hr montelukast 10 mg tablet 10 mg PO QPM 03/01/22 03/01/22 History propranolol 20 mg tablet 20 mg PO BID 03/01/22 03/01/22 History Patient History Medical History (Updated 03/02/22 @ 13:54 by Lilly Harrison MD) Alcoholism Anxiety Asthma hx Breast hematoma after procedure Left breast after biopsy in 11/2019 Depression Depression 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 Huynh) Rosacea Ventricular tachycardia from alcohol withdrawl Surgical History H/O colonoscopy 05/01/2016 - perianal skin tag, normal colon H/O esophagogastroduodenoscopy 07/04/2009 - EUS exam- No choledocholithiasis, No masses appreciated in the entire pancreas. EGD exam- Normal examined duodenum. Bilious gastric fluid. Mild gastritis ? bilious etiology. Bx neg for H. pylori. Prominent fold just distal to GEJ. Bx- Squamocolumnar mucosa with mild carditis and hyperplastic changes. Negative for intestinal metaplasia and dysplasia. Medium sized hiatus hernia." On 03/10/17 15:26 Rita España wrote "07/04/2009- EUS exam- No choledocholithiasis, No masses appreciated in the entire pancreas. EGD exam- Normal examined duodenum. Bilious gastric fluid. Mild gastritis ? bilious etiology. This was biopsied to r/o H Pylori. Prominent fold just distal to GEJ. This was biopsied. Medium sized hiatus hernia." History of breast biopsy 11/30/2019 - Left Breast 02/08/2020 - Right Breast History of breast lump/mass excision 02/15/2020 - Right Breast History of dilation and curettage 2003 - s/p miscarriage History of lumpectomy of left breast 02/15/2020 History of lumpectomy of right breast 03/28/2020 History of mandibular surgery 1985 History of surgery 05/07/2016 - Anal Tag Removal S/P laparoscopic cholecystectomy 02/23/2004 Family History Mother Breast cancer, Onset Age: 76 Currently battling metastatic breast cancer Grandmother (Paternal) , Passed age 93 of stomach cancer No problems noted. Grandfather (Maternal) , Passed age 72 of colon cancer No problems noted. Father , Passed age 67 of complications from menigioma No problems noted. Aunt Breast cancer, Onset Age: 34 Alive and well Aunt Breast cancer, Onset Age: 62 alive and well Aunt Breast cancer, Onset Age: 62 Alive and well Brother Stroke Dementia Sister No problems noted. Son No problems noted. 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 Feels Safe at Home: Yes Childhood Exposure to Second-Hand Smoke: Yes (Mom ) caffeine: Yes (daily ) during the past year weight has: remained stable Dental Care, Regularly: Yes Assistive Devices: None Review of Systems Review of Systems: All systems reviewed & are unremarkable except as noted in HPI & below Physical Exam Constitutional: WD/WN, vitals as above Eyes: PERRL, conjunctivae normal, anicteric sclerae ENMT: Ears: no hearing impairment Neck: normal visual inspection and trachea midline Respiratory: normal respiratory effort, lungs clear to auscultation Cardiovascular: RRR, no murmur, no edema Gastrointestinal (Abdomen): normal bowel sounds, soft, nontender, no hepatosplenomegaly Skin: normal turgor Neurologic: PERRL, EOMI, accommodation nl, no face palsy, no dysarthria Psychiatric: A+Ox3, euthymic affect Results & Data ([facility]) Vital Signs (Past 12 Hours) Vital Signs Pulse Pulse Resp BP BP Pulse Ox 05/12/22 21:21 89 20 142/92 H 100 05/12/22 19:47 86 20 142/86 H 98 05/12/22 18:39 88 20 125/92 98
[2022-05-13] MEDS ORDERED: SUCCINYLCHOLINE CHLORIDE 20 MG/ML 10 ML VIAL IV ONE (00:08)
[2022-05-13] MEDS ORDERED: fentaNYL citrate 100 MCG/2 ML VIAL ONE (00:08)
[2022-05-13] MEDS ORDERED: PROPOFOL IV EMULSION 10 MG/ML 20 ML VIAL IV ONE ×3 (00:08→01:24)
[2022-05-13] MEDS ORDERED: HYDROmorphone INJ 2 MG/ML SYR/VIAL IV PRN (00:26)
[2022-05-13] MEDS ORDERED: ePHEDrine sulfate 50 MG/ML AMP IV PRN (00:26)
[2022-05-13] MEDS ORDERED: ONDANSETRON INJ 2 MG/ML 2 ML VIAL IV PRN (00:26)
[2022-05-13] MEDS ORDERED: fentaNYL citrate 100 MCG/2 ML VIAL IV PRN (00:26)
[2022-05-13] MEDS ORDERED: ATROPINE SULFATE 0.1 MG/ML 10ML SYR IV PRN (00:26)
--- NOTE | 2022-05-13 00:26 | Anesthesiology Consultation ---
Date of Service May 13, 2022 Assessment & Plan ASA [id number] Proposed Anesthesia Anesthesia Type: General Risk / Benefits Reviewed With: PT / POA / Parent / Guardian, Accepts Plan and Informed Consent Obtained History Surgery Operation Date: 05/13/22 00:30 Proposed Procedures p EGD, Food Bolus - Jose Penny Height/Weight Height: 5 ft 6 in Weight: 87.7 kg Allergies Allergy/AdvReac Type Severity Reaction Status Date / Time levothyroxine Allergy Severe facial Unverified 03/01/22 18:48 swelling minocycline [From Minocin] Allergy Mild Rash Verified 03/01/22 18:48 Sulfa (Sulfonamide Allergy Unknown PT DOESN'T Verified 03/01/22 18:48 Antibiotics) REMEMBER REACTION Medications Home Medications Medication Instructions Recorded Confirmed Last Taken amitriptyline 50 mg tablet 50 mg PO HS 12/13/19 03/01/22 02/28/22 omeprazole magnesium 20 mg 20 mg PO QAM 12/13/19 03/01/22 02/28/22 tablet,delayed release (Prilosec OTC) gabapentin 100 mg capsule 100 mg PO TID 04/10/20 03/01/22 02/28/22 tamoxifen 20 mg tablet 20 mg PO QAM 06/14/20 03/01/22 02/28/22 desvenlafaxine succinate 50 mg 100 mg PO QAM 02/17/22 03/01/22 02/28/22 tablet,extended release 24 hr (Pristiq) atorvastatin 20 mg tablet 20 mg PO 02/18/22 03/01/22 02/28/22 cetirizine 10 mg tablet (Zyrtec) 10 mg PO QAM 02/18/22 03/01/22 02/28/22 fluticasone propionate 50 1 spray INTRANASAL DAILY 02/18/22 03/01/22 02/28/22 mcg/actuation nasal spray,suspension naltrexone 50 mg tablet 100 mg PO BID 02/18/22 03/01/22 02/28/22 metoprolol succinate 25 mg 25 mg PO BID 03/01/22 03/01/22 02/28/22 tablet,extended release 24 hr montelukast 10 mg tablet 10 mg PO QPM 03/01/22 03/01/22 02/28/22 propranolol 20 mg tablet 20 mg PO BID 04/08/1403/01/22 02/28/22 NPO Date Last Intake of Fluids: 05/13/22 Time Last Intake of Fluids: 16:00 Date Last Intake of Solids: 05/13/22 Time Last Intake of Solids: 16:00 Past Medical History Medical History Alcoholism Anxiety Asthma hx Breast hematoma after procedure Left breast after biopsy in 11/2019 Depression Depression 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 Huynh) Rosacea Ventricular tachycardia from alcohol withdrawl Exercise / Class Metabolic Activity II 4-5 Yardwork/Stairs/Walk up hill Past Family History Family History Mother Breast cancer, Onset Age: 76 Currently battling metastatic breast cancer Grandmother (Paternal) , Passed age 93 of stomach cancer No problems noted. Grandfather (Maternal) , Passed age 72 of colon cancer No problems noted. Father , Passed age 67 of complications from menigioma No problems noted. Aunt Breast cancer, Onset Age: 34 Alive and well Aunt Breast cancer, Onset Age: 62 alive and well Aunt Breast cancer, Onset Age: 62 Alive and well Brother Stroke Dementia Sister No problems noted. Son No problems noted. Other Family history non-contributory Past Surgical History Surgical History H/O colonoscopy 05/01/2016 - perianal skin tag, normal colon H/O esophagogastroduodenoscopy 07/04/2009 - EUS exam- No choledocholithiasis, No masses appreciated in the entire pancreas. EGD exam- Normal examined duodenum. Bilious gastric fluid. Mild gastritis ? bilious etiology. Bx neg for H. pylori. Prominent fold just distal to GEJ. Bx- Squamocolumnar mucosa with mild carditis and hyperplastic changes. Negative for intestinal metaplasia and dysplasia. Medium sized hiatus hernia." On 03/10/17 15:26 Rita España wrote "07/04/2009- EUS exam- No choledocholithiasis, No masses appreciated in the entire pancreas. EGD exam- Normal examined duodenum. Bilious gastric fluid. Mild gastritis ? bilious etiology. This was biopsied to r/o H Pylori. Prominent fold just distal to GEJ. This was biopsied. Medium sized hiatus hernia." History of breast biopsy 11/30/2019 - Left Breast 02/08/2020 - Right Breast History of breast lump/mass excision 02/15/2020 - Right Breast History of dilation and curettage 2003 - s/p miscarriage History of lumpectomy of left breast 02/15/2020 History of lumpectomy of right breast 03/28/2020 History of mandibular surgery 1986 History of surgery 05/07/2016 - Anal Tag Removal S/P laparoscopic cholecystectomy 02/23/2004 Past Anesthesia History No Hx of Anesthesia Complications and No Family Hx of Anesthesia Complications History of PONV No Hx of PONV and No Hx of Motion Sickness Social History Smoking Status: Never smoker Hx Alcohol Use: Yes Alcohol type: wine alcohol intake frequency: other Hx Substance Use: No Review of Systems denies fever/cough/ colds/ chest pain/ SOB/ OZZIE denies OZZIE Physical Exam Vital Signs Last Vital Signs Temp 36.4 C L 05/13/22 00:09 Pulse 85 05/13/22 00:09 Resp 20 05/13/22 00:09 BP 135/92 05/13/22 00:09 Pulse Ox 100 05/13/22 00:09 ENMT Mouth: no TMJ abnormality and no dentition abnormality Thyromental Distance: > or= 3.5 Finger Breadths Mallampati Class: II Neck neck extension not limited Respiratory normal respiratory effort; no respiratory distress Auscultation: lungs clear to auscultation bilaterally Cardiovascular Rate/Rhythm: regular rate and regular rhythm Neurologic moves all extremities Psychiatric Orientation: alert and oriented x 3 Testing Laboratory Results 05/12/22 19:20 05/12/22 Unknown
--- NOTE | 2022-05-13 01:12 | GI REPORT ---
Patient Name: Brigid Perla Procedure Date: 05/13/2022 12:38 AM Date of : 1965 Admit Type: Emergency Department Age: 56 Gender: Female Attending MD: Jose Penny MD Procedure: Upper GI endoscopy Providers: Jose Penny MD Referring MD: Parish Parikh Md Indications: Dysphagia, Esophageal food bolus impaction Medicines: General Anesthesia Complications: No immediate complications. Estimated blood loss: None. Estimated Blood Loss: Estimated blood loss: none. Procedure: Pre-Anesthesia Assessment: - The risks and benefits of the procedure and the sedation options and risks were discussed with the patient. All questions were answered and informed consent was obtained. After obtaining informed consent, the endoscope was passed under direct vision. Throughout the procedure, the patient's blood pressure, pulse, and oxygen saturations were monitored continuously. The Endoscope was introduced through the mouth, and advanced to the second part of duodenum. The upper GI endoscopy was accomplished without difficulty. The patient tolerated the procedure well. Procedure and risks explained to patient which include but not limited to medication reaction, bleeding, perforation, aspiration , and missed lesions. Judicious gas insufflation was used and gas removal done on the way out. The lumen was always visualized when advancing the scope. Prep was good. Washes and suctioning used as needed to get good visualization of the mucosa. Retroflexion to look at the fundus and cardia of the stomach and GE junction was done. Findings: Food was found in the middle third of the esophagus and in the lower third of the esophagus. Multiple pieces of chicken removed from esophagus using Caesar device and pulling up and out of the mouth. Remaining piece when positioning Caesar was pushed gently through GE junction into the stomach. Estimated blood loss: none. Esophagogastric landmarks were identified: the Z-line was found at 40 cm from the incisors. Moderately severe esophagitis was found in the lower third of the esophagus. A moderate Schatzki ring was found at the gastroesophageal junction. Striped mildly erythematous mucosa was found in the gastric antrum. The examined duodenum was normal. The exam was otherwise without abnormality. Impression: - Food in the middle third of the esophagus and in the lower third of the esophagus. Removal was successful. - Esophagogastric landmarks identified. - Moderately severe erosive esophagitis. - Moderate Schatzki ring. - Erythematous mucosa in the antrum. - Normal examined duodenum. - The examination was otherwise normal. Recommendation: - Discharge patient to home (ambulatory). - Patient has a contact number available for emergencies. The signs and symptoms of potential delayed complications were discussed with the patient. Return to normal activities tomorrow. Written discharge instructions were provided to the patient. - Continue Omprazole daily. Recommend outpt f/u in GI office with repeat EGD with biopsied for eosinophilic esophagitis and dilatation vs biopsy to break ring. Small pieces of food and chew food well. Jose Penny M.D. Jose Penny MD 05/13/2022 1:11:41 AM This report has been signed electronically. Note Initiated On: 05/13/2022 12:38 AM Number of Addenda: 0 I attest to the content of the Intraoperative Record and orders documented therein, exceptions below {[id number]}
[2022-05-13] MEDS ORDERED: PROPOFOL IV EMULSION 10 MG/ML 100 ML VIAL IV ONE (01:35)
--- NOTE | 2022-05-13 01:54 | Critical Care Consultation ---
Date of Consultation May 13, 2022 Assessment & Plan (1) Respiratory failure: Reason Critically Ill: 56-year-old female presents to the ICU following EGD for food bolus with successful removal of esophageal impaction. Following EGD, patient was extubated but was weak and unable to protect airway and required emergent reintubation. Neuro - Sedation: Propofol/fentanyl Alcohol dependencepatient with EtOH of 80 on arrival to the ER. Admits to drinking approximately 2 bottles of wine per day. She is currently mechanically ventilated and sedated but will follow ROSALINDA S protocol. Monitor Cardiac - History of SVT. Currently in normal sinus rhythm Continuous monitoring on telemetry Respiratory - Mechanically ventilatedpatient with weakness and unable to successfully be weaned from vent, and required reintubation in OR. Suspect this is likely due to paralytics received in case. No acid-base imbalance or hypoxia. Did review chest x-ray which initially showed right mainstem the ET tube which was reduced by 3 cm to appropriate placement, suspect this is reason for what appears to be atelectasis on the left. We will continue with mechanical ventilation support until patient is able to be weaned from vent. GI - Food bolusresolved following EGD. Managed per GI LFTs within normal limits RENAL/LYTES - Creatinine stable no electrolyte abnormalities - Foleystrict I's and O's ENDO - Hypothyroidcontinue Synthroid HEME - H&H stable, monitor routine CBC ID - Notification for infectious process at this time LINES/IV ACCESS - Peripheral IVs DVT PROPHYLAXIS - SCDs] I have personally spent 40 minutes of critical care time in the direct management of this patient. This is a life/limb threatening event. This includes time spent evaluating patient, direct bedside care, chart review, placing orders, interpretation of diagnostic studies, discussion with consultants, patient, and family members, as well as other required patient management activities. This time is exclusive of all separately billable procedures, and teaching time and separate from and in addition to any other critical care service time. Thank you for allowing us to participate in the care of this patient. Please refer to my attending physician's documentation for any further recommendations. (2) Vomiting: (3) Anxiety: (4) Alcohol abuse: (5) Dysphagia: (6) Esophageal obstruction due to food impaction: Supervising Physician Co-Signing Physician Notes Agree with the note as above. Patient hemodynamically stable and saturating well on room air. Librium taper prescribed due to the patient's history of alcohol use and history of withdrawal. She is stable for discharge home. Discussed with hospitalist service. History of Present Illness Attending Physician: Jose Penny History of Present Illness Patient is a 56-year-old female with a history of anxiety, alcohol abuse, SVT, hypothyroidism, mood disorder, dysphagia who presented emergency department earlier this evening with complaints of vomiting and the feeling that she could not swallow. Patient states that she recently started drinking again. At approximately 4 PM she was eating rotisserie chicken and threw up some but has difficulty swallowing since. She then began having fullness in upper chest with nausea. She had a EtOH of 88, LFTs and BMP unremarkable. She received Zofran, Ativan in the ED. Patient went for EGD where she was found to have food in the middle third of the esophagus and lower third of the esophagus with multiple pieces of chicken removed, and moderately severe esophagitis. Following the procedure, patient was extubated but had difficulty breathing and required emergent reintubation. Patient did receive succinylcholine during the case and unable to reverse. She is now admitted to the ICU and plan to reassess ability to be weaned from the vent with SBT later this morning and continue with supportive measures with mechanical ventilation for the time being. Allergies Allergy/AdvReac Type Severity Reaction Status Date / Time levothyroxine Allergy Severe facial Unverified 03/01/22 18:48 swelling minocycline [From Minocin] Allergy Mild Rash Verified 03/01/22 18:48 Sulfa (Sulfonamide Allergy Unknown PT DOESN'T Verified 03/01/22 18:48 Antibiotics) REMEMBER REACTION Home Medications Medication Instructions Recorded Confirmed Type amitriptyline 50 mg tablet 50 mg PO HS 12/13/19 03/01/22 History omeprazole magnesium 20 mg 20 mg PO QAM 12/13/19 03/01/22 History tablet,delayed release (Prilosec OTC) gabapentin 100 mg capsule 100 mg PO TID 04/10/20 03/01/22 History tamoxifen 20 mg tablet 20 mg PO QAM 06/14/20 03/01/22 History desvenlafaxine succinate 50 mg 100 mg PO QAM 02/17/22 03/01/22 History tablet,extended release 24 hr (Pristiq) atorvastatin 20 mg tablet 20 mg PO 02/18/22 03/01/22 History cetirizine 10 mg tablet (Zyrtec) 10 mg PO QAM 02/18/22 03/01/22 History fluticasone propionate 50 1 spray INTRANASAL DAILY 02/18/22 03/01/22 History mcg/actuation nasal spray,suspension naltrexone 50 mg tablet 100 mg PO BID 02/18/22 03/01/22 History metoprolol succinate 25 mg 25 mg PO BID 03/01/22 03/01/22 History tablet,extended release 24 hr montelukast 10 mg tablet 10 mg PO QPM 03/01/22 03/01/22 History propranolol 20 mg tablet 20 mg PO BID 03/01/22 03/01/22 History Patient History Medical History Alcoholism Anxiety Asthma hx Breast hematoma after procedure Left breast after biopsy in 11/2019 Depression Depression 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 Huynh) Rosacea Ventricular tachycardia from alcohol withdrawl Surgical History H/O colonoscopy 05/01/2016 - perianal skin tag, normal colon H/O esophagogastroduodenoscopy 07/04/2009 - EUS exam- No choledocholithiasis, No masses appreciated in the entire pancreas. EGD exam- Normal examined duodenum. Bilious gastric fluid. Mild gastritis ? bilious etiology. Bx neg for H. pylori. Prominent fold just distal to GEJ. Bx- Squamocolumnar mucosa with mild carditis and hyperplastic changes. Negative for intestinal metaplasia and dysplasia. Medium sized hiatus hernia." On 03/10/17 15:26 Rita España wrote "07/04/2009- EUS exam- No choledocholithiasis, No masses appreciated in the entire pancreas. EGD exam- Normal examined duodenum. Bilious gastric fluid. Mild gastritis ? bilious etiology. This was biopsied to r/o H Pylori. Prominent fold just distal to GEJ. This was biopsied. Medium sized hiatus hernia." History of breast biopsy 11/30/2019 - Left Breast 02/08/2020 - Right Breast History of breast lump/mass excision 02/15/2020 - Right Breast History of dilation and curettage 2003 - s/p miscarriage History of lumpectomy of left breast 02/15/2020 History of lumpectomy of right breast 03/28/2020 History of mandibular surgery 1985 History of surgery 05/07/2016 - Anal Tag Removal S/P laparoscopic cholecystectomy 02/23/2004 Family History Mother Breast cancer, Onset Age: 76 Currently battling metastatic breast cancer Grandmother (Paternal) , Passed age 93 of stomach cancer No problems noted. Grandfather (Maternal) , Passed age 72 of colon cancer No problems noted. Father , Passed age 67 of complications from menigioma No problems noted. Aunt Breast cancer, Onset Age: 34 Alive and well Aunt Breast cancer, Onset Age: 62 alive and well Aunt Breast cancer, Onset Age: 62 Alive and well Brother Stroke Dementia Sister No problems noted. Son No problems noted. Other Family history non-contributory Social History Smoking Status: Never smoker Second Hand Exposure: No; Hx Alcohol Use: Yes Alcohol type: wine Alcohol Intake Frequency: 4 or More x per/Week Alcohol Intake Frequency Comment: 3 bottles of wine daily for past 30 days Hx Substance Use: No Preferred Language: Lithuanian Communication Ability: Effective Visual Impairment: Limited Hearing Ability: Normal Manager Clinic Required: No Beliefs That Will Affect Care: None marital status: Current Living Situation: Alone Current Living Situation Comment: adult son lives w/ her current occupational status: 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 Other Information That Helps Us Care for You: No Feels Safe at Home: Yes Safety Concerns: Feels Safe At This Time Childhood Exposure to Second-Hand Smoke: Yes (Mom ) caffeine: Yes (daily ) during the past year weight has: remained stable Dental Care, Regularly: Yes Assistive Devices: Glasses Review of Systems Review of Systems: Unobtainable due to endotracheal tube Physical Exam Constitutional: comfortable and + mechanically ventilated Eyes: PERRL, conjunctivae normal, anicteric sclerae ENMT: external ear and nose normal, oropharynx normal Neck: trachea midline, no thyromegaly Respiratory: normal respiratory effort, lungs clear to auscultation Symmetrical chest wall movement Cardiovascular: RRR, no murmur, no edema Heart Sounds: normal S1 and normal S2 Extremities: normal capillary refill; no edema Gastrointestinal (Abdomen): normal bowel sounds, soft, nontender, no hepatosplenomegaly Musculoskeletal: Unable to assess due to sedation/paralytics Skin: no rashes, warm and dry Neurologic: Unable to assess due to sedation/paralytics Psychiatric: Unable to assess due to sedation/paralytics Genitourinary: Indwelling [place] catheter present Results & Data Results & Data ([facility]) Vital Signs (Past 12 Hours) Vital Signs Temp Pulse Pulse Resp BP BP Pulse Ox 05/13/22 00:09 36.4 C L 85 20 135/92 100 05/12/22 23:50 88 20 135/92 96 05/12/22 21:21 89 20 142/92 H 100 05/12/22 19:47 86 20 142/86 H 98 05/12/22 18:39 88 20 125/92 98 Coding Level of Care Code Critical Care 1st 30-74 mins Diagnoses Vomiting R11.10 Nausea presence: unspecified Vomiting type: unspecified Anxiety F41.9 Alcohol abuse F10.10 Dysphagia R13.10 Esophageal obstruction due to food impaction K22.2; T18.128A Respiratory failure J96.90 (1) Vomiting Nausea presence: unspecified Vomiting type: unspecified Qualified Code(s): R11.10 - Vomiting, unspecified
[2022-05-13] MEDS ORDERED: PROPOFOL BOLUS FROM BAG IV PRN (02:01)
[2022-05-13] MEDS ORDERED: STAT IV Infusion **Titration per Protocol STA ×2 (02:01→02:17)
[2022-05-13] MEDS ORDERED: fentaNYL citrate 100 MCG/2 ML VIAL IV STA ×2 (02:11→02:17)
--- NOTE | 2022-05-13 02:11 | History & Physical Report ---
Date of Service May 13, 2022 Assessment & Plan (1) Difficult extubation: Plan: 56yo female with a PMH of EtOH use disorder, EtOH withdrawal, HTN, HLD, DCIS and hypothyroidism presented to the ED last night with a food bolus, now intubated and sedated in the ICU after failing extubation s/p EGD for food bolus removal. Inability to tolerate extubation Patient with failure of SBT after having an EGD performed to remove a food bolus Differential includes residual muscular blockade/sedative, polypharmacy, others Suspicious of poor neuromuscular blockade clearance 2/2 cirrhosis, however, LFT wnl Currently intubated and sedated Management per ICU EtOH use disorder Patient noted with long history of EtOH use disorder; serum EtOH in ED: 88 AWSS protocol with ativan IV, normosol @ 80mL/hr Management per ICU Upon discharge, consider discussing switching from oral to depot naltrexone HTN Management per ICU Food bolus Presented with food bolus s/p successful endoscopic removal Follow-up outpatient Moderate-severe endoesophagitis, moderate Schatzki ring Follow up outpatient Chronic conditions: HLD: holding home atorvastatin DCIS: holding home tamoxifen MDD: holding home desvenlafaxine, amitriptyline FEN: NPO, normosol @ 80mL/hr Code status: full code DVT ppx: SCDs Case management: consulted Dispo: ICU (2) Alcohol dependence: (3) Anxiety: (4) Ductal carcinoma in situ (DCIS) of right breast: (5) Esophageal obstruction due to food impaction: (6) Hypothyroidism: (7) Mood disorder: (8) Respiratory failure: History of Present Illness Primary Care Provider: Latoya Valerio 56yo female with a PMH of EtOH use disorder, EtOH withdrawal, SVT, DCIS, HTN, HLD, and hypothyroidism presented to the ED last night after getting a piece of chicken stuck in her throat. History is obtained through chart review as she is currently intubated and sedated. Patient was eating around 4pm yesterday when she got a piece of chicken stuck in her throat. In the ED, she reported vomiting, inability to eat or drink since 4pm, and some throat pain. She denied headache or changes in vision, CP, SOB, or dysuria. Patient denied any exacerbating or alleviating factors. Pain was rated at 7/10. Patient did note drinking alcohol at 3pm today; patient noted she is in recovery for alcohol use disorder, and had been abstinent until two days ago. In the ED, vitals were stable. CBC and CMP were unremarkable including LFTs and bilirubin. Serum EtOH was elevated to 88. CXR was unremarkable. Patient was given IVF, zofran, ativan, and glucagon without improvement. ED provider consulted GI (Dr. Penny) who performed an EGD, during which removal of food from the lower third of the esophagus was successful. However, upon extubation, patient's breathing was shallow and she remained somnolent, and so she was intubated, sedated, and transferred to the ICU. Allergies Allergy/AdvReac Type Severity Reaction Status Date / Time levothyroxine Allergy Severe facial Unverified 03/01/22 18:48 swelling minocycline [From Minocin] Allergy Mild Rash Verified 03/01/22 18:48 Sulfa (Sulfonamide Allergy Unknown PT DOESN'T Verified 03/01/22 18:48 Antibiotics) REMEMBER REACTION Home Medications Medication Instructions Recorded Confirmed Type amitriptyline 50 mg tablet 50 mg PO HS 12/13/19 03/01/22 History omeprazole magnesium 20 mg 20 mg PO QAM 12/13/19 03/01/22 History tablet,delayed release (Prilosec OTC) gabapentin 100 mg capsule 100 mg PO TID 04/10/20 03/01/22 History tamoxifen 20 mg tablet 20 mg PO QAM 06/14/20 03/01/22 History desvenlafaxine succinate 50 mg 100 mg PO QAM 02/17/22 03/01/22 History tablet,extended release 24 hr (Pristiq) atorvastatin 20 mg tablet 20 mg PO 02/18/22 03/01/22 History cetirizine 10 mg tablet (Zyrtec) 10 mg PO QAM 02/18/22 03/01/22 History fluticasone propionate 50 1 spray INTRANASAL DAILY 02/18/22 03/01/22 History mcg/actuation nasal spray,suspension naltrexone 50 mg tablet 100 mg PO BID 02/18/22 03/01/22 History metoprolol succinate 25 mg 25 mg PO BID 03/01/22 03/01/22 History tablet,extended release 24 hr montelukast 10 mg tablet 10 mg PO QPM 03/01/22 03/01/22 History propranolol 20 mg tablet 20 mg PO BID 03/01/22 03/01/22 History chlordiazepoxide HCl 10 mg capsule 10 mg PO UD #2 cap 05/13/22 Rx chlordiazepoxide HCl 25 mg capsule 25 mg PO UD #11 cap 05/13/22 Rx Past Med/Surg History Medical History Alcoholism Anxiety Asthma hx Breast hematoma after procedure Left breast after biopsy in 11/2019 Depression Depression 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 Huynh) Rosacea Ventricular tachycardia from alcohol withdrawl Surgical History H/O colonoscopy 05/01/2016 - perianal skin tag, normal colon H/O esophagogastroduodenoscopy 07/04/2009 - EUS exam- No choledocholithiasis, No masses appreciated in the entire pancreas. EGD exam- Normal examined duodenum. Bilious gastric fluid. Mild gastritis ? bilious etiology. Bx neg for H. pylori. Prominent fold just distal to GEJ. Bx- Squamocolumnar mucosa with mild carditis and hyperplastic changes. Negative for intestinal metaplasia and dysplasia. Medium sized hiatus hernia." On 03/10/17 15:26 Rita España wrote "07/04/2009- EUS exam- No choledocholithiasis, No masses appreciated in the entire pancreas. EGD exam- Normal examined duodenum. Bilious gastric fluid. Mild gastritis ? bilious etiology. This was biopsied to r/o H Pylori. Prominent fold just distal to GEJ. This was biopsied. Medium sized hiatus hernia." History of breast biopsy 11/30/2019 - Left Breast 02/08/2020 - Right Breast History of breast lump/mass excision 02/15/2020 - Right Breast History of dilation and curettage 2003 - s/p miscarriage History of lumpectomy of left breast 02/15/2020 History of lumpectomy of right breast 03/28/2020 History of mandibular surgery 1986 History of surgery 05/07/2016 - Anal Tag Removal S/P laparoscopic cholecystectomy 02/23/2004 Family History Mother Breast cancer, Onset Age: 76 Currently battling metastatic breast cancer Grandmother (Paternal) , Passed age 93 of stomach cancer No problems noted. Grandfather (Maternal) , Passed age 72 of colon cancer No problems noted. Father , Passed age 67 of complications from menigioma No problems noted. Aunt Breast cancer, Onset Age: 34 Alive and well Aunt Breast cancer, Onset Age: 62 alive and well Aunt Breast cancer, Onset Age: 62 Alive and well Brother Stroke Dementia Sister No problems noted. Son No problems noted. Other Family history non-contributory Social History Smoking Status: Never smoker Second Hand Exposure: No; Hx Alcohol Use: Yes Alcohol type: wine Alcohol Intake Frequency: 4 or More x per/Week Alcohol Intake Frequency Comment: 3 bottles of wine daily for past 30 days Hx Substance Use: No Preferred Language: Bulgarian Communication Ability: Effective Visual Impairment: Limited Hearing Ability: Normal Variety Saw Operator Required: No Beliefs That Will Affect Care: None marital status: Current Living Situation: Alone Current Living Situation Comment: adult son lives w/ her current occupational status: 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 Other Information That Helps Us Care for You: No Feels Safe at Home: Yes Safety Concerns: Feels Safe At This Time Childhood Exposure to Second-Hand Smoke: Yes (Mom ) caffeine: Yes (daily ) during the past year weight has: remained stable Dental Care, Regularly: Yes Assistive Devices: Glasses Review of Systems Review of Systems: Unobtainable due to ET tube and sedation Physical Exam Physical Exam: Constitutional: laying in ICU bed HEENT: ET tube in place, minimal blood-streaked noted CV: heart sounds distant Resp: lung sounds distant MSK: no gross deformities appreciated Neuro: sedated, E(2) V(NT) M(4) Results & Data Results & Data ([facility]) Vital Signs (Past 12 Hours) Vital Signs Temp Pulse Pulse Resp BP BP Pulse Ox 05/13/22 00:09 36.4 C L 85 20 135/92 100 05/12/22 23:50 88 20 135/92 96 05/12/22 21:21 89 20 142/92 H 100 05/12/22 19:47 86 20 142/86 H 98 05/12/22 18:39 88 20 125/92 98 Critical Care Time 40 minutes Supervising Physician Co-Signing Physician Notes Attending addendum: I have physically seen this patient, have supervised the medical residents activities, and agree with the H&P unless as otherwise noted. Assessment and Plan: Intubated patient status post food bolus extraction and then reintubation- Admit to ICU ICU team to manage ventilator Alcohol abuse- Patient reportedly drinks 2 bottles of wine daily If she remains in the hospital for more than 24 hours, will need activity AWSS protocol Food bolus/moderate-severe Endo esophagitis/Moderate Schatzki ring- Will ultimately need to be discharged on Protonix PPI twice daily,, following up closely with outpatient physicians in hospital placed on Protonix 40 mg IV twice daily Remaining orders and notations as noted Resident Activity Tracking Resident Involvement: Resident Care Provided and Prepress Proofer Coverage Note Care Provided: Adult Hospital Medicine (1) Alcohol dependence Complication of substance-induced condition: with unspecified complication Substance use status: in withdrawal Qualified Code(s): F10.239 - Alcohol dependence with withdrawal, unspecified
[2022-05-13] MEDS ORDERED: propofoL 1,000 MG/100 ML VIAL IV SCH (02:15)
[2022-05-13] MEDS ORDERED: fentaNYL citrate 2,500 MCG/250 ML BAG IV ONE (02:28)
[2022-05-13] MEDS ORDERED: fentaNYL citrate 2,500 MCG/250 ML BAG IV SCH (02:30)
[2022-05-13 02:50] LABS: iSTAT Allen Test Pass; iSTAT Art Bld Gas pCO2 Correct 33 mmHg (35-46); iSTAT Art Bld Gas pH Corrected 7.405 (7.35-7.45); iSTAT Arterial Blood Gas HCO3 21 meg/L (19-24); iSTAT Arterial Blood Gas pCO2 34 mmHg (35-46); iSTAT Arterial Blood Gas pO2 110 mmHg (80-95); iSTAT Arterial Blood Gas pO2 C 110; iSTAT Carbon Dioxide 22 mmol/L (24-31); iSTAT FiO2 40 %; iSTAT Hematocrit 38 % (37-47); iSTAT Hemoglobin 12.9 g/dl (12.0-16.0); iSTAT Potassium 4.1 mmol/L (3.3-5.0); iSTAT Site R Radial; iSTAT Sodium 135 mmol/L (135-144)
[2022-05-13] MEDS ORDERED: ICU PROTOCOL FOR HYPERGLYCEMIA PRN (02:58)
[2022-05-13] MEDS ORDERED: LORazepam 2 MG in SYRINGE 1 ML IV PRN (02:58)
[2022-05-13] MEDS ORDERED: ATIVAN IV ALCOHOL WITHDRAWL IV PRN (02:58)
[2022-05-13] MEDS ORDERED: LORazepam 3 MG in SYRINGE 1.5 ML IV PRN (02:58)
[2022-05-13] MEDS ORDERED: NORMOSOL-R 1,000 ML IV SCH (02:58)
[2022-05-13] MEDS ORDERED: LORazepam 1 MG in SYRINGE 0.5 ML IV PRN (02:58)
--- NOTE | 2022-05-13 03:17 | Communication Note ---
Date of Service: May 13, 2022 at 45 minutes post 100 mg succynylcholine, pt had four twitches with fade. pt TV 200mL and RR 20. pt was awake and following commands. tongue movement and hand squeeze. upon extubation, pt became minimally responsive after 2 min. Pt stopped breathing. pt made no effort. Pt was difficult to ventilate. I decided to reintubate with 100 mg of propofol and 30 mg of succynylcholine. Pt was stable after. I feel pt had a prolonged succynylcholine blockade. three hours later in icu, pt was writing and showing improved strength. pt extubate. pt doing well post op. i spoke and explained the situation
--- NOTE | 2022-05-13 03:25 | Anesthesiology Progress Note ---
Date of Service May 13, 2022 Anesthesia Post Procedure Vital Signs Vital Signs: Temp Pulse Pulse Resp BP BP Pulse Ox 05/13/22 01:45 18 05/13/22 00:09 36.4 C L 85 20 135/92 100 05/12/22 23:50 88 20 135/92 96 05/12/22 21:21 89 20 142/92 H 100 05/12/22 19:47 86 20 142/86 H 98 05/12/22 18:39 88 20 125/92 98 Pain Intensity Throat: Pain Intensity: 5 Transfer of Care Handoff Completed per policy Notes Mental Status: alert / awake / arousable and participated in evaluation Patient Amnestic to Procedure: Yes Nausea / Vomiting: adequately controlled Pain: adequately controlled Airway Patency, RR, SpO2: stable & adequate BP & HR: stable & adequate Hydration State: stable & adequate Anesthetic Complications: no major complications apparent and Pt Satisfied with anesthetic care
[2022-05-13 06:03] LABS: Basophils # (auto) 0.02 K/uL (0-0.2); Basophils % (auto) 0.1 %; Eosinophils # (auto) 0.03 K/uL (0-0.5); Eosinophils % (auto) 0.2 %; Hematocrit (blood only) 39.3 % (37-47); Hemoglobin 13.4 g/dL (12.0-16.0); Immature Granulocytes # (auto) 0.03 K/uL (0.00-0.02); Immature Granulocytes % (auto) 0.2 %; Lymphocytes % (auto) 9.7 %; Mean Corpuscular Hgb Conc 34.1 g/dL (32-36); Mean Platelet Volume 9.4 fL (7.4-10.4); Monocytes % (auto) 5.6 %; Neutrophils % (auto) 84.2 %; Platelet Count 249 K/uL (130-400); RDW Coefficient of Variation 13.2 % (11.5-14.5); Red Blood Count 4.32 M/uL (4.2-5.4); White Blood Count 14.38 K/uL (4.8-10.8)
[2022-05-13 06:33] LABS: Albumin Level 4.2 gm/dl (3.4-5.0); Bilirubin Direct 0.2 mg/dl (0-0.2); Bilirubin,Total 0.9 mg/dl (0.2-1.0); Calcium 8.3 mg/dl (8.5-10.1); Creatinine Clr Calc Pharmacy 81.5 ml/min; Est GFR (African American) 86.3 ml/min; Est GFR (Non-African American) 74.5 ml/min; Magnesium 1.8 mg/dl (1.7-2.4); Phosphorus 3.6 mg/dl (2.5-4.9); Potassium 3.9 mmol/L (3.5-5.1); Total Protein 7.1 gm/dl (6.0-8.3)
--- NOTE | 2022-05-13 07:07 | XRay Report ---
XR chest 1V portable HISTORY: 56 years-old Female Resp failure acute respiratory failure COMPARISON: Chest radiograph 05/13/2022 TECHNIQUE: Portable AP view of the chest FINDINGS: Cardiomediastinal and hilar silhouettes are within normal limits. Interval extubation. No pneumothora x, large pleural effusion or overt pulmonary edema. Mild persistent left basilar opacities with impro anisa aeration of the left midlung. The bones appear grossly intact. IMPRESSION: 1. Interval extubation. 2. Improved aeration of the left lung with mild persistent left basilar opacities. ACT 112: Negative or not required by law. The above report was generated using voice recognition software. It may contain grammatical, syntax o r spelling errors. Electronically signed by: Allen Moseley M.D. 05/13/2022 7:06 AM
--- NOTE | 2022-05-13 07:19 | Hospitalist Progress Note ---
Date of Service May 13, 2022 Assessment & Plan (1) Difficult extubation: Plan: 56yo female with a PMH of EtOH use disorder, EtOH withdrawal, HTN, HLD, DCIS and hypothyroidism presented to the ED last night with a food bolus, now intubated and sedated in the ICU after failing extubation s/p EGD for food bolus removal. Inability to tolerate extubation Patient with failure of SBT after having an EGD performed to remove a food bolus Differential includes residual muscular blockade/sedative, polypharmacy, others Suspicious of poor neuromuscular blockade clearance 2/2 cirrhosis, however, LFT wnl Currently intubated and sedated Management per ICU EtOH use disorder Patient noted with long history of EtOH use disorder; serum EtOH in ED: 88 AWSS protocol with ativan IV, normosol @ 80mL/hr Management per ICU Upon discharge, consider discussing switching from oral to depot naltrexone HTN Management per ICU Food bolus Presented with food bolus s/p successful endoscopic removal Follow-up outpatient Moderate-severe endoesophagitis, moderate Schatzki ring Follow up outpatient Chronic conditions: HLD: holding home atorvastatin DCIS: holding home tamoxifen MDD: holding home desvenlafaxine, amitriptyline FEN: NPO, normosol @ 80mL/hr Code status: full code DVT ppx: SCDs Case management: consulted Dispo: ICU (2) Alcohol dependence: (3) Anxiety: (4) Ductal carcinoma in situ (DCIS) of right breast: (5) Esophageal obstruction due to food impaction: (6) Hypothyroidism: (7) Mood disorder: (8) Respiratory failure: Admission and Anticipated Discharge Date Admission Date: May 13, 2022 Review of Systems Review of Systems: All systems reviewed & are unremarkable except as noted in HPI & below Physical Exam Physical Exam: General: Grossly A&O. NAD. Cooperative. HEENT: Atraumatic, normocephalic. EOMI Pulm: CTAB. -wheezes, -rales, -rhonchi. No respiratory distress. Cardiac: RRR, -mrg. Radial pulses intact and symmetrical. Abdominal: Nontender, nondistended, soft. Results & Data Results & Data ([facility]) Vital Signs (Past 12 Hours) Vital Signs Temp Pulse Pulse Resp BP BP BP 05/13/22 05:01 37.3 C 99 H 24 106/81 05/13/22 04:00 37.3 C 98 H 22 119/88 05/13/22 03:34 05/13/22 03:00 37.2 C 103 H 20 125/76 05/13/22 02:30 36.9 C 105 H 25 H 182/112 H 05/13/22 02:18 101 H 05/13/22 02:17 37.2 C 104 H 23 144/87 H 05/13/22 01:45 18 05/13/22 00:09 36.4 C L 85 20 135/92 05/12/22 23:50 88 20 135/92 05/12/22 21:21 89 20 142/92 H 05/12/22 19:47 86 20 142/86 H Pulse Ox Pulse Ox 05/13/22 05:01 95 05/13/22 04:00 98 05/13/22 03:34 100 05/13/22 03:00 100 05/13/22 02:30 96 05/13/22 02:18 05/13/22 02:17 97 05/13/22 01:45 05/13/22 00:09 100 05/12/22 23:50 96 05/12/22 21:21 100 05/12/22 19:47 98 Resident Activity Tracking Resident Involvement: Resident Care Provided Care Provided: Adult Hospital Medicine (1) Alcohol dependence Complication of substance-induced condition: with unspecified complication Substance use status: in withdrawal Qualified Code(s): F10.239 - Alcohol dependence with withdrawal, unspecified
--- NOTE | 2022-05-13 08:00 | XRay Report ---
XR chest 1V portable CLINICAL HISTORY: Intubation. COMPARISON STUDY: 05/12/2022 TECHNIQUE: 1 view of the chest FINDINGS: Single frontal view of the chest demonstrates the cardiomediastinal silhouette to be within normal li mits. Endotracheal tube has been placed with its tip at the percy and directed towards the right tamika nstem bronchus. It should be retracted at least 2 cm. There has been interval development of left bas ilar atelectasis and left pleural effusion. The right hemithorax is clear. There is no evidence for right pleural effusion. There is no evidence for vascular congestion. There is no acute osseous pathology. IMPRESSION: 1. Tip of the endotracheal tube at the percy and directed towards right mainstem bronchus. It should be retracted at least 2 cm. 2. There is associated left basilar atelectasis and small left pleural effusion. ACT 112: Negative or not required by law. Electronically signed by: Reji Salinas M.D. 05/13/2022 7:59 AM
--- NOTE | 2022-05-13 08:19 | Gastroenterology Progress Note ---
Date of Service May 13, 2022 Assessment & Plan (1) Esophageal obstruction due to food impaction: Plan: Food bolus: Patient is status post EGD for esophageal food bolus impaction of chicken that was successfully removed. EGD did demonstrate moderately severe esophagitis in the lower third of the esophagus with a moderate Schatzki's ring found at the GEJ. She will require repeat EGD with as an outpatient. I will arrange outpatient follow-up at discharge for her. Due to her history of alcohol abuse and respiratory distress following EGD, will require EGD at hospital setting. Continue PPI. Reinforce eating slowly, eating small pieces of food and chewing food thoroughly. Case reviewed with Dr. Penny. Please refer to supervising physician addendum for further recommendations. I have spent 15 minutes of discrete time performing the activities of this visit which include but are not limited to review of the medical record, obtaining a history, physical exam, and entering information in the electronic record. (2) Esophagitis determined by endoscopy: Admission and Anticipated Discharge Date Admission Date: May 13, 2022 Supervising Physician Co-Signing Physician Notes I have seen and examined the patient. I agree with note above by TOMER Membreno except as noted below. HPI Pt extubated. Denies abd pain PE Abdomen pos bs, soft, no gaurding nor rebound A/P dysphagia--discussed small bites, chew food well, gregorio bites with fluid. OV to discuss EGD with prn dilataion of ring. ETOH abuse told patient to stop ETOH. As the supervising physician, I , Jose Penny MD have spent 15 minutes of discrete time performing the activities of this visit which include but not limited to review of the medical records, obtaining a history, physical exam and entering information in the electronic record. TOMER Membreno has reported spending 15 minutes of discrete time with the activities of this visit. Subjective Patient is a pleasant 56-year-old female that was admitted following EGD for esophageal food bolus impaction. Food bolus removal was successful however following EGD, patient was extubated but was weak and unable to protect airway so required emergent reintubation. She is now off the ventilator. On nasal cannula breathing independently. She is sleeping when I entered the room but wakes easily with verbal stimuli. States she does feel sleepy with a very sore throat this morning. She is answering questions appropriately. She has no complaints of abdominal pain, nausea, vomiting. She lives alone at home. 05/12/2022: EGD performed due to dysphagia and esophageal food bolus impaction. There was food found in the middle third of the esophagus and in the lower third of the esophagus. There were multiple pieces of chicken removed from the esophagus using Caesar device and pulling up and out of the mouth. Remaining piece when positioning Caesar was pushed gently through the GE junction into the stomach. Z-line found 40 cm from the incisors. There is moderately severe esophagitis found in the lower third of the esophagus. There was a moderate Schatzki's ring found at the GE J. Striped mildly erythematous mucosa found the gastric antrum. There was a normal examined duodenum. Exam was otherwise without abnormality. Recommendations to continue omeprazole daily and to follow-up in the GI office for repeat EGD with biopsies for eosinophilic esophagitis and dilation versus biopsy to break-up the ring. Patient also should be eating small pieces of food and chewing her food well. Review of Systems Review of Systems: All systems reviewed & are unremarkable except as noted in Subjective Physical Exam Constitutional: WD/WN, vitals as above Eyes: PERRL, conjunctivae normal, anicteric sclerae ENMT: Ears: no hearing impairment Neck: normal visual inspection and trachea midline Respiratory: normal respiratory effort, lungs clear to auscultation Cardiovascular: RRR, no murmur, no edema Gastrointestinal (Abdomen): normal bowel sounds, soft, nontender, no hepatosplenomegaly Skin: normal turgor Neurologic: PERRL, EOMI, accommodation nl, no face palsy, no dysarthria Psychiatric: A+Ox3, euthymic affect Results & Data ([facility]) Vital Signs (Past 12 Hours) Vital Signs Temp Pulse Pulse Resp BP BP BP 05/13/22 05:01 37.3 C 99 H 24 106/81 05/13/22 04:00 37.3 C 98 H 22 119/88 05/13/22 03:34 05/13/22 03:00 37.2 C 103 H 20 125/76 05/13/22 02:30 36.9 C 105 H 25 H 182/112 H 05/13/22 02:18 101 H 05/13/22 02:17 37.2 C 104 H 23 144/87 H 05/13/22 01:45 18 05/13/22 00:09 36.4 C L 85 20 135/92 05/12/22 23:50 88 20 135/92 05/12/22 21:21 89 20 142/92 H Pulse Ox Pulse Ox 05/13/22 05:01 95 05/13/22 04:00 98 05/13/22 03:34 100 05/13/22 03:00 100 05/13/22 02:30 96 05/13/22 02:18 05/13/22 02:17 97 05/13/22 01:45 05/13/22 00:09 100 05/12/22 23:50 96 05/12/22 21:21 100 Laboratory Results Laboratory Results - last 24 hr 05/12/22 05/12/22 05/12/22 19:20 19:20 19:51 WBC 7.99 RBC 4.76 Hgb 14.8 POC Hgb Hct 42.7 POC Hct MCV 89.7 MCH 31.1 MCHC 34.7 RDW Std Deviation 42.8 RDW Coeff of Marybeth 13.0 Plt Count 300 MPV 9.5 Immature Gran % (Auto) Neut % (Auto) Lymph % (Auto) [place] % (Auto) Eos % (Auto) Baso % (Auto) Neut # (Auto) Lymph # (Auto) [place] # (Auto) Eos # (Auto) Baso # (Auto) Immature Gran # (Auto) Neutrophils % (Manual) 68.6 Lymphocytes % (Manual) 20.9 Monocytes % (Manual) 7.0 Eosinophils % (Manual) 2.6 Basophils % (Manual) 0.9 Neutrophils # (Manual) 5.48 Total Absolute Neuts 5.48 Lymphocytes # (Manual) 1.67 Total Abs Lymphocytes 1.67 Monocytes # (Manual) 0.56 Eosinophils # (Manual) 0.21 Basophils # (Manual) 0.07 RBC Morphology Unremarkable Sample Site POC pH POC pCO2 POC pO2 POC HCO3 POC Total CO2 POC Base Excess ABG pH (Temp Correct) ABG pCO2 (Temp Corrct POC ABG pO2 at Pt Temp POC ABG O2 Sat Niko Test O2 Delivery Device POC O2 Rate Minute Ventilation POC FiO2 Tidal Volume PEEP POC Sodium Sodium POC Potassium Potassium Chloride Carbon Dioxide Anion Gap BUN Creatinine Est Cr Clr Drug Dosing Est GFR ( Amer) Est GFR (Non-Af Amer) BUN/Creatinine Ratio Glucose Calcium Phosphorus Magnesium Total Bilirubin Direct Bilirubin AST ALT Alkaline Phosphatase Ammonia Total Protein Albumin Globulin Albumin/Globulin Ratio Nasal Screen MRSA (PCR) Ethyl Alcohol mg/dL 88.6 H SARS-CoV-2, RNA, NAAT NEGATIVE 05/12/22 05/13/22 05/13/22 Unknown 02:30 02:34 WBC RBC Hgb POC Hgb 12.9 Hct POC Hct 38 MCV MCH MCHC RDW Std Deviation RDW Coeff of Marybeth Plt Count MPV Immature Gran % (Auto) Neut % (Auto) Lymph % (Auto) [place] % (Auto) Eos % (Auto) Baso % (Auto) Neut # (Auto) Lymph # (Auto) [place] # (Auto) Eos # (Auto) Baso # (Auto) Immature Gran # (Auto) Neutrophils % (Manual) Lymphocytes % (Manual) Monocytes % (Manual) Eosinophils % (Manual) Basophils % (Manual) Neutrophils # (Manual) Total Absolute Neuts Lymphocytes # (Manual) Total Abs Lymphocytes Monocytes # (Manual) Eosinophils # (Manual) Basophils # (Manual) RBC Morphology Sample Site R Radial POC pH 7.40 POC pCO2 34 L POC pO2 110 H POC HCO3 21 POC Total CO2 22 L POC Base Excess -4.0 ABG pH (Temp Correct) 7.405 ABG pCO2 (Temp Corrct 33 L POC ABG pO2 at Pt Temp 110 POC ABG O2 Sat 98.0 H Niko Test Pass O2 Delivery Device Ventilator POC O2 Rate 18 Minute Ventilation 9.2 POC FiO2 40 Tidal Volume 400 PEEP 5 POC Sodium 135 Sodium 137 POC Potassium 4.1 Potassium 4.4 Chloride 99 Carbon Dioxide 24 Anion Gap 14 H BUN 15 Creatinine 1.04 Est Cr Clr Drug Dosing 69.0 Est GFR ( Amer) 70.5 Est GFR (Non-Af Amer) 60.9 BUN/Creatinine Ratio 14.4 Glucose 99 Calcium 9.3 Phosphorus Magnesium Total Bilirubin 0.8 Direct Bilirubin AST 29 ALT 26 Alkaline Phosphatase 61 Ammonia Total Protein 8.1 Albumin 4.9 Globulin 3.2 Albumin/Globulin Ratio 1.5 Nasal Screen MRSA (PCR) Pending Ethyl Alcohol mg/dL SARS-CoV-2, RNA, NAAT 05/13/22 05/13/22 05/13/22 05:40 05:40 05:40 WBC 14.38 H RBC 4.32 Hgb 13.4 POC Hgb Hct 39.3 POC Hct MCV 91.0 MCH 31.0 MCHC 34.1 RDW Std Deviation 44.0 RDW Coeff of Marybeth 13.2 Plt Count 249 MPV 9.4 Immature Gran % (Auto) 0.2 Neut % (Auto) 84.2 Lymph % (Auto) 9.7 [place] % (Auto) 5.6 Eos % (Auto) 0.2 Baso % (Auto) 0.1 Neut # (Auto) 12.10 H Lymph # (Auto) 1.40 [place] # (Auto) 0.80 H Eos # (Auto) 0.03 Baso # (Auto) 0.02 Immature Gran # (Auto) 0.03 H Neutrophils % (Manual) Lymphocytes % (Manual) Monocytes % (Manual) Eosinophils % (Manual) Basophils % (Manual) Neutrophils # (Manual) Total Absolute Neuts Lymphocytes # (Manual) Total Abs Lymphocytes Monocytes # (Manual) Eosinophils # (Manual) Basophils # (Manual) RBC Morphology Sample Site POC pH POC pCO2 POC pO2 POC HCO3 POC Total CO2 POC Base Excess ABG pH (Temp Correct) ABG pCO2 (Temp Corrct POC ABG pO2 at Pt Temp POC ABG O2 Sat Niko Test O2 Delivery Device POC O2 Rate Minute Ventilation POC FiO2 Tidal Volume PEEP POC Sodium Sodium 135 L POC Potassium Potassium 3.9 Chloride 100 Carbon Dioxide 21 Anion Gap 14 H BUN 15 Creatinine 0.88 Est Cr Clr Drug Dosing 81.5 Est GFR ( Amer) 86.3 Est GFR (Non-Af Amer) 74.5 BUN/Creatinine Ratio 17.0 Glucose 88 Calcium 8.3 L Phosphorus 3.6 Magnesium 1.8 Total Bilirubin 0.9 Direct Bilirubin 0.2 AST 27 ALT 24 Alkaline Phosphatase 55 Ammonia 32.0 Total Protein 7.1 Albumin 4.2 Globulin Albumin/Globulin Ratio Nasal Screen MRSA (PCR) Ethyl Alcohol mg/dL SARS-CoV-2, RNA, NAAT Diagnostic Findings Chest X-Ray 05/12/22 19:19 XR chest 1V portable CLINICAL HISTORY: Chicken stuck in throat TECHNIQUE: Single frontal radiograph of the chest was obtained. Comparison: Comparison is made to chest radiograph 03/01/2022 FINDINGS: No lines and tubes are seen. The cardiomediastinal silhouette is normal. The lungs are clear. No evidence of pleural effusion or pneumothorax. IMPRESSION: No acute chest disease. ACT 112: Negative or not required by law. Electronically signed by: Henry Solis M.D. 05/12/2022 8:05 PM Chest X-Ray 05/13/22 01:50 XR chest 1V portable CLINICAL HISTORY: Intubation. COMPARISON STUDY: 05/12/2022 TECHNIQUE: 1 view of the chest FINDINGS: Single frontal view of the chest demonstrates the cardiomediastinal silhouette to be within normal limits. Endotracheal tube has been placed with its tip at the percy and directed towards the right mainstem bronchus. It should be retracted at least 2 cm. There has been interval development of left basilar atelectasis and left pleural effusion. The right hemithorax is clear. There is no evidence for right pleural effusion. There is no evidence for vascular congestion. There is no acute osseous pathology. IMPRESSION: 1. Tip of the endotracheal tube at the percy and directed towards right mainstem bronchus. It should be retracted at least 2 cm. 2. There is associated left basilar atelectasis and small left pleural effusion. ACT 112: Negative or not required by law. Electronically signed by: Reji Salinas M.D. 05/13/2022 7:59 AM Chest X-Ray 05/13/22 07:00 XR chest 1V portable HISTORY: 56 years-old Female Resp failure acute respiratory failure COMPARISON: Chest radiograph 05/13/2022 TECHNIQUE: Portable AP view of the chest FINDINGS: Cardiomediastinal and hilar silhouettes are within normal limits. Interval extubation. No pneumothorax, large pleural effusion or overt pulmonary edema. Mild persistent left basilar opacities with improved aeration of the left midlung. The bones appear grossly intact. IMPRESSION: 1. Interval extubation. 2. Improved aeration of the left lung with mild persistent left basilar opacities. ACT 112: Negative or not required by law. The above report was generated using voice recognition software. It may contain grammatical, syntax or spelling errors. Electronically signed by: Allen Moseley M.D. 05/13/2022 7:06 AM
[2022-05-13] MEDS ORDERED: FOLIC ACID 1 MG TAB PO SCH (09:00)
[2022-05-13] MEDS ORDERED: THIAMINE HCL 100 MG TAB PO SCH (09:00)
[2022-05-13] MEDS ORDERED: chlordiazePOXIDE ALCOHOL WITHDRAWL 50MG PO STA (09:42)
--- NOTE | 2022-05-13 10:09 | Discharge Summary ---
Date of Service May 13, 2022 Admission HPI Per Admitting Provider 56yo female with a PMH of EtOH use disorder, EtOH withdrawal, SVT, DCIS, HTN, HLD, and hypothyroidism presented to the ED last night after getting a piece of chicken stuck in her throat. History is obtained through chart review as she is currently intubated and sedated. Patient was eating around 4pm yesterday when she got a piece of chicken stuck in her throat. In the ED, she reported vomiting, inability to eat or drink since 4pm, and some throat pain. She denied headache or changes in vision, CP, SOB, or dysuria. Patient denied any exacerbating or alleviating factors. Pain was rated at 7/10. Patient did note drinking alcohol at 3pm today; patient noted she is in recovery for alcohol use disorder, and had been abstinent until two days ago. In the ED, vitals were stable. CBC and CMP were unremarkable including LFTs and bilirubin. Serum EtOH was elevated to 88. CXR was unremarkable. Patient was given IVF, zofran, ativan, and glucagon without improvement. ED provider consulted GI (Dr. Penny) who performed an EGD, during which removal of food from the lower third of the esophagus was successful. However, upon extubation, patient's breathing was shallow and she remained somnolent, and so she was intubated, sedated, and transferred to the ICU. Admission Exam Per Admitting Provider Constitutional: laying in ICU bed HEENT: ET tube in place, minimal blood-streaked noted CV: heart sounds distant Resp: lung sounds distant MSK: no gross deformities appreciated Neuro: sedated, E(2) V(NT) M(4) Principal Diagnosis esophageal food bolus impaction Discharge Exam General: Grossly A&O. NAD. Cooperative. Fully conversational. HEENT: Atraumatic, normocephalic. EOMI. Pulm: CTAB. -wheezes, -rales, -rhonchi. Slightly softer breath sounds. Symmetrical chest rise. No accessory muscle use. Cardiac: TRR, -mrg. Abdominal: Nontender, nondistended, soft. Neuro: Mild bilat hand temor w/ hands stretched out. Discharge Data Allergies Allergy/AdvReac Type Severity Reaction Status Date / Time levothyroxine Allergy Severe facial Unverified 03/01/22 18:48 swelling minocycline [From Minocin] Allergy Mild Rash Verified 03/01/22 18:48 Sulfa (Sulfonamide Allergy Unknown PT DOESN'T Verified 03/01/22 18:48 Antibiotics) REMEMBER REACTION Consultations 05/12/22 21:09 Consult Gastroenterology Stat 05/12/22 23:10 Consult Gastroenterology Stat 05/13/22 02:18 Consult Finger Grip Machine Operator Routine Procedures Performed Operation Date: 05/13/22 00:30 Actual Procedures p Esophagogastroduodenoscopy, Food Bolus Removal(Not Applicable) - Jose Penny Impression: - Food in the middle third of the esophagus and in the lower third of the esopha darron. Removal was successful. - Esophagogastric landmarks identified. - Moderately severe erosive esophagitis. - Moderate Schatzki ring. - Erythematous mucosa in the antrum. - Normal examined duodenum. - The examination was otherwise normal. Ordered Studies Cardiac Enzymes 05/12/22 05/13/22 Range/Units Unknown 05:40 AST 29 27 (13-39) U/L CBC 05/12/22 05/13/22 Range/Units 19:20 05:40 WBC 7.99 14.38 H (4.8-10.8) K/uL RBC 4.76 4.32 (4.2-5.4) M/uL Hgb 14.8 13.4 (12.0-16.0) g/dL Hct 42.7 39.3 (37-47) % Plt Count 300 249 (130-400) K/uL Neut # (Auto) 12.10 H (1.4-6.5) K/uL Lymph # (Auto) 1.40 (1.2-3.4) K/uL [place] # (Auto) 0.80 H (0.11-0.59) K/uL Eos # (Auto) 0.03 (0-0.5) K/uL Baso # (Auto) 0.02 (0-0.2) K/uL Comprehensive Metabolic Panel 05/12/22 05/13/22 Range/Units Unknown 05:40 Sodium 137 135 L (136-145) mmol/L Potassium 4.4 3.9 (3.5-5.1) mmol/L Chloride 99 100 (98-107) mmol/L Carbon Dioxide 24 21 (21-32) mmol/L BUN 15 15 (6-23) mg/dl Creatinine 1.04 0.88 (0.6-1.2) mg/dl Glucose 99 88 (70-99(Fasting)) mg/dl Calcium 9.3 8.3 L (8.5-10.1) mg/dl Direct Bilirubin 0.2 (0-0.2) mg/dl AST 29 27 (13-39) U/L ALT 26 24 (7-52) U/L Alkaline Phosphatase 61 55 (34-104) U/L Total Protein 8.1 7.1 (6.0-8.3) gm/dl Albumin 4.9 4.2 (3.4-5.0) gm/dl Intake and Output 05/13/22 05/13/22 05/13/22 06:59 14:59 22:59 Intake Total 5.875 / 1005.875 Output Total 350 / 350 150 / 150 Balance -344.125 / 655.875 -150 / -150 Intake: IV 5.875 / 1005.875 fentaNYL citrate 2,500 mcg In 0.625 / 0.625 250 ml @ 25 MCG/HR 2.5 mls/hr IV .Q96H CASSANDRA Rx#:[id number] propofoL 1,000 mg In 100 ml @ 5.25 / 5.25 20 MCG/KG/MIN 10.524 mls/hr IV .[id number] CASSANDRA Rx#:[id number] Output: Urine Amount (Catheter) 350 / 350 150 / 150 [place]/Indwelling 350 / 350 150 / 150 Other: # Unmeasured Voids 1 Weight 89.6 kg 89.6 kg 89.6 kg Weight Measurement Method Built in [facility] Patient Weight 05/14/22 06:59 Weight 89.6 kg Chest X-Ray 05/12/22 19:19 XR chest 1V portable CLINICAL HISTORY: Chicken stuck in throat TECHNIQUE: Single frontal radiograph of the chest was obtained. Comparison: Comparison is made to chest radiograph 03/01/2022 FINDINGS: No lines and tubes are seen. The cardiomediastinal silhouette is normal. The lungs are clear. No evidence of pleural effusion or pneumothorax. IMPRESSION: No acute chest disease. ACT 112: Negative or not required by law. Electronically signed by: Henry Solis M.D. 05/12/2022 8:05 PM Chest X-Ray 05/13/22 01:50 XR chest 1V portable CLINICAL HISTORY: Intubation. COMPARISON STUDY: 05/12/2022 TECHNIQUE: 1 view of the chest FINDINGS: Single frontal view of the chest demonstrates the cardiomediastinal silhouette to be within normal limits. Endotracheal tube has been placed with its tip at the percy and directed towards the right mainstem bronchus. It should be retracted at least 2 cm. There has been interval development of left basilar atelectasis and left pleural effusion. The right hemithorax is clear. There is no evidence for right pleural effusion. There is no evidence for vascular congestion. There is no acute osseous pathology. IMPRESSION: 1. Tip of the endotracheal tube at the percy and directed towards right mainstem bronchus. It should be retracted at least 2 cm. 2. There is associated left basilar atelectasis and small left pleural effusion. ACT 112: Negative or not required by law. Electronically signed by: Reji Salinas M.D. 05/13/2022 7:59 AM Chest X-Ray 05/13/22 07:00 XR chest 1V portable HISTORY: 56 years-old Female Resp failure acute respiratory failure COMPARISON: Chest radiograph 05/13/2022 TECHNIQUE: Portable AP view of the chest FINDINGS: Cardiomediastinal and hilar silhouettes are within normal limits. Interval extubation. No pneumothorax, large pleural effusion or overt pulmonary edema. Mild persistent left basilar opacities with improved aeration of the left midlung. The bones appear grossly intact. IMPRESSION: 1. Interval extubation. 2. Improved aeration of the left lung with mild persistent left basilar opacities. ACT 112: Negative or not required by law. The above report was generated using voice recognition software. It may contain grammatical, syntax or spelling errors. Electronically signed by: Allen Moseley M.D. 05/13/2022 7:06 AM Hospital Course (1) Difficult extubation: 56yo female with a PMH of EtOH use disorder, EtOH withdrawal, HTN, HLD, DCIS, and hypothyroidism presented to the ED last night with a food bolus, now intubated and sedated in the ICU after failing extubation s/p EGD for food bolus removal. S/p extubation on subsequent attempt and is doing well. Esophageal food bolus impaction Likely 2/2 binge drinking episode w/ increased risk of aspiration/choking S/p successful EGD food bolus removal Failed initial extubation trial 2/2 sedation from medications; successful on attempt several hours later Continue home PPI Outpatient GI f/u Alcohol use disorder Patient noted with long history of EtOH use disorder; serum EtOH in ED: 88 Patient endorsing months of sobriety since 02/2022 admission and had 8 days of relapse prior to this admission, w/ last drink. 2 bottles of wine daily, last drink during afternoon of 05/12/22. AWSS was 8 and 3. s/p prn ativan. Provided 1 dose of Librium 50mg. Continue naltrexone Patient strongly motivated to stop etoh use Patient is following AA, therapy, and outpatient rehab Librium taper upon discharge given recent heavy use (~10 servings/day x 8 days) 50mg of Librium every 6 hours for 2 doses starting at 6pm tonight 05/13/22. Wait 8 hours. 50mg of Librium every 8 hours for 3 doses. Wait 8 hours. 25mg of Librium every 8 hours for 3 doses. Wait 12 hours. 10mg of Librium every 12 hours for 2 doses. Moderate-severe endoesophagitis, moderate Schatzki ring Follow up as outpatient HLD, DCIS, MDD: restart home regimen at dispo Patient was full code this admission. (2) Alcohol dependence: (3) Anxiety: (4) Ductal carcinoma in situ (DCIS) of right breast: (5) Esophageal obstruction due to food impaction: (6) Hypothyroidism: (7) Mood disorder: (8) Respiratory failure: Total Time Total Time Spent Total Time Spent (In Minutes): <30 Discharge Plan Discharge Items Patient Disposition: Home - Self-Care Reason For Visit: FOOD BOLUS Discharge Diagnosis: esophageal food bolus impaction, esophagitis, Schatzkis ring, antral erythema. Condition on Discharge: Good Activity: Resume your previous activity Non-emergency contact: Primary Care Provider Call non-emergency contact if: you have any medication questions, your pain is worsening and you have a fever Follow-up/Referrals: Latoya Valerio [Primary Care Provider] - (hospital discharge follow up within 1 week of leaving hospital) Jose Penny [Physician] - (GI follow up in 3-4 weeks) Diet: Regular Diet Texture: Easy to Chew Addtl Attending Provider Instructions: Emilio Ms. Perla, You were admitted to [facility] for food bolus impaction. The choking episode was thought to be related to your alcohol use. The GI specialist removed this with endoscopy. You briefly required breathing support on the mechanical ventilator. We discussed that you're planning to quite alcohol use completely. Continue the naltrexone and continue following AA, therapy, and outpatient rehab. I will be prescribing a short 3-4 day taper of Librium to help reduce the risk of alcohol withdrawal given your recent use. Take 50mg of Librium every 6 hours for 2 doses starting at 6pm tonight 05/13/22. Wait 8 hours. Take 50mg of Librium every 8 hours for 3 doses. Wait 8 hours. Take 25mg of Librium every 8 hours for 3 doses. Wait 12 hours. Take 10mg of Librium every 12 hours for 2 doses. You have been prescribed a total of 11 tabs of 25mg Librium and 2 tabs of 10mg Librium; follow the instructions above. Please follow up with your PCP within 1 week of hospital discharge. Follow up with GI as well, in 3-4 weeks. GI may consider a repeat EGD scope in a few months. If you develop any new or worsening symptoms including fever, chills, sweats, chest pain, chest pressure, difficulty breathing, uncontrolled nausea/vomiting, rash, wheezing, passing out or nearly passing out, bleeding, black/bloody bowel movements, or other new or concerning symptoms please call your primary care physician, or call 911 for re-evaluation in the emergency department if you are very concerned. Addtl Knotter Hand Provider Instructions: Cut food into small pieces, , chew food well, gregorio bites of food with liquid. Follow up in GI office. Pending Studies at Discharge: No Stand-Alone Forms: My [employer], Smoking Cessation Medications and DC Order Prescriptions: New chlordiazepoxide HCl 25 mg capsule 25 mg PO UD Qty: 11 RF: 0 chlordiazepoxide HCl 10 mg capsule 10 mg PO UD Qty: 2 RF: 0 Continued amitriptyline 50 mg tablet 50 mg PO HS RF: 0 omeprazole magnesium [Prilosec OTC] 20 mg Tablet,Delayed Release (Dr/Ec) 20 mg PO QAM RF: 0 gabapentin 100 mg capsule 100 mg PO TID RF: 0 tamoxifen 20 mg tablet 20 mg PO QAM RF: 0 desvenlafaxine succinate [Pristiq] 50 mg tablet extended release 24 hr 100 mg PO QAM RF: 0 atorvastatin 20 mg Tablet 20 mg PO HS RF: 0 cetirizine [Zyrtec] 10 mg Tablet 10 mg PO QAM RF: 0 naltrexone 50 mg Tablet 100 mg PO BID RF: 0 fluticasone propionate 50 mcg/actuation [place],Suspension 1 spray INTRANASAL DAILY RF: 0 metoprolol succinate 25 mg tablet extended release 24 hr 25 mg PO BID RF: 0 montelukast 10 mg tablet 10 mg PO QPM RF: 0 propranolol 20 mg tablet 20 mg PO BID RF: 0 Discharge Orders: Discharge Order (Routine); Ordered 05/13/22 Ordered By: Geoff Joe Admission Data Admit Date/Time: 05/13/22 02:18 Attending Provider: Parish Masterson Admit Provider: Nico Boykin Primary Care Provider: Latoya Valerio Other Providers: Migdalia Cavanaugh ; Jose Penny ; Scout Loving ; Tristin Garber Other Interventions: Discharge Summary Assessment (RN) Last Done: 05/13/22 14:42 Supervising Physician Co-Signing Physician Notes I personally examined the patient and verified all levy points of history and exam, discussed case, and agree with decision making with Dr Joe feeling better not any more shaky than her baseline tremors - notes that the longer she goes without drinking the better she does with this. feels up to going home vitals noted nad heent nc at mmm breathing unlabored no accessory muscles good effort skin no rashes no pallor or icterus, mild tremors only when hands held out at arm's length R > L no head tremor no resting tremor no sweats no agitation or anxiety food bolus - now removed difficulty w coming off ventilator - slightly prolonged need for respiratory support thought by anesthesia to be complication from slow clearance of succinylcholine - necessary care for sedation to remove food bolus - no stable off vent and safe for discharge EtOH abuse - no concerning withdrawal - has only been drinking again this time for about a week - safe for home. given prior EtOH abuse - short librium taper - discussed to return to hospital if any withdrawal symptoms were to ensue otherwise as above Resident Activity Tracking Resident Involvement: Resident Care Provided Care Provided: Adult Hospital Medicine
[2022-05-13] MEDS: chlordiazePOXIDE HCl 25 MG CAP PO SCH ×2 (10:21→15:40)
[2022-05-13 14:13] VITALS: PULSE 98; TEMP 99; O2SAT 98
[2022-05-13 14:43] VITALS: BP 135/92
[2022-05-13] MEDS ORDERED: CHLORASEPTIC 1.4% SOLN 180 ML BTL MT ONE (15:30)
--- NOTE | 2022-05-13 17:28 | Billing Data ---
Date of Service May 13, 2022 Coding Level of Care Code D/C DAY MANAGEMENT <30 MINS
--- NOTE | 2022-05-14 04:12 | Billing Data ---
Date of Service May 14, 2022 Coding Level of Care Code Critical Care 1st - mins
== END 2022-05-13 16:57 | disposition home or self-care (01) ==
LOC: ED 18:31 → OR 05-13 → 1E 05-13 02:18 → INTOOBSV 05-13 02:18 → SUATTDRO 05-13 02:18

== ENCOUNTER 2022-06-04 17:50 | Inpatient (IN) ==
--- NOTE | 2022-06-04 17:54 | ED Triage Note ---
Date of Service June 04, 2022 History of Present Illness This patient was briefly evaluated while in triage. An abbreviated physical exam was performed. This patient is a 56-year-old Female that presents for evaluation of ETOH withdrawl. Last drink 3 days ago, Feels wobbly on feet and shaky. Last night fazal lucinations. No hx of seizures for withdrawl. Physical Exam GENERAL: 56 year old female. In no acute distress. Tremors noted. SKIN: No lesions or rashes. HEART: Regular rate and rhythm. LUNGS: Clear to auscultation. NEURO: Alert and oriented. No deficits. MUSCULOSKELETAL: No deformities to inspection of the extremities. PSYCH: Patient is pleasant and answers all questions appropriately. Initial orders for labs and / or imaging were placed and patient was placed in the waiting area until a bed is available. Please see further documentation for the full ED course.
[2022-06-04 18:59] LABS: Appearance Urine Clear (Clear); Bilirubin Urine Negative (Negative); Blood Urine Negative (Negative); Color Urine Yellow; Glucose Urine UA Negative (Negative); Ketones Urine Trace (Negative); Leukocyte Esterase Urine Trace (Negative); Nitrite Urine Negative (Negative); Protein Urine Negative (Negative); Specific Gravity Urine 1.004 (1.000-1.030); Urobilinogen Urine Negative (Negative); pH Urine 6.5 (4.5-7.5)
[2022-06-04 19:11] LABS: Alanine Aminotransferase 68 U/L (7-52); Albumin Globulin Ratio 1.4 (0.9-2); Albumin Level 4.5 gm/dl (3.4-5.0); Alkaline Phosphatase 72 U/L (34-104); Anion Gap 14 (3-11); Aspartate Aminotransferase 119 U/L (13-39); BUN Creatinine Ratio 12.4 (10-20); Bilirubin,Total 1.4 mg/dl (0.2-1.0); Blood Urea Nitrogen 13 mg/dl (6-23); Carbon Dioxide 26 mmol/L (21-32); Chloride 90 mmol/L (98-107); Est GFR (African American) 69.7 ml/min; Est GFR (Non-African American) 60.2 ml/min; Globulin 3.3 gm/dl (2.5-4.0); Glucose 118 mg/dl (70-99(Fasting)); Magnesium 1.7 mg/dl (1.7-2.4); Potassium 3.5 mmol/L (3.5-5.1); Sodium 130 mmol/L (136-145); Total Protein 7.8 gm/dl (6.0-8.3)
[2022-06-04 19:16] LABS: Basophils # (auto) 0.02 K/uL (0-0.2); Basophils % (auto) 0.4 %; Eosinophils # (auto) 0.08 K/uL (0-0.50); Eosinophils % (auto) 1.5 %; Hematocrit (blood only) 36.8 % (34.1-44.9); Hemoglobin 13.2 g/dl (12.0-16.0); Immature Granulocytes # (auto) 0.01 K/uL (0.00-0.02); Immature Granulocytes % (auto) 0.2 %; Lymphocytes # (auto) 0.87 K/uL (1.2-3.4); Lymphocytes % (auto) 16.6 %; Mean Corpuscular Hemoglobin 32.4 pg (25.0-34.0); Mean Corpuscular Hgb Conc 35.9 g/dL (32.0-36.0); Mean Corpuscular Volume 90.2 fL (80.0-100.0); Mean Platelet Volume 9.7 fL (9.4-12.3); Monocytes # (auto) 0.72 K/uL (0.24-0.82); Monocytes % (auto) 13.7 %; Neutrophils # (auto) 3.54 K/uL (1.4-6.5); Neutrophils % (auto) 67.6 %; Platelet Count 121 K/uL (130-400); Platelet Estimate Decreased (Normal); RDW Coefficient of Variation 14.5 % (11.5-14.5); RDW Standard Deviation 46.9 fL (36.4-46.3); Red Blood Count 4.08 M/uL (3.93-5.22); White Blood Count 5.24 K/ul (4.8-10.8)
[2022-06-04 19:25] LABS: Epithelial Cell Urine 0-5 /lpf (0-5)
[2022-06-04 19:26] LABS: Bacteria Urine 1+ (Negative); RBC Urine 0-4 /hpf (0-4); WBC Urine 0-5 /hpf (0-5)
[2022-06-04 19:38] LABS: Partial Thromboplastin Time 26.5 Seconds (21.0-31.0); Prothrombin Time 11.1 Seconds (9.0-12.0)
[2022-06-04] MEDS ORDERED: ONDANSETRON INJ 2 MG/ML 2 ML VIAL IV STA (19:41)
[2022-06-04] MEDS ORDERED: chlordiazePOXIDE HCl 25 MG CAP PO ONE (19:41)
[2022-06-04] MEDS ORDERED: MULTI-VITAMIN INFUSION 10 ML, THIAMINE HCL 100 MG, FOLIC ACID 1 MG in SODIUM CHLORIDE 0... IV ONE (19:41)
[2022-06-04] MEDS ORDERED: LORazepam 2 MG/1 ML VIAL IV STA (19:41)
[2022-06-04] MEDS ORDERED: SODIUM CHLORIDE 0.9% 1000ML 500 ML IV ONE (19:41)
--- NOTE | 2022-06-04 20:03 | Emergency Department Note ---
Impression & Plan Alcohol abuse, Alcohol withdrawal, Acute hyponatremia, Elevated liver enzymes ED Provider Note NAME: KAUSHAL ROBLEDO AGE: 56 SEX: F : 1965 ARRIVES VIA: Walk-In INFORMANT: [Patient] ED PROVIDER(S): [Satish Julien MD] CHIEF COMPLAINT: Alcohol withdrawal HISTORY OF PRESENT ILLNESS: The patient is a 56-year-old female who presents to the ER with alcohol withdrawal. She has had hallucinations since yesterday. She feels shaky and jittery and has no appetite with nausea. No vomiting. No abdominal pain or chest pain, no shortness of breath. The patient last had alcohol about 3 days ago. She is stopping alcohol because she wants to detox and go to rehab. She has been admitted to our hospital before for alcohol withdrawal. REVIEW OF SYSTEMS: See HPI for pertinent positives and negatives. A total of ten systems were reviewed and were otherwise negative. PMHx/PSHx: See Below SOCIAL HISTORY: See Below. PHYSICAL EXAM: GENERAL: Patient is in no acute distress. HEENT: No acute trauma, normocephalic atraumatic, mucous membranes moist, no na ric congestion, no scleral icterus. NECK: No stridor, no adenopathy, no meningismus, trachea is midline. LUNGS: Clear to auscultation bilaterally, no wheeze, no rhonchi, breath sounds equal. HEART: Without murmurs gallops or rubs, regular rate and rhythm. ABDOMEN: Soft, nontender, bowel sounds positive, no peritonitis. EXTREMITIES: No cyanosis or edema, full range of motion of all the joints witho ut pain or difficulty, no signs for acute trauma. NEUROLOGIC: Oriented x 3, no acute motor or sensory deficits, no focal weakness. Extremity tremor noted. SKIN: No rash, no jaundice, no diaphoresis. DIFFERENTIAL DIAGNOSIS: Infection, dehydration, metabolic abnormality, hypo/hyperglycemia, electrolyte disturbance, alcohol withdrawal, delirium tremens, anemia, hypoxia, cardiac sources, intracerebral event, as well as other pathologies. EMERGENCY DEPARTMENT COURSE/PROCEDURES: ECG: Indication was alcohol withdrawal. The ECG shows a normal sinus rhythm with a rate of 74. There is no ST elevation, no PVCs. The QTc is 450. Continuous Cardiac Monitoring: An order was placed for continuous cardiac monitoring. The monitor shows a rate of 72 with normal sinus rhythm. Critical Care Note: I have personally spent 39 minutes of critical care time in the direct management of this patient. This includes bedside care, interpretation of diagnostic studies, and testing, discussion with consultants, patient, and family members, and other required patient management activities. This 39 minutes is in excess of all separately billable procedures. MEDICAL DECISION MAKING: There is a normal white blood cell count. No anemia. Platelet count was slightly low but this has been documented before. No coagulopathy. Sodium was low at 130. No renal failure. There were some subtle liver enzyme elevations, likely from her alcohol abuse. Urinalysis did not show infection. Alcohol level was undetectable. COVID test returned negative. On exam, the patient was not toxic or febrile. She did demonstrate tremors in her extremities. The patient received IV Ativan, IV saline. She was given IV saline with multivitamins, thiamine and folate. She was given oral Librium. She was given IV Zofran. The patient is withdrawing from alcohol. She has been through this process before. She complains of some hallucinations from the withdrawal. She has no h istory of previous seizure activity from alcohol withdrawal. Patient is going to be hospitalized for her alcohol withdrawal symptoms. She requires IV medications to control the withdrawal. She requires IV hydration. I did speak with the patient and top case assembler. The on-call hospitalist was cons ulted. 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 Huynh) Rosacea Ventricular tachycardia from alcohol withdrawl Surgical History H/O colonoscopy 05/01/2016 - perianal skin tag, normal colon H/O esophagogastroduodenoscopy 07/04/2009 - EUS exam- No choledocholithiasis, No masses appreciated in the entire pancreas. EGD exam- Normal examined duodenum. Bilious gastric fluid. Mild gastritis ? bilious etiology. Bx neg for H. pylori. Prominent fold just distal to GEJ. Bx- Squamocolumnar mucosa with mild carditis and hyperplastic changes. Negative for intestinal metaplasia and dysplasia. Medium sized hiatus hernia." On 03/10/17 15:26 Rita España wrote "07/04/2009- EUS exam- No choledocholithiasis, No masses appreciated in the entire pancreas. EGD exam- Normal examined duodenum. Bilious gastric fluid. Mild gastritis ? bilious etiology. This was biopsied to r/o H Pylori. Prominent fold just distal to GEJ. This was biopsied. Medium sized hiatus hernia." History of breast biopsy 11/30/2019 - Left Breast 02/08/2020 - Right Breast History of breast lump/mass excision 02/15/2020 - Right Breast History of dilation and curettage 2003 - s/p miscarriage History of lumpectomy of left breast 02/15/2020 History of lumpectomy of right breast 03/28/2020 History of mandibular surgery 1986 History of surgery 05/07/2016 - Anal Tag Removal S/P laparoscopic cholecystectomy 02/23/2004 Family History Mother Breast cancer, Onset Age: 76 Currently battling metastatic breast cancer Grandmother (Paternal) , Passed age 93 of stomach cancer No problems noted. Grandfather (Maternal) , Passed age 72 of colon cancer No problems noted. Father , Passed age 67 of complications from menigioma No problems noted. Aunt Breast cancer, Onset Age: 34 Alive and well Aunt Breast cancer, Onset Age: 62 alive and well Aunt Breast cancer, Onset Age: 62 Alive and well Brother Stroke Dementia Sister No problems noted. Son No problems noted. Other Family history non-contributory Social History Smoking Status: Never smoker Second Hand Exposure: No; Hx Alcohol Use: Yes Alcohol type: wine Alcohol Intake Frequency: 4 or More x per/Week Alcohol Intake Frequency Comment: 3 bottles of wine daily for past 30 days Hx Substance Use: No Preferred Language: Georgian Communication Ability: Effective Visual Impairment: Limited Hearing Ability: Normal Roller Printer Required: No Beliefs That Will Affect Care: None marital status: Current Living Situation: Alone Current Living Situation Comment: adult son lives w/ her current occupational status: 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 Other Information That Helps Us Care for You: No Feels Safe at Home: Yes Safety Concerns: Feels Safe At This Time Childhood Exposure to Second-Hand Smoke: Yes (Mom ) caffeine: Yes (daily ) during the past year weight has: remained stable Dental Care, Regularly: Yes Assistive Devices: CPAP and Glasses Allergies Allergies Allergy/AdvReac Type Severity Reaction Status Date / Time levothyroxine Allergy Severe facial Unverified 03/01/22 18:48 swelling minocycline [From Minocin] Allergy Mild Rash Verified 03/01/22 18:48 Sulfa (Sulfonamide Allergy Unknown PT DOESN'T Verified 03/01/22 18:48 Antibiotics) REMEMBER REACTION Home Meds Home Medications Medication Instructions Recorded Confirmed amitriptyline 50 mg tablet 50 mg PO 12/13/19 06/04/22 omeprazole magnesium 20 mg 20 mg PO QA 12/13/19 06/04/22 tablet,delayed release (Prilosec OTC) gabapentin 100 mg capsule 100 mg PO TID 04/10/20 06/04/22 tamoxifen 20 mg tablet 20 mg PO QA 06/14/20 06/04/22 desvenlafaxine succinate 50 mg 100 mg PO QAM 02/17/22 06/04/22 tablet,extended release 24 hr (Pristiq) atorvastatin 20 mg tablet 20 mg PO 02/18/22 06/04/22 cetirizine 10 mg tablet (Zyrtec) 10 mg PO QAM 02/18/22 06/04/22 fluticasone propionate 50 1 spray intranasal HS 02/18/22 06/04/22 mcg/actuation nasal spray,suspension naltrexone 50 mg tablet 100 mg PO BID 02/18/22 06/04/22 montelukast 10 mg tablet 10 mg PO QPM 03/01/22 06/04/22 propranolol 20 mg tablet 20 mg PO BID 03/01/22 06/04/22 azelastine 137 mcg (0.1 %) nasal 1 spray intranasal DAILY 05/15/22 06/04/22 spray aerosol diltiazem HCl 30 mg tablet 30 mg PO BID PRN Tachycardia 05/15/22 06/04/22 disulfiram 250 mg tablet 250 mg PO DAILY 05/15/22 06/04/22 melatonin 5 mg tablet 5 mg PO HS PRN Insomnia 05/15/22 06/04/22 metoprolol succinate 25 mg 25 mg PO DAILY 05/15/22 06/04/22 tablet,extended release 24 hr Results & Data (ED) Vital Signs Vital Signs - 24 hr 06/04/22 17:54 06/04/22 19:22 06/04/22 19: Temperature 37.4 C Temperature Source Temporal Artery Scan Pulse Rate 77 72 Pulse Rate [Apical] 64 Pulse Rhythm [Apical] Respiratory Rate 19 17 16 Respiratory Effort / Characteristics Non-Labored Spontaneous Respiratory Depth Normal Normal Respiratory Pattern Regular Blood Pressure 138/93 Blood Pressure [Left Arm] 115/79 Blood Pressure Mean 108 Blood Pressure Mean [Left Arm] 91 Pulse Oximetry 100 100 100 Oxygen Delivery Method Room Air Room Air Room Air Sepsis Recent Fever Within 48 Hours No Sepsis New/Unexplained Change in Mental Status N/A Sepsis Action Taken by Nursing No Action Required 06/04/22 21:06 Temperature Temperature Source Pulse Rate Pulse Rate [Apical] 74 Pulse Rhythm [Apical] Regular Respiratory Rate 16 Respiratory Effort / Characteristics Respiratory Depth Respiratory Pattern Blood Pressure Blood Pressure [Left Arm] 115/79 Blood Pressure Mean Blood Pressure Mean [Left Arm] 91 Pulse Oximetry 99 Oxygen Delivery Method Room Air Sepsis Recent Fever Within 48 Hours Sepsis New/Unexplained Change in Mental Status Sepsis Action Taken by Senior Care Medications Current Medication List: was personally reviewed by me Laboratory Data Attestation: I reviewed the patient's lab results. Result diagrams: 06/04/22 18:25 06/04/22 18:25 Lab Results 06/04/22 06/04/22 06/04/22 Range/Units 18:25 18:25 18:25 WBC 5.24 (4.8-10.8) K/ul RBC 4.08 (3.93-5.22) M/uL Hgb 13.2 (12.0-16.0) g/dl Hct 36.8 (34.1-44.9) % MCV 90.2 (80.0-100.0) fL MCH 32.4 (25.0-34.0) pg MCHC 35.9 (32.0-36.0) g/dL RDW Std Deviation 46.9 H (36.4-46.3) fL RDW Coeff of Marybeth 14.5 (11.5-14.5) % Plt Count 121 L (130-400) K/uL MPV 9.7 (9.4-12.3) fL Immature Gran % (Auto) 0.2 % Neut % (Auto) 67.6 % Lymph % (Auto) 16.6 % [place] % (Auto) 13.7 % Eos % (Auto) 1.5 % Baso % (Auto) 0.4 % Neut # (Auto) 3.54 (1.4-6.5) K/uL Lymph # (Auto) 0.87 L (1.2-3.4) K/uL [place] # (Auto) 0.72 (0.24-0.82) K/uL Eos # (Auto) 0.08 (0-0.50) K/uL Baso # (Auto) 0.02 (0-0.2) K/uL Immature Gran # (Auto) 0.01 (0.00-0.02) K/uL Platelet Estimate Decreased L (Normal) PT (9.0-12.0) Seconds INR (0.9-1.1) APTT (21.0-31.0) Seconds PTT Ratio Sodium 130 L (136-145) mmol/L Potassium 3.5 (3.5-5.1) mmol/L Chloride 90 L (98-107) mmol/L Carbon Dioxide 26 (21-32) mmol/L Anion Gap 14 H (3-11) BUN 13 (6-23) mg/dl Creatinine 1.05 (0.6-1.2) mg/dl Est Cr Clr Drug Dosing Not Reportable Est GFR ( Amer) 69.7 ml/min Est GFR (Non-Af Amer) 60.2 ml/min BUN/Creatinine Ratio 12.4 (10-20) Glucose 118 H (70-99(Fasting)) mg/dl Calcium 9.0 (8.5-10.1) mg/dl Magnesium 1.7 (1.7-2.4) mg/dl Total Bilirubin 1.4 H (0.2-1.0) mg/dl AST 119 H (13-39) U/L ALT 68 H (7-52) U/L Alkaline Phosphatase 72 (34-104) U/L Total Protein 7.8 (6.0-8.3) gm/dl Albumin 4.5 (3.4-5.0) gm/dl Globulin 3.3 (2.5-4.0) gm/dl Albumin/Globulin Ratio 1.4 (0.9-2) Urine Color Urine Appearance (Clear) Urine pH (4.5-7.5) Ur Specific [place] (1.000-1.030) Urine Protein (Negative) Urine Glucose (UA) (Negative) Urine Ketones (Negative) Urine Blood (Negative) Urine Nitrite (Negative) Urine Bilirubin (Negative) Urine Urobilinogen (Negative) Ur Leukocyte Esterase (Negative) Urine RBC (0-4) /hpf Urine WBC (0-5) /hpf Ur Epithelial Cells (0-5) /lpf Urine Bacteria (Negative) Ethyl Alcohol mg/dL < 10.0 (<10.0) mg/dl 06/04/22 06/04/22 Range/Units 18:25 19:20 WBC (4.8-10.8) K/ul RBC (3.93-5.22) M/uL Hgb (12.0-16.0) g/dl Hct (34.1-44.9) % MCV (80.0-100.0) fL MCH (25.0-34.0) pg MCHC (32.0-36.0) g/dL RDW Std Deviation (36.4-46.3) fL RDW Coeff of Marybeth (11.5-14.5) % Plt Count (130-400) K/uL MPV (9.4-12.3) fL Immature Gran % (Auto) % Neut % (Auto) % Lymph % (Auto) % [place] % (Auto) % Eos % (Auto) % Baso % (Auto) % Neut # (Auto) (1.4-6.5) K/uL Lymph # (Auto) (1.2-3.4) K/uL [place] # (Auto) (0.24-0.82) K/uL Eos # (Auto) (0-0.50) K/uL Baso # (Auto) (0-0.2) K/uL Immature Gran # (Auto) (0.00-0.02) K/uL Platelet Estimate (Normal) PT 11.1 (9.0-12.0) Seconds INR 1.0 (0.9-1.1) APTT 26.5 (21.0-31.0) Seconds PTT Ratio 1.0 Sodium (136-145) mmol/L Potassium (3.5-5.1) mmol/L Chloride (98-107) mmol/L Carbon Dioxide (21-32) mmol/L Anion Gap (3-11) BUN (6-23) mg/dl Creatinine (0.6-1.2) mg/dl Est Cr Clr Drug Dosing Est GFR ( Amer) ml/min Est GFR (Non-Af Amer) ml/min BUN/Creatinine Ratio (10-20) Glucose (70-99(Fasting)) mg/dl Calcium (8.5-10.1) mg/dl Magnesium (1.7-2.4) mg/dl Total Bilirubin (0.2-1.0) mg/dl AST (13-39) U/L ALT (7-52) U/L Alkaline Phosphatase (34-104) U/L Total Protein (6.0-8.3) gm/dl Albumin (3.4-5.0) gm/dl Globulin (2.5-4.0) gm/dl Albumin/Globulin Ratio (0.9-2) Urine Color Yellow Urine Appearance Clear (Clear) Urine pH 6.5 (4.5-7.5) Ur Specific [place] 1.004 (1.000-1.030) Urine Protein Negative (Negative) Urine Glucose (UA) Negative (Negative) Urine Ketones Trace H (Negative) Urine Blood Negative (Negative) Urine Nitrite Negative (Negative) Urine Bilirubin Negative (Negative) Urine Urobilinogen Negative (Negative) Ur Leukocyte Esterase Trace H (Negative) Urine RBC 0-4 (0-4) /hpf Urine WBC 0-5 (0-5) /hpf Ur Epithelial Cells 0-5 (0-5) /lpf Urine Bacteria 1+ H (Negative) Ethyl Alcohol mg/dL (<10.0) mg/dl Administered Medications Chlordiazepoxide HCl (Chlordiazepoxide Hcl 25 Mg Cap) 25 mg PO Q6H CASSANDRA; Taper Stop: 06/06/22 23:29 Last Admin: 06/04/22 23:31 Dose: 25 mg Documented By: JEANNETTE Folic Acid (Folic Acid 1 Mg Tab) 1 mg PO QAM CASSANDRA Stop: 07/04/22 23:02 Last Admin: 06/04/22 23:40 Dose: 1 mg Documented By: JEANNETTE Lactated Ringer's (Lr) 1,000 mls @ 125 mls/hr IV .Q8H CASSANDRA Stop: 07/04/22 23:02 Last Admin: 06/04/22 23:30 Dose: 125 mls/hr Documented By: JEANNETTE Lorazepam (Lorazepam 1 Mg Tab) 1 - 3 mg PO UD PRN; Protocol PRN Reason: EtoH Withdrawal AWSS 6-10+ Stop: 07/04/22 23:02 Last Admin: 06/04/22 23:30 Dose: 1 mg Documented By: JEANNETTE Thiamine HCl (Thiamine Hcl 100 Mg Tab) 100 mg PO QAM [facility] Stop: 07/04/22 23:02 Last Admin: 06/04/22 23:40 Dose: 100 mg Documented By: JEANNETTE Discontinued Medications Chlordiazepoxide HCl (Chlordiazepoxide Hcl 25 Mg Cap) 25 mg PO NOW ONE Stop: 06/04/22 19:42 Last Admin: 06/04/22 20:08 Dose: 25 mg Documented By: JACQUELINE Sodium Chloride (Nss 1000ml) 500 mls @ 999 mls/hr IV .Q31M ONE Stop: 06/04/22 20:11 Last Infusion: 06/04/22 20:44 Dose: 0 mls/hr Documented By: Admin: 06/04/22 20:08 Dose: 999 mls/hr Documented By: JACQUELINE Multivitamins 10 ml/ Thiamine HCl 100 mg/ Folic Acid 1 mg/Sodium Chloride 1,011.2 mls @ 1,011.2 mls/hr IV .Q1H ONE Stop: 06/04/22 20:40 Last Infusion: 06/04/22 22:30 Dose: 0 mls/hr Documented By: Admin: 06/04/22 20:44 Dose: 1,011.2 mls/hr Documented By: JACQUELINE Lorazepam (Lorazepam 2 Mg/1 Ml Vial) 1 mg IV NOW STA; Protocol Stop: 06/04/22 19:42 Last Admin: 06/04/22 20:08 Dose: 1 mg Documented By: JACQUELINE Ondansetron HCl (Ondansetron Inj 2 Mg/Ml 2 Ml Vial) 4 mg IV NOW STA Stop: 06/04/22 19:42 Last Admin: 06/04/22 20:08 Dose: 4 mg Documented By: KV Discharge Plan Visit Data Chief Complaint: Alcohol Withdrawal Stated Complaint: ALCOHOL WITHDRAWAL ED Provider: Satish Julien Discharge Problem: Alcohol abuse, Alcohol withdrawal, Acute hyponatremia, Elevated liver enzymes Patient Disposition: Admitted As Inpatient Condition: Fair Discharge Instructions Interventions: ED Discharge Assessment Last Done: 06/04/22 22:28
--- NOTE | 2022-06-04 20:40 | History & Physical Report ---
Date of Service June 04, 2022 Assessment & Plan (1) Alcohol withdrawal: Plan: Librium reduced dose taper as she has already gone through the majority of her alcohol withdrawal at this stage Lorazepam 1-3mg PO per AWSS (2) Anxiety: Plan: Continue desvenlafaxine, amitriptyline and propranolol PRN (3) Dehydration: Plan: NSS 500ml bolus LR @125ml/hr overnight Plan VTE Prophylaxis - low risk if mobile, chemical prophylaxis deferred Diet - regular Disposition - admit to med/tele Admission and Anticipated Discharge Date Admission Date: June 04, 2022 History of Present Illness Chief Complaint: Alcohol withdrawal Primary Care Provider: Latoya Valerio Diane Perla is a 56 year old male who presents to the ER with alcohol withdrawal symptoms. She reports returning to drinking alcohol for the last 2 weeks and stopped her Anatbuse 2 weeks prior to this to enable her to drink alcohol due to increased stress in her life revolving around her job. She has been drinking 3-4 bottles of wine a day. She tried to quit herself and stopped drinking on Thursday. She used some left over Ativan and Librium to help with withdrawal but ran out of benzodiazepines today therefore her withdrawal symptoms have been getting worse. Having withdrawal symptoms such as tremors, anxiety, constipation and visual hallucinations. She also reports ataxia but no vision changes. Previous she has tried inpatient rehabilitation four times in the last 4 years. She reports continuing to return to alcohol due to COVID, cancer, lonliness and anxiety. Allergies Allergy/AdvReac Type Severity Reaction Status Date / Time levothyroxine Allergy Severe facial Unverified 03/01/22 18:48 swelling minocycline [From Minocin] Allergy Mild Rash Verified 03/01/22 18:48 Sulfa (Sulfonamide Allergy Unknown PT DOESN'T Verified 03/01/22 18:48 Antibiotics) REMEMBER REACTION Home Medications Medication Instructions Recorded Confirmed Type amitriptyline 50 mg tablet 50 mg PO HS 12/13/19 06/04/22 History omeprazole magnesium 20 mg 20 mg PO QAM 12/13/19 06/04/22 History tablet,delayed release (Prilosec OTC) gabapentin 100 mg capsule 100 mg PO TID 04/10/20 06/04/22 History tamoxifen 20 mg tablet 20 mg PO QAM 06/14/20 06/04/22 History desvenlafaxine succinate 50 mg 100 mg PO QAM 02/17/22 06/04/22 History tablet,extended release 24 hr (Pristiq) atorvastatin 20 mg tablet 20 mg PO HS 02/18/22 06/04/22 History cetirizine 10 mg tablet (Zyrtec) 10 mg PO QAM 02/18/22 06/04/22 History fluticasone propionate 50 1 spray intranasal HS 02/18/22 06/04/22 History mcg/actuation nasal spray,suspension naltrexone 50 mg tablet 100 mg PO BID 02/18/22 06/04/22 History montelukast 10 mg tablet 10 mg PO QPM 03/01/22 06/04/22 History propranolol 20 mg tablet 20 mg PO BID 03/01/22 06/04/22 History azelastine 137 mcg (0.1 %) nasal 1 spray intranasal DAILY 05/15/22 06/04/22 History spray aerosol diltiazem HCl 30 mg tablet 30 mg PO BID PRN Tachycardia 05/15/22 06/04/22 History disulfiram 250 mg tablet 250 mg PO DAILY 05/15/22 06/04/22 History melatonin 5 mg tablet 5 mg PO HS PRN Insomnia 05/15/22 06/04/22 History metoprolol succinate 25 mg 25 mg PO DAILY 05/15/22 06/04/22 History tablet,extended release 24 hr Past Med/Surg History Medical History Alcoholism Anxiety Asthma hx Breast hematoma after procedure Left breast after biopsy in 11/2019 Depression Depression 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 Huynh) Rosacea Ventricular tachycardia from alcohol withdrawl Surgical History H/O colonoscopy 05/01/2016 - perianal skin tag, normal colon H/O esophagogastroduodenoscopy 07/04/2009 - EUS exam- No choledocholithiasis, No masses appreciated in the entire pancreas. EGD exam- Normal examined duodenum. Bilious gastric fluid. Mild gastritis ? bilious etiology. Bx neg for H. pylori. Prominent fold just distal to GEJ. Bx- Squamocolumnar mucosa with mild carditis and hyperplastic changes. Negative for intestinal metaplasia and dysplasia. Medium sized hiatus hernia." On 03/10/17 15:26 Rita Torressky wrote "07/04/2009- EUS exam- No choledocholithiasis, No masses appreciated in the entire pancreas. EGD exam- Normal examined duodenum. Bilious gastric fluid. Mild gastritis ? bilious etiology. This was biopsied to r/o H Pylori. Prominent fold just distal to GEJ. This was biopsied. Medium sized hiatus hernia." History of breast biopsy 11/30/2019 - Left Breast 02/08/2020 - Right Breast History of breast lump/mass excision 02/15/2020 - Right Breast History of dilation and curettage 2003 - s/p miscarriage History of lumpectomy of left breast 02/15/2020 History of lumpectomy of right breast 03/28/2020 History of mandibular surgery 1986 History of surgery 05/07/2016 - Anal Tag Removal S/P laparoscopic cholecystectomy 02/23/2004 Family History Mother Breast cancer, Onset Age: 76 Currently battling metastatic breast cancer Grandmother (Paternal) , Passed age 93 of stomach cancer No problems noted. Grandfather (Maternal) , Passed age 72 of colon cancer No problems noted. Father , Passed age 67 of complications from menigioma No problems noted. Aunt Breast cancer, Onset Age: 34 Alive and well Aunt Breast cancer, Onset Age: 62 alive and well Aunt Breast cancer, Onset Age: 62 Alive and well Brother Stroke Dementia Sister No problems noted. Son No problems noted. Other Family history non-contributory Social History Smoking Status: Never smoker Second Hand Exposure: No; Hx Alcohol Use: Yes Alcohol type: wine Alcohol Intake Frequency: 4 or More x per/Week Alcohol Intake Frequency Comment: 3 bottles of wine daily for past 30 days Hx Substance Use: No Preferred Language: French Communication Ability: Effective Visual Impairment: Limited Hearing Ability: Normal Furnace Process Supervisor Required: No Beliefs That Will Affect Care: None marital status: Current Living Situation: Alone Current Living Situation Comment: adult son lives w/ her current occupational status: 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 Other Information That Helps Us Care for You: No Feels Safe at Home: Yes Safety Concerns: Feels Safe At This Time Childhood Exposure to Second-Hand Smoke: Yes (Mom ) caffeine: Yes (daily ) during the past year weight has: remained stable Dental Care, Regularly: Yes Assistive Devices: CPAP and Glasses Review of Systems Review of Systems: All systems reviewed & are unremarkable except as noted in HPI & below Physical Exam Constitutional: WD/WN, vitals as above Eyes: PERRL, conjunctivae normal, anicteric sclerae ENMT: external ear and nose normal, oropharynx normal Neck: trachea midline, no thyromegaly Respiratory: normal respiratory effort, lungs clear to auscultation Cardiovascular: RRR, no murmur, no edema Gastrointestinal (Abdomen): normal bowel sounds, soft, nontender, no hepatosplenomegaly Neurologic: moves all extremities and awake; no focal motor deficits and not confused Speech / Cognition: normal speech Motor/Sensory: + tremor Cranial Nerves: PERRL and EOM intact bilaterally (without diplopia) Psychiatric: A+Ox3, euthymic affect Results & Data Results & Data ([facility]) Vital Signs (Past 12 Hours) Vital Signs Temp Pulse Pulse Resp BP BP Pulse Ox 06/04/22 19:22 72 16 100 06/04/22 19:22 64 17 115/79 100 06/04/22 17:54 37.4 C 77 19 138/93 100 O2 Del Method 06/04/22 19:22 Room Air 06/04/22 19:22 Room Air 06/04/22 17:54 Room Air Laboratory Results Abnormal lab results 06/04/22 06/04/22 06/04/22 Range/Units 18:25 18:25 18:25 RDW Std Deviation 46.9 H (36.4-46.3) fL Plt Count 121 L (130-400) K/uL Lymph # (Auto) 0.87 L (1.2-3.4) K/uL Platelet Estimate Decreased L (Normal) Sodium 130 L (136-145) mmol/L Chloride 90 L (98-107) mmol/L Anion Gap 14 H (3-11) Glucose 118 H (70-99(Fasting)) mg/dl Total Bilirubin 1.4 H (0.2-1.0) mg/dl AST 119 H (13-39) U/L ALT 68 H (7-52) U/L Urine Ketones Trace H (Negative) Ur Leukocyte Esterase Trace H (Negative) Urine Bacteria 1+ H (Negative) Medications Administered ER Medications Given: NSS 500 ml bolus Banana Bag 1L bolus Lorazepam 1mg IV Chlordiazepoxide 25mg PO ECG Indication: toxicologic Rate (beats per minute): 74 Rhythm: normal sinus Comparison ECG Date: from (March 03, 2022) Change: the following changes noted (ST no longer depressed in Lateral leads, T wave inversion no longer evident in Inferior leads) Code Status & VTE Plan Code Status Full VTE Prophylaxis Plan VTE Prophylaxis will be ordered: Yes PG Care Time/CCT Total # of Minutes Spent Total Time Spent with Patient: Total time spent is greater than 50% in coordination of care (as documented) at patient's floor/unit and/or counseling patient: Coding Level of Care Code 28556 Initial Inpt Care Lvl 2 Diagnoses Alcohol withdrawal F10.939 Anxiety F41.9 Dehydration E86.0
[2022-06-04] MEDS ORDERED: ACETAMINOPHEN 325 MG TAB PO PRN (23:03)
[2022-06-04] MEDS ORDERED: chlordiazePOXIDE ALCOHOL WITHDRAWL 25MG PO STA (23:03)
[2022-06-04] MEDS: LORazepam 1 MG TAB PO PRN (23:30)
[2022-06-04] MEDS: LACTATED RINGER'S 1,000 ML IV SCH (23:30)
[2022-06-04] MEDS: chlordiazePOXIDE HCl 25 MG CAP PO SCH (23:31)
[2022-06-04] MEDS: THIAMINE HCL 100 MG TAB PO SCH (23:40)
[2022-06-04] MEDS: FOLIC ACID 1 MG TAB PO SCH (23:40)
[2022-06-05] MEDS ORDERED: MELATONIN 3 MG TAB PO PRN (03:28)
[2022-06-05] MEDS ORDERED: PROPRANOLOL HCL 20 MG TAB PO PRN (03:56)
[2022-06-05] MEDS: chlordiazePOXIDE HCl 25 MG CAP PO SCH ×3 (06:21→17:53)
[2022-06-05 07:40] LABS: Basophils # (auto) 0.02 K/uL (0-0.2); Basophils % (auto) 0.6 %; Eosinophils # (auto) 0.13 K/uL (0-0.50); Hematocrit (blood only) 32.7 % (34.1-44.9); Hemoglobin 11.3 g/dl (12.0-16.0); Immature Granulocytes # (auto) 0.02 K/uL (0.00-0.02); Immature Granulocytes % (auto) 0.6 %; Lymphocytes # (auto) 1.03 K/uL (1.2-3.4); Mean Corpuscular Hemoglobin 31.7 pg (25.0-34.0); Mean Corpuscular Hgb Conc 34.6 g/dL (32.0-36.0); Mean Corpuscular Volume 91.9 fL (80.0-100.0); Mean Platelet Volume 9.9 fL (9.4-12.3); Monocytes # (auto) 0.37 K/uL (0.24-0.82); Monocytes % (auto) 11.5 %; Neutrophils # (auto) 1.65 K/uL (1.4-6.5); Neutrophils % (auto) 51.3 %; Platelet Count 90 K/uL (130-400); RDW Coefficient of Variation 14.6 % (11.5-14.5); RDW Standard Deviation 47.6 fL (36.4-46.3); Red Blood Count 3.56 M/uL (3.93-5.22); White Blood Count 3.22 K/ul (4.8-10.8)
[2022-06-05 07:47] LABS: Albumin Globulin Ratio 1.5 (0.9-2); Albumin Level 3.4 gm/dl (3.4-5.0); Bilirubin,Total 0.7 mg/dl (0.2-1.0); Calcium 7.8 mg/dl (8.5-10.1); Creatinine Clr Calc Pharmacy 78.7 ml/min; Est GFR (African American) 81.8 ml/min; Est GFR (Non-African American) 70.6 ml/min; Globulin 2.3 gm/dl (2.5-4.0); Potassium 2.9 mmol/L (3.5-5.1); Total Protein 5.7 gm/dl (6.0-8.3)
[2022-06-05] MEDS: LACTATED RINGER'S 1,000 ML IV SCH ×2 (08:22→16:11)
[2022-06-05] MEDS: MAGNESIUM SULFATE / D5W 1 GM/100 ML BAG IV SCH ×2 (08:27→10:33)
[2022-06-05] MEDS ORDERED: ONDANSETRON INJ 2 MG/ML 2 ML VIAL IV PRN (08:30)
[2022-06-05] MEDS ORDERED: NALTREXONE HCL 50 MG TAB PO SCH (09:00)
[2022-06-05] MEDS ORDERED: PROPRANOLOL HCL 20 MG TAB PO SCH (09:00)
[2022-06-05] MEDS: LORazepam 1 MG TAB PO PRN ×2 (09:14→21:00)
[2022-06-05] MEDS: CETIRIZINE HCL 10 MG TABLET PO SCH (09:20)
[2022-06-05] MEDS: FOLIC ACID 1 MG TAB PO SCH (09:20)
[2022-06-05] MEDS: GABAPENTIN 100 MG CAP PO SCH ×3 (09:20→20:40)
[2022-06-05] MEDS: PANTOprazole 40 MG TAB PO SCH (09:21)
[2022-06-05] MEDS: METOPROLOL SUCC 25MG EXT REL TAB PO SCH (09:21)
[2022-06-05] MEDS: THIAMINE HCL 100 MG TAB PO SCH (09:22)
[2022-06-05] MEDS: TAMOXIFEN CITRATE 10 MG TABLET PO SCH (09:22)
[2022-06-05] MEDS: POTASSIUM CHLORIDE CRTAB 20 MEQ TABCR PO SCH ×2 (09:22→20:40)
--- NOTE | 2022-06-05 12:25 | Electrocardiogram Report ---
Test Reason : Blood Pressure : / mmHG Vent. Rate : 074 BPM Atrial Rate : 074 BPM P-R Int : 166 ms QRS Dur : 092 ms QT Int : 406 ms P-R-T Axes : 055 025 044 degrees QTc Int : 450 ms Normal sinus rhythm Normal ECG When compared with ECG of 03-MAR-2022 11:54, Vent. rate has decreased BY [address] no longer depressed in Lateral leads T wave inversion no longer evident in Inferior leads Nonspecific T wave abnormality no longer evident in Lateral leads Confirmed by Mario Sarah ([id number]) on 06/05/2022 12:25:26 PM Referred By: REFERRED SELF Confirmed By:Franck Sarah
--- NOTE | 2022-06-05 16:27 | Hospitalist Progress Note ---
Date of Service June 05, 2022 Assessment & Plan (1) Alcohol withdrawal: Plan: Doing fairly well so far, is almost 4 days from her last drink No history of seizures She has been to inpatient rehab multiple times in the past. Currently is in IOP with [facility] and plans to attend partial hospitalization program remotely after discharge. No further nausea vomiting, still with fine tremor, no significant hypertension or tachycardia -Continue Librium taper as she has already gone through the majority of her alcohol withdrawal at this stage -Lorazepam 1-3mg PO per AWSS -Continue thiamine and folate -Plan to restart Antabuse on discharge -Give 1 g IV magnesium now -Zofran as needed for nausea -Continue IV fluids with LR and reduce rate to 75 mL/h -Continue home gabapentin 100 Mg p.o. 3 times daily (2) Anxiety: Plan: Continue desvenlafaxine, amitriptyline and propranolol PRN Check TSH in the morning Follow-up with therapist as an outpatient -Continue melatonin at nighttime for sleep (3) Elevated liver enzymes: Plan: Total bilirubin, AST and ALT all elevated on admission, INR normal, platelets mildly low Liver ultrasound from 2 years ago shows hepatic steatosis This is most likely all alcoholic hepatitis She has had her gallbladder removed, no abdominal pains LFTs all improving today Follow LFTs in the morning (4) Hypokalemia: Plan: Potassium low at 2.9 Replace IV magnesium and potassium chloride orally today Follow BMP and magnesium in the morning (5) Dehydration: Plan: Giving IV fluids as above Seems to be improving (6) Hypothyroidism: Plan: With a history of abnormal TSH is borderline in the past There is notation in the chart of her being allergic to levothyroxine with facial swelling Check TSH in the morning Plan VTE Prophylaxis -add on Lovenox Diet - regular Disposition -continued stay med/tele, but likely discharged home tomorrow Admission and Anticipated Discharge Date Admission Date: June 04, 2022 Subjective Patient reports still feeling shaky in the hands and little wobbly on her feet. No chest pain or shortness of breath, no abdominal pain. Had some mild nausea earlier which resolved on its own. She is eating and drinking. Last drink now almost 4 days ago. She reports that she is already in IOP with [facility] and has been in touch with them and she will be upgraded to a partial hospitalization program that is currently remote. Telemetry with normal sinus rhythm and normal rates Review of Systems Review of Systems: All systems reviewed & are unremarkable except as noted in HPI & below Physical Exam Constitutional: WD/WN, vitals as above Eyes: + anicteric sclerae ENMT: external ear and nose normal, oropharynx normal Neck: trachea midline, no thyromegaly Respiratory: normal respiratory effort, lungs clear to auscultation Cardiovascular: RRR, no murmur, no edema Gastrointestinal (Abdomen): normal bowel sounds, soft, nontender, no hepatosplenomegaly Musculoskeletal: Extremities: extremities normal to inspection; no cyanosis and no clubbing Skin: no rashes, warm and dry Neurologic: moves all extremities and awake; no focal motor deficits Motor/Sensory: + tremor (Fine tremor in the hands with intention) Psychiatric: A+Ox3, euthymic affect Results & Data Results & Data ([facility]) Vital Signs (Past 12 Hours) Vital Signs Temp Pulse Pulse Resp BP BP Pulse Ox 06/05/22 16:11 36.7 C 76 18 125/87 96 06/05/22 14:59 61 06/05/22 11:29 36.6 C 68 19 130/88 96 06/05/22 08:00 60 06/05/22 10:36 36.6 C 66 18 117/80 98 06/05/22 08:13 36.4 C L 63 18 116/83 100 O2 Del Method 06/05/22 16:11 Room Air 06/05/22 14:59 06/05/22 11:29 Room Air 06/05/22 08:00 06/05/22 10:36 Room Air 06/05/22 08:13 Room Air Laboratory Results 06/05/22 06/05/22 06/04/22 Range/Units 06:15 06:15 Unknown WBC 3.22 L (4.8-10.8) K/ul RBC 3.56 L (3.93-5.22) M/uL Hgb 11.3 L (12.0-16.0) g/dl Hct 32.7 L (34.1-44.9) % MCV 91.9 (80.0-100.0) fL MCH 31.7 (25.0-34.0) pg MCHC 34.6 (32.0-36.0) g/dL RDW Std Deviation 47.6 H (36.4-46.3) fL RDW Coeff of Marybeth 14.6 H (11.5-14.5) % Plt Count 90 L (130-400) K/uL MPV 9.9 (9.4-12.3) fL Immature Gran % (Auto) 0.6 % Neut % (Auto) 51.3 % Lymph % (Auto) 32.0 % [place] % (Auto) 11.5 % Eos % (Auto) 4.0 % Baso % (Auto) 0.6 % Neut # (Auto) 1.65 (1.4-6.5) K/uL Lymph # (Auto) 1.03 L (1.2-3.4) K/uL [place] # (Auto) 0.37 (0.24-0.82) K/uL Eos # (Auto) 0.13 (0-0.50) K/uL Baso # (Auto) 0.02 (0-0.2) K/uL Immature Gran # (Auto) 0.02 (0.00-0.02) K/uL Platelet Estimate (Normal) PT (9.0-12.0) Seconds INR (0.9-1.1) APTT (21.0-31.0) Seconds PTT Ratio Sodium 137 (136-145) mmol/L Potassium 2.9 L (3.5-5.1) mmol/L Chloride 102 (98-107) mmol/L Carbon Dioxide 27 (21-32) mmol/L Anion Gap 8 (3-11) BUN 12 (6-23) mg/dl Creatinine 0.92 (0.6-1.2) mg/dl Est Cr Clr Drug Dosing 78.7 Est GFR ( Amer) 81.8 ml/min Est GFR (Non-Af Amer) 70.6 ml/min BUN/Creatinine Ratio 13.0 (10-20) Glucose 145 H (70-99(Fasting)) mg/dl Calcium 7.8 L (8.5-10.1) mg/dl Magnesium (1.7-2.4) mg/dl Total Bilirubin 0.7 D (0.2-1.0) mg/dl AST 74 H (13-39) U/L ALT 49 (7-52) U/L Alkaline Phosphatase 59 (34-104) U/L Total Protein 5.7 L D (6.0-8.3) gm/dl Albumin 3.4 (3.4-5.0) gm/dl Globulin 2.3 L (2.5-4.0) gm/dl Albumin/Globulin Ratio 1.5 (0.9-2) Urine Color Urine Appearance (Clear) Urine pH (4.5-7.5) Ur Specific [place] (1.000-1.030) Urine Protein (Negative) Urine Glucose (UA) (Negative) Urine Ketones (Negative) Urine Blood (Negative) Urine Nitrite (Negative) Urine Bilirubin (Negative) Urine Urobilinogen (Negative) Ur Leukocyte Esterase (Negative) Urine RBC (0-4) /hpf Urine WBC (0-5) /hpf Ur Epithelial Cells (0-5) /lpf Urine Bacteria (Negative) Ethyl Alcohol mg/dL (<10.0) mg/dl SARS-CoV-2, RNA, NAAT NEGATIVE (NEGATIVE) 06/04/22 06/04/22 06/04/22 Range/Units 19:20 18:25 18:25 WBC (4.8-10.8) K/ul RBC (3.93-5.22) M/uL Hgb (12.0-16.0) g/dl Hct (34.1-44.9) % MCV (80.0-100.0) fL MCH (25.0-34.0) pg MCHC (32.0-36.0) g/dL RDW Std Deviation (36.4-46.3) fL RDW Coeff of Marybeth (11.5-14.5) % Plt Count (130-400) K/uL MPV (9.4-12.3) fL Immature Gran % (Auto) % Neut % (Auto) % Lymph % (Auto) % [place] % (Auto) % Eos % (Auto) % Baso % (Auto) % Neut # (Auto) (1.4-6.5) K/uL Lymph # (Auto) (1.2-3.4) K/uL [place] # (Auto) (0.24-0.82) K/uL Eos # (Auto) (0-0.50) K/uL Baso # (Auto) (0-0.2) K/uL Immature Gran # (Auto) (0.00-0.02) K/uL Platelet Estimate (Normal) PT 11.1 (9.0-12.0) Seconds INR 1.0 (0.9-1.1) APTT 26.5 (21.0-31.0) Seconds PTT Ratio 1.0 Sodium 130 L (136-145) mmol/L Potassium 3.5 (3.5-5.1) mmol/L Chloride 90 L (98-107) mmol/L Carbon Dioxide 26 (21-32) mmol/L Anion Gap 14 H (3-11) BUN 13 (6-23) mg/dl Creatinine 1.05 (0.6-1.2) mg/dl Est Cr Clr Drug Dosing Not Reportable Est GFR ( Amer) 69.7 ml/min Est GFR (Non-Af Amer) 60.2 ml/min BUN/Creatinine Ratio 12.4 (10-20) Glucose 118 H (70-99(Fasting)) mg/dl Calcium 9.0 (8.5-10.1) mg/dl Magnesium 1.7 (1.7-2.4) mg/dl Total Bilirubin 1.4 H (0.2-1.0) mg/dl AST 119 H (13-39) U/L ALT 68 H (7-52) U/L Alkaline Phosphatase 72 (34-104) U/L Total Protein 7.8 (6.0-8.3) gm/dl Albumin 4.5 (3.4-5.0) gm/dl Globulin 3.3 (2.5-4.0) gm/dl Albumin/Globulin Ratio 1.4 (0.9-2) Urine Color Yellow Urine Appearance Clear (Clear) Urine pH 6.5 (4.5-7.5) Ur Specific [place] 1.004 (1.000-1.030) Urine Protein Negative (Negative) Urine Glucose (UA) Negative (Negative) Urine Ketones Trace H (Negative) Urine Blood Negative (Negative) Urine Nitrite Negative (Negative) Urine Bilirubin Negative (Negative) Urine Urobilinogen Negative (Negative) Ur Leukocyte Esterase Trace H (Negative) Urine RBC 0-4 (0-4) /hpf Urine WBC 0-5 (0-5) /hpf Ur Epithelial Cells 0-5 (0-5) /lpf Urine Bacteria 1+ H (Negative) Ethyl Alcohol mg/dL (<10.0) mg/dl SARS-CoV-2, RNA, NAAT (NEGATIVE) 06/04/22 06/04/22 Range/Units 18:25 18:25 WBC 5.24 (4.8-10.8) K/ul RBC 4.08 (3.93-5.22) M/uL Hgb 13.2 (12.0-16.0) g/dl Hct 36.8 (34.1-44.9) % MCV 90.2 (80.0-100.0) fL MCH 32.4 (25.0-34.0) pg MCHC 35.9 (32.0-36.0) g/dL RDW Std Deviation 46.9 H (36.4-46.3) fL RDW Coeff of Marybeth 14.5 (11.5-14.5) % Plt Count 121 L (130-400) K/uL MPV 9.7 (9.4-12.3) fL Immature Gran % (Auto) 0.2 % Neut % (Auto) 67.6 % Lymph % (Auto) 16.6 % [place] % (Auto) 13.7 % Eos % (Auto) 1.5 % Baso % (Auto) 0.4 % Neut # (Auto) 3.54 (1.4-6.5) K/uL Lymph # (Auto) 0.87 L (1.2-3.4) K/uL [place] # (Auto) 0.72 (0.24-0.82) K/uL Eos # (Auto) 0.08 (0-0.50) K/uL Baso # (Auto) 0.02 (0-0.2) K/uL Immature Gran # (Auto) 0.01 (0.00-0.02) K/uL Platelet Estimate Decreased L (Normal) PT (9.0-12.0) Seconds INR (0.9-1.1) APTT (21.0-31.0) Seconds PTT Ratio Sodium (136-145) mmol/L Potassium (3.5-5.1) mmol/L Chloride (98-107) mmol/L Carbon Dioxide (21-32) mmol/L Anion Gap (3-11) BUN (6-23) mg/dl Creatinine (0.6-1.2) mg/dl Est Cr Clr Drug Dosing Est GFR ( Amer) ml/min Est GFR (Non-Af Amer) ml/min BUN/Creatinine Ratio (10-20) Glucose (70-99(Fasting)) mg/dl Calcium (8.5-10.1) mg/dl Magnesium (1.7-2.4) mg/dl Total Bilirubin (0.2-1.0) mg/dl AST (13-39) U/L ALT (7-52) U/L Alkaline Phosphatase (34-104) U/L Total Protein (6.0-8.3) gm/dl Albumin (3.4-5.0) gm/dl Globulin (2.5-4.0) gm/dl Albumin/Globulin Ratio (0.9-2) Urine Color Urine Appearance (Clear) Urine pH (4.5-7.5) Ur Specific [place] (1.000-1.030) Urine Protein (Negative) Urine Glucose (UA) (Negative) Urine Ketones (Negative) Urine Blood (Negative) Urine Nitrite (Negative) Urine Bilirubin (Negative) Urine Urobilinogen (Negative) Ur Leukocyte Esterase (Negative) Urine RBC (0-4) /hpf Urine WBC (0-5) /hpf Ur Epithelial Cells (0-5) /lpf Urine Bacteria (Negative) Ethyl Alcohol mg/dL < 10.0 (<10.0) mg/dl SARS-CoV-2, RNA, NAAT (NEGATIVE) PG Care Time/CCT Total # of Minutes Spent Total Time Spent with Patient: Total time spent is greater than 50% in coordination of care (as documented) at patient's floor/unit and/or counseling patient: Coding Level of Care Code 16269 Subseq Hosp Care Lvl 2 Diagnoses Alcohol withdrawal F10.939 Anxiety F41.9 Elevated liver enzymes R74.8 Hypokalemia E87.6 Dehydration E86.0 Hypothyroidism E03.9
[2022-06-05] MEDS ORDERED: ENOXAPARIN INJ 40 MG/0.4 ML SYR SQ SCH (18:00)
[2022-06-05] MEDS ORDERED: ATORVASTATIN 20 MG TAB PO SCH (21:00)
[2022-06-05] MEDS ORDERED: AMITRIPTYLINE HCL 50 MG TAB PO SCH (21:00)
[2022-06-05] MEDS ORDERED: MONTELUKAST SODIUM 10 MG TABLET PO SCH (21:00)
[2022-06-05] MEDS ORDERED: DOCUSATE SODIUM 100 MG CAP PO PRN (22:45)
[2022-06-06] MEDS: chlordiazePOXIDE HCl 25 MG CAP PO SCH ×2 (00:38→09:15)
[2022-06-06] MEDS: LACTATED RINGER'S 1,000 ML IV SCH (01:03)
[2022-06-06 06:52] LABS: Basophils # (auto) 0.01 K/uL (0-0.2); Basophils % (auto) 0.3 %; Eosinophils # (auto) 0.17 K/uL (0-0.50); Eosinophils % (auto) 4.9 %; Hematocrit (blood only) 32.5 % (34.1-44.9); Hemoglobin 11.2 g/dl (12.0-16.0); Immature Granulocytes # (auto) 0.02 K/uL (0.00-0.02); Immature Granulocytes % (auto) 0.6 %; Lymphocytes # (auto) 0.95 K/uL (1.2-3.4); Lymphocytes % (auto) 27.5 %; Mean Corpuscular Hemoglobin 32.2 pg (25.0-34.0); Mean Corpuscular Hgb Conc 34.5 g/dL (32.0-36.0); Mean Corpuscular Volume 93.4 fL (80.0-100.0); Mean Platelet Volume 10.1 fL (9.4-12.3); Monocytes # (auto) 0.35 K/uL (0.24-0.82); Monocytes % (auto) 10.1 %; Neutrophils # (auto) 1.95 K/uL (1.4-6.5); Neutrophils % (auto) 56.6 %; Platelet Count 89 K/uL (130-400); RDW Coefficient of Variation 15.2 % (11.5-14.5); RDW Standard Deviation 50.8 fL (36.4-46.3); Red Blood Count 3.48 M/uL (3.93-5.22); White Blood Count 3.45 K/ul (4.8-10.8)
[2022-06-06 07:23] LABS: Alanine Aminotransferase 42 U/L (7-52); Albumin Globulin Ratio 1.4 (0.9-2); Albumin Level 3.2 gm/dl (3.4-5.0); Alkaline Phosphatase 49 U/L (34-104); Anion Gap 6 (3-11); BUN Creatinine Ratio 10.8 (10-20); Bilirubin,Total 0.5 mg/dl (0.2-1.0); Blood Urea Nitrogen 10 mg/dl (6-23); Calcium 7.9 mg/dl (8.5-10.1); Carbon Dioxide 26 mmol/L (21-32); Chloride 105 mmol/L (98-107); Creatinine Clr Calc Pharmacy 80.3 ml/min; Est GFR (African American) 80.8 ml/min; Est GFR (Non-African American) 69.7 ml/min; Globulin 2.3 gm/dl (2.5-4.0); Glucose 132 mg/dl (70-99(Fasting)); Magnesium 1.9 mg/dl (1.7-2.4); Sodium 137 mmol/L (136-145); Total Protein 5.5 gm/dl (6.0-8.3)
[2022-06-06 07:31] LABS: Thyroid Stimulating Hormone 5.69 uIu/ml (0.300-4.500)
[2022-06-06 07:41] LABS: Folate (Folic Acid) 12.44 ng/ml (>5.38)
[2022-06-06 08:10] LABS: T4 Free Thyroxine 0.98 ng/dl (0.61-1.60)
[2022-06-06 08:19] VITALS: PULSE 58; TEMP 97.9; O2SAT 96
[2022-06-06] MEDS: CETIRIZINE HCL 10 MG TABLET PO SCH (09:16)
[2022-06-06] MEDS: FOLIC ACID 1 MG TAB PO SCH (09:16)
[2022-06-06] MEDS: GABAPENTIN 100 MG CAP PO SCH (09:17)
[2022-06-06] MEDS: PANTOprazole 40 MG TAB PO SCH (09:18)
[2022-06-06] MEDS: THIAMINE HCL 100 MG TAB PO SCH (09:18)
[2022-06-06] MEDS: METOPROLOL SUCC 25MG EXT REL TAB PO SCH (09:18)
[2022-06-06] MEDS: TAMOXIFEN CITRATE 10 MG TABLET PO SCH (09:18)
[2022-06-06] MEDS: POTASSIUM CHLORIDE CRTAB 20 MEQ TABCR PO SCH (09:18)
[2022-06-06 09:36] LABS: Potassium 3.8 mmol/L (3.5-5.1)
--- NOTE | 2022-06-06 09:51 | Discharge Summary ---
Date of Service June 06, 2022 Admission HPI Per Admitting Provider Diane Perla is a 56 year old male who presents to the ER with alcohol withdrawal symptoms. She reports returning to drinking alcohol for the last 2 weeks and stopped her Anatbuse 2 weeks prior to this to enable her to drink alcohol due to increased stress in her life revolving around her job. She has been drinking 3-4 bottles of wine a day. She tried to quit herself and stopped drinking on Thursday. She used some left over Ativan and Librium to help with withdrawal but ran out of benzodiazepines today therefore her withdrawal symptoms have been getting worse. Having withdrawal symptoms such as tremors, anxiety, constipation and visual hallucinations. She also reports ataxia but no vision changes. Previous she has tried inpatient rehabilitation four times in the last 4 years. She reports continuing to return to alcohol due to COVID, cancer, lonliness and anxiety. Principal Diagnosis Alcohol use disorder with withdrawal, hypokalemia, dehydration Discharge Exam Constitutional WD/WN, vitals as above Eyes + anicteric sclerae ENMT external ear and nose normal, oropharynx normal Neck trachea midline, no thyromegaly Respiratory normal respiratory effort, lungs clear to auscultation Cardiovascular RRR, no murmur, no edema Gastrointestinal (Abdomen) normal bowel sounds, soft, nontender, no hepatosplenomegaly Musculoskeletal Extremities: extremities normal to inspection; no cyanosis and no clubbing Skin no rashes, warm and dry Neurologic moves all extremities and awake; no focal motor deficits Psychiatric A+Ox3, euthymic affect Discharge Data Allergies Allergy/AdvReac Type Severity Reaction Status Date / Time levothyroxine Allergy Severe facial Unverified 03/01/22 18:48 swelling minocycline [From Minocin] Allergy Mild Rash Verified 03/01/22 18:48 Sulfa (Sulfonamide Allergy Unknown PT DOESN'T Verified 03/01/22 18:48 Antibiotics) REMEMBER REACTION Consultations 06/04/22 20:06 ED Decision to Admit Stat Hospital Course (1) Alcohol withdrawal: Doing fairly well so far, is now 5 days from her last drink No history of seizures She has been to inpatient rehab multiple times in the past. [facility] and plans to attend partial hospitalization program remotely after discharge. No further nausea vomiting, tremor improving,no hypertension or tachycardia, is evelyn po, independently ambulating, no delirium -Continue Librium taperon discharge with 25mg po tid x 1 day, then bid x 1 day, then once daily x 1 day, then stop -restart Antabuse 250mg po once daily on discharge -Continue thiamine and folate -Continue home gabapentin 100 Mg p.o. 3 times daily Stable for dc to home (2) Anxiety: Continue desvenlafaxine, amitriptyline and propranolol PRN TSH borderline low function but FT4 normal Follow-up with therapist as an outpatient -Continue melatonin at nighttime for sleep (3) Elevated liver enzymes: Total bilirubin, AST and ALT all elevated on admission, INR normal, platelets mildly low Liver ultrasound from 2 years ago shows hepatic steatosis This is most likely all alcoholic hepatitis LFTs improving She has had her gallbladder removed, no abdominal pains Follow as outpt, consider GI referral (4) Hypokalemia: Potassium low at 2.9 and replaced, now normal Replaced IV magnesium (5) Dehydration: resolved with IVFs 2/2 alcohol use and withdrawal (6) Hypothyroidism: With a history of abnormal TSH is borderline in the past There is notation in the chart of her being allergic to levothyroxine with facial swelling, but she can tolerate tirosint TSH here mildly elevated at 5 with normal FT4 no tx for now, f/u as outpt Plan VTE Prophylaxis - Lovenox Diet - regular Disposition -dc to home Total Time Total Time Spent Total Time Spent (In Minutes): 35 min Discharge Plan Discharge Items Patient Disposition: Home - Self-Care Reason For Visit: ALCOHOL WITHDRAWAL Discharge Diagnosis: Alcohol withdrawal, Alcohol use disorder Condition on Discharge: Good Activity: Resume your previous activity Non-emergency contact: Primary Care Provider Call non-emergency contact if: you have any medication questions and your symptoms worsen Follow-up/Referrals: Latoya Valerio [Primary Care Provider] - (Follow up within 1 week.) Diet: Regular Addtl Attending Provider Instructions: Please finish out the Librium taper as directed. You can restart your Antabuse once daily. Follow up with AA as well as [facility] as discussed. It is very important for you to remain abstinent from alcohol. Follow up with your PCP within 1 week and consider referral to Gastroenterology as an outpatient to follow you for your liver issues related to alcohol use. Pending Studies at Discharge: No Stand-Alone Forms: [employer], Smoking Cessation Medications and DC Order Prescriptions: New chlordiazepoxide HCl 25 mg Capsule 25 mg PO TID Qty: 6 0RF Rx Instructions: x 1 day then bid x 1 day then qday x 1 day, then STOP folic acid 1 mg Tablet 1 mg PO QAM Qty: 30 0RF Rx Instructions: OTC thiamine HCl (vitamin B1) 100 mg Tablet 100 mg PO QAM Qty: 30 0RF Rx Instructions: OTC Continued azelastine 137 mcg (0.1 %) aerosol,spray 1 spray intranasal DAILY Rx Instructions: administer into each nostril diltiazem HCl 30 mg tablet 30 mg PO BID PRN (Reason: Tachycardia) melatonin 5 mg tablet 5 mg PO HS PRN (Reason: Insomnia) amitriptyline 50 mg tablet 50 mg PO HS omeprazole magnesium [Prilosec OTC] 20 mg Tablet,Delayed Release (Dr/Ec) 20 mg PO QAM gabapentin 100 mg capsule 100 mg PO TID tamoxifen 20 mg tablet 20 mg PO QAM desvenlafaxine succinate [Pristiq] 50 mg tablet extended release 24 hr 100 mg PO QAM atorvastatin 20 mg Tablet 20 mg PO HS cetirizine [Zyrtec] 10 mg Tablet 10 mg PO QAM fluticasone propionate 50 mcg/actuation [place],Suspension 1 spray INTRANASAL HS montelukast 10 mg tablet 10 mg PO QPM propranolol 20 mg tablet 20 mg PO BID metoprolol succinate 25 mg tablet extended release 24 hr 25 mg PO DAILY disulfiram 250 mg tablet 250 mg PO DAILY Qty: 30 0RF Discontinued naltrexone 50 mg Tablet 100 mg PO BID Discharge Orders: Discharge Order (Routine); Ordered 06/06/22 Ordered By: Laura Nelson Admission Data Admit Date/Time: 06/04/22 21:20 Attending Provider: Laura Nelson Admit Provider: Alexis Delgado Primary Care Provider: Latoya Valerio Other Providers: Alexis Delgado Coding Level of Care Code D/C DAY MANAGEMENT >30 MINS Diagnoses Alcohol withdrawal F10.939 Anxiety F41.9 Elevated liver enzymes R74.8 Hypokalemia E87.6 Dehydration E86.0 Hypothyroidism E03.9
[2022-06-06 10:24] VITALS: BP 99/66
[2022-06-07] MEDS ORDERED: chlordiazePOXIDE HCl 5 MG CAP PO SCH (21:30)
== END 2022-06-06 11:19 | disposition home or self-care (01) | DRG 897 ==
LOC: ED 17:50 → SUATTDRO 21:20 → 2N 21:20

== ENCOUNTER 2022-07-25 10:31 | Inpatient (IN) ==
[2022-07-25] MEDS ORDERED: LORazepam 2 MG/1 ML VIAL IV STA ×2 (10:53→12:23)
[2022-07-25] MEDS ORDERED: SODIUM CHLORIDE 0.9% 1000ML 1,000 ML IV ONE (10:53)
[2022-07-25] MEDS ORDERED: THIAMINE HCL 100 MG in SYRINGE 9 ML IV STA (10:54)
[2022-07-25] MEDS ORDERED: FOLIC ACID 1 MG in SYRINGE 9.8 ML IV STA (10:54)
--- NOTE | 2022-07-25 11:01 | Emergency Department Note ---
Impression & Plan Alcohol withdrawal hallucinosis ID ED Provider Note HPI: The patient is a 56-year-old female who presents the emergency department with a chief complaint of alcohol withdrawal. Patient states that she has been drinking about 4 bottles of wine a day. Patient states that she has not been drinking today and her last drink was yesterday evening. Per chart review patient was recently seen in the emergency department with alcohol intoxication, sent home with a Librium taper, patient tells me that she does not remember this. Patient states that she is also been having hallucinations. Patient states that one of her friends told her son that she had been drinking heavily and she now wants to quit drinking altogether. Therefore she was not drinking alcohol this morning. On arrival to the ED the patient is noted to be tremulous, she is mildly tachycardic, she is able to give me a coherent history at the bedside. ROS: -General: Concern for alcohol withdrawal *10 point review systems was conducted and is otherwise negative unless stated above *Outpatient medications and allergy history reviewed PE: General: Alert HEENT: Normocephalic, atraumatic Eyes: Extraocular eye movement is intact, no scleral erythema Pulmonary: Clear to auscultation bilaterally, no wheezing Cardio: Tachycardic rate and regular rhythm GI: Abdomen is soft, nontender : No suprapubic tenderness MSK: No evidence of trauma or malformation of the extremities, no edema Skin: No evidence of rash Neuro: Resting tremor of the bilateral upper extremities Psychiatric: 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 IV fluids were ordered as well as thiamine and folate, alcohol level is noted to be 42, patient states her last drink was at some point last evening, patient was given multiple doses of Ativan here in the ED with only minimal improvement in her symptoms. On my reevaluation patient does appear to be actively going through withdrawal therefore will be admitted to the hospitalist service following my discussion with Dr. Delgado. Patient was in agreement for admission and she was admitted in stable condition for further care. * CRITICAL CARE TIME: 45 min -Management of acute alcohol withdrawal with tachycardia and active tremulousness requiring administration of IV benzodiazepines, discussion with other healthcare providers, arrangement of admission Diagnosis: 1. Alcohol withdrawal, acute 2. Hallucinations secondary to alcohol withdrawal Disposition: Admission Jesus Davis DO Emergency Medicine Past Med/Surg History Medical History Abnormal TSH "on the borderline'-monitoring it and no meds Alcoholism hx-quit drinking most recently 06/05/22. 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 Pt was extu bated and didn't start breathing right away, so they reintubated her and took her to ICU; I told the doctors that I was definitely not drinking the day of my procedure either." History of sleep apnea CPap Hypothyroidism monitoring levels d/t allergy to levothyroxine Insomnia Migraine Mood disorder Palpitations "related to drinking, I had SVT's and if I don't drink, I don't have them; have been to the ER to have them checked" f/u Dr. Healy, [facility] Post traumatic stress disorder PSVT (paroxysmal supraventricular tachycardia) with alcohol withdrawl, no problems recently - does follow cardiology S (Dr. Huynh) Rosacea hx Schatzki's ring Ventricular tachycardia from alcohol withdrawl Surgical History H/O colonoscopy 05/01/2016 - perianal skin tag, normal colon H/O esophagogastroduodenoscopy 07/04/2009 - EUS exam- No choledocholithiasis, No masses appreciated in the entire pancreas. EGD exam- Normal examined duodenum. Bilious gastric fluid. Mild gastritis ? bilious etiology. Bx neg for H. pylori. Prominent fold just distal to GEJ. Bx- Squamocolumnar mucosa with mild carditis and hyperplastic changes. Negative for intestinal metaplasia and dysplasia. Medium sized hiatus hernia." On 03/10/17 15:26 Rita España wrote "07/04/2009- EUS exam- No choledocholithiasis, No masses appreciated in the entire pancreas. EGD exam- Normal examined duodenum. Bilious gastric fluid. Mild gastritis ? bilious etiology. This was biopsied to r/o H Pylori. Prominent fold just distal to GEJ. This was biopsied. Medium sized hiatus hernia." History of breast biopsy 11/30/2019 - Left Breast 02/08/2020 - Right Breast History of dilation and curettage 2003 - s/p miscarriage History of lumpectomy of left breast x1; x20 radiation tx., no chemo History of lumpectomy of right breast x2; radiation tx [id number] History of mandibular surgery 1985 History of surgery 05/07/2016 - Anal Tag Removal S/P laparoscopic cholecystectomy 02/23/2004 Family History Mother Breast cancer, Onset Age: 76 Currently battling metastatic breast cancer Grandmother (Paternal) , Passed age 93 of stomach cancer No problems noted. Grandfather (Maternal) , Passed age 72 of colon cancer No problems noted. Father , Passed age 67 of complications from menigioma No problems noted. Aunt Breast cancer, Onset Age: 34 Alive and well Aunt Breast cancer, Onset Age: 62 alive and well Aunt Breast cancer, Onset Age: 62 Alive and well Brother Stroke Dementia Sister No problems noted. Son No problems noted. Other Family history non-contributory Social History Smoking Status: Never smoker Second Hand Exposure: No; Hx Alcohol Use: Yes Alcohol type: wine Alcohol Intake Frequency: 4 or More x per/Week Alcohol Intake Frequency Comment: 3 bottles of wine daily for past 30 days Hx Substance Use: No Preferred Language: French Communication Ability: Effective Visual Impairment: Limited Hearing Ability: Normal Stock Raiser Required: No Beliefs That Will Affect Care: None marital status: Current Living Situation: Alone Current Living Situation Comment: has [employer] students/ short term workers renting rooms at her home current occupational status: 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 Feels Safe at Home: Yes Safety Concerns: Feels Safe At This Time Childhood Exposure to Second-Hand Smoke: Yes (Mom ) caffeine: Yes (daily ) during the past year weight has: remained stable Dental Care, Regularly: Yes Assistive Devices: Glasses Allergies Allergies Allergy/AdvReac Type Severity Reaction Status Date / Time levothyroxine Allergy Severe facial Verified 07/22/22 17:02 swelling minocycline [From Minocin] Allergy Mild Rash Verified 07/22/22 17:02 Sulfa (Sulfonamide Allergy Unknown PT DOESN'T Verified 07/22/22 17:02 Antibiotics) REMEMBER REACTION Home Meds Home Medications Medication Instructions Recorded Confirmed amitriptyline 50 mg tablet 50 mg PO HS 12/13/19 07/22/22 omeprazole magnesium 20 mg 20 mg PO QA 12/13/19 07/22/22 tablet,delayed release (Prilosec OTC) gabapentin 100 mg capsule 100 mg PO BID 04/10/20 07/22/22 desvenlafaxine succinate 50 mg 100 mg PO QAM 02/17/22 07/22/22 tablet,extended release 24 hr (Pristiq) atorvastatin 20 mg tablet 20 mg PO 02/18/22 07/22/22 cetirizine 10 mg tablet (Zyrtec) 10 mg PO QAM 02/18/22 07/22/22 fluticasone propionate 50 1 spray intranasal HS 02/18/22 07/22/22 mcg/actuation nasal spray,suspension montelukast 10 mg tablet 10 mg PO HS 03/01/22 07/22/22 propranolol 20 mg tablet 20 mg PO BID 03/01/22 07/22/22 azelastine 137 mcg (0.1 %) nasal 1 spray intranasal QA 05/15/22 07/22/22 spray aerosol melatonin 5 mg tablet 5 mg PO HS PRN Insomnia 05/15/22 07/22/22 disulfiram 250 mg tablet 250 mg PO QAM 06/24/22 07/22/22 lorazepam 1 mg tablet 1 mg PO QA PRN Anxiety 06/24/22 07/22/22 naltrexone 50 mg tablet 50 mg PO BID 06/24/22 07/22/22 anastrozole 1 mg tablet 1 mg PO QAM 07/22/22 07/22/22 metoprolol succinate 50 mg 50 mg PO QAM 07/22/22 07/22/22 tablet,extended release 24 hr Previous Rx's Medication Instructions Recorded folic acid 1 mg tablet 1 mg PO QAM #30 tabs 06/06/22 thiamine HCl (vitamin B1) 100 mg 100 mg PO QAM #30 tabs 06/06/22 tablet chlordiazepoxide HCl 25 mg capsule See Rx Instructions .Route 07/22/22 .COMPLEX #20 caps Results & Data (ED) Vital Signs Vital Signs - 24 hr 07/25/22 10:40 07/25/22 11:39 07/25/22 11:09 Temperature 36.9 C Temperature Source Temporal Artery Scan Pulse Rate 103 H 65 Respiratory Rate 18 20 Blood Pressure 108/74 Blood Pressure Mean 85 Pulse Oximetry 98 97 Oxygen Delivery Method Room Air Room Air Sepsis Recent Fever Within 48 Hours No Sepsis New/Unexplained Change in Mental Status No Sepsis Action Taken by Nursing No Action Required 07/25/22 11:30 07/25/22 12:00 07/25/22 12:39 Temperature Temperature Source Pulse Rate 66 72 64 Respiratory Rate 19 23 20 Blood Pressure Blood Pressure Mean Pulse Oximetry Oxygen Delivery Method Sepsis Recent Fever Within 48 Hours Sepsis New/Unexplained Change in Mental Status Sepsis Action Taken by Nursing Laboratory Data Result diagrams: 07/25/22 11:13 07/25/22 11:15 Lab Results 07/25/22 07/25/22 07/25/22 Range/Units 11:13 11:15 11:15 WBC 4.44 L (4.8-10.8) K/ul RBC 4.10 (3.93-5.22) M/uL Hgb 13.0 (12.0-16.0) g/dl Hct 39.0 (34.1-44.9) % MCV 95.1 (80.0-100.0) fL MCH 31.7 (25.0-34.0) pg MCHC 33.3 (32.0-36.0) g/dL RDW Std Deviation 52.9 H (36.4-46.3) fL RDW Coeff of Marybeth 15.1 H (11.5-14.5) % Plt Count 131 (130-400) K/uL MPV 9.8 (9.4-12.3) fL Immature Gran % (Auto) 0.5 % Neut % (Auto) 67.8 % Lymph % (Auto) 19.6 % [place] % (Auto) 8.3 % Eos % (Auto) 2.9 % Baso % (Auto) 0.9 % Neut # (Auto) 3.01 (1.4-6.5) K/uL Lymph # (Auto) 0.87 L (1.2-3.4) K/uL [place] # (Auto) 0.37 (0.24-0.82) K/uL Eos # (Auto) 0.13 (0-0.50) K/uL Baso # (Auto) 0.04 (0-0.2) K/uL Immature Gran # (Auto) 0.02 (0.00-0.02) K/uL Sodium 136 (136-145) mmol/L Potassium 3.7 (3.5-5.1) mmol/L Chloride 96 L (98-107) mmol/L Carbon Dioxide 24 (21-32) mmol/L Anion Gap 16 H (3-11) BUN 13 (6-23) mg/dl Creatinine 0.87 (0.6-1.2) mg/dl Est Cr Clr Drug Dosing Not Reportable Est GFR ( Amer) 87.5 ml/min Est GFR (Non-Af Amer) 75.5 ml/min BUN/Creatinine Ratio 14.9 (10-20) Glucose 154 H (70-99(Fasting)) mg/dl Calcium 8.7 (8.5-10.1) mg/dl Total Bilirubin 1.2 H (0.2-1.0) mg/dl AST 94 H (13-39) U/L ALT 75 H (7-52) U/L Alkaline Phosphatase 62 (34-104) U/L Total Protein 7.0 (6.0-8.3) gm/dl Albumin 4.3 (3.4-5.0) gm/dl Globulin 2.7 (2.5-4.0) gm/dl Albumin/Globulin Ratio 1.6 (0.9-2) Ethyl Alcohol mg/dL 46.2 H (<10.0) mg/dl SARS-CoV-2, RNA, NAAT (NEGATIVE) 09/02/22 Range/Units 11:44 WBC (4.8-10.8) K/ul RBC (3.93-5.22) M/uL Hgb (12.0-16.0) g/dl Hct (34.1-44.9) % MCV (80.0-100.0) fL MCH (25.0-34.0) pg MCHC (32.0-36.0) g/dL RDW Std Deviation (36.4-46.3) fL RDW Coeff of Marybeth (11.5-14.5) % Plt Count (130-400) K/uL MPV (9.4-12.3) fL Immature Gran % (Auto) % Neut % (Auto) % Lymph % (Auto) % [place] % (Auto) % Eos % (Auto) % Baso % (Auto) % Neut # (Auto) (1.4-6.5) K/uL Lymph # (Auto) (1.2-3.4) K/uL [place] # (Auto) (0.24-0.82) K/uL Eos # (Auto) (0-0.50) K/uL Baso # (Auto) (0-0.2) K/uL Immature Gran # (Auto) (0.00-0.02) K/uL Sodium (136-145) mmol/L Potassium (3.5-5.1) mmol/L Chloride (98-107) mmol/L Carbon Dioxide (21-32) mmol/L Anion Gap (3-11) BUN (6-23) mg/dl Creatinine (0.6-1.2) mg/dl Est Cr Clr Drug Dosing Est GFR ( Amer) ml/min Est GFR (Non-Af Amer) ml/min BUN/Creatinine Ratio (10-20) Glucose (70-99(Fasting)) mg/dl Calcium (8.5-10.1) mg/dl Total Bilirubin (0.2-1.0) mg/dl AST (13-39) U/L ALT (7-52) U/L Alkaline Phosphatase (34-104) U/L Total Protein (6.0-8.3) gm/dl Albumin (3.4-5.0) gm/dl Globulin (2.5-4.0) gm/dl Albumin/Globulin Ratio (0.9-2) Ethyl Alcohol mg/dL (<10.0) mg/dl SARS-CoV-2, RNA, NAAT NEGATIVE (NEGATIVE) Administered Medications Lorazepam (Lorazepam 1 Mg Tab) 1 mg PO UD PRN; Protocol PRN Reason: EtOH Withdrawal AWSS Score 6,7 Stop: 08/24/22 14:35 Last Admin: 07/25/22 16:45 Dose: 1 mg Documented By: [id number] Admin: 07/25/22 14:50 Dose: 1 mg Documented By: [id number] Miscellaneous (Pristiq- Order Awaiting Action) 1 each N/A QS [facility] Stop: 08/24/22 15:59 Last Admin: 07/25/22 16:13 Dose: Not Given Documented By: [id number] Pantoprazole Sodium (Pantoprazole 40 Mg Tab) 40 mg PO QAM [facility] Stop: 08/24/22 14:59 Last Admin: 07/25/22 16:14 Dose: 40 mg Documented By: [id number] Discontinued Medications Sodium Chloride (Nss 1000ml) 1,000 mls @ 999 mls/hr IV .Q1H1M ONE Stop: 07/25/22 11:53 Last Infusion: 07/25/22 12:42 Dose: 0 mls/hr Documented By: Admin: 07/25/22 11:16 Dose: 999 mls/hr Documented By: AM Thiamine HCl 100 mg/ Syringe 10 mls @ 2 mls/min IV NOW STA Stop: 07/25/22 10:58 Last Admin: 07/25/22 11:22 Dose: 2 mls/min Documented By: AM Folic Acid 1 mg/ Syringe 10 mls @ 5 mls/min IV NOW STA Stop: 07/25/22 10:55 Last Admin: 07/25/22 11:18 Dose: 5 mls/min Documented By: AM Lorazepam (Lorazepam 2 Mg/1 Ml Vial) 2 mg IV NOW STA Stop: 07/25/22 10:54 Last Admin: 07/25/22 11:16 Dose: 2 mg Documented By: AM Lorazepam (Lorazepam 2 Mg/1 Ml Vial) 2 mg IV NOW STA; Protocol Stop: 07/25/22 12:24 Last Admin: 07/25/22 12:39 Dose: 2 mg Documented By: AM Discharge Plan Visit Data Chief Complaint: Alcohol Withdrawal Stated Complaint: ALCOHOL WITHDRAWAL ED Provider: Jesus Davis Discharge Problem: Alcohol withdrawal hallucinosis Patient Disposition: Admitted As Inpatient Condition: Good Discharge Instructions Interventions: ED Discharge Assessment Last Done: 07/25/22 13:08
[2022-07-25 11:51] LABS: Alanine Aminotransferase 75 U/L (7-52); Albumin Globulin Ratio 1.6 (0.9-2); Albumin Level 4.3 gm/dl (3.4-5.0); Alkaline Phosphatase 62 U/L (34-104); Anion Gap 16 (3-11); Aspartate Aminotransferase 94 U/L (13-39); BUN Creatinine Ratio 14.9 (10-20); Bilirubin,Total 1.2 mg/dl (0.2-1.0); Blood Urea Nitrogen 13 mg/dl (6-23); Calcium 8.7 mg/dl (8.5-10.1); Carbon Dioxide 24 mmol/L (21-32); Chloride 96 mmol/L (98-107); Est GFR (African American) 87.5 ml/min; Est GFR (Non-African American) 75.5 ml/min; Globulin 2.7 gm/dl (2.5-4.0); Glucose 154 mg/dl (70-99(Fasting)); Potassium 3.7 mmol/L (3.5-5.1); Sodium 136 mmol/L (136-145)
--- NOTE | 2022-07-25 12:34 | History & Physical Report ---
Date of Service July 25, 2022 Assessment & Plan (1) Alcohol withdrawal: Plan: Symptoms including agitation, visual hallucinations and tremors. No diaphoresis, hypothermia, hypotension or tachycardia to suggest delirium tremens at this stage. She is orientated x2 and to the ER. Concerning she is going through alcohol withdrawal with a positive alcohol level however previously did well just back in May on lorazepam PRN Will utilize the same as last admission with 1-3mg PO lorazepam per AWSS. Continue thiamine supplementation - no ophthalmoplegia or gait abnormalities to suggest Wernicke's (2) Alcohol abuse: Plan: Consider discharge to inpatient rehab (3) Alcohol withdrawal hallucinosis: Plan: Concerning new symptom or visual hallucinations compared to last admission. Continue to monitor for resolution as she gets through alcohol withdrawal. (4) Transaminitis: Plan: 2/2 alcohol intake. Will (5) Anxiety: Plan: Continue desvenlafaxine, gabapentin and lorazepam as above. Plan VTE Prophylaxis - low risk Diet - regular, easy to chew Disposition - admit to med/tele Admission and Anticipated Discharge Date Admission Date: July 25, 2022 History of Present Illness Chief Complaint: Alcohol withdrawal Primary Care Provider: Latoya Valerio Brigid Perla is a 56 year old female with known alcohol use disorder who presents to the ER with concerns of alcohol withdrawal. She was recently admitted for the same from June 04 -2021 and did well during that admission and was discharged 2 days later however it was also longer since her last drink. She was seen in the ER on July 22 also with concerns for alcohol withdrawal however with a significantly elevated alcohol level at that time. She was therefore discharged with a Librium taper although she cannot remember this. I am unable to get a detailed history regarding her recent drinking history after discharge in May. She thinks she may have gone back to drinking just a few days after discharge. She does report intermittently stopping drinking for her recent endoscopy on June 30. She reports having 2 to 3 weeks of sobriety at the time but then stopped taking her Antabuse and starts drinking 3-4 bottles of wine a day. She reports coming to the emergency room today as a friend station intervention with her adult son over video chat. Therefore she took an Uber here today. She reports significant tremors but no diaphoresis, tachycardia or palpitations. She reports having visual hallucinations which started just while in the emergency room with seeing people in the room who clearly are not the. She is orientated to year, person and place. She does not remember if from her admission last time. In the ER she has a positive ethyl alcohol level 46.2 mg/dL. Given failed attempts at going through alcohol withdrawal at home with a Librium taper and the patient is currently going through alcohol withdrawal with a positive alcohol level she was referred to medicine for admission ongoing management of alcohol withdrawal. Allergies Allergy/AdvReac Type Severity Reaction Status Date / Time levothyroxine Allergy Severe facial Verified 07/22/22 17:02 swelling minocycline [From Minocin] Allergy Mild Rash Verified 07/22/22 17:02 Sulfa (Sulfonamide Allergy Unknown PT DOESN'T Verified 07/22/22 17:02 Antibiotics) REMEMBER REACTION Home Medications Medication Instructions Recorded Confirmed Type amitriptyline 50 mg tablet 50 mg PO HS 12/13/19 07/25/22 History omeprazole magnesium 20 mg 20 mg PO QAM 12/13/19 07/25/22 History tablet,delayed release (Prilosec OTC) gabapentin 100 mg capsule 100 mg PO BID 04/10/20 07/22/22 History desvenlafaxine succinate 50 mg 100 mg PO QAM 02/17/22 07/25/22 History tablet,extended release 24 hr (Pristiq) atorvastatin 20 mg tablet 20 mg PO HS 02/18/22 07/25/22 History cetirizine 10 mg tablet (Zyrtec) 10 mg PO QAM 02/18/22 07/25/22 History fluticasone propionate 50 1 spray intranasal HS 02/18/22 07/25/22 History mcg/actuation nasal spray,suspension propranolol 20 mg tablet 20 mg PO BID 03/01/22 07/25/22 History azelastine 137 mcg (0.1 %) nasal 1 spray intranasal QAM 05/15/22 07/25/22 History spray aerosol melatonin 5 mg tablet 5 mg PO HS PRN Insomnia 05/15/22 07/25/22 History folic acid 1 mg tablet 1 mg PO QAM #30 tabs 06/06/22 07/25/22 Rx thiamine HCl (vitamin B1) 100 mg 100 mg PO QAM #30 tabs 06/06/22 07/22/22 Rx tablet disulfiram 250 mg tablet 250 mg PO QAM 06/24/22 07/25/22 History lorazepam 1 mg tablet 1 mg PO QAM PRN Anxiety 06/24/22 07/25/22 History naltrexone 50 mg tablet 50 mg PO BID 06/24/22 07/25/22 History anastrozole 1 mg tablet 1 mg PO QAM 07/22/22 07/25/22 History metoprolol succinate 50 mg 50 mg PO QAM 07/22/22 07/25/22 History tablet,extended release 24 hr Past Med/Surg History Medical History Abnormal TSH "on the borderline'-monitoring it and no meds Alcoholism hx-quit drinking most recently 06/05/22. 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 Pt was extubated and didn't start breathing right away, so they reintubated her and took her to ICU; I told the doctors that I was definitely not drinking the day of my procedure either." History of sleep apnea CPap Hypothyroidism monitoring levels d/t allergy to levothyroxine Insomnia Migraine Mood disorder Palpitations "related to drinking, I had SVT's and if I don't drink, I don't have them; have been to the ER to have them checked" f/u Dr. Healy, S Post traumatic stress disorder PSVT (paroxysmal supraventricular tachycardia) with alcohol withdrawl, no problems recently - does follow cardiology [facility] (Dr. Huynh) Rosacea hx Schatzki's ring Ventricular tachycardia from alcohol withdrawl Surgical History H/O colonoscopy 05/01/2016 - perianal skin tag, normal colon H/O esophagogastroduodenoscopy 07/04/2009 - EUS exam- No choledocholithiasis, No masses appreciated in the entire pancreas. EGD exam- Normal examined duodenum. Bilious gastric fluid. Mild gastritis ? bilious etiology. Bx neg for H. pylori. Prominent fold just distal to GEJ. Bx- Squamocolumnar mucosa with mild carditis and hyperplastic changes. Negative for intestinal metaplasia and dysplasia. Medium sized hiatus hernia." On 03/10/17 15:26 Rita España wrote "07/04/2009- EUS exam- No choledocholithiasis, No masses appreciated in the entire pancreas. EGD exam- Normal examined duodenum. Bilious gastric fluid. Mild gastritis ? bilious etiology. This was biopsied to r/o H Pylori. Prominent fold just distal to GEJ. This was biopsied. Medium sized hiatus hernia." History of breast biopsy 11/30/2019 - Left Breast 02/08/2020 - Right Breast History of dilation and curettage 2003 - s/p miscarriage History of lumpectomy of left breast x1; x20 radiation tx., no chemo History of lumpectomy of right breast x2; radiation tx x42--4512 History of mandibular surgery 1985 History of surgery 05/07/2016 - Anal Tag Removal S/P laparoscopic cholecystectomy 02/23/2004 Family History Mother Breast cancer, Onset Age: 76 Currently battling metastatic breast cancer Grandmother (Paternal) , Passed age 93 of stomach cancer No problems noted. Grandfather (Maternal) , Passed age 72 of colon cancer No problems noted. Father , Passed age 67 of complications from menigioma No problems noted. Aunt Breast cancer, Onset Age: 34 Alive and well Aunt Breast cancer, Onset Age: 62 alive and well Aunt Breast cancer, Onset Age: 62 Alive and well Brother Stroke Dementia Sister No problems noted. Son No problems noted. Other Family history non-contributory Social History Smoking Status: Never smoker Second Hand Exposure: No; Hx Alcohol Use: Yes Alcohol type: wine Alcohol Intake Frequency: 4 or More x per/Week Alcohol Intake Frequency Comment: 3 bottles of wine daily for past 30 days Hx Substance Use: No Preferred Language: Belarusian Communication Ability: Effective Visual Impairment: Limited Hearing Ability: Normal Provider Relations Manager Required: No Beliefs That Will Affect Care: None marital status: Current Living Situation: Alone Current Living Situation Comment: has [employer] students/ short term workers renting rooms at her home current occupational status: 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 Feels Safe at Home: Yes Safety Concerns: Feels Safe At This Time Childhood Exposure to Second-Hand Smoke: Yes (Mom ) caffeine: Yes (daily ) during the past year weight has: remained stable Dental Care, Regularly: Yes Assistive Devices: Glasses Review of Systems Review of Systems: All systems reviewed & are unremarkable except as noted in HPI & below Chronic nasal congestion -no acute change Physical Exam Constitutional: well developed, well nourished and + acute distress (tremors) Eyes: PERRL, conjunctivae normal, anicteric sclerae ENMT: external ear and nose normal, oropharynx normal Neck: trachea midline, no thyromegaly Respiratory: normal respiratory effort, lungs clear to auscultation Cardiovascular: RRR, no murmur, no edema Gastrointestinal (Abdomen): normal bowel sounds, soft, nontender, no hepatosplenomegaly Neurologic: Motor/Sensory: + tremor (Action bilaterally) Results & Data Results & Data ([facility]) Vital Signs (Past 12 Hours) Vital Signs Temp Pulse Resp BP Pulse Ox O2 Del Method 07/25/22 11:39 97 Room Air 07/25/22 10:40 36.9 C 103 H 18 108/74 98 Room Air Laboratory Results Abnormal lab results 07/25/22 07/25/22 Range/Units 11:15 11:15 Chloride 96 L (98-107) mmol/L Anion Gap 16 H (3-11) Glucose 154 H (70-99(Fasting)) mg/dl Total Bilirubin 1.2 H (0.2-1.0) mg/dl AST 94 H (13-39) U/L ALT 75 H (7-52) U/L Ethyl Alcohol mg/dL 46.2 H (<10.0) mg/dl Medications Administered ER Medications Given: NSS 1L bolus Lorazepam 2mg IV Thiamine 100mg IV Folic acid 1mg IV Lorazepam 2mf IV ECG Indication: altered mental status Rate (beats per minute): 68 Rhythm: normal sinus Findings: + RBBB (Incomplete) Code Status & VTE Plan Code Status Full VTE Prophylaxis Plan VTE Prophylaxis will be ordered: No Reason for no VTE drug order: Treatment not indicated Reason for no VTE mechanical prophylaxis: Treatment not indicated PG Care Time/CCT Total # of Minutes Spent Total Time Spent with Patient: Total time spent is greater than 50% in coordination of care (as documented) at patient's floor/unit and/or counseling patient: Coding Level of Care Code 47576 Initial Inpt Care Lvl 3 Diagnoses Alcohol withdrawal F10.939 Alcohol abuse F10.10 Alcohol withdrawal hallucinosis F10.932 Transaminitis R74.01 Anxiety F41.9
[2022-07-25 13:30] LABS: Basophils # (auto) 0.04 K/uL (0-0.2); Basophils % (auto) 0.9 %; Eosinophils # (auto) 0.13 K/uL (0-0.50); Eosinophils % (auto) 2.9 %; Immature Granulocytes # (auto) 0.02 K/uL (0.00-0.02); Immature Granulocytes % (auto) 0.5 %; Lymphocytes # (auto) 0.87 K/uL (1.2-3.4); Lymphocytes % (auto) 19.6 %; Mean Corpuscular Hemoglobin 31.7 pg (25.0-34.0); Mean Corpuscular Hgb Conc 33.3 g/dL (32.0-36.0); Mean Corpuscular Volume 95.1 fL (80.0-100.0); Mean Platelet Volume 9.8 fL (9.4-12.3); Monocytes # (auto) 0.37 K/uL (0.24-0.82); Monocytes % (auto) 8.3 %; Neutrophils # (auto) 3.01 K/uL (1.4-6.5); Neutrophils % (auto) 67.8 %; Platelet Count 131 K/uL (130-400); RDW Coefficient of Variation 15.1 % (11.5-14.5); RDW Standard Deviation 52.9 fL (36.4-46.3); White Blood Count 4.44 K/ul (4.8-10.8)
[2022-07-25] MEDS ORDERED: ACETAMINOPHEN 325 MG TAB PO PRN (14:36)
[2022-07-25] MEDS ORDERED: Ativan PO Alcohol Withdrawal--Active Protocol PO PRN (14:36)
[2022-07-25] MEDS ORDERED: LORazepam 1 MG TAB PO PRN (14:36)
[2022-07-25] MEDS ORDERED: POLYETHYLENE (MIRALAX) 17 GM PACK PO PRN (14:36)
[2022-07-25] MEDS: LORazepam 1 MG TAB PO PRN ×5 (14:50→23:12)
[2022-07-25] MEDS ORDERED: MELATONIN 3 MG TAB PO PRN (14:55)
[2022-07-25] MEDS: PANTOprazole 40 MG TAB PO SCH (16:14)
--- NOTE | 2022-07-25 17:02 | Electrocardiogram Report ---
Test Reason : Blood Pressure : / mmHG Vent. Rate : 068 BPM Atrial Rate : 068 BPM P-R Int : 192 ms QRS Dur : 092 ms QT Int : 426 ms P-R-T Axes : 064 008 028 degrees QTc Int : 452 ms Normal sinus rhythm Incomplete right bundle branch block Abnormal ECG When compared with ECG of 04-JUN-2022 18:14, Incomplete right bundle branch block is now Present Confirmed by Mario Sarah ([id number]) on 07/25/2022 5:01:41 PM Referred By: REFERRED SELF Confirmed By:Franck Sarah
[2022-07-25] MEDS: GABAPENTIN 100 MG CAP PO SCH (20:03)
[2022-07-25] MEDS: MONTELUKAST SODIUM 10 MG TABLET PO SCH (20:03)
[2022-07-25] MEDS: FLUTICASONE PROPIONATE NA SPR 16 GM BTL NAE SCH (20:04)
[2022-07-25] MEDS ORDERED: ATORVASTATIN 20 MG TAB PO SCH (21:00)
[2022-07-26] MEDS: LORazepam 1 MG TAB PO PRN (01:21)
[2022-07-26] MEDS ORDERED: LORazepam 2 MG in SYRINGE 1.5 ML IV PRN (02:47)
[2022-07-26] MEDS ORDERED: Ativan IV Alcohol Withdrawal--Active Protocol IV PRN ×2 (02:47→08:06)
[2022-07-26] MEDS ORDERED: LORazepam 1 MG in SYRINGE 0.5 ML IV PRN ×2 (02:47→08:06)
[2022-07-26] MEDS ORDERED: LORazepam 2 MG in SYRINGE 1 ML IV PRN (02:47)
[2022-07-26] MEDS ORDERED: LORazepam 2 MG in SYRINGE 1 ML IV STA ×2 (02:48→10:39)
--- NOTE | 2022-07-26 02:51 | Communication Note ---
Date of Service: July 26, 2022 [facility] protocol. converting from PO to IV. appears to helping with symptoms.
[2022-07-26 05:46] LABS: Basophils # (auto) 0.02 K/uL (0-0.2); Basophils % (auto) 0.5 %; Eosinophils # (auto) 0.16 K/uL (0-0.50); Eosinophils % (auto) 3.9 %; Hemoglobin 12.2 g/dl (12.0-16.0); Immature Granulocytes # (auto) 0.02 K/uL (0.00-0.02); Immature Granulocytes % (auto) 0.5 %; Lymphocytes # (auto) 1.03 K/uL (1.2-3.4); Lymphocytes % (auto) 25.2 %; Monocytes # (auto) 0.44 K/uL (0.24-0.82); Monocytes % (auto) 10.8 %; Neutrophils # (auto) 2.42 K/uL (1.4-6.5); Neutrophils % (auto) 59.1 %; Platelet Count 94 K/uL (130-400); White Blood Count 4.09 K/ul (4.8-10.8)
[2022-07-26 06:04] LABS: INR 1.1 (0.9-1.1); Prothrombin Time 11.3 Seconds (9.0-12.0)
[2022-07-26 06:13] LABS: Albumin Globulin Ratio 1.6 (0.9-2); Albumin Level 3.7 gm/dl (3.4-5.0); BUN Creatinine Ratio 16.7 (10-20); Bilirubin,Total 0.9 mg/dl (0.2-1.0); Calcium 8.4 mg/dl (8.5-10.1); Creatinine Clr Calc Pharmacy 78.6 ml/min; Est GFR (Non-African American) 72.5 ml/min; Globulin 2.3 gm/dl (2.5-4.0); Magnesium 1.8 mg/dl (1.7-2.4); Phosphorus 2.3 mg/dl (2.5-4.9); Potassium 3.4 mmol/L (3.5-5.1)
[2022-07-26 06:17] LABS: Mean Corpuscular Hgb Conc 34.9 g/dL (32.0-36.0); Mean Corpuscular Volume 91.9 fL (80.0-100.0); RDW Coefficient of Variation 14.6 % (11.5-14.5); RDW Standard Deviation 49.4 fL (36.4-46.3); Red Blood Count 3.81 M/uL (3.93-5.22)
[2022-07-26] MEDS ORDERED: LORazepam 3 MG in SYRINGE 1.5 ML IV PRN (08:06)
[2022-07-26] MEDS ORDERED: chlordiazePOXIDE ALCOHOL WITHDRAWL 50MG PO STA (08:06)
[2022-07-26] MEDS: PANTOprazole 40 MG TAB PO SCH (08:49)
[2022-07-26] MEDS: FOLIC ACID 1 MG TAB PO SCH (08:49)
[2022-07-26] MEDS: GABAPENTIN 100 MG CAP PO SCH (08:49)
[2022-07-26] MEDS: chlordiazePOXIDE HCl 25 MG CAP PO SCH ×2 (08:51→13:42)
[2022-07-26] MEDS ORDERED: THIAMINE HCL 100 MG TAB PO SCH (09:00)
[2022-07-26] MEDS ORDERED: CETIRIZINE HCL 10 MG TABLET PO SCH (09:00)
[2022-07-26] MEDS ORDERED: ANASTROZOLE 1 MG TAB PO SCH (09:00)
--- NOTE | 2022-07-26 10:38 | Hospitalist Progress Note ---
Date of Service July 26, 2022 Assessment & Plan (1) Alcohol withdrawal: Plan: Symptoms including agitation, visual hallucinations and tremors. Now with worsening agitation, diaphoresis, mild hypertension and tachycardia to suggesting delirium tremens. Thiamine 100mg IV TID Transfer to ICU for ongoing care. Discussed with Dr Campbell regarding starting Precedex. (2) Delirium tremens: Plan: Increasing agitation, worsening orientation, diaphoresis, tachycardia, mild hypertension suggestive of delirium tremens (see treatment above) CT head negative for intracranial pathology (3) Alcohol abuse: Plan: Consider discharge to inpatient rehab (4) Alcohol withdrawal hallucinosis: Plan: Concerning new symptom or visual hallucinations compared to last admission. Continue to monitor for resolution as she gets through alcohol withdrawal. (5) Transaminitis: Plan: 2/2 alcohol intake. Trend periodically. (6) Anxiety: Plan: Continue desvenlafaxine, gabapentin and lorazepam as above. Plan VTE Prophylaxis - low risk Diet - NPO Disposition - Transfer to ICU for ongoing care Admission and Anticipated Discharge Date Admission Date: July 25, [address], time to year and month, self. Ongoing visual hallucinations. mild sweating, tremors and agitation appear improved since yesterday when seen this morning. Unfortunately she became more disorientated throughout the day with increased agitation, diaphoresis and now with tachycardia and increasing blood pressure concerning for delirium tremens despite 25mg lorazepam given since admission. Discussed with intesivist Dr Campbell and will transfer o the ICU for consideration of Precedex. Review of Systems Review of Systems: All systems reviewed & are unremarkable except as noted in Subjective Physical Exam Physical Exam: Exam listed is from this morning however patient deteriorated during the day with decreased orientation to person only and increased visual hallucinations Constitutional: well developed and well nourished; no acute distress Eyes: PERRL, conjunctivae normal, anicteric sclerae ENMT: external ear and nose normal, oropharynx normal Neck: trachea midline, no thyromegaly Respiratory: normal respiratory effort, lungs clear to auscultation Cardiovascular: RRR, no murmur, no edema Gastrointestinal (Abdomen): normal bowel sounds, soft, nontender, no hepatosplenomegaly Neurologic: Motor/Sensory: + tremor (Action bilaterally) Psychiatric: Orientation: alert, oriented to person, oriented to place and oriented to time (year only) Eye Contact: + poor eye contact Thought Process: + tangential thought process Hallucinations: + visual hallucinations Results & Data Results [facility] ([facility]) Vital Signs (Past 12 Hours) Vital Signs Temp Pulse Pulse Resp BP BP Pulse Ox 07/26/22 10:30 36.9 C 81 22 155/103 H 99 07/26/22 10:22 70 07/26/22 08:34 36.8 C 71 18 147/94 H 96 07/26/22 05:42 62 07/26/22 03:45 36.5 C 76 18 134/86 97 O2 Del Method 07/26/22 10:30 Room Air 07/26/22 10:22 07/26/22 08:34 Room Air 07/26/22 05:42 07/26/22 03:45 Room Air PG Care Time/CCT Total # of Minutes Spent Total Time Spent: 70 Total Time Spent with Patient: Total time spent is greater than 50% in coordination of care (as documented) at patient's floor/unit and/or counseling patient: Coding Level of Care Code 43912 Subseq Hosp Care Lvl 3 Diagnoses Alcohol withdrawal F10.939 Delirium tremens F10.931 Alcohol abuse F10.10 Alcohol withdrawal hallucinosis F10.932 Transaminitis R74.01 Anxiety F41.9
[2022-07-26] MEDS ORDERED: LORazepam 3 MG in SYRINGE 1.5 ML IV STA (12:25)
[2022-07-26] MEDS: LORazepam 2 MG in SYRINGE 1 ML IV PRN (13:42)
[2022-07-26] MEDS ORDERED: ICU PROTOCOL FOR HYPERGLYCEMIA PRN (14:50)
--- NOTE | 2022-07-26 14:55 | CT Scan Report ---
HEAD CT NONCONTRAST CT DOSE: 614.27 mGy.cm HISTORY: altered mental state, visual hallucinations TECHNIQUE: Multiaxial CT images of the head were performed without the use of intravenous contrast. A utomated exposure control was utilized for this study. A dose lowering technique was utilized adheri ng to the principles of ALARA. Comparison: Head CT 10/30/2020. Findings: The paranasal sinuses and mastoid air cells are clear. The calvarium and skull base are int act. The ventricles and sulci are within normal limits. There is no mass, hematoma, midline shift, or acute infarct. Impression: No acute intracranial abnormality. ACT 112: Negative or not required by law. Electronically signed by: Abner Frost M.D. 07/26/2022 2:53 PM
--- NOTE | 2022-07-26 14:56 | XRay Report ---
XR chest 1V portable HISTORY: altered mental state COMPARISON: Chest 05/13/2022. FINDINGS: The lungs are clear. Cardiac silhouette is normal in size. No pleural effusions. No pneumot horax. IMPRESSION: No acute process. ACT 112: Negative or not required by law. Electronically signed by: Abner Frost M.D. 07/26/2022 2:54 PM
[2022-07-26] MEDS ORDERED: STAT IV Infusion **Titration per Protocol STA (15:04)
[2022-07-26] MEDS: dexMEDEtomidine 200 MCG/50 ML BAG IV SCH ×3 (15:32→20:18)
[2022-07-26] MEDS: LACTATED RINGER'S 1,000 ML IV SCH ×2 (15:32→20:18)
[2022-07-26] MEDS: THIAMINE HCL 500 MG in SODIUM CHLORIDE 0.9% 50 ML IV SCH ×2 (17:50→20:17)
--- NOTE | 2022-07-26 19:21 | Critical Care Consultation ---
Date of Consultation July 26, 2022 Assessment & Plan (1) Admitted to intensive care unit: Reason Critically Ill: 56-year-old female admitted for alcohol withdrawal with delirium tremens requiring close monitoring with ongoing aggressive management for alcohol withdrawal. NEURO - * CAM ICU: POSITIVE * Alcohol withdrawal with delirium tremens: * Required aggressive amounts of Ativan on the floor. * Now requiring Precedex drip. * Will add scheduled Ativan in addition to her Precedex gtt. * PRN Ativan dosing per AWSS as well. * Patient w/ h/o similar admission in the past. * Consider inpatient treatment evaluation once she has shown improvement. CARDIAC/VASCULAR - * HTN: * Baseline and likely acute now in the setting of EtOH w/d. * Continue w/ benzo dosing. * Add PRN IV Rx as needed in the interim. * Monitor on telemetry. RESPIRATORY - * No h/o pulmonary disease. GI/NUTRITION - * Sips and chips for now. * Prophylaxis: Protonix RENAL/LYTES - * Hypokalemia/Hypophosphatemia: * Replace as needed. * IVF: LR @ 100 mL/hr - * [place] in place - Strict I&Os. ENDO - * No h/o DM * BSGs per unit protocol. ISS --> gtt per unit policy. * Hypothyroidism: * Not currently treated 2/2 allergy. HEME - * Stable H&H ID - * No concerns for infection at this time. LINES/IV ACCESS - * PIVs x2 * [place] DVT PROPHYLAXIS - * Will hold on chemoprophylaxis for now as she is with a degree of thrombocytopenia. Will reassess as this improves and add sq Heparin. * SCDs I have personally spent 35 minutes of critical care time in the direct management of this patient. This is a life/limb threatening event. This includes time spent evaluating patient, direct bedside care, chart review, placing orders, interpretation of diagnostic studies, discussion with consultants, patient, and family members, as well as other required patient management activities. This time is exclusive of all separately billable procedures, and teaching time and separate from and in addition to any other critical care service time. Thank you for allowing us to participate in the care of this patient. Please refer to my attending physician's documentation for any further recommendations. (2) Delirium tremens: (3) Alcohol withdrawal: (4) Alcohol withdrawal hallucinosis: (5) Alcohol abuse: (6) Transaminitis: (7) Dyslipidemia: (8) Hypothyroidism: (9) Mood disorder: (10) Anxiety: History of Present Illness Attending Physician: Alexis Delgado MD History of Present Illness Patient is a 56-year-old female with a significant past medical history of alcoholism, anxiety, mood disorder, hypothyroidism, dyslipidemia, and hypertension. She was admitted to this institution on 07/25 with chief complaint of alcohol withdrawal. She has been admitted for the same in the past. Unfortunately, the patient has relapsed after not taking her Antabuse for approximately 2 to 3 weeks. She had been reportedly drinking 3-4 bottles of wine per day. Unfortunately, despite aggressive utilization of Ativan on the floor, the patient developed worsening delirium tremens prompting need for transfer to the ICU for ongoing management. Upon my evaluation in the ICU, the patient is somnolent. She does respond to stimuli. She is currently on Precedex drip and has AWSS score for a needed Ativan dosing. She is otherwise unable to contribute to HPI. Allergies Allergy/AdvReac Type Severity Reaction Status Date / Time levothyroxine Allergy Severe facial Verified 07/22/22 17:02 swelling minocycline [From Minocin] Allergy Mild Rash Verified 07/22/22 17:02 Sulfa (Sulfonamide Allergy Unknown PT DOESN'T Verified 07/22/22 17:02 Antibiotics) REMEMBER REACTION Home Medications Medication Instructions Recorded Confirmed Type amitriptyline 50 mg tablet 50 mg PO HS 12/13/19 07/25/22 History omeprazole magnesium 20 mg 20 mg PO QAM 12/13/19 07/25/22 History tablet,delayed release (Prilosec OTC) gabapentin 100 mg capsule 100 mg PO BID 04/10/20 07/22/22 History desvenlafaxine succinate 50 mg 100 mg PO QAM 02/17/22 07/25/22 History tablet,extended release 24 hr (Pristiq) atorvastatin 20 mg tablet 20 mg PO HS 02/18/22 07/25/22 History cetirizine 10 mg tablet (Zyrtec) 10 mg PO QAM 02/18/22 07/25/22 History fluticasone propionate 50 1 spray intranasal HS 02/18/22 07/25/22 History mcg/actuation nasal spray,suspension propranolol 20 mg tablet 20 mg PO BID 03/01/22 07/25/22 History azelastine 137 mcg (0.1 %) nasal 1 spray intranasal QAM 05/15/22 07/25/22 History spray aerosol melatonin 5 mg tablet 5 mg PO HS PRN Insomnia 05/15/22 07/25/22 History folic acid 1 mg tablet 1 mg PO QAM #30 tabs 06/06/22 07/25/22 Rx thiamine HCl (vitamin B1) 100 mg 100 mg PO QAM #30 tabs 06/06/22 07/22/22 Rx tablet disulfiram 250 mg tablet 250 mg PO QAM 06/24/22 07/25/22 History lorazepam 1 mg tablet 1 mg PO QAM PRN Anxiety 06/24/22 07/25/22 History naltrexone 50 mg tablet 50 mg PO BID 06/24/22 07/25/22 History anastrozole 1 mg tablet 1 mg PO QAM 07/22/22 07/25/22 History metoprolol succinate 50 mg 50 mg PO QAM 07/22/22 07/25/22 History tablet,extended release 24 hr Patient History Medical History Abnormal TSH "on the borderline'-monitoring it and no meds Alcoholism hx-quit drinking most recently 06/05/22. 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 Pt was extubated and didn't start breathing right away, so they reintubated her and took her to ICU; I told the doctors that I was definitely not drinking the day of my procedure either." History of sleep apnea CPap Hypothyroidism monitoring levels d/t allergy to levothyroxine Insomnia Migraine Mood disorder Palpitations "related to drinking, I had SVT's and if I don't drink, I don't have them; have been to the ER to have them checked" f/u Dr. Healy, [facility] Post traumatic stress disorder PSVT (paroxysmal supraventricular tachycardia) with alcohol withdrawl, no problems recently - does follow cardiology S (Dr. Huynh) Rosacea hx Schatzki's ring Ventricular tachycardia from alcohol withdrawl Surgical History H/O colonoscopy 05/01/2016 - perianal skin tag, normal colon H/O esophagogastroduodenoscopy 07/04/2009 - EUS exam- No choledocholithiasis, No masses appreciated in the entire pancreas. EGD exam- Normal examined duodenum. Bilious gastric fluid. Mild gastritis ? bilious etiology. Bx neg for H. pylori. Prominent fold just distal to GEJ. Bx- Squamocolumnar mucosa with mild carditis and hyperplastic changes. Negative for intestinal metaplasia and dysplasia. Medium sized hiatus hernia." On 03/10/17 15:26 Rita España wrote "07/04/2009- EUS exam- No choledocholithiasis, No masses appreciated in the entire pancreas. EGD exam- Normal examined duodenum. Bilious gastric fluid. Mild gastritis ? bilious etiology. This was biopsied to r/o H Pylori. Prominent fold just distal to GEJ. This was biopsied. Medium sized hiatus hernia." History of breast biopsy 11/30/2019 - Left Breast 02/08/2020 - Right Breast History of dilation and curettage 2003 - s/p miscarriage History of lumpectomy of left breast x1; x20 radiation tx., no chemo History of lumpectomy of right breast x2; radiation tx n57--1900 History of mandibular surgery 1985 History of surgery 05/07/2016 - Anal Tag Removal S/P laparoscopic cholecystectomy 02/23/2004 Family History Mother Breast cancer, Onset Age: 76 Currently battling metastatic breast cancer Grandmother (Paternal) , Passed age 93 of stomach cancer No problems noted. Grandfather (Maternal) , Passed age 72 of colon cancer No problems noted. Father , Passed age 67 of complications from menigioma No problems noted. Aunt Breast cancer, Onset Age: 34 Alive and well Aunt Breast cancer, Onset Age: 62 alive and well Aunt Breast cancer, Onset Age: 62 Alive and well Brother Stroke Dementia Sister No problems noted. Son No problems noted. Other Family history non-contributory Social History Smoking Status: Never smoker Second Hand Exposure: No; Hx Alcohol Use: Yes Alcohol type: wine Alcohol Intake Frequency: 4 or More x per/Week Alcohol Intake Frequency Comment: 3 bottles of wine daily for past 30 days Hx Substance Use: No Preferred Language: Burkinan Communication Ability: Effective Visual Impairment: Limited Hearing Ability: Normal Gravity Prospector Required: No Beliefs That Will Affect Care: None marital status: Current Living Situation: Alone Current Living Situation Comment: has [employer] students/ short term workers renting rooms at her home current occupational status: 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 GENERAL - 56-year-old female appearing her stated age who is somnolent. Responds to stimuli. SKIN - Without rashes. HEAD - NC/AT. EYES - PERRL with EOMI bilaterally. Sclera anicteric. EARS - No deformities of external structures noted on gross examination bilaterally. NOSE - Midline and without cyanosis. No epistaxis or purulent drainage noted. MOUTH/OROPHARYNX - Without perioral cyanosis. NECK - Neck with FROM. Supple to palpation. No nuchal rigidity. LUNGS - Chest wall symmetric without accessory muscle use, intercostals retractions, or central cyanosis. Normal vesicular breath sounds CTA B/L. No wheezes, rales, or rhonchi appreciated. CARDIAC - RRR with S1/S2. No murmur, rubs, or gallops appreciated. ABDOMEN - Abdominal contour obese without pulsations or visible masses. BS normoactive all four quadrants. No tenderness, palpable masses, hepatosplenomegaly, or ascites noted. EXTREMITIES - No clubbing or peripheral cyanosis. No pretibial edema present. +3/5 radial and dorsalis pedis pulses palpated throughout. +5/5 strength noted in UE/LE bilaterally. NEUROLOGIC - Cranial nerves II through XII grossly intact. PSYCH - Confusion with delirium tremens. Results & Data Results & Data ([facility]) Vital Signs (Past 12 Hours) Vital Signs Temp Pulse Pulse Resp BP BP BP 07/26/22 16:05 93 H 25 H 07/26/22 16:05 142/99 H 07/26/22 16:00 80 16 142/99 H 07/26/22 15:30 80 13 07/26/22 15:00 87 17 07/26/22 15:00 151/93 H 07/26/22 14:57 91 H 15 07/26/22 14:50 85 17 07/26/22 14:45 85 17 07/26/22 14:44 83 19 07/26/22 14:44 161/108 H 07/26/22 14:43 86 7 L 07/26/22 14:37 93 H 07/26/22 15:00 36.6 C 07/26/22 13:00 91 H 18 157/103 H 07/26/22 12:19 36.4 C L 74 18 155/100 H 07/26/22 10:40 81 07/26/22 10:30 36.9 C 81 22 155/103 H 07/26/22 10:22 70 07/26/22 08:34 36.8 C 71 18 147/94 H Pulse Ox O2 Del Method 07/26/22 16:05 07/26/22 16:05 07/26/22 16:00 07/26/22 15:30 07/26/22 15:00 07/26/22 15:00 07/26/22 14:57 07/26/22 14:50 96 07/26/22 14:45 07/26/22 14:44 07/26/22 14:44 07/26/22 14:43 07/26/22 14:37 07/26/22 15:00 07/26/22 13:00 96 07/26/22 12:19 95 07/26/22 10:40 07/26/22 10:30 99 Room Air 07/26/22 10:22 07/26/22 08:34 96 Room Air Coding Level of Care Code Critical Care 1st 30-74 mins Diagnoses Admitted to intensive care unit Z78.9 Delirium tremens F10.931 Alcohol withdrawal F10.939 Alcohol withdrawal hallucinosis F10.932 Alcohol abuse F10.10 Transaminitis R74.01 Dyslipidemia E78.5 Hypothyroidism E03.9 Mood disorder F39 Anxiety F41.9 Time Spent (min) 35
[2022-07-26] MEDS: LORazepam 2 MG in SYRINGE 1 ML IV SCH (20:06)
[2022-07-26] MEDS: FLUTICASONE PROPIONATE NA SPR 16 GM BTL NAE SCH (20:19)
[2022-07-26] MEDS: MONTELUKAST SODIUM 10 MG TABLET PO SCH (20:19)
[2022-07-27] MEDS: dexMEDEtomidine 200 MCG/50 ML BAG IV SCH ×3 (00:07→07:32)
[2022-07-27] MEDS: LORazepam 2 MG in SYRINGE 1 ML IV SCH ×2 (01:45→07:32)
[2022-07-27] MEDS: LORazepam 2 MG in SYRINGE 1 ML IV PRN (01:46)
[2022-07-27 04:34] LABS: Basophils # (auto) 0.02 K/uL (0-0.2); Basophils % (auto) 0.5 %; Eosinophils # (auto) 0.17 K/uL (0-0.50); Hematocrit (blood only) 37.9 % (34.1-44.9); Immature Granulocytes # (auto) 0.01 K/uL (0.00-0.02); Immature Granulocytes % (auto) 0.2 %; Lymphocytes # (auto) 0.79 K/uL (1.2-3.4); Lymphocytes % (auto) 18.5 %; Mean Platelet Volume 9.6 fL (9.4-12.3); Monocytes # (auto) 0.49 K/uL (0.24-0.82); Monocytes % (auto) 11.5 %; Neutrophils # (auto) 2.79 K/uL (1.4-6.5); Neutrophils % (auto) 65.3 %; Platelet Count 84 K/uL (130-400); White Blood Count 4.27 K/ul (4.8-10.8)
[2022-07-27] MEDS: LACTATED RINGER'S 1,000 ML IV SCH ×2 (04:53→12:48)
[2022-07-27 04:56] LABS: Mean Corpuscular Hemoglobin 31.9 pg (25.0-34.0); Mean Corpuscular Hgb Conc 34.3 g/dL (32.0-36.0); Mean Corpuscular Volume 93.1 fL (80.0-100.0); RDW Coefficient of Variation 14.2 % (11.5-14.5); RDW Standard Deviation 48.9 fL (36.4-46.3); Red Blood Count 4.07 M/uL (3.93-5.22)
[2022-07-27 04:59] LABS: Albumin Level 3.7 gm/dl (3.4-5.0); BUN Creatinine Ratio 11.1 (10-20); Bilirubin Direct 0.2 mg/dl (0-0.2); Calcium 8.5 mg/dl (8.5-10.1); Creatinine Clr Calc Pharmacy 98.7 ml/min; Est GFR (Non-African American) 94.9 ml/min; Magnesium 1.9 mg/dl (1.7-2.4); Phosphorus 3.2 mg/dl (2.5-4.9); Potassium 3.9 mmol/L (3.5-5.1)
--- NOTE | 2022-07-27 09:11 | Critical Care Progress Note ---
Date of Service July 27, 2022 Assessment & Plan (1) Admitted to intensive care unit: (2) Delirium tremens: (3) Transaminitis: Plan Reason Critically Ill: 56-year-old female admitted for alcohol withdrawal with delirium tremens requiring close monitoring with ongoing aggressive management for alcohol withdrawal. 24-hour events: Patient was transferred to the ICU due to escalating CIWA scores and high Ativan requirement. She was initiated on Precedex. She is done well overnight. NEURO -alcohol withdrawal with delirium tremens: Continue Precedex and scheduled p.o. Ativan. Try and wean Precedex to off. If she continues to have issues, gabapentin and or phenobarbital might be considered. Continue high-dose thiamine and folate. CARDIAC/VASCULAR -history of hypertension. Well-controlled currently. No current issues. No signs of autonomic instability. RESPIRATORY -severe underlying sleep disordered breathing. Continue CPAP at night when sleeping. GI/NUTRITION -okay to advance diet as tolerated. RENAL/LYTES -ICU electrolyte replacement protocol. Continue IV fluids until taking adequate p.o. -discussed with nursing. Recommend discontinuation of [place] catheter. Pure wick can be used if needed. ENDO -glycemic control per protocol. History of hypothyroidism. Medication currently on hold due to questionable allergy. HEME -thrombocytopenia, likely secondary to bone marrow suppression and alcohol use. No indication for transfusion. No evidence of bleeding. Continue to follow clinically. ID -no current issues. Continue to follow LINES/IV ACCESS - * PIVs x2 * [place] DVT PROPHYLAXIS - * Will hold on chemoprophylaxis for now as she is with a degree of thrombocytopenia. Will reassess as this improves and add sq Heparin. * SCDs Case was discussed with bedside critical care nurse. Admission and Anticipated Discharge Date Admission Date: July 25, 2022 Subjective Patient seen and examined. EMR reviewed. Discussed with NOHELIA critical care from overnight as well as with bedside nurse. Patient is somewhat sedated this morning. She continues to experience visual hallucinations and tremulousness. She is on Precedex which has been weaned down. She is not had any seizure activity. [place] catheter was placed overnight. Review of Systems Review of Systems: Unobtainable due to reduced consciousness Physical Exam Constitutional: WD/WN, vitals as above Neck: trachea midline, no thyromegaly Respiratory: normal respiratory effort, lungs clear to auscultation Cardiovascular: RRR, no murmur, no edema Gastrointestinal (Abdomen): normal bowel sounds, soft, nontender, no hepatosplenomegaly Musculoskeletal: Extremities: extremities normal to inspection Skin: no rashes, warm and dry Neurologic: Tremors in bilateral upper extremities Lymphatic: no cervical lymphadenopathy Results & Data Results & Data ([facility]) Vital Signs (Past 12 Hours) Vital Signs Temp Pulse Resp BP Pulse Ox O2 Flow Rate 07/27/22 07:00 69 07/27/22 07:00 36.4 C L 69 17 98 07/27/22 07:00 109/78 07/27/22 06:00 36.2 C L 63 19 97 07/27/22 06:00 119/87 07/27/22 05:30 36.2 C L 69 20 97 07/27/22 05:00 36.2 C L 68 20 98 07/27/22 05:00 110/84 07/27/22 04:30 36.1 C L 89 16 98 07/27/22 04:01 136/106 H 07/27/22 04:01 36.1 C L 69 18 95 07/27/22 04:00 36.1 C L 71 18 96 07/27/22 03:30 36.0 C L 68 19 93 07/27/22 03:01 112/91 07/27/22 03:01 36.0 C L 61 19 80 L 07/27/22 03:00 35.9 C L 60 18 93 07/27/22 02:30 35.9 C L 67 24 98 07/27/22 02:00 35.9 C L 71 21 83 L 07/27/22 01:30 35.5 C L 73 15 100 07/27/22 01:00 35.7 C L 80 18 97 07/27/22 01:00 163/103 H 07/27/22 00:30 35.7 C L 56 L 17 95 07/27/22 00:01 35.7 C L 53 L 17 97 07/27/22 00:01 173/120 H 07/27/22 00:00 35.7 C L 54 L 16 98 07/26/22 23:30 35.6 C L 80 19 82 L 07/26/22 23:01 128/87 07/26/22 23:01 35.7 C L 57 L 16 94 09/03/22 23:00 35.7 C L 57 L 16 93 07/26/22 22:30 35.6 C L 58 L 17 92 07/26/22 23:23 83 24 96 4 07/26/22 22:00 35.7 C L 58 L 17 93 07/26/22 22:00 106/86 07/26/22 21:30 35.7 C L 60 17 92 Critical Care Results & Data Vital Signs (Past 12 Hours) Vital Signs Temp Pulse Resp BP Pulse Ox O2 Flow Rate 07/27/22 07:00 69 07/27/22 07:00 36.4 C L 69 17 98 07/27/22 07:00 109/78 07/27/22 06:00 36.2 C L 63 19 97 07/27/22 06:00 119/87 07/27/22 05:30 36.2 C L 69 20 97 07/27/22 05:00 36.2 C L 68 20 98 07/27/22 05:00 110/84 07/27/22 04:30 36.1 C L 89 16 98 07/27/22 04:01 136/106 H 07/27/22 04:01 36.1 C L 69 18 95 07/27/22 04:00 36.1 C L 71 18 96 07/27/22 03:30 36.0 C L 68 19 93 07/27/22 03:01 112/91 07/27/22 03:01 36.0 C L 61 19 80 L 07/27/22 03:00 35.9 C L 60 18 93 07/27/22 02:30 35.9 C L 67 24 98 07/27/22 02:00 35.9 C L 71 21 83 L 07/27/22 01:30 35.5 C L 73 15 100 07/27/22 01:00 35.7 C L 80 18 97 07/27/22 01:00 163/103 H 07/27/22 00:30 35.7 C L 56 L 17 95 07/27/22 00:01 35.7 C L 53 L 17 97 07/27/22 00:01 173/120 H 07/27/22 00:00 35.7 C L 54 L 16 98 07/26/22 23:30 35.6 C L 80 19 82 L 07/26/22 23:01 128/87 07/26/22 23:01 35.7 C L 57 L 16 94 07/26/22 23:00 35.7 C L 57 L 16 93 07/26/22 22:30 35.6 C L 58 L 17 92 07/26/22 23:23 83 24 96 4 07/26/22 22:00 35.7 C L 58 L 17 93 07/26/22 22:00 106/86 07/26/22 21:30 35.7 C L 60 17 92 Lab & Micro Results (Past 24 Hours) RBC 4.07 M/uL (3.93-5.22) 07/27/22 WBC 4.27 K/ul (4.8-10.8) L 07/27/22 Hgb 13.0 g/dl (12.0-16.0) 07/27/22 Hct 37.9 % (34.1-44.9) 07/27/22 MCV 93.1 fL (80.0-100.0) 07/27/22 MCH 31.9 pg (25.0-34.0) 07/27/22 MCHC 34.3 g/dL (32.0-36.0) 07/27/22 RDW Standard Deviation 48.9 fL (36.4-46.3) H 07/27/22 RDW Coefficient of Variation 14.2 % (11.5-14.5) 07/27/22 Plt Count 84 K/uL (130-400) L 07/27/22 MPV 9.6 fL (9.4-12.3) 07/27/22 Neutrophils (%) (Auto) 65.3 % 07/27/22 Lymphocytes (%) (Auto) 18.5 % 07/27/22 Monocytes # (Auto) 0.49 K/uL (0.24-0.82) 07/27/22 Eosinophils # (Auto) 0.17 K/uL (0-0.50) 07/27/22 Immature Granulocyte % (Auto) 0.2 % 07/27/22 Neutrophils # (Auto) 2.79 K/uL (1.4-6.5) 07/27/22 Lymphocytes # (Auto) 0.79 K/uL (1.2-3.4) L 07/27/22 Monocytes # (Auto) 0.49 K/uL (0.24-0.82) 07/27/22 Eosinophils # (Auto) 0.17 K/uL (0-0.50) 07/27/22 Basophils # (Auto) 0.02 K/uL (0-0.2) 07/27/22 Immature Granulocyte # (Auto) 0.01 K/uL (0.00-0.02) 2 Na 139 mmol/L (136-145) 07/27/22 K 3.9 mmol/L (3.5-5.1) 07/27/22 Cl 104 mmol/L (98-107) 07/27/22 CO2 26 mmol/L (21-32) 07/27/22 Anion Gap 9 (3-11) 07/27/22 BUN 8 mg/dl (6-23) 07/27/22 Creatinine 0.72 mg/dl (0.6-1.2) 07/27/22 Estimated GFR ( Amer) 110.0 ml/min 07/27/22 Estimated GFR (Non-Af Amer) 94.9 ml/min 07/27/22 BUN/Creatinine Ratio 11.1 (10-20) 07/27/22 Glu 117 mg/dl (70-99(Fasting)) H 07/27/22 Ca 8.5 mg/dl (8.5-10.1) 07/27/22 Phosphorus Level 3.2 mg/dl (2.5-4.9) 07/27/22 Total Bilirubin 1.0 mg/dl (0.2-1.0) 07/27/22 Direct Bilirubin 0.2 mg/dl (0-0.2) 07/27/22 AST 48 U/L (13-39) H 07/27/22 ALT 46 U/L (7-52) 07/27/22 Alkaline Phosphatase 49 U/L (34-104) 07/27/22 TP 6.0 gm/dl (6.0-8.3) 07/27/22 Albumin 3.7 gm/dl (3.4-5.0) 07/27/22 Mg 1.9 mg/dl (1.7-2.4) 07/27/22 04:23 Calcium Level 8.5 mg/dl (8.5-10.1) 07/27/22 04:23 Diagnostic Findings (Past 24 Hours) Chest X-Ray 07/26/22 14:00 XR chest 1V portable HISTORY: altered mental state COMPARISON: Chest 05/13/2022. FINDINGS: The lungs are clear. Cardiac silhouette is normal in size. No pleural effusions. No pneumothorax. IMPRESSION: No acute process. ACT 112: Negative or not required by law. Electronically signed by: Abner Frost M.D. 07/26/2022 2:[address] 07/26/22 14:[address] DOSE: 614.27 mGy.cm HISTORY: altered mental state, visual hallucinations TECHNIQUE: Multiaxial CT images of the head were performed without the use of intravenous contrast. Automated exposure control was utilized for this study. A dose lowering technique was utilized adhering to the principles of ALARA. Comparison: Head CT 10/30/2020. Findings: The paranasal sinuses and mastoid air cells are clear. The calvarium and skull base are intact. The ventricles and sulci are within normal limits. There is no mass, hematoma, midline shift, or acute infarct. Impression: No acute intracranial abnormality. ACT 112: Negative or not required by law. Electronically signed by: Abner Frost M.D. 07/26/2022 2:53 PM I & O Totals 24 Hours 07/26/22 07/27/22 07/28/22 06:59 06:59 06:59 Intake Total 1280 / 1280 2517.231 / 2517.231 Output Total 2550 / 2550 Balance 1280 / 1280 -32.769 / -32.769 Cumulative 07/25/22 10:31 thru 07/27/22 06:58 Intake Total 3797.231 Output Total 2550 Balance 1247.231 RT Ventilator Mngmt (Last Documented) Ventilator Ordered Settings Respiratory Rate 17 07/27/22 07:00 Ventilator - PT Measurements Respiratory Rate 17 Coding Level of Care Code 37280 Subseq Hosp Care Lvl 3 Diagnoses Admitted to intensive care unit Z78.9 Delirium tremens F10.931 Transaminitis R74.01
[2022-07-27] MEDS: THIAMINE HCL 100 MG in SODIUM CHLORIDE 0.9% 50 ML IV SCH ×3 (09:32→20:07)
[2022-07-27] MEDS: FOLIC ACID 1 MG TAB PO SCH (09:32)
[2022-07-27] MEDS: LORazepam 1 MG TAB PO SCH ×2 (09:37→17:55)
[2022-07-27] MEDS: PANTOprazole 40 MG in SYRINGE 0 ML IV SCH (12:47)
--- NOTE | 2022-07-27 14:09 | Hospitalist Progress Note ---
Date of Service July 27, 2022 Assessment & Plan (1) Alcohol withdrawal: Plan: Symptoms including agitation, visual hallucinations and tremors. Now with worsening agitation, diaphoresis, mild hypertension and tachycardia to suggesting delirium tremens. Thiamine 100mg IV TID Precedex off this morning. On scheduled lorazepam per ICU team. (2) Delirium tremens: Plan: Increasing agitation, worsening orientation, diaphoresis, tachycardia, mild hypertension suggestive of delirium tremens (see treatment above). Now improving. CT head negative for intracranial pathology (3) Alcohol abuse: Plan: Consider discharge to inpatient rehab - pt request to talk to supervisor case loading. (4) Alcohol withdrawal hallucinosis: Plan: Concerning new symptom or visual hallucinations compared to last admission. Continue to monitor for resolution as she gets through alcohol withdrawal. (5) Transaminitis: Plan: 2/2 alcohol intake. Trend periodically - improving. (6) Anxiety: Plan: Continue desvenlafaxine, gabapentin and lorazepam as above. Plan VTE Prophylaxis - low risk Diet - per ICU team Disposition - Remain in ICU team - > consider step down if remains off Precedex tomorrow. Admission and Anticipated Discharge Date Admission Date: July 25, 2022 Subjective Patient much improved since yesterday. Orientated to year, place and person. Diaphoresis improved. Mild b/l action tremor. Still with hypertension and tachycardia but also off her usual metoprolol. Review of Systems Review of Systems: All systems reviewed & are unremarkable except as noted in Subjective Physical Exam Constitutional: well developed and well nourished; no acute distress ENMT: external ear and nose normal, oropharynx normal Neck: trachea midline, no thyromegaly Respiratory: normal respiratory effort, lungs clear to auscultation Cardiovascular: RRR, no murmur, no edema Gastrointestinal (Abdomen): normal bowel sounds, soft, nontender, no hepatosplenomegaly Neurologic: Motor/Sensory: + tremor (markedly improved) Psychiatric: Orientation: alert, oriented to person, oriented to place and oriented to time (year only) Eye Contact: + fair eye contact Thought Process: thought process not tangential Hallucinations: no visual hallucinations Results & Data Results & Data ([facility]) Vital Signs (Past 12 Hours) Vital Signs Temp Pulse Resp BP Pulse Ox O2 Del Method O2 Flow Rate 07/27/22 13:00 36.6 C 07/27/22 13:30 153/106 H 07/27/22 13:30 94 H 21 100 07/27/22 13:00 112 H 19 07/27/22 12:00 106 H 20 07/27/22 11:01 86 20 07/27/22 11:01 146/114 H 07/27/22 11:00 90 22 07/27/22 10:01 140/98 07/27/22 10:01 81 17 07/27/22 10:00 70 17 07/27/22 09:00 36.1 C L 75 16 100 07/27/22 09:00 143/108 H 07/27/22 08:56 138/103 H 07/27/22 08:56 36.1 C L 79 18 100 07/27/22 08:00 36.0 C L 70 16 100 07/27/22 09:43 Nasal Cannula 2 07/27/22 08:00 36.4 C L 07/27/22 09:41 69 17 109/78 98 07/27/22 07:00 69 07/27/22 07:00 36.4 C L 69 17 98 07/27/22 07:00 109/78 07/27/22 06:00 36.2 C L 63 19 97 07/27/22 06:00 119/87 07/27/22 05:30 36.2 C L 69 20 97 07/27/22 05:00 36.2 C L 68 20 98 07/27/22 05:00 110/84 07/27/22 04:30 36.1 C L 89 16 98 07/27/22 04:01 136/106 H 07/27/22 04:01 36.1 C L 69 18 95 07/27/22 04:00 36.1 C L 71 18 96 07/27/22 03:30 36.0 C L 68 19 93 07/27/22 03:01 112/91 07/27/22 03:01 36.0 C L 61 19 80 L 07/27/22 03:00 35.9 C L 60 18 93 07/27/22 02:30 35.9 C L 67 24 98 PG Care Time/CCT Total # of Minutes Spent Total Time Spent with Patient: Total time spent is greater than 50% in coordination of care (as documented) at patient's floor/unit and/or counseling patient: Coding Level of Care Code 90445 Subseq Hosp Care Lvl 2 Diagnoses Alcohol withdrawal F10.939 Delirium tremens F10.931 Alcohol abuse F10.10 Alcohol withdrawal hallucinosis F10.932 Transaminitis R74.01 Anxiety F41.9
[2022-07-27] MEDS: LORazepam 2 MG in SYRINGE 0.25 ML IV PRN ×2 (14:30→21:29)
[2022-07-27] MEDS: cloNIDine HCL 0.1 MG TAB PO SCH ×2 (14:30→20:07)
[2022-07-27] MEDS: ICU ELECTROLYTE REPLACEMENT PROTOCOL SCH (20:01)
[2022-07-27] MEDS: MONTELUKAST SODIUM 10 MG TABLET PO SCH (20:07)
[2022-07-27] MEDS: FLUTICASONE PROPIONATE NA SPR 16 GM BTL NAE SCH (20:17)
[2022-07-28] MEDS: LORazepam 1 MG TAB PO SCH ×2 (04:33→09:58)
[2022-07-28] MEDS: dexMEDEtomidine 200 MCG/50 ML BAG IV SCH ×2 (04:33→09:58)
[2022-07-28 06:45] LABS: BUN Creatinine Ratio 11.4 (10-20); Calcium 8.8 mg/dl (8.5-10.1); Creatinine Clr Calc Pharmacy 81.5 ml/min; Est GFR (African American) 86.3 ml/min; Est GFR (Non-African American) 74.5 ml/min; Magnesium 1.8 mg/dl (1.7-2.4); Phosphorus 3.7 mg/dl (2.5-4.9); Potassium 3.4 mmol/L (3.5-5.1)
--- NOTE | 2022-07-28 07:03 | Critical Care Progress Note ---
Date of Service July 28, 2022 Assessment & Plan (1) Admitted to intensive care unit: (2) Delirium tremens: (3) Transaminitis: Plan Reason Critically Ill: 56-year-old female admitted for alcohol withdrawal with delirium tremens requiring close monitoring with ongoing aggressive management for alcohol withdrawal. NEURO -alcohol withdrawal with delirium tremens: Precedex successfully weaned off, can transition Ativan 2 mg PO q8h to PRN, withdrawal symptoms improving. Continue high dose-thiamine and folate. Case management coordinating referral to inpatient rehab. CARDIAC/VASCULAR -history of hypertension. Well-controlled currently. No current issues. No signs of autonomic instability at this time. RESPIRATORY -severe underlying sleep disordered breathing. Continue CPAP at night when sleeping. GI/NUTRITION - tolerating regular diet well without issues RENAL/LYTES -ICU electrolyte replacement protocol. K 3.4 today. No longer on IVF -Voiding spontaneously without issues. ENDO -glycemic control per protocol. History of hypothyroidism. Medication currently on hold due to questionable allergy. BSGs acceptable in 100s. HEME -thrombocytopenia with Plts 84 on 07/27, likely secondary to bone marrow suppression and alcohol use. No indication for transfusion. No evidence of bleeding. Continue to follow clinically- initiate DVT prophylaxis once Plts improve ID -no current issues. Continue to follow LINES/IV ACCESS - * PIVs x2 * [place] discontinued DVT PROPHYLAXIS - * Will hold on chemoprophylaxis for now as she is with a degree of thrombocytopenia. Will reassess as this improves and add sq Heparin. * SCDs Pt stable for downgrade from ICU. Admission and Anticipated Discharge Date Admission Date: July 25, 2022 Supervising Physician Co-Signing Physician Notes Dr. Toussaint was resident physician during care of patient. I separately evaluated patient for levy portions of the history and the exam. I was present during the critical portion of medical decision making, and I discussed the case with the resident. I generally agree with the findings and plan. Improving alcohol withdraw symptoms. Stable for downgrade out of ICU. Subjective No acute events overnight. Last received Ativan 2 mg IV at 9:30 PM for tremors. Weaned off Precedex. Pt reports feeling better this morning. Did experience some tremors of hands bilaterally upon awakening from sleep for evaluation but promptly resolved during evaluation as pt calmed down. She denies any headache, palpitations, chest pain, abdominal pain, nausea. Reports no issues with oral intake or voidi ng, denies any craving for alcohol at this time. States she would like to be discharged to inpatient rehab and case management is working on this. Review of Systems Review of Systems: Per subjective Physical Exam Constitutional: WD/WN, vitals as above Neck: trachea midline, no thyromegaly Respiratory: normal respiratory effort, lungs clear to auscultation Cardiovascular: RRR, no murmur, no edema Gastrointestinal (Abdomen): normal bowel sounds, soft, nontender, no hepatosplenomegaly Musculoskeletal: Extremities: extremities normal to inspection Skin: no rashes, warm and dry Neurologic: Mild tremors in bilateral upper extremities R > L Lymphatic: no cervical lymphadenopathy Results & Data Results & Data ([facility]) Vital Signs (Past 12 Hours) Vital Signs Pulse Resp Pulse Ox FiO2 07/27/22 22:13 114 H 22 100 21 Resident Activity Tracking Resident Involvement: Resident Care Provided Care Provided: Adult Hospital Medicine
[2022-07-28] MEDS: THIAMINE HCL 100 MG in SODIUM CHLORIDE 0.9% 50 ML IV SCH ×3 (09:31→21:04)
[2022-07-28] MEDS: cloNIDine HCL 0.1 MG TAB PO SCH ×2 (09:31→21:04)
[2022-07-28] MEDS: FOLIC ACID 1 MG TAB PO SCH (09:31)
--- NOTE | 2022-07-28 09:32 | Billing Data ---
Date of Service July 28, 2022 Coding Level of Care Code 42304 Subseq Hosp Care Lvl 3
[2022-07-28] MEDS: PANTOprazole 40 MG in SYRINGE 0 ML IV SCH (10:00)
[2022-07-28] MEDS: ICU ELECTROLYTE REPLACEMENT PROTOCOL SCH (10:34)
--- NOTE | 2022-07-28 11:19 | Hospitalist Progress Note ---
Date of Service July 28, 2022 Assessment & Plan (1) Alcohol withdrawal: Plan: Symptoms including agitation, visual hallucinations and tremors. Now with worsening agitation, diaphoresis, mild hypertension and tachycardia to suggesting delirium tremens. Thiamine 100mg IV TID Switch to Librium 10mg PO BID to wean off benzodiazepines with 1mg lorazepam PO PRN (2) Delirium tremens: Plan: Increasing agitation, worsening orientation, diaphoresis, tachycardia, mild hypertension suggestive of delirium tremens (see treatment above). Now improving. CT head negative for intracranial pathology (3) Alcohol abuse: Plan: Consider discharge to inpatient rehab - pt request to talk to disease case manager rn. (4) Alcohol withdrawal hallucinosis: Plan: Now resolved. Concerning new symptom or visual hallucinations compared to last admission. (5) Transaminitis: Plan: 2/2 alcohol intake. Trend periodically - improving. (6) Anxiety: Plan: Continue desvenlafaxine, gabapentin, amitriptyline and lorazepam as above. Plan VTE Prophylaxis - low risk Diet - regular, easy to chew Disposition - stable for trasfer to med/surg Admission and Anticipated Discharge Date Admission Date: July 25, 2022 Subjective Reports feeling improved today. Still orientated to year only. No longer agitated of having tremors. Eating and drinking well. No abdominal pain, nausea or vomiting. Review of Systems Review of Systems: All systems reviewed & are unremarkable except as noted in Subjective Physical Exam Constitutional: well developed and well nourished; no acute distress Respiratory: normal respiratory effort, lungs clear to auscultation Cardiovascular: RRR, no murmur, no edema Neurologic: Motor/Sensory: no tremor Psychiatric: Orientation: alert, oriented to person, oriented to place and oriented to time (year only) Eye Contact: good eye contact Thought Process: linear/logical thought process; thought process not tangential Hallucinations: no visual hallucinations Results & Data Results & Data ([facility]) Vital Signs (Past 12 Hours) Vital Signs Temp Pulse Resp BP Pulse Ox O2 Del Method 07/28/22 09:00 93 H 22 123/90 98 07/28/22 08:01 94 H 17 131/97 96 07/28/22 07:00 79 14 101/63 96 Room Air 07/28/22 07:00 77 07/28/22 09:00 36.5 C PG Care Time/CCT Total # of Minutes Spent Total Time Spent with Patient: Total time spent is greater than 50% in coordination of care (as documented) at patient's floor/unit and/or counseling patient: Coding Level of Care Code 48101 Subseq Hosp Care Lvl 2 Diagnoses Alcohol withdrawal F10.939 Delirium tremens F10.931 Alcohol abuse F10.10 Alcohol withdrawal hallucinosis F10.932 Transaminitis R74.01 Anxiety F41.9
[2022-07-28] MEDS ORDERED: LORazepam 1 MG TAB PO PRN (11:21)
[2022-07-28] MEDS: POTASSIUM CHLORIDE CRTAB 20 MEQ TABCR PO SCH ×2 (11:52→14:14)
[2022-07-28] MEDS: MAGNESIUM OXIDE 400 MG TAB PO SCH ×2 (11:52→14:14)
[2022-07-28] MEDS ORDERED: ATORVASTATIN 20 MG TAB PO SCH (21:00)
[2022-07-28] MEDS ORDERED: AMITRIPTYLINE HCL 50 MG TAB PO SCH (21:00)
[2022-07-28] MEDS: MONTELUKAST SODIUM 10 MG TABLET PO SCH (21:04)
[2022-07-28] MEDS: FLUTICASONE PROPIONATE NA SPR 16 GM BTL NAE SCH (21:42)
[2022-07-29] MEDS ORDERED: LORazepam 1 MG TAB PO PRN (00:18)
[2022-07-29] MEDS ORDERED: MELATONIN 3 MG TAB PO PRN (02:05)
[2022-07-29] MEDS ORDERED: METOPROLOL SUCC 50MG EXT REL TAB PO SCH (09:00)
[2022-07-29] MEDS ORDERED: PANTOprazole 40 MG TAB PO SCH (09:00)
[2022-07-29] MEDS ORDERED: ANASTROZOLE 1 MG TAB PO SCH (09:00)
[2022-07-29] MEDS: THIAMINE HCL 100 MG in SODIUM CHLORIDE 0.9% 50 ML IV SCH (09:39)
[2022-07-29] MEDS: FOLIC ACID 1 MG TAB PO SCH (09:41)
[2022-07-29 10:39] LABS: BUN Creatinine Ratio 22.2 (10-20); Calcium 9.6 mg/dl (8.5-10.1); Creatinine Clr Calc Pharmacy 88.6 ml/min; Est GFR (African American) 95.4 ml/min; Est GFR (Non-African American) 82.3 ml/min; Potassium 3.6 mmol/L (3.5-5.1)
--- NOTE | 2022-07-29 11:26 | Hospitalist Progress Note ---
Date of Service July 29, 2022 Assessment & Plan (1) Alcohol withdrawal: Plan: Symptoms including agitation, visual hallucinations and tremors. Now with worsening agitation, diaphoresis, mild hypertension and tachycardia to suggesting delirium tremens. Switch thiamine to 100mg PO Can discontinue further Librium and just use lorazepam PRN (2) Delirium tremens: Plan: Resolved. CT head negative for intracranial pathology (3) Alcohol abuse: Plan: Planning to discharge to inpatient rehab. [facility] (4) Alcohol withdrawal hallucinosis: Plan: Now resolved. (5) Transaminitis: Plan: 2/2 alcohol intake. Trend periodically - improving. (6) Anxiety: Plan: Continue desvenlafaxine (can switch to effexor if patient cannot have someone bring this in), gabapentin, amitriptyline and lorazepam as above. Plan VTE Prophylaxis - low risk Diet - regular, easy to chew Disposition - patient is medically stable for pending inpatient alcohol rehab placement Admission and Anticipated Discharge Date Admission Date: July 25, 2022 Subjective Patient feels good. No tremors or agitation. No hallucinations. Review of Systems Review of Systems: All systems reviewed & are unremarkable except as noted in Subjective Physical Exam Constitutional: WD/WN, vitals as above Respiratory: normal respiratory effort, lungs clear to auscultation Cardiovascular: RRR, no murmur, no edema Gastrointestinal (Abdomen): normal bowel sounds, soft, nontender, no hepatosplenomegaly Neurologic: moves all extremities and awake; not confused Motor/Sensory: no tremor Psychiatric: A+Ox3, euthymic affect Results & Data Results & Data ([facility]) Vital Signs (Past 12 Hours) Vital Signs Temp Pulse Resp BP Pulse Ox O2 Del Method 07/29/22 06:42 36.5 C 102 H 20 117/81 99 Room Air 07/29/22 03:02 36.5 C 103 H 22 129/91 99 Room Air 07/29/22 01:10 36.4 C L 103 H 18 115/77 97 Room Air 07/29/22 00:04 37.5 C 114 H 20 151/109 H 100 Room Air PG Care Time/CCT Total # of Minutes Spent Total Time Spent with Patient: Total time spent is greater than 50% in coordination of care (as documented) at patient's floor/unit and/or counseling patient: Coding Level of Care Code 88307 Subseq Hosp Care Lvl 1 Diagnoses Alcohol withdrawal F10.939 Delirium tremens F10.931 Alcohol abuse F10.10 Alcohol withdrawal hallucinosis F10.932 Transaminitis R74.01 Anxiety F41.9
[2022-07-29 11:58] VITALS: PULSE 113; TEMP 98.6; O2SAT 100
[2022-07-29] MEDS ORDERED: VENLAFAXINE HCL XR 75 MG CAPXR PO ONE (12:45)
[2022-07-29 17:18] VITALS: BP 155/103
[2022-07-30] MEDS ORDERED: VENLAFAXINE HCL XR 150 MG CAPXR PO SCH (09:00)
[2022-07-30] MEDS ORDERED: THIAMINE HCL 100 MG TAB PO SCH (09:00)
--- NOTE | 2022-08-11 08:28 | Discharge Summary ---
Date of Service July 29, 2022 Admission HPI Per Admitting Provider Brigid Perla is a 56 year old female with known alcohol use disorder who presents to the ER with concerns of alcohol withdrawal. She was recently admitted for the same from June 04 -2021 and did well during that admission and was discharged 2 days later however it was also longer since her last drink. She was seen in the ER on July 22 also with concerns for alcohol withdrawal however with a significantly elevated alcohol level at that time. She was therefore discharged with a Librium taper although she cannot remember this. I am unable to get a detailed history regarding her recent drinking history after discharge in May. She thinks she may have gone back to drinking just a few days after discharge. She does report intermittently stopping drinking for her recent endoscopy on June 30. She reports having 2 to 3 weeks of sobriety at the time but then stopped taking her Antabuse and starts drinking 3-4 bottles of wine a day. She reports coming to the emergency room today as a friend station [facility] with her adult son over video chat. Therefore she took an Uber here today. She reports significant tremors but no diaphoresis, tachycardia or palpitations. She reports having visual hallucinations which started just while in the emergency room with seeing people in the room who clearly are not the. She is orientated to year, person and place. She does not remember if from her admission last time. In the ER she has a positive ethyl alcohol level 46.2 mg/dL. Given failed attempts at going through alcohol withdrawal at home with a Librium taper and the patient is currently going through alcohol withdrawal with a positive alcohol level she was referred to medicine for admission ongoing management of alcohol withdrawal. Principal Diagnosis Delirium tremens Alcohol withdrawal Discharge Exam Constitutional WD/WN, vitals as above Eyes + anicteric sclerae ENMT external ear and nose normal, oropharynx normal Neck trachea midline, no thyromegaly Respiratory normal respiratory effort, lungs clear to auscultation Cardiovascular RRR, no murmur, no edema Gastrointestinal (Abdomen) normal bowel sounds, soft, nontender, no hepatosplenomegaly Musculoskeletal Extremities: extremities normal to inspection; no cyanosis and no clubbing Skin no rashes, warm and dry Neurologic moves all extremities and awake; no focal motor deficits Psychiatric A+Ox3, euthymic affect Discharge Data Allergies Allergy/AdvReac Type Severity Reaction Status Date / Time levothyroxine Allergy Severe facial Verified 07/22/22 17:02 swelling minocycline [From Minocin] Allergy Mild Rash Verified 07/22/22 17:02 Sulfa (Sulfonamide Allergy Unknown PT DOESN'T Verified 07/22/22 17:02 Antibiotics) REMEMBER REACTION Consultations 07/25/22 12:28 ED Decision to Admit Stat 07/26/22 17:38 Consult Station Cashier Routine Ordered Studies 07/26/22 14:11 CT head/brain wo con Stat Impression: No acute intracranial abnormality. Hospital Course (1) Alcohol withdrawal: Brigid Perla is a 56 year old female admitted to [facility] from July 25 - 2021 due to agitation, hallucinations and tremors. She was diagnosed with alcohol withdrawal hallucinosis and developed alcohol withdrawal delirium tremens requiring ICU admission and Precedex drip for 24 hours. She has now been weaned off benzodiazepines and is being discharged home with the plan on going to [facility] alcohol rehabilitation tomorrow. She was advised not to drive tonight due to Librium taken this morning. She is having no alcohol withdrawal symptoms on discharge. She was recommended to continue on thiamine and folic acid supplementation. Do not recommend taking both metoprolol and propranolol as these are similar medications therefore propranolol has been discontinued. (2) Delirium tremens: (3) Alcohol abuse: (4) Alcohol withdrawal hallucinosis: (5) Transaminitis: (6) Anxiety: Total Time Total Time Spent Total Time Spent (In Minutes): 70 Discharge Plan Discharge Items Patient Disposition: Home - Self-Care Reason For Visit: ALCOHOL WITHDRAWAL Discharge Diagnosis: Alcohol withdrawal delirium tremens Alcohol withdrawal hallucinosis Condition on Discharge: Good Activity: Resume your previous activity Non-emergency contact: Primary Care Provider Call non-emergency contact if: you have any medication questions and your symptoms worsen Follow-up/Referrals: Latoya Valerio [Primary Care Provider] - Diet: Regular Addtl Attending Provider Instructions: You were admitted to [facility] from July 25 - 2021 due to agitation, hallucinations and tremors. You were diagnosed with alcohol w ithdrawal hallucinosis and developed alcohol withdrawal delirium tremens requiring ICU admission and Precedex drip for 24 hours. You have now been weaned off benzodiazepines. You are being discharged home with the plan on going to [facility] alcohol rehabilitation tomorrow. You should not drive tonight due to Librium taken this morning. Please continue on thiamine and folic acid supplementation. Do not recommend taking both metoprolol and propranolol as these are similar medications therefore propranolol has been discontinued. Pending Studies at Discharge: No Stand-Alone Forms: My [facility], Smoking Cessation Medications and DC Order Prescriptions: Continued azelastine 137 mcg (0.1 %) aerosol,spray 1 spray intranasal QAM Rx Instructions: administer into each nostril melatonin 5 mg tablet 5 mg PO HS PRN (Reason: Insomnia) amitriptyline 50 mg tablet 50 mg PO HS omeprazole magnesium [Prilosec OTC] 20 mg Tablet,Delayed Release (Dr/Ec) 20 mg PO QAM gabapentin 100 mg capsule 100 mg PO BID Label Comments: pt. unknown if taking. feels that she is to be taking 200mg BID rather than listed dose. disulfiram 250 mg tablet 250 mg PO QAM naltrexone 50 mg Tablet 50 mg PO BID Label Comments: patient reports that it does not help avoid ETOH cravings. lorazepam 1 mg Tablet 1 mg PO QAM PRN (Reason: Anxiety) desvenlafaxine succinate [Pristiq] 50 mg tablet extended release 24 hr 100 mg PO QAM atorvastatin 20 mg Tablet 20 mg PO HS cetirizine [Zyrtec] 10 mg Tablet 10 mg PO QAM fluticasone propionate 50 mcg/actuation [place],Suspension 1 spray INTRANASAL HS folic acid 1 mg Tablet 1 mg PO QAM Qty: 30 0RF Rx Instructions: OTC thiamine HCl (vitamin B1) 100 mg Tablet 100 mg PO QAM Qty: 30 0RF Label Comments: unable to obtain from pharmacy Rx Instructions: OTC anastrozole 1 mg tablet 1 mg PO QAM metoprolol succinate 50 mg tablet extended release 24 hr 50 mg PO QAM Label Comments: pt. reporting she has only been taking 25mg BID rather than 50mg. states that she breaks the 50mg tabs in half. Discontinued propranolol 20 mg tablet 20 mg PO BID Discharge Orders: Discharge Order (Routine); Ordered 07/29/22 Ordered By: Alexsi Delgado Admission Data Admit Date/Time: 07/25/22 12:40 Attending Provider: lAexis Delgado Admit Provider: Alexis Delgado Primary Care Provider: Latoya Valerio Other Providers: Alexis Delgado ; Diogo Campbell Other Interventions: Discharge Summary Assessment (RN) Last Done: 07/29/22 17:17 Coding Level of Care Code D/C DAY MANAGEMENT >30 MINS Diagnoses Alcohol withdrawal F10.939 Delirium tremens F10.931 Alcohol abuse F10.10 Alcohol withdrawal hallucinosis F10.932 Transaminitis R74.01 Anxiety F41.9
== END 2022-07-29 17:38 | disposition home or self-care (01) | DRG 897 ==
LOC: ED 10:31 → 2N 12:40 → 4W 07-26 10:23 → 1E 07-26 14:02 → 2W 07-28 23:42

== ENCOUNTER 2023-06-05 23:43 | Inpatient (IN) ==
[2023-06-06] MEDS ORDERED: CEROVITE ADV FORMULA TAB PO STA (00:30)
[2023-06-06] MEDS ORDERED: ONDANSETRON INJ 2 MG/ML 2 ML VIAL IV STA (00:30)
[2023-06-06] MEDS ORDERED: LORazepam 2 MG/1 ML VIAL IV STA ×3 (00:30→05:11)
[2023-06-06] MEDS ORDERED: THIAMINE HCL 100 MG, FOLIC ACID 1 MG in SODIUM CHLORIDE 0.9% 1000ML 1,000 ML IV STA (00:30)
[2023-06-06] MEDS ORDERED: SODIUM CHLORIDE 0.9% 500 ML IV ONE (00:32)
--- NOTE | 2023-06-06 00:38 | Emergency Department Note ---
Impression & Plan [facility] NAME: KAUSHAL ROBLEDO AGE: 57 SEX: F ARRIVES VIA: Ambulance INFORMANT: Patient ED PROVIDER(S): Ashley Gaston DO CHIEF COMPLAINT: Alcohol withdrawal PLAN: Disposition: admit to the [facility] with plans to go to rehab Condition: Stable MEDICAL DECISION MAKING: This is a 57-year-old female patient who presents emergency department with alcohol withdrawal symptoms. Patient admits that she is an alcoholic and only drank 1-2 bottles of wine today instead of her usual 2-3 bottles. The patient intends to go to alcohol rehab. Blood alcohol level today is 318. She received multiple doses of IV Ativan here in the emergency department for her withdrawal symptoms. She was given IV normal saline as a bolus for obvious signs of dehy dration and then started on an IV banana bag. Laboratory studies revealed a glucose of 122 as well as a transaminitis. Patient was hemodynamically stable. She had no signs of hallucinations. [facility] and [facility] will [facility] for further inpatient care. Triage Nursing notes reviewed and agree with them. External medical records reviewed including previous admission Vital Signs: reviewed and remarkable for tachycardia Differential diagnosis: Alcohol withdrawal, alcohol intoxication, dehydration ER treatment provided: Cardiac monitoring IV normal saline bolus IV Zofran IV banana bag IV Ativan x2 Diagnostics interpreted by me: ECG: Sinus tachycardia at a rate of [address] segment elevation or signs of ischemia. There is no ectopy. QTc is 440 ms Cardiac Monitoring: Sinus tachycardia at a rate of 109 Laboratory studies: See below HPI: 57/F arrives for evaluation of alcohol withdrawal. Patient describes being alcoholic typically drinking 2-3 bottles of wine a day. She states that she is going through alcohol withdrawal with symptoms of feeling very u ncomfortable, sweaty and hot. She is requesting medications to help her with the symptoms. Patient states that she only drank 1 bottle of wine today with her last drink being at 4 PM this afternoon. PAST MEDICAL HISTORY:See Below PAST SURGICAL HISTORY:See Below FAMILY HISTORY:See Below SOCIAL HISTORY:See Below HOME MEDICATIONS:See list ALLERGIES:See list VITALS:See Below PHYSICAL EXAMINATION: HEENT: Head - normocephalic and atraumatic. Pupils are equal, round, and reactive to light. Extraocular eye muscles are intact, and sclera are anicteric. Nose - moist nasal mucosa without discharge. Mouth - moist buccal mucosa. Oropharynx is nonerythematous and there is no tonsillar exudate or edema noted. Neck: Supple; no cervical lymphadenopathy or thyromegaly Heart: Tachycardic rate and regular rhythm. There is a normal S1 and S2 with no murmurs, clicks, or gallops appreciated. Lungs: Clear to auscultation bilaterally with no wheezes, rales, or rhonchi. Abdomen: Soft, completely nontender, nondistended, with good bowel sounds. There are no palpable pulsatile masses or hepatosplenomegaly. There is no guarding, rigidity, or rebound noted. Extremities: No evidence of cyanosis, clubbing, or edema. There are easily pa lpable peripheral pulses. Skin: warm and diaphoretic with good turgor and no rashes. ED COURSE: Times/Reassessments: 0020: Patient was evaluated in room C4. A complete history and physical was performed. An order was placed for continuous cardiac monitoring. The patient was in a sinus tachycardia at a rate of 109. An IV lock was initiated and labs are drawn as above. The patient was bolused with IV normal saline solution and given a dose of IV Zofran for nausea. She was then given a dose of IV Ativan for her withdrawal symptoms. She was transition to an IV banana bag. She was still experiencing some withdrawal symptoms and was given another dose of IV Ativan. The patient was evaluated by the ED psychiatric nurse outreach case manager to begin outpatient management for transition to rehab. I discussed the case with the [facility] Hospitalist and they will evaluate for further inpatient care. Ashley Gaston DO Past Med/Surg History Medical History Abnormal TSH "on the borderline'-monitoring it and no meds Alcoholism hx-quit drinking most recently 06/05/22. 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 Pt was extubated and didn't start breathing right away, so they reintubated her and took her to ICU; I told the doctors that I was definitely not drinking the day of my procedure either." History of sleep apnea CPap Hypothyroidism monitoring levels d/t allergy to levothyroxine Insomnia Migraine Mood disorder Palpitations "related to drinking, I had SVT's and if I don't drink, I don't have them; have been to the ER to have them checked" f/u Dr. Healy, S Post traumatic stress disorder PSVT (paroxysmal supraventricular tachycardia) with alcohol withdrawl, no problems recently - does follow cardiology [facility] (Dr Jamal Huynh) Rosacea hx Schatzki's ring Ventricular tachycardia from alcohol withdrawl Surgical History H/O colonoscopy 05/01/2016 - perianal skin tag, normal colon H/O esophagogastroduodenoscopy 07/04/2009 - EUS exam- No choledocholithiasis, No masses appreciated in the entire pancreas. EGD exam- Normal examined duodenum. Bilious gastric fluid. Mild gastritis ? bilious etiology. Bx neg for H. pylori. Prominent fold just distal to GEJ. Bx- Squamocolumnar mucosa with mild carditis and hyperplastic changes. Negative for intestinal metaplasia and dysplasia. Medium sized hiatus hernia." On 03/10/17 15:26 Rita España wrote "07/04/2009- EUS exam- No choledocholithiasis, No masses appreciated in the entire pancreas. EGD exam- Normal examined duodenum. Bilious gastric fluid. Mild gastritis ? bilious etiology. This was biopsied to r/o H Pylori. Prominent fold just distal to GEJ. This was biopsied. Medium sized hiatus hernia." History of breast biopsy 11/30/2019 - Left Breast 02/08/2020 - Right Breast History of dilation and curettage 2004 - s/p miscarriage History of lumpectomy of left breast x1; x20 radiation tx., no chemo History of lumpectomy of right breast x2; radiation tx [id number] History of mandibular surgery 1986 History of surgery 05/07/2016 - Anal Tag Removal S/P laparoscopic cholecystectomy 02/23/2004 Family History Mother Breast cancer, Onset Age: 76 Currently battling metastatic breast cancer Grandmother (Paternal) , Passed age 93 of stomach cancer No problems noted. Grandfather (Maternal) , Passed age 72 of colon cancer No problems noted. Father , Passed age 67 of complications from menigioma No problems noted. Aunt Breast cancer, Onset Age: 34 Alive and well Aunt Breast cancer, Onset Age: 62 alive and well Aunt Breast cancer, Onset Age: 62 Alive and well Brother Stroke Dementia Sister No problems noted. Son No problems noted. Other Family history non-contributory Social History Smoking Status: Never smoker Second Hand Exposure: No; Do You Dip or Chew Tobacco: No; Tobacco Cessation Education Requested by Patient: No Hx Alcohol Use: Yes Alcohol type: wine Alcohol Intake Frequency: 4 or More x per/Week Alcohol Intake Frequency Comment: 3 bottles of wine daily for past 30 days Hx Substance Use: No Preferred Language: [place] Communication Ability: Effective Visual Impairment: Limited Hearing Ability: Normal Bulk Fluids Handler Required: No Beliefs That Will Affect Care: None marital status: Current Living Situation: Family Current Living Situation Comment: has [employer] students/ short term workers renting rooms at her home current occupational status: 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 Other Information That Helps Us Care for You: No Feels Safe at Home: Yes Safety Concerns: Feels Safe At This Time Childhood Exposure to Second-Hand Smoke: Yes (Mom ) Diet: regular caffeine: Yes (daily ) during the past year weight has: remained stable Dental Care, Regularly: Yes Assistive Devices: None Allergies Allergies Allergy/AdvReac Type Severity Reaction Status Date / Time levothyroxine Allergy Severe facial Verified 05/12/23 17:25 swelling minocycline [From Minocin] Allergy Mild Rash Verified 05/12/23 17:25 Sulfa (Sulfonamide Allergy Unknown PT DOESN'T Verified 05/12/23 17:25 Antibiotics) REMEMBER REACTION Home Meds Home Medications Medication Instructions Recorded Confirmed atorvastatin 20 mg tablet 20 mg PO HS 02/18/22 06/06/23 cetirizine 10 mg tablet (Zyrtec) 10 mg PO QAM 02/18/22 06/06/23 fluticasone propionate 50 1 spray intranasal HS 02/18/22 06/06/23 mcg/actuation nasal spray,suspension azelastine 137 mcg (0.1 %) nasal 1 spray intranasal QA 05/15/22 06/06/23 spray aerosol melatonin 5 mg tablet 5 mg PO HS PRN Insomnia 05/15/22 05/12/23 anastrozole 1 mg tablet 1 mg PO QAM 07/22/22 06/06/23 metoprolol succinate 50 mg 50 mg PO QAM 07/22/22 06/06/23 tablet,extended release 24 hr albuterol sulfate 90 mcg/actuation 1 - 2 puff inhalation Q6H PRN SOB 05/12/23 06/06/23 aerosol inhaler or wheezing aripiprazole 10 mg tablet 10 mg PO QAM 05/12/23 06/06/23 aripiprazole 5 mg tablet 5 mg PO HS 05/12/23 06/06/23 gabapentin 300 mg capsule 300 mg PO TID 05/12/23 06/06/23 lamotrigine 200 mg tablet 200 mg PO DAILY 05/12/23 06/06/23 trazodone 100 mg tablet 100 mg PO HS 05/12/23 06/06/23 Previous Rx's Medication Instructions Recorded thiamine HCl (vitamin B1) 100 mg 100 mg PO QAM #30 tabs 06/06/22 tablet pantoprazole 40 mg tablet,delayed 40 mg PO BID #60 tabs 05/12/23 release Results & Data (ED) Vital Signs Vital Signs - 24 hr 06/05/23 23:58 06/06/23 00:00 06/06/23 00:30 Temperature 36.6 C Temperature Source Oral Pulse Rate 108 H 103 H 105 H Pulse Rate from SpO2 Sensor 102 H Respiratory Rate 18 13 19 Respiratory Effort / Characteristics Non-Labored Spontaneous Respiratory Depth Normal Blood Pressure 152/90 H 152/90 H 143/99 H Blood Pressure Mean 110 110 113 Pulse Oximetry 97 98 98 Oxygen Delivery Method Room Air Sepsis Recent Fever Within 48 Hours No Sepsis New/Unexplained Change in Mental Status N/A Sepsis Action Taken by Nursing No Action Required 06/06/23 01:00 06/06/23 01:30 Temperature Temperature Source Pulse Rate 104 H 82 Pulse Rate from SpO2 Sensor 102 H 81 Respiratory Rate 15 16 Respiratory Effort / Characteristics Respiratory Depth Blood Pressure 149/93 H 127/90 Blood Pressure Mean 111 102 Pulse Oximetry 99 96 Oxygen Delivery Method Sepsis Recent Fever Within 48 Hours Sepsis New/Unexplained Change in Mental Status Sepsis Action Taken by Nursing Laboratory Data 06/06/23 00:35 Lab Results 06/06/23 06/06/23 06/06/23 Range/Units 00:35 00:35 01:59 Sodium 137 (136-145) mmol/L Potassium 4.1 (3.5-5.1) mmol/L Chloride 95 L (98-107) mmol/L Carbon Dioxide 20 L (21-32) mmol/L Anion Gap 22 H (3-11) BUN 17 (6-23) mg/dl Creatinine 0.87 (0.6-1.2) mg/dl Est Cr Clr Drug Dosing 80.6 ml/min Est GFR ( Amer) 86.9 ml/min Est GFR (Non-Af Amer) 75.0 ml/min BUN/Creatinine Ratio 19.5 (10-20) Glucose 122 H (70-99(Fasting)) mg/dl Calcium 9.4 (8.6-10.3) mg/dl Phosphorus 3.4 (2.5-4.9) mg/dl Magnesium 2.3 (1.7-2.4) mg/dl Total Bilirubin 0.9 (0.2-1.0) mg/dl AST 100 H (13-39) U/L ALT 71 H (7-52) U/L Alkaline Phosphatase 70 (34-104) U/L Total Protein 8.4 H (6.0-8.3) gm/dl Albumin 5.4 H (3.4-5.0) gm/dl Globulin 3.0 (2.5-4.0) gm/dl Albumin/Globulin Ratio 1.8 (0.9-2) Ethyl Alcohol mg/dL 318.4 H (<10.0) mg/dl SARS-CoV-2, RNA, NAAT NEGATIVE (NEGATIVE) Administered Medications Discontinued Medications Thiamine HCl 100 mg/ Folic (Acid 1 mg/ Sodium Chloride) 1,001.2 mls @ 500 mls/hr IV .Q2H1M STA; Protocol Stop: 06/06/23 02:30 Last Admin: 06/06/23 02:41 Dose: 500 mls/hr Documented By: DEANA Sodium Chloride (Nss) 500 mls @ 999 mls/hr IV .Q31M ONE Stop: 06/06/23 01:02 Last Infusion: 06/06/23 02:04 Dose: 0 mls/hr Documented By: Admin: 06/06/23 01:00 Dose: 999 mls/hr Documented By: DEANA Lorazepam (Lorazepam 2 Mg/1 Ml Vial) 1 mg IV NOW STA Stop: 06/06/23 00:31 Last Admin: 06/06/23 00:41 Dose: 1 mg Documented By: MIGUEL ANGEL Lorazepam (Lorazepam 2 Mg/1 Ml Vial) 1 mg IV NOW STA Stop: 06/06/23 01:42 Last Admin: 06/06/23 01:56 Dose: 1 mg Documented By: DEANA Multivitamins/Minerals (Cerovite Adv Formula Tab) 1 tab PO ONE STA Stop: 06/06/23 00:31 Last Admin: 06/06/23 00:41 Dose: 1 tab Documented By: MIGUEL ANGEL Ondansetron HCl (Ondansetron Inj 2 Mg/Ml 2 Ml Vial) 4 mg IV NOW STA Stop: 06/06/23 00:31 Last Admin: 06/06/23 00:41 Dose: 4 mg Documented By: MIGUEL ANGEL Discharge Plan Visit Data Chief Complaint: Alcohol Withdrawal Stated Complaint: Syncope, ETOH ED Provider: Ashley Gaston Discharge Problem: Alcohol withdrawal Patient Disposition: Admitted As Inpatient Discharge Instructions Interventions: ED Discharge Assessment Last Done: 06/06/23 03:37 Alcohol withdrawal Qualifiers: Complication of substance-induced condition: uncomplicated Qualified Code(s): F10.930 - Alcohol use, unspecified with withdrawal, uncomplicated
[2023-06-06 01:06] LABS: Albumin Globulin Ratio 1.8 (0.9-2); Albumin Level 5.4 gm/dl (3.4-5.0); BUN Creatinine Ratio 19.5 (10-20); Bilirubin,Total 0.9 mg/dl (0.2-1.0); Calcium 9.4 mg/dl (8.6-10.3); Creatinine Clr Calc Pharmacy 80.6 ml/min; Est GFR (African American) 86.9 ml/min; Magnesium 2.3 mg/dl (1.7-2.4); Phosphorus 3.4 mg/dl (2.5-4.9); Potassium 4.1 mmol/L (3.5-5.1); Total Protein 8.4 gm/dl (6.0-8.3)
[2023-06-06] MEDS ORDERED: diazePAM 5 MG TABLET PO ONE (02:08)
[2023-06-06] MEDS ORDERED: chlordiazePOXIDE ALCOHOL WITHDRAWL 50MG PO STA (03:48)
[2023-06-06] MEDS ORDERED: ACETAMINOPHEN 325 MG TAB PO PRN (03:48)
[2023-06-06] MEDS ORDERED: ONDANSETRON INJ 2 MG/ML 2 ML VIAL IV PRN (03:48)
[2023-06-06] MEDS ORDERED: Ativan PO Alcohol Withdrawal--Active Protocol PO PRN (03:48)
[2023-06-06] MEDS ORDERED: LORazepam 1 MG TAB PO PRN (03:48)
[2023-06-06] MEDS ORDERED: ALBUTEROL HFA 8 GM INHALER INH PRN (03:48)
[2023-06-06] MEDS ORDERED: LORazepam 2 MG/1 ML VIAL ONE (05:12)
[2023-06-06] MEDS ORDERED: ADENOSINE IV SOLN 3 MG/ML 2 ML VIAL IV ONE ×3 (05:15→05:23)
[2023-06-06] MEDS ORDERED: ADENOSINE IV SOLN 3 MG/ML 2 ML VIAL IV STA ×2 (05:30→05:31)
[2023-06-06] MEDS ORDERED: METOPROLOL TARTRATE 1 MG/ML VIAL IV ONE ×2 (05:31→05:36)
[2023-06-06] MEDS ORDERED: METOPROLOL TARTRATE 1 MG/ML VIAL IV STA ×2 (05:35→05:41)
[2023-06-06] MEDS: chlordiazePOXIDE HCl 25 MG CAP PO SCH ×4 (06:06→20:56)
[2023-06-06] MEDS ORDERED: METOPROLOL TARTRATE 1 MG/ML VIAL IV PRN (06:09)
--- NOTE | 2023-06-06 06:39 | Communication Note ---
Date of Service: June 06, 2023 At approximately 4:45-5AM patient developed SVT with rates to the 180's-200, symptomatic with lightheadedness and dizziness. A valsalva maneuver was attempt ed without success. 2mg of IV Ativan was administered without success. 6mg of IV adenosine was administered without success. 12mg of IV adenosine was then administered with breakage of the SVT to A. fib w/ RVR with rates in the 150's- 160's. 5mg Lopressor x2 was administered to the patient with rates coming down to the 120's-130's. CPAP qHS was ordered for patient, she states she is supposed to wear at home but doesn't always do so. Cardiology was consulted at this time, appreciate recommendations for SVT and new onset A fib RVR.
--- NOTE | 2023-06-06 07:10 | History & Physical Report ---
Date of Service June 06, 2023 Assessment & Plan (1) Alcohol withdrawal: Plan: 57yo female with EtOH withdrawal -Librium taper -Ativan as needed -Folic acid daily -Thiamine daily -Maintain seizure precaution (2) Dyslipidemia: Plan: -Continue Atorvastatin (3) Supraventricular tachycardia: Plan: Given adenosine and metoprolol -Metoprolol IV as needed -Cardiology consultation appreciated -Treatment of EtOH withdrawal -Metoprolol 50mg po daily (4) Bipolar 1 disorder: Plan: -Continue Lamictal -Continue Trazodone -Continue gabapentin -Continue Abilify Admission and Anticipated Discharge Date Admission Date: June 06, 2023 History of Present Illness Chief Complaint: EtOH withdrawal Primary Care Provider: Latoya Valerio Brigid Perla is a 57yo female with history of EtOH abuse, Depression and HLP presenting with EtOH withdrawal. Patient admits to drinking 3 bottles of wine daily - she has been trying to cut back. Today she had one bottle of wine. Last drink was 06/05/23 at 20:00. She started feeling shaky tonight. Has history of complicated withdrawals with hallucinations Was in rehab last Fall. Attends AA on occasion Is on Gabapentin for anxiety Allergies Allergy/AdvReac Type Severity Reaction Status Date / Time levothyroxine Allergy Severe facial Verified 05/12/23 17:25 swelling minocycline [From Minocin] Allergy Mild Rash Verified 05/12/23 17:25 Sulfa (Sulfonamide Allergy Unknown PT DOESN'T Verified 05/12/23 17:25 Antibiotics) REMEMBER REACTION Home Medications Medication Instructions Recorded Confirmed Type atorvastatin 20 mg tablet 20 mg PO HS 02/18/22 06/06/23 History cetirizine 10 mg tablet (Zyrtec) 10 mg PO QAM 02/18/22 06/06/23 History fluticasone propionate 50 1 spray intranasal HS 02/18/22 06/06/23 History mcg/actuation nasal spray,suspension azelastine 137 mcg (0.1 %) nasal 1 spray intranasal QAM 05/15/22 06/06/23 Histo ry spray aerosol melatonin 5 mg tablet 5 mg PO HS PRN Insomnia 05/15/22 05/12/23 History thiamine HCl (vitamin B1) 100 mg 100 mg PO QAM #30 tabs 06/06/22 05/12/23 Rx tablet anastrozole 1 mg tablet 1 mg PO QAM 07/22/22 06/06/23 History metoprolol succinate 50 mg 50 mg PO QAM 07/22/22 06/06/23 History tablet,extended release 24 hr albuterol sulfate 90 mcg/actuation 1 - 2 puff inhalation Q6H PRN SOB 05/12/23 06/06/23 History aerosol inhaler or wheezing aripiprazole 10 mg tablet 10 mg PO QAM 05/12/23 06/06/23 History aripiprazole 5 mg tablet 5 mg PO HS 05/12/23 06/06/23 History gabapentin 300 mg capsule 300 mg PO TID 05/12/23 06/06/23 History lamotrigine 200 mg tablet 200 mg PO DAILY 05/12/23 06/06/23 History pantoprazole 40 mg tablet,delayed 40 mg PO BID #60 tabs 05/12/23 06/06/23 Rx release trazodone 100 mg tablet 100 mg PO HS 05/12/23 06/06/23 History Past Med/Surg History Medical History Abnormal TSH "on the borderline'-monitoring it and no meds Alcoholism hx-quit drinking most recently 06/05/22. 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 Pt was extubated and didn't start breathing right away, so they reintubated her and took her to ICU; I told the doctors that I was definitely not drinking the day of my procedure either." History of sleep apnea CPap Hypothyroidism monitoring levels d/t allergy to levothyroxine Insomnia Migraine Mood disorder Palpitations "related to drinking, I had SVT's and if I don't drink, I don't have them; have been to the ER to have them checked" f/u Dr. Healy, [facility] Post traumatic stress disorder PSVT (paroxysmal supraventricular tachycardia) with alcohol withdrawl, no problems recently - does follow cardiology [facility] (Dr. Huynh) Rosacea hx Schatzki's ring Ventricular tachycardia from alcohol withdrawl Surgical History H/O colonoscopy 05/01/2016 - perianal skin tag, normal colon H/O esophagogastroduodenoscopy 07/04/2009 - EUS exam- No choledocholithiasis, No masses appreciated in the entire pancreas. EGD exam- Normal examined duodenum. Bilious gastric fluid. Mild gastritis ? bilious etiology. Bx neg for H. pylori. Prominent fold just distal to GEJ. Bx- Squamocolumnar mucosa with mild carditis and hyperplastic changes. Negative for intestinal metaplasia and dysplasia. Medium sized hiatus hernia." On 03/10/17 15:26 Rita Taco wrote "07/04/2009- EUS exam- No choledocholithiasis, No masses appreciated in the entire pancreas. EGD exam- Normal examined duodenum. Bilious gastric fluid. Mild gastritis ? bilious etiology. This was biopsied to r/o H Pylori. Prominent fold just distal to GEJ. This was biopsied. Medium sized hiatus hernia." History of breast biopsy 11/30/2019 - Left Breast 02/08/2020 - Right Breast History of dilation and curettage 2003 - s/p miscarriage History of lumpectomy of left breast x1; x20 radiation tx., no chemo History of lumpectomy of right breast x2; radiation tx [id number] History of mandibular surgery 1985 History of surgery 05/07/2016 - Anal Tag Removal S/P laparoscopic cholecystectomy 02/23/2004 Family History Mother Breast cancer, Onset Age: 76 Currently battling metastatic breast cancer Grandmother (Paternal) , Passed age 93 of stomach cancer No problems noted. Grandfather (Maternal) , Passed age 72 of colon cancer No problems noted. Father , Passed age 67 of complications from menigioma No problems noted. Aunt Breast cancer, Onset Age: 34 Alive and well Aunt Breast cancer, Onset Age: 62 alive and well Aunt Breast cancer, Onset Age: 62 Alive and well Brother Stroke Dementia Sister No problems noted. Son No problems noted. Other Family history non-contributory Social History Smoking Status: Never smoker Second Hand Exposure: No; Do You Dip or Chew Tobacco: No; Tobacco Cessation Education Requested by Patient: No Hx Alcohol Use: Yes Alcohol type: wine Alcohol Intake Frequency: 4 or More x per/Week Alcohol Intake Frequency Comment: 3 bottles of wine daily for past 30 days Hx Substance Use: No Preferred Language: Wolof Communication Ability: Effective Visual Impairment: Limited Hearing Ability: Normal Assistant Import Manager Required: No Beliefs That Will Affect Care: None marital status: Current Living Situation: Family Current Living Situation Comment: has [employer] students/ short term workers renting rooms at her home current occupational status: 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 Other Information That Helps Us Care for You: No Feels Safe at Home: Yes Safety Concerns: Feels Safe At This Time Childhood Exposure to Second-Hand Smoke: Yes (Mom ) Diet: regular caffeine: Yes (daily ) during the past year weight has: remained stable Dental Care, Regularly: Yes Assistive Devices: None Review of Systems Review of Systems: All systems reviewed & are unremarkable except as noted in HPI & below Physical Exam Physical Exam: General: patient resting comfortably, NAD, non-toxic in appearance, AA&O x 4 Skin: warm, dry, intact, no rashes or lesions HEENT: NC/AT, PERRL, EOMI, anicteric sclera, conjunctiva without injection, external ear normal to inspection and nontender, nares patent, moist mucus membranes, dentition intact, no oropharyngeal lesions, neck supple, trachea midline, no LAD, no thyromegaly, no JVD Heart: +S1/S2, regular, tachycardic, no m/r/g Lungs: equal air entry bilaterally, no rales/rhonchi/wheezes Abd: +BS, soft, NT/ND, no masses/organomegaly/ascites Ext: warm, 2+ pulses in UE/LE bilaterally, no clubbing/cyanosis or edema Neuro: nonfocal, patient AA&O x 4, speech intact, no facial droop, moving all extremities on command with equal strength 5/5 Results & Data Results & Data Vital Signs (Past 12 Hours) Vital Signs Temp Pulse Pulse Resp BP BP Pulse Ox 06/06/23 06:00 123 H 114/91 06/06/23 05:59 128 H 115/92 06/06/23 05:54 120 H 16 97 06/06/23 05:44 120 H 125/97 06/06/23 04:00 06/06/23 04:00 36.6 C 78 18 99/68 L 95 06/06/23 01:30 82 16 127/90 96 06/06/23 01:00 104 H 15 149/93 H 99 06/06/23 00:30 105 H 19 143/99 H 98 06/06/23 00:00 103 H 13 152/90 H 98 06/05/23 23:58 36.6 C 108 H 18 152/90 H 97 O2 Del Method FiO2 06/06/23 06:00 06/06/23 05:59 06/06/23 05:54 30 06/06/23 05:44 06/06/23 04:00 Room Air 06/06/23 04:00 Room Air 06/06/23 01:30 06/06/23 01:00 06/06/23 00:30 06/06/23 00:00 06/05/23 23:58 Room Air Laboratory Results Laboratory Results Sodium 137 mmol/L (136-145) 06/06/23 00:35 Potassium 4.1 mmol/L (3.5-5.1) 06/06/23 00:35 Chloride 95 mmol/L (98-107) L 06/06/23 00:35 Carbon Dioxide 20 mmol/L (21-32) L 06/06/23 00:35 Anion Gap 22 (3-11) H 06/06/23 00:35 BUN 17 mg/dl (6-23) 06/06/23 00:35 Creatinine 0.87 mg/dl (0.6-1.2) 06/06/23 00:35 Est Cr Clr Drug Dosing 80.6 ml/min 06/06/23 00:35 Est GFR ( Amer) 86.9 ml/min 06/06/23 00:35 Est GFR (Non-Af Amer) 75.0 ml/min 06/06/23 00:35 BUN/Creatinine Ratio 19.5 (10-20) 06/06/23 00:35 Glucose 122 mg/dl (70-99(Fasting)) H 06/06/23 00:35 Calcium 9.4 mg/dl (8.6-10.3) 06/06/23 00:35 Phosphorus 3.4 mg/dl (2.5-4.9) 06/06/23 00:35 Magnesium 2.3 mg/dl (1.7-2.4) 06/06/23 00:35 Total Bilirubin 0.9 mg/dl (0.2-1.0) 06/06/23 00:35 AST 100 U/L (13-39) H 06/06/23 00:35 ALT 71 U/L (7-52) H 06/06/23 00:35 Alkaline Phosphatase 70 U/L (34-104) 06/06/23 00:35 Total Protein 8.4 gm/dl (6.0-8.3) H 06/06/23 00:35 Albumin 5.4 gm/dl (3.4-5.0) H 06/06/23 00:35 Globulin 3.0 gm/dl (2.5-4.0) 06/06/23 00:35 Albumin/Globulin Ratio 1.8 (0.9-2) 06/06/23 00:35 Ethyl Alcohol mg/dL 318.4 mg/dl (<10.0) H 06/06/23 00:35 SARS-CoV-2, RNA, NAAT NEGATIVE (NEGATIVE) 06/06/23 01:59 PG Care Time/CCT Total # of Minutes Spent Total Time Spent with Patient: Total time spent is greater than 50% in coordination of care (as documented) at patient's floor/unit and/or counseling patient: Coding Level of Care Code 40003 INT INP/OBS CARE 2/55MIN Diagnoses Alcohol withdrawal F10.930 Complication of substance-induced condition: uncomplicated Dyslipidemia E78.5 Supraventricular tachycardia I47.1 Bipolar 1 disorder F31.9 (1) Alcohol withdrawal Complication of substance-induced condition: uncomplicated Qualified Code(s): F10.930 - Alcohol use, unspecified with withdrawal, uncomplicated
[2023-06-06] MEDS: METOPROLOL SUCC 50MG EXT REL TAB PO SCH (07:57)
[2023-06-06] MEDS: ARIPiprazole 10 MG TAB PO SCH (08:02)
[2023-06-06] MEDS: ANASTROZOLE 1 MG TAB PO SCH (08:02)
[2023-06-06] MEDS: FOLIC ACID 1 MG TAB PO SCH (08:03)
[2023-06-06] MEDS: CETIRIZINE HCL 10 MG TABLET PO SCH (08:03)
[2023-06-06] MEDS: AZELASTINE HCL 0.1% NASAL 200 SPRAYS/27,400 MCG BTL SCH (08:03)
[2023-06-06] MEDS: PANTOprazole 40 MG TAB PO SCH ×2 (08:04→20:57)
[2023-06-06] MEDS: lamoTRIgine 100 MG TAB PO SCH (08:04)
[2023-06-06] MEDS: THIAMINE HCL 100 MG TAB PO SCH (08:04)
[2023-06-06] MEDS: GABAPENTIN 300 MG CAP PO SCH ×3 (08:04→20:57)
--- NOTE | 2023-06-06 08:23 | Discharge Summary ---
Date of Service June 06, 2023 Admission HPI Per Admitting Provider Brigid Perla is a 57yo female with history of EtOH abuse, Depression and HLP presenting with EtOH withdrawal. Patient admits to drinking 3 bottles of wine daily - she has been trying to cut back. Today she had one bottle of wine. Last drink was 06/05/23 at 20:00. She started feeling shaky tonight. Has history of complicated withdrawals with hallucinations Was in rehab last Fall. Attends AA on occasion Is on Gabapentin for anxiety Discharge Data Consultations 06/06/23 01:42 ED Decision to Admit Stat 06/06/23 05:43 Consult Cardiology Routine
--- NOTE | 2023-06-06 08:32 | Hospitalist Progress Note ---
Date of Service June 06, 2023 Assessment & Plan (1) Alcohol withdrawal: (2) Dyslipidemia: (3) Supraventricular tachycardia: (4) Bipolar 1 disorder: Plan EtOH Withdrawl EtOH level on admission 318.4 Librium taper Ativan as needed Folic acid daily Thiamine daily Maintain seizure precaution #Supraventricular Tachycardia Resolved, pt self-converted to normal sinus rhythm around 0800 06/06/23 Given adenosine and metoprolol Metoprolol IV as needed Cardiology consultation appreciated Likely related to EtOH w/d Metoprolol 50mg po daily #Dyslipidemia Continue atorvastatin 20mg #Bipolar I Continue Lamictal Continue Trazodone Continue gabapentin Continue Abilify Admission and Anticipated Discharge Date Admission Date: June 06, 2023 Supervising Physician Co-Signing Physician Notes I personally examined the patient and verified all levy points of history and exam, discussed case, and agree with decision making and plan documented by Dr. Dash. Patient on admission for alcohol withdrawal in the setting of severe alcohol use disorder. Examined patient in ICU, she initially presented with SVT, heart rate now in the 80s. Patient on alcohol withdrawal protocol, has known history of DTs, will continue to support her through this. Subjective Brigid Perla is a 57yo female with history of EtOH abuse, Bipolar I and HLD presenting with EtOH withdrawal. Patient admits to drinking 3 bottles of wine daily - she has been trying to cut back. Yesterday, she had one bottle of wine. Last drink was 06/05/23 at 20:00. She started feeling shaky overnight. Has history of complicated withdrawals with hallucinations Was in rehab last Fall. Attends AA on occasion Is on Gabapentin for anxiety This morning she is obtunded and unable to cooperate offer a proper history. She endorses some nausea. Otherwise she is not able to participate in her history and physical. Review of Systems Review of Systems: Reviewed, see HPI Physical Exam Physical Exam: General: patient resting comfortably, NAD, obtunded, unable to participate in her exam Skin: warm, dry, intact, no rashes or lesions HEENT: NC/AT, PERRL, EOMI, anicteric sclera, conjunctiva without injection, external ear normal to inspection and nontender, nares patent, moist mucus membranes, dentition intact, no oropharyngeal lesions, neck supple, trachea midline, no LAD, no thyromegaly, no JVD Heart: +S1/S2, regular, tachycardic, no m/r/g Lungs: equal air entry bilaterally, no rales/rhonchi/wheezes Abd: +BS, soft, mild abd tenderness, no masses/organomegaly/ascites : mcintosh catheter in place and draining Ext: warm, 2+ pulses in UE/LE bilaterally, no clubbing/cyanosis or edema Results & Data Results & Data Vital Signs (Past 12 Hours) Vital Signs Temp Pulse Pulse Resp BP BP Pulse Ox 06/06/23 07:30 140 H 19 104/76 100 06/06/23 07:18 143 H 16 107/69 100 06/06/23 07:10 143 H 20 107/79 06/06/23 07:05 139 H 19 104/78 06/06/23 07:00 145 H 19 06/06/23 07:00 103/73 06/06/23 06:55 77/62 L 06/06/23 06:55 146 H 17 06/06/23 06:50 96/80 L 06/06/23 06:50 139 H 19 06/06/23 06:45 130 H 20 06/06/23 06:45 111/96 06/06/23 06:40 127 H 17 100 06/06/23 06:40 122/75 06/06/23 06:35 133 H 20 06/06/23 06:35 108/91 06/06/23 06:25 97/83 L 06/06/23 06:25 140 H 30 H 06/06/23 06:21 135 H 21 100 06/06/23 06:21 122/73 06/06/23 06:17 126/95 06/06/23 06:17 131 H 23 100 06/06/23 06:10 118/97 06/06/23 06:10 127 H 21 06/06/23 06:05 129 H 28 H 99 06/06/23 06:05 125/81 06/06/23 06:00 123 H 28 H 100 06/06/23 06:00 114/91 06/06/23 05:55 125 H 21 99 06/06/23 05:55 120/95 06/06/23 05:50 126 H 20 98 06/06/23 05:50 132/87 06/06/23 05:45 123/101 H 06/06/23 05:45 125 H 12 98 06/06/23 05:40 144 H 15 95 06/06/23 05:40 125/97 06/06/23 05:35 114/97 06/06/23 05:35 137 H 16 06/06/23 05:30 144 H 23 93 06/06/23 05:30 142/90 H 06/06/23 05:25 190 H 25 H 90 06/06/23 05:25 110/83 06/06/23 05:15 110/85 06/06/23 05:15 190 H 20 92 06/06/23 05:10 192 H 17 96 06/06/23 05:10 106/81 06/06/23 05:03 121/87 06/06/23 05:03 187 H 33 H 98 06/06/23 05:01 185 H 15 06/06/23 05:01 99/70 L 06/06/23 05:00 79 15 98 06/06/23 04:06 99 H 19 06/06/23 04:06 99/68 L 06/06/23 04:05 102 H 13 06/06/23 06:00 123 H 114/91 06/06/23 05:59 128 H 115/92 06/06/23 05:54 120 H 16 97 06/06/23 05:44 120 H 125/97 06/06/23 04:00 06/06/23 04:00 36.6 C 78 18 99/68 L 95 06/06/23 01:30 82 16 127/90 96 06/06/23 01:00 104 H 15 149/93 H 99 06/06/23 00:30 105 H 19 143/99 H 98 06/06/23 00:00 103 H 13 152/90 H 98 06/05/23 23:58 36.6 C 108 H 18 152/90 H 97 O2 Del Method FiO2 06/06/23 07:30 CPAP 30 06/06/23 07:18 CPAP 30 06/06/23 07:10 CPAP 30 06/06/23 07:05 CPAP 30 06/06/23 07:00 06/06/23 07:00 06/06/23 06:55 06/06/23 06:55 06/06/23 06:50 06/06/23 06:50 06/06/23 06:45 06/06/23 06:45 06/06/23 06:40 06/06/23 06:40 06/06/23 06:35 06/06/23 06:35 06/06/23 06:25 06/06/23 06:25 06/06/23 06:21 06/06/23 06:21 06/06/23 06:17 06/06/23 06:17 06/06/23 06:10 06/06/23 06:10 06/06/23 06:05 06/06/23 06:05 06/06/23 06:00 06/06/23 06:00 06/06/23 05:55 06/06/23 05:55 06/06/23 05:50 06/06/23 05:50 06/06/23 05:45 06/06/23 05:45 06/06/23 05:40 06/06/23 05:40 06/06/23 05:35 06/06/23 05:35 06/06/23 05:30 06/06/23 05:30 06/06/23 05:25 06/06/23 05:25 06/06/23 05:15 06/06/23 05:15 06/06/23 05:10 06/06/23 05:10 06/06/23 05:03 06/06/23 05:03 06/06/23 05:01 06/06/23 05:01 06/06/23 05:00 06/06/23 04:06 06/06/23 04:06 06/06/23 04:05 06/06/23 06:00 06/06/23 05:59 06/06/23 05:54 06/06/23 05:44 06/06/23 04:00 Room Air 06/06/23 04:00 Room Air 06/06/23 01:30 06/06/23 01:00 06/06/23 00:30 06/06/23 00:00 06/05/23 23:58 Room Air Laboratory Results Abnormal lab results 06/06/23 06/06/23 Range/Units 00:35 00:35 Chloride 95 L (98-107) mmol/L Carbon Dioxide 20 L (21-32) mmol/L Anion Gap 22 H (3-11) Glucose 122 H (70-99(Fasting)) mg/dl AST 100 H (13-39) U/L ALT 71 H (7-52) U/L Total Protein 8.4 H (6.0-8.3) gm/dl Albumin 5.4 H (3.4-5.0) gm/dl Ethyl Alcohol mg/dL 318.4 H (<10.0) mg/dl Resident Activity Tracking Resident Involvement: Resident Care Provided Care Provided: Adult Hospital Medicine (1) Alcohol withdrawal Complication of substance-induced condition: uncomplicated Qualified Code(s): F10.930 - Alcohol use, unspecified with withdrawal, uncomplicated
--- NOTE | 2023-06-06 12:42 | Cardiology Consultation ---
Date of Consultation June 06, 2023 Assessment & Plan (1) PAF (paroxysmal atrial fibrillation): -this is the 1st documented episode of atrial fibrillation. -likely secondary to alcohol withdrawal. -spontaneously converted after approximately 4 hours. -continue metoprolol succinate. -her CHADSVasc score is "2," age less than 65, no CHF, no anticoagulation indicated. -Dr. Heck to assume her care tomorrow. (2) PSVT (paroxysmal supraventricular tachycardia): -brief episode converted with intravenous adenosine. -likely secondary to alcohol withdrawal. -continue metoprolol succinate. (3) Ventricular tachycardia: -no ventricular dysrhythmia thus far. -does have a history of nonsustained VT with alcohol withdrawal. (4) Alcohol withdrawal: -management per hospitalist team. History of Present Illness Attending Physician: Kanika Walton DO History of Present Illness Mrs. Perla is a 57-year-old female admitted earlier today with alcohol withdrawal and atrial dysrhythmias. This consultation was ordered to assist in her cardiac management. Of note, the patient was previously seen by Dr. Healy and Leida Huynh PA-C. The patient was in her usual state of health until the evening of presentation. The patient has a longstanding history of alcohol abuse and had been drinking 3 bottles of wine daily. She attempted to cut back, however, became tremulous on the evening of presentation. She presented to the emergency room for further care. Of note, she has had several hospitalizations for alcohol withdrawal. She was in a rehab facility last fall and occasionally attends AA meetings. She does have a history atrial and ventricular dysrhythmias with alcohol withdrawal. In February 2010, she demonstrated paroxysms of an SVT and also several episodes of nonsustained ventricular tachycardia. Her dysrhythmias were successfully treated with diltiazem, metoprolol, and detoxification medications. Soon after her admission, the patient developed an SVT. This was treated with adenosine 6 mg followed by 12 mg. However, she converted to atrial fibrillation with a rapid ventricular response. She was given intravenous metoprolol tartrate 5 mg x 2. Her ventricular response is better controlled on a. She spontaneously converted to sinus rhythm after approximately 4 hours. Currently, patient is resting comfortably in bed. She is somnolent but easy to arouse. Past medical and surgical history 1. Hypertension 2. Hypercholesterolemia 3. Nonsustained ventricular tachycardia-with alcohol withdrawal 4. Paroxysmal SVT-with alcohol withdrawal 5. Asthma 6. Hypothyroidism 7. Migraine headaches 8. Obstructive sleep apnea 9. 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 Anxiety/depression 11. Posttraumatic stress disorder 12. Rosacea 13. D&C 14. Laparoscopic cholecystectomy Social history Single, lives with her son No tobacco Alcohol as above Family history Mother is 77 with breast carcinoma Father at 67 from a meningioma Review of systems A 10 review systems was undertaken and negative except that described above. Allergies Allergy/AdvReac Type Severity Reaction Status Date / Time levothyroxine Allergy Severe facial Verified 05/12/23 17:25 swelling minocycline [From Minocin] Allergy Mild Rash Verified 05/12/23 17:25 Sulfa (Sulfonamide Allergy Unknown PT DOESN'T Verified 05/12/23 17:25 Antibiotics) REMEMBER REACTION Home Medications Medication Instructions Recorded Confirmed Type atorvastatin 20 mg tablet 20 mg PO HS 02/18/22 06/06/23 History cetirizine 10 mg tablet (Zyrtec) 10 mg PO QAM 02/18/22 06/06/23 History fluticasone propionate 50 1 spray intranasal HS 02/18/22 06/06/23 History mcg/actuation nasal spray,suspension azelastine 137 mcg (0.1 %) nasal 1 spray intranasal QAM 05/15/22 06/06/23 History spray aerosol melatonin 5 mg tablet 5 mg PO HS PRN Insomnia 05/15/22 05/12/23 History thiamine HCl (vitamin B1) 100 mg 100 mg PO QAM #30 tabs 06/06/22 05/12/23 Rx tablet anastrozole 1 mg tablet 1 mg PO QAM 07/22/22 06/06/23 History metoprolol succinate 50 mg 50 mg PO QAM 07/22/22 06/06/23 History tablet,extended release 24 hr albuterol sulfate 90 mcg/actuation 1 - 2 puff inhalation Q6H PRN SOB 05/12/23 06/06/23 History aerosol inhaler or wheezing aripiprazole 10 mg tablet 10 mg PO QAM 05/12/23 06/06/23 History aripiprazole 5 mg tablet 5 mg PO HS 05/12/23 06/06/23 History gabapentin 300 mg capsule 300 mg PO TID 05/12/23 06/06/23 History lamotrigine 200 mg tablet 200 mg PO DAILY 05/12/23 06/06/23 History pantoprazole 40 mg tablet,delayed 40 mg PO BID #60 tabs 05/12/23 06/06/23 Rx release trazodone 100 mg tablet 100 mg PO HS 05/12/23 06/06/23 History Patient History Medical History (Updated 06/06/23 @ 12:34 by Jamir Parish MD) Abnormal TSH "on the borderline'-monitoring it and no meds Alcoholism hx-quit drinking most recently 06/05/22. 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 Pt was extubated and didn't start breathing right away, so they reintubated her and took her to ICU; I told the doctors that I was definitely not drinking the day of my procedure either." History of sleep apnea CPap Hypothyroidism monitoring levels d/t allergy to levothyroxine Insomnia Migraine Mood disorder Palpitations "related to drinking, I had SVT's and if I don't drink, I don't have them; have been to the ER to have them checked" f/u Dr. Healy, S Post traumatic stress disorder PSVT (paroxysmal supraventricular tachycardia) with alcohol withdrawl, no problems recently - does follow cardiology S (Dr. Huynh) Rosacea hx Schatzki's ring Ventricular tachycardia from alcohol withdrawl Surgical History H/O colonoscopy 05/01/2016 - perianal skin tag, normal colon H/O esophagogastroduodenoscopy 07/04/2009 - EUS exam- No choledocholithiasis, No masses appreciated in the entire pancreas. EGD exam- Normal examined duodenum. Bilious gastric fluid. Mild gastritis ? bilious etiology. Bx neg for H. pylori. Prominent fold just distal to GEJ. Bx- Squamocolumnar mucosa with mild carditis and hyperplastic changes. Negative for intestinal metaplasia and dysplasia. Medium sized hiatus hernia." On 03/10/17 15:26 Rita España wrote "07/04/2009- EUS exam- No choledocholithiasis, No masses appreciated in the entire pancreas. EGD exam- Normal examined duodenum. Bilious gastric fluid. Mild gastritis ? bilious etiology. This was biopsied to r/o H Pylori. Prominent fold just distal to GEJ. This was biopsied. Medium sized hiatus hernia." History of breast biopsy 11/30/2019 - Left Breast 02/08/2020 - Right Breast History of dilation and curettage 2003 - s/p miscarriage History of lumpectomy of left breast x1; x20 radiation tx., no chemo History of lumpectomy of right breast x2; radiation tx [id number] History of mandibular surgery 1985 History of surgery 05/07/2016 - Anal Tag Removal S/P laparoscopic cholecystectomy 02/23/2004 Family History Mother Breast cancer, Onset Age: 76 Currently battling metastatic breast cancer Grandmother (Paternal) , Passed age 93 of stomach cancer No problems noted. Grandfather (Maternal) , Passed age 72 of colon cancer No problems noted. Father , Passed age 67 of complications from menigioma No problems noted. Aunt Breast cancer, Onset Age: 34 Alive and well Aunt Breast cancer, Onset Age: 62 alive and well Aunt Breast cancer, Onset Age: 62 Alive and well Brother Stroke Dementia Sister No problems noted. Son No problems noted. Other Family history non-contributory Social History Smoking Status: Never smoker Second Hand Exposure: No; Do You Dip or Chew Tobacco: No; Tobacco Cessation Education Requested by Patient: No Hx Alcohol Use: Yes Alcohol type: wine Alcohol Intake Frequency: 4 or More x per/Week Alcohol Intake Frequency Comment: 3 bottles of wine daily for past 30 days Hx Substance Use: No Preferred Language: Pakistani Communication Ability: Effective Visual Impairment: Limited Hearing Ability: Normal Floor Press Operator Required: No Beliefs That Will Affect Care: None marital status: Current Living Situation: Family Current Living Situation Comment: has [employer] students/ short term workers renting rooms at her home current occupational status: 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 HEENT exam is negative. Neck is supple with full carotid upstrokes. There are no carotid bruits. No jugular veinous distention. There is no thyromegaly. Cardiovascular exam reveals a regular rhythm with a normal S1 and S2. No S3, S4, or murmurs are noted. Lungs are clear without rales, rhonchi, or wheezes. Abdomen is soft and nontender without bruits. Extremities reveal intact radial artery and posterior tibial pulses bilaterally. There is no peripheral edema. Results & Data Vital Signs (Past 12 Hours) Vital Signs Temp Pulse Pulse Resp BP BP Pulse Ox 06/06/23 07:35 147 H 19 100 06/06/23 10:30 82 20 109/69 95 06/06/23 10:08 81 29 H 112/61 100 06/06/23 08:59 80 06/06/23 08:00 134 H 06/06/23 08:00 06/06/23 09:00 81 26 H 110/66 94 06/06/23 08:48 135 H 24 93/59 L 94 06/06/23 08:30 144 H 19 117/62 97 06/06/23 08:07 141 H 19 102/69 94 06/06/23 07:45 138 H 21 104/62 100 06/06/23 07:30 36.5 C 06/06/23 07:30 140 H 19 104/76 100 06/06/23 07:18 143 H 16 107/69 100 06/06/23 07:10 143 H 20 107/79 06/06/23 07:05 139 H 19 104/78 06/06/23 07:00 145 H 19 06/06/23 07:00 103/73 06/06/23 06:55 77/62 L 06/06/23 06:55 146 H 17 06/06/23 06:50 96/80 L 06/06/23 06:50 139 H 19 06/06/23 06:45 130 H 20 06/06/23 06:45 111/96 06/06/23 06:40 127 H 17 100 06/06/23 06:40 122/75 06/06/23 06:35 133 H 20 06/06/23 06:35 108/91 06/06/23 06:25 97/83 L 06/06/23 06:25 140 H 30 H 06/06/23 06:21 135 H 21 100 06/06/23 06:21 122/73 06/06/23 06:17 126/95 06/06/23 06:17 131 H 23 100 06/06/23 06:10 118/97 06/06/23 06:10 127 H 21 06/06/23 06:05 129 H 28 H 99 06/06/23 06:05 125/81 06/06/23 06:00 123 H 28 H 100 06/06/23 06:00 114/91 06/06/23 05:55 125 H 21 99 06/06/23 05:55 120/95 06/06/23 05:50 126 H 20 98 06/06/23 05:50 132/87 06/06/23 05:45 123/101 H 06/06/23 05:45 125 H 12 98 06/06/23 05:40 144 H 15 95 06/06/23 05:40 125/97 06/06/23 05:35 114/97 06/06/23 05:35 137 H 16 06/06/23 05:30 144 H 23 93 06/06/23 05:30 142/90 H 06/06/23 05:25 190 H 25 H 90 06/06/23 05:25 110/83 06/06/23 05:15 110/85 06/06/23 05:15 190 H 20 92 06/06/23 05:10 192 H 17 96 06/06/23 05:10 106/81 06/06/23 05:03 121/87 06/06/23 05:03 187 H 33 H 98 06/06/23 05:01 185 H 15 06/06/23 05:01 99/70 L 06/06/23 05:00 79 15 98 06/06/23 04:06 99 H 19 06/06/23 04:06 99/68 L 06/06/23 04:05 102 H 13 06/06/23 06:00 123 H 114/91 06/06/23 05:59 128 H 115/92 06/06/23 05:54 120 H 16 97 06/06/23 05:44 120 H 125/97 06/06/23 04:00 06/06/23 04:00 36.6 C 78 18 99/68 L 95 06/06/23 01:30 82 16 127/90 96 06/06/23 01:00 104 H 15 149/93 H 99 06/06/23 00:30 105 H 19 143/99 H 98 O2 Del Method O2 Flow Rate FiO2 06/06/23 07:35 30 06/06/23 10:30 Nasal Cannula 2 06/06/23 10:08 Nasal Cannula 2 06/06/23 08:59 06/06/23 08:00 06/06/23 08:00 Nasal Cannula 2 06/06/23 09:00 Nasal Cannula 2 06/06/23 08:48 Nasal Cannula 2 06/06/23 08:30 Nasal Cannula 2 06/06/23 08:07 Nasal Cannula 2 06/06/23 07:45 CPAP 30 06/06/23 07:30 06/06/23 07:30 CPAP 30 06/06/23 07:18 CPAP 30 06/06/23 07:10 CPAP 30 06/06/23 07:05 CPAP 30 06/06/23 07:00 06/06/23 07:00 06/06/23 06:55 06/06/23 06:55 06/06/23 06:50 06/06/23 06:50 06/06/23 06:45 06/06/23 06:45 06/06/23 06:40 06/06/23 06:40 06/06/23 06:35 06/06/23 06:35 06/06/23 06:25 06/06/23 06:25 06/06/23 06:21 06/06/23 06:21 06/06/23 06:17 06/06/23 06:17 06/06/23 06:10 06/06/23 06:10 06/06/23 06:05 06/06/23 06:05 06/06/23 06:00 06/06/23 06:00 06/06/23 05:55 06/06/23 05:55 06/06/23 05:50 06/06/23 05:50 06/06/23 05:45 06/06/23 05:45 06/06/23 05:40 06/06/23 05:40 06/06/23 05:35 06/06/23 05:35 06/06/23 05:30 06/06/23 05:30 06/06/23 05:25 06/06/23 05:25 06/06/23 05:15 06/06/23 05:15 06/06/23 05:10 06/06/23 05:10 06/06/23 05:03 06/06/23 05:03 06/06/23 05:01 06/06/23 05:01 06/06/23 05:00 06/06/23 04:06 06/06/23 04:06 06/06/23 04:05 06/06/23 06:00 06/06/23 05:59 06/06/23 05:54 30 06/06/23 05:44 06/06/23 04:00 Room Air 06/06/23 04:00 Room Air 06/06/23 01:30 06/06/23 01:00 06/06/23 00:30 Laboratory Results CBC notes hemoglobin 14.2, hematocrit 40.6, white count 5.9, and platelet count of [id number]. Electrolytes note a sodium of 137, potassium 4.6, chloride 95, bicarb 20, BUN 17, creatinine 0.87, and glucose of 122. AST is elevated 100 as is the ALT at 71. Magnesium level is normal at 2.3. Phosphorus is normal 3.4. Diagnostic Findings Initial EKG noted a supraventricular tachycardia with a diffuse ST abnormality. Second tracing noted atrial fibrillation with a rapid ventricular response. ostomy nurse now notes sinus rhythm. PG Care Time/CCT Total # of Minutes Spent Total Time Spent with Patient: Total time spent is greater than 50% in coordination of care (as documented) at patient's floor/unit and/or counseling patient: Coding Level of Care Code 33470 IN/OBS CONSULT LVL 4,60M Diagnoses PAF (paroxysmal atrial fibrillation) I48.0 PSVT (paroxysmal supraventricular tachycardia) I47.1 Ventricular tachycardia I47.2 Alcohol withdrawal F10.930 Complication of substance-induced condition: uncomplicated (4) Alcohol withdrawal Complication of substance-induced condition: uncomplicated Qualified Code(s): F10.930 - Alcohol use, unspecified with withdrawal, uncomplicated
--- NOTE | 2023-06-06 13:26 | Electrocardiogram Report ---
Test Reason : Blood Pressure : / mmHG Vent. Rate : 183 BPM Atrial Rate : 182 BPM P-R Int : 000 ms QRS Dur : 082 ms QT Int : 228 ms P-R-T Axes : 000 007 243 degrees QTc Int : 397 ms Supraventricular tachycardia Marked ST abnormality, possible inferior subendocardial injury Abnormal ECG When compared with ECG of 05-JUN-2023 23:54, (unconfirmed) Vent. rate has increased BY 80 BPM T wave inversion now evident in Inferior leads Nonspecific T wave abnormality now evident in Lateral leads Confirmed by Jamir Pairsh ([id number]) on 06/06/2023 1:26:03 PM Referred By: REFERRED SELF Confirmed By:Jamir Parish
--- NOTE | 2023-06-06 13:26 | Electrocardiogram Report ---
Test Reason : Blood Pressure : / mmHG Vent. Rate : 103 BPM Atrial Rate : 103 BPM P-R Int : 136 ms QRS Dur : 080 ms QT Int : 336 ms P-R-T Axes : 052 004 033 degrees QTc Int : 440 ms Sinus tachycardia Otherwise normal ECG When compared with ECG of 25-JUL-2022 15:13, Vent. rate has increased BY 35 BPM Criteria for Septal infarct are no longer Present Confirmed by Jamir Parish ([id number]) on 06/06/2023 1:25:49 PM Referred By: REFERRED SELF Confirmed By:Jamir Parish
--- NOTE | 2023-06-06 13:26 | Electrocardiogram Report ---
Test Reason : Blood Pressure : / mmHG Vent. Rate : 144 BPM Atrial Rate : 108 BPM P-R Int : 000 ms QRS Dur : 080 ms QT Int : 302 ms P-R-T Axes : 000 007 007 degrees QTc Int : 467 ms Atrial fibrillation with rapid ventricular response Nonspecific ST abnormality Abnormal ECG When compared with ECG of 06-JUN-2023 05:05, (unconfirmed) Atrial fibrillation has replaced Sinus rhythm T wave inversion no longer evident in Inferior leads Nonspecific T wave abnormality no longer evident in Lateral leads Confirmed by Jamir Parish ([id number]) on 06/06/2023 1:26:17 PM Referred By: REFERRED SELF Confirmed By:Jamir Parish
[2023-06-06] MEDS: LORazepam 1 MG TAB PO PRN ×2 (15:22→20:56)
[2023-06-06] MEDS: traZODone HCL 100 MG TAB PO SCH (20:57)
[2023-06-06] MEDS: ATORVASTATIN 20 MG TAB PO SCH (20:57)
[2023-06-06] MEDS: FLUTICASONE PROPIONATE NA SPR 16 GM BTL SCH (20:57)
[2023-06-06] MEDS: ARIPiprazole 5 MG TAB PO SCH (20:58)
[2023-06-07 06:08] LABS: Hematocrit (blood only) 41.3 % (37.0-47.0); Hemoglobin 14.2 g/dl (12.0-16.0); Mean Corpuscular Hemoglobin 32.3 pg (25.0-34.0); Mean Corpuscular Hgb Conc 34.4 g/dL (32.0-36.0); Mean Corpuscular Volume 93.9 fL (80.0-100.0); Mean Platelet Volume 9.2 fL (9.4-12.4); Platelet Count 168 K/uL (130-400); RDW Coefficient of Variation 12.8 % (11.5-14.5); RDW Standard Deviation 44.4 fL (36.4-46.3); White Blood Count 8.84 K/ul (4.8-10.8)
[2023-06-07 06:27] LABS: Albumin Level 4.6 gm/dl (3.4-5.0); BUN Creatinine Ratio 25.8 (10-20); Bilirubin Direct 0.3 mg/dl (0-0.2); Calcium 9.2 mg/dl (8.6-10.3); Creatinine Clr Calc Pharmacy 79.2 ml/min; Est GFR (African American) 84.6 ml/min; Total Protein 7.3 gm/dl (6.0-8.3)
[2023-06-07 06:34] LABS: INR 0.9 (0.9-1.1); Prothrombin Time 10.4 Seconds (9.0-12.0)
[2023-06-07] MEDS: chlordiazePOXIDE HCl 25 MG CAP PO SCH ×3 (06:47→20:02)
--- NOTE | 2023-06-07 07:17 | Hospitalist Progress Note ---
Date of Service June 07, 2023 Assessment & Plan (1) Alcohol withdrawal: (2) Dyslipidemia: (3) Supraventricular tachycardia: (4) Bipolar 1 disorder: Plan EtOH Withdrawl EtOH level on admission 318.4 Librium taper Ativan as needed Folic acid daily Thiamine daily Maintain seizure precaution LFTs continue to trend down Care coordination for dual-diagnosis placement as clinical condition continues to improve. #Supraventricular Tachycardia Resolved, pt self-converted to normal sinus rhythm around 0900 06/06/23 Given adenosine and metoprolol Metoprolol IV as needed Cardiology consultation appreciated Likely related to EtOH w/d Metoprolol 50mg po daily #Dyslipidemia Continue atorvastatin 20mg #Bipolar I Continue Lamictal Continue Trazodone Continue gabapentin Continue Abilify Admission and Anticipated Discharge Date Admission Date: June 06, 2023 Supervising Physician Co-Signing Physician Notes I personally examined the patient and verified all levy points of history and exam, discussed case, and agree with decision making and plan documented by Dr. Dash. Patient on admission for alcohol withdrawal in the setting of severe alcohol use disorder. Patient was more alert during exam today, she denied pain, endorsed fatigue, felt thirsty. Patient is interested in rehabilitation, discussed that we will work with case management on her next steps. Patient remains in the ICU, is currently on Librium taper, no seizure this admission but does have a history of DTs. Heart remains in sinus rhythm. CPAP utilized. Mcintosh in place. Last AWSS score 4. Dr. Dash and I had an opportunity to speak to patient's sister Jatinder this afternoon, she traveled up from [place] to steel pickler patient's dog and plans to care for the dog while patient returns to dual diagnosis treatment center. Per report, patient has been struggling with severe alcohol use disorder for at least the past 8 years, she has had a 2-year period of sobriety, recent relapse in setting of worsening sleep and possible almas associated with her bipolar disorder, possibly related to some work- related stress. Patient currently lives alone, does have tenants staying with her, her sister Jatinder is her main support, at present patient is estranged from her son. Loraine Perla is a 57yo female with history of EtOH abuse, Bipolar I and HLD presenting with EtOH withdrawal. Patient admits to drinking 3 bottles of wine daily - she has been trying to cut back. Yesterday, she had one bottle of wine. Last drink was 06/05/23 at 20:00. She started feeling shaky overnight. Has history of complicated withdrawals with hallucinations Was in rehab last Fall. Attends AA on occasion Is on Gabapentin for anxiety Had the opportunity to speak with pt's sister this afternoon. States that her sister has been to rehab at least five times. She has spoken to her sister and she is motivated to seek treatment again. This most recent relapse was likely triggered by alf conversations related to her job. 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 During her last rehab stay or shortly after she was diagnosed as Bipolar I. This time she would require a dual-diagnosis program. Her sister also conveyed that she has benefitted most from programs that include other high-level professionals. This will present a challege to placement. Pt's sister is also taking pt's dog to [place] in order to remove this barrier for Brigid's entry into treatment. We were again asked not to contact the son regarding his mother's condition. The son has dealt with his mother in various stages of her disease and does not wish to be involved any further. Today she is more arousable and able to participate in some portions of our interview. She states that she does wish to enter treatment again and acknowledged her sister being present and offering a home to her dog while she recovers. Review of Systems Review of Systems: reviewed, see HPI Physical Exam Physical Exam: General: patient resting comfortably, NAD, arousable, able to offer basic understanding and answers during our encounter. Skin: warm, dry, intact, no rashes or lesions HEENT: NC/AT, PERRL, EOMI, anicteric sclera, conjunctiva without injection, external ear normal to inspection and nontender, nares patent, moist mucus membranes, dentition intact, no oropharyngeal lesions, neck supple, trachea midline, no LAD, no thyromegaly, no JVD Heart: +S1/S2, regular, tachycardic, no m/r/g Lungs: equal air entry bilaterally, no rales/rhonchi/wheezes Abd: +BS, soft, mild abd tenderness, no masses/organomegaly/ascites : mcintosh catheter in place and draining Ext: warm, 2+ pulses in UE/LE bilaterally, no clubbing/cyanosis or edema Neuro: nonfocal, patient AA&O x 4, speech intact, no facial droop, moving all extremities on command with equal strength 5/5 Results & Data Results & Data Vital Signs (Past 12 Hours) Vital Signs Pulse Resp BP Pulse Ox O2 Del Method FiO2 06/07/23 03:00 84 20 88 L 06/07/23 03:00 119/72 06/07/23 02:00 82 21 94 06/07/23 02:00 112/73 06/07/23 01:00 88 24 92 06/07/23 01:00 122/68 06/07/23 00:00 91 H 22 87 L 06/07/23 00:00 105/69 06/06/23 23:01 91/54 L 06/06/23 23:01 85 19 87 L 06/06/23 23:00 82 20 88 L 06/06/23 22:00 83 20 100 06/06/23 22:00 154/76 H 06/06/23 21:00 76 16 100 06/06/23 21:00 120/75 06/06/23 20:00 81 16 100 06/06/23 20:00 114/73 06/06/23 20:00 CPAP 30 06/06/23 20:08 77 19 100 30 Laboratory Results Abnormal lab results 06/07/23 06/07/23 Range/Units 05:44 05:44 MPV 9.2 L (9.4-12.4) fL Anion Gap 16 H (3-11) BUN/Creatinine Ratio 25.8 H (10-20) Glucose 123 H (70-99(Fasting)) mg/dl Direct Bilirubin 0.3 H (0-0.2) mg/dl AST 59 H (13-39) U/L ALT 53 H (7-52) U/L (1) Alcohol withdrawal Complication of substance-induced condition: uncomplicated Qualified Code(s): F10.930 - Alcohol use, unspecified with withdrawal, uncomplicated
[2023-06-07] MEDS: ARIPiprazole 10 MG TAB PO SCH (08:26)
[2023-06-07] MEDS: ANASTROZOLE 1 MG TAB PO SCH (08:26)
[2023-06-07] MEDS: CETIRIZINE HCL 10 MG TABLET PO SCH (08:27)
[2023-06-07] MEDS: FOLIC ACID 1 MG TAB PO SCH (08:27)
[2023-06-07] MEDS: AZELASTINE HCL 0.1% NASAL 200 SPRAYS/27,400 MCG BTL SCH (08:27)
[2023-06-07] MEDS: GABAPENTIN 300 MG CAP PO SCH ×3 (08:28→20:01)
[2023-06-07] MEDS: lamoTRIgine 100 MG TAB PO SCH (08:28)
[2023-06-07] MEDS: THIAMINE HCL 100 MG TAB PO SCH (08:29)
[2023-06-07] MEDS: METOPROLOL SUCC 50MG EXT REL TAB PO SCH (08:29)
[2023-06-07] MEDS: PANTOprazole 40 MG TAB PO SCH ×2 (08:29→20:01)
--- NOTE | 2023-06-07 12:53 | Cardiology Progress Note ---
Date of Service June 07, 2023 Assessment & Plan (1) PSVT (paroxysmal supraventricular tachycardia): (2) PAF (paroxysmal atrial fibrillation): Plan 57-year-old female with paroxysmal atrial fibrillation/SVT in the setting of alcohol withdrawal, aberrant conduction with faster heart rates Now maintaining sinus rhythm x24 hours. Would continue to treat underlying alcohol issues Maintain metoprolol succinate 50 mg/day Avoid hypokalemia hypomagnesemia Consider echocardiogram once acute issues addressed Contact with any further question Admission and Anticipated Discharge Date Admission Date: June 06, 2023 Subjective Patient seen and examined, chart reviewed. Currently on CPAP but able to respond to questioning. No acute complaints. No further arrhythmias on telemetry able to take medications orally No chest pain or shortness of Review of Systems Review of Systems: All systems reviewed & are unremarkable except as noted in Subjective Physical Exam Constitutional: no acute distress Neck: trachea midline, no thyromegaly Cardiovascular: RRR, no murmur, no edema Results & Data Vital Signs (Past 12 Hours) Vital Signs Temp Pulse Resp BP Pulse Ox O2 Del Method O2 Flow Rate 06/07/23 12:00 91 H 23 114/88 99 Nasal Cannula 2 06/07/23 10:00 85 22 115/68 100 06/07/23 12:00 37.1 C 06/07/23 11:36 86 13 100 06/07/23 09:00 98 H 22 116/79 98 CPAP 06/07/23 08:00 94 H 24 120/83 96 Nasal Cannula 2 06/07/23 07:00 77 18 129/88 99 CPAP 06/07/23 07:00 CPAP 06/07/23 07:00 37.2 C 06/07/23 03:00 84 20 88 L 06/07/23 03:00 119/72 06/07/23 02:00 82 21 94 06/07/23 02:00 112/73 06/07/23 01:00 88 24 92 06/07/23 01:00 122/68 FiO2 06/07/23 12:00 06/07/23 10:00 06/07/23 12:00 06/07/23 11:36 06/07/23 09:00 30 06/07/23 08:00 06/07/23 07:00 30 06/07/23 07:00 30 06/07/23 07:00 06/07/23 03:00 06/07/23 03:00 06/07/23 02:00 06/07/23 02:00 06/07/23 01:00 06/07/23 01:00 Laboratory Results Laboratory Results - last 24 hr 06/07/23 06/07/23 06/07/23 05:44 05:44 05:44 WBC 8.84 RBC 4.40 Hgb 14.2 Hct 41.3 MCV 93.9 MCH 32.3 MCHC 34.4 RDW Std Deviation 44.4 RDW Coeff of Marybeth 12.8 Plt Count 168 MPV 9.2 L PT 10.4 INR 0.9 Sodium 139 Potassium 4.0 Chloride 99 Carbon Dioxide 24 Anion Gap 16 H BUN 23 Creatinine 0.89 Est Cr Clr Drug Dosing 79.2 Est GFR ( Amer) 84.6 Est GFR (Non-Af Amer) 73.0 BUN/Creatinine Ratio 25.8 H Glucose 123 H Calcium 9.2 Total Bilirubin 1.0 Direct Bilirubin 0.3 H AST 59 H ALT 53 H Alkaline Phosphatase 55 Total Protein 7.3 Albumin 4.6
[2023-06-07] MEDS: traZODone HCL 100 MG TAB PO SCH (20:01)
[2023-06-07] MEDS: LORazepam 1 MG TAB PO PRN (20:02)
[2023-06-07] MEDS: ARIPiprazole 5 MG TAB PO SCH (20:02)
[2023-06-07] MEDS: ATORVASTATIN 20 MG TAB PO SCH (20:02)
[2023-06-07] MEDS: FLUTICASONE PROPIONATE NA SPR 16 GM BTL SCH (21:00)
[2023-06-08] MEDS ORDERED: chlordiazePOXIDE HCl 25 MG CAP PO SCH (06:00)
[2023-06-08] MEDS: ANASTROZOLE 1 MG TAB PO SCH (07:47)
[2023-06-08] MEDS: AZELASTINE HCL 0.1% NASAL 200 SPRAYS/27,400 MCG BTL SCH (07:48)
[2023-06-08] MEDS: CETIRIZINE HCL 10 MG TABLET PO SCH (07:48)
[2023-06-08] MEDS: ARIPiprazole 10 MG TAB PO SCH (07:48)
[2023-06-08] MEDS: FOLIC ACID 1 MG TAB PO SCH (07:49)
[2023-06-08] MEDS: lamoTRIgine 100 MG TAB PO SCH (07:49)
[2023-06-08] MEDS: GABAPENTIN 300 MG CAP PO SCH ×3 (07:49→20:43)
[2023-06-08] MEDS: PANTOprazole 40 MG TAB PO SCH ×2 (07:50→20:43)
[2023-06-08] MEDS: THIAMINE HCL 100 MG TAB PO SCH (07:50)
[2023-06-08] MEDS: METOPROLOL SUCC 50MG EXT REL TAB PO SCH (07:50)
--- NOTE | 2023-06-08 18:14 | Billing Data ---
Date of Service June 08, 2023 Coding Level of Care Code 32174 SUB INP/OBS CARE MIN
--- NOTE | 2023-06-08 18:17 | Hospitalist Progress Note ---
Date of Service June 08, 2023 Assessment & Plan (1) Alcohol withdrawal: (2) Dyslipidemia: (3) Supraventricular tachycardia: (4) Bipolar 1 disorder: Plan EtOH Withdrawl EtOH level on admission 318.4 d/c librium taper, ativan PRN Folic acid daily Thiamine daily Maintain seizure precaution LFTs continue to trend down Care coordination for dual-diagnosis placement as clinical condition continues to improve. #Supraventricular Tachycardia Resolved, pt self-converted to normal sinus rhythm around 0900 06/06/23 Given adenosine and metoprolol Metoprolol IV as needed Cardiology consultation appreciated Likely related to EtOH w/d Metoprolol 50mg po daily #Dyslipidemia Continue atorvastatin 20mg #Bipolar I Continue Lamictal Continue Trazodone Continue gabapentin Continue Abilify Admission and Anticipated Discharge Date Admission Date: June 06, 2023 Supervising Physician Co-Signing Physician Notes I personally examined the patient and verified all levy points of history and exam, discussed case, and agree with decision making with Dr Dash still tremulous, spilling some food. Notes that before alcohol withdrawal she did not have any tremor. Not tachycardic. Vitals noted, in general she is awake and alertresident physician and nursing both noted that she was a bit sedated earlier, this seems to be better whenever I see her, she is oriented and other than tremor in no distress. Breathing unlabored no accessory muscle use good effort. Skin shows no rashes no pallor or icterus. Alcohol abuse/withdrawalseems to be improvingwean Librium, continue symptom triggered Ativan. Will need to dive into her baseline psychiatric disorder as I suspect helping this more will likely have more of an impact on her ability to maintain sobriety than purely addiction treatment alone. Otherwise as above DVT proph - lovenox Subjective Brigid Perla is a 57yo female with history of EtOH abuse, Bipolar I and HLD presenting with EtOH withdrawal. Patient admits to drinking 3 bottles of wine daily - she has been trying to cut back. Yesterday, she had one bottle of wine. Last drink was 06/05/23 at 20:00. She started feeling shaky overnight. Has history of complicated withdrawals with hallucinations Was in rehab last Fall. Attends AA on occasion Is on Gabapentin for anxiety Had the opportunity to speak with pt's sister this afternoon. States that her sister has been to rehab at least five times. She has spoken to her sister and she is motivated to seek treatment again. This most recent relapse was likely triggered by half-way conversations related to her job. 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 During her last rehab stay or shortly after she was diagnosed as Bipolar I. This time she would require a dual-diagnosis program. Her sister also conveyed that she has benefitted most from programs that include other high-level professionals. This will present a challege to placement. Pt's sister is also taking pt's dog to [facility] in order to remove this barrier for Brigid's entry into treatment. We were again asked not to contact the son regarding his mother's condition. The son has dealt with his mother in various stages of her disease and does not wish to be involved any further. Today she is more arousable and able to participate in some portions of our interview. She states that she does wish to enter treatment again and acknowledged her sister being present and offering a home to her dog while she recovers. Review of Systems Review of Systems: reviewed, as above Physical Exam Physical Exam: General: patient resting comfortably, NAD, arousable, able to offer basic understanding and answers during our encounter. Skin: warm, dry, intact, no rashes or lesions HEENT: NC/AT, PERRL, EOMI, anicteric sclera, conjunctiva without injection, external ear normal to inspection and nontender, nares patent, moist mucus membranes, dentition intact, no oropharyngeal lesions, neck supple, trachea midline, no LAD, no thyromegaly, no JVD Heart: +S1/S2, regular, tachycardic, no m/r/g Lungs: equal air entry bilaterally, no rales/rhonchi/wheezes Abd: +BS, soft, mild abd tenderness, no masses/organomegaly/ascites : mcintosh catheter in place and draining Ext: warm, 2+ pulses in UE/LE bilaterally, no clubbing/cyanosis or edema Neuro: nonfocal, patient AA&O x 4, speech intact, no facial droop, moving all extremities on command with equal strength 5/5 Results & Data Results & Data Vital Signs (Past 12 Hours) Vital Signs Temp Pulse Pulse Resp BP BP Pulse Ox 06/08/23 15:00 36.8 C 74 17 107/76 96 06/08/23 11:30 36.9 C 79 13 101/78 96 06/08/23 07:00 36.9 C 06/08/23 07:00 06/08/23 07:01 75 18 111/84 96 O2 Del Method O2 Flow Rate 06/08/23 15:00 Room Air 06/08/23 11:30 Room Air 06/08/23 07:00 06/08/23 07:00 Room Air 06/08/23 07:01 Nasal Cannula 2 Resident Activity Tracking Resident Involvement: Resident Care Provided Care Provided: Adult Hospital Medicine (1) Alcohol withdrawal Complication of substance-induced condition: uncomplicated Qualified Code(s): F10.930 - Alcohol use, unspecified with withdrawal, uncomplicated
[2023-06-08] MEDS: LORazepam 1 MG TAB PO PRN ×2 (20:41→23:35)
[2023-06-08] MEDS: ATORVASTATIN 20 MG TAB PO SCH (20:42)
[2023-06-08] MEDS: ARIPiprazole 5 MG TAB PO SCH (20:42)
[2023-06-08] MEDS: FLUTICASONE PROPIONATE NA SPR 16 GM BTL SCH (20:43)
[2023-06-08] MEDS: traZODone HCL 100 MG TAB PO SCH (20:44)
--- NOTE | 2023-06-09 08:02 | Hospitalist Progress Note ---
Date of Service June 09, 2023 Assessment & Plan (1) Alcohol withdrawal: (2) Dyslipidemia: (3) Supraventricular tachycardia: (4) Bipolar 1 disorder: Plan EtOH Withdrawl EtOH level on admission 318.4 continue ativan PRN Folic acid daily Thiamine daily Maintain seizure precaution LFTs continue to trend down Care coordination for dual-diagnosis placement as clinical condition continues to improve. #Supraventricular Tachycardia Resolved, pt self-converted to normal sinus rhythm around 0900 06/06/23 Given adenosine and metoprolol Metoprolol IV as needed Cardiology consultation appreciated Likely related to EtOH w/d Metoprolol 50mg po daily #Dyslipidemia Continue atorvastatin 20mg #Bipolar I Continue Lamictal Continue Trazodone Continue gabapentin Continue Abilify Admission and Anticipated Discharge Date Admission Date: June 06, 2023 Supervising Physician Co-Signing Physician Notes I personally examined the patient and verified all levy points of history and exam, discussed case, and agree with decision making with Dr Dash more confused, d/w nursing extensively. Vitals noted, sleeping -more confused earlier. HR controlled, no tremors at rest Alcohol abuse/withdrawalmore confusion today - probably DT pathology. continue symptom triggered ativan, continue supportive care DVT proph - lovenox Subjective Brigid Perla is a 57yo female with history of EtOH abuse, Bipolar I and HLD presenting with EtOH withdrawal. Patient admits to drinking 3 bottles of wine daily - she has been trying to cut back. Last drink was 06/05/23 at 20:00. She started feeling shaky overnight. Has history of complicated withdrawals with hallucinations Was in rehab last Fall. Attends AA on occasion Is on Gabapentin for anxiety Had the opportunity to speak with pt's sister. States that her sister has been to rehab at least five times. She has spoken to her sister and she is motivated to seek treatment again. This most recent relapse was likely triggered by fdc conversations related to her job. 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 During her last rehab stay or shortly after she was diagnosed as Bipolar I. This time she would require a dual-diagnosis program. Her sister also conveyed that she has benefitted most from programs that include other high-level professionals. This will present a challege to placement. Pt's sister is also taking pt's dog to [place] in order to remove this barrier for Brigid's entry into treatment. We were again asked not to contact the son regarding his mother's condition. The son has dealt with his mother in various stages of her disease and does not wish to be involved any further. Today she was eating breakfast during our exam. With librium taper discontinued she is fairly tremulous. She states that she does wish to enter treatment again and acknowledged her sister being present and offering a home to her dog while she recovers. Overnight, pt had some psychosis and accused staff of "experimenting" on her. She voiced desire to leave the hospital. At this time she is unsafe to do this and may require a 302 and/or evaluation of her capacity for decision making at this time. Spoke to pts sister today to give her an update and answer questions. Review of Systems Review of Systems: reviewed, see hpi Physical Exam Physical Exam: General: patient resting comfortably, NAD, arousable, able to offer basic understanding and answers during our encounter. Tremulous today. Skin: warm, dry, intact, no rashes or lesions HEENT: NC/AT, PERRL, EOMI, anicteric sclera, conjunctiva without injection, external ear normal to inspection and nontender, nares patent, moist mucus membranes, dentition intact, no oropharyngeal lesions, neck supple, trachea midline, no LAD, no thyromegaly, no JVD Heart: +S1/S2, regular, tachycardic, no m/r/g Lungs: equal air entry bilaterally, no rales/rhonchi/wheezes Abd: +BS, soft, mild abd tenderness, no masses/organomegaly/ascites : mcintosh catheter in place and draining Ext: warm, 2+ pulses in UE/LE bilaterally, no clubbing/cyanosis or edema Neuro: nonfocal, patient AA&O x 4, speech intact, no facial droop, moving all extremities on command with equal strength 5/5 Results & Data Results & Data Vital Signs (Past 12 Hours) Vital Signs Temp Pulse Pulse Resp BP Pulse Ox O2 Del Method 06/09/23 03:30 36.6 C 75 20 109/74 97 Room Air 06/09/23 00:00 77 06/08/23 23:00 Room Air 06/08/23 23:21 36.7 C 73 20 110/74 98 Room Air Resident Activity Tracking Resident Involvement: Resident Care Provided Care Provided: Adult Hospital Medicine (1) Alcohol withdrawal Complication of substance-induced condition: uncomplicated Qualified Code(s): F10.930 - Alcohol use, unspecified with withdrawal, uncomplicated
[2023-06-09] MEDS: METOPROLOL SUCC 50MG EXT REL TAB PO SCH (08:49)
[2023-06-09] MEDS: AZELASTINE HCL 0.1% NASAL 200 SPRAYS/27,400 MCG BTL SCH (08:51)
[2023-06-09] MEDS: ANASTROZOLE 1 MG TAB PO SCH (08:52)
[2023-06-09] MEDS: GABAPENTIN 300 MG CAP PO SCH ×3 (08:52→20:01)
[2023-06-09] MEDS: ARIPiprazole 10 MG TAB PO SCH (08:52)
[2023-06-09] MEDS: FOLIC ACID 1 MG TAB PO SCH (08:52)
[2023-06-09] MEDS: lamoTRIgine 100 MG TAB PO SCH (08:52)
[2023-06-09] MEDS: PANTOprazole 40 MG TAB PO SCH ×2 (08:52→20:02)
[2023-06-09] MEDS: THIAMINE HCL 100 MG TAB PO SCH (08:53)
[2023-06-09] MEDS: CETIRIZINE HCL 10 MG TABLET PO SCH (08:53)
[2023-06-09] MEDS: LORazepam 1 MG TAB PO PRN ×2 (08:59→20:00)
[2023-06-09] MEDS: ENOXAPARIN INJ 40 MG/0.4 ML SYR SQ SCH (09:09)
[2023-06-09 10:13] LABS: Basophils # (auto) 0.03 K/uL (0-0.2); Basophils % (auto) 0.5 %; Eosinophils # (auto) 0.29 K/uL (0-0.50); Eosinophils % (auto) 5.2 %; Hematocrit (blood only) 38.1 % (37.0-47.0); Hemoglobin 13.3 g/dl (12.0-16.0); Immature Granulocytes # (auto) 0.02 K/uL (0.01-0.20); Immature Granulocytes % (auto) 0.4 %; Lymphocytes # (auto) 0.89 K/uL (1.2-3.4); Lymphocytes % (auto) 15.9 %; Mean Corpuscular Hgb Conc 34.9 g/dL (32.0-36.0); Mean Corpuscular Volume 91.8 fL (80.0-100.0); Mean Platelet Volume 9.5 fL (9.4-12.4); Monocytes # (auto) 0.59 K/uL (0.11-0.59); Monocytes % (auto) 10.5 %; Neutrophils # (auto) 3.79 K/uL (1.40-6.50); Neutrophils % (auto) 67.5 %; Platelet Count 161 K/uL (130-400); RDW Coefficient of Variation 12.4 % (11.5-14.5); RDW Standard Deviation 41.5 fL (36.4-46.3); Red Blood Count 4.15 M/uL (4.20-5.40); White Blood Count 5.61 K/ul (4.8-10.8)
[2023-06-09 10:28] LABS: Albumin Globulin Ratio 1.5 (0.9-2); BUN Creatinine Ratio 22.5 (10-20); Bilirubin,Total 0.7 mg/dl (0.2-1.0); Calcium 9.1 mg/dl (8.6-10.3); Creatinine Clr Calc Pharmacy 88.2 ml/min; Est GFR (African American) 96.2 ml/min; Globulin 2.6 gm/dl (2.5-4.0); Potassium 3.5 mmol/L (3.5-5.1); Total Protein 6.6 gm/dl (6.0-8.3)
--- NOTE | 2023-06-09 18:34 | Billing Data ---
Date of Service June 09, 2023 Coding Level of Care Code 33979 SUB INP/OBS CARE
[2023-06-09] MEDS: FLUTICASONE PROPIONATE NA SPR 16 GM BTL SCH (20:01)
[2023-06-09] MEDS: ARIPiprazole 5 MG TAB PO SCH (20:03)
[2023-06-09] MEDS: traZODone HCL 100 MG TAB PO SCH (20:03)
[2023-06-09] MEDS: ATORVASTATIN 20 MG TAB PO SCH (20:03)
[2023-06-10] MEDS: LORazepam 1 MG TAB PO PRN (01:46)
[2023-06-10] MEDS: FOLIC ACID 1 MG TAB PO SCH (08:41)
[2023-06-10] MEDS: ANASTROZOLE 1 MG TAB PO SCH (08:41)
[2023-06-10] MEDS: lamoTRIgine 100 MG TAB PO SCH (08:41)
[2023-06-10] MEDS: ENOXAPARIN INJ 40 MG/0.4 ML SYR SQ SCH (08:41)
[2023-06-10] MEDS: AZELASTINE HCL 0.1% NASAL 200 SPRAYS/27,400 MCG BTL SCH (08:41)
[2023-06-10] MEDS: PANTOprazole 40 MG TAB PO SCH ×2 (08:41→20:40)
[2023-06-10 08:42] LABS: Albumin Globulin Ratio 1.4 (0.9-2); Albumin Level 3.8 gm/dl (3.4-5.0); BUN Creatinine Ratio 18.1 (10-20); Bilirubin,Total 0.5 mg/dl (0.2-1.0); Calcium 9.2 mg/dl (8.6-10.3); Creatinine Clr Calc Pharmacy 82.9 ml/min; Est GFR (Non-African American) 79.4 ml/min; Globulin 2.7 gm/dl (2.5-4.0); Potassium 3.6 mmol/L (3.5-5.1); Total Protein 6.5 gm/dl (6.0-8.3)
[2023-06-10] MEDS: GABAPENTIN 300 MG CAP PO SCH ×3 (08:42→20:40)
[2023-06-10] MEDS: THIAMINE HCL 100 MG TAB PO SCH (08:42)
[2023-06-10] MEDS: METOPROLOL SUCC 50MG EXT REL TAB PO SCH (08:42)
[2023-06-10] MEDS: ARIPiprazole 10 MG TAB PO SCH (08:42)
[2023-06-10] MEDS: CETIRIZINE HCL 10 MG TABLET PO SCH (08:42)
--- NOTE | 2023-06-10 10:15 | Hospitalist Progress Note ---
Date of Service June 10, 2023 Assessment & Plan (1) Alcohol withdrawal: (2) Dyslipidemia: (3) Supraventricular tachycardia: (4) Bipolar 1 disorder: Plan EtOH Withdrawl EtOH level on admission 318.4 continue ativan PRN Folic acid daily Thiamine daily Maintain seizure precaution LFTs continue to trend down Care coordination for dual-diagnosis placement as clinical condition continues to improve. #Supraventricular Tachycardia Resolved, pt self-converted to normal sinus rhythm around 0900 06/06/23 Given adenosine and metoprolol Metoprolol IV as needed Cardiology consultation appreciated Likely related to EtOH w/d Metoprolol 50mg po daily #Dyslipidemia Continue atorvastatin 20mg #Bipolar I Continue Lamictal Continue Trazodone Continue gabapentin Continue Abilify Admission and Anticipated Discharge Date Admission Date: June 06, 2023 Supervising Physician Co-Signing Physician Notes I personally examined the patient and verified all lvey points of history and exam, discussed case, and agree with decision making with Dr Dash sleeping soundly every time I passed her room or enter her room. Discussed with resident physicianmuch more lucid today, starting to lean towards intensive outpatient treatment. Vitals noted, sleeping no distress. Breathing unlabored no accessory muscle use good effort. Skin occasionally diaphoretic throughout the day. No tremors at rest alcohol withdrawal/alcohol abuse - probably DT pathology, appears to be abating. continue symptom triggered ativan, continue supportive care, working towards outpatient planning DVT proph - lovenox Subjective Brigid Perla is a 57yo female with history of EtOH abuse, Bipolar I and HLD presenting with EtOH withdrawal. Patient admits to drinking 3 bottles of wine daily - she has been trying to cut back. Last drink was 06/05/23 at 20:00. She started feeling shaky overnight. Has history of complicated withdrawals with hallucinations Was in rehab last Fall. Attends AA on occasion Is on Gabapentin for anxiety Had the opportunity to speak with pt's sister. States that her sister has been to rehab at least five times. She has spoken to her sister and she is motivated to seek treatment again. This most recent relapse was likely triggered by senior care conversations related to her job. 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 During her last rehab stay or brandy rtly after she was diagnosed as Bipolar I. This time she would require a dual- diagnosis program. Her sister also conveyed that she has benefitted most from programs that include other high-level professionals. This will present a challege to placement. Pt's sister is also taking pt's dog to [place] in order to remove this barrier for Brigid's entry into treatment. We were again asked not to contact the son regarding his mother's condition. The son has dealt with his mother in various stages of her disease and does not wish to be involved any further. Today the patient was much more coherent and communicative. She is in NAD, no acute complaints. She voiced that she wants to attend IOP at [facility] in [place]. She would like to receive vivitrol injections. Spoke to pts sister today to give her an update and answer questions. Physical Exam Physical Exam: General: patient resting comfortably, NAD, arousable, able to offer basic understanding and answers during our encounter. Tremulous today. Skin: warm, dry, intact, no rashes or lesions HEENT: NC/AT, PERRL, EOMI, anicteric sclera, conjunctiva without injection, external ear normal to inspection and nontender, nares patent, moist mucus membranes, dentition intact, no oropharyngeal lesions, neck supple, trachea midline, no LAD, no thyromegaly, no JVD Heart: +S1/S2, regular, tachycardic, no m/r/g Lungs: equal air entry bilaterally, no rales/rhonchi/wheezes Abd: +BS, soft, mild abd tenderness, no masses/organomegaly/ascites : mcintosh catheter in place and draining Ext: warm, 2+ pulses in UE/LE bilaterally, no clubbing/cyanosis or edema Neuro: nonfocal, patient AA&O x 4, speech intact, no facial droop, moving all extremities on command with equal strength 5/5 Results & Data Results & Data Vital Signs (Past 12 Hours) Vital Signs Temp Pulse Pulse Resp BP BP Pulse Ox 06/10/23 08:08 36.6 C 89 16 116/82 97 06/10/23 03:08 36.5 C 73 14 107/75 94 06/10/23 01:47 37.0 C 85 18 104/67 97 06/09/23 23:00 84 06/09/23 22:53 37.1 C 72 18 103/69 96 07/18/23 22:47 90 15 92 O2 Del Method FiO2 06/10/23 08:08 Room Air 06/10/23 03:08 Room Air 06/10/23 01:47 Room Air 06/09/23 23:00 06/09/23 22:53 BiPAP 06/09/23 22:47 30 Resident Activity Tracking Resident Involvement: Resident Care Provided Care Provided: Adult Hospital Medicine (1) Alcohol withdrawal Complication of substance-induced condition: uncomplicated Qualified Code(s): F10.930 - Alcohol use, unspecified with withdrawal, uncomplicated
--- NOTE | 2023-06-10 19:08 | Billing Data ---
Date of Service June 10, 2023 Coding Level of Care Code 47672 SUB INP/OBS CARE
[2023-06-10] MEDS: ARIPiprazole 5 MG TAB PO SCH (20:40)
[2023-06-10] MEDS: ATORVASTATIN 20 MG TAB PO SCH (20:40)
[2023-06-10] MEDS: traZODone HCL 100 MG TAB PO SCH (20:40)
[2023-06-10] MEDS: FLUTICASONE PROPIONATE NA SPR 16 GM BTL SCH (20:41)
[2023-06-11] MEDS: MELATONIN 3 MG TAB PO PRN (01:24)
--- NOTE | 2023-06-11 07:17 | Hospitalist Progress Note ---
Date of Service June 11, 2023 Assessment & Plan (1) Alcohol withdrawal: (2) Dyslipidemia: (3) Supraventricular tachycardia: (4) Bipolar 1 disorder: Plan EtOH Withdrawl EtOH level on admission 318.4 continue ativan PRN Folic acid daily Thiamine daily Maintain seizure precaution LFTs continue to trend down Plan for discharge in the coming days IOP, Psych, New PCP: Luís Dash, Seen by PT/OT: rehab vs home. Will continue to work with her while inpt #Supraventricular Tachycardia Resolved, pt self-converted to normal sinus rhythm around 0900 06/06/23 Given adenosine and metoprolol Metoprolol IV as needed Cardiology consultation appreciated Likely related to EtOH w/d Metoprolol 50mg po daily #Dyslipidemia Continue atorvastatin 20mg #Bipolar I Continue Lamictal Continue Trazodone Continue gabapentin Continue Abilify Admission and Anticipated Discharge Date Admission Date: June 06, 2023 Supervising Physician Co-Signing Physician Notes I personally examined the patient and verified all levy points of history and exam, discussed case, and agree with decision making with Dr Dash Still somewhat tremulous but getting better. Discussed options as far as switching to a nonselective beta-vicky versus staying with what were doing given her previous SVTafter discussion, especially given that the tremor is slowly improving, she opted to stick with current course of care. Vitals noted, pleasant awake no distress, not diaphoretic, tremor much more mild than before alcohol withdrawal/alcohol abuse - DT and withdrawal all improving. Hopefully home soon. Now more towards an intensive outpatient plan and close PCP follow- up DVT proph - lovenox Subjective Brigid Perla is a 57yo female with history of EtOH abuse, Bipolar I and HLD presenting with EtOH withdrawal. Patient admits to drinking 3 bottles of wine daily - she has been trying to cut back. Last drink was 06/05/23 at 20:00. She started feeling shaky overnight. Has history of complicated withdrawals with hallucinations Was in rehab last Fall. Attends AA on occasion Is on Gabapentin for anxiety Had the opportunity to speak with pt's sister. States that her sister has been to rehab at least five times. She has spoken to her sister and she is motivated to seek treatment again. This most recent relapse was likely triggered by [facility] conversations related to her job. 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 During her last rehab stay or shortly after she was diagnosed as Bipolar I. This time she would require a dual-diagnosis program. Her sister also conveyed that she has benefitted most from programs that include other high-level professionals. This will present a challege to placement. Pt's sister is also taking pt's dog to [place] in order to remove this barrier for Brigid's entry into treatment. We were again asked not to contact the son regarding his mother's condition. The son has dealt with his mother in various stages of her disease and does not wish to be involved any further. Today the patient was much more coherent and communicative. She is in NAD, no acute complaints. She voiced that she wants to attend IOP at [facility] in [place]. She would like to receive vivitrol injections. Spoke to pts sister today to give her an update and answer questions. Review of Systems Review of Systems: reviewed, see hpi Physical Exam Physical Exam: General: patient resting comfortably, NAD, arousable, able to offer basic understanding and answers during our encounter. Tremulous today. Skin: warm, dry, intact, no rashes or lesions HEENT: NC/AT, PERRL, EOMI, anicteric sclera, conjunctiva without injection, external ear normal to inspection and nontender, nares patent, moist mucus membranes, dentition intact, no oropharyngeal lesions, neck supple, trachea midline, no LAD, no thyromegaly, no JVD Heart: +S1/S2, regular, tachycardic, no m/r/g Lungs: equal air entry bilaterally, no rales/rhonchi/wheezes Abd: +BS, soft, mild abd tenderness, no masses/organomegaly/ascites : mcintosh catheter in place and draining Ext: warm, 2+ pulses in UE/LE bilaterally, no clubbing/cyanosis or edema Neuro: nonfocal, patient AA&O x 4, speech intact, no facial droop, moving all extremities on command with equal strength 5/5 Results & Data Results & Data Vital Signs (Past 12 Hours) Vital Signs Temp Pulse Pulse Resp BP BP Pulse Ox 06/11/23 03:57 36.6 C 68 18 106/72 94 06/10/23 23:36 36.6 C 73 18 111/78 96 06/10/23 20:00 06/10/23 23:11 37.0 C 65 18 111/73 94 06/10/23 19:34 36.7 C 67 18 106/74 96 O2 Del Method O2 Flow Rate 06/11/23 03:57 Nasal Cannula 2 06/10/23 23:36 Room Air 06/10/23 20:00 Room Air 06/10/23 23:11 Room Air 06/10/23 19:34 Room Air Resident Activity Tracking Resident Involvement: Resident Care Provided Care Provided: Adult Hospital Medicine (1) Alcohol withdrawal Complication of substance-induced condition: uncomplicated Qualified Code(s): F10.930 - Alcohol use, unspecified with withdrawal, uncomplicated
[2023-06-11 07:58] LABS: Albumin Globulin Ratio 1.5 (0.9-2); Albumin Level 3.6 gm/dl (3.4-5.0); BUN Creatinine Ratio 18.3 (10-20); Bilirubin,Total 0.4 mg/dl (0.2-1.0); Calcium 9.3 mg/dl (8.6-10.3); Creatinine Clr Calc Pharmacy 83.9 ml/min; Est GFR (African American) 93.4 ml/min; Est GFR (Non-African American) 80.6 ml/min; Globulin 2.4 gm/dl (2.5-4.0); Potassium 3.6 mmol/L (3.5-5.1)
[2023-06-11] MEDS: LORazepam 1 MG TAB PO PRN (09:04)
[2023-06-11] MEDS: METOPROLOL SUCC 50MG EXT REL TAB PO SCH (09:05)
[2023-06-11] MEDS: THIAMINE HCL 100 MG TAB PO SCH (09:06)
[2023-06-11] MEDS: CETIRIZINE HCL 10 MG TABLET PO SCH (09:06)
[2023-06-11] MEDS: ARIPiprazole 10 MG TAB PO SCH (09:06)
[2023-06-11] MEDS: FOLIC ACID 1 MG TAB PO SCH (09:06)
[2023-06-11] MEDS: lamoTRIgine 100 MG TAB PO SCH (09:06)
[2023-06-11] MEDS: ENOXAPARIN INJ 40 MG/0.4 ML SYR SQ SCH (09:07)
[2023-06-11] MEDS: ANASTROZOLE 1 MG TAB PO SCH (09:07)
[2023-06-11] MEDS: PANTOprazole 40 MG TAB PO SCH ×2 (09:07→20:00)
[2023-06-11] MEDS: GABAPENTIN 300 MG CAP PO SCH ×3 (09:07→20:01)
[2023-06-11] MEDS: AZELASTINE HCL 0.1% NASAL 200 SPRAYS/27,400 MCG BTL SCH (09:07)
--- NOTE | 2023-06-11 19:38 | Billing Data ---
Date of Service June 11, 2023 Coding Level of Care Code 82832 SUB INP/OBS CARE
[2023-06-11] MEDS: FLUTICASONE PROPIONATE NA SPR 16 GM BTL SCH (20:00)
[2023-06-11] MEDS: ATORVASTATIN 20 MG TAB PO SCH (20:01)
[2023-06-11] MEDS: ARIPiprazole 5 MG TAB PO SCH (20:01)
[2023-06-11] MEDS: traZODone HCL 100 MG TAB PO SCH (20:01)
[2023-06-12 07:03] LABS: Albumin Globulin Ratio 1.5 (0.9-2); Albumin Level 3.7 gm/dl (3.4-5.0); BUN Creatinine Ratio 16.9 (10-20); Bilirubin,Total 0.4 mg/dl (0.2-1.0); Calcium 9.3 mg/dl (8.6-10.3); Creatinine Clr Calc Pharmacy 77.3 ml/min; Est GFR (African American) 84.6 ml/min; Globulin 2.5 gm/dl (2.5-4.0); Potassium 3.7 mmol/L (3.5-5.1); Total Protein 6.2 gm/dl (6.0-8.3)
--- NOTE | 2023-06-12 07:51 | Hospitalist Progress Note ---
Date of Service June 12, 2023 Assessment & Plan (1) Alcohol withdrawal: (2) Dyslipidemia: (3) Supraventricular tachycardia: (4) Bipolar 1 disorder: Plan EtOH Withdrawl EtOH level on admission 318.4 continue ativan PRN Folic acid daily Thiamine daily Maintain seizure precaution LFTs continue to trend down Plan for discharge in the coming days IOP reached out to patient, working to set this up Psych working towards an appointment PCP follow up 06/24/23 @10:45 w/ Uli Dash @ [facility] Elaina Payan Write script for Antabuse on discharge. Seen by PT/OT: rehab vs home. Will continue to work with her while inpt #Supraventricular Tachycardia Resolved, pt self-converted to normal sinus rhythm around 0900 06/06/23 Given adenosine and metoprolol Metoprolol IV as needed Cardiology consultation appreciated Likely related to EtOH w/d Metoprolol 50mg po daily #Dyslipidemia Continue atorvastatin 20mg #Bipolar I Continue Lamictal Continue Trazodone Continue gabapentin Continue Abilify Admission and Anticipated Discharge Date Admission Date: June 06, 2023 Supervising Physician Co-Signing Physician Notes I personally examined the patient and verified all levy points of history and exam, discussed case, and agree with decision making with Dr Dash main problem now is being very weak. Vitals noted, pleasant awake no distress, not diaphoretic, tremor much more mild than before But persists. Gait is globally weak using a walker very slow steady gait. Nonfocal. alcohol withdrawal/alcohol abuse - DT and withdrawal all improving. Outpatient plan for intensive outpatient and close PCP follow-up as well as psychiatry follow-up. As far as her weakness, I suspect it is really just an illness related myopathyher alcohol withdrawal was fairly severe and there were several days where she was very somnolent, and yet at the same time it does seem disproportionate to what I would expect in a [id number] is really only 1- 2 days where he should even seem to remotely concurrent with true DVT pathology and But she is quite weak. PT OT eval and treat, might need rehabpossibly thiamine deficiency at playsome level but replace aggressively. B12 was borderline low last year, recheck and replace. She requests neurology evaluationI discussed with her I doubt they will have anything significant to add, but certainly would not begrudge her the evaluation and fresh set of eyes. DVT proph - lovenox Subjective Brigid Perla is a 57yo female with history of EtOH abuse, Bipolar I and HLD presenting with EtOH withdrawal. Patient admits to drinking 3 bottles of wine daily - she has been trying to cut back. Last drink was 06/05/23 at 20:00. She started feeling shaky overnight. Has history of complicated withdrawals with hallucinations Was in rehab last Fall. Attends AA on occasion Is on Gabapentin for anxiety Had the opportunity to speak with pt's sister. States that her sister has been to rehab at least five times. She has spoken to her sister and she is motivated to seek treatment again. This most recent relapse was likely triggered by half-way conversations related to her job. 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 During her last rehab stay or shortly after she was diagnosed as Bipolar I. This time she would require a dual-diagnosis program. Her sister also conveyed that she has benefitted most f rom programs that include other high-level professionals. This will present a challege to placement. Pt's sister is also taking pt's dog to [place] in order to remove this barrier for Brigid's entry into treatment. We were again asked not to contact the son regarding his mother's condition. The son has dealt with his mother in various stages of her disease and does not wish to be involved any further. Today the patient was much more coherent and communicative. She is in NAD, no acute complaints. She voiced that she wants to attend IOP at [facility] in [place]. She would like to receive vivitrol injections. Her psychiatrist is at [facility] (Harpreet Olea). She would like to obtain Antabuse on discharge. If she requires outpatient PT she would like to see Review of Systems Review of Systems: reviewed, see hpi Physical Exam Physical Exam: General: patient resting comfortably, NAD, Less Tremulous today. Skin: warm, dry, intact, no rashes or lesions HEENT: NC/AT, PERRL, EOMI, anicteric sclera, conjunctiva without injection, external ear normal to inspection and nontender, nares patent, moist mucus membranes, dentition intact, no oropharyngeal lesions, neck supple, trachea midline, no LAD, no thyromegaly, no JVD Heart: +S1/S2, regular, tachycardic, no m/r/g Lungs: equal air entry bilaterally, no rales/rhonchi/wheezes Abd: +BS, soft, mild abd tenderness, no masses/organomegaly/ascites Ext: warm, 2+ pulses in UE/LE bilaterally, no clubbing/cyanosis or edema Neuro: nonfocal, patient AA&O x 4, speech intact, no facial droop, moving all extremities on command with equal strength 5/5 Results & Data Results & Data Vital Signs (Past 12 Hours) Vital Signs Temp Pulse Resp BP Pulse Ox O2 Del Method 06/12/23 07:15 36.6 C 91 H 16 111/79 96 Room Air 06/11/23 20:15 36.3 C L 74 16 118/86 98 Room Air Resident Activity Tracking Resident Involvement: Resident Care Provided Care Provided: Adult Hospital Medicine (1) Alcohol withdrawal Complication of substance-induced condition: uncomplicated Qualified Code(s): F10.930 - Alcohol use, unspecified with withdrawal, uncomplicated
[2023-06-12] MEDS: GABAPENTIN 300 MG CAP PO SCH ×3 (08:33→20:02)
[2023-06-12] MEDS: PANTOprazole 40 MG TAB PO SCH ×2 (08:34→20:01)
[2023-06-12] MEDS: CETIRIZINE HCL 10 MG TABLET PO SCH (08:34)
[2023-06-12] MEDS: ANASTROZOLE 1 MG TAB PO SCH (08:35)
[2023-06-12] MEDS: THIAMINE HCL 100 MG TAB PO SCH (08:35)
[2023-06-12] MEDS: FOLIC ACID 1 MG TAB PO SCH (08:35)
[2023-06-12] MEDS: lamoTRIgine 100 MG TAB PO SCH (08:36)
[2023-06-12] MEDS: METOPROLOL SUCC 50MG EXT REL TAB PO SCH (08:36)
[2023-06-12] MEDS: ARIPiprazole 10 MG TAB PO SCH (08:38)
[2023-06-12] MEDS: AZELASTINE HCL 0.1% NASAL 200 SPRAYS/27,400 MCG BTL SCH (08:38)
[2023-06-12] MEDS: ENOXAPARIN INJ 40 MG/0.4 ML SYR SQ SCH (08:39)
[2023-06-12] MEDS: LORazepam 1 MG TAB PO PRN ×2 (12:45→20:01)
[2023-06-12] MEDS: THIAMINE HCL 500 MG in SODIUM CHLORIDE 0.9% 50 ML IV SCH (19:50)
[2023-06-12] MEDS: ATORVASTATIN 20 MG TAB PO SCH (20:01)
[2023-06-12] MEDS: FLUTICASONE PROPIONATE NA SPR 16 GM BTL SCH (20:02)
[2023-06-12] MEDS: ARIPiprazole 5 MG TAB PO SCH (20:03)
[2023-06-12] MEDS: traZODone HCL 100 MG TAB PO SCH (20:03)
--- NOTE | 2023-06-12 20:04 | Billing Data ---
Date of Service June 12, 2023 Coding Level of Care Code 84158 SUB INP/OBS CARE MIN
[2023-06-13] MEDS: MELATONIN 3 MG TAB PO PRN (01:34)
[2023-06-13] MEDS: THIAMINE HCL 500 MG in SODIUM CHLORIDE 0.9% 50 ML IV SCH ×3 (03:00→17:56)
--- NOTE | 2023-06-13 06:45 | Hospitalist Progress Note ---
Date of Service June 13, 2023 Assessment & Plan (1) Alcohol withdrawal: (2) Dyslipidemia: (3) Supraventricular tachycardia: (4) Bipolar 1 disorder: (5) Alcohol dependence: Plan 57 y/o F with h/o severe AUD admitted for alcohol withdrawal EtOH Withdrawal -EtOH level on admission 318.4 -On AWSS protocol. -Needed 1mgs lorazepam doses x 2. -Maintain seizure precautions -Folic acid daily -Thiamine daily - LFTs continue to trend down - Plan for discharge in the coming days Severe AUD - Plan for discharge in the coming days -IOP reached out to patient, working to set this up - Psych working towards an appointment - PCP follow up 06/24/23 @10:45 w/ Uli Dash @ [facility] [address] - Script for Antabuse on discharge #Gait disturbance - Tremulousness from AUD likely contributing to gait disturbance. - neurology input noted -if doesn't resolve - consider outpatient MRI brain and EMG #Supraventricular Tachycardia -Resolved, pt self-converted to normal sinus rhythm around 0900 06/06/23 -Given adenosine and metoprolol -Metoprolol IV as needed -Cardiology consultation -Likely related to EtOH w/d -Metoprolol 50mg po daily #Dyslipidemia Continue atorvastatin 20mg #Bipolar I Continue Lamictal Continue Trazodone Continue gabapentin Continue Abilify Ambulation Full code Admission and Anticipated Discharge Date Admission Date: June 06, 2023 Supervising Physician Co-Signing Physician Notes Resident Physician Supervision Note: I independently interviewed and examined the patient and verified the levy history and physical, reviewed labs and image studies and agree with resident findings and care plan. Subjective 57 /o female with history of EtOH abuse, bipolar I and and hyperlipidemia. Patient here for EtOH withdrawal, she has been trying to cut back when she start to feeling shaky overnight.Patient drink 4 bottle of wine daily, last drink was on the day of hospitalization with only one bottle. Patient with hx of withdrawal with hallucinations. She was on rehab last fall, has been of rehab at least 5 times. During her last rehab admission she was diagnosed with Bipolar I. She is contemplating quitting. This time she would require a dual-diagnosis program. She refers want to attend IOP at [facility] in [place]. She would like to received Vivitrol injections. Her psychiatrist is at [facility] (Harpreet Olea) Today the patient is coherent and communicative. She refers feeling weak and sleepy. She is in NAD, no acute distress, no diaphoretic. Tremors present, mild as before. LFTs on decreasing trend, today AST: 58 and ALT 74. Patient with some gate disturbances, probably related due to alcohol withdrawal symptoms. Neuro on case, no additional neuro imaging or test for this admission. Gait is expected to improved with ongoing abstinence of alcohol. Review of Systems Review of Systems: All systems reviewed & are unremarkable except as noted in HPI & below Physical Exam Physical Exam: General: patient resting comfortably, NAD, Less Tremulous today. Sleepy Skin: warm, dry, intact, no rashes or lesions HEENT: NC/AT, PERRL, EOMI, anicteric sclera, conjunctiva without injection, external ear normal to inspection and nontender, nares patent, moist mucus membranes, dentition intact, no oropharyngeal lesions, neck supple, trachea midline, no LAD, no thyromegaly, no JVD Heart: +S1/S2, regular, tachycardic, no m/r/g Lungs: equal air entry bilaterally, no rales/rhonchi/wheezes Abd: +BS, soft, no tenderness,, no masses/organomegaly/ascites Ext: warm, 2+ pulses in UE/LE bilaterally, no clubbing/cyanosis or edema Neuro: nonfocal, patient AA&O x 4, speech intact, no facial droop, moving all extremities on command with equal strength 5/5 Results & Data Results & Data Vital Signs (Past 12 Hours) Vital Signs Temp Pulse Resp BP Pulse Ox O2 Del Method 06/12/23 21:11 36.7 C 69 16 96/65 L 97 Room Air Resident Activity Tracking Resident Involvement: Resident Care Provided Care Provided: Adult Hospital Medicine (1) Alcohol withdrawal Complication of substance-induced condition: uncomplicated Qualified Code(s): F10.930 - Alcohol use, unspecified with withdrawal, uncomplicated (5) Alcohol dependence Complication of substance-induced condition: with unspecified complication Substance use status: in withdrawal Qualified Code(s): F10.239 - Alcohol dependence with withdrawal, unspecified
[2023-06-13] MEDS: ENOXAPARIN INJ 40 MG/0.4 ML SYR SQ SCH (08:20)
[2023-06-13] MEDS: METOPROLOL SUCC 50MG EXT REL TAB PO SCH (08:21)
[2023-06-13] MEDS: ANASTROZOLE 1 MG TAB PO SCH (08:21)
[2023-06-13] MEDS: ARIPiprazole 10 MG TAB PO SCH (08:21)
[2023-06-13] MEDS: AZELASTINE HCL 0.1% NASAL 200 SPRAYS/27,400 MCG BTL SCH (08:21)
[2023-06-13] MEDS: CYANOCOBALAMIN (B-12) 500 MCG TABLET PO SCH (08:22)
[2023-06-13] MEDS: FOLIC ACID 1 MG TAB PO SCH (08:22)
[2023-06-13] MEDS: CETIRIZINE HCL 10 MG TABLET PO SCH (08:22)
[2023-06-13] MEDS: PANTOprazole 40 MG TAB PO SCH ×2 (08:22→20:25)
[2023-06-13] MEDS: GABAPENTIN 300 MG CAP PO SCH ×3 (08:22→20:25)
[2023-06-13] MEDS: lamoTRIgine 100 MG TAB PO SCH (08:22)
[2023-06-13 09:09] LABS: Albumin Globulin Ratio 1.5 (0.9-2); Albumin Level 3.7 gm/dl (3.4-5.0); BUN Creatinine Ratio 17.4 (10-20); Bilirubin,Total 0.4 mg/dl (0.2-1.0); Calcium 9.4 mg/dl (8.6-10.3); Creatinine Clr Calc Pharmacy 74.8 ml/min; Est GFR (African American) 81.2 ml/min; Est GFR (Non-African American) 70.1 ml/min; Globulin 2.5 gm/dl (2.5-4.0); Potassium 3.9 mmol/L (3.5-5.1); Total Protein 6.2 gm/dl (6.0-8.3)
[2023-06-13] MEDS: LORazepam 1 MG TAB PO PRN ×3 (09:26→21:59)
--- NOTE | 2023-06-13 10:51 | Neurology Consultation ---
Date of Consultation June 13, 2023 Assessment & Plan (1) Alcohol dependence: (2) Alcohol withdrawal: Plan 57-year-old female with a longstanding history of alcohol dependency, recently admitted for alcohol withdrawal. Patient's admission complicated by an episode of paroxysmal atrial fibrillation, has been seen by cardiology, currently on metoprolol, no need for anticoagulation. She has a very mild, improving action tremor likely related to alcohol withdrawal. Her gait has improved considerably during this hospitalization and she currently ambulates independently. She does not have signs or symptoms suggestive of neuropathy or myopathy or neuromuscular junction disorder at this time. She does not have signs or symptoms suggestive of stroke, alcohol related cerebellar degeneration, encephalopathy, or spinal cord disease. Given patient's continued clinical improvement, I do not think additional neurological testing is necessary at this time. I expect continued improvement and stabilization with ongoing abstinence from alcohol. She should continue with supplemental thiamine. Metoprolol, as recommended by cardiology, may also be helpful to attenuate her mild tremor which is also likely related to alcohol withdrawal. I do not think she requires a brain MRI at this time. Further, she has not had signs or symptoms suggestive of seizure activity and an EEG is not necessary at this time. If her gait difficulty fails to completely resolve, could consider obtaining outpatient brain MRI and EMG of the lower limbs, to assess for possible alcohol related cerebellar degeneration and peripheral neuropathy. Again, however, I do not think these tests would alter her management currently and are not immediately necessary. History of Present Illness Reason for Consultation: Weakness Requesting Physician: Nolan Attending Physician: Beatriz Smart MD History of Present Illness The patient is a 57-year-old female with a history of alcohol use disorder who presented to the emergency department on June 06 with symptoms of alcohol w ithdrawal. She typically drinks up to 3 bottles of wine per day, consuming her last bottle earlier that afternoon, and presenting with a feeling of being uncomfortable, sweaty, and hot. She has been treated as an inpatient for alcohol dependency previously. She had a blood alcohol level of 318 in the emergency department. She was treated with IV lorazepam and IV fluids and started on supplemental thiamine. She was noted to have a transaminitis and a glucose of 122. No hallucinations at that time. She had a sinus tachycardia. She was seen by cardiology regarding new onset paroxysmal atrial fibrillation that was felt to be likely related to alcohol withdrawal. She was treated with metoprolol, anticoagulation not felt to be necessary. Brief episode of paroxysmal supraventricular tachycardia also noted. Patient symptoms have gradually improved during her hospitalization, she has been ambulating with a walker, and now is able to ambulate independently. She complains of mild post ural dizziness and a vague feeling of weakness in her legs. No weakness of the arms, change in speech, or diplopia. She denies significant myalgia, low back, or neck pain. Allergies Allergy/AdvReac Type Severity Reaction Status Date / Time levothyroxine Allergy Severe facial Verified 05/12/23 17:25 swelling minocycline [From Minocin] Allergy Mild Rash Verified 05/12/23 17:25 Sulfa (Sulfonamide Allergy Unknown PT DOESN'T Verified 05/12/23 17:25 Antibiotics) REMEMBER REACTION Home Medications Medication Instructions Recorded Confirmed Type atorvastatin 20 mg tablet 20 mg PO HS 02/18/22 06/06/23 History cetirizine 10 mg tablet (Zyrtec) 10 mg PO QAM 02/18/22 06/06/23 History fluticasone propionate 50 1 spray intranasal HS 02/18/22 06/06/23 History mcg/actuation nasal spray,suspension azelastine 137 mcg (0.1 %) nasal 1 spray intranasal QAM 05/15/22 06/06/23 History spray aerosol melatonin 5 mg tablet 5 mg PO HS PRN Insomnia 05/15/22 05/12/23 History thiamine HCl (vitamin B1) 100 mg 100 mg PO QAM #30 tabs 06/06/22 05/12/23 Rx tablet anastrozole 1 mg tablet 1 mg PO QAM 07/22/22 06/06/23 History metoprolol succinate 50 mg 50 mg PO QAM 07/22/22 06/06/23 History tablet,extended release 24 hr albuterol sulfate 90 mcg/actuation 1 - 2 puff inhalation Q6H PRN SOB 05/12/23 06/06/23 History aerosol inhaler or wheezing aripiprazole 10 mg tablet 10 mg PO QAM 05/12/23 06/06/23 History aripiprazole 5 mg tablet 5 mg PO HS 05/12/23 06/06/23 History gabapentin 300 mg capsule 300 mg PO TID 05/12/23 06/06/23 History lamotrigine 200 mg tablet 200 mg PO DAILY 05/12/23 06/06/23 History pantoprazole 40 mg tablet,delayed 40 mg PO BID #60 tabs 05/12/23 06/06/23 Rx release trazodone 100 mg tablet 100 mg PO HS 05/12/23 06/06/23 History Patient History Medical History Abnormal TSH "on the borderline'-monitoring it and no meds Alcoholism hx-quit drinking most recently 06/05/22. 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 Pt was extubated and didn't start breathing right away, so they reintubated her and took her to ICU; I told the doctors that I was definitely not drinking the day of my procedure either." History of sleep apnea CPap Hypothyroidism monitoring levels d/t allergy to levothyroxine Insomnia Migraine Mood disorder Palpitations "related to drinking, I had SVT's and if I don't drink, I don't have them; have been to the ER to have them checked" f/u Dr. Healy, [facility] Post traumatic stress disorder PSVT (paroxysmal supraventricular tachycardia) with alcohol withdrawl, no problems recently - does follow cardiology [facility] (Dr. Huynh) Rosacea hx Schatzki's ring Ventricular tachycardia from alcohol withdrawl Surgical History H/O colonoscopy 05/01/2016 - perianal skin tag, normal colon H/O esophagogastroduodenoscopy 07/04/2009 - EUS exam- No choledocholithiasis, No masses appreciated in the entire pancreas. EGD exam- Normal examined duodenum. Bilious gastric fluid. Mild gastritis ? bilious etiology. Bx neg for H. pylori. Prominent fold just distal to GEJ. Bx- Squamocolumnar mucosa with mild carditis and hyperplastic changes. Negative for intestinal metaplasia and dysplasia. Medium sized hiatus hernia." On 03/10/17 15:26 Rita España wrote "07/04/2009- EUS exam- No choledocholithiasis, No masses appreciated in the entire pancreas. EGD exam- Normal examined duodenum. Bilious gastric fluid. Mild gastritis ? bilious etiology. This was biopsied to r/o H Pylori. Prominent fold just distal to GEJ. This was biopsied. Medium sized hiatus hernia." History of breast biopsy 11/30/2019 - Left Breast 02/08/2020 - Right Breast History of dilation and curettage 2003 - s/p miscarriage History of lumpectomy of left breast x1; x20 radiation tx., no chemo History of lumpectomy of right breast x2; radiation tx [id number] History of mandibular surgery 1985 History of surgery 05/07/2016 - Anal Tag Removal S/P laparoscopic cholecystectomy 02/23/2004 Family History Mother Breast cancer, Onset Age: 76 Currently battling metastatic breast cancer Grandmother (Paternal) , Passed age 93 of stomach cancer No problems noted. Grandfather (Maternal) , Passed age 72 of colon cancer No problems noted. Father , Passed age 67 of complications from menigioma No problems noted. Aunt Breast cancer, Onset Age: 34 Alive and well Aunt Breast cancer, Onset Age: 62 alive and well Aunt Breast cancer, Onset Age: 62 Alive and well Brother Stroke Dementia Sister No problems noted. Son No problems noted. Other Family history non-contributory Social History Smoking Status: Never smoker Second Hand Exposure: No; Do You Dip or Chew Tobacco: No; Tobacco Cessation Education Requested by Patient: No Hx Alcohol Use: Yes Alcohol type: wine Alcohol Intake Frequency: 4 or More x per/Week Alcohol Intake Frequency Comment: 3 bottles of wine daily for past 30 days Hx Substance Use: No Preferred Language: American Communication Ability: Effective Visual Impairment: Limited Hearing Ability: Normal Green Hide Inspector Required: No Beliefs That Will Affect Care: None marital status: Current Living Situation: Family Current Living Situation Comment: has [employer] students/ short term workers renting rooms at her home current occupational status: 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 Other Information That Helps Us Care for You: No Feels Safe at Home: Yes Safety Concerns: Feels Safe At This Time Childhood Exposure to Second-Hand Smoke: Yes (Mom ) Diet: regular caffeine: Yes (daily ) during the past year weight has: remained stable Dental Care, Regularly: Yes Assistive Devices: None Review of Systems Constitutional: as per Subjective / HPI and + weakness; no fever and no chills Eyes: no blind spots and no diplopia Ear, Nose, Mouth, Throat: no hearing loss Respiratory: no cough and no dyspnea Cardiovascular: no chest pain and no palpitations Gastrointestinal: no nausea and no vomiting Genitourinary: no dysuria Musculoskeletal: no back pain, no neck pain and no myalgia Integumentary: no rash and no lesions Neurologic: as per Subjective / HPI Psychiatric: + depression and + anxiety Hematologic / Lymphatic: no easy bleeding and no easy bruising Exam (Neuro) Constitutional: well developed and well nourished Eyes: normal visual gotti by confrontation, PERRL and EOM intact bilaterally Cardiovascular: Vessels: no carotid bruit Neurologic: Oriented to:: Person, Place and Time Memory: Short Term Intact and Remote Intact Attention: Span Intact and Concentration Intact Speech Fluency: negative Dysarthria or Dysfluency Fund of Knowledge: Current Events, Past History and Vocabulary Cranial Nerves: Normal II, III, IV, , V, VII, VIII, IX, X, XI and XII Motor Strength: Normal Lower Extremities and Normal Upper Extremities Motor Tone: Normal Lower Extremities and Normal Upper Extremities Muscle Bulk/Involuntary Movements: Action Tremor (Mild bilateral) Sensation: Light Touch Intact, Pain/Temperature Intact, Vibration Intact and Proprioception Intact Coordination: Normal; negative Limited Balance, Dysdiadochokinesia, Finger-Nose Abnormal or Heel-Vargas Abnormal Deep Tendon Reflexes: Rt Triceps: 2+, Lt Triceps: 2+, Rt Biceps: 2+, Lt Biceps: 2+, Rt Brachioradialis: 2+, Lt Brachioradialis: 2+, Rt Patellar: 2+, Lt Patellar: 2+, Rt Ankle: 2+ and Lt Ankle: 2+ Special Tests: negative Babinski Present Gait: Normal Station and Gait Results & Data Vital Signs (Past 12 Hours) Vital Signs Temp Pulse Resp BP Pulse Ox O2 Del Method 06/13/23 08:05 36.7 C 57 L 17 111/75 95 Room Air Laboratory Results Sodium 138, potassium 3.9, BUN 16, creatinine 0.92, glucose 101, calcium 9.4, AST 58, ALT 77, vitamin B12 648, thiamine level pending, folate greater than 22.30, TSH 5.690, free T40.98 Diagnostic Findings An electrocardiogram completed June 06 had revealed atrial fibrillation with rapid ventricular response. A CT of the head completed July 26, 2022 in the context of altered mental status and hallucinations was unremarkable. I independently reviewed these images. There is mild generalized atrophy, no hydrocephalus. There is mild scattered small vessel ischemic disease. Coding Level of Care Code 71914 INT INP/OBS CARE MIN Diagnoses Alcohol dependence F10.239 Complication of substance-induced condition: with unspecified complication Substance use status: in withdrawal Alcohol withdrawal F10.930 Complication of substance-induced condition: uncomplicated (1) Alcohol dependence Complication of substance-induced condition: with unspecified complication Substance use status: in withdrawal Qualified Code(s): F10.239 - Alcohol dependence with withdrawal, unspecified (2) Alcohol withdrawal Complication of substance-induced condition: uncomplicated Qualified Code(s): F10.930 - Alcohol use, unspecified with withdrawal, uncomplicated
[2023-06-13] MEDS: traZODone HCL 100 MG TAB PO SCH (20:25)
[2023-06-13] MEDS: ARIPiprazole 5 MG TAB PO SCH (20:25)
[2023-06-13] MEDS: FLUTICASONE PROPIONATE NA SPR 16 GM BTL SCH (20:26)
[2023-06-13] MEDS: ATORVASTATIN 20 MG TAB PO SCH (20:26)
[2023-06-14] MEDS: THIAMINE HCL 500 MG in SODIUM CHLORIDE 0.9% 50 ML IV SCH ×3 (02:37→11:58)
--- NOTE | 2023-06-14 06:36 | Hospitalist Progress Note ---
Date of Service June 14, 2023 Assessment & Plan (1) Alcohol withdrawal: (2) Dyslipidemia: (3) Supraventricular tachycardia: (4) Bipolar 1 disorder: (5) Alcohol dependence: Plan 57 y/o female with Alcohol use disorder admitted for alcohol withdrawal EtOH Withdrawal - ROSALINDA score 3, on protocol. -EtOH level on admission 318.4 -Maintain seizure precautions -Needed 1 mgs lorazepam x 4 in last 24 hours. -Folic acid and Thiamine daily - LFTs continue to trend down - Plan for discharge in the coming days Severe AUD - Plan for discharge in the coming days -IOP reached out to patient, working to set this up - Psych working towards an appointment - PCP follow up 06/24/23 @10:45 w/ Uli Dash @ [facility] Elaina Payan - Script for Antabuse on discharge #Gait disturbance - Tremulousness from AUD likely contributing to gait disturbance. - Improving - neurology input noted -if doesn't resolve - consider outpatient MRI brain and EMG #Supraventricular Tachycardia -Resolved, pt self-converted to normal sinus rhythm around 0900 06/06/23 -Given adenosine and metoprolol -Metoprolol IV as needed -Cardiology consultation appreciated -Likely related to EtOH w/d -Metoprolol 50mg po daily #Bipolar I Continue Lamictal Continue Trazodone Continue gabapentin Continue Abilify Diet: Heart Healthy DVT Prophylaxis: Lovenox 40 mg daily Full code Admission and Anticipated Discharge Date Admission Date: June 06, 2023 Supervising Physician Co-Signing Physician Notes Resident Physician Supervision Note: I independently interviewed and examined the patient and verified the levy history and physical, reviewed labs and image studies and agree with resident findings and care plan. Subjective 57 /o female with history of EtOH abuse, bipolar I and and hyperlipidemia. Patient here for EtOH withdrawal, she has been trying to cut back when she start to feeling shaky overnight.Patient drink 4 bottle of wine daily, last drink was on the day of hospitalization with only one bottle. Patient with hx of withdrawal with hallucinations. She was on rehab last fall, has been of rehab at least 5 times. During her last rehab admission she was diagnosed with Bipolar I. She is contemplating quitting. This time she would require a dual-diagnosis program. She refers want to attend IOP at [facility] in [place]. She would like to received Vivitrol injections. Her psychiatrist is at [facility] (Harpreet Olea) Today the patient is coherent and communicative, NAD, no diaphoretic. She refers she is improving very well, decreased gait disturbance as well tremors. LFTs on decreasing trend, Patient with some gait disturbances, probably related due to alcohol withdrawal symptoms. Neuro on case, no additional neuro imaging or test for this admission. Gait is expected to improved with ongoing abstinence of alcohol. Review of Systems Constitutional: as per Subjective / HPI; no fever, no chills and no weakness Physical Exam Physical Exam: General: patient resting comfortably, NAD, Less Tremulous today Skin: warm, dry, intact, no rashes or lesions HEENT: NC/AT, PERRL, EOMI, anicteric sclera, conjunctiva without injection, external ear normal to inspection and nontender, nares patent, moist mucus membranes, dentition intact, no oropharyngeal lesions, neck supple, trachea midline, no LAD, no thyromegaly, no JVD Heart: +S1/S2, regular, tachycardic, no m/r/g Lungs: equal air entry bilaterally, no rales/rhonchi/wheezes Abd: +BS, soft, no tenderness,, no masses/organomegaly/ascites Ext: warm, 2+ pulses in UE/LE bilaterally, no clubbing/cyanosis or edema Neuro: nonfocal, patient AA&O x 4, speech intact, no facial droop, moving all extremities on command with equal strength 5/5, Results & Data Results & Data Vital Signs (Past 12 Hours) Vital Signs Temp Pulse Resp BP Pulse Ox O2 Del Method O2 Flow Rate 06/13/23 21:10 36.6 C 75 15 109/72 99 Nasal Cannula 2 Resident Activity Tracking Resident Involvement: Resident Care Provided Care Provided: Adult Hospital Medicine (1) Alcohol withdrawal Complication of substance-induced condition: uncomplicated Qualified Code(s): F10.930 - Alcohol use, unspecified with withdrawal, uncomplicated (5) Alcohol dependence Complication of substance-induced condition: with unspecified complication Substance use status: in withdrawal Qualified Code(s): F10.239 - Alcohol dependence with withdrawal, unspecified
[2023-06-14 07:48] LABS: Albumin Level 3.8 gm/dl (3.4-5.0); Bilirubin,Total 0.4 mg/dl (0.2-1.0); Calcium 9.3 mg/dl (8.6-10.3); Potassium 4.1 mmol/L (3.5-5.1)
[2023-06-14 07:53] LABS: Albumin Globulin Ratio 1.5 (0.9-2); BUN Creatinine Ratio 17.4 (10-20); Creatinine Clr Calc Pharmacy 74.8 ml/min; Est GFR (African American) 81.2 ml/min; Est GFR (Non-African American) 70.1 ml/min; Globulin 2.5 gm/dl (2.5-4.0); Total Protein 6.3 gm/dl (6.0-8.3)
[2023-06-14] MEDS: LORazepam 1 MG TAB PO PRN ×2 (08:37→16:25)
[2023-06-14] MEDS: ANASTROZOLE 1 MG TAB PO SCH (08:38)
[2023-06-14] MEDS: CYANOCOBALAMIN (B-12) 500 MCG TABLET PO SCH (08:38)
[2023-06-14] MEDS: GABAPENTIN 300 MG CAP PO SCH ×3 (08:38→20:21)
[2023-06-14] MEDS: lamoTRIgine 100 MG TAB PO SCH (08:38)
[2023-06-14] MEDS: CETIRIZINE HCL 10 MG TABLET PO SCH (08:38)
[2023-06-14] MEDS: PANTOprazole 40 MG TAB PO SCH ×2 (08:38→20:20)
[2023-06-14] MEDS: FOLIC ACID 1 MG TAB PO SCH (08:39)
[2023-06-14] MEDS: ARIPiprazole 10 MG TAB PO SCH (08:39)
[2023-06-14] MEDS: AZELASTINE HCL 0.1% NASAL 200 SPRAYS/27,400 MCG BTL SCH (08:40)
[2023-06-14] MEDS: ENOXAPARIN INJ 40 MG/0.4 ML SYR SQ SCH (08:41)
[2023-06-14] MEDS: METOPROLOL SUCC 50MG EXT REL TAB PO SCH (10:25)
[2023-06-14] MEDS ORDERED: ONDANSETRON 4 MG OD TAB PO PRN (11:58)
[2023-06-14] MEDS: THIAMINE HCL 50 MG TABLET PO SCH ×2 (14:05→20:18)
[2023-06-14] MEDS: traZODone HCL 100 MG TAB PO SCH (20:20)
[2023-06-14] MEDS: ATORVASTATIN 20 MG TAB PO SCH (20:20)
[2023-06-14] MEDS: FLUTICASONE PROPIONATE NA SPR 16 GM BTL SCH (20:21)
[2023-06-14] MEDS: ARIPiprazole 5 MG TAB PO SCH (20:22)
[2023-06-15] MEDS: LORazepam 1 MG TAB PO PRN ×4 (00:36→23:54)
--- NOTE | 2023-06-15 07:35 | Hospitalist Progress Note ---
Date of Service June 15, 2023 Assessment & Plan (1) Alcohol withdrawal: (2) Dyslipidemia: (3) Supraventricular tachycardia: (4) Bipolar 1 disorder: (5) Alcohol dependence: Plan 57 y/o female with Alcohol use disorder admitted for alcohol withdrawal EtOH Withdrawal -EtOH level on admission 318.4 - AWSS score 1, on protocol. -Needed 1 mg lorazepam x 3 in last 24 hours. -Folic acid and Thiamine daily - LFTs continue to trend down - Plan for discharge in the coming days Severe AUD - Plan for discharge in the coming days -IOP reached out to patient, working to set this up - Psych working towards an appointment - PCP follow up 06/24/23 @10:45 w/ Uli Dash @ [facility] [address] - Script for Antabuse on discharge #Gait disturbance - Tremulousness from AUD likely contributing to gait disturbance. - Improved #Supraventricular Tachycardia -Resolved, pt self-converted to normal sinus rhythm around 0900 06/06/23 -Given adenosine and metoprolol -Metoprolol IV as needed -Cardiology consultation appreciated -Likely related to EtOH w/d -Metoprolol 50mg po daily #Bipolar I Continue Lamictal Continue Trazodone Continue gabapentin Continue Abilify Diet: Heart Healthy DVT Prophylaxis: Lovenox 40 mg daily Full code Admission and Anticipated Discharge Date Admission Date: June 06, 2023 Supervising Physician Co-Signing Physician Notes Resident Physician Supervision Note: I independently interviewed and examined the patient and verified the levy history and physical, reviewed labs and image studies and agree with resident findings and care plan. Subjective 57 /o female with history of EtOH abuse, bipolar I and and hyperlipidemia. Patient here for EtOH withdrawal, she has been trying to cut back when she start to feeling shaky overnight.Patient drink 4 bottle of wine daily, last drink was on the day of hospitalization with only one bottle. Patient with hx of withdrawal with hallucinations. She was on rehab last fall, has been of rehab at least 5 times. During her last rehab admission she was diagnosed with Bipolar I. She is contemplating quitting. This time she would require a dual-diagnosis program. She refers want to attend IOP at [facility] in [place]. She would like to received Vivitrol injections. Her psychiatrist is at [facility] (Harpreet Olea) 06/16: Patient evaluated at bedside, is communicative and coherent and in NAD. Patient notes that she still has the tremor in both hands, took Ativan 1mgx3 in the past 24 hours which helped. Denies withdrawal symptoms. AWSS score of 1 on 06/14 @ 2305. Patient notes that gait is significantly improved, is able to ambulate without assistance. Patient has contacted [facility] IOP program and will be attending 3 days per week following discharge. Patient notes that she has had nocturnal fecal incontinence for the past 4 nights, states that stools have been small and formed, denies watery diarrhea. Pt feels that the only change that has been made has been the vitamins. Review of Systems Review of Systems: All systems reviewed & are unremarkable except as noted in HPI & below Physical Exam Constitutional: WD/WN, vitals as above Respiratory: normal respiratory effort, lungs clear to auscultation Cardiovascular: RRR, no murmur, no edema Musculoskeletal: Patient able to ambulate without assistance, normal gait Skin: no rashes, warm and dry Results & Data Results & Data Vital Signs (Past 12 Hours) Vital Signs Temp Pulse Resp BP BP Pulse Ox O2 Del Method 06/15/23 07:20 36.6 C 66 14 96/60 L 94 Room Air 06/14/23 22:48 36.7 C 69 18 107/72 96 Room Air Resident Activity Tracking Resident Involvement: Resident Care Provided Care Provided: Adult Hospital Medicine (1) Alcohol withdrawal Complication of substance-induced condition: uncomplicated Qualified Code(s): F10.930 - Alcohol use, unspecified with withdrawal, uncomplicated (5) Alcohol dependence Complication of substance-induced condition: with unspecified complication Substance use status: in withdrawal Qualified Code(s): F10.239 - Alcohol dependence with withdrawal, unspecified
[2023-06-15 08:08] LABS: Albumin Globulin Ratio 1.6 (0.9-2); Albumin Level 3.8 gm/dl (3.4-5.0); BUN Creatinine Ratio 19.4 (10-20); Bilirubin,Total 0.3 mg/dl (0.2-1.0); Calcium 9.2 mg/dl (8.6-10.3); Est GFR (African American) 80.2 ml/min; Est GFR (Non-African American) 69.2 ml/min; Globulin 2.4 gm/dl (2.5-4.0); Potassium 4.1 mmol/L (3.5-5.1); Total Protein 6.2 gm/dl (6.0-8.3)
[2023-06-15] MEDS: AZELASTINE HCL 0.1% NASAL 200 SPRAYS/27,400 MCG BTL SCH (08:31)
[2023-06-15] MEDS: ENOXAPARIN INJ 40 MG/0.4 ML SYR SQ SCH (08:31)
[2023-06-15] MEDS: FOLIC ACID 1 MG TAB PO SCH (08:31)
[2023-06-15] MEDS: ANASTROZOLE 1 MG TAB PO SCH (08:32)
[2023-06-15] MEDS: ARIPiprazole 10 MG TAB PO SCH (08:32)
[2023-06-15] MEDS: lamoTRIgine 100 MG TAB PO SCH (08:32)
[2023-06-15] MEDS: GABAPENTIN 300 MG CAP PO SCH ×3 (08:32→20:45)
[2023-06-15] MEDS: METOPROLOL SUCC 50MG EXT REL TAB PO SCH (08:33)
[2023-06-15] MEDS: PANTOprazole 40 MG TAB PO SCH (08:33)
[2023-06-15] MEDS: CETIRIZINE HCL 10 MG TABLET PO SCH (08:33)
[2023-06-15] MEDS: CYANOCOBALAMIN (B-12) 500 MCG TABLET PO SCH (08:33)
[2023-06-15] MEDS: THIAMINE HCL 50 MG TABLET PO SCH ×2 (08:33→20:46)
[2023-06-15] MEDS ORDERED: THIAMINE HCL 100 MG TAB PO SCH (09:00)
[2023-06-15] MEDS: ARIPiprazole 5 MG TAB PO SCH (20:44)
[2023-06-15] MEDS: FLUTICASONE PROPIONATE NA SPR 16 GM BTL SCH (20:45)
[2023-06-15] MEDS: ATORVASTATIN 20 MG TAB PO SCH (20:45)
[2023-06-15] MEDS: traZODone HCL 100 MG TAB PO SCH (20:46)
--- NOTE | 2023-06-16 06:41 | Hospitalist Progress Note ---
Date of Service June 16, 2023 Assessment & Plan (1) Alcohol withdrawal: (2) Dyslipidemia: (3) Supraventricular tachycardia: (4) Bipolar 1 disorder: (5) Alcohol dependence: Plan 57 y/o female with Alcohol use disorder admitted for alcohol withdrawal EtOH Withdrawal -EtOH level on admission 318.4 - AWSS score 1, on protocol. -Needed 1 mg lorazepam x 3 in last 24 hours. -Folic acid and Thiamine daily - LFTs continue to trend down - Plan for discharge in the coming days Severe AUD - Plan for discharge in the coming days -IOP reached out to patient, working to set this up - Psych working towards an appointment - PCP follow up 06/24/23 @10:45 w/ Uli Dash @ [facility] [address] - Script for Antabuse on discharge #Gait disturbance - Tremulousness from AUD likely contributing to gait disturbance. - Improved #Supraventricular Tachycardia -Resolved, pt self-converted to normal sinus rhythm around 0900 06/06/23 -Given adenosine and metoprolol -Metoprolol IV as needed -Cardiology consultation appreciated -Likely related to EtOH w/d -Metoprolol 50mg po daily #Bipolar I Continue Lamictal Continue Trazodone Continue gabapentin Continue Abilify Diet: Heart Healthy DVT Prophylaxis: Lovenox 40 mg daily Full code Admission and Anticipated Discharge Date Admission Date: June 06, 2023 Results & Data Results & Data Vital Signs (Past 12 Hours) Vital Signs Temp Pulse Resp BP Pulse Ox O2 Del Method 06/15/23 20:45 Room Air 06/15/23 21:09 36.9 C 62 16 102/68 97 Room Air (1) Alcohol withdrawal Complication of substance-induced condition: uncomplicated Qualified Code(s): F10.930 - Alcohol use, unspecified with withdrawal, uncomplicated (5) Alcohol dependence Complication of substance-induced condition: with unspecified complication Substance use status: in withdrawal Qualified Code(s): F10.239 - Alcohol depen dence with withdrawal, unspecified
[2023-06-16 07:26] VITALS: O2SAT 95
[2023-06-16] MEDS: LORazepam 1 MG TAB PO PRN ×2 (07:54→14:33)
[2023-06-16] MEDS: ANASTROZOLE 1 MG TAB PO SCH (07:55)
[2023-06-16] MEDS: CYANOCOBALAMIN (B-12) 500 MCG TABLET PO SCH (07:55)
[2023-06-16] MEDS: AZELASTINE HCL 0.1% NASAL 200 SPRAYS/27,400 MCG BTL SCH (07:55)
[2023-06-16] MEDS: FOLIC ACID 1 MG TAB PO SCH (07:55)
[2023-06-16] MEDS: THIAMINE HCL 50 MG TABLET PO SCH (07:55)
[2023-06-16] MEDS: CETIRIZINE HCL 10 MG TABLET PO SCH (07:55)
[2023-06-16] MEDS: lamoTRIgine 100 MG TAB PO SCH (07:56)
[2023-06-16] MEDS: GABAPENTIN 300 MG CAP PO SCH ×2 (07:56→13:25)
[2023-06-16] MEDS: ARIPiprazole 10 MG TAB PO SCH (07:56)
[2023-06-16] MEDS: ENOXAPARIN INJ 40 MG/0.4 ML SYR SQ SCH (07:56)
[2023-06-16] MEDS: METOPROLOL SUCC 50MG EXT REL TAB PO SCH (08:01)
--- NOTE | 2023-06-16 12:46 | Discharge Summary ---
Date of Service June 16, 2023 Admission HPI Per Admitting Provider Brigid Perla is a 57yo female with history of EtOH abuse, Depression and HLP presenting with EtOH withdrawal. Patient admits to drinking 3 bottles of wine daily - she has been trying to cut back. Today she had one bottle of wine. Last drink was 06/05/23 at 20:00. She started feeling shaky tonight. Has history of complicated withdrawals with hallucinations Was in rehab last Fall. Attends AA on occasion Is on Gabapentin for anxiety Admission Exam Per Admitting Provider General: patient resting comfortably, NAD, non-toxic in appearance, AA&O x 4 Skin: warm, dry, intact, no rashes or lesions HEENT: NC/AT, PERRL, EOMI, anicteric sclera, conjunctiva without injection, external ear normal to inspection and nontender, nares patent, moist mucus membranes, dentition intact, no oropharyngeal lesions, neck supple, trachea midline, no LAD, no thyromegaly, no JVD Heart: +S1/S2, regular, tachycardic, no m/r/g Lungs: equal air entry bilaterally, no rales/rhonchi/wheezes Abd: +BS, soft, NT/ND, no masses/organomegaly/ascites Ext: warm, 2+ pulses in UE/LE bilaterally, no clubbing/cyanosis or edema Neuro: nonfocal, patient AA&O x 4, speech intact, no facial droop, moving all extremities on command with equal strength 5/5 Principal Diagnosis Alcohol Withdrawal Discharge Exam Constitutional WD/WN, vitals as above not in distress Respiratory normal respiratory effort, lungs clear to auscultation Cardiovascular RRR, no murmur, no edema Musculoskeletal no cyanosis or clubbing, extremities motor strength 5/5 Gait: normal gait Skin no rashes, warm and dry Neurologic Nonfocal exam, AOx4, speech intact Discharge Data Allergies Allergy/AdvReac Type Severity Reaction Status Date / Time levothyroxine Allergy Severe facial Verified 05/12/23 17:25 swelling minocycline [From Minocin] Allergy Mild Rash Verified 05/12/23 17:25 Sulfa (Sulfonamide Allergy Unknown PT DOESN'T Verified 05/12/23 17:25 Antibiotics) REMEMBER REACTION Consultations 06/06/23 01:42 ED Decision to Admit Stat 06/06/23 05:43 Consult Cardiology Routine 06/12/23 19:07 Consult Neurology Routine Ordered Studies Labs 06/06/23 06/06/23 06/06/23 00:35 00:35 01:59 WBC RBC Hgb Hct MCV MCH MCHC RDW Std Deviation RDW Coeff of Marybeth Plt Count MPV Immature Gran % (Auto) Neut % (Auto) Lymph % (Auto) [place] % (Auto) Eos % (Auto) Baso % (Auto) Neut # (Auto) Lymph # (Auto) [place] # (Auto) Eos # (Auto) Baso # (Auto) Immature Gran # (Auto) PT INR Sodium 137 Potassium 4.1 Chloride 95 L Carbon Dioxide 20 L Anion Gap 22 H BUN 17 Creatinine 0.87 Est Cr Clr Drug Dosing 80.6 Est GFR ( Amer) 86.9 Est GFR (Non-Af Amer) 75.0 BUN/Creatinine Ratio 19.5 Glucose 122 H Calcium 9.4 Phosphorus 3.4 Magnesium 2.3 Total Bilirubin 0.9 Direct Bilirubin AST 100 H ALT 71 H Alkaline Phosphatase 70 Total Protein 8.4 H Albumin 5.4 H Globulin 3.0 Albumin/Globulin Ratio 1.8 Vitamin B12 Folate Nasal Screen MRSA (PCR) Ethyl Alcohol mg/dL 318.4 H SARS-CoV-2, RNA, NAAT NEGATIVE 06/06/23 06/07/23 06/07/23 Unknown 05:44 05:44 WBC 8.84 RBC 4.40 Hgb 14.2 Hct 41.3 MCV 93.9 MCH 32.3 MCHC 34.4 RDW Std Deviation 44.4 RDW Coeff of Marybeth 12.8 Plt Count 168 MPV 9.2 L Immature Gran % (Auto) Neut % (Auto) Lymph % (Auto) [place] % (Auto) Eos % (Auto) Baso % (Auto) Neut # (Auto) Lymph # (Auto) [place] # (Auto) Eos # (Auto) Baso # (Auto) Immature Gran # (Auto) PT 10.4 INR 0.9 Sodium Potassium Chloride Carbon Dioxide Anion Gap BUN Creatinine Est Cr Clr Drug Dosing Est GFR ( Amer) Est GFR (Non-Af Amer) BUN/Creatinine Ratio Glucose Calcium Phosphorus Magnesium Total Bilirubin Direct Bilirubin AST ALT Alkaline Phosphatase Total Protein Albumin Globulin Albumin/Globulin Ratio Vitamin B12 Folate Nasal Screen MRSA (PCR) Negative Ethyl Alcohol mg/dL SARS-CoV-2, RNA, NAAT 06/07/23 06/09/23 06/09/23 05:44 09:54 09:54 WBC 5.61 RBC 4.15 L Hgb 13.3 Hct 38.1 MCV 91.8 MCH 32.0 MCHC 34.9 RDW Std Deviation 41.5 RDW Coeff of Marybeth 12.4 Plt Count 161 MPV 9.5 Immature Gran % (Auto) 0.4 Neut % (Auto) 67.5 Lymph % (Auto) 15.9 [place] % (Auto) 10.5 Eos % (Auto) 5.2 Baso % (Auto) 0.5 Neut # (Auto) 3.79 Lymph # (Auto) 0.89 L [place] # (Auto) 0.59 Eos # (Auto) 0.29 Baso # (Auto) 0.03 Immature Gran # (Auto) 0.02 PT INR Sodium 139 136 Potassium 4.0 3.5 Chloride 99 100 Carbon Dioxide 24 29 Anion Gap 16 H 7 BUN 23 18 Creatinine 0.89 0.80 Est Cr Clr Drug Dosing 79.2 88.2 Est GFR ( Amer) 84.6 96.2 Est GFR (Non-Af Amer) 73.0 83.0 BUN/Creatinine Ratio 25.8 H 22.5 H Glucose 123 H 172 H Calcium 9.2 9.1 Phosphorus Magnesium Total Bilirubin 1.0 0.7 Direct Bilirubin 0.3 H AST 59 H 51 H ALT 53 H 54 H Alkaline Phosphatase 55 49 Total Protein 7.3 6.6 Albumin 4.6 4.0 Globulin 2.6 Albumin/Globulin Ratio 1.5 Vitamin B12 Folate Nasal Screen MRSA (PCR) Ethyl Alcohol mg/dL SARS-CoV-2, RNA, NAAT 06/09/23 06/10/23 06/11/23 09:54 07:34 06:57 WBC RBC Hgb Hct MCV MCH MCHC RDW Std Deviation RDW Coeff of Marybeth Plt Count MPV Immature Gran % (Auto) Neut % (Auto) Lymph % (Auto) [place] % (Auto) Eos % (Auto) Baso % (Auto) Neut # (Auto) Lymph # (Auto) [place] # (Auto) Eos # (Auto) Baso # (Auto) Immature Gran # (Auto) PT INR Sodium 139 139 Potassium 3.6 3.6 Chloride 101 103 Carbon Dioxide 33 H 31 Anion Gap 5 5 BUN 15 15 Creatinine 0.83 0.82 Est Cr Clr Drug Dosing 82.9 83.9 Est GFR ( Amer) 92.0 93.4 Est GFR (Non-Af Amer) 79.4 80.6 BUN/Creatinine Ratio 18.1 18.3 Glucose 104 H 120 H Calcium 9.2 9.3 Phosphorus Magnesium Total Bilirubin 0.5 0.4 Direct Bilirubin AST 58 H 55 H ALT 63 H 68 H Alkaline Phosphatase 50 43 Total Protein 6.5 6.0 Albumin 3.8 3.6 Globulin 2.7 2.4 L Albumin/Globulin Ratio 1.4 1.5 Vitamin B12 Folate > 22.30 Nasal Screen MRSA (PCR) Ethyl Alcohol mg/dL SARS-CoV-2, RNA, NAAT 06/12/23 06/12/23 06/13/23 05:59 18:06 07:01 WBC RBC Hgb Hct MCV MCH MCHC RDW Std Deviation RDW Coeff of Marybeth Plt Count MPV Immature Gran % (Auto) Neut % (Auto) Lymph % (Auto) [place] % (Auto) Eos % (Auto) Baso % (Auto) Neut # (Auto) Lymph # (Auto) [place] # (Auto) Eos # (Auto) Baso # (Auto) Immature Gran # (Auto) PT INR Sodium 138 138 Potassium 3.7 3.9 Chloride 102 103 Carbon Dioxide 30 28 Anion Gap 6 7 BUN 15 16 Creatinine 0.89 0.92 Est Cr Clr Drug Dosing 77.3 74.8 Est GFR ( Amer) 84.6 81.2 Est GFR (Non-Af Amer) 73.0 70.1 BUN/Creatinine Ratio 16.9 17.4 Glucose 102 H 101 H Calcium 9.3 9.4 Phosphorus Magnesium Total Bilirubin 0.4 0.4 Direct Bilirubin AST 60 H 58 H ALT 76 H 77 H Alkaline Phosphatase 51 50 Total Protein 6.2 6.2 Albumin 3.7 3.7 Globulin 2.5 2.5 Albumin/Globulin Ratio 1.5 1.5 Vitamin B12 648 Folate Nasal Screen MRSA (PCR) Ethyl Alcohol mg/dL SARS-CoV-2, RNA, NAAT 06/14/23 06/15/23 07:07 07:24 WBC RBC Hgb Hct MCV MCH MCHC RDW Std Deviation RDW Coeff of Marybeth Plt Count MPV Immature Gran % (Auto) Neut % (Auto) Lymph % (Auto) [place] % (Auto) Eos % (Auto) Baso % (Auto) Neut # (Auto) Lymph # (Auto) [place] # (Auto) Eos # (Auto) Baso # (Auto) Immature Gran # (Auto) PT INR Sodium 138 137 Potassium 4.1 4.1 Chloride 106 104 Carbon Dioxide 26 27 Anion Gap 6 6 BUN 16 18 Creatinine 0.92 0.93 Est Cr Clr Drug Dosing 74.8 74.0 Est GFR ( Amer) 81.2 80.2 Est GFR (Non-Af Amer) 70.1 69.2 BUN/Creatinine Ratio 17.4 19.4 Glucose 101 H 99 Calcium 9.3 9.2 Phosphorus Magnesium Total Bilirubin 0.4 0.3 Direct Bilirubin AST 54 H 42 H ALT 75 H 67 H Alkaline Phosphatase 50 49 Total Protein 6.3 6.2 Albumin 3.8 3.8 Globulin 2.5 2.4 L Albumin/Globulin Ratio 1.5 1.6 Vitamin B12 Folate Nasal Screen MRSA (PCR) Ethyl Alcohol mg/dL SARS-CoV-2, RNA, NAAT Hospital Course (1) Alcohol withdrawal: 57 y/o female with Alcohol use disorder admitted for alcohol withdrawal EtOH Withdrawal -EtOH level on admission 318.4 -Patient was kept on AWSS protocol. Completed librium taper. Received MVI - Persistent tremulousness likely from underlying anxiety, given prn Lorazepam during hospitalization - Discharging on longer Librium taper Severe AUD -IOP reached out to patient, Patient will reach them regarding start date. - PCP follow up 06/24/23 @10:45 w/ Uli Dash @ [facility] - Script for Antabuse on discharge Transaminitis - Sec to Alcohol use. LFTs were close to normal. to recheck at PCP f//u visit. #Gait disturbance - Tremulousness from AUD likely contributing to gait disturbance. Evaluated by neurology and agrees with impression. - Gait steady at the time of discharge. - Patient discharged with script for walker and shower chair #paroxysmal atrial fibrillation/SVT in the setting of alcohol withdrawal, aberrant conduction with faster heart rates - Given adenosine and metoprolol - Resolved, pt self-converted to normal sinus rhythm around 0900 on 06/06/23 - Cardiology consulted - recommend continued alc withdrawal management - To consider echocardiogram - to be addressed as outpatient. - Home Metoprolol continued. - Consider Event monitor as outpatient. #Episodes of fecal incontinence at night - Possibly sec to PPI side effect. No focal neurological deficit. - Advised to cut Protonix dose to once a day - On PPI since EGD on 05/12 for foreign body aspiration - noted to have moderate esophagitis. (Recommended to have repeat in 4wks) - GI team notified. #Bipolar I - Lamictal continued during hospitalization - Trazodone continued during hospitalization - gabapentin continued during hospitalization - Abilify continued during hospitalization (2) Supraventricular tachycardia: (3) Bipolar 1 disorder: (4) Alcohol dependence: Total Time Total Time Spent Total Time Spent (In Minutes): See attending attestation Discharge Plan Discharge Items Patient Disposition: Home - Self-Care Reason For Visit: ETOH WITHDRAWAL Discharge Diagnosis: Alcohol Use Disorder Condition on Discharge: Good Goals: - Begin IOP treatment at the [facility] - Follow up with outpatient psychiatry - Follow up with outpatient GI Activity: Resume your previous activity Bathing: No limitations Sexual Activity: When tolerated Exercise/Sports: None Driving/Machine Use: No limitations Weightbearing: Full weightbearing Non-emergency contact: Primary Care Provider Call non-emergency contact if: you have any medication questions Follow-up/Referrals: Luís Dash DO [Resident] - 06/24/23 10:45 am Diet: Regular Addtl Attending Provider Instructions: You were admitted due to acute alcohol withdrawal in the setting of alcohol use disorder. During your hospitalization, we gave you a course of medication to ease the withdrawal symptoms. Now that you have been stabilized and are no longer in acute withdrawal, I recommend the following: - Start IOP treatment at [facility] as discussed - Start Antabuse 250 mg PO daily - Follow up with outpatient psychiatry Pending Studies at Discharge: No Stand-Alone Forms: [facility] [email or web address], Work/School Release Medications and DC Order Prescriptions: New disulfiram 250 mg tablet 250 mg PO DAILY Qty: 30 3RF Continued azelastine 137 mcg (0.1 %) aerosol,spray 1 spray intranasal QAM Rx Instructions: administer into each nostril melatonin 5 mg tablet 5 mg PO HS PRN (Reason: Insomnia) lamotrigine 200 mg tablet 200 mg PO DAILY trazodone 100 mg tablet 100 mg PO HS gabapentin 300 mg capsule 300 mg PO TID albuterol sulfate 90 mcg/actuation HFA aerosol inhaler 1 - 2 puff INHALATION Q6H PRN (Reason: SOB or wheezing) aripiprazole 10 mg tablet 10 mg PO QAM aripiprazole 5 mg tablet 5 mg PO HS atorvastatin 20 mg Tablet 20 mg PO HS cetirizine [Zyrtec] 10 mg Tablet 10 mg PO QAM fluticasone propionate 50 mcg/actuation [place],Suspension 1 spray INTRANASAL HS thiamine HCl (vitamin B1) 100 mg Tablet 100 mg PO QAM Qty: 30 0RF Patient Comments: unable to obtain from pharmacy Rx Instructions: OTC anastrozole 1 mg tablet 1 mg PO QAM metoprolol succinate 50 mg tablet extended release 24 hr 50 mg PO QAM Patient Comments: pt. reporting she has only been taking 25mg BID rather than 50mg. states that she breaks the 50mg tabs in half. Changed pantoprazole 40 mg tablet,delayed release (DR/EC) 40 mg PO QAM Qty: 60 5RF Discharge Orders: Discharge Order (Routine); Ordered 06/16/23 Ordered By: Jake Mora/Other Patient Handouts: Alcohol Addiction, Alcoholism Resources, Alcohol Withdrawal: What to Expect Admission Data Admit Date/Time: 06/06/23 02:14 Attending Provider: Beatriz Smart Admit Provider: Aditi Rollins Primary Care Provider: Latoya Valerio Other Providers: Aditi Rollins ; Jamir Parish ; Jose Dao ; Praish Masterson Other Interventions: Discharge Summary Assessment (RN) Last Done: 06/16/23 15:27 Supervising Physician Co-Signing Physician Notes Resident Physician Supervision Note: I independently interviewed and examined the patient and verified the levy history and physical, reviewed labs and image studies and agree with resident findings and care plan. Resident Activity Tracking Resident Involvement: Resident Care Provided Care Provided: Adult Hospital Medicine
[2023-06-16 15:25] VITALS: TEMP 97.7
[2023-06-16 15:30] VITALS: BP 121/81; PULSE 65
--- NOTE | 2023-06-18 16:31 | Communication Note ---
Date of Service: June 18, 2023 Patient having worsening of tremors. PCP appointment not until next week. Has not been drinking alcohol. Sending prescription of librium with slow taper. Further evaluation by pcp regarding anxiety management contributing to tremors.
== END 2023-06-16 16:23 | disposition home or self-care (01) | DRG 897 ==
LOC: ED 23:43 → 1E 06-06 02:14 → SUATTDRO 06-06 02:14 → 1E 06-06 03:37 → 2S 06-08 22:15 → 3N 06-10 23:30

== ENCOUNTER 2024-01-03 13:35 | Inpatient (IN) ==
--- OUTSIDE RECORDS SUMMARY | 2024-01-03 13:39 | External Medical Summary | Summary of Care ---
Author Name Unknown Organization [facility] Address [address] [place] [address] Phone [phone] Care Team Providers Care Automotive Sales Manager Name Role Phone Kanika Waltonth DO Primary Care Provi apolonia Reason for Visit * Auth/Cert Specialty Diagnoses / Procedures Referred By Piper ren Referred To Contact Diagnoses Postmenopausal bleeding Postmenopausal bleeding [N95.0] Procedures HYSTEROSCOPY W/BIOPSY AND/OR POLYPECTOMY W/WO D&C PELVIC EXAM UNDER ANESTHESIA, NOT LOCAL HYSTEROSCOPY WITH BIOPSY AND/OR POLYPECTOMY WITH OR WITHOUT D&C PELVIC EXAMINATION UNDER ANESTHESIA Referral ID Status Reason Start Date Expiration Date Visits Re quested Visits Authorized [id number] Encounter Details Date Type Department Care Team (Latest Contact Info) Description 12/31/2023 12:45 PM EST - 12/31/2023 4:29 PM EST Hospital Encounter [facility], Operating Room [facility] [address] [place] [id number] Guy Rosario MD [address] [place] [id number] Discharge Disposition: Home - Self Care Allergies Active Allergy Reactions Criticality Noted Date Comments Levothyroxine Edema face/lips/tongue High 06/20/2020 Edema to lips only per pt Minocycline Hcl Rash 08/13/2010 Alcohol 01/22/2023 Reaction with medication Sulfa Antibiotics 06/02/2001 Pt does not remember. Reacted as a child documented as of this encounter (statuses as of 01/01/2024) Medications Medication Sig Dispensed Refills Start Date End Date Status gabapentin (NEURONTIN) 100 MG Capsule 4 times a day as needed for Anxiety. 0 03/20/2017 Active Disulfiram 250 MG Oral Tablet Take by mouth daily. 0 Active Albuterol Sulfate (TO GO ALBUTEROL HFA) IN puff Inhale 1 Puff by mouth every 4 hours as needed for Wheezing. 0 Active Cetirizine HCl 10 MG Oral Tablet 1 Tablet. 0 02/03/2022 Active Omeprazole 20 MG Oral Capsule Delayed Release (PriLOSEC) Take 1 Capsule by mouth in the morning. 0 Active traZODone HCl 100 MG Oral Tablet (Desyrel) Take 1.5 Tablets by mouth at bedtime. 0 Active medroxyPROGESTERone Acetate 10 MG Oral Tablet (Provera) Take two tablets by mouth twice daily 120 Tablet 6 12/15/2022 Active Fluticasone Propionate 50 MCG/ACT Nasal Suspension Administer 2 Sprays into nostril in the morning and 2 Sprays in the evening. 0 Active Azelastine HCl 0.1 % Nasal Solution Administer 1 [place] into nostril in the morning and 1 [place] before bedtime. 0 Active Ibuprofen 600 MG Oral Tablet (Motrin) Take 1 Tablet by mouth every 6 hours as needed (pain, mild). With meals. 30 Tablet 0 01/22/2023 Active Acetaminophen 325 MG Oral Tablet (Tylenol) Take 2 Tablets by mouth every 6 hours as needed for Pain, Mild. 60 Tablet 0 01/22/2023 Active Pantoprazole Sodium 40 MG Oral Tablet Delayed Release (Protonix) Take 1 Tablet by mouth in the morning. Takes at night . 0 Active Vivitrol 380 MG Intramuscular Suspension Reconstituted (naltrexone depot) Inject into a large muscle once. 0 Active Pseudoephedrine HCl ER 120 MG Oral Tablet Extended Release 12 Hour Take 1 Tablet by mouth in the morning and 1 Tablet before bedtime. 0 Active Melatonin 5 MG Oral Capsule 1 Capsule. 0 11/13/2021 Active Anastrozole 1 MG Oral Tablet (Arimidex)Indication s:Ductal carcinoma in situ (DCIS) of left breast Take 1 Tablet by mouth in the morning. 90 Tablet 3 04/19/2023 Active B Complex Vitamins Oral Capsule Take 1 Capsule by mouth in the morning. 0 06/23/2023 Active Benztropine Mesylate 1 MG Oral Tablet (Cogentin) Take 1 Tablet by mouth in the morning and 1 Tablet before bedtime. 0 09/11/2023 Active Folic Acid 400 MCG Oral Tablet Take 1 Tablet by mouth in the morning. 0 08/11/2023 Active Propranolol HCl 10 MG Oral Tablet (Inderal) Take 1 Tablet by mouth in the morning and 1 Tablet at noon and 1 Tablet in the evening and 1 Tablet before bedtime. 0 09/11/2023 Active Atorvastatin Calcium 20 MG Oral Tablet (Lipitor) Take 1 Tablet by mouth in the morning. Takes in the evening . 0 07/06/2023 Active lamoTRIgine 100 MG Oral Tablet (LaMICtal) Take 1 Tablet by mouth in the morning. 0 08/18/2023 Active lamoTRIgine 200 MG Oral Tablet (LaMICtal) Take 0.5 Tablets by mouth in the morning. In the evening . 0 09/12/2023 Active medroxyPROGESTERone Acetate 10 MG Oral Tablet (Provera) Take 1 Tablet by mouth in the morning and 1 Tablet at noon and 1 Tablet in the evening and 1 Tablet before bedtime. 120 Tablet 3 10/07/2023 Active Ibuprofen 600 MG Oral Tablet (Motrin) Take 1 Tablet by mouth in the morning and 1 Tablet at noon and 1 Tablet before bedtime. With meals.. 30 Tablet 0 12/31/2023 Active documented as of this encounter (statuses as of 01/01/2024) Active Problems Problem Noted Date Diagnosed Date DCIS (ductal carcinoma in situ) 02/28/2020 Severe episode of recurrent major depressive disorder, without psychotic features 01/20/2020 Alcohol dependence with withdrawal, uncomplicate d 01/20/2020 PSVT (paroxysmal supraventricular tachycardia) 0 06/05/2014 Dyslipidemia, goal LDL below 130 06/05/2014 Sleep apnea 02/06/2006 ADVANCE DIRECTIVE INFORMATION 11/03/2005 Overview: No, Advance Directive brochure given to patient. Rosacea 04/07/2003 COMMON MIGRAINE WITHOUT MENTION OF INTRACTABLE M IGRAINE 04/07/2003 Major depressive disorder 04/07/2003 Overview: ICD-10 update of inactive term Insomnia 04/07/2003 Overview: ICD-10 update of inactive term Mild intermittent asthma without complication documented as of this encounter (statuses as of 01/01/2024) Resolved Problems Problem Noted Date Diagnosed Date Resolved Date CHOLELITH W AC CHOLECYST 02/22/2004 documented as of this encounter (statuses as of 01/01/2024) Immunizations Name Administration Dates Next Due COVID-19 mRNA, LNP-s, No Pre serve, 2-Dose Series (Moderna) 01/24/2021,12/27/2020 COVID-19 mRNA, LNP-s, No Pre serve, 2-Dose Series (Pfizer) 09/16/2021 Pneumococcal Polysaccharide PPV23 (Pneumovax) 03/20/2017 Seasonal Influenza, PF, 6 M & above, IM , (FluLaval or Fluzone) 08/28/2023,09/19/2020,11/06/2019,11/30 Seasonal Influenza, Quadriva lent, No Preserve, IM 10/07/2021 Seasonal Influenza, Split, I IV3, With Preserve, Inj 12/14/2014,09/06/2013,07/17/2012,08/14 TDAP (age 10 and older)(Boostrix) 06/06/2021 TDAP (age 11 and older)(Adacel) 12/20/2010 Zoster Vaccine Recombinant (Shingrix) 04/26/2020 ,01/20/2020 documented as of this encounter Social History Tobacco Use Types Packs/Day Years Used Date Smoking Tobacco: Never Smokeless Tobacco: Never Alcohol Use Standard Drinks/Week Comments No 8.3 (1 standard drin k = 0.6 oz pure alcohol) none currrently, rehab 02/2015, current rehab PHQ-2 Answer Date Recorded PHQ-2 Score 3 06/20/2020 Sex and Gender Information Value Date Recorded Sex Assigned at Not on file Gender Identity Not on file Sexual Orientation Not on file Job Start Date Occupation Industry Not on file Not on file Not on file documented as of this encounter Last Filed Vital Signs Vital Sign Reading Time Taken Comments Blood Pressure 133/83 12/31/2023 4:20 PM EST Pulse 80 12/31/2023 4:20 PM EST Temperature 36.1 C (97 F) 12/31/2023 3:31 PM EST Respiratory Rate 16 12/31/2023 4:20 PM EST Oxygen Saturation 100% 12/31/2023 4:20 PM EST Inhaled Oxygen Concentration - - Weight 79.4 kg (175 lb) 12/31/2023 1:23 PM EST Height 167.6 cm (5' 6") 12/31/2023 1:23 PM EST Body Mass Index 28.25 12/31/2023 1:23 PM EST documented in this encounter Discharge Summaries * Guy Rosario MD - 12/31/2023 3:32 PM EST [facility] [address] [place] [address] OUTPATIENT SURGERY DISCHARGE SUMMARY NOTE Name: Brigid Perla Location: OR [facility]/OR Date: 12/31/2023 Time: 3:33 PM Surgery Date: 12/31/2023 Procedure: Procedure(s): HYSTEROSCOPY WITH BIOPSY AND/OR POLYPECTOMY WITH OR WITHOUT D&C PELVIC EXAMINATION UNDER ANESTHESIA No laterality found for procedure #1 Bilateral Surgeon: Surgeon(s): Guy Rosario MD Davis, Lori Ann, PA-C Discharge Diagnosis: postop After examination of this patient, I have determined she is ready for discharge to home when the patient meets criteria. Discharge instructions were given to the patient. documented in this encounter Discharge Instructions * Discharge Instr - AVS* Guy Rosario MD - 12/31/2023 3:32 PM EST Discharge Date: 12/31/2023 The information below provides you with the instructions and the list of medications you need to betaking following discharge from the hospital. If you have any questions, please ask before leaving.Please carry this letter with you when you see your doctor in the clinic. If you have questions, you can reach us at the numbers above. Post Anesthesia Instructions: 1. Do not drive today. 2. Resume driving when surgeon permits. 3. Do not make important decisions or sign legal documents today. 4. Call surgeon for: Temperature evaluation greater than 101 degrees Uncontrollable pain Excessive Bleeding Persistent Nausea and vomiting Medication intolerance (nausea, vomiting, or rash) 5. For nausea and vomiting use only clear liquids such as: tea, soda, bouillon until nausea subsides, then gradually increase diet as tolerated. 6. If you have any concerns or questions, call your surgeon's office at [phone] . If the physician is unavailable and it is an emergency, call 911 or go to the nearest emergency room. Preprinted instructions given: None (Form No.) Special Care / Other: DISCOMFORT: Vaginal bleeding (less than a period) for 7 - 10 days is common. Cramping may occur in lower abdomen and may be relieved by pain medication advised by your doctor. Sore throat is common and results from method of administering anesthesia; usually disappears within 24 hours. Menstruation - first menstrual flow may be scanty, may be heavy and contain clots or may stop and start again. The second period should be normal. Sexual activity permitted when bleeding stops. CONTRACEPTION: Check with your doctor for advice if you plan to become within the next 3 - 4 months. Your doctor will discuss your choice, if any, of contraceptives at your follow- up visit. HYGIENE: Bathing - may shower or tub bathe at any time. Douching - do not douche until 2 weeks after surgery or until no further bleeding or cramping. SIGNS OF INFECTION: Elevated temperature - 101oF or above by mouth. Vaginal drainage. Unusual pain or burning. Activity : Rest today. Return to School or Work: Limitations 2 dyas Diet: Resume previous diet Follow-up Visit with: dr rosario When: in 2 weeks Discharged To: Home documented in this encounter H&P Notes * Guy Rosario MD - 12/31/2023 2:33 PM EST Context: (HPI) 58 year old status post breast cancer and was treated on with tamoxifen too much 02/09/2023 where she underwent D&C hysteroscopy by Dr. Donte houser for postmenopausal bleeding. Patient did well after D&C never had any bleeding until August 2023 when she had another episode of heavy bleeding. Pelvic ultrasound done on 11 12/12/2022 showed thickened endometrium. 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 Denies h/o STDs and abnormal Paps. Her past medical/surgical histories and current medications are recorded in the electronic record. Past Surgical History Past Surgical History: Procedure Laterality Date ANAL TAG REMOVAL, EXTERNAL, SINGLE N/A 05/07/2016 ANAL PAPILLECTOMY SINGLE SKIN TAG performed by Ruben Escalante MD at [facility] ANORECTAL EXAM ,DIAG, REQUIRING ANESTHESIA N/A 05/07/2016 ANORECTAL EXAM UNDER ANESTHESIA performed by Ruben Escalante MD at [facility] BREAST BIOPSY Right 02/08/2020 DCIS BREAST BIOPSY Left 11/30/2019 DCIS BREAST LESION,OTHER,EXCISION Bilateral 03/28/2020 EXCISION OF CYST OR TUMOR BREAST performed by Jacqui Kenyon MD at OR [facility] COLONOSCOPY, DIAGNOSTIC (RECTUM) N/A 05/01/2016 COLONOSCOPY FLEXIBLE PROXIMAL DIAGNOSTIC performed by Ruben Escalante MD [place] [facility] [place], FLEXIBLE, DIAGNOSTIC 01/09/2021 food bolus removed / INPT [facility] EGD, W/ENDOSCOPIC US 07/04/09 done no choledocholithiasis no massesin pancreas, bilious gastric fluid, mild gastritis, prominent fold distal GEJ medium sized hiatal hernia EXC BREAST LESION RADMARK Right 02/15/2020 EXCISION OF BREAST LESION RADIOLOGICAL MARKER performed by Jacqui Kenyon MD at [facility] EXC BREAST LESION RADMARK Right 01/02/2021 EXCISION OF BREAST LESION RADIOLOGICAL MARKER performed by Jacqui Kenyon MD at [facility] HYSTEROSCOPY W/BIOPSY AND/OR POLYPECTOMY W/WO D&C Bilateral 01/22/2023 HYSTEROSCOPY WITH BIOPSY AND/OR POLYPECTOMY WITH OR WITHOUT D&C performed by Deedee Kent MD at [facility] LAPAROSCOPY; CHOLECYSTECTOMY 02/23/2004 Cholecystectomy, Laproscopic Dr Kellogg [facility] MASTECTOMY, PARTIAL Left 02/15/2020 MASTECTOMY PARTIAL performed by Jacqui Kenyon MD at [facility] NONE 1986 maxillofacial osteotomy NONE 2003 D & E at [facility] RADIATION THERAPY 04/2020 RADIATION THERAPY MANAGEMENT 04/2020 US GUIDED BREAST BIOPSY RIGHT Right 12/10/2020 Complex Fibroadenoma US GUIDED BREAST BIOPSY RIGHT 12/26/2020 jabari loss prevention and safety manager placement Family History Problem Relation Age of Onset Breast Cancer Mother metatastic breast cancer Alcohol and Other Disorders Associated Mother Diabetes Father Heart Disorder Father ME's x 2 in his late 40's, s/p CABG Allergies Father Arthritis Father Ear Problems Father partially deaf Hypertension Father Neurological Disorder Father meningioma, frontal lobe syndrome Thyroid Disorder Father Fibromyalgia Sister Irritable Bowel Syndrome Sister Other (hashimotos thyroiditis) Sister Dementia Brother Alcohol and Other Disorders Associated Brother Stroke Grandmother (Maternal) at age 60 Hypertension Grandmother (Maternal) Colon cancer Grandfather (Maternal) 65 cause of Diabetes Grandmother (Paternal) Heart Disorder Grandmother (Paternal) No Past Hx Son pulm htn in infancy, good now No Past Hx Son umbilical hernia, adopted son Breast Cancer Aunt (Paternal) post menopausal Breast Cancer Aunt (Paternal) post menopausal Breast Cancer Aunt (Paternal) Ovarian cancer No significant family history no PHILOSOPHY FACULTY cancer History Social History Socioeconomic History Marital status: Spouse name: Not on file Number of children: Not on file Years of education: Not on file Highest education level: Not on file Occupational History 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 Tobacco Use Smoking status: Never Smokeless tobacco: Never Vaping Use Vaping Use: Never used Substance and Sexual Activity Alcohol use: No Alcohol/week: 8.3 standard drinks of alcohol Types: 10 5 oz of wine per week Comment: none jed, rehab 02/2015, current rehab Drug use: No Sexual activity: Not Currently Other Topics Concern Service Not Asked Blood Transfusions Not Asked Caffeine Concern Not Asked Occupational Exposure Not Asked Hobby Hazards Not Asked Sleep Concern Not Asked Stress Concern Not Asked Weight Concern Not Asked Special Diet Yes Comment: healthy eating habits, calcium intake Back Care Not Asked Exercise Yes Comment: walking Bike Helmet Not Asked Seat Belt Yes Self-Exams Yes Comment: breast Social 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 Regular rate and Rhythm Lungs: Clear to auscultation bilaterally. Abdomen: Soft Extremities: Soft non tender calves bilaterally. A/P: 58 year old year old S/P Breast cancer Thickened endometrium on sonogram We have discussed the risk alternatives and complications of surgery including more surgery to correct complication,risk of anesthesia,infection,damage to internal organs and . We have also discussed the possibility that pt's present situation may not change. Pt is aware and wishes to proceed to surgery. Consent is signed documented in this encounter Nursing Notes * Jacqueline Jimenez RN - 12/31/2023 4:29 PM EST Vs stable. Reports pain at 2/10 on pain scale, tolerable. Denies nausea and tolerating PO intake. Dressing dry and intact. Verbalized understanding of all discharge directions. Patient stable for discharge to home. D/c criteria met. Verbalized readiness for discharge to home. Ambulated to private auto with staff presence to care of drivers' cash clerk. * Jacqueline Jimenez RN - 12/31/2023 3:57 PM EST Pt awake and alert, reports "tolerable" abd cramping, denies nausea. Pt tolerates po fluids and crackers. Pt with scant amt vag bleeding noted to mariann pad. * Jacqueline Jimenez RN - 12/31/2023 3:51 PM EST Pt awake and alert, c/o tolerable cramping to abd. * Jacqueline Jimenez RN - 12/31/2023 3:31 PM EST Pt received from OR, report received from MEDICAL INFORMATION OFFICER and VS reviewed. Pt arousable to name, no c/o pain or nausea. Pt with no vag bleeding noted. * Fadia Estes RN - 12/31/2023 12:58 PM EST Surgical consent verified with patient. Patient agrees with listed procedure and verified signature. documented in this encounter OR Notes * OR Surgeon - Guy Rosario MD - 12/31/2023 3:33 PM EST OPERATIVE RECORD OR [facility], Operating Room [facility] [address] [facility] [place] [phone] Brigid Perla : 1965 DATE: 12/31/2023 PREOPERATIVE DIAGNOSIS: 1. History of breast cancer status post tamoxifen treatment.2. Thickened endometrium Seen on ultrasound. POSTOPERATIVE DIAGNOSIS: Same SURGEON: Guy Rosario MD ASSISTANTS: Susan Graham physician chemist assistant. Attestation for chemist assistant. Preventive Medicine Physician was necessary to help with retraction and manipulation of instruments in order to provide for safe surgery. ANESTHESIA: general anesthesia OPERATION: 1. Exam under anesthesia 2. Dilation and curettage 3. Hysteroscopy FINDINGS: atrophic vulva vagina. No lesions seen in the vulva cervix appeared grossly normal hysteroscopic findings showed atrophic endometrium. Both ostia seen No Lesions, polyps or masses seen in endometrial cavity. ESTIMATED BLOOD LOSS: 5 milliliters DRAINS: none FLUIDS: 600 mL Crystalloid URINE OUTPUT: 300 SPECIMEN: sharp endometrial curettings COMPLICATIONS: none CONDITION: stable in recovery room INDICATIONS AND HISTORY: thickened endometrium seen on ultrasound patient is status post breast cancer and wants on tamoxifen for treatment. DESCRIPTION OF OPERATION: The patient was identified, and the procedure was verified. ky DESCRIPTION OF OPERATION: Patient is taken to the operating room was she was prepped and draped in normal sterile fashion in dorsal lithotomy position. Exam under anesthesia is as dictated above. Bladder is catheterized and 100 cubic centimeters of clear urine is obtained. Single-tooth tenaculum was used to grab the cervix. Weighted speculum was placed in the vagina. Cervix is dilated in series. Operative hysteroscope was placed into the uterine cavity. Findings of the uterus as dictated above.. It was removed and a size 2 sharp curette introduced in the uterine cavity. Curettage was performed in all 4 quadrants until a gritty texture is obtained. Both specimens sent to pathology for patholo gic analysis. All instruments removed from the uterus and the vagina and accounted for x2 including sponges needles and retractors. There was good hemostasis. The patient is sent to recovery in stable condition. Guy Rosario MD 12/31/2023 3:33 PM documented in this encounter Plan of Treatment Upcoming Encounters Date Type Department Care Team (Late st Contact Info) Description 01/20/2024 4:15 PM EST Office Visit Gynecology/Obstetrics [facility] [address] [address] [place] [phone] Guy Rosario MD [address] [place] [phone] Pending Results Name Type Priority Associated Diagnoses Date /Time SURGICAL PATHOLOGY Pathology Routine Postmenopausal bleeding 12/31/2023 3:14 PM EST Scheduled Orders Name Type Priority Associated Diagnoses Orde r Schedule SURGICAL PATHOLOGY Pathology Routine Postmenopausal bleeding Release Upon Ordering for 1 Occurrences starting 12/31/2023, 1 completed Scheduled Procedures Name Priority Associated Diagnoses Date/Ti me COLONOSCOPY FLEXIBLE PROXIMA L DIAGNOSTIC Recall Special screening for malignant neoplasms, colon Health Maintenance Due Date Last Done Comments Hepatitis B (1 of 3 - 3-dose series) 1965 HPV/Co-Test 1997 Cologuard 2012 Fecal Occult Blood Test 2012 Sigmoidoscopy 2012 Pneumococcal Vaccine: Pediatrics (0 to 5 Years) and At-Risk Patients (6 to 64 Years) (2 - PCV) 03/20/2018 03/20/2017 Depression Screening 06/20/2021 06/20/2020 *SPIROMETRY ONCE FOR ASTHMA-ADULT 10/16/2022 COVID-19 Vaccine ( season) 2023 09/16/2021, 01/24/2021, 12/27/2020 Mammogram 04/16/2024 04/16/2023, 10/23, 12/20/2020, Additional history exists Cervical Cancer Screening 02/06/2025 Pap Smear 02/06/2025 02/06/2022, 110 04/2019, 09/28/2019, Additional history exists Colonoscopy 05/01/2026 05/01/2016, 0 07/2016, 11/26/2005 Colorectal Cancer Screening 05/01/2026 Diabetes Screening 10/27/2026 10/27/2023, 0 12/18/2021, 12/20/2020, Additional history exists DTaP,Tdap,and Td Vaccines (3 - Td or Tdap) 06/06/2031 06/06/2021, 12/20/2010 Zoster Vaccines Completed 04/26/2020, 01/20/2020 Influenza Vaccine (FLU shot) Completed 04/2023, 10/07/2021, 09/19/2020, Additional history exists GARDASIL-HPV IMMUNIZATION SERIES Aged Out No longer eligible based on patient's age to complete this topic MENINGOCOCCAL (MENACTRA/MENVEO) Aged Out No longer eligible based on patient's age to complete this topic documented as of this encounter Medical Devices Not on filedocumented as of this encounter Visit Diagnoses Diagnosis Postmenopausal bleeding documented in this encounter Administered Medications Inactive Administered Medications - up to 3 most recent administrations Medication Order MAR Action Action Date Dose Rate Site dexAMETHasone Sodium Phosphate (Decadron) 4 MG/ML inj 4 mg 4 mg, IV Push, PRN Nausea, Starting on Ilsa 12/31/23 at 1540, Until Ilsa 12/31/23 at 2028, For 1 dose, PROTECT FROM LIGHT, PACU fentaNYL (PF) inj 25 mcg 25 mcg, IV Push, PRN Pain, Severe, Starting on Ilsa 12/31/23 at 1540, Until Ilsa 12/31/23 at 2028, For 6 doses, When given IV Push its recommended that the dose be given over 3 to 5 minutes., PACU isolyte-S pH 7.4 infusion Intravenous, Plasma-LYTE 148, isolyte-S, and isolyte-S pH 7.4 are considered equivalent - including for MAR barcode scanning., CONTINUOUS, Starting on Ilsa 12/31/23 at 1330, Until Ilsa 12/31/23 at 2028, Pre-Op Continue from Pre-Op 12/31/2023 2:50 PM EST 100 mL/hr New Bag 12/31/2023 1:34 PM EST 1,000 mL 100 mL/hr ondansetron (Zofran) inj 4 mg 4 mg, IV Push, PRN Nausea, Starting on Ilsa 12/31/23 at 1540, Until Ilsa 12/31/23 at 2028, For 1 dose, PACU oxygen GAS Inhalation, OXYGEN, First dose on Ilsa 12/31/23 at 1615, Until Discontinued, Device/Managed by: Low Flow Device, Goal SPO2 (%): 91-95, Starting Device: Simple Mask, Initial Flow Rate (LPM): 6, Lowest Support: Nasal Cannula: Flow 0-6 LPM. Titrate up/down by 1 LPM., Titration Interval: Q2 minutes and as needed., Notify Provider: For sudden DECREASE in resting SPO2 to less than 85% and when escalating delivery device., PACU I - Oxygen for saturation below 95% as indicated per anesthesia. PACU I - Discontinue oxygen when patient is responsive and oxygen saturation is maintained above 94% on room air or same as preanesthetic level. documented in this encounter Active and Recently Administered Medications Times are shown in EST. Scheduled Medication Order 12/29/2023 12/30/2023 12/31/2023 oxygen GAS Inhalation, OXYGEN, First dose on Ilsa 12/31/23 at 1615, Until Discontinued, Device/Managed by: Low Flow Device, Goal SPO2 (%): 91-95, Starting Device: Simple Mask, Initial Flow Rate (LPM): 6, Lowest Support: Nasal Cannula: Flow 0-6 LPM. Titrate up/down by 1 LPM., Titration Interval: Q2 minutes and as needed., Notify Provider: For sudden DECREASE in resting SPO2 to less than 85% and when escalating delivery device., PACU I - Oxygen for saturation below 95% as indicated per anesthesia. PACU I - Discontinue oxygen when patient is responsive and oxygen saturation is maintained above 94% on room air or same as preanesthetic level. 1615 (Due) Continuous Medication Order 12/29/2023 12/30/2023 12/31/2023 isolyte-S pH 7.4 infusion Intravenous, Plasma-LYTE 148, isolyte-S, and isolyte-S pH 7.4 are considered equivalent - including for MAR barcode scanning., CONTINUOUS, Starting on Ilsa 12/31/23 at 1330, Until Ilsa 12/31/23 at 2028, Pre-Op 1334 (New Bag - Prov ider: Fadia Estes RN)1450 (Continue from Pre-Op - Provider: Jaz Olguin CRNA)1533 (Anes Intra-Op Fluid - Provider: Jaz Olguin CRNA) PRN Medication Order 12/29/2023 12/30/2023 12/31/2023 dexAMETHasone Sodium Phosphate (Decadron) 4 MG/ML inj 4 mg 4 mg, IV Push, PRN Nausea, Starting on Ilsa 12/31/23 at 1540, Until Ilsa 12/31/23 at 2028, For 1 dose, PROTECT FROM LIGHT, PACU fentaNYL (PF) inj 25 mcg 25 mcg, IV Push, PRN Pain, Severe, Starting on Ilsa 12/31/23 at 1540, Until Ilsa 12/31/23 at 2028, For 6 doses, When given IV Push its recommended that the dose be given over 3 to 5 minutes., PACU ondansetron (Zofran) inj 4 mg 4 mg, IV Push, PRN Nausea, Starting on Ilsa 12/31/23 at 1540, Until Ilsa 12/31/23 at 2029, For 1 dose, PACU silver nitrate applicator (CANCELED) ONCE PRN INTRA PROCEDURE, Starting on Ilsa 12/31/23 at 1516, Until Ilsa 12/31/23 at 1518, Intra-Op 1516 (Given - Provid er: Guy Rosario MD - Comment: pelvic) sodium chloride IR 0.9 % irrigation (CANCELED) ONCE PRN INTRA PROCEDURE, Starting on Ilsa 12/31/23 at 1502, Until Ilsa 12/31/23 at 1518, Intra-Op 1510 (Given - Provid er: Guy Rosario MD - Comment: hystoroscopy) documented in this encounter Advance Directives Latest Code Status on File Code Status Date Activated Date Inactivated Comments Full Code 05/07/2016 7:51 AM 05/07/2016 2:51 PM . Care Teams Automotive Sales Manager Relationship Specialty Start Date End Date Kanika Walton DO [address] [facility] [place] [address] PCP - General Family Medicine 12/31/23 documented as of this encounter
--- OUTSIDE RECORDS SUMMARY | 2024-01-03 13:39 | External Medical Summary | Continuity of Care Document ---
Author Name Unknown Organization [facility] [id number] [place] [address] [phone] Care Team Providers Care Sinter Press Operator Name Role Phone Luís Dash Primary Care Physician [phone] Encounter [facility]GEL [id number] Date(s): 12/08/23 - 12/08/23 [facility] [address] Medical [facility] [address] [address] [place] [phone] Encounter Diagnosis Alcohol use disorder, severe, in early remission(Discharge Diagnosis) - 12/09/23 Bipolar disorder(Discharge Diagnosis) - 12/09/23 Breast CA(Discharge Diagnosis) - 12/09/23 Discharge Disposition: Home or Self Care Attending Physician: DO Walton Gretchen Elizabeth Allergies, Adverse Reactions, Alerts Substance Reaction Severity Status minocycline rash Active sulfADIAZINE unsure of reaction Active levothyroxine lip swelling Active Assessment and Plan Extracted from: Title:follow-up Author:DO Walton Gretchen Eliz abeth Date:12/08/23 1.Alcohol use disorder, se shay, in early remission Active, patient celebrating 6 monthsin recovery, actively engaged withcommunityhere in [place], attending multiple meetings andorganizing efforts, utilizingexperienceand making change. 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 Overall, patientdoing wellfrom a neurological standpoint, tremor has improved,she is feeling more steady on her feethowever still utilizes a cane at times. Maintains close follow-up with PCP. 2.Bipolar disorder Chronic, active,patient reports being diagnosed with bipolar 2, currently on Lamictal, has been recommended trial of Vraylar but has concerns due to tar dive dyskinesia while on Abilify. Advised patient to talk to clinician at psychiatricinicin regards to concerns about TD. Patient doing well with therapy, working onpast trauma,hard work but progressing. Struggling with claustrophobic tendenciesfor years. 3.Breast CA Patient reports 5 years frombreast cancer remission, she follows with [facility] and states she is up-to-date onbilateral MRIthis year, will attemptto obtain records. Total physician time spent on day of encounter with patient including pre-visit planning, chart review, [id number] discussion, education, care coordination,and documentation:34 minutes Immunizations Given and Recorded Vaccine Date Status Refusal Reason SARS-CoV-2 (COVID-19) mRNA BNT-162b2 vax 1 09/16/21 Recorded tetanus/diphtheria/pertuss, acel (Tdap) 2 06/06/21 Recorded tetanus/diphtheria/pertuss, acel (Tdap) 3 07/12/20 Recorded tetanus/diphtheria/pertuss, acel (Tdap) 4 12/20/10 Recorded SARS-CoV-2 (COVID-19) mRNA-1273 vaccine 5 01/24/21 Recorded SARS-CoV-2 (COVID-19) mRNA-1273 vaccine 6 12/27/20 Recorded zoster vaccine, inactivated 7 04/26/20 Recorded zoster vaccine, inactivated 8 01/20/20 Recorded pneumococcal 23-valent vaccine 9 03/20/17 Recorded 1Result Comment: 2021-11-13: Historical information-source unspecified 2Result Comment: 2021-11-13: Historical information-source unspecified 3Result Comment: 2021-11-13: Historical information-source unspecified 4Result Comment: 2021-11-13: Historical information-source unspecified 5Result Comment: 2021-11-13: Historical information-source unspecified 6Result Comment: 2021-11-13: Historical information-source unspecified 7Result Comment: 2021-11-13: Historical information-source unspecified 8Result Comment: 2021-11-13: Historical information-source unspecified 9Result Comment: 2021-11-13: Historical information-source unspecified Medications Albuterol (Eqv-ProAir HFA) Start: 04/16/23 9:25:00 EDT Start Date: 04/16/23 Status: Ordered anastrozole 1 mg oral tablet Start: 04/16/23 9:24:00 EDT, 1 tab, PO, Daily Start Date: 04/16/23 Status: Ordered Astelin 137 mcg/inh nasal spray Start: 04/16/23 16:36:00 EDT, 1 spray, each nostril, bid, Disp# 2 each, Refills: 3, Pharmacy: [facility] Start Date: 04/16/23 Status: Ordered atorvastatin 20 mg oral tablet Start: 04/16/23 16:36:00 EDT, 1 tab, PO, Daily, Disp# 90 tab, Refills: 3, Pharmacy: [facility] Start Date: 04/16/23 Status: Ordered benztropine 1 mg oral tablet Start: 09/11/23 16:20:00 EDT, 0.5 mg =, PO, bid, Disp# 60 tab, Pharmacy: [facility]/pharmacy #[id number] Start Date: 09/11/23 Status: Ordered Flonase 50 mcg/inh nasal spray Start: 04/16/23 16:36:00 EDT, 1 spray, each nostril, Daily, Disp# 16 g, Refills: 3, Pharmacy: [facility] Start Date: 04/16/23 Status: Ordered folic acid 0.4 mg oral tablet Start: 08/11/23 15:37:00 EDT, 1 tab, PO, Daily Start Date: 08/11/23 Status: Ordered gabapentin 300 mg oral capsule Start: 04/16/23 9:24:00 EDT, 1 cap, PO, tid Start Date: 04/16/23 Status: Ordered LaMICtal 200 mg oral tablet Start: 04/16/23 14:13:00 EDT, 1 tab, PO, Daily Start Date: 04/16/23 Status: Ordered meclizine 12.5 mg oral tablet Start: 10/13/23 14:33:00 EST, 1 tab, PO, tid, Disp# 30 tab, PRN: as needed for dizziness, Pharmacy:[facility]/pharmacy #[id number] Start Date: 10/13/23 Status: Ordered Melatonin 5 mg oral tablet Start: 11/13/21 10:28:00 EST, 1 tab, PO, qhs, PRN: Insomnia Start Date: 11/13/21 Status: Ordered propranolol 10 mg oral tablet Start: 09/11/23 16:23:00 EDT, 1 tab, PO, bid, Disp# 60 tab, Pharmacy: [facility]/pharmacy #[id number] Start Date: 09/11/23 Status: Ordered Protonix 40 mg oral delayed release tablet Start: 08/20/23 10:44:00 EDT, 1 tab, PO, Daily, Disp# 90 tab, Refills: 3, Pharmacy: [facility] Start Date: 08/20/23 Stop Date: 08/14/24 Status: Ordered Provera 10 mg oral tablet Start: 10/13/23 13:44:00 EST, 1 tab, PO, Daily Start Date: 10/13/23 Stop Date: 10/17/23 Status: Ordered pseudoephedrine Start: 04/16/23 9:27:00 EDT, 120 mg =, PO, q12h, PRN: as needed for cold symptoms Start Date: 04/16/23 Status: Ordered traZODone 100 mg oral tablet Start: 04/16/23 9:24:00 EDT, 1 tab, PO, qhs Start Date: 04/16/23 Status: Ordered Vitamin B Complex oral capsule Start: 06/23/23 14:01:00 EDT, 1 cap, PO, Daily Start Date: 06/23/23 Status: Ordered ZyrTEC 10 mg oral tablet Start: 04/16/23 16:36:00 EDT, 1 tab, PO, Daily, Disp# 90 tab, Refills: 3, PRN: as needed for allergy symptoms, Pharmacy: [facility] Start Date: 04/16/23 Status: Ordered Mental Status 12/08/23 Barriers to Learning one year None evide nt Mandatory Health Literacy Documentation Yes Health Literacy Communication Barriers N ever Primary Language Mongolian Problem List Condition Confirmation Course Effective Dates Status H ealth Status Informant Alcohol use disorder, severe, in early remission Confirmed Active Bipolar disorder Confirmed Active Dysphagia Confirmed Active Hyperlipidemia Confirmed Active Impaired fasting glucose Confirmed Active Elevated LFTs Confirmed Active Schatzki's ring Confirmed Active Breast CA Confirmed Active Mood disorder Confirmed Active Hospital discharge follow-up Confirmed Active SVT (supraventricular tachycardia) Confirmed Active Diagnosis Diagnosis Type Effective Dates Health Status Cl inical Service Informant Alcohol use disorder, severe, in early remission Discharge Diagnosis 12/09/23 Bipolar disorder Discharge Diagnosis 12/09/23 Breast CA Discharge Diagnosis 12/09/23 Procedures Procedure Date Related Diagnosis Body Site Status EGD - Esophagogastroduodenoscopy 1 08/12/23 Completed Chest x-ray 2 05/12/23 Completed EGD - Esophagogastroduodenoscopy 3 05/12/23 Completed DILATION AND CURETTAGE 01/2023 Co mpleted Upper GI (gastrointestinal) endoscopy 4 06/30/22 Completed pelvic sonogram 5 06/10/22 Complet ed Chest x-ray 6 05/13/22 Completed EGD - Esophagogastroduodenoscopy 7 05/13/22 Completed Radiography of chest 8 05/13/22 Co mpleted Chest X-ray 9 05/12/22 Completed Colonoscopy 10, 11 02/19/22 Comple rajat PAP test date 02/06/22 Completed Polysomnography 12 02/04/22 Comple rajat MRI of bilateral breasts w w /o contrast 13 12/18/21 Completed Diagnostic mammogram 14 11/22/21 C ompleted Colonoscopy 15 05/01/16 Completed Removal of gallbladder 2002 Co mpleted Lumpectomy of breast 16 C ompleted 1Impression: - Benign appearing esophageal stenosis. Dilated. - Small hiatal hernia - Normal examined duodenum - No specimens collected. 2no acute process 3- food in the lower third of the esophagus - benigh-appearing esophageal stenosis. dilated - moderately svere reflux esophagitis with no bleeding - a medium amount of food (residue) in the stomach - gastritis - normal examined duodenum - no specimens collected 4no endoscopic abnormality was evident in the esophagus to explain the patient's complaint of dysphagia. it was decided, however, to proceed with dilation of the entire esophagus. bioposies were taken 51. thickened dendometrial stripe measuring 23 mm 2. adenomyosis 61. tip of the endotracheal tube at the caina and directed towards right mainstem bronchus. it should be retracted at least 2 cm 2. there is associated left basilar atelectasis and small left pleural effusion 7Food in the middle third of the esphagus and in the lower third of the esophagus. Removal was successful. Esophagogastric landmarks identified. Moderately severe erosive esophagitis. Moderate Schatzki ring. Erythematous mucosa in the antrum. Normal examined duodenum. The examtion was otherwise normal. 81. interval extubation 2. improved aeration of the left lung with mild persistent left basilar opacities 9no acute chest disease 10Repeat in 5 years. 11- redundant colon - examination was otherwise normal on direct and retroflexion views - no specimens collected 12findings are consistent with moderate obstructive 13no magnetic resonance evidence of malignancy. stable postsurgicl changes with no associated suspicious enhancement. benign 14no mammographic evidence of malignancy 15Colonoscopy for rectal bleeding Findings The perianal exam findings include a skin tag, the entire examined colon appeared normal Impression: Perianal skin tag found on perianal exam, the entire examined colon is normal, no specimens collected, Recommendation Discharge patient to home ambulatory, resume previous diet today, continue present medications, repeat colonoscopy in 10 years for screening purposes. 16breast ca ER/DC+ Vital Signs Most recent to oldest [Reference Range]: 1 Temperature [36.5-37.9 DegC] 37.0 DegC (12/08/23 11:34 AM) Heart Rate 78 bpm (12/08/23 11:34 AM) Respiratory Rate 18 br/min (12/08/23 11:34 AM) Blood Pressure 118/84mmHg (12/08/23 11:34 AM) Cuff Pulse Pressure 34 mmHg (12/08/23 11:34 AM) Social History Social History Type Response Smoking Status Never smoked cigaret akira Sex Female [facility] Outpt Note * DO Walton Gretchen Elizabeth: PERFORM Event Display: [facility] Outpt Note Authored Date: [id number] Chief Complaint F/U, Needs refill on medications, has question about protonix History of Present Illness Celebrating 6 months remission-will send to son Son Sunil [place], digital solutions architect Has two sons, Orestes and Nabil (adopted, fresh air kid-estranged at present, he's living locally) both 25 yrs Walking much better, more steady, still uses cane Had severe pain prior to D&C, rescheduled Had hard BM Tremor improved Utilizing cane Neuro 12/21/23 Three meetings a day, has been reorganizing/cleaning, 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 Physical Exam Vitals & Measurements T:37.0C HR:78(Monitored) RR:18 BP:118/84 SpO2:96% PHQ2 Data(Data Documented on:12/08/2023 11:32) Emotional health assessment NEGATIVE General:Alert and oriented, No acute distress HEENT:Normocephalic, conjunctiva clear bilaterally, normal external ears Respiratory: Normal respiratory effort Psych:Mood-affect congruent. Speech normal pace. Assessment/Plan 1.Alcohol use disorder, severe, in early remission Active, patient celebrating 6 monthsin recovery, actively engaged withcommunityhere in [place], attending multiple meetings andorganizing efforts, utilizingexperienceand making change. 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 Overall, patientdoing wellfrom a neurological standpoint, tremor has improved,she is feeling more steady on her feethowever still utilizes a cane at times. Maintains close follow-up with PCP. 2.Bipolar disorder Chronic, active,patient reports being diagnosed with bipolar 2, currently on Lamictal, has been recommended trial of Vraylar but has concerns due to tar dive dyskinesia while on Abilify. Advised patient to talk to clinician at psychiatricinicin regards to concerns about TD. Patient doing well with therapy, working onpast trauma,hard work but progressing. Struggling with claustrophobic tendenciesfor years. 3.Breast CA Patient reports 5 years frombreast cancer remission, she follows with [facility] and states she [id number] onbilateral MRIthis year, will attemptto obtain records. Total physician time spent on day of encounter with patient including pre-visit planning, chart review, [id number] discussion, education, care coordination,and documentation:34 minutes Problem List/Past Medical History Ongoing Alcohol use disorder, severe, in early remission Bipolar disorder Breast CA Dysphagia Elevated LFTs Hospital discharge follow-up Hyperlipidemia Impaired fasting glucose Mood disorder Schatzki's ring SVT (supraventricular tachycardia) Procedure/Surgical History EGD - Esophagogastroduodenoscopy (08/12/2023)EGD - Esophagogastroduodenoscopy (05/12/2023)Chest x-ray (05/12/2023)DILATION AND CURETTAGE (01/2023)Upper GI (gastrointestinal) endoscopy ( 06/30/2022)pelvic sonogram (06/10/2022)Radiography of chest (05/13/2022)Chest x-ray (05/13/2022)EGD - Esophagogastroduodenoscopy (05/13/2022)Chest X-ray (05/12/2022)Colonoscopy (02/19/2022)PAP test date (02/06/2022)Polysomnography (02/04/2022)MRI of bilateral breasts w w/o contrast (12/18/2021)Diagnostic mammogram (11/22/2021)Colonoscopy (05/01/2016)Removal of gallbladder (2002)Lumpectomy of breast Medications albuterol(Albuterol (Eqv-ProAir HFA)) anastrozole(anastrozole 1 mg oral tablet), 1 mg= 1 tab, PO, Daily atorvastatin(atorvastatin 20 mg oral tablet), 20 mg= 1 tab, PO, Daily, 3 refills azelastine nasal(Astelin 137 mcg/inh nasal spray), 1 spray, each nostril, bid, 3 refills benztropine(benztropine 1 mg oral tablet), 0.5 mg, PO, bid cetirizine(ZyrTEC 10 mg oral tablet), 10 mg= 1 tab, PO, Daily, PRN, 3 refills fluticasone nasal(Flonase 50 mcg/inh nasal spray), 1 spray, each nostril, Daily, 3 refills folic acid(folic acid 0.4 mg oral tablet), 0.4 mg= 1 tab, PO, Daily gabapentin(gabapentin 300 mg oral capsule), 300 mg= 1 cap, PO, tid lamoTRIgine(LaMICtal 200 mg oral tablet), 200 mg= 1 tab, PO, Daily meclizine(meclizine 12.5 mg oral tablet), 12.5 mg= 1 tab, PO, tid, PRN medroxyPROGESTERone(Provera 10 mg oral tablet), 10 mg= 1 tab, PO, Daily melatonin(Melatonin 5 mg oral tablet), 5 mg= 1 tab, PO, qhs, PRN multivitamin(Vitamin B Complex oral capsule), 1 cap, PO, Daily pantoprazole(Protonix 40 mg oral delayed release tablet), 40 mg= 1 tab, PO, Daily, 3 refills propranolol(propranolol 10 mg oral tablet), 10 mg= 1 tab, PO, bid pseudoephedrine, 120 mg, PO, q12h, PRN traZODone(traZODone 100 mg oral tablet), 100 mg= 1 tab, PO, qhs Allergies levothyroxinelip swelling minocyclinerash sulfADIAZINEunsure of reaction Social History Smoking Status Never smoked cigarettes Family History Breast cancer: Mother. Hypertension: Father. Type II diabetes mellitus: Father. Vision disorder: Mother. Health Status Family Member(s) Immunizations Vaccine Date Status SARS-CoV-2 (COVID-19) mRNA BNT-162b2 vax 09/16/2021 Recorded Comments : 2021-11-13: Historical information-source unspecified tetanus/diphtheria/pertuss, acel (Tdap) 06/06/2021 Recorded Comments : 2021-11-13: Historical information-source unspecified SARS-CoV-2 (COVID-19) mRNA-1273 vaccine 01/24/2021 Recorded Comments : 2021-11-13: Historical information-source unspecified SARS-CoV-2 (COVID-19) mRNA-1273 vaccine 12/27/2020 Recorded Comments : 2021-11-13: Historical information-source unspecified tetanus/diphtheria/pertuss, acel (Tdap) 07/12/2020 Recorded Comments : 2021-11-13: Historical information-source unspecified zoster vaccine, inactivated 04/26/2020 Recorded Comments : 2021-11-13: Historical information-source unspecified zoster vaccine, inactivated 01/20/2020 Recorded Comments : 2021-11-13: Historical information-source unspecified pneumococcal 23-valent vaccine 03/20/2017 Recorded Comments : 2021-11-13: Historical information-source unspecified tetanus/diphtheria/pertuss, acel (Tdap) 12/20/2010 Recorded Comments : 2021-11-13: Historical information-source unspecified Recommendations Health Maintenance Pending(in the next year) OverDue Adult Influenza Vaccine due05/22/23and every 1year Due Adult COVID-19 Vaccination due12/09/23Unknown Frequency Adult Social Determinants of Health Screening due12/09/23Unknown Frequency Hepatitis C Screening due12/09/23One-time only Pneumococcal Vaccine Adults and Adolescents with Chronic Illness due12/09/23One-time only Due In Future Body Mass Index not due until10/27/24and every 366day Satisfied(in the past 1 year) Satisfied Body Mass Index on10/27/23.Satisfied by SAROJ Zhang Paula Electronic Signature on File Electronically Reviewed/Signed by: Kanika Walton D.O. Author Signature Dt/Tm:12/09/2023 05:30 PM Department of Family Medicine [facility] Patient Care team information Care Team Personnel Name: DO Dash Nicholas Position: Resident Member Role: Primary Care Provider Address: Address: [address] [place] [address] [place] Care Team Related Persons Name: PINA MORRISON
--- OUTSIDE RECORDS SUMMARY | 2024-01-03 13:39 | External Medical Summary | Continuity of Care Document ---
Author Name Unknown Organization [place] [address] [place] [address] [id number] Care Team Providers Care Graphic Illustrator Name Role Phone Luís Dash Primary Care Physician [phone] Encounter [facility] [id number] Date(s): 12/03/23 - 12/03/23 [facility] [address] Medical [facility] [address] [place] [id number] [place] [phone] Encounter Diagnosis Sacral pain(Discharge Diagnosis) - 12/03/23 Discharge Disposition: Home or Self Care Attending Physician: DO Mason Stephanie Marie Allergies, Adverse Reactions, Alerts Substance Reaction Severity Status minocycline rash Active sulfADIAZINE unsure of reaction Active levothyroxine lip swelling Active Assessment and Plan Extracted from: Title:Office Visit Note Author:DO Mason Steph anie Marie Date:12/03/23 1.Sacral pain Undiagnosed problem Goal:Resolution Data:unique tests ordered:sacral XR _ Plan: Patient's subjective c/o pain has fully resolved spontaneously prior to appointment. Exam is unremarkable. Will get XR imaging. Attempted to call patient's FINANCIAL SERVICES REPRESENTATIVE but he was unavailable; message left for him. No indication for repeat labs at this time. Return precautions provided. Signs/sxs that would necessitate emergent evaluation reviewed with patient. Encouraged patient to call office with any questions or concerns. She already has f/u scheduled with Dr. Walton in 5 days; I encouraged her to keep this appointment. Case was reviewed with Dr. Walton at time of patient's visit; warm hand-off provided. Inclusive of time spent reviewing the medical record, [id number] time with the patient, and time spent in documentation, the total minutes spent on this encounter today was 38 minutes. Immunizations Given and Recorded Vaccine Date Status [...] bid, Disp# 2 each, Refills: 3, Pharmacy: [facility] Start Date: 04/16/23 Status: Ordered atorvastatin 20 mg oral tablet Start: 04/16/23 16:36:00 EDT, 1 tab, PO, Daily, Disp# 90 tab, Refills: 3, [facility] Start Date: 04/16/23 Status: Ordered benztropine 1 mg oral tablet Start: 09/11/23 16:20:00 EDT, 0.5 mg =, PO, bid, Disp# 60 tab, Pharmacy: [facility]/pharmacy #[id number] Start Date: 09/11/23 Status: Ordered Flonase 50 mcg/inh nasal spray Start: 04/16/23 16:36:00 EDT, 1 spray, each nostril, Daily, Disp# 16 g, Refills: 3, Pharmacy: [facility] Start Date: 04/16/23 Status: Ordered [...] 30 tab, PRN: as needed for dizziness, Pharmacy:[facility]/pharmacy #[id number] Start Date: 10/13/23 Status: Ordered Melatonin 5 mg oral tablet Start: 11/13/21 10:28:00 EST, 1 tab, PO, qhs, PRN: Insomnia Start Date: 11/13/21 Status: Ordered propranolol 10 mg oral tablet Start: 09/11/23 16:23:00 EDT, 1 tab, PO, bid, Disp# 60 tab, Pharmacy: [facility]/pharmacy #[id number] Start Date: 09/11/23 Status: Ordered Protonix 40 mg oral delayed release tablet Start: 08/20/23 10:44:00 EDT, 1 tab, PO, Daily, Disp# 90 tab, Refills: 3, [facility] Start Date: 08/20/23 Stop Date: 08/14/24 [...] PRN: as needed for allergy symptoms, Pharmacy: [facility] Start Date: 04/16/23 Status: Ordered Mental Status 12/03/23 Barriers to Learning one year None evide nt Mandatory Health Literacy Documentation Yes Health Literacy Communication Barriers N ever Primary Language North Korean Problem List Condition Confirmation Course Effective Dates [...] Diagnosis Diagnosis Type Effective Dates Health Status Clini yuni Service Informant Sacral pain Discharge Diagnosis 12/03/23 Procedures Procedure Date Related Diagnosis Body Site [...] 9 05/12/22 Completed Colonoscopy 10, 11 02/19/22 [facility] PAP test date 02/06/22 Completed Polysomnography 12 02/04/22 [facility] MRI of bilateral breasts w w /o [...] 10 years for screening purposes. 16breast ca ER/CA+ Vital Signs Most recent to oldest [Reference Range]: 1 Temperature [36.5-37.9 DegC] 36.8 DegC (12/03/23 3:27 PM) Respiratory Rate 20 br/min (12/03/23 3:27 PM) Blood Pressure 122/76mmHg (12/03/23 3:27 PM) Cuff Pulse Pressure 46 mmHg (12/03/23 3:27 PM) Social History Social History Type Response Smoking Status Never smoked cigaret akira Sex Female FCM Outpt Note * DO Mason Stephanie Marie: PERFORM Event Display: FCM Outpt Note Authored Date: Chief Complaint tail bone pain since this morning History of Present Illness Patient is a58 year oldfemale presenting to the office with c/o "tailbone pain". - Got up to go to have surgery (D&C) with FINANCIAL SERVICES REPRESENTATIVE Dr. Pearec ([facility]) this AM - Between 0713-7275 this AM had acute onset of "extreme tailbone pain" - Confirms no pain when went to bed last night - Pain described as sharp and pinching; pain was a 10/10 - Was in the OR with Dr. Pearce but unable to get comfortable due to the pain noted above; notes that Dr. Pearce had patient lay on side, palpated area, pushed hard and could not explain patient's pain - Per patient, no imaging was able to be done - Patient was unable to have surgical procedure; per patient"no surgery due to concern for infection" (? pilonidal cyst) - Has been using coccyx pillow throughout the day w/ relief - Patient notes that pain is now fully resolved, current pain 0/10 - Unable to report what time pain resolved - She has taken 1000mg Tylenol 2x today (4 hours apart) - Patient deniesfever, chills, perianal rash/discharge/drainage/purulence, urinary incontinence, fecal incontinence, or saddle anesthesia - Notes WBC normal 2 days ago - Patient states "I honestly think I'm making it up. I don't understand how it could hurt that much. It felt like labor." - She does not feel that she was too anxious about surgery today - Notes history of breast cancer, almost at year 5 of remission Physical Exam Vitals & Measurements T:36.8C RR:20 BP:122/76 PHQ2 Data(Data Documented on:12/03/2023 15:25) Emotional health assessment NEGATIVE Exam completed with user experience team lead, Ca Antonio LPN. GENERAL: No acute distress. Well developed and well nourished. Vital signs reviewed as above. EYES: EOMI. Anicteric sclerae. HENT: Moist mucous membranes. RESPIRATORY: Unlabored respirations. No conversational dyspnea. EXTREMITIES: No gross deformities. SKIN: Warm, dry. No perianal fissure, cysts, abscesses appreciated. No palpable pilonidal cyst. No discharge, drainage, or rash. BACK: No tenderness to palpation over sacrum and coccyx. There are no rashes appreciated. There is some mild tenderness to deep palpation over left SI joint but exam was not consistent and patient was tender at different points on repeated palpation. Full active ROM. No sensorimotor deficits. MSK: 5/5 strength with BLE hip flexion, extension, abduction, and adduction. No sensorimotor deficits to BLE. NEUROLOGIC: Alert and oriented. Normal speech. No gross focal neurological deficits. PSYCHIATRIC: Cooperative. Appropriate mood and affect. Assessment/Plan 1.Sacral pain Undiagnosed problem Goal:Resolution Data:unique tests ordered:sacral XR _ Plan: Patient's subjective c/o pain has fully resolved spontaneously prior to appointment. Exam is unremarkable. Will get XR imaging. Attempted to call patient's FINANCIAL SERVICES REPRESENTATIVE but he was unavailable; message left for him. No indication for repeat labs at this time. Return precautions provided. Signs/sxs thatwould necessitate emergent evaluation reviewed with patient. Encouraged patient to call office withany questions or concerns. She already has f/u scheduled with Dr. Walton in 5 days; I encouraged her to keep this appointment. Case was reviewed with Dr. Walton at time of patient's visit; warm hand-off provided. Inclusive of time spent reviewing the medical record, [id number] time with the patient, and time spent in documentation, the total minutes spent on this encounter today was 38 minutes. Problem List/Past Medical History Ongoing Alcohol use [...] due05/22/23and every 1year Due Adult COVID-19 Vaccination due12/04/23Unknown Frequency Adult Social Determinants of Health Screening due12/04/23Unknown Frequency Hepatitis C Screening due12/04/23One-time only Pneumococcal Vaccine Adults and Adolescents with Chronic Illness due12/04/23One-time only Due In Future Body Mass Index not due until10/27/24and every 366day Satisfied(in the past 1 year) Satisfied Body Mass Index on10/27/23.Satisfied by SAROJ Zhang Paula Electronic Signature on File CC: Frandy Encarnacion MD [facility] [place] [id number] Electronically Reviewed/Signed by: Jaz Mason DO Author Signature Dt/Tm:12/04/2023 01:17 AM Department of Family Medicine SMB Patient Care team information Care Team Personnel Name: DO Dash Nicholas Position: Resident Member Role: Primary Care Provider Address: Address: [address] [place] [address] [place] Care Team Related Persons Name: PINA MORRISON
--- OUTSIDE RECORDS SUMMARY | 2024-01-03 13:39 | External Medical Summary | Continuity of Care Document ---
Author Name Unknown Organization [place] [address] [address] Address [address] [facility] [address] [id number] Care Team Providers Care Supervisor Publications Production Name Role Phone Luís Dash Primary Care Physician [phone] [facility] [id number] Date(s): 12/21/23 - 12/21/23 [place] [address] [address] [facility] [address] [facility], [address] [place] [address] [phone] Encounter Diagnosis Body mass index [BMI] 28.0-28.9, adult(Discharge Diagnosis) - 12/21/23 Dizziness(Discharge Diagnosis) - 12/21/23 Imbalance(Discharge Diagnosis) - 12/21/23 Discharge Disposition: Home or Self Care Attending Physician: PATIENCE Villanueva, Zoë Bae Allergies, Adverse Reactions, Alerts Substance Reaction Severity Status minocycline rash Active sulfADIAZINE unsure of reaction Active levothyroxine lip swelling Active Immunizations Given and Recorded Vaccine Date Status [...] bid, Disp# 2 each, Refills: 3, [facility]: [facility] Start Date: 04/16/23 Status: Ordered atorvastatin 20 mg oral tablet Start: 04/16/23 16:36:00 EDT, 1 tab, PO, Daily, Disp# 90 tab, Refills: 3, [facility] Start Date: 04/16/23 Status: Ordered Flonase 50 mcg/inh nasal spray Start: 04/16/23 16:36:00 EDT, 1 spray, each nostril, Daily, Disp# 16 g, Refills: 3, [facility]acy: [facility] Start Date: 04/16/23 Status: Ordered gabapentin 300 mg oral capsule Start: 04/16/23 9:24:00 EDT, 1 cap, PO, tid Start Date: 04/16/23 Status: Ordered LaMICtal 200 mg oral tablet Start: 04/16/23 14:13:00 EDT, 1 tab, PO, Daily Start Date: 04/16/23 Status: Ordered Melatonin 5 mg oral tablet Start: 11/13/21 10:28:00 EST, 1 tab, PO, qhs, PRN: Insomnia Start Date: 11/13/21 Status: Ordered propranolol 10 mg oral tablet Start: 09/11/23 16:23:00 EDT, 1 tab, PO, bid, Disp# 60 tab, Pharmacy: [facility]/pharmacy #[id number] Start Date: 09/11/23 Status: Ordered Protonix 40 mg oral delayed release tablet Start: 08/20/23 10:44:00 EDT, 1 tab, PO, Daily, Disp# 90 tab, Refills: 3, [facility] Start Date: 08/20/23 Stop Date: 08/14/24 [...] PO, qhs Start Date: 04/16/23 Status: Ordered traZODone 150 mg oral tablet Start: 12/21/23 9:14:00 EST, 1 tab, PO, qhs Start Date: 12/21/23 Status: Ordered ZyrTEC 10 mg oral tablet Start: 04/16/23 16:36:00 EDT, 1 tab, PO, Daily, Disp# 90 tab, Refills: 3, PRN: as needed for allergy symptoms, Pharmacy: [facility] Start Date: 04/16/23 Status: Ordered Mental Status 12/21/23 Barriers to Learning one year None evide nt Mandatory Health Literacy Documentation Yes Communication Barrier Present No Health Literacy Communication Barriers N ever Primary Language Maldivian Problem List Condition Confirmation Course Effective Dates Status H ealth Status Informant Alcohol use disorder, severe, in early remission Confirmed Active Bipolar disorder Confirmed Active Dizziness Confirmed Active Dysphagia Confirmed Active Hyperlipidemia Confirmed Active Impaired fasting glucose Confirmed Active Imbalance Confirmed Active Elevated LFTs Confirmed Active Schatzki's ring Confirmed Active Breast CA Confirmed Active Mood disorder Confirmed Active Hospital discharge follow-up Confirmed Active SVT (supraventricular tachycardia) Confirmed Active Diagnosis Diagnosis Type Effective Dates Health Status Cl inical Service Informant Body mass index [BMI] 28.0-28.9, adult Discharge Diagnosis 12/21/23 Non-Specified Dizziness Discharge Diagnosis 12/21/23 Imbalance Discharge Diagnosis 12/21/23 Procedures Procedure Date Related Diagnosis Body Site [...] gallbladder 2002 Co mpleted Lumpectomy of breast C ompleted 1Impression: - Benign appearing esophageal [...] 10 years for screening purposes. 16breast ca ER/NV+ Vital Signs Most recent to oldest [Reference Range]: 1 Height 167.64 cm (12/21/23 9:16 AM) Patient Weight 79.8 kg (12/21/23 9:16 AM) Body Mass Index 28.4 kg/m2 (12/21/23 9:16 AM) Heart Rate 77 bpm (12/21/23 9:16 AM) Blood Pressure 129/87mmHg (12/21/23 9:16 AM) Cuff Pulse Pressure 42 mmHg (12/21/23 9:16 AM) BP Location # 1 Right Arm (12/21/23 9:16 AM) Social History Social History Type Response Smoking Status Never smoked cigaret akira Sex Female Patient Care team information Care Team Personnel Name: DO Dash Nicholas Position: Resident Member Role: Primary Care Provider Address: Address: [address] [facility] [address] [place] [address] [place] Care Team Related Persons Name: PINA MORRISON
--- OUTSIDE RECORDS SUMMARY | 2024-01-03 13:39 | External Medical Summary | Summary of Care ---
Author Name Unknown Organization [facility] Address [address] [place] [address] Phone [phone] Care Team Providers Care Collator Name Role Phone Unavailable Primary Care Provider Unavailabl e Reason for Visit * Auth/Cert Specialty Diagnoses / Procedures Referred By Piper t Referred To Contact Diagnoses Postmenopausal bleeding Postmenopausal bleeding [N95.0] Procedures HYSTEROSCOPY W/BIOPSY AND/OR POLYPECTOMY W/WO D&C PELVIC EXAM UNDER ANESTHESIA, NOT LOCAL HYSTEROSCOPY WITH BIOPSY AND/OR POLYPECTOMY WITH OR WITHOUT D&C PELVIC EXAMINATION UNDER ANESTHESIA Referral ID Status Reason Start Date Expiration Date Visits Re quested Visits Authorized [id number] Encounter Details Date Type Department Care Team (Latest Contact Info) Description 12/03/2023 12:05 PM EST - 12/03/2023 2:08 PM EST Hospital Encounter OR [facility], Operating Room [facility] [address] [place] [phone] Guy Pearce MD [address] [address] Discharge Disposition: Home - Self Care Allergies Active Allergy Reactions Criticality Noted Date Comments Levothyroxine Edema face/lips/tongue High 06/20/2020 Edema to lips only per pt Minocycline Hcl Rash 08/13/2010 Alcohol 01/22/2023 Reaction with medication Sulfa Antibiotics 06/02/2001 Pt does not remember. Reacted as a child documented as of this encounter (statuses as of 12/04/2023) Medications Medication Sig Dispensed Refills Start Date [...] HCl 100 MG Oral Tablet (Desyrel) Take 1 Tablet by mouth at bedtime. 0 Active medroxyPROGESTERon e Acetate 10 MG Oral Tablet (Provera) Take two tablets by mouth twice daily 120 Tablet 6 12/15/2022 Active Fluticasone Propionate 50 MCG/ACT Nasal Suspension Administer 2 Sprays into nostril in the morning and 2 Sprays in the evening. 0 Active Azelastine HCl 0.1 % Nasal Solution Administer 1 [place] into nostril in the morning and 1 [place] before bedtime. 0 Active Ibuprofen 600 MG [...] Tablet by mouth in the morning. 0 Active Vivitrol 380 MG Intramuscular Suspension Reconstituted (naltrexone depot) Inject into a large muscle once. 0 Active Pseudoephedrine HCl ER 120 MG Oral Tablet Extended Release 12 Hour Take 1 Tablet by mouth in the morning and 1 Tablet before bedtime. 0 Active Melatonin 5 MG Oral Capsule 1 Capsule. 0 11/13/2021 Active Anastrozole 1 MG Oral Tablet (Arimidex)Indicati ons:Ductal carcinoma in situ (DCIS) of left breast [...] Tablet by mouth in the morning. 0 07/06/2023 Active lamoTRIgine 100 MG Oral Tablet (LaMICtal) Take 1 Tablet by mouth at bedtime. 0 08/18/2023 Active lamoTRIgine 200 MG Oral Tablet (LaMICtal) Take 0.5 Tablets by mouth in the morning. 0 09/12/2023 Active Metoprolol Succinate ER 50 MG Oral Tablet Extended Release 24 Hour (toPROL XL) Take by mouth 1 Tablet in the morning. 100 Tablet 5 03/13/2022 11/30/19 24 Discontinued documented as of this encounter (statuses as of 12/04/2023) Active Problems Problem Noted Date Diagnosed Date [...] as of this encounter (statuses as of 12/04/2023) Resolved Problems Problem Noted Date Diagnosed Date Resolved Date CHOLELITH W AC CHOLECYST 02/22/2004 documented as of this encounter (statuses as of 12/04/2023) Immunizations Name Administration Dates Next Due COVID-19 [...] Sign Reading Time Taken Comments Blood Pressure 138/82 12/03/2023 12:23 PM EST Pulse 76 12/03/2023 12:23 PM EST Temperature 36.1 C (97 F) 12/03/2023 12:23 PM EST Respiratory Rate 20 12/03/2023 12:23 PM EST Oxygen Saturation 100% 12/03/2023 12:23 PM EST Inhaled Oxygen Concentration - - Weight 74.8 kg (165 lb) 12/03/2023 12:23 PM EST Height 167.6 cm (5' 6") 12/03/2023 12:23 PM EST Body Mass Index 26.63 12/03/2023 12:23 PM EST documented in this encounter Progress Notes * Guy Pearce MD - 12/03/2023 2:08 PM EST Patient is seen in preop for surgery. Patient reported seen via pain in her coccyx physical exam done showed no erythema,edema,lesions, laceration or bruises in the region She has severe pain on palpation Pt denies any recent fall or trauma Pt wishes to reschedule surgery Anesthesia is informed and surgery is canceled for now Pt can reschedule surgery after evaluation with PCP Surgery is cancelled for today documented in this encounter Nursing Notes * Jaz Macario RN - 12/03/2023 2:07 PM EST Pt discharged ambulatory to waiting room for greens picker by friend Nathaniel. * Jaz Macario RN - 12/03/2023 1:[address] Pearce talks with pt in regards to recent severe tail bone pain, pt states wants to cancel procedure. Dr. Pearce instructed pt to follow up with pcp for further testing, pt agreeable to plan of care. * Jaz Macario RN - 12/03/2023 12:28 PM EST Surgical consent verified with patient. Patient agrees with listed procedure and verified signature. documented in this encounter Plan of Treatment Upcoming Encounters Date Type Department Care Team (Late st Contact Info) Description 01/04/2024 3:30 PM EST Office Visit Gynecology/Obstetrics Mara Rodriguez [address] [place] [address] Guy Pearce MD [address] [place] [id number] Scheduled Procedures Name Priority Associated Diagnoses Date/Ti [...] ONCE FOR ASTHMA-ADULT 10/16/2022 COVID-19 Vaccine ( - 2022- season) 2023 09/16/2021, 01/24/2021, 12/27/2020 Mammogram 04/16/2024 04/16/2023, 10/23, 12/20/2020, Additional history exists Cervical Cancer Screening 02/06/2025 Pap Smear 02/06/2025 02/06/2022, 04/2019, 09/28/2019, Additional history exists Colonoscopy 05/01/2026 05/01/2016, 07/2016, 11/26/2005 Colorectal Cancer Screening 05/01/2026 Diabetes [...] Not on filedocumented as of this encounter Administered Medications Inactive Administered Medications - up to 3 most recent administrations Medication Order MAR Action Action Date Dose Rate Site isolyte-S pH 7.4 infusion Intravenous, at 100 mL/hr, Plasma-LYTE 148, isolyte-S, and isolyte-S pH 7.4 are considered equivalent - including for MAR barcode scanning., CONTINUOUS, Starting on Ilsa 12/03/23 at 1245, Until Ilsa 12/03/23 at 1808, Pre-Op New Bag 12/03/2023 12:35 PM EST 100 mL/hr documented in this encounter Active and Recently Administered Medications Times are shown in EST. Continuous Medication Order 12/01/2023 12/02/2023 12/03/2023 isolyte-S pH 7.4 infusion Intravenous, at 100 mL/hr, Plasma-LYTE 148, isolyte-S, and isolyte-S pH 7.4 are considered equivalent - including for MAR barcode scanning., CONTINUOUS, Starting on Ilsa 12/03/23 at 1245, Until Ilsa 12/03/23 at 1808, Pre-Op 1235 (New Bag - Prov ider: Jaz Macario RN) documented in this encounter Advance Directives Latest Code Status on File Code Status Date Activated Date Inactivated Comments Full Code 05/07/2016 7:51 AM 05/07/2016 2:51 PM .
--- NOTE | 2024-01-03 14:19 | Emergency Department Note ---
Impression & Plan Noncompliance with medication regimen, GERD (gastroesophageal reflux disease), Anxiety, Bipolar disorder ED Provider Note ED Provider Note NAME: KAUSHAL ROBLEDO AGE:58 SEX: Female : 1965 ARRIVES VIA: Private vehicle INFORMANT: Patient ED PROVIDER(s): Gisella Heredia DO CHIEF COMPLAINT: Mental health evaluation HPI: This is a 58-year-old female presents emergency department for mental health evaluation. Patient states she is disorganized and has a hard time being compliant with her medication regimen. She states she was off her meds for several days. She states she now has increased heartburn because she was off of her Protonix although she did restart it a few days ago. No sense of foreign body in the esophagus, just increased heartburn, but she states she did take an extra of her Protonix. She denies any concern for recent injury or illness. She denies any other physical concerns at this time. She states she has been 6 months sober from alcohol abuse. She denies any recreational drug use. PAST MEDICAL HISTORY:See Below PAST SURGICAL HISTORY:See Below FAMILY HISTORY:See Below SOCIAL HISTORY:See Below HOME MEDICATIONS:See Below ALLERGIES:See Below VITALS:See Below PHYSICAL EXAMINATION: GENERAL: alert, well appearing, well nourished, no distress, non-toxic EYE EXAM: normal conjunctiva, PERRL and EOM's grossly intact OROPHARYNX: no exudate, no erythema, lips, buccal mucosa, and tongue normal and mucous membranes are moist NECK: supple, no nuchal rigidity, no adenopathy, non-tender LUNGS: Clear to auscultation. Normal chest wall mechanics, no w/r/r HEART: no murmurs, S1 normal and S2 normal ABDOMEN: abdomen soft, non-tender, normo-active bowel sounds, no masses, no rebound or guarding. BACK: Back is symmetrical on inspection and there is no deformity, no midline tenderness, no CVA tenderness. SKIN: no rashes, petechiae, orbruising UPPER EXTREMITIES: upper extremities are grossly normal. FROM, nml pulses b/l. LOWER EXTREMITIES: No pitting edema. FROM, nml pulses b/l. NEURO EXAM: Normal sensorium, cranial nerves II-XII grossly intact, normal speech, no facial droop,nogross weakness of arms, no gross weakness of legs. Gross sensation intact. No ataxia. Vital Signs: reviewed and remarkable Differential Diagnosis: mood disorder, suicidal ideation, anxiety, depression, substance abuse, toxidrome, infection, hypoglycemia, electrolyte abnormalities, ICH as well as others were considered. MEDICAL DECISION MAKING: This is a 58-year-old female presents emergency department due to concern for increased anxiety and does admit to recent noncompliance and increased reflux. Protocol labs and urinalysis performed and were reassuring. Patient given Maalox additionally for her GERD like symptoms. She was seen and evaluated by case management and requested inpatient mental health treatment. Patient referred to [facility]. She was seen and evaluated and accepted to their unit. 201 signed by me. Consultation(s): 1455: Seen by case worker. Patient wishes for inpatient treatment. ER Treatment Provided: See below 2315: 201 signed by me. Patient accepted to [facility]. Diagnostics Interpreted By Me: -ECG: Normal sinus at 87, normal axis, normal intervals, no acute ST/T wave changes -Laboratory studies: As stated above and show below. -Imaging studies: X-ray Chest: A single view study of the chest was reviewed and was negative for cardiomegaly, focal infiltrate, effusion, pulmonary edema, or wide mediastinum. Triage Nursing Note Reviewed Prior/Outside Records Reviewed -prior discharge summary reviewed Past Med/Surg History Medical History PAF (paroxysmal atrial fibrillation) pt denies Alcohol withdrawal Schatzki's ring Dysphagia History of anesthesia reaction "04/2022-food bolus, removed under general anesthesia in the OR. Pt was extubated and didn't start breathing right away, so they reintubated her and took her to ICU; I told the doctors that I was definitely not drinking the day of my procedure either." Family history of colon cancer Alcoholism hx-quit drinking most recently 05/2023 - treated in [facility] for 10 days in patient and had her last episode of SVT in May 2023. Post traumatic stress disorder Anxiety Elevated glucose level "watches her diet to keep my level stable" Elevated transaminase level hx Mood disorder Hypothyroidism monitoring levels d/t allergy to levothyroxine Abnormal TSH "on the borderline'-monitoring it and no meds Palpitations "related to drinking, I had SVT's and if I don't drink, I don't have them; have been to the ER to have them checked" f/u Dr. 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 Huynh) last episode 05/2023. treated with adenosine IV in 05/2023. Surgical History History of dilatation and curettage (~01/2023) for endometrial hyperplasia r/t tamoxifen History of dilation and curettage 2003 - s/p miscarriage History of mandibular surgery 1985 History of lumpectomy of right breast x2; radiation tx [id number] History of lumpectomy of left breast x1; x20 radiation tx., no chemo History of breast biopsy 11/30/2019 - Left Breast 02/08/2020 - Right Breast History of surgery 05/07/2016 - Anal Tag Removal H/O colonoscopy 05/01/2016 - perianal skin tag, normal colon H/O esophagogastroduodenoscopy 07/04/2009 - EUS exam- No choledocholithiasis, No masses appreciated in the entire pancreas. EGD exam- Normal examined duodenum. Bilious gastric fluid. Mild gastritis ? bilious etiology. Bx neg for H. pylori. Prominent fold just distal to GEJ. Bx- Squamocolumnar mucosa with mild carditis and hyperplastic changes. Negative for intestinal metaplasia and dysplasia. Medium sized hiatus hernia." On 03/10/17 15:26 Rita España wrote "07/04/2009- EUS exam- No choledocholithiasis, No masses appreciated in the entire pancreas. EGD exam- Normal examined duodenum. Bilious gastric fluid. Mild gastritis ? bilious etiology. This was biopsied to r/o H Pylori. Prominent fold just distal to GEJ. This was biopsied. Medium sized hiatus hernia." S/P laparoscopic cholecystectomy 02/23/2004 Family History Mother Breast cancer, Onset Age: 76 Currently battling metastatic breast cancer Grandmother (Paternal) , Passed age 93 of stomach cancer No problems noted. Grandfather (Maternal) , Passed age 72 of colon cancer No problems noted. Father , Passed age 67 of complications from menigioma No problems noted. Aunt Breast cancer, Onset Age: 34 Alive and well Aunt Breast cancer, Onset Age: 62 alive and well Aunt Breast cancer, Onset Age: 62 Alive and well Brother Stroke Dementia Sister No problems noted. Son No problems noted. Other Family history non-contributory Social History Smoking Status: Never smoker Second Hand Exposure: No; Do You Dip or Chew Tobacco: No; Hx Alcohol Use: Yes (06/06/23 last drink) Alcohol type: wine Alcohol Intake Frequency: 4 or More x per/Week Alcohol Intake Frequency Comment: 3 bottles of wine daily for past 30 days Hx Substance Use: No Preferred Language: Welsh Communication Ability: Effective Visual Impairment: Limited Hearing Ability: Normal Director Of Vocational Guidance Required: No Beliefs That Will Affect Care: None marital status: Current Living Situation: Alone Current Living Situation Comment: has [employer] students/ short term workers renting rooms at her home current occupational status: 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 Feels Safe at Home: Yes Childhood Exposure to Second-Hand Smoke: Yes (Mom ) Diet: regular caffeine: Yes (daily ) during the past year weight has: remained stable Dental Care, Regularly: Yes Gender Identity: Female Assistive Devices: Glasses Allergies Allergies Allergy/AdvReac Type Severity Reaction Status Date / Time levothyroxine Allergy Severe facial Verified 08/12/23 14:17 swelling minocycline [From Minocin] Allergy Mild Rash Verified 08/12/23 14:17 Sulfa (Sulfonamide Allergy Unknown PT DOESN'T Verified 08/12/23 14:17 Antibiotics) REMEMBER REACTION Home Meds Home Medications Medication Instructions Recorded Confirmed atorvastatin 20 mg tablet 20 mg PO HS 02/18/22 01/03/24 cetirizine 10 mg tablet (Zyrtec) 10 mg PO QAM 02/18/22 08/12/23 fluticasone propionate 50 1 spray intranasal BID 02/18/22 08/12/23 mcg/actuation nasal spray,suspension azelastine 137 mcg (0.1 %) nasal 1 spray intranasal BID 05/15/22 01/03/24 spray aerosol melatonin 5 mg tablet 5 mg PO HS 05/15/22 08/12/23 anastrozole 1 mg tablet 1 mg PO QAM 07/22/22 01/03/24 metoprolol succinate 50 mg 50 mg PO QAM 07/22/22 08/12/23 tablet,extended release 24 hr albuterol sulfate 90 mcg/actuation 1 - 2 puff inhalation Q6H PRN SOB 05/12/23 07/31/23 aerosol inhaler or wheezing aripiprazole 10 mg tablet 10 mg PO HS 05/12/23 08/12/23 gabapentin 300 mg capsule 300 mg PO TID 05/12/23 01/03/24 lamotrigine 200 mg tablet 200 mg PO QAM 05/12/23 01/03/24 trazodone 100 mg tablet 100 mg PO HS 05/12/23 01/03/24 disulfiram 250 mg tablet 250 mg PO QAM 07/31/23 01/03/24 folic acid 5 mg-vitamin B complex 1 tab PO QAM 07/31/23 08/12/23 with C no.17 tablet naltrexone microspheres 380 mg 380 mg IM MONTHLY 07/31/23 07/31/23 intramuscular suspension,extended release (Vivitrol) pantoprazole 40 mg tablet,delayed 40 mg PO HS 07/31/23 01/03/24 release disulfiram 250 mg tablet 250 mg PO DAILY 08/12/23 08/12/23 benztropine 0.5 mg tablet mg 01/03/24 cariprazine 1.5 mg capsule 1.5 mg PO 1XD 01/03/24 01/03/24 (Vraylar) medroxyprogesterone 10 mg tablet mg 01/03/24 naltrexone 50 mg tablet 50 mg PO 2XD 01/03/24 01/03/24 propranolol 10 mg tablet 20 mg PO 2XD 01/03/24 01/03/24 Previous Rx's Medication Instructions Recorded meclizine 25 mg tablet 25 mg PO TID PRN dizziness #14 tabs 11/19/23 Results & Data (ED) Vital Signs Vital Signs - 24 hr 01/03/24 13:42 01/03/24 15:35 01/03/24 22:23 Temperature 36.8 C Temperature Source Temporal Artery Scan Pulse Rate 126 H Pulse Rate [Finger] 78 62 Respiratory Rate 20 16 16 Respiratory Effort / Characteristics Non-Labored Spontaneous Non-Labored Spontaneous Respiratory Depth Normal Normal Respiratory Pattern Regular Regular Blood Pressure 133/88 Blood Pressure [Right Arm] 126/68 125/83 Blood Pressure Mean 103 Blood Pressure Mean [Right Arm] 87 97 Blood Pressure Position [Right Arm] Lying Pulse Oximetry 96 97 99 Oxygen Delivery Method Room Air Room Air Room Air Sepsis Recent Fever Within 48 Hours No Sepsis New/Unexplained Change in Mental Status No Sepsis Action Taken by Nursing No Action Required Laboratory Data 01/03/24 14:26 01/03/24 14:26 Lab Results 01/03/24 01/03/24 01/03/24 Range/Units 14:26 15:50 18:32 WBC 8.83 (4.8-10.8) K/ul RBC 3.93 L (4.20-5.40) M/uL Hgb 11.7 L (12.0-16.0) g/dl Hct 36.0 L (37.0-47.0) % MCV 91.6 (80.0-100.0) fL MCH 29.8 (25.0-34.0) pg MCHC 32.5 (32.0-36.0) g/dL RDW Std Deviation 42.5 (36.4-46.3) fL RDW Coeff of Marybeth 12.7 (11.5-14.5) % Plt Count 349 (130-400) K/uL MPV 9.0 L (9.4-12.4) fL Immature Gran % (Auto) 0.2 % Neut % (Auto) 65.0 % Lymph % (Auto) 20.2 % [place] % (Auto) 11.8 % Eos % (Auto) 2.2 % Baso % (Auto) 0.6 % Neut # (Auto) 5.75 (1.40-6.50) K/uL Lymph # (Auto) 1.78 (1.20-3.40) K/uL [place] # (Auto) 1.04 H (0.11-0.59) K/uL Eos # (Auto) 0.19 (0.00-0.50) K/uL Baso # (Auto) 0.05 (0.00-0.20) K/uL Immature Gran # (Auto) 0.02 (0.01-0.20) K/uL Sodium 139 (136-145) mmol/L Potassium 4.4 (3.5-5.1) mmol/L Chloride 105 (98-107) mmol/L Carbon Dioxide 28 (21-32) mmol/L Anion Gap 6 (3-11) BUN 16 (6-23) mg/dl Creatinine 0.88 (0.6-1.2) mg/dl Est Cr Clr Drug Dosing 75.3 ml/min Est GFR ( Amer) 85.1 ml/min Est GFR (Non-Af Amer) 73.4 ml/min BUN/Creatinine Ratio 18.2 (10-20) Glucose 110 H (70-99(Fasting)) mg/dl Calcium 8.8 (8.6-10.3) mg/dl Total Bilirubin 0.3 (0.2-1.0) mg/dl AST 12 L (13-39) U/L ALT 11 (7-52) U/L Alkaline Phosphatase 53 (34-104) U/L Troponin I High Sens 2.8 (0-14) pg/ml Total Protein 6.2 (6.0-8.3) gm/dl Albumin 3.9 (3.4-5.0) gm/dl Globulin 2.3 L (2.5-4.0) gm/dl Albumin/Globulin Ratio 1.7 (0.9-2) TSH 2.017 (0.300-4.500) uIu/ml Urine Color Yellow Urine Appearance Turbid A (Clear) Urine pH 7.5 (4.5-7.5) Ur Specific [place] 1.024 (1.000-1.030) Urine Protein Negative (Negative) Urine Glucose (UA) Negative (Negative) Urine Ketones Negative (Negative) Urine Blood 2+ H (Negative) Urine Nitrite Negative (Negative) Urine Bilirubin Negative (Negative) Urine Urobilinogen Negative (Negative) Ur Leukocyte Esterase 3+ H (Negative) Urine WBC (Auto) >30 H (0-5) /hpf Urine RBC (Auto) 5-10 H (0-4) /hpf U Hyaline Cast (Auto) 1-5 (0-5) /lpf U Epithel Cells (Auto) >30 H (0-5) /lpf Urine Bacteria (Auto) Negative (Negative) Salicylates < 3.0 L (3.0-30) mg/dl Urine Opiates Screen Neg (Neg) Ur Methadone, Qual Neg (Neg) Acetaminophen < 3 L (10-30) ug/ml Urine Barbiturates Neg (Neg) Ur Phencyclidine (PCP) Neg (Neg) U Amphetamin/Meth Scrn Neg (Neg) MDMA (Ecstasy) Screen Pos H (Neg) U Benzodiazepines Scrn Neg (Neg) Ur Cocaine Metabolite Neg (Neg) U Marijuana (THC) Screen Neg (Neg) Ethyl Alcohol mg/dL < 10.0 (<10.0) mg/dl SARS-CoV-2, RNA, NAAT NEGATIVE (NEGATIVE) Administered Medications Discontinued Medications Al Hydrox/Mg Hydrox/Simethicone (Aluminum/Magnesium Susp 30 Ml Udc) 15 ml PO NOW STA Stop: 01/03/24 14:18 Last Admin: 01/03/24 15:46 Dose: Not Given Documented By: YOLI Imaging Data Radiologist's Impression: Chest X-Ray 01/03/24 14:17 XR chest 1V portable CLINICAL HISTORY: Atypical chest pain. COMPARISON STUDY: Chest radiograph November 19, 2023. FINDINGS: Lung volumes are normal. Lungs are clear. There is no pneumothorax or pleural effusion. Cardiac size is normal. Mediastinal contours are normal. There is no evidence for pulmonary edema. IMPRESSION: No acute cardiopulmonary findings. ACT 112: Negative or not required by law. Electronically signed by: Brad Garzon M.D. 01/03/2024 3:20 PM Discharge Plan Visit Data Chief Complaint: Mental Health Evaluation Stated Complaint: SHARON ED Provider: Gisella Heredia Discharge Problem: Noncompliance with medication regimen, GERD (gastroesophageal reflux disease), Anxiety, Bipolar disorder Forms Stand Alone Forms: My [facility], Suicide Prevention Resources Prescriptions Prescriptions: No Action azelastine 137 mcg (0.1 %) aerosol,spray 1 spray intranasal BID Rx Instructions: administer into each nostril melatonin 5 mg tablet 5 mg PO HS lamotrigine 200 mg tablet 200 mg PO QAM trazodone 100 mg tablet 100 mg PO HS gabapentin 300 mg capsule 300 mg PO TID albuterol sulfate 90 mcg/actuation HFA aerosol inhaler 1 - 2 puff INHALATION Q6H PRN (Reason: SOB or wheezing) aripiprazole 10 mg tablet 10 mg PO HS atorvastatin 20 mg Tablet 20 mg PO HS cetirizine [Zyrtec] 10 mg Tablet 10 mg PO QAM fluticasone propionate 50 mcg/actuation [place],Suspension 1 spray INTRANASAL BID anastrozole 1 mg tablet 1 mg PO QAM metoprolol succinate 50 mg tablet extended release 24 hr 50 mg PO QAM Vivitrol 380 mg Suspension,Extended Rel Recon 380 mg IM MONTHLY folic acid-B complex,C no.17 5 mg Tablet 1 tab PO QAM disulfiram 250 mg tablet 250 mg PO QAM pantoprazole 40 mg tablet,delayed release (DR/EC) 40 mg PO HS disulfiram 250 mg Tablet 250 mg PO DAILY meclizine 25 mg tablet 25 mg PO TID PRN (Reason: dizziness) Qty: 14 0RF naltrexone 50 mg tablet 50 mg PO 2XD Vraylar 1.5 mg capsule 1.5 mg PO 1XD propranolol 10 mg tablet 20 mg PO 2XD medroxyprogesterone 10 mg tablet benztropine 0.5 mg tablet Referrals Referrals: Kanika Walton, DO [Primary Care Provider] -
[2024-01-03 14:56] LABS: Basophils # (auto) 0.05 K/uL (0.00-0.20); Basophils % (auto) 0.6 %; Eosinophils # (auto) 0.19 K/uL (0.00-0.50); Eosinophils % (auto) 2.2 %; Hemoglobin 11.7 g/dl (12.0-16.0); Immature Granulocytes # (auto) 0.02 K/uL (0.01-0.20); Immature Granulocytes % (auto) 0.2 %; Lymphocytes # (auto) 1.78 K/uL (1.20-3.40); Lymphocytes % (auto) 20.2 %; Mean Corpuscular Hemoglobin 29.8 pg (25.0-34.0); Mean Corpuscular Hgb Conc 32.5 g/dL (32.0-36.0); Mean Corpuscular Volume 91.6 fL (80.0-100.0); Monocytes # (auto) 1.04 K/uL (0.11-0.59); Monocytes % (auto) 11.8 %; Neutrophils # (auto) 5.75 K/uL (1.40-6.50); Platelet Count 349 K/uL (130-400); RDW Coefficient of Variation 12.7 % (11.5-14.5); RDW Standard Deviation 42.5 fL (36.4-46.3); Red Blood Count 3.93 M/uL (4.20-5.40); White Blood Count 8.83 K/ul (4.8-10.8)
[2024-01-03 15:08] LABS: Albumin Globulin Ratio 1.7 (0.9-2); Albumin Level 3.9 gm/dl (3.4-5.0); BUN Creatinine Ratio 18.2 (10-20); Bilirubin,Total 0.3 mg/dl (0.2-1.0); Calcium 8.8 mg/dl (8.6-10.3); Creatinine Clr Calc Pharmacy 75.3 ml/min; Est GFR (African American) 85.1 ml/min; Est GFR (Non-African American) 73.4 ml/min; Globulin 2.3 gm/dl (2.5-4.0); Potassium 4.4 mmol/L (3.5-5.1); Total Protein 6.2 gm/dl (6.0-8.3)
[2024-01-03 15:12] LABS: Acetaminophen < 3 ug/ml (10-30); Salicylate < 3.0 mg/dl (3.0-30)
[2024-01-03 15:14] LABS: Troponin I High Sensitivity 2.8 pg/ml (0-14)
--- NOTE | 2024-01-03 15:21 | XRay Report ---
XR chest 1V portable CLINICAL HISTORY: Atypical chest pain. COMPARISON STUDY: Chest radiograph November 19, 2023. FINDINGS: Lung volumes are normal. Lungs are clear. There is no pneumothorax or pleural effusion. Car diac size is normal. Mediastinal contours are normal. There is no evidence for pulmonary edema. IMPRESSION: No acute cardiopulmonary findings. ACT 112: Negative or not required by law. Electronically signed by: Brad Garzon M.D. 01/03/2024 3:20 PM
[2024-01-03 15:23] LABS: Thyroid Stimulating Hormone 2.017 uIu/ml (0.300-4.500)
[2024-01-03] MEDS: ALUMINUM/MAGNESIUM SUSP 30 ML UDC PO STA (15:46)
--- NOTE | 2024-01-03 16:56 | Electrocardiogram Report ---
Test Reason : Blood Pressure : / mmHG Vent. Rate : 087 BPM Atrial Rate : 087 BPM P-R Int : 152 ms QRS Dur : 088 ms QT Int : 368 ms P-R-T Axes : 065 052 067 degrees QTc Int : 442 ms Normal sinus rhythm Normal ECG When compared with ECG of 19-NOV-2023 10:01, No significant change was found Confirmed by Mario Sarah ([id number]) on 01/03/2024 4:56:35 PM Referred By: REFERRED SELF Confirmed By:Franck Sarah
[2024-01-03 19:12] LABS: Appearance Urine Turbid (Clear); Bacteria Urine Automated Negative (Negative); Bilirubin Urine Negative (Negative); Blood Urine 2+ (Negative); Color Urine Yellow; Epithelial Cell Urine Auto >30 /lpf (0-5); Glucose Urine UA Negative (Negative); Ketones Urine Negative (Negative); Leukocyte Esterase Urine 3+ (Negative); Nitrite Urine Negative (Negative); Protein Urine Negative (Negative); Specific Gravity Urine 1.024 (1.000-1.030); Urobilinogen Urine Negative (Negative); WBC Urine Automated >30 /hpf (0-5); pH Urine 7.5 (4.5-7.5)
[2024-01-03 19:39] LABS: Amphetamines+Metham, Urine Neg (Neg); Barbiturates, Urine Neg (Neg); Benzodiazepine, Urine Neg (Neg); Cocaine, Urine Neg (Neg); MDMA (Ecstacy), Urine Pos (Neg); Marijuana, Urine Neg (Neg); Methadone, Urine Neg (Neg); Opiate, Urine Neg (Neg); Phencyclidine, Urine Neg (Neg)
[2024-01-03] MEDS ORDERED: BISMUTH SUBSALICYLATE LIQD 236 ML PO PRN (22:23)
[2024-01-03] MEDS ORDERED: MAGNESIUM HYDROXIDE SUSP 30 ML UDC PO PRN (22:23)
[2024-01-03] MEDS ORDERED: ALUMINUM/MAGNESIUM SUSP 30 ML UDC PO PRN (22:23)
[2024-01-03] MEDS ORDERED: SODIUM CHLORIDE 0.65% NA SOLN 45 ML (OCEAN) PRN (22:23)
[2024-01-03] MEDS ORDERED: MECLIZINE HCL 25 MG TAB PO PRN (22:28)
[2024-01-04] MEDS: hydrOXYzine HCl 25 MG TAB PO PRN (00:08)
[2024-01-04] MEDS: medroxyPROGESTERone ACETATE 10 MG TAB PO SCH (00:09)
[2024-01-04] MEDS: ATORVASTATIN 20 MG TAB PO SCH (00:09)
[2024-01-04] MEDS ORDERED: PANTOprazole 40 MG TAB PO SCH (09:00)
[2024-01-04] MEDS: ANASTROZOLE 1 MG TAB PO SCH (09:24)
[2024-01-04] MEDS: FOLIC ACID 1 MG TAB PO SCH (09:24)
[2024-01-04] MEDS: FLUTICASONE PROPIONATE NA SPR 16 GM BTL SCH (09:24)
[2024-01-04] MEDS: DISULFIRAM PO SCH (09:25)
[2024-01-04] MEDS: VITAMIN B COMPLEX TAB PO SCH (09:25)
[2024-01-04] MEDS: PANTOprazole 40 MG TAB PO SCH (09:25)
[2024-01-04] MEDS: lamoTRIgine 100 MG TAB PO SCH ×2 (10:18→15:28)
[2024-01-04] MEDS: CETIRIZINE HCL 10 MG TABLET PO SCH (11:30)
[2024-01-04] MEDS ORDERED: GABAPENTIN 300 MG CAP PO SCH (14:00)
[2024-01-04] MEDS ORDERED: GABAPENTIN 100 MG CAP PO SCH (14:00)
[2024-01-04] MEDS ORDERED: GABAPENTIN 400 MG CAP PO SCH (14:00)
[2024-01-04] MEDS: GABAPENTIN 100 MG CAP PO SCH (14:34)
[2024-01-04] MEDS: GABAPENTIN 400 MG CAP PO SCH (14:34)
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
[2024-01-04] MEDS: lamoTRIgine 25 MG TAB PO SCH (20:33)
[2024-01-04] MEDS: traZODone HCL 100 MG TAB PO SCH (20:34)
[2024-01-04] MEDS ORDERED: ATORVASTATIN 20 MG TAB PO SCH (21:00)
[2024-01-04] MEDS ORDERED: traZODone HCL 100 MG TAB PO SCH (21:00)
[2024-01-05] MEDS ORDERED: lamoTRIgine 100 MG TAB PO SCH (09:00)
[2024-01-05] MEDS: ACETAMINOPHEN 325 MG TAB PO PRN (09:25)
[2024-01-05] MEDS: cephALEXin 500 MG CAP PO SCH (11:49)
--- NOTE | 2024-01-05 17:01 | Psychiatric Progress Note ---
Date of Service January 05, 2024 Impression / Recommendations Impression 58 yo female with intermittent SI (endorsed passive in ED then since denied), decline in functioning due to anxiety/overwhelm of managing stressors (by her own admisome of them self imposed due to past alcohol abuse) 6 months into sobriety. Overall, I spent a total of 36 minutes with this case, including review of chart, direct evaluation of the patient, counseling the patient, ordering medication, coordination with nursing,and documentation. (1) Bipolar disorder: (2) Anxiety: (3) Alcohol dependence in remission: Plan 01/05/24: course of Keflex as above. Dizziness from lamictal is almost resolved on lower dose. 01/04/24: The patient was admitted to the [facility] ([facility] mental health unit) on q15 min checks (behavioral with suicide precautions) for safety. The patient will participate in group, recreational, and milieu therapies and will be offered additional individual and family sessions as clinically appropriate. Patient will be moved from obs checks to suicide checks. Although she continues to deny active SI she is easily overwhelmed and had difficulty verbalizing feelings to staff given her level of anxiety. Risks/benefits/alternatives reviewed re: current medications. Will titrate gabapentin on a trial basis. Has been taking Lamictal 100 mg am and 200 mg hs. Will decrease due to presumed side effects hs dose of 150 mg. Will discuss Vraylar trial when anxiety is under better control. 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 Chief Complaint "yesterday went better but, now I have this pain." Review of Systems Sleep Information Total Hours of Sleep: 8.5 Sleep Comments: Had Trazodone at HS Meal Information Percent Meal Consumed - Breakfast: 100 Percent Meal Consumed - Lunch: 100 Percent Meal Consumed - Dinner: 25 Subjective Subjective Patient was seen & assessed and interval progress reviewed with nursing and social work. Patient repoorts significant improvement in her anxiety last pm and feels like sleep improved. She feels less anxious as less dizziness. She repor rajat onset of recurrence of ?pilonidal cyst posterior to her feminie hygiene pad along right buttock. Patient was examined with nurse Murray as witness. She has some fluctuant swelling, size of a julio which was no more tender on touch, without erythema or discharge. She reports similar improved before with warm compresses and antibiotics thought has had I&D. I see no indication for hospitalist consult at this time, confirmed no allergy to Keflex with good tolerability in the past. Physical Exam Psychiatric Orientation: alert and oriented x 3 Apperance: appropriately dressed and appropriately groomed Eye Contact: good eye contact Motor Behavior: no abnormal motor movements Speech: normal rate/rhythm/volume of speech Affect: euthymic affect Mood: + depressed mood Thought Process: goal directed thought process Thought Content: reality based without delusions Suicidal Thoughts: denies suicidal thoughts Homicidal Thoughts: denies homicidal thoughts Hallucinations: no auditory hallucinations and no visual hallucinations Cognition: attention grossly intact and language grossly intact Estimated Intelligence: consistent with education level Insight: + limited insight Judgment: + limited judgement Vital Signs (Past 24 Hours) Last Vital Signs Temp 37.1 C 01/05/24 06:28 Pulse 84 01/05/24 06:29 Resp 16 01/05/24 06:28 BP 146/91 H 01/05/24 06:29 Pulse Ox 100 01/04/24 01:50 O2 Del Method Room Air 01/04/24 01:50 Results & Data ([facility]) Current Inpatient Medications Current Inpatient Medications: Current Inpatient Medications Acetaminophen (Acetaminophen 325 Mg Tab) 650 mg PO Q4H PRN PRN Reason: Headache or Minor Fever Stop: 02/02/24 22:22 Last Admin: 01/05/24 09:25 Dose: 650 mg Al Hydrox/Mg Hydrox/Simethicone (Aluminum/Magnesium Susp 30 Ml Udc) 30 ml PO Q4H PRN PRN Reason: GI Upset Stop: 02/02/24 22:22 Anastrozole (Anastrozole 1 Mg Tab) 1 mg PO QAM [facility] Stop: 02/03/24 08:59 Last Admin: 01/05/24 09:19 Dose: 1 mg Atorvastatin Calcium (Atorvastatin 20 Mg Tab) 20 mg PO HS [facility] Stop: 02/02/24 22:39 Last Admin: 01/04/24 20:33 Dose: 20 mg Bismuth Subsalicylate (Bismuth Subsalicylate Liqd 236 Ml) 15 ml PO PRN PRN PRN Reason: Loose Stool Stop: 02/02/24 22:22 Cephalexin HCl (Cephalexin 500 Mg Cap) 500 mg PO BID [facility]; Protocol Stop: 01/12/24 11:29 Last Admin: 01/05/24 11:49 Dose: 500 mg Cetirizine HCl (Cetirizine Hcl 10 Mg Tablet) [facility] [place] Stop: 02/03/24 10:14 Last Admin: 01/05/24 09:16 Dose: 10 mg Fluticasone Propionate (Fluticasone Propionate Na Spr 16 Gm Btl) 1 sprays NA DAILY [facility] Stop: 02/03/24 08:59 Last Admin: 01/05/24 09:15 Dose: 1 sprays Folic Acid (Folic Acid 1 Mg Tab) 1 mg PO QAM [facility] Stop: 02/03/24 08:59 Last Admin: 01/05/24 09:17 Dose: 1 mg Gabapentin (Gabapentin 100 Mg Cap) 100 mg PO TID [facility] Stop: 02/03/24 10:14 Last Admin: 01/05/24 14:19 Dose: 100 mg Gabapentin (Gabapentin 400 Mg Cap) 400 mg PO TID [facility] Stop: 02/03/24 10:14 Last Admin: 01/05/24 14:20 Dose: 400 mg Hydroxyzine HCl (Hydroxyzine Hcl 25 Mg Tab) 50 mg PO HSZ PRN PRN Reason: Insomnia Stop: 02/02/24 22:22 Last Admin: 01/04/24 00:08 Dose: 50 mg Hydroxyzine HCl (Hydroxyzine Hcl 25 Mg Tab) 25 mg PO Q4H PRN PRN Reason: Anxiety Stop: 02/02/24 22:22 Lamotrigine (Lamotrigine 25 Mg Tab) 150 mg PO [facility]; Protocol Stop: 02/03/24 21:59 Last Admin: 01/04/24 20:33 Dose: 150 mg Lamotrigine (Lamotrigine 100 Mg Tab) [facility] [place]; Protocol Stop: 02/03/24 09:59 Last Admin: 01/05/24 09:17 Dose: 100 mg Magnesium Hydroxide (Magnesium Hydroxide Susp 30 Ml Udc) 30 ml PO DAILY PRN PRN Reason: Constipation Stop: 02/02/24 22:22 Meclizine HCl (Meclizine Hcl 25 Mg Tab) 25 mg PO TID PRN PRN Reason: dizziness Stop: 02/02/24 22:27 Disulfiram~Non- Formulary Patient's Own Med 1 each PO DAILY [facility] Stop: 02/03/24 08:59 Last Admin: 01/05/24 09:19 Dose: 1 each Pantoprazole Sodium (Pantoprazole 40 Mg Tab) 40 mg PO BID [facility] Stop: 02/02/24 22:39 Last Admin: 01/05/24 09:17 Dose: 40 mg Sodium Chloride (Sodium Chloride 0.65% Na Soln 45 Ml ([place])) 1 - 2 sprays NA PRN PRN PRN Reason: Nasal Dryness/Congestion Stop: 02/02/24 22:22 Trazodone HCl (Trazodone Hcl 100 Mg Tab) 100 mg PO HS [facility] Stop: 02/02/24 22:39 Last Admin: 01/04/24 20:34 Dose: 100 mg Vitamin B Complex (Vitamin B Complex Tab) 1 tab PO QAM [facility] Stop: 02/03/24 08:59 Last Admin: 01/05/24 09:16 Dose: 1 tab Mental Health & Subst Abuse Tx Psychiatrist Name of Psychiatrist: Lizeth Mancilla Psychiatrist's Date Of Appointment With Psychiatric Provider: 01/12/24 Time of Appointment with Psychiatrist: 9:15am Therapist Name of Therapist: Leida @ [place] Therapist's Therapy Appointment Comment: Tuesdays at 1:00pm, Fridays at 10:00am Belt Sewer Name of Belt Sewer: None Post Discharge Appointments Primary Care Physician Name Of Family Doctor/PCP: Dr. Walton [facility] Date of Future Appointment with PCP: 01/20/24 Time of Appointment with PCP: 1:45pm Provider Appointment Comment: Dr. Kanika Walton @ [facility] location (rescheduled from 01/08)
[2024-01-05] MEDS: hydrOXYzine HCl 25 MG TAB PO PRN (17:49)
--- NOTE | 2024-01-06 11:38 | Psychiatric Progress Note ---
Date of Service January 06, 2024 Impression / Recommendations Impression 58 yo female with intermittent SI (endorsed passive in ED then since denied), decline in functioning due to anxiety/overwhelm of managing stressors (by her own admisome of them self imposed due to past alcohol abuse) 6 months into sobriety. Overall, I spent a total of 35 minutes with this case, including review of chart, direct evaluation of the patient, counseling the patient, ordering medication, coordination with staff, and documentation. (1) Bipolar disorder: (2) Anxiety: (3) Alcohol dependence in remission: Plan 01/06/24: patient declined a trial of buspar in place of Vistaril. Patient willing to continue Neurontin but only at 200 mg TID. needs meeting with sister 01/05/24: course of Keflex as above. Dizziness from lamictal is almost resolved on lower dose. 01/04/24: The patient was admitted to the [facility] ([facility] unit) on q15 min checks (behavioral with suicide precautions) for safety. The patient will participate in group, recreational, and milieu therapies and will be offered additional individual and family sessions as clinically appropriate. Patient will be moved from obs checks to suicide checks. Although she continues to deny active SI she is easily overwhelmed and had difficulty verbalizing feelings to staff given her level of anxiety. Risks/benefits/alternatives reviewed re: current medications. Will titrate gabapentin on a trial basis. Has been taking Lamictal 100 mg am and 200 mg hs. Will decrease due to presumed side effects hs dose of 150 mg. Will discuss Vraylar trial when anxiety is under better control. 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 Chief Complaint "I'm really dizzy today, feeling like hurting myself but nothing I would do here." Review of Systems Sleep Information Total Hours of Sleep: 8 Sleep Comments: Had Trazodone at HS Meal Information Percent Meal Consumed - Breakfast: 100 Percent Meal Consumed - Lunch: 100 Percent Meal Consumed - Dinner: 100 Subjective Subjective Patient was seen & assessed and interval progress reviewed with treatment team. The patient received Vistaril around 3:30 am and woke up with more tremor and no longer wants to continue higher dose of Neurontin though may or may not be related. She notes decreased pain and swelling in her buttock since starting antibiotic. Patient became overwhelmed discussing her projected decrease in income in July and perception she will need to declare bankruptcy, then abruptly ended interview to return to bed. Physical Exam Psychiatric Orientation: alert and oriented x 3 Apperance: appropriately dressed and appropriately groomed Eye Contact: good eye contact Motor Behavior: no abnormal motor movements Speech: normal rate/rhythm/volume of speech Affect: + depressed affect Mood: + depressed mood and + anxious mood Thought Process: goal directed thought process Thought Content: reality based without delusions Suicidal Thoughts: denies suicidal thoughts Homicidal Thoughts: denies homicidal thoughts Hallucinations: no auditory hallucinations and no visual hallucinations Cognition: attention grossly intact and language grossly intact Estimated Intelligence: consistent with education level Insight: + limited insight Judgment: + limited judgement Vital Signs (Past 24 Hours) Last Vital Signs Temp 36.5 C 01/06/24 06:40 Pulse 82 01/06/24 06:41 Resp 16 01/06/24 06:40 BP 136/91 01/06/24 06:41 Pulse Ox 100 01/04/24 01:50 O2 Del Method Room Air 01/04/24 01:50 Results & Data ([facility]) Current Inpatient Medications Current Inpatient Medications: Current Inpatient Medications Acetaminophen (Acetaminophen 325 Mg Tab) 650 mg PO Q4H PRN PRN Reason: Headache or Minor Fever Stop: 02/02/24 22:22 Last Admin: 01/05/24 18:20 Dose: 650 mg Al Hydrox/Mg Hydrox/Simethicone (Aluminum/Magnesium Susp 30 Ml Udc) 30 ml PO Q4H PRN PRN Reason: GI Upset Stop: 02/02/24 22:22 Anastrozole (Anastrozole 1 Mg Tab) 1 mg PO QAM [facility] Stop: 02/03/24 08:59 Last Admin: 01/06/24 08:34 Dose: 1 mg Atorvastatin Calcium (Atorvastatin 20 Mg Tab) 20 mg PO HS [facility] Stop: 02/02/24 22:39 Last Admin: 01/05/24 20:34 Dose: 20 mg Bismuth Subsalicylate (Bismuth Subsalicylate Liqd 236 Ml) 15 ml PO PRN PRN PRN Reason: Loose Stool Stop: 02/02/24 22:22 Cephalexin HCl (Cephalexin 500 Mg Cap) 500 mg PO BID [facility]; Protocol Stop: 01/12/24 11:29 Last Admin: 01/06/24 08:34 Dose: 500 mg Cetirizine HCl (Cetirizine Hcl 10 Mg Tablet) 10 mg PO QAM [facility] Stop: 02/03/24 10:14 Last Admin: 01/06/24 08:34 Dose: 10 mg Fluticasone Propionate (Fluticasone Propionate Na Spr 16 Gm Btl) 1 sprays NA DAILY [facility] Stop: 02/03/24 08:59 Last Admin: 01/06/24 08:40 Dose: 1 sprays Folic Acid (Folic Acid 1 Mg Tab) 1 mg PO QAM [facility] Stop: 02/03/24 08:59 Last Admin: 01/06/24 08:34 Dose: 1 mg Gabapentin (Gabapentin 100 Mg Cap) 200 mg PO TID [facility] Stop: 02/05/24 13:59 Hydroxyzine HCl (Hydroxyzine Hcl 25 Mg Tab) 50 mg PO HSZ PRN PRN Reason: Insomnia Stop: 02/02/24 22:22 Last Admin: 01/04/24 00:08 Dose: 50 mg Hydroxyzine HCl (Hydroxyzine Hcl 25 Mg Tab) 25 mg PO Q4H PRN PRN Reason: Anxiety Stop: 02/02/24 22:22 Last Admin: 01/06/24 03:30 Dose: 25 mg Lamotrigine (Lamotrigine 25 Mg Tab) 150 mg PO HS [facility]; Protocol Stop: 02/03/24 21:59 Last Admin: 01/05/24 20:35 Dose: 150 mg Lamotrigine (Lamotrigine 100 Mg Tab) 100 mg PO QAM [facility]; Protocol Stop: 02/03/24 09:59 Last Admin: 01/06/24 08:41 Dose: 100 mg Magnesium Hydroxide (Magnesium Hydroxide Susp 30 Ml Udc) 30 ml PO DAILY PRN PRN Reason: Constipation Stop: 02/02/24 22:22 Meclizine HCl (Meclizine Hcl 25 Mg Tab) 25 mg PO TID PRN PRN Reason: dizziness Stop: 02/02/24 22:27 Disulfiram~Non- Formulary Patient's Own Med 1 each PO DAILY [facility] Stop: 02/03/24 08:59 Last Admin: 01/06/24 08:40 Dose: 1 each Pantoprazole Sodium (Pantoprazole 40 Mg Tab) 40 mg PO HS [facility] Stop: 02/05/24 21:59 Sodium Chloride (Sodium Chloride 0.65% Na Soln 45 Ml ([place])) 1 - 2 sprays NA PRN PRN PRN Reason: Nasal Dryness/Congestion Stop: 02/02/24 22:22 Trazodone HCl (Trazodone Hcl 100 Mg Tab) 100 mg PO HS [facility] Stop: 02/02/24 22:39 Last Admin: 01/05/24 20:38 Dose: 100 mg Vitamin B Complex (Vitamin B Complex Tab) 1 tab PO QAM [facility] Stop: 02/03/24 08:59 Last Admin: 01/06/24 08:34 Dose: 1 tab Mental Health & Subst Abuse Tx Psychiatrist Name of Psychiatrist: Lizeth Mancilla Psychiatrist's Date Of Appointment With Psychiatric Provider: 01/12/24 Time of Appointment with Psychiatrist: 9:15am Therapist Name of Therapist: Leida Oneil [place] Therapist's Therapy Appointment Comment: Tuesdays at 1:00pm, Fridays at 10:00am Casting Machine Operator Helper Name of Casting Machine Operator Helper: None Post Discharge Appointments Primary Care Physician Name Of Family Doctor/PCP: Dr. Walton Primary [facility] Date of Future Appointment with PCP: 01/20/24 Time of Appointment with PCP: 1:45pm Provider Appointment Comment: Dr. Kanika Walton @ [facility] location (rescheduled from 01/08)
[2024-01-06] MEDS: GABAPENTIN 100 MG CAP PO SCH (13:09)
[2024-01-06] MEDS: PANTOprazole 40 MG TAB PO SCH (21:44)
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
[2024-01-07] MEDS: GABAPENTIN 100 MG CAP PO SCH (14:04)
[2024-01-07 15:32] LABS: MDA negative; MDEA negative; MDMA (Ecstasy) Urine, Confirm negative
[2024-01-07] MEDS: lamoTRIgine 100 MG TAB PO SCH (20:30)
[2024-01-08] MEDS ORDERED: traZODone HCL 50 MG TAB PO PRN (13:08)
[2024-01-08] MEDS ORDERED: busPIRone 5 MG TAB PO PRN (13:09)
--- NOTE | 2024-01-08 13:35 | Psychiatric Progress Note ---
Date of Service January 08, 2024 Impression / Recommendations Impression 58 yo female with intermittent SI (endorsed passive in ED then since denied), decline in functioning due to anxiety/overwhelm of managing stressors (by her own admisome of them self imposed due to past alcohol abuse) 6 months into sobriety. Overall, I spent a total of 35 minutes with this case, including review of chart, direct evaluation of the patient, counseling the patient, ordering medication, coordination with staff, and documentation. (1) Bipolar disorder: (2) Anxiety: (3) Alcohol dependence in remission: Plan 01/08/24: d/c prn Vistaril as seems to have anticholinergic side effects. Patient requesting increase in trazodone. She is still undecided re: trial of Vraylar. 01/07/24: decrease Neurontin to 100 mg TID, she now states was taking only 300 mg BID at home rather than as prescribed. Desires decrease in Lamictal to 100 mg BID. Consider Vraylar if evidence of lability as lamictal decreases. 01/06/24: patient declined a trial of buspar in place of Vistaril. Patient willing to continue Neurontin but only at 200 mg TID. needs meeting with sister 01/05/24: course of Keflex as above. Dizziness from lamictal is almost resolved on lower dose. 01/04/24: The patient was admitted to the [facility] ([facility]) on q15 min checks (behavioral with suicide precautions) for safety. The patient will participate in group, recreational, and milieu therapies and will be offered additional individual and family sessions as clinically appropriate. Patient will be moved from obs checks to suicide checks. Although she continues to deny active SI she is easily overwhelmed and had difficulty verbalizing feelings to staff given her level of anxiety. Risks/benefits/alternatives reviewed re: current medications. Will titrate gabapentin on a trial basis. Has been taking Lamictal 100 mg am and 200 mg hs. Will decrease due to presumed side effects hs dose of 150 mg. Will discuss Vraylar trial when anxiety is under better control. 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 Chief Complaint "what are you saying?" Review of Systems Sleep Information Total Hours of Sleep: 6.75 Sleep Comments: Had Trazodone at HS Meal Information Percent Meal Consumed - Breakfast: 100 Percent Meal Consumed - Lunch: 75 Percent Meal Consumed - Dinner: 100 Subjective Subjective Patient was seen & assessed and interval progress reviewed with treatment team. Patient seems somewhat confused this am with increase in tremor, similar to presentation last time she took prn Vistaril overnight. She has word finding difficulties and returned to room and refused groups after breakfast. She denies dizziness at this time. Physical Exam Psychiatric Orientation: alert and oriented x 3 Apperance: appropriately dressed and + disheveled Eye Contact: good eye contact Motor Behavior: no abnormal motor movements Speech: normal rate/rhythm/volume of speech Affect: + depressed affect Mood: + depressed mood and + anxious mood Thought Process: + concrete thought process Thought Content: reality based without delusions Suicidal Thoughts: denies suicidal thoughts Homicidal Thoughts: denies homicidal thoughts Hallucinations: no auditory hallucinations and no visual hallucinations Cognition: language grossly intact; + attention not intact Estimated Intelligence: consistent with education level Insight: + limited insight Judgment: + limited judgement Vital Signs (Past 24 Hours) Last Vital Signs Temp 36.6 C 01/08/24 06:38 Pulse 98 H 01/08/24 06:42 Resp 16 01/08/24 06:38 BP 133/92 01/08/24 06:42 Pulse Ox 100 01/04/24 01:50 O2 Del Method Room Air 01/04/24 01:50 Results & Data ([facility]) Laboratory Results Laboratory Results - last 24 hr 01/03/24 18:32 Urine MDEA negative MDMA negative Urine MDMA negative Current Inpatient Medications Current Inpatient Medications: Current Inpatient Medications Acetaminophen (Acetaminophen 325 Mg Tab) 650 mg PO Q4H PRN PRN Reason: Headache or Minor Fever Stop: 02/02/24 22:22 Last Admin: 01/05/24 18:20 Dose: 650 mg Al Hydrox/Mg Hydrox/Simethicone (Aluminum/Magnesium Susp 30 Ml Udc) 30 ml PO Q4H PRN PRN Reason: GI Upset Stop: 02/02/24 22:22 Anastrozole (Anastrozole 1 Mg Tab) 1 mg PO QAM [facility] Stop: 02/03/24 08:59 Last Admin: 01/08/24 09:09 Dose: 1 mg Atorvastatin Calcium (Atorvastatin 20 Mg Tab) 20 mg PO HS [facility] Stop: 02/02/24 22:39 Last Admin: 01/07/24 20:31 Dose: 20 mg Bismuth Subsalicylate (Bismuth Subsalicylate Liqd 236 Ml) 15 ml PO PRN PRN PRN Reason: Loose Stool Stop: 02/02/24 22:22 Buspirone HCl (Buspirone 5 Mg Tab) 5 mg PO TID PRN PRN Reason: Anxiety Stop: 02/07/24 13:59 Cephalexin HCl (Cephalexin 500 Mg Cap) 500 mg PO BID [facility]; Protocol Stop: 01/12/24 11:29 Last Admin: 01/08/24 09:09 Dose: 500 mg Cetirizine HCl (Cetirizine Hcl 10 Mg Tablet) [facility] Stop: 02/03/24 10:14 Last Admin: 01/08/24 09:09 Dose: 10 mg Fluticasone Propionate (Fluticasone Propionate Na Spr 16 Gm Btl) 1 sprays NA DAILY [facility] Stop: 02/03/24 08:59 Last Admin: 01/08/24 09:10 Dose: 1 sprays Folic Acid (Folic Acid 1 Mg Tab) 1 mg PO QAM [facility] Stop: 02/03/24 08:59 Last Admin: 01/08/24 09:10 Dose: 1 mg Gabapentin (Gabapentin 100 Mg Cap) 100 mg PO TID [facility] Stop: 02/06/24 13:59 Last Admin: 01/08/24 09:10 Dose: 100 mg Lamotrigine (Lamotrigine 100 Mg Tab) 100 mg PO BID [facility]; Protocol Stop: 02/06/24 20:59 Last Admin: 01/08/24 09:11 Dose: 100 mg Magnesium Hydroxide (Magnesium Hydroxide Susp 30 Ml Udc) 30 ml PO DAILY PRN PRN Reason: Constipation Stop: 02/02/24 22:22 Meclizine HCl (Meclizine Hcl 25 Mg Tab) 25 mg PO TID PRN PRN Reason: dizziness Stop: 02/02/24 22:27 Disulfiram~Non- Formulary Patient's Own Med 1 each PO DAILY C[facility]ANDRA Stop: 02/03/24 08:59 Last Admin: 01/08/24 09:11 Dose: 1 each Pantoprazole Sodium (Pantoprazole 40 Mg Tab) 40 mg PO HS CASSANDRA Stop: 02/05/24 21:59 Last Admin: 01/07/24 20:33 Dose: 40 mg Sodium Chloride (Sodium Chloride 0.65% Na Soln 45 Ml ([place])) 1 - 2 sprays NA PRN PRN PRN Reason: Nasal Dryness/Congestion Stop: 02/02/24 22:22 Trazodone HCl (Trazodone Hcl 50 Mg Tab) 150 mg PO HS CASSANDRA Stop: 02/07/24 21:59 Trazodone HCl (Trazodone Hcl 50 Mg Tab) 50 mg PO HS PRN PRN Reason: Insomnia Stop: 02/07/24 21:59 Vitamin B Complex (Vitamin B Complex Tab) 1 tab PO QAM [facility]ANDRA Stop: 02/03/24 08:59 Last Admin: 01/08/24 09:11 Dose: 1 tab Mental Health & Subst Abuse Tx Psychiatrist Name of Psychiatrist: Lizeth Mancilla Psychiatrist's Date Of Appointment With Psychiatric Provider: 01/12/24 Time of Appointment with Psychiatrist: 9:15am Psychiatric Appointment Comment: [address] [place] [address] [facility] Therapy Appointment Comment: Tuesdays at 1:00pm, Fridays at 10:00am Cath Laboratory Technician Name of Cath Laboratory Technician: Sandy Phone Number for Cath Laboratory Technician: [phone] Date of Appointment with Cath Laboratory Technician: 01/20/24 Time of Appointment with Cath Laboratory Technician: 10:00 Case Management Appointment Comment: Sandy will come to your home on 01/20 Post Discharge Appointments Primary Care Physician Name Of Family Doctor/PCP: Dr. Walton Primary Care Date of Future Appointment with PCP: 01/20/24 Time of Appointment with PCP: 1:45pm Provider Appointment Comment: Dr. Kanika Walton @ [place] location (rescheduled from 01/08)
[2024-01-08] MEDS: traZODone HCL 50 MG TAB PO SCH (21:52)
[2024-01-09] MEDS: lamoTRIgine 25 MG TAB PO ONE (22:26)
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
[2024-01-10 06:23] VITALS: BP 152/100; PULSE 87; RESP 18; TEMP 98.1; O2SAT 100
[2024-01-10] MEDS: lamoTRIgine 100 MG TAB PO STA (12:19)
--- NOTE | 2024-01-10 13:33 | Discharge Summary ---
Date of Service January 10, 2024 History of Present Illness As per ED CM: Six months ago patient was admitted to the hospital for alcohol withdrawal. She has been sober since that time. However she reports increasing depression and anxiety since she stopped drinking, specifically in the past 4 weeks. She was experiencing dizziness and was seen by a neurologist on Dec 21. She was cleared by neurology and they recommended that her Lamicatal be decreased. Pt was not able to get in touch with her psychiatric provider, Lizeth at [facility] so she decreased her Lamictal on her own from 400 mg daily to 300 mg daily. She reports that did help her dizziness but she believes contributed to her MH decline. Pt reports thoughts of suicide on a regular basis and although she has no concrete plan, she is fearful that she may impulsively attempt suicide. She no longer feels safe at home. She lives alone but does have friends who are supportive. 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 She states she is now on disability due to mental health. She takes Trazadone for sleep and sleeps approx. 12 hours per day. She reports that she has serious phobias such as a fear of going upstairs in her home, she states she is afraid to get off of her couch and spends most of her time there. She has a long history of inpatient alcohol treatment and one psychiatric hospitalization in January of 2023 at [facility]. She has no hx of SA. She reports her anxiety level at all times to be 8/10. She sees two therapists at [facility], Filomena and Haley. Pt is seeking inpatient MH treatment today. The patient has been seen on several occasions by consult service during hospitalizations for alcohol withdrawal. Confirmed hx as documented by ED thought patient continues to deny active suicidal thoughts, just feelings of overwhelm and not feeling that her needs were being addressed. She hasn't been keeping up with her chores around the house and her roommate gave her notice that she plans to move out. Patient cannot afford her place without a roommate. She reports a history of almas--hypersexual, overspending which got her "kicked out" of a sober living facility in the past as was prior to being diagnosed with bipolar and was viewed as noncompliant. She reports minimal residual dizziness in the am with the decrease in Lamictal but was feeling more emotionally unstable. Physical Exam Psychiatric Patient is oriented to person, place, time and situation. Ms. Perla is appropriately dressed and groomed. Good Somewhat restless Delivered at a normal rate and rhythm. Her speech is spontaneous. Euthymic. "It is good today." Patient demonstrates tight associations and goal-directed thinking. No delusional material is identified in the patient's thought content. Defeatism and Projection are the most commonly used defense mechanisms. None. The patient reliably contracts for safety. She also demonstrates that she is conversant with her safety plan and is able to spontaneously provide the details, correctly. Patient reports that she has no thoughts of causing physical harm to the person or property of others. There were no perceptual disturbances no evidence. The patient's memory including recent, remote and immediate are grossly intact. Ms. Perla's intelligence is estimated to be above average, based upon her level of academic achievement, her fund of knowledge, and her vocabulary. Fair. Good Vital Signs (Past 24 Hours) Last Vital Signs Temp 36.7 C 01/10/24 12:52 Pulse 87 01/10/24 12:52 Resp 18 01/10/24 12:52 BP 152/100 H 01/10/24 12:52 Pulse Ox 100 01/10/24 12:52 O2 Del Method Room Air 01/10/24 06:19 Principal Diagnosis Bipolar 1 disorder. Psychiatric Data See daily stay summary. In short, safety was maintained and the patient was cooperative with care. Medication changes were tolerated well. A family session was held and safety plan was completed prior to discharge. Day of Discharge Assessment Today the patient voices readiness for discharge. She notes improvement in mood and deny thoughts to harm self or others. Thoughts remain organized and they are improved from admission. There is no evidence of psychosis. They agree to take mediations as prescribed and keep follow-up appointments. They are stable for discharge to outpatient level of care. Transition of Care Transition Of Care Record: was reviewed with the patient Advance Directives Advance Directives Information Provided: Yes Mental Health Advance Directive: No Advance Directives on File: No Living Will: No Power of Remote Operations Producer: No Advance Directives Reason:: Declines as Mental Health Visit. Suicide Risk Level Suicide Risk Level: Moderate (q15 min suicide checks) Suicide Risk Level Comments: Ms. Perla reports that she has no suicidal thought, and no suicidal plan or intent. She is future oriented, with a plan to stay sober and prepare to "restart" her life. 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 [employer]) Stable Relationships: No Antipsychotic Medications Mood stabilization Total Time Total Time Spent: Greater Than 30 Minutes Discharge Data Lab Results 01/03/24 01/03/24 01/03/24 14:26 15:50 18:32 WBC 8.83 RBC 3.93 L Hgb 11.7 L Hct 36.0 L MCV 91.6 MCH 29.8 MCHC 32.5 RDW Std Deviation 42.5 RDW Coeff of Marybeth 12.7 Plt Count 349 MPV 9.0 L Immature Gran % (Auto) 0.2 Neut % (Auto) 65.0 Lymph % (Auto) 20.2 [place] % (Auto) 11.8 Eos % (Auto) 2.2 Baso % (Auto) 0.6 Neut # (Auto) 5.75 Lymph # (Auto) 1.78 [place] # (Auto) 1.04 H Eos # (Auto) 0.19 Baso # (Auto) 0.05 Immature Gran # (Auto) 0.02 Sodium 139 Potassium 4.4 Chloride 105 Carbon Dioxide 28 Anion Gap 6 BUN 16 Creatinine 0.88 Est Cr Clr Drug Dosing 75.3 Est GFR ( Amer) 85.1 Est GFR (Non-Af Amer) 73.4 BUN/Creatinine Ratio 18.2 Glucose 110 H Calcium 8.8 Total Bilirubin 0.3 AST 12 L ALT 11 Alkaline Phosphatase 53 Troponin I High Sens 2.8 Total Protein 6.2 Albumin 3.9 Globulin 2.3 L Albumin/Globulin Ratio 1.7 TSH 2.017 Urine Color Yellow Urine Appearance Turbid A Urine pH 7.5 Ur Specific [place] 1.024 Urine Protein Negative Urine Glucose (UA) Negative Urine Ketones Negative Urine Blood 2+ H Urine Nitrite Negative Urine Bilirubin Negative Urine Urobilinogen Negative Ur Leukocyte Esterase 3+ H Urine WBC (Auto) >30 H Urine RBC (Auto) 5-10 H U Hyaline Cast (Auto) 1-5 U Epithel Cells (Auto) >30 H Urine Bacteria (Auto) Negative Salicylates < 3.0 L Urine Opiates Screen Neg Ur Methadone, Qual Neg Acetaminophen < 3 L Urine Barbiturates Neg Ur Phencyclidine (PCP) Neg U Amphetamin/Meth Scrn Neg Urine MDEA negative MDMA (Ecstasy) Screen Pos H MDMA negative Urine MDMA negative U Benzodiazepines Scrn Neg Ur Cocaine Metabolite Neg U Marijuana (THC) Screen Neg Ethyl Alcohol mg/dL < 10.0 SARS-CoV-2, RNA, NAAT NEGATIVE Hospital Course (1) Bipolar disorder: 01/09/24: Continue lamotrigine, but at 150 mg HS (2) Alcohol dependence in remission: 01/09/24: Relapse triggers reviewed with patient. Plans to continue NA (prefers to AA) several times a day following discharge Plan 01/09/24: Reduce Lamotrigine to 150 mg HS. 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 and developing more of a support group (outside of AA and NA) Mental Health & Subst Abuse Tx Psychiatrist Name of Psychiatrist: Lizeth @ [facility] Date Of Appointment With Psychiatric Provider: 01/12/24 Time of Appointment with Psychiatrist: 9:15am Psychiatric Appointment Comment: [address] [place] [address] Psychiatrist Release of Information: Obtained, Reviewed and Signed Therapist Name of Therapist: Leida @ [facility] Therapy Appointment Comment: Tuesdays at 1:00pm, Fridays at 10:00am Therapist Release of Information: Obtained, Reviewed and Signed Custom Stock Maker Name of Custom Stock Maker: Sandy Phone Number for Custom Stock Maker: [phone] Date of Appointment with Custom Stock Maker: 01/20/24 Time of Appointment with Custom Stock Maker: 10:00 Case Management Appointment Comment: Sandy will come to your home on 01/20 Post Discharge Appointments Primary Care Physician Name Of Family Doctor/PCP: Dr. Walton Primary Care Date of Future Appointment with PCP: 01/20/24 Time of Appointment with PCP: 1:45pm Provider Appointment Comment: Dr. Kanika Walton @ [facility] location (rescheduled from 01/08) Primary Care Release of Information: Obtained, Reviewed and Signed Discharge Plan Discharge Items Patient Disposition: Home - Self-Care Reason For Visit: BIPOLAR DISORDER 2 Discharge Diagnosis: Unspecified Bipolar Disorder Condition on Discharge: Good Activity: Resume your previous activity Bathing: No limitations Sexual Activity: When tolerated Exercise/Sports: As tolerated Driving/Machine Use: No limitations Weightbearing: Full weightbearing Non-emergency contact: Primary Care Provider and Broadband Installer Call non-emergency contact if: you have any medication questions and your symptoms worsen Follow-up/Referrals: Kanika Walton, [Primary Care Provider] - Diet: Regular Addtl Attending Provider Instructions: You're life is NOT ruined. As FDR would say, You have nothing to fear but fear itself! Happiness comes from reinventing yourself. Pending Studies at Discharge: No Stand-Alone Forms: My Paperless Transaction Management, Smoking Cessation Medications and DC Order Prescriptions: New cephalexin 500 mg Capsule 500 mg PO BID 3 Days Qty: 5 0RF lamotrigine 100 mg Tablet 100 mg PO BID Qty: 60 0RF trazodone 150 mg tablet 150 mg PO HS Qty: 30 0RF buspirone 5 mg Tablet 5 mg PO TID Qty: 90 0RF Continued azelastine 137 mcg (0.1 %) aerosol,spray 1 spray intranasal BID Rx Instructions: administer into each nostril melatonin 5 mg tablet 5 mg PO HS gabapentin 300 mg capsule 300 mg PO TID albuterol sulfate 90 mcg/actuation HFA aerosol inhaler 1 - 2 puff INHALATION Q6H PRN (Reason: SOB or wheezing) atorvastatin 20 mg Tablet 20 mg PO HS cetirizine [Zyrtec] 10 mg Tablet 10 mg PO QAM fluticasone propionate 50 mcg/actuation [place],Suspension 1 spray INTRANASAL BID anastrozole 1 mg tablet 1 mg PO QAM metoprolol succinate 50 mg tablet extended release 24 hr 50 mg PO QAM Vivitrol 380 mg Suspension,Extended Rel Recon 380 mg IM MONTHLY folic acid-B complex,C no.17 5 mg Tablet 1 tab PO QAM disulfiram 250 mg tablet 250 mg PO QAM pantoprazole 40 mg tablet,delayed release (DR/EC) 40 mg PO HS meclizine 25 mg tablet 25 mg PO TID PRN (Reason: dizziness) Qty: 14 0RF naltrexone 50 mg tablet 50 mg PO 2XD Vraylar 1.5 mg capsule 1.5 mg PO 1XD propranolol 10 mg tablet 20 mg PO 2XD benztropine 0.5 mg tablet Discontinued lamotrigine 200 mg tablet 200 mg PO QAM trazodone 100 mg tablet 100 mg PO HS aripiprazole 10 mg tablet 10 mg PO HS disulfiram 250 mg Tablet 250 mg PO DAILY Discharge Orders: Discharge Order (Routine); Ordered 01/10/24 Ordered By: Harpreet Aleman Admission Data Admit Date/Time: 01/03/24 23:28 Attending Provider: Lilly Harrison Admit Provider: Lilly Harrison Primary Care Provider: Kanika Walton Other Providers: Luís Dash Other Interventions: Discharge Summary Assessment (RN) Last Done: 01/10/24 12:52 PSY Interdisciplinary Discharge Planning Last Done: 01/10/24 12:52 Coding Level of Care Code 18936 D/C day mgmt > 30 min Diagnoses Bipolar disorder F31.9 Alcohol dependence in remission F10.21
[2024-01-10] MEDS ORDERED: lamoTRIgine 100 MG TAB PO SCH (21:00)
[2024-01-10] MEDS ORDERED: lamoTRIgine 25 MG TAB PO SCH (22:00)
== END 2024-01-10 14:35 | disposition home or self-care (01) | DRG 885 ==
LOC: ED 13:35 → 3S 23:27

== ENCOUNTER 2024-10-07 13:59 | Inpatient (IN) ==
[2024-10-07 14:49] LABS: Basophils # (auto) 0.05 K/uL (0.00-0.20); Basophils % (auto) 0.4 %; Eosinophils # (auto) 0.06 K/uL (0.00-0.50); Eosinophils % (auto) 0.4 %; Hematocrit (blood only) 40.3 % (37.0-47.0); Immature Granulocytes # (auto) 0.05 K/uL (0.01-0.20); Immature Granulocytes % (auto) 0.4 %; Lymphocytes # (auto) 1.43 K/uL (1.20-3.40); Lymphocytes % (auto) 10.6 %; Mean Corpuscular Hemoglobin 31.6 pg (25.0-34.0); Mean Corpuscular Hgb Conc 34.7 g/dL (32.0-36.0); Mean Platelet Volume 9.2 fL (9.4-12.4); Monocytes # (auto) 0.77 K/uL (0.11-0.59); Monocytes % (auto) 5.7 %; Neutrophils # (auto) 11.11 K/uL (1.40-6.50); Neutrophils % (auto) 82.5 %; Platelet Count 362 K/uL (130-400); RDW Coefficient of Variation 12.5 % (11.5-14.5); RDW Standard Deviation 41.3 fL (36.4-46.3); Red Blood Count 4.43 M/uL (4.20-5.40); White Blood Count 13.47 K/ul (4.8-10.8)
[2024-10-07 14:58] LABS: Albumin Globulin Ratio 2.2 (0.9-2); Albumin Level 4.8 gm/dl (3.4-5.0); BUN Creatinine Ratio 17.2 (10-20); Bilirubin,Total 0.6 mg/dl (0.2-1.0); Calcium 9.8 mg/dl (8.6-10.3); Creatinine Clr Calc Pharmacy 62.5 ml/min; Globulin 2.2 gm/dl (2.5-4.0); Potassium 4.2 mmol/L (3.5-5.1)
[2024-10-07] MEDS: OPTIRAY 320 100ml IV ONE (16:41)
[2024-10-07] MEDS: ONDANSETRON INJ 2 MG/ML 2 ML VIAL IV STA (16:46)
[2024-10-07] MEDS: SODIUM CHLORIDE 0.9% 500 ML IV ONE (16:46)
[2024-10-07] MEDS: FAMOTIDINE 20MG IV PUSH 20 MG/5 ML SYR IV STA (16:48)
--- NOTE | 2024-10-07 17:01 | CT Scan Report ---
CT ABDOMEN and PELVIS with INTRAVENOUS CONTRAST HISTORY: Abdominal pain TECHNIQUE: CT abdomen and pelvis with contrast. IV CONTRAST: 100 mL of OMNIPAQUE 300 ENTERIC CONTRAST: Not Given COMPARISON: CT abdomen pelvis March 10, 2017 FINDINGS: LOWER CHEST: Small atelectatic change in the right middle lobe. Mildly prominent paraaortic lymph nodes in the thorax are similar to previous LIVER: Scattered subcentimeter tiny hypodensities are incompletely characterized but likely to represent cysts or hemangiomas in the absence of significant past medical history. GALLBLADDER/BILIARY: Surgically absent gallbladder. There is prominence of the common bile duct and intrahepatic biliary dilation is also present. These findings may be related to the postcholecystectomy state. SPLEEN: Unremarkable. PANCREAS: Unremarkable. ADRENALS: Unremarkable. KIDNEYS: There is moderate right hydroureteronephrosis secondary to a 4 mm obstructing stone at the UVJ. PERITONEUM/RETROPERITONEUM. No lymphadenopathy by size criteria. No aortic aneurysm. GASTROINTESTINAL: No obstruction. Small hiatal hernia. Multiple loops of small bowel demonstrate inflammatory changes with wall thickening and mild fluid distention. There is also a very large quantity of desiccated stool within the large bowel. The appendix is normal. REPRODUCTIVE: Heterogeneous and somewhat bulky uterus likely with underlying fibroids. Likely Bartholin cyst over the vaginal canal URINARY BLADDER: Mildly inflamed. ABDOMINAL WALL: Nodular soft tissue densities are noted in the gluteal and lower back subcutaneous tissues, may represent injection granulomas. BONES: No acute findings. IMPRESSION: Obstructing 4 mm stone at the RIGHT UVJ resulting in moderate upstream hydroureteronephrosis. Findings suggesting enteritis as well as constipation. Appendix is normal. There are also findings that may suggest mild cystitis. Please correlate with urinalysis Bulky heterogeneous uterus likely due to underlying fibroids. Electronically signed by David Eisenberg 10-07-2024 4:59 PM
[2024-10-07 17:02] LABS: Appearance Urine Cloudy (Clear); Bacteria Urine Automated 2+ (None Seen); Bilirubin Urine Negative (Negative); Blood Urine 3+ (Negative); Color Urine Yellow; Epithelial Cell Urine Auto 0-2 /hpf (0-2); Glucose Urine UA Negative (Negative); Ketones Urine 2+ (Negative); Leukocyte Esterase Urine 2+ (Negative); Nitrite Urine Negative (Negative); Protein Urine Trace (Negative); RBC Urine Automated >20 /hpf (0-2); Specific Gravity Urine 1.025 (1.000-1.030); Urobilinogen Urine Negative (Negative); WBC Urine Automated 21-50 /hpf (0-5); pH Urine 6.5 (4.5-7.5)
--- NOTE | 2024-10-07 18:00 | Emergency Department Note ---
Impression & Plan Hydroureteronephrosis, UTI (urinary tract infection), Ureterolithiasis ED Provider Note NAME: KAUSHAL ROBLEDO AGE: 59 SEX: F : 1965 ARRIVES VIA: Walk-In INFORMANT: Patient ED PROVIDER(S): Leonid Stoll MD CHIEF COMPLAINT: Abdominal pain PLAN: Disposition: Admit MEDICAL DECISION MAKING: The patient is a pleasant 59-year-old woman with a past medical history of bipolar disorder, hypothyroidism, prior alcohol dependence where she has been in remission for 18 months presents to the emergency department for evaluation of acute onset of right flank and right lower abdominal pain that began today. She also adds that she noticed some blood in her stool couple weeks ago but only a single episode. She reports having nausea and vomiting. She has any fevers, chest pain, shortness of breath. Of note, the patient did arrive to emergency department during time of high volume, acuity and prolonged emergency department waiting times. Critical pathways initiated from triage. On my evaluation the patient is uncomfortable but in no distress, afebrile with heart in the 90s and blood pressure 140s/90s. She appears clinically dry. She has mild right flank and right lower abdominal tenderness without guarding or rebound. WBC 13.4 with neutrophil predominance but no left shift, nonspecific. H/H and platelets within normal limits. Chemistry without metabolic acidosis. Electrolytes LFTs without significant abnormality. UA is consistent with infection with 2+ bacteria, WBCs and RBCs. Nitrites are negative. CT of the on pelvis was performed and demonstrates an obstructing 4 mm right UVJ stone with associated moderate upstream hydroureteronephrosis. Additional evidence of cystitis is described. Patient was treated with IV hydration as well as IV famotidine, Zofran, IV APAP as well as morphine for analgesia and IV ceftriaxone. Findings reviewed with the patient at the bedside. She did agree with plan for admission for further management including urology consultation/intervention. Case was discussed with urology on-call, Dr. Kenney. Appreciate consultation recommendations. Given patient is afebrile hemodynamically stable plan will be to take the patient to the OR for stent placement tomorrow morning. Agrees with antibiotics admission to medicine service. Case was discussed with MARCIE Sepulveda PAC, with MARCIE Worthington hospitalist who will evaluate the patient for admission. Further management per admitting team. Triage Nursing notes reviewed and agree them. Prior/external medical records reviewed Vital Signs: reviewed Differential diagnosis: Renal colic, UTI, appendicitis, diverticulitis, mesenteric ischemia, aortic pathology, infections, inflammatory bowel disease, PUD, biliary pathology, as well as other pathologies. ER treatment provided: See below. Diagnostics interpreted by me: ECG: Sinus bradycardia, 50 bpm, no ectopy, no high-grade AV block, no overt ST elevation or depression, QTc 426, QRS 92. Cardiac Monitoring: An order for continuous cardiac monitoring was placed and demonstrated Sinus bradycardia, 69 bpm, no ectopy. Laboratory studies: See below Imaging studies: See below Consultation(s): Dr. Kenney, [place] urology Jay Sandoval, [facility] PAC, with Dr. Delgado [facility] hospitalist HPI: The patient is a pleasant 59-year-old woman with a past medical history of bipolar disorder, hypothyroidism, prior alcohol dependence where she has been in remission for 18 months presents to the emergency department for evaluation of acute onset of right flank and right lower abdominal pain that began today. She also adds that she noticed some blood in her stool couple weeks ago but only a single episode. She reports having nausea and vomiting. She has any fevers, chest pain, shortness of breath. ROS: See above HPI for pertinent positives & negatives. A total of 10 systems reviewed and were otherwise negative. VITALS:See Below PHYSICAL EXAMINATION: GENERAL: Awake, alert, uncomfortable-appearing, in no distress HENT: Normocephalic, atraumatic. Oropharynx with dry mucous membranes and otherwise unremarkable. EYES: Normal conjunctiva. Sclera non-icteric. NECK: Supple. No nuchal rigidity. FROM. No JVD. RESPIRATORY: Clear to auscultation. CARDIAC: Regular rate, normal rhythm. Extremities warm and well perfused. Pulses equal. ABDOMEN: Soft, non-distended. Mild right flank and right lower abdominal tenderness without guarding or rebound. MUSCULOSKELETAL: Chest examination reveals no tenderness. The back is symmetrical on inspection without obvious abnormality. There is no CVA tenderness to palpation. No joint edema. LOWER EXTREMITIES: Calves are equal size bilaterally and non-tender. No edema. No discoloration. NEURO: Normal sensorium. No sensory or motor deficits noted. SKIN: No rash or jaundice noted. Leonid Stoll MD Past Med/Surg History Problem List (Updated 10/08/24 @ 15:07 by Leonid Stoll MD) Ureterolithiasis (Acute) UTI (urinary tract infection) (Acute) Hydroureteronephrosis (Acute) Alcohol dependence in remission Dysphagia Difficult extubation Acute hyponatremia (Acute) Elevated liver enzymes (Acute) Hypokalemia Dyslipidemia Mood disorder Anxiety Medical History (Updated 10/08/24 @ 15:07 by Leonid Stoll MD) Bipolar disorder Anxiety GERD (gastroesophageal reflux disease) Esophagitis determined by endoscopy Hypothyroidism monitoring levels d/t allergy to levothyroxine Ventricular tachycardia from alcohol withdrawl Noncompliance with medication regimen PAF (paroxysmal atrial fibrillation) pt denies Alcohol withdrawal Schatzki's ring Dysphagia History of anesthesia reaction "04/2022-food bolus, removed under general anesthesia in the OR. Pt was extubated and didn't start breathing right away, so they reintubated her and took her to ICU; I told the doctors that I was definitely not drinking the day of my procedure either." Family history of colon cancer Alcoholism hx-quit drinking most recently 05/2023 - treated in [facility] for 10 days in patient and had her last episode of SVT in May 2023. Post traumatic stress disorder Elevated glucose level "watches her diet to keep my level stable" Elevated transaminase level hx Abnormal TSH "on the borderline'-monitoring it and no meds Palpitations "related to drinking, I had SVT's and if I don't drink, I don't have them; have been to the ER to have them checked" f/u Dr. 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 Huynh) last episode 05/2023. treated with adenosine IV in 05/2023. Surgical History History of dilatation and curettage (~01/2023) for endometrial hyperplasia r/t tamoxifen History of dilation and curettage 2003 - s/p miscarriage History of mandibular surgery 1985 History of lumpectomy of right breast x2; radiation tx [id number] History of lumpectomy of left breast x1; x20 radiation tx., no chemo History of breast biopsy 11/30/2019 - Left Breast 02/08/2020 - Right Breast History of surgery 05/07/2016 - Anal Tag Removal H/O colonoscopy 05/01/2016 - perianal skin tag, normal colon H/O esophagogastroduodenoscopy 07/04/2009 - EUS exam- No choledocholithiasis, No masses appreciated in the entire pancreas. EGD exam- Normal examined duodenum. Bilious gastric fluid. Mild gastritis ? bilious etiology. Bx neg for H. pylori. Prominent fold just distal to GEJ. Bx- Squamocolumnar mucosa with mild carditis and hyperplastic changes. Negative for intestinal metaplasia and dysplasia. Medium sized hiatus hernia." On 03/10/17 15:26 Rita Taco wrote "07/04/2009- EUS exam- No choledocholithiasis, No masses appreciated in the entire pancreas. EGD exam- Normal examined duodenum. Bilious gastric fluid. Mild gastritis ? bilious etiology. This was biopsied to r/o H Pylori. Prominent fold just distal to GEJ. This was biopsied. Medium sized hiatus hernia." S/P laparoscopic cholecystectomy 02/23/2004 Family History Mother Breast cancer, Onset Age: 76 Currently battling metastatic breast cancer Grandmother (Paternal) , Passed age 93 of stomach cancer No problems noted. Grandfather (Maternal) , Passed age 72 of colon cancer No problems noted. Father , Passed age 67 of complications from menigioma No problems noted. Aunt Breast cancer, Onset Age: 34 Alive and well Aunt Breast cancer, Onset Age: 62 alive and well Aunt Breast cancer, Onset Age: 62 Alive and well Brother Stroke Dementia Sister No problems noted. Son No problems noted. 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 Feels Safe at Home: Yes Childhood Exposure to Second-Hand Smoke: Yes (Mom ) Diet: regular caffeine: Yes (daily ) during the past year weight has: remained stable Dental Care, Regularly: Yes Gender Identity: Female Assistive Devices: Glasses Allergies Allergies Allergy/AdvReac Type Severity Reaction Status Date / Time levothyroxine Allergy Severe facial Verified 10/07/24 18:29 swelling minocycline [From Minocin] Allergy Mild Rash Verified 10/07/24 18:29 Sulfa (Sulfonamide Allergy Unknown PT DOESN'T Verified 10/07/24 18:29 Antibiotics) REMEMBER REACTION Home Meds Home Medications Medication Instructions Recorded Confirmed fluticasone propionate 50 1 spray intranasal BID 02/18/22 10/07/24 mcg/actuation nasal spray,suspension azelastine 137 mcg (0.1 %) nasal 1 spray intranasal BID 05/15/22 10/07/24 spray anastrozole 1 mg tablet 1 mg PO QAM 07/22/22 10/07/24 albuterol sulfate 90 mcg/actuation 1 - 2 puff inhalation Q6H PRN SOB 05/12/23 10/07/24 aerosol inhaler or wheezing disulfiram 250 mg tablet 250 mg PO HS 07/31/23 10/07/24 naltrexone microspheres 380 mg 380 mg IM MONTHLY 07/31/23 10/07/24 intramuscular suspension,extended release (Vivitrol) atorvastatin 40 mg tablet 40 mg PO DAILY 10/07/24 10/07/24 buspirone 10 mg tablet 10 mg PO BID 10/07/24 10/07/24 ergocalciferol (vitamin D2) 1,250 50,000 unit PO WK 10/07/24 10/07/24 mcg (50,000 unit) capsule lamotrigine 100 mg tablet,extended See Rx Instructions .Route .COMPLEX 10/07/24 10/07/24 release 24 hr lamotrigine 25 mg tablet,extended See Rx Instructions .Route .COMPLEX 10/07/24 10/07/24 release 24 hr lamotrigine 50 mg tablet,extended See Rx Instructions .Route .COMPLEX 10/07/24 10/07/24 release 24 hr pantoprazole 40 mg tablet,delayed 40 mg PO DAILY 10/07/24 10/07/24 release trazodone 100 mg tablet 200 mg PO HS 10/07/24 10/07/24 Previous Rx's Medication Instructions Recorded cefpodoxime 200 mg tablet 200 mg PO Q12H #14 tabs 10/08/24 ketorolac 10 mg tablet 30 mg (3 x 10 mg) PO DAILY PRN 10/08/24 pain 1 day #15 tabs Results & Data (ED) Vital Signs Vital Signs - 24 hr 10/07/24 16:22 10/07/24 16:22 10/07/24 17:05 Temperature 37.4 C Temperature Source Oral Pulse Rate 54 L Pulse Rate [Apical] 54 L 62 Pulse Rhythm [Apical] Regular Respiratory Rate 14 15 25 H Respiratory Effort / Characteristics Non-Labored Spontaneous Respiratory Depth Normal Normal Respiratory Pattern Regular Blood Pressure [Right Arm] 126/74 147/86 H Blood Pressure Mean [Right Arm] 91 106 Blood Pressure Position [Right Arm] Semi-fowlers Lying Pulse Oximetry 100 100 100 Oxygen Delivery Method Room Air Room Air Room Air 10/07/24 17:12 10/07/24 17:49 10/07/24 18:16 Temperature 36.6 C Temperature Source Oral Pulse Rate 69 Pulse Rate [Apical] 63 49 L Pulse Rhythm [Apical] Respiratory Rate 15 25 H Respiratory Effort / Characteristics Non-Labored Spontaneous Non-Labored Spontaneous Respiratory Depth Normal Normal Respiratory Pattern Regular Regular Blood Pressure [Right Arm] 151/93 H 141/83 H Blood Pressure Mean [Right Arm] 112 102 Blood Pressure Position [Right Arm] Pulse Oximetry 100 100 Oxygen Delivery Method Room Air Room Air 10/07/24 18:26 Temperature Temperature Source Pulse Rate Pulse Rate [Apical] 54 L Pulse Rhythm [Apical] Respiratory Rate 16 Respiratory Effort / Characteristics Non-Labored Spontaneous Respiratory Depth Normal Respiratory Pattern Regular Blood Pressure [Right Arm] Blood Pressure Mean [Right Arm] Blood Pressure Position [Right Arm] Pulse Oximetry 100 Oxygen Delivery Method Room Air Laboratory Data Attestation: I reviewed the patient's lab results. 10/08/24 11:15 10/08/24 11:15 Lab Results 10/07/24 10/07/24 Range/Units 14:28 16:30 WBC 13.47 H (4.8-10.8) K/ul RBC 4.43 (4.20-5.40) M/uL Hgb 14.0 (12.0-16.0) g/dl Hct 40.3 (37.0-47.0) % MCV 91.0 (80.0-100.0) fL MCH 31.6 (25.0-34.0) pg MCHC 34.7 (32.0-36.0) g/dL RDW Std Deviation 41.3 (36.4-46.3) fL RDW Coeff of Marybeth 12.5 (11.5-14.5) % Plt Count 362 (130-400) K/uL MPV 9.2 L (9.4-12.4) fL Immature Gran % (Auto) 0.4 % Neut % (Auto) 82.5 % Lymph % (Auto) 10.6 % [place] % (Auto) 5.7 % Eos % (Auto) 0.4 % Baso % (Auto) 0.4 % Neut # (Auto) 11.11 H (1.40-6.50) K/uL Lymph # (Auto) 1.43 (1.20-3.40) K/uL [place] # (Auto) 0.77 H (0.11-0.59) K/uL Eos # (Auto) 0.06 (0.00-0.50) K/uL Baso # (Auto) 0.05 (0.00-0.20) K/uL Immature Gran # (Auto) 0.05 (0.01-0.20) K/uL Sodium 138 (136-145) mmol/L Potassium 4.2 (3.5-5.1) mmol/L Chloride 102 (98-107) mmol/L Carbon Dioxide 26 (21-32) mmol/L Anion Gap 10 (3-11) BUN 16 (6-23) mg/dl Creatinine 0.93 (0.6-1.2) mg/dl Est Cr Clr Drug Dosing 62.5 ml/min eGFR 71.69 BUN/Creatinine Ratio 17.2 (10-20) Glucose 112 H (70-99(Fasting)) mg/dl Calcium 9.8 (8.6-10.3) mg/dl Total Bilirubin 0.6 (0.2-1.0) mg/dl AST 16 (13-39) U/L ALT 16 (7-52) U/L Alkaline Phosphatase 57 (34-104) U/L Total Protein 7.0 (6.0-8.3) gm/dl Albumin 4.8 (3.4-5.0) gm/dl Globulin 2.2 L (2.5-4.0) gm/dl Albumin/Globulin Ratio 2.2 H (0.9-2) Lipase 31 (11-82) U/L Urine Color Yellow Urine Appearance Cloudy A (Clear) Urine pH 6.5 (4.5-7.5) Ur Specific [place] 1.025 (1.000-1.030) Urine Protein Trace H (Negative) Urine Glucose (UA) Negative (Negative) Urine Ketones 2+ H (Negative) Urine Blood 3+ H (Negative) Urine Nitrite Negative (Negative) Urine Bilirubin Negative (Negative) Urine Urobilinogen Negative (Negative) Ur Leukocyte Esterase 2+ H (Negative) Urine WBC (Auto) 21-50 H (0-5) /hpf Urine RBC (Auto) >20 H (0-2) /hpf U Hyaline Cast (Auto) 3-5 H (0-2) /lpf U Epithel Cells (Auto) 0-2 (0-2) /hpf Urine Bacteria (Auto) 2+ H (None Seen) Administered Medications Discontinued Medications Anastrozole (Anastrozole 1 Mg Tab) 1 mg PO QAM CASSANDRA Stop: 11/07/24 08:59 Last Admin: 10/08/24 11:27 Dose: 1 mg Documented By: ALEXANDER Co-signed By: CA Atorvastatin Calcium (Atorvastatin 40 Mg Tab) 40 mg PO DAILY CASSANDRA Stop: 11/07/24 08:59 Last Admin: 10/08/24 08:40 Dose: 40 mg Documented By: OO Buspirone HCl (Buspirone 5 Mg Tab) 10 mg PO BID CASSANDRA Stop: 11/06/24 21:13 Last Admin: 10/08/24 08:40 Dose: 10 mg Documented By: Admin: 10/07/24 21:58 Dose: 10 mg Documented By: CR Diatrizoate Meglumine (Diatrizoate Meglumine 30% 100ml Vial) 100 ml INSTIL UD ONE Stop: 10/08/24 07:54 Last Admin: 10/08/24 07:54 Dose: 6 ml Documented By: [id number] Sodium Chloride (Nss) 500 mls @ 999 mls/hr IV .Q31M ONE Stop: 10/07/24 16:49 Last Infusion: 10/07/24 17:18 Dose: Infused Documented By: Admin: 10/07/24 16:46 Dose: 999 mls/hr Documented By: CHACE Famotidine (Pepcid 20mg Iv Push) 20 mg in 5 mls @ 2.5 mls/min IV NOW STA Stop: 10/07/24 16:20 Last Admin: 10/07/24 16:48 Dose: 2.5 mls/min Documented By: CHACE Acetaminophen (Ofirmev) 1,000 mg in 100 mls @ 400 mls/hr IV NOW STA Stop: 10/07/24 18:12 Last Infusion: 10/07/24 18:31 Dose: Infused Documented By: Admin: 10/07/24 18:17 Dose: 400 mls/hr Documented By: CHACE Sodium Chloride (Nss) 1,000 mls @ 999 mls/hr IV .Q1H1M ONE Stop: 10/07/24 18:58 Last Infusion: 10/07/24 20:02 Dose: Infused Documented By: Admin: 10/07/24 18:16 Dose: 999 mls/hr Documented By: CHACE Ceftriaxone Sodium (Rocephin) 2,000 mg in 50 mls @ 100 mls/hr IV NOW STA Stop: 10/07/24 18:28 Last Infusion: 10/07/24 20:02 Dose: Infused Documented By: Infusion: 10/07/24 19:00 Dose: Infused Documented By: Admin: 10/07/24 18:29 Dose: 100 mls/hr Documented By: CHACE Parenteral Electrolytes (Plasma-Lyte A Ph 7.4) 1,000 mls @ 125 mls/hr IV .Q8H CASSANDRA Stop: 10/08/24 22:14 Last Admin: 10/08/24 06:34 Dose: 125 mls/hr Documented By: Infusion: 10/08/24 06:33 Dose: Infused Documented By: Admin: 10/07/24 22:34 Dose: 125 mls/hr Documented By: SHANNA Ioversol (Optiray 320 100ml) 94 ml IV ONCE ONE Stop: 10/07/24 16:41 Last Admin: 10/07/24 16:41 Dose: 94 ml Documented By: LAYO Lamotrigine (Lamotrigine 100 Mg Tab) 100 mg PO DAILY CASSANDRA Stop: 11/07/24 08:59 Last Admin: 10/08/24 08:39 Dose: 100 mg Documented By: ALEXANDER Morphine Sulfate (Morphine Sulfate 10 Mg/Ml Carp/Vial) 6 mg IV NOW STA Stop: 10/07/24 17:59 Last Admin: 10/07/24 18:20 Dose: 6 mg Documented By: CHACE Ondansetron HCl (Ondansetron Inj 2 Mg/Ml 2 Ml Vial) 4 mg IV NOW STA Stop: 10/07/24 16:20 Last Admin: 10/07/24 16:46 Dose: 4 mg Documented By: CHACE Pantoprazole Sodium (Pantoprazole 40 Mg Tab) 40 mg PO DAILY CASSANDRA Stop: 11/07/24 08:59 Last Admin: 10/08/24 08:41 Dose: 40 mg Documented By: ALEXANDER Trazodone HCl (Trazodone Hcl 100 Mg Tab) 200 mg PO HS CASSANDRA Stop: 11/06/24 21:13 Last Admin: 10/07/24 21:58 Dose: 200 mg Documented By: SHANNA Imaging Data Radiologist's Impression: Abdomen/Pelvis CT 10/07/24 16:19 CT ABDOMEN and PELVIS with INTRAVENOUS CONTRAST HISTORY: Abdominal pain TECHNIQUE: CT abdomen and pelvis with contrast. IV CONTRAST: 100 mL of OMNIPAQUE 300 ENTERIC CONTRAST: Not Given COMPARISON: CT abdomen pelvis March 10, 2017 FINDINGS: LOWER CHEST: Small atelectatic change in the right middle lobe. Mildly prominent paraaortic lymph nodes in the thorax are similar to previous LIVER: Scattered subcentimeter tiny hypodensities are incompletely characterized but likely to represent cysts or hemangiomas in the absence of significant past medical history. GALLBLADDER/BILIARY: Surgically absent gallbladder. There is prominence of the common bile duct and intrahepatic biliary dilation is also present. These findings may be related to the postcholecystectomy state. SPLEEN: Unremarkable. PANCREAS: Unremarkable. ADRENALS: Unremarkable. KIDNEYS: There is moderate right hydroureteronephrosis secondary to a 4 mm obstructing stone at the UVJ. PERITONEUM/RETROPERITONEUM. No lymphadenopathy by size criteria. No aortic aneurysm. GASTROINTESTINAL: No obstruction. Small hiatal hernia. Multiple loops of small bowel demonstrate inflammatory changes with wall thickening and mild fluid distention. There is also a very large quantity of desiccated stool within the large bowel. The appendix is normal. REPRODUCTIVE: Heterogeneous and somewhat bulky uterus likely with underlying fibroids. Likely Bartholin cyst over the vaginal canal URINARY BLADDER: Mildly inflamed. ABDOMINAL WALL: Nodular soft tissue densities are noted in the gluteal and lower back subcutaneous tissues, may represent injection granulomas. BONES: No acute findings. IMPRESSION: Obstructing 4 mm stone at the RIGHT UVJ resulting in moderate upstream hydroureteronephrosis. Findings suggesting enteritis as well as constipation. Appendix is normal. There are also findings that may suggest mild cystitis. Please correlate with urinalysis Bulky heterogeneous uterus likely due to underlying fibroids. Electronically signed by David Eisenberg 10-07-2024 4:59 PM Discharge Plan Visit Data Chief Complaint: GI Bleed Stated Complaint: VOMITING BILE, BLOODY STOOL ED Provider: Leonid Stoll Discharge Problem: Hydroureteronephrosis, UTI (urinary tract infection), Ureterolithiasis Patient Disposition: Admitted As Inpatient Discharge Instructions Interventions: ED Discharge Assessment Last Done: 10/07/24 20:59 Discharge Problem: UTI (urinary tract infection) Qualifiers: Urinary tract infection type: acute cystitis Hematuria presence: with hematuria Qualified Code(s): N30.01 - Acute cystitis with hematuria
[2024-10-07] MEDS: SODIUM CHLORIDE 0.9% 1,000 ML IV ONE (18:16)
[2024-10-07] MEDS: ACETAMINOPHEN 1,000 MG/100 ML VIAL IV STA (18:17)
[2024-10-07] MEDS: MoRPHine SULFATE 10 MG/ML CARP/VIAL IV STA (18:20)
[2024-10-07] MEDS: cefTRIAXone SODIUM 2,000 MG/50 ML BAG IV STA (18:29)
--- NOTE | 2024-10-07 18:59 | History & Physical Report ---
Date of Service October 07, 2024 Assessment & Plan (1) Hydroureteronephrosis: Plan: Presenting with worsening abdominal pain, dysuria, nausea/vomiting, and 1 episode of BRBPR. No current fever - Admit PCU - CBC WBC 13.47, neutrophil predominant (11.11), CMP grossly WNL - UA cloudy appearance, protein, ketones, blood, LE, WBC, RBC, hyaline cast, and 2+ bacteria-> pending culture - CTAP obstructing 4 mm stone at right UVJ, hydroureteronephrosis, enteritis and constipation, cystitis, bulky heterogeneous uterus - Bradycardic on exam, pending EKG - Rocephin for #2 - Pain management medications ordered - Urology consulted Appreciate urology input and recs (2) UTI (urinary tract infection): Plan: Dysuria, left-sided abdominal pain, N/V - Without history of Pseudomonas - UA cloudy appearance, protein, ketones, blood, LE, WBC, RBC, hyaline cast, and 2+ bacteria - Pending culture - CTAP obstructing 4 mm stone at right UVJ, hydroureteronephrosis, enteritis and constipation, cystitis, bulky heterogeneous uterus - Ceftriaxone 2g IV q24hr - Zofran 4mg IV q4-6hr (3) Bipolar disorder: Plan: Bipolar 1 disorder - Lamotrigine total 175 mg by mouth every morning (4) Alcohol dependence in remission: Plan: Sober x 16 months per patient - No symptoms suggestive of withdrawal - Holding disulfiram (5) Anxiety: Plan: Per history - Buspirone 10 mg twice daily (6) Ureterolithiasis: Plan HLD-atorvastatin 40 mg daily GERD- pantoprazole 40 daily Trazodone 200mg at bedtime H/o BCA 2019- Holding anastrozole for now Dispo: Admit Diet: NPO VTE prophylaxis: Hold until after surgery Code: Full Admission and Anticipated Discharge Date Admission Date: 10/07/2024 History of Present Illness Chief Complaint: BRBPR, pain Primary Care Provider: Kanika Walton DO 59-year-old female presenting for nausea/vomiting, severe right lower quadrant abdominal pain, bright red blood per rectum. ER course: CBC- WBC 13.47, neutrophil predominant (11.11); CMP glucose 112, globulin 2.2, albumin/globulin ratio 2.2, otherwise grossly WNL; lipase 31; UA cloudy, trace protein, 2+ ketones, 3+ blood, 2+ LE, presence of WBC, RBC, hyaline cast, 2+ bacteria CTAP obstructing 4 mm stone at right UVJ resulting in moderate upstream hydroureteron ephrosis, findings suggesting enteritis as well as constipation, findings may suggest mild cystitis, pending EKG. Provided with 1500 mL NSS, famotidine, Zofran, morphine, Tylenol, Rocephin in ED. Patient is a 59-year-old female PMHx anxiety, hypothyroidism, dyslipidemia, bipolar 1 disorder, history of alcohol abuse, and GERD presenting for abdominal pain with associated nausea, vomiting, and bright red blood per rectum x 1. States over the past few days, she has had worsening left sided pain, and has had episodes of nausea with vomiting all day. States that she is unsure the quantity of emesis, but states that it is yellow in appearance. Experiencing anorexia. 1 episode of BRBPR. Is having dysuria but no additional LUTS. Denying chest pain, shortness of breath, palpitations, diarrhea, constipation, numbness/tingling, fever, or chills. Took all a.m. medications. Never had this happen before. Please see Dr. Delgado's attestation for adjustments/additions to treatment plan. Allergies Allergy/AdvReac Type Severity Reaction Status Date / Time levothyroxine Allergy Severe facial Verified 10/07/24 18:29 swelling minocycline [From Minocin] Allergy Mild Rash Verified 10/07/24 18:29 Sulfa (Sulfonamide Allergy Unknown PT DOESN'T Verified 10/07/24 18:29 Antibiotics) REMEMBER REACTION Home Medications Medication Instructions Recorded Confirmed Type fluticasone propionate 50 1 spray intranasal BID 02/18/22 10/07/24 History mcg/actuation nasal spray,suspension azelastine 137 mcg (0.1 %) nasal 1 spray intranasal BID 05/15/22 10/07/24 History spray anastrozole 1 mg tablet 1 mg PO QAM 07/22/22 10/07/24 History albuterol sulfate 90 mcg/actuation 1 - 2 puff inhalation Q6H PRN SOB 05/12/23 10/07/24 History aerosol inhaler or wheezing disulfiram 250 mg tablet 250 mg PO HS 07/31/23 10/07/24 History naltrexone microspheres 380 mg 380 mg IM MONTHLY 07/31/23 10/07/24 History intramuscular suspension,extended release (Vivitrol) atorvastatin 40 mg tablet 40 mg PO DAILY 10/07/24 10/07/24 History buspirone 10 mg tablet 10 mg PO BID 10/07/24 10/07/24 History ergocalciferol (vitamin D2) 1,250 50,000 unit PO WK 10/07/24 10/07/24 History mcg (50,000 unit) capsule lamotrigine 100 mg tablet,extended See Rx Instructions .Route .COMPLEX 10/07/24 10/07/24 History release 24 hr lamotrigine 25 mg tablet,extended See Rx Instructions .Route .COMPLEX 10/07/24 10/07/24 History release 24 hr lamotrigine 50 mg tablet,extended See Rx Instructions .Route .COMPLEX 10/07/24 10/07/24 History release 24 hr pantoprazole 40 mg tablet,delayed 40 mg PO DAILY 10/07/24 10/07/24 History release trazodone 100 mg tablet 200 mg PO HS 10/07/24 10/07/24 History Past Med/Surg History Problem List (Updated 10/08/24 @ 07:02 by Rita Norris DO) Ureterolithiasis (Acute) UTI (urinary tract infection) (Acute) Hydroureteronephrosis (Acute) Alcohol dependence in remission Dysphagia Difficult extubation Acute hyponatremia (Acute) Elevated liver enzymes (Acute) Hypokalemia Dyslipidemia Mood disorder Anxiety Medical History (Updated 10/08/24 @ 07:02 by Rita Norris DO) Bipolar disorder Anxiety GERD (gastroesophageal reflux disease) Esophagitis determined by endoscopy Hypothyroidism monitoring levels d/t allergy to levothyroxine Ventricular tachycardia from alcohol withdrawl Noncompliance with medication regimen PAF (paroxysmal atrial fibrillation) pt denies Alcohol withdrawal Schatzki's ring Dysphagia History of anesthesia reaction "04/2022-food bolus, removed under general anesthesia in the OR. Pt was extubated and didn't start breathing right away, so they reintubated her and took her to ICU; I told the doctors that I was definitely not drinking the day of my procedure either." Family history of colon cancer Alcoholism hx-quit drinking most recently 05/2023 - treated in [facility] for 10 days in [place] and had her last episode of SVT in May 2023. Post traumatic stress disorder Elevated glucose level "watches her diet to keep my level stable" Elevated transaminase level hx Abnormal TSH "on the borderline'-monitoring it and no meds Palpitations "related to drinking, I had SVT's and if I don't drink, I don't have them; have been to the ER to have them checked" f/u Dr. 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 Huynh) last episode 05/2023. treated with adenosine IV in 05/2023. Surgical History History of dilatation and curettage (~01/2023) for endometrial hyperplasia r/t tamoxifen History of dilation and curettage 2003 - s/p miscarriage History of mandibular surgery 1985 History of lumpectomy of right breast x2; radiation tx [id number] History of lumpectomy of left breast x1; x20 radiation tx., no chemo History of breast biopsy 11/30/2019 - Left Breast 02/08/2020 - Right Breast History of surgery 05/07/2016 - Anal Tag Removal H/O colonoscopy 05/01/2016 - perianal skin tag, normal colon H/O esophagogastroduodenoscopy 07/04/2009 - EUS exam- No choledocholithiasis, No masses appreciated in the entire pancreas. EGD exam- Normal examined duodenum. Bilious gastric fluid. Mild gastritis ? bilious etiology. Bx neg for H. pylori. Prominent fold just distal to GEJ. Bx- Squamocolumnar mucosa with mild carditis and hyperplastic changes. Negative for intestinal metaplasia and dysplasia. Medium sized hiatus hernia." On 03/10/17 15:26 Rita España wrote "07/04/2009- EUS exam- No choledocholithiasis, No masses appreciated in the entire pancreas. EGD exam- Normal examined duodenum. Bilious gastric fluid. Mild gastritis ? bilious etiology. This was biopsied to r/o H Pylori. Prominent fold just distal to GEJ. This was biopsied. Medium sized hiatus hernia." S/P laparoscopic cholecystectomy 02/23/2004 Family History Mother Breast cancer, Onset Age: 76 Currently battling metastatic breast cancer Grandmother (Paternal) , Passed age 93 of stomach cancer No problems noted. Grandfather (Maternal) , Passed age 72 of colon cancer No problems noted. Father , Passed age 67 of complications from menigioma No problems noted. Aunt Breast cancer, Onset Age: 34 Alive and well Aunt Breast cancer, Onset Age: 62 alive and well Aunt Breast cancer, Onset Age: 62 Alive and well Brother Stroke Dementia Sister No problems noted. Son No problems noted. 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 Feels Safe at Home: Yes Safety Concerns: Feels Safe At This Time Childhood Exposure to Second-Hand Smoke: Yes (Mom ) Diet: regular caffeine: Yes (daily ) during the past year weight has: remained stable Dental Care, Regularly: Yes Gender Identity: Female Assistive Devices: Glasses Review of Systems Review of Systems: All systems reviewed & are unremarkable except as noted in Subjective Physical Exam Physical Exam: General: Appearing uncomfortable Skin: Warm and dry Head: Normocephalic, atraumatic Eyes: PERRL, conjunctivae clear, sclera non-icteric ENT: External ear and ear canal without swelling; nose atraumatic Neck: Supple, no LAD Cardio: Bradycardia, regular rhythm, no M/G/R, S1 and S2 normal Resp: No respiratory distress, Lungs CTA in all lobes bilaterally, no wheezes, rales, or rhonchi Abdomen: Soft, symmetric, minimal tenderness to light palpation; no distention; No masses or hepatosplenomegaly; no CVA tenderness MSK: No deformities; pulses palpable and equal; no edema. Neuro: Awake, alert; CN intact Psych: Appropriate mood and affect Nurse present in room at time of visit. Results & Data Results & Data Vital Signs (Past 12 Hours) Vital Signs Temp Pulse Pulse Resp BP BP Pulse Ox 10/07/24 18:26 54 L 16 100 10/07/24 18:16 49 L 25 H 141/83 H 100 10/07/24 17:49 36.6 C 63 15 151/93 H 100 10/07/24 17:12 69 10/07/24 17:05 62 25 H 147/86 H 100 10/07/24 16:22 54 L 15 100 10/07/24 16:22 37.4 C 54 L 14 126/74 100 10/07/24 14:02 36.9 C 99 H 20 145/90 H 97 O2 Del Method 10/07/24 18:26 Room Air 10/07/24 18:16 Room Air 10/07/24 17:49 Room Air 10/07/24 17:12 10/07/24 17:05 Room Air 10/07/24 16:22 Room Air 10/07/24 16:22 Room Air 10/07/24 14:02 Room Air Laboratory Results 10/07/24 16:30 Urine Culture - Pending Urine,Clean Catch 10/07/24 10/07/24 16:30 14:28 WBC 13.47 H RBC 4.43 Hgb 14.0 Hct 40.3 MCV 91.0 MCH 31.6 MCHC 34.7 RDW Std Deviation 41.3 RDW Coeff of Marybeth 12.5 Plt Count 362 MPV 9.2 L Immature Gran % (Auto) 0.4 Neut % (Auto) 82.5 Lymph % (Auto) 10.6 [place] % (Auto) 5.7 Eos % (Auto) 0.4 Baso % (Auto) 0.4 Neut # (Auto) 11.11 H Lymph # (Auto) 1.43 [place] # (Auto) 0.77 H Eos # (Auto) 0.06 Baso # (Auto) 0.05 Immature Gran # (Auto) 0.05 Sodium 138 Potassium 4.2 Chloride 102 Carbon Dioxide 26 Anion Gap 10 BUN 16 Creatinine 0.93 Est Cr Clr Drug Dosing 62.5 eGFR 71.69 BUN/Creatinine Ratio 17.2 Glucose 112 H Calcium 9.8 Total Bilirubin 0.6 AST 16 ALT 16 Alkaline Phosphatase 57 Total Protein 7.0 Albumin 4.8 Globulin 2.2 L Albumin/Globulin Ratio 2.2 H Lipase 31 Urine Color Yellow Urine Appearance Cloudy A Urine pH 6.5 Ur Specific [place] 1.025 Urine Protein Trace H Urine Glucose (UA) Negative Urine Ketones 2+ H Urine Blood 3+ H Urine Nitrite Negative Urine Bilirubin Negative Urine Urobilinogen Negative Ur Leukocyte Esterase 2+ H Urine WBC (Auto) 21-50 H Urine RBC (Auto) >20 H U Hyaline Cast (Auto) 3-5 H U Epithel Cells (Auto) 0-2 Urine Bacteria (Auto) 2+ H Diagnostic Findings Abdomen/Pelvis CT 10/07/24 16:19 CT ABDOMEN and PELVIS with INTRAVENOUS CONTRAST HISTORY: Abdominal pain TECHNIQUE: CT abdomen and pelvis with contrast. IV CONTRAST: 100 mL of OMNIPAQUE 300 ENTERIC CONTRAST: Not Given COMPARISON: CT abdomen pelvis March 10, 2017 FINDINGS: LOWER CHEST: Small atelectatic change in the right middle lobe. Mildly prominent paraaortic lymph nodes in the thorax are similar to previous LIVER: Scattered subcentimeter tiny hypodensities are incompletely characterized but likely to represent cysts or hemangiomas in the absence of significant past medical history. GALLBLADDER/BILIARY: Surgically absent gallbladder. There is prominence of the common bile duct and intrahepatic biliary dilation is also present. These findings may be related to the postcholecystectomy state. SPLEEN: Unremarkable. PANCREAS: Unremarkable. ADRENALS: Unremarkable. KIDNEYS: There is moderate right hydroureteronephrosis secondary to a 4 mm obstructing stone at the UVJ. PERITONEUM/RETROPERITONEUM. No lymphadenopathy by size criteria. No aortic aneurysm. GASTROINTESTINAL: No obstruction. Small hiatal hernia. Multiple loops of small bowel demonstrate inflammatory changes with wall thickening and mild fluid distention. There is also a very large quantity of desiccated stool within the large bowel. The appendix is normal. REPRODUCTIVE: Heterogeneous and somewhat bulky uterus likely with underlying fibroids. Likely Bartholin cyst over the vaginal canal URINARY BLADDER: Mildly inflamed. ABDOMINAL WALL: Nodular soft tissue densities are noted in the gluteal and lower back subcutaneous tissues, may represent injection granulomas. BONES: No acute findings. IMPRESSION: Obstructing 4 mm stone at the RIGHT UVJ resulting in moderate upstream hydroureteronephrosis. Findings suggesting enteritis as well as constipation. Appendix is normal. There are also findings that may suggest mild cystitis. Please correlate with urinalysis Bulky heterogeneous uterus likely due to underlying fibroids. Electronically signed by Daivd Eisenberg 10-07-2024 4:59 PM Code Status & VTE Plan Code Status Full VTE Prophylaxis Plan VTE Prophylaxis will be ordered: Yes Supervising Physician Co-Signing Physician Notes I personally saw and examined the patient. I independently reviewed the labs, EKG, imaging, problem list, medication list, past medical history and family history. I verified all levy points and agree with Jay Sandoval PA-C with the following exceptions and/or additions: 59 year old female presents to the ER with right sided abdominal pain and nausea which started earlier today. Urinary frequency for the last couple of days O/E HS reduced rate, regular rhythm, no murmurs, Chest CTAB, right sided abdominal pain without guarding or rebound tenderness A/P Obstructing ureterolithiasis with UTI - ceftriaxone, NPO, IV fluids, consult urology Otherwise as above PG Care Time/CCT Total # of Minutes Spent Total Time Spent with Patient: Total time spent is greater than 50% in coordination of care (as documented) at patient's floor/unit and/or counseling patient: Coding Level of Care Code 19992 INT INP/OBS CARE 2MIN Diagnoses Hydroureteronephrosis N13.30 UTI (urinary tract infection) N39.0 Bipolar disorder F31.9 Alcohol dependence in remission F10.21 Anxiety F41.9 Ureterolithiasis N20.1 Time Spent (min) 60
[2024-10-07] MEDS ORDERED: ACETAMINOPHEN 500 MG TAB PO PRN (21:14)
[2024-10-07] MEDS ORDERED: MoRPHine SULFATE 4 MG/ML 1 ML CARP\\VIAL IV PRN (21:14)
[2024-10-07] MEDS ORDERED: LAMOTRIGINE 100 MG SCH (21:14)
[2024-10-07] MEDS ORDERED: LAMOTRIGINE 25 MG SCH (21:14)
[2024-10-07] MEDS ORDERED: MoRPHine SULFATE 2 MG/ML CARP IV PRN (21:14)
[2024-10-07] MEDS ORDERED: ALBUTEROL HFA 8 GM INHALER INH PRN (21:14)
[2024-10-07] MEDS ORDERED: KETOROLAC TROMETHAMINE 15 MG/ML VIAL IV PRN (21:41)
[2024-10-07] MEDS: traZODone HCL 100 MG TAB PO SCH (21:58)
[2024-10-07] MEDS: busPIRone 5 MG TAB PO SCH (21:58)
[2024-10-07] MEDS: PLASMA-LYTE A 1,000 ML IV SCH (22:34)
--- NOTE | 2024-10-08 06:49 | Anesthesiology Consultation ---
Date of Service October 08, 2024 Assessment & Plan (1) Encounter for pre-operative examination: Chart Review Chart Review: Acceptable Risk for Surgery Consults Requested none ASA ASA3 Proposed Anesthesia Anesthesia Type: MAC Risk / Benefits Reviewed With: PT / POA / Parent / Guardian, Accepts Plan and Informed Consent Obtained History Surgery Operation Date: 10/08/24 07:30 Proposed Procedures p Cystoscopy, Right Retrograde, Right Stent Insertion.(Right) - Zion Kenney MD Height/Weight Height: 5 ft 6 in Weight: 76.204 kg Allergies Allergy/AdvReac Type Severity Reaction Status Date / Time levothyroxine Allergy Severe facial Verified 10/07/24 18:29 swelling minocycline [From Minocin] Allergy Mild Rash Verified 10/07/24 18:29 Sulfa (Sulfonamide Allergy Unknown PT DOESN'T Verified 10/07/24 18:29 Antibiotics) REMEMBER REACTION Medications Home Medications Medication Instructions Recorded Confirmed Last Taken fluticasone propionate 50 1 spray intranasal BID 02/18/22 10/07/24 10/07/24 mcg/actuation nasal spray,suspension azelastine 137 mcg (0.1 %) nasal 1 spray intranasal BID 05/15/22 10/07/24 10/07/24 spray anastrozole 1 mg tablet 1 mg PO QAM 07/22/22 10/07/24 08/12/23 09:00 albuterol sulfate 90 mcg/actuation 1 - 2 puff inhalation Q6H PRN SOB 05/12/23 10/07/24 Unknown aerosol inhaler or wheezing disulfiram 250 mg tablet 250 mg PO HS 07/31/23 10/07/24 10/06/24 naltrexone microspheres 380 mg 380 mg IM MONTHLY 07/31/23 10/07/24 2 Weeks Ago intramuscular suspension,extended ~09/23/24 release (Vivitrol) atorvastatin 40 mg tablet 40 mg PO DAILY 10/07/24 10/07/24 10/07/24 buspirone 10 mg tablet 10 mg PO BID 10/07/24 10/07/24 10/07/24 ergocalciferol (vitamin D2) 1,250 50,000 unit PO WK 10/07/24 10/07/24 09/26/24 mcg (50,000 unit) capsule lamotrigine 100 mg tablet,extended See Rx Instructions .Route .COMPLEX 11/10/07/24 10/07/24 release 24 hr lamotrigine 25 mg tablet,extended See Rx Instructions .Route .COMPLEX 10/07/24 10/07/24 10/07/24 release 24 hr lamotrigine 50 mg tablet,extended See Rx Instructions .Route .COMPLEX 10/07/24 10/07/24 10/07/24 release 24 hr pantoprazole 40 mg tablet,delayed 40 mg PO DAILY 10/07/24 10/07/24 10/07/24 release trazodone 100 mg tablet 200 mg PO HS 10/07/24 10/07/24 10/06/24 Active Medications Generic Name Dose Route Start Last Admin Trade Name Donq PRN Reason Stop Dose Admin Buspirone HCl 10 mg 10/07/24 21:14 10/07/24 21:58 Buspirone 5 Mg Tab PO 11/06/24 21:13 10 mg BID CASSANDRA Administration Parenteral Electrolytes 1,000 mls @ 125 mls/hr 10/07/24 22:15 10/08/24 06:34 Plasma-Lyte A Ph 7.4 IV 10/08/24 22:14 125 mls/hr .Q8H CASSANDRA Administration Trazodone HCl 200 mg 10/07/24 21:14 10/07/24 21:58 Trazodone Hcl 100 Mg Tab PO 11/06/24 21:13 200 mg HS CASSANDRA Administration NPO Date Last Intake of Fluids: 10/07/24 Time Last Intake of Fluids: 23:59 Date Last Intake of Solids: 10/07/24 Time Last Intake of Solids: 09:00 Past Medical History Medical History (Updated 10/08/24 @ 07:02 by Rita Norris DO) Bipolar disorder Anxiety GERD (gastroesophageal reflux disease) Esophagitis determined by endoscopy Hypothyroidism monitoring levels d/t allergy to levothyroxine Ventricular tachycardia from alcohol withdrawl Noncompliance with medication regimen PAF (paroxysmal atrial fibrillation) pt denies Alcohol withdrawal Schatzki's ring Dysphagia History of anesthesia reaction "04/2022-food bolus, removed under general anesthesia in the OR. Pt was extubated and didn't start breathing right away, so they reintubated her and took her to ICU; I told the doctors that I was definitely not drinking the day of my procedure either." Family history of colon cancer Alcoholism hx-quit drinking most recently 05/2023 - treated in [facility] for 10 days in patient and had her last episode of SVT in May 2023. Post traumatic stress disorder Elevated glucose level "watches her diet to keep my level stable" Elevated transaminase level hx Abnormal TSH "on the borderline'-monitoring it and no meds Palpitations "related to drinking, I had SVT's and if I don't drink, I don't have them; have been to the ER to have them checked" f/u Dr. 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 Huynh) last episode 05/2023. treated with adenosine IV in 05/2023. Exercise / Class Metabolic Activity II 4-5 Yardwork/Stairs/Walk up hill Past Family History Family History Mother Breast cancer, Onset Age: 76 Currently battling metastatic breast cancer Grandmother (Paternal) , Passed age 93 of stomach cancer No problems noted. Grandfather (Maternal) , Passed age 72 of colon cancer No problems noted. Father , Passed age 67 of complications from menigioma No problems noted. Aunt Breast cancer, Onset Age: 34 Alive and well Aunt Breast cancer, Onset Age: 62 alive and well Aunt Breast cancer, Onset Age: 62 Alive and well Brother Stroke Dementia Sister No problems noted. Son No problems noted. Other Family history non-contributory Past Surgical History Surgical History History of dilatation and curettage (~01/2023) for endometrial hyperplasia r/t tamoxifen History of dilation and curettage 2003 - s/p miscarriage History of mandibular surgery 1985 History of lumpectomy of right breast x2; radiation tx [id number] History of lumpectomy of left breast x1; x20 radiation tx., no chemo History of breast biopsy 11/30/2019 - Left Breast 02/08/2020 - Right Breast History of surgery 05/07/2016 - Anal Tag Removal H/O colonoscopy 05/01/2016 - perianal skin tag, normal colon H/O esophagogastroduodenoscopy 07/04/2009 - EUS exam- No choledocholithiasis, No masses appreciated in the entire pancreas. EGD exam- Normal examined duodenum. Bilious gastric fluid. Mild gastritis ? bilious etiology. Bx neg for H. pylori. Prominent fold just distal to GEJ. Bx- Squamocolumnar mucosa with mild carditis and hyperplastic changes. Negative for intestinal metaplasia and dysplasia. Medium sized hiatus hernia." On 03/10/17 15:26 Rita España wrote "07/04/2009- EUS exam- No choledocholithiasis, No masses appreciated in the entire pancreas. EGD exam- Normal examined duodenum. Bilious gastric fluid. Mild gastritis ? bilious etiology. This was biopsied to r/o H Pylori. Prominent fold just distal to GEJ. This was biopsied. Medium sized hiatus hernia." S/P laparoscopic cholecystectomy 02/23/2004 Past Anesthesia History No Hx of Anesthesia Complications and No Family Hx of Anesthesia Complications History of PONV No Hx of PONV and No Hx of Motion Sickness Social History Smoking Status: Never smoker Do You Dip or Chew Tobacco: No Hx Alcohol Use: No Alcohol type: wine alcohol intake frequency: 3 or more drinks per day Hx Substance Use: No substance use type: does not use Physical Exam Vital Signs Last Vital Signs Temp 36.7 C 10/08/24 03:46 Pulse 67 10/08/24 03:46 Resp 18 10/08/24 03:46 BP 98/60 L 10/08/24 03:46 Pulse Ox 97 10/08/24 03:46 O2 Del Method Room Air 10/08/24 03:46 ENMT Mouth: no TMJ abnormality and no dentition abnormality Thyromental Distance: > or= 3.5 Finger Breadths Mallampati Class: II Neck neck extension not limited Respiratory normal respiratory effort; no respiratory distress Auscultation: lungs clear to auscultation bilaterally Cardiovascular Rate/Rhythm: regular rate and regular rhythm Neurologic moves all extremities Psychiatric Orientation: alert and oriented x 3 Lab Results Anesthesia Preop Results Results Anesthesia Widget: 2 WBC 13.47 K/ul (4.8-10.8) H 10/07/24 Hgb 14.0 g/dl (12.0-16.0) 10/07/24 Hct 40.3 % (37.0-47.0) 10/07/24 Plt 362 K/uL (130-400) 10/07/24 Na 138 mmol/L (136-145) 10/07/24 K 4.2 mmol/L (3.5-5.1) 10/07/24 Cl 102 mmol/L (98-107) 10/07/24 CO2 26 mmol/L (21-32) 10/07/24 BUN 16 mg/dl (6-23) 10/07/24 Creat 0.93 mg/dl (0.6-1.2) 10/07/24 Glucose Level 112 mg/dl (70-99(Fasting)) H 10/07/24 Urine Color Yellow 10/07/24 Urine Appearance Cloudy (Clear) A 10/07/24 Urine pH 6.5 (4.5-7.5) 10/07/24 Urine Specific [place] 1.025 (1.000-1.030) 10/07/24 Urine Protein Trace (Negative) H 10/07/24 Urine Glucose (UA) Negative (Negative) 10/07/24 Urine Ketones 2+ (Negative) H 10/07/24 Urine Blood 3+ (Negative) H 10/07/24 Urine Nitrite Negative (Negative) 10/07/24 Urine Bilirubin Negative (Negative) 10/07/24 Urine Urobilinogen Negative (Negative) 10/07/24 Urine Leukocyte Esterase 2+ (Negative) H 10/07/24 Urine WBC (Auto) 21-50 /hpf (0-5) H 10/07/24 Urine RBC (Auto) >20 /hpf (0-2) H 10/07/24 Urine Hyaline Casts (Auto) 3-5 /lpf (0-2) H 10/07/24 Urine Epithelial Cells (Auto) 0-2 /hpf (0-2) 10/07/24 Urine Bacteria (Auto) 2+ (None Seen) H 10/07/24 Testing Laboratory Results 10/07/24 14:28 10/07/24 14:28 Urine Color Yellow 10/07/24 16:30 Urine Appearance Cloudy (Clear) A 10/07/24 16:30 Urine pH 6.5 (4.5-7.5) 10/07/24 16:30 Ur Specific [place] 1.025 (1.000-1.030) 10/07/24 16:30 Urine Protein Trace (Negative) H 10/07/24 16:30 Urine Glucose (UA) Negative (Negative) 10/07/24 16:30 Urine Ketones 2+ (Negative) H 10/07/24 16:30 Urine Nitrite Negative (Negative) 10/07/24 16:30 Ur Leukocyte Esterase 2+ (Negative) H 10/07/24 16:30 Urine WBC (Auto) 21-50 /hpf (0-5) H 10/07/24 16:30 Urine RBC (Auto) >20 /hpf (0-2) H 10/07/24 16:30 U Hyaline Cast (Auto) 3-5 /lpf (0-2) H 10/07/24 16:30 U Epithel Cells (Auto) 0-2 /hpf (0-2) 10/07/24 16:30 Urine Bacteria (Auto) 2+ (None Seen) H 10/07/24 16:30 Electrocardiogram Date: 10/07/24 Findings: + SB @ (50) septal infarct age indetermined Chest X-Ray Date: 01/03/24 FINDINGS: Lung volumes are normal. Lungs are clear. There is no pneumothorax or pleural effusion. Cardiac size is normal. Mediastinal contours are normal. There is no evidence for pulmonary edema. IMPRESSION: No acute cardiopulmonary findings. Echocardiogram Date: 06/01/21 EF: 55-60% LV Function: normal Other Findings: + diastolic dysfunction (gr2) Valvular Disease: + MR (mild)
[2024-10-08] MEDS ORDERED: LIDOCAINE 2% 2 ML VIAL/AMP(20MG/ML) INFIL ONE (06:52)
[2024-10-08] MEDS ORDERED: MIDAZOLAM HCL 1 MG/ML 2ML VIAL ONE (06:52)
[2024-10-08] MEDS ORDERED: ONDANSETRON INJ 2 MG/ML 2 ML VIAL ONE (06:52)
[2024-10-08] MEDS ORDERED: fentaNYL citrate PF 100 MCG/2 ML VIAL ONE (06:52)
[2024-10-08] MEDS ORDERED: PROPOFOL IV EMULSION 10 MG/ML 20 ML VIAL IV ONE ×3 (06:52→06:54)
[2024-10-08] MEDS ORDERED: KETOROLAC 30 MG/ML VIAL ONE (06:52)
--- OUTSIDE RECORDS SUMMARY | 2024-10-08 07:12 | External Medical Summary | Continuity of Care Document ---
Author Name Unknown Organization [facility] [id number] [place] [id number] Care Team Providers Care National Recruiter Name Role Phone Luís Dash Primary Care Physician [phone] [id number] Date[facility]s): 09/13/24 - 09/13/[address] [facility] [address] [facility] [address] [place] [address] [phone] Encounter Diagnosis Alcohol use disorder, severe, in early remission(Discharge Diagnosis) - 09/13/24 Discharge Disposition: Home or Self Care Attending Physician: DO Walton Gretchen Elizabeth Allergies, Adverse Reactions, Alerts Substance Criticality Severity Reaction Reaction Severity Status minocycline rash Active levothyroxine lip swelling Act samantha Assessment and Plan Extracted from: Title:Office Visit Note Author:DO Dash Nicho las Date:09/13/24 1.Alcohol use disorder, se shay, in early remission Chronic condition, at goal Goal: maintain sobriety Plan: Pt verbally consented forVivitrol injection. Vivitrol reconstituted according to package instructions. Correct site for injection identified and cleansed with alcohol prep pad. Injection administered in R gluteus latosha. Patient tolerated procedure well. Site dressed with adhesivebandage. Immunizations Given and Recorded Vaccine Date Status Refusal Reason SARS-CoV-2 (COVID-19) mRNA-vacc - [id number] 08/28/23 Recorded SARS-CoV-2 (COVID-19) mRNA BNT-162b2 vax 04/10/22 Recorded SARS-CoV-2 (COVID-19) mRNA BNT-162b2 vax 1 09/16/21 [...] Medications Albuterol (Eqv-ProAir HFA) Start: 04/16/23 9:25:00 AM EDT Start Date: 04/16/23 Status: Ordered anastrozole 1 mg oral tablet Start: 04/16/23 9:24:00 AM EDT, 1 tab, PO, Daily Start Date: 04/16/23 Status: Ordered Astelin 137 mcg/inh nasal spray Start: 04/16/23 4:36:00 PM EDT, 1 spray, each nostril, bid, Disp# 2 each, Refills: 3, Pharmacy: [facility] Start Date: 04/16/23 Status: Ordered atorvastatin 40 mg oral tablet Start: 06/23/24 11:34:00 AM EDT, 1 tab, PO, Daily, Disp# 90 tab, Refills: 3, Pharmacy: [facility] Start Date: 06/23/24 Status: Ordered BuSpar Start: 05/25/24 3:00:00 PM EDT Start Date: 05/25/24 Status: Ordered gabapentin 100 mg oral capsule TAKE 2 CAPSULES BY MOUTH TWICE A DAY Start Date: 07/21/24 Status: Ordered naltrexone 50 mg oral tablet Start: 02/23/24 11:26:00 AM EDT, 1 tab, PO, Daily, Disp# 30 tab, Refills: 1, Pharmacy: [id number] Start Date: 02/23/24 Status: Ordered Protonix 40 mg oral delayed release tablet Start: 09/06/24 4:23:00 PM EDT, 1 tab, PO, Daily, Disp# 90 tab, Refills: 3, Pharmacy: [id number] Start Date: 09/06/24 Stop Date: 09/01/25 Status: Ordered pseudoephedrine Start: 04/16/23 9:27:00 AM EDT, 120 mg =, PO, q12h, PRN: as needed for cold symptoms Start Date: 04/16/23 Status: Ordered traZODone 100 mg oral tablet TAKE 2 TABLET BY MOUTH EVERY NIGHT AT BEDTIME Start Date: 07/21/24 Status: Ordered Vivitrol 380 mg intramuscular injection, extended release Start: 03/01/24 1:34:00 PM EDT, 380 mg =, IM, [id number], Disp# 1 each, Refills: 11, Pharmacy: [facility] Start Date: 03/01/24 Status: Ordered ZyrTEC 10 mg oral tablet Start: 04/16/23 4:36:00 PM EDT, 1 tab, PO, Daily, Disp# 90 tab, Refills: 3, PRN: as needed for allergy symptoms, Pharmacy: [facility] Start Date: 04/16/23 Status: Ordered Mental Status 09/13/24 Barriers to Learning one year None evide nt Mandatory Health Literacy Documentation Yes Health Literacy Communication Barriers N ever Primary Language Togolese Problem List Condition Confirmation Course Effective Dates Status H ealth Status Informant Alcohol use disorder, severe, in early remission Confirmed Active Dizziness Confirmed Active Dysphagia Confirmed Active Grief Confirmed Active Hyperlipidemia Confirmed Active Impaired fasting glucose Confirmed Active Imbalance Confirmed Active Elevated LFTs Confirmed Active Schatzki's ring Confirmed Active Breast CA Confirmed Active Bipolar I disorder with almas Confirmed Active Mood disorder Confirmed Active Hospital discharge follow-up Confirmed Active SVT (supraventricular tachycardia) Confirmed Active Diagnosis Diagnosis Type Effective Dates Health Status Cl inical Service Informant Alcohol use disorder, severe, in early remission Discharge Diagnosis 09/13/24 Procedures Procedure Date Related Diagnosis Body Site [...] 10 years for screening purposes. 16breast ca ER/ME+ Vital Signs Most recent to oldest [Reference Range]: 1 Patient Weight 76.7 kg (09/13/24 1:46 PM) Temperature [36.5-37.9 DegC] 36.9 DegC (09/13/24 1:46 PM) Blood Pressure 118/78mmHg (09/13/24 1:46 PM) BP Location # 1 Left Arm (09/13/24 1:46 PM) Social History Social History Type Response Smoking Status Never smoked cigaret akira Sex Female Sex Representation Female (finding) FCM Outpt Note * DO Walton Gretchen Elizabeth: MODIFY DO Walton Gretchen Elizabeth: MODIFY Event Display: FCM Outpt Note Authored Date: [id number] Chief Complaint Here for vivitrol injection. History of Present Illness 58 yo female here for f/u EtOH disorder. Here for Vivitrolinjection. EtOH use disorder: maintaining sobriety, now for 15mo. Attending daily AA meetings. She looks great today. Psychiatry has changed her medications. No longer unstable, physically.No longer using a cane. Physical Exam Vitals & Measurements T:36.9C BP:118/78 SpO2:97% WT:76.700kg(Dosing) WT:76.7kg PHQ2 Data(Data Documented on:09/13/2024 13:45) Emotional health assessment NEGATIVE Gen: well appearing female in NAD HEENT: AT NC CV: clinically well perfused Resp: no increased work of breathing Abd: non-distended MSK: no obvious deformities Skin: no bruising or rashes noted Psych: appropriate mood and affect Neuro: alert and oriented Assessment/Plan 1.Alcohol use disorder, severe, in early remission Chronic condition, at goal Goal: maintain sobriety Plan: Pt verbally consented forVivitrol injection. Vivitrol reconstituted according to package instructions. Correct site for injection identified and cleansed with alcohol prep pad. Injection administered in R gluteus latosha. Patient tolerated procedure well. Site dressed with adhesivebandage. Attestation Patient seen and examined in concert with Dr. Dash, agree with history and physical documented above. Patient doing well, she continues engagement in community efforts to maintain abstinence, working with psychiatry to improve mental health. No longer in early remission, rather sustained as >1yr. Plan reviewed in detail and patient understanding. Problem List/Past Medical History Ongoing Alcohol use disorder, severe, in early remission Bipolar I disorder with almas Breast CA Dizziness Dysphagia Elevated LFTs Grief Hospital discharge follow-up Hyperlipidemia Imbalance Impaired fasting glucose Mood disorder Schatzki's ring SVT (supraventricular tachycardia) Procedure/Surgical History EGD - Esophagogastroduodenoscopy| Service Date: 08/12/2023EGD - Esophagogastroduodenoscopy| Service Date: 05/12/2023hest x-ray| Service Date: 3DILATION AND CURETTAGE| Service Date: 01/2023Upper GI (gastrointestinal) endoscopy| Service Date: 06/30/2022elvic sonogram| Serv ice Date: 2Radiography of chest| Service Date: 05/13/2022hest x- ray| Service Date: 05/13/2022EGD - Esophagogastroduodenoscopy| Service Date: 05/13/2022hest X-ray| Service Date:2Colonoscopy| Service Date: 02/19/2022AP test date| Service Date: 02/06/2022olysomnography| Service Date: 02/04/2022MRI of bilateral breasts w w/o contrast| Service Date: iagnostic mammogram| Service Date: 11/22/2021olonoscopy| Service Date: 05/01/2016Removal of gallbladder| Service Date: 2002Lumpectomy of breast Medications albuterol(Albuterol (Eqv-ProAir HFA)) anastrozole(anastrozole 1 mg oral tablet), 1 mg= 1 tab, PO, Daily atorvastatin(atorvastatin 40 mg oral tablet), 40 mg= 1 tab, PO, Daily, 3 refills azelastine nasal(Astelin 137 mcg/inh nasal spray), 1 spray, each nostril, bid, 3 refills busPIRone(BuSpar) cetirizine(ZyrTEC 10 mg oral tablet), 10 mg= 1 tab, PO, Daily, PRN, 3 refills gabapentin(gabapentin 100 mg oral capsule) naltrexone(naltrexone 50 mg oral tablet), 50 mg= 1 tab, PO, Daily, 1 refills naltrexone(Vivitrol 380 mg intramuscular injection, extended release), 380 mg, IM, [id number], 11 refills pantoprazole(Protonix 40 mg oral delayed release tablet), 40 mg= 1 tab, PO, Daily, 3 refills pseudoephedrine, 120 mg, PO, q12h, PRN traZODone(traZODone 100 mg oral tablet) Allergies levothyroxinelip swelling minocyclinerash Social History Smoking Status Never smoked cigarettes Family History Breast cancer: Mother. Hypertension: Father. Type II diabetes mellitus: Father. Vision disorder: Mother. Health Status Family Member(s) Immunizations Vaccine Date Status SARS-CoV-2 (COVID-19) mRNA-vacc - [id number] 08/28/2023 Recorded SARS-CoV-2 (COVID-19) mRNA BNT-162b2 vax 04/10/2022 Recorded SARS-CoV-2 (COVID-19) mRNA BNT-162b2 vax 09/16/2021 Recorded [...] the next year) OverDue Adult Influenza Vaccine due05/22/24and every 1year Due Adult COVID-19 Vaccination due09/13/24Unknown Frequency Adult Social Determinants of Health Screening due09/13/24Unknown Frequency Hepatitis C Screening due09/13/24One-time only Pneumococcal Vaccine Adults and Adolescents with Chronic Illness due09/13/24One-time only Due In Future Cervical Cancer Screening not due until02/05/25and every 3year Satisfied(in the past 1 year) Satisfied Body Mass Index on08/19/24.Satisfied by ISELA Wheeler Paul Depression Follow Up Plan on08/19/24.Satisfied by ISELA Wheeler Paul Electronic Signature on File Electronically Reviewed/Signed by: Luís Dash DO Author Signature Dt/Tm:09/13/2024 02:14 PM Resident Department of Family Medicine Electronically Reviewed/Signed by: Beth Hankinsignlupe Signature Dt/Tm: 09/15/2024 08:05 AM Department of Family Medicine [place] Patient Care team information Care Team Personnel Name: DO Dash Nicholas Position: Resident Member Role: Primary Care Provider Address: [address] [place] [address] [place] [address] [place] Care Team Related Persons Name: PINA MORRISON"
--- OUTSIDE RECORDS SUMMARY | 2024-10-08 07:12 | External Medical Summary | Continuity of Care Document ---
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 Name Role Phone Luís Dash Primary Care Physician [phone] [facility] [id number] Date(s): 08/19/24 - 08/19/24 [facility] [address] [facility] [address] [place] [id number] [place] [phone] Encounter Diagnosis Body mass index [BMI] 26.0-26.9, adult(Discharge Diagnosis) - 08/19/24 Alcohol use disorder, severe, in early remission(Discharge Diagnosis) - 08/19/24 LOC (loss of consciousness)(Discharge Diagnosis) - 08/19/24 Fall at home(Discharge Diagnosis) - 08/19/24 Discharge Disposition: Home or Self Care Attending Physician: DO Walton Gretchen Elizabeth Allergies, Adverse Reactions, Alerts Substance Criticality Severity Reaction Reaction Severity Status minocycline rash Active levothyroxine lip swelling Act samantha Immunizations Given and Recorded Vaccine Date Status Refusal Reason SARS-CoV-2 (COVID-19) mRNA-vacc - [id number] 08/28/23 Recorded SARS-CoV-2 (COVID-19) mRNA BNT-162b2 vax [...] Disp# 2 each, Refills: 3, Pharmacy: [facility] Start Date: 04/16/23 Status: Ordered atorvastatin 40 mg oral tablet Start: 06/23/24 11:34:00 AM EDT, 1 tab, PO, Daily, Disp# 90 tab, Refills: 3, Pharmacy: [facility] Start Date: 06/23/24 Status: Ordered buPROPion 75 mg oral tablet Start: 08/19/24 10:05:00 AM EDT, 1 tab, PO, Daily Start Date: 08/19/24 Status: Ordered BuSpar Start: 05/25/24 3:00:00 PM EDT Start Date: 05/25/24 Status: Ordered Flonase 50 mcg/inh nasal spray Start: 12/28/23 2:16:00 PM EST, 1 spray, each nostril, Daily, Disp# 16 g, Refills: 5, Pharmacy: [facility] Start Date: 12/28/23 Status: Ordered gabapentin 100 mg oral capsule TAKE 2 CAPSULES BY MOUTH TWICE A DAY Start Date: 07/21/24 Status: Ordered lamoTRIgine Start: 04/25/24 3:33:00 PM EDT, 175mg daily Start Date: 04/25/24 Status: Ordered Melatonin 5 mg oral tablet Start: 11/13/21 10:28:00 AM EST, 1 tab, PO, qhs, PRN: Insomnia Start Date: 11/13/21 Status: Ordered naltrexone 50 mg oral tablet Start: 02/23/24 11:26:00 AM EDT, 1 tab, PO, Daily, Disp# 30 tab, Refills: 1, [facility]acy: [id number] Start Date: 02/23/24 Status: Ordered propranolol 10 mg oral tablet Start: 09/11/23 4:23:00 PM EDT, 1 tab, PO, bid, Disp# 60 tab, Pharmacy: [id number] Start Date: 09/11/23 Status: Ordered Protonix 40 mg oral delayed release tablet Start: 06/23/24 11:35:00 AM EDT, 1 tab, PO, Daily, Disp# 90 tab, Refills: 3, Pharmacy: [facility] Start Date: 06/23/24 Stop Date: 06/18/25 Status: Ordered pseudoephedrine Start: 04/16/23 9:27:00 AM EDT, 120 mg =, PO, q12h, PRN: as needed for cold symptoms Start Date: 04/16/23 Status: Ordered sulfamethoxazole-trimethoprim 800 mg-160 mg oral tablet Start: 07/21/24 12:04:00 PM EDT, trimethoprim 1 tab, PO, bid, Disp# 14 tab, Pharmacy: [id number] Start Date: 07/21/24 Status: Ordered traZODone 100 mg oral tablet TAKE 2 TABLET BY MOUTH EVERY NIGHT AT BEDTIME Start Date: 07/21/24 Status: Ordered Vivitrol 380 mg intramuscular injection, extended release Start: 03/01/24 1:34:00 PM EDT, 380 mg =, IM, [id number], Disp# 1 each, Refills: 11, Pharmacy: [facility] Start Date: 03/01/24 Status: Ordered ziprasidone 20 mg oral capsule bid Start Date: 07/21/24 Status: Ordered ZyrTEC 10 mg oral tablet Start: 04/16/23 4:36:00 PM EDT, 1 tab, PO, Daily, Disp# 90 tab, Refills: 3, PRN: as needed for allergy symptoms, Pharmacy: [facility] Start Date: 04/16/23 Status: Ordered Mental Status 08/19/24 Barriers to Learning one year None evide nt Mandatory Health Literacy Documentation Yes Health Literacy Communication Barriers N ever Primary Language Ghanaian Problem List Condition Confirmation Course Effective Dates [...] inical Service Informant Body mass index [BMI] 26.0-26.9, adult Discharge Diagnosis 08/19/24 Non-Specified Alcohol use disorder, severe, in early remission Discharge Diagnosis 08/19/24 Non-Specified LOC (loss of consciousness) Discharge Diagnosis 08/19/24 Non-Specified Fall at home Discharge Diagnosis 08/19/24 Non-Specified Procedures Procedure Date Related Diagnosis Body Site [...] Colonoscopy 15 05/01/16 Completed Removal of gallbladder 2003 Co mpleted Lumpectomy of breast 16 C [...] 10 years for screening purposes. 16breast ca ER/CT+ Vital Signs Most recent to oldest [Reference Range]: 1 Height 170 cm (08/19/24 10:06 AM) Patient Weight 76.3 kg (08/19/24 10:06 AM) Body Mass Index 26.4 kg/m2 (08/19/24 10:06 AM) Heart Rate 88 bpm (08/19/24 10:06 AM) Respiratory Rate 12 br/min (08/19/24 10:06 AM) Blood Pressure 98/60mmHg (08/19/24 10:06 AM) Cuff Pulse Pressure 38 mmHg (08/19/24 10:06 AM) Social History Social History Type Response Smoking Status Never smoked cigaret akira Sex Female Sex Representation Female (finding) Patient Care team information Care Team Personnel Name: DO Dash Nicholas Position: Resident Member Role: Primary Care Provider Address: [address] [place] [address], [place] [address] Care Team Related Persons Name: PINA MORRISON
--- OUTSIDE RECORDS SUMMARY | 2024-10-08 07:12 | External Medical Summary | Summary of Care ---
Author Name Unknown Organization [facility] Address [address] [place] [address] Phone [phone] Care Team Providers Care Hha Name Role Phone Kanika Walton DO Primary Care Provi apolonia Reason for Referral * Precert (Diagnostic Medical) (Within 10 days (routine)) - Authorized Specialty Diagnoses / Procedures Referred By Contgerman t Referred To Contact Cardiac Studies Diagnoses PSVT (paroxysmal supraventricular tachycardia) (HCC) Syncope, unspecified syncope type Procedures ECHO, COMPLETE (2D), TRANS-THORACIC Tara Interiano CRNP [address] [place] [address] Phone: tel: fax: Referral ID Status Reason Start Date Expiration Date V isits Requested Visits Authorized [id number] Authorized Precert 10/25/2024 999 999 Reason for Visit * Reason Onset Date Comments Cardiology Study 10/05/2024 Encounter Details Date Type Department Care Team (Late st Contact Info) Description 10/05/2024 Telephone Cardiac Studies, [facility] [address] [place] [address] Tara Interiano CRNP [address] [place] [address] Cardiology Study Allergies Active Allergy Reactions Criticality Noted Date Comments Levothyroxine Edema face/lips/tongue High 06/20/2020 Edema to lips only per pt Minocycline Hcl Rash 08/13/2010 Alcohol 01/22/2023 Reaction with medication documented as of this encounter (statuses as of 10/05/2024) Medications Disulfiram 250 MG Oral Tablet Take by mouth daily. Active Albuterol Sulfate (TO GO ALBUTEROL HFA) IN puff Inhale 1 Puff by mouth every 4 hours as needed for Wheezing. Active Cetirizine HCl 10 MG Oral Tablet 1 Tablet. 2 Active traZODone HCl 100 MG Oral Tablet (Desyrel) Take 2 Tablets by mouth at bedtime. Active Azelastine HCl 0.1 % Nasal Solution Administer 1 Tivoli into nostril in the morning and 1 Tivoli before bedtime. Active Acetaminophen 325 MG Oral Tablet (Tylenol) Take 2 Tablets by mouth every 6 hours as needed for Pain, Mild. 60 Tablet 01/22/2023 10:50 AM EST 3 Active Additional Information Patient not taking.Reported on 05/11/2024 Pantoprazole Sodium 40 MG Oral Tablet Delayed Release (Protonix) Take 1 Tablet by mouth in the morning. Takes at night . Active Vivitrol 380 MG Intramuscular Suspension Reconstituted (naltrexone depot) Inject into a large muscle once. Active Pseudoephedrine HCl ER 120 MG Oral Tablet Extended Release 12 Hour Take 1 Tablet by mouth in the morning and 1 Tablet before bedtime. Active B Complex Vitamins Oral Capsule Take 1 Capsule by mouth in the morning. 3 Active lamoTRIgine 100 MG Oral Tablet (LaMICtal) Take 1.75 Tablets by mouth in the morning. 3 Active Ibuprofen 600 MG Oral Tablet (Motrin) Take 1 Tablet by mouth in the morning and 1 Tablet at noon and 1 Tablet before bedtime. With meals.. 30 Tablet 12/31/2023 4:16 PM EST 4 Active Anastrozole 1 MG Oral Tablet (Arimidex)Indicat ions:Ductal carcinoma in situ (DCIS) of left breast TAKE 1 TABLET BY MOUTH EVERY DAY IN THE MORNING 30 Tablet 11 4 Active Atorvastatin Calcium 40 MG Oral Tablet (Lipitor) Take 1 Tablet by mouth in the morning. Active busPIRone HCl 10 MG Oral Tablet (Buspar) Take 2 Tablets by mouth in the morning and 2 Tablets before bedtime. Active Vitamin D (Ergocalciferol) 1.25 MG (64264 UT) Oral Capsule (Drisdol) Take 1 Capsule by mouth once a week. 4 Active documented as of this encounter (statuses as of 10/05/2024) Active Problems Problem Noted Date Diagnosed Date DCIS (ductal carcinoma in situ) 02/28/2020 Severe episode of recurrent major depressive disorder, without psychotic features 01/20/2020 Alcohol dependence with withdrawal, uncomplicate d 01/20/2020 PSVT (paroxysmal supraventricular tachycardia) 0 06/05/2014 Dyslipidemia, goal LDL below 130 06/05/2014 Sleep apnea 02/06/2006 Rosacea 04/07/2003 COMMON MIGRAINE WITHOUT MENTION OF INTRACTABLE M IGRAINE 04/07/2003 Major depressive disorder 04/07/2003 Overview (09/15/2017): ICD-10 update of inactive term Insomnia 04/07/2003 Overview (08/24/2017): ICD-10 update of inactive term Mild intermittent asthma without complication documented as of this encounter (statuses as of 10/05/2024) Resolved Problems Problem Noted Date Diagnosed Date Resolved Date ADVANCE DIRECTIVE INFORMATION 11/03/2005 09/26/2024 Overview (11/03/2005): No, Advance Directive brochure given to patient. CHOLELITH W AC CHOLECYST 02/22/2004 documented as of this encounter (statuses as of 10/05/2024) Immunizations Name Administration Dates Next Due COVID-19 mRNA, LNP-s, No Pre serve, 2-Dose Series (Moderna) 01/24/2021,12/27/2020 COVID-19 mRNA, LNP-s, No Pre serve, 2-Dose Series (Pfizer) 09/16/2021 Pneumococcal Polysaccharide PPV23 (Pneumovax) 03/20/2017 Seasonal Influenza Vac., MDV , IM, 0.5 mL (Fluzone) 12/14/2014,09/06/2013,07/17/2012,08/14 Seasonal Influenza, PF, 6 M & above, IM , (FluLaval or Fluzone) 08/28/2023,09/19/2020,11/06/2019,11/30 Seasonal Influenza, Quadriva lent, No Preserve, IM 10/07/2021 TDAP (age 10 and older)(Boostrix) 06/06/2021 TDAP, Age 7 and older, IM (Adacel) 12/20/2010 Zoster Vaccine Recombinant (Shingrix) 04/26/2020 ,01/20/2020 documented as of this encounter Social History Tobacco Use Types Packs/Day Years Used Date Smoking Tobacco: Never Smokeless Tobacco: Never Alcohol Use Standard Drinks/Week Comments No 8.3 (1 standard drin k = 0.6 oz pure alcohol) none currrently, rehab 02/2015, current rehab PHQ-2 Answer Date Recorded PHQ-2 Score 3 06/20/2020 Utilities Answer Date Recorded Do you have trouble paying y our heating, water, or electric bill? (Adult - for ages 18 years and over) Not on file 05/10/2024 Is your family able to pay t he heat, water, or electric bill? (Household - for ages 0-17 years) Not on file 05/10/2024 Does your family have access to good internet? (Household - for ages 0-17 years) Not on file 05/10/2024 Social Connections Answer Date Recorded How often do you feel lonely or isolated from those around you? 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 Placement of zio patch interferred with the ability to perform echo. Echo will be completed once zio is removed.New order placed. documented in this encounter Plan of Treatment Upcoming Encounters Date Type Department Care Team (Late st Contact Info) Description 10/25/2024 11:00 AM EST Cardiac Studies Cardiac Studies, [facility] [address] [place] [address] 11/07/2024 2:30 PM EST Office Visit Hematology/Oncology [facility] [address] [place], [place] [phone] Neo Vargas MD [address] [place] [address] 11/22/2024 11:30 AM EST Imaging Radiology, [facility] [address] [place] [address] 01/20/2025 1:30 PM EST Office Visit Dermatology [facility] [address] [place] [address] Johnny Read MD [address] [place] [address] Scheduled Orders Name Type Priority Associated Diagnoses Orde r Schedule ECHO, COMPLETE (2D), TRANS-THORACIC Echocardiology Routine PSVT (paroxysmal supraventricular tachycardia) (HCC) Syncope, unspecified syncope type Expected: 10/25/2024 (Approximate), Expires: 01/05/2025 Scheduled Procedures Name Priority Associated Diagnoses Date/Ti me COLONOSCOPY FLEXIBLE PROXIMA L DIAGNOSTIC Recall Special screening for malignant neoplasms, colon Health Maintenance Due Date Last Done Comments Hepatitis B Vaccine (1 of 3 - 19+ 3-dose series) 1986 HPV/Co-Test 1997 Cologuard 2012 Fecal Occult Blood Test 2012 Sigmoidoscopy 2012 Pneumococcal Vaccine: Pediatrics (0 to 5 Years) and At-Risk Patients (6 to 64 Years) (2 of 2 - PCV) 03/20/2018 03/20/2017 Depression Monitoring 06/20/2021 06/20/2020 *SPIROMETRY ONCE FOR ASTHMA-ADULT 10/16/2022 COVID-19 Vaccine ( season) 2024 08/28/2023, 04/10/2022, 11/23/2021, Additional history exists Influenza Vaccine (FLU shot) (#1) 2024 08/28/2023, 10/07/2021, 09/19/2020, Additional history exists Cervical Cancer Screening 02/06/2025 Pap Smear 02/06/2025 02/06/2022, 04/2019, 09/28/2019, Additional history exists Mammogram 04/19/2025 04/19/2024, 03/24, 11/04/2021, Additional history exists Colonoscopy 05/01/2026 05/01/2016, 07/2016, 11/26/2005 Colorectal Cancer Screening 05/01/2026 Diabetes Screening 10/27/2026 10/27/2023, 0 12/18/2021, 12/20/2020, Additional history exists DTap/Tdap Vaccines (3 - Td or Tdap) 06/06/2031 06/06/2021, 12/20/2010 Zoster Vaccines Completed 04/26/2020, 01/20/2020 HPV (Gardasil) Vaccine Aged Out No lo nger eligible based on patient's age to complete this topic MENINGOCOCCAL (MENACTRA/MENVEO) Aged Out No longer eligible based on patient's age to complete this topic documented as of this encounter Medical Devices Not on filedocumented as of this encounter Visit Diagnoses Diagnosis Syncope, unspecified syncope type- Primary PSVT (paroxysmal supraventricular tachycardia) (HCC) Paroxysmal supraventricular tachycardia documented in this encounter Advance Directives * Full Code (Latest Code Status on File) Date Activated Date Inactivated Comments 05/07/2016 7:51 AM 05/07/2016 2:51 PM . Care Teams Hha Relationship Specialty Start Date End Date Kanika Walton DO [address] [place] [address] PCP - General Family Medicine 12/31/23 documented as of this encounter
--- OUTSIDE RECORDS SUMMARY | 2024-10-08 07:12 | External Medical Summary | Summary of Care ---
Author Name Unknown Organization [facility] Address [address] [place] [address] Phone [phone] Care Team Providers Care Disciplinary Hearing Officer Name Role Phone Kanika Walton DO Primary Care Provi apolonia Reason for Referral * Precert (Diagnostic Medical) (Within 10 days (routine)) - Authorized Specialty Diagnoses / Procedures Referred By Contgerman t Referred To Contact Cardiac Studies Diagnoses PSVT (paroxysmal supraventricular tachycardia) (HCC) Syncope, unspecified syncope type Procedures ECHO, COMPLETE (2D), TRANS-THORACIC Tara Interiano CRNP [address] [place] [address] Phone: tel: fax: Referral ID Status Reason Start Date Expiration Date V isits Requested Visits Authorized [id number] Authorized Precert 10/05/2024 999 999 Reason for Visit * Reason Comments Follow Up Encounter Details Date Type Department Care Team (Latest Contact Info) Description 10/04/2024 8:30 AM EST [facility] [place] [address] Tara Interiano CRNP [address] [facility] [place] [id number] PSVT (paroxysmal supraventricular tachycardia) (HCC)*; Syncope, unspecified syncope type Allergies Active Allergy Reactions Criticality Noted Date Comments Levothyroxine Edema face/lips/tongue High 06/20/2020 Edema to lips only per pt Minocycline Hcl Rash 08/13/2010 Alcohol 01/22/2023 Reaction with medication documented as of this encounter (statuses as of 10/04/2024) Medications Disulfiram 250 MG Oral Tablet Take by mouth daily. Active Albuterol Sulfate (TO GO ALBUTEROL HFA) IN puff Inhale 1 Puff by mouth every 4 hours as needed for Wheezing. Active Cetirizine HCl 10 MG Oral Tablet 1 Tablet. 02/04/20 22 Active traZODone HCl 100 MG Oral Tablet (Desyrel) Take 2 Tablets by mouth at bedtime. Active Azelastine HCl 0.1 % Nasal Solution Administer 1 Richardson into nostril in the morning and 1 Richardson before bedtime. Active Acetaminophen 325 MG Oral Tablet (Tylenol) Take 2 Tablets by mouth every 6 hours as needed for Pain, Mild. 60 Tablet 3 10:50 AM EST 01/23/20 23 Active Additional Information Patient not taking.Reported on [...] 1 Capsule by mouth in the morning. 06/23/20 23 Active lamoTRIgine 100 MG Oral Tablet (LaMICtal) Take 1.75 Tablets by mouth in the morning. 08/18/20 23 Active Ibuprofen 600 MG Oral Tablet (Motrin) Take 1 Tablet by mouth in the morning and 1 Tablet at noon and 1 Tablet before bedtime. With meals.. 30 Tablet 4 4:16 PM EST 12/31/19 24 Active Anastrozole 1 MG Oral Tablet (Arimidex)Indica tions:Ductal carcinoma in situ (DCIS) of left breast TAKE 1 TABLET BY MOUTH EVERY DAY IN THE MORNING 30 Tablet 11 04/20/20 24 Active Atorvastatin Calcium 40 MG Oral Tablet (Lipitor) Take 1 Tablet by mouth in the morning. Active busPIRone HCl 10 MG Oral Tablet (Buspar) Take 2 Tablets by mouth in the morning and 2 Tablets before bedtime. Active Vitamin D (Ergocalciferol) 1.25 MG (19289 UT) Oral Capsule (Drisdol) Take 1 Capsule by mouth once a week. 10/02/20 24 Active gabapentin (NEURONTIN) 100 MG Capsule 2 Capsules in the morning and 2 Capsules at noon and 2 Capsules in the evening and 2 Capsules before bedtime. 0 03/20/20 17 2023 Discontinued Omeprazole 20 MG Oral Capsule Delayed Release (PriLOSEC) Take 1 Capsule by mouth in the morning. 2023 Discontinued Fluticasone Propionate 50 MCG/ACT Nasal Suspension Administer 2 Sprays into nostril in the morning and 2 Sprays in the evening. 2023 Discontinued Ibuprofen 600 MG Oral Tablet (Motrin) Take 1 Tablet by mouth every 6 hours as needed (pain, mild). With meals. 30 Tablet 3 10:50 AM EST 01/23/20 23 2023 Discontinued Melatonin 5 MG Oral Capsule 1 Capsule. 11/13/20 21 2023 Discontinued Benztropine Mesylate 1 MG Oral Tablet (Cogentin) Take 1 Tablet by mouth in the morning and 1 Tablet before bedtime. 09/11/20 23 2023 Discontinued Folic Acid 400 MCG Oral Tablet Take 1 Tablet by mouth in the morning. 08/11/20 23 2023 Discontinued Propranolol HCl 10 MG Oral Tablet (Inderal) Take 1 Tablet by mouth in the morning and 1 Tablet at noon and 1 Tablet in the evening and 1 Tablet before bedtime. 09/11/20 23 2023 Discontinued Atorvastatin Calcium 20 MG Oral Tablet (Lipitor) Take 1 Tablet by mouth in the morning. Takes in the evening . 07/06/20 23 2023 Discontinued Ziprasidone HCl 40 MG Oral Capsule (Geodon) Take 1 Capsule by mouth 2 times a day with morning and evening meals. 2023 Discontinued documented as of this encounter (statuses as of 10/04/2024) Active Problems Problem Noted Date Diagnosed Date [...] as of this encounter (statuses as of 10/04/2024) Resolved Problems Problem Noted Date Diagnosed Date Resolved Date ADVANCE DIRECTIVE INFORMATION 11/03/2005 09/26/2024 Overview (11/03/2005): No, Advance Directive brochure given to patient. CHOLELITH W AC CHOLECYST 02/22/2004 documented as of this encounter (statuses as of 10/04/2024) Immunizations Name Administration Dates Next Due COVID-19 [...] Sign Reading Time Taken Comments Blood Pressure 120/78 10/04/2024 8:36 AM EST Pulse 68 10/04/2024 8:36 AM EST Temperature - - Respiratory Rate 16 10/04/2024 8:36 AM EST Oxygen Saturation - - Inhaled Oxygen Concentration - - Weight 76.2 kg (168 lb) 10/04/2024 8:36 AM EST Height - - Body Mass Index 27.12 12/31/2023 1:23 PM EST documented in this encounter Progress Notes * Tara Interiano CRNP - 10/04/2024 8:30 AM EST Images from the original note were not included. 10/04/2024 Cardiology Follow Up Primary Pharmacy Benefits Coordinator: NIDHI; formerly Dr. Healy Cardiac Problems: 1. Alcoholism, in remission 2. Episode of sustained ventricular tachycardia during alcohol withdrawal in the setting of hypokalemia 3. Hypertension 4. Elevated LFT's while drinking, now resolved 5. Sleep apnea 6. Migraines 7. Dyslipidemia statin currently on hold due to transaminitis HPI: Brigid Perla is a 59 year old female presents for an acute cardiology visit. Last seen in our office dating back to May [address] Healy. Patient presents today feeling poorly. Complains of severe dizziness, palpitations, and has fallen multiple times. Also reports a syncope spell last month. Patient states that she was feeling well the day of her syncopal episode, she had tilted her head back and next thing she knew she woke up on the floor. She underwent a CT scan which showed no acute bleed at that time. She has not had one since. She reports multiple falls and ataxia last fall, but attributes it to polypharmacy. BP well controlled. Compliant on her current medication therapies. Abstinent from ETOH for over 16 months. REVIEW OF SYSTEMS: See HPI for pertinent positives. All others negative other than those noted in the HPI. CONSTITUTIONAL: No change in weight, No weakness, No fatigue and No fevers, No sweats or chills. PULMONARY: No cough, sputum, or hemoptysis, No wheezing, No shortness or breath and No recent change in breathing. CARDIOVASCULAR: No chest pain, No dyspnea on exertion, No edema, No palpitations and No syncope. GASTROINTESTINAL: No abdominal pain, No change in bowel habits, No significant heartburn, No nausea, No vomiting, No diarrhea, No constipation, No blood in stools or black tarry stools. No dysphagia. HEMATOLOGIC: No abnormal bleeding and No bruising. NEUROLOGICAL: Normal balance, No headaches and No weakness. Review of patient's allergies indicates: Allergen Reactions Levothyroxine Edema face/lips/tongue Edema to lips only per pt Minocycline Hcl Rash Purell Instant Hand [Alcohol] Reaction with medication Current Outpatient Medications Medication Sig Dispense Refill Disulfiram 250 MG Oral Tablet Take by mouth daily. Albuterol Sulfate (TO GO ALBUTEROL HFA) IN puff Inhale 1 Puff by mouth every 4 hours as needed for Wheezing. Cetirizine HCl 10 MG Oral Tablet 1 Tablet. traZODone HCl 100 MG Oral Tablet (Desyrel) Take 2 Tablets by mouth at bedtime. Azelastine HCl 0.1 % Nasal Solution Administer 1 Richardson into nostril in the morning and 1 Richardson before bedtime. Pantoprazole Sodium 40 MG Oral Tablet Delayed Release (Protonix) Take 1 Tablet by mouth in the morning. Takes at night . Vivitrol 380 MG Intramuscular Suspension Reconstituted (naltrexone depot) Inject into a large muscle once. Pseudoephedrine HCl ER 120 MG Oral Tablet Extended Release 12 Hour Take 1 Tablet by mouth in the morning and 1 Tablet before bedtime. B Complex Vitamins Oral Capsule Take 1 Capsule by mouth in the morning. lamoTRIgine 100 MG Oral Tablet (LaMICtal) Take 1.75 Tablets by mouth in the morning. Ibuprofen 600 MG Oral Tablet (Motrin) Take 1 Tablet by mouth in the morning and 1 Tablet at noon and 1 Tablet before bedtime. With meals.. 30 Tablet 0 Anastrozole 1 MG Oral Tablet (Arimidex) TAKE 1 TABLET BY MOUTH EVERY DAY IN THE MORNING 30 Tablet 11 Atorvastatin Calcium 40 MG Oral Tablet (Lipitor) Take 1 Tablet by mouth in the morning. busPIRone HCl 10 MG Oral Tablet (Buspar) Take 2 Tablets by mouth in the morning and 2 Tablets before bedtime. Vitamin D (Ergocalciferol) 1.25 MG (21561 UT) Oral Capsule (Drisdol) Take 1 Capsule by mouth once aweek. Acetaminophen 325 MG Oral Tablet (Tylenol) Take 2 Tablets by mouth every 6 hours as needed for Pain, Mild. (Patient not taking: Reported on 05/11/2024) 60 Tablet 0 No current facility-administered medications for this visit. Past Medical History: Diagnosis Date Asthma, allergic BRCA1 gene mutation negative BRCA2 gene mutation negative Breast cancer ([facility]) 11/30/2019 Left Breast DCIS Breast cancer ([facility]) 01/2020 Right Breast DCIS Depressive disorder, not elsewhere classified Insomnia, unspecified Migraine with aura Rosacea Family History Problem Relation Name Age of Onset Breast Cancer Mother metatastic breast cancer Alcohol and Other Disorders Associated Mother Diabetes Father Heart Disorder Father RI's x 2 in his late 40's, s/p [...] Ovarian cancer No significant family history no SPLITTER OPERATOR cancer Social History Socioeconomic History Marital status: Occupational History 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: [employer] - [employer] Tobacco Use Smoking status: Never Smokeless tobacco: Never Vaping Use Vaping status: Never Used Substance and Sexual Activity Alcohol use: No Alcohol/week: 8.3 standard drinks of alcohol Types: 10 5 oz of wine per week Comment: none jed, rehab 02/2015, current rehab Drug use: No Sexual activity: Not Currently Other Topics Concern Special Diet Yes Comment: healthy eating habits, calcium intake Exercise Yes Comment: walking Seat Belt Yes Self-Exams Yes Comment: breast 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 A+Ox3. HEENT: Normocephalic. Atraumatic. PERRL. EOMI. Conjunctiva and sclera clear. NECK: No carotid bruits. No JVD. Carotid upstrokes are brisk. Heart: RRR. S1 and S2 noted. No murmur. No rubs or gallops. PMI non displaced. Lungs: Clear to auscultation. No wheezes.No rhonchi. No rales. Abdomen: Normal bowel sounds. Soft. Nontender. No masses or organomegaly. No abdominal bruits. Extremities: No edema. No clubbing or cyanosis. Pulses: radial=2/4, posterior tibial=2/4, dorsalis pedis = 2/4. NEURO: No focal deficits. PSYCH: Appropriate affect and insight. DATA Labs & Imaging Reviewed Below: Echocardiogram 09/2021 [facility] ASSESSMENT/PLAN: 59 year old year old female 1. PSVT (paroxysmal supraventricular tachycardia) (HCC) 2. Syncope, unspecified syncope type -EKG today demonstrates sinus bradycardia rate 50 beats per minute QTC 402 milliseconds no acute STor T-wave changes -discussed patient's prior history with SVT and if her syncopal episode could possibly be linked -given the patient's last echocardiogram was in 2020 after her initial episode would like to see repeat echocardiogram to assess overall structure and function to ensure that there is no possible etiology to explain her event -also recommended protracted cardiac monitoring 14 day Zio to assess for recurrence of SVT. Did mentioned the patient that outside of her solo event and may be difficult to catch this on the monitor - EKG COMPLETE (TRACING AND INTERP) - ECHO, COMPLETE (2D), TRANS-THORACIC; Future - EXTERNAL EKG 8 TO 15 DAYS; Future DISPOSITION: Follow up 3 months or if symptoms worsen/fail to improve. All questions were answered to the patients satisfaction. Patient advised to report to ED with any and all emergencies. The patient agrees to the above plan and will call with additional questions or concerns. T[facility], [address] [address] I spent a total of 35 minutes on the date of service in preparation, delivery, and documentation ofthe care provided to Brigid Perla excluding any time spent in the performance of separately billedservices. This chart was completed in part utilizing [employer] Speech Voice Recognition Software. Grammatical errors, random word insertions, pronoun errors, and incomplete sentences are an occasional consequence of this system due to software limitations, ambient noise, and hardware issues. Any formal questions or concerns about the content, text, or information contained within the body of this dictation should be directly addressed to the provider for clarification. documented in this encounter Procedure Notes * Butch Chou DO - 10/04/2024 8:45 AM ESTAssociated Order(s): EKG COMPLETE (TRACING AND INTERP) REASON FOR STUDY: near syncope. syncope and palpitations;near CONCLUSIONS: Sinus bradycardia Otherwise normal ECG When compared with ECG of 03-Dec-2021 09:44, No significant change was found Ventricular Rate: 58 Atrial Rate: 58 NM Interval: 182 QRS Duration: 88 QT/QTc: 410/402 ms P-R-T Rowena: 65 : 43 : 58 degrees documented in this encounter Nursing Notes * Serena Watson LPN - 10/04/2024 8:35 AM EST Examination Room: 4 Name: Brigid Perla Date of : 1965 Reason for Visit: Follow up Problems/Concerns: Past eps SVT, recent falls Interim Hosp(s): Denies since May 2023 Chest Pain/SOB: denies MyChart Discussed: ALREADY ACTIVE Patient was instructed to not get up on the exam table until directed and assisted by their provider; patient is to remain seated in the chair/ wheelchair/ exam table for fall prevention and safety reasons. Patient is aware staff will assist stepping down off exam table with personnel. documented in this encounter Plan of Treatment Upcoming Encounters Date Type Department Care Team (Late st Contact Info) Description 11/07/2024 2:30 PM EST Office Visit Hematology/Oncology [facility] [address] [facility] [place] [id number] Neo Vargas MD [address] [facility] [place] [address] 11/22/2024 11:30 AM EST Imaging Radiology, [place] [id number] [facility] [place] [address] 01/20/2025 1:30 PM EST Office Visit Dermatology [facility] [address] [facility] [place] [address] Johnny Read MD [address] [facility] [place] [address] Scheduled Orders Name Type Priority Associated Diagnoses Orde r Schedule ECHO, COMPLETE (2D), TRANS-THORACIC Echocardiology Routine PSVT (paroxysmal supraventricular tachycardia) (HCC) Syncope, unspecified syncope type Expected: 10/05/2024 (Approximate), Expires: 11/03/2026 EXTERNAL EKG 8 TO 15 DAYS Holter Routine PSVT (paroxysmal supraventricular tachycardia) (HCC) Syncope, unspecified syncope type Expected: 10/04/2024 (Approximate), Expires: 10/04/2025 Scheduled Procedures Name Priority Associated Diagnoses Date/Ti [...] 02/06/2022, 110 04/2019, 09/28/2019, Additional history exists Mammogram 04/19/2025 04/19/2024, 2 03/2023, 11/04/2021, Additional history exists Colonoscopy 05/01/2026 05/01/2016, 06/0 07/2016, 11/26/2005 Colorectal Cancer Screening 05/01/2026 Diabetes [...] Not on filedocumented as of this encounter Procedures Procedure Name Priority Date/Time Associated Diagnosis Comments NM ECG ROUTINE ECG W/LEAST 12 LDS W/I&R Routine 10/04/2024 8:45 AM EST PSVT (paroxysmal supraventricular tachycardia) (HCC) documented in this encounter Results * EKG COMPLETE (TRACING AND INTERP) (10/04/2024 8:45 AM EST) 10/04/2024 8:45 AM EST Narrative Procedure Note Butch Chou DO - 10/04/2024 8:45 AM EST REASON FOR STUDY: near syncope. syncope and palpitations;near CONCLUSIONS: Sinus bradycardia Otherwise normal ECG When compared with ECG of 03-Dec-2021 09:44, No significant change was found Ventricular Rate: 58 Atrial Rate: 58 NM Interval: 182 QRS Duration: 88 QT/QTc: 410/402 ms P-R-T [place]ena: 65 : 43 : 58 degrees us Tara JEFF EKG Final R esult [facility] CARDIOLOG[facility] documented in this encounter Visit Diagnoses Diagnosis PSVT (paroxysmal supraventricular tachycardia) (HCC)- Primary Paroxysmal supraventricular tachycardia Syncope, unspecified syncope type documented in this encounter Advance Directives * Full Code (Latest Code Status on File) Date Activated Date Inactivated Comments 05/07/2016 7:51 AM 05/07/2016 2:51 PM . Care Teams Disciplinary Hearing Officer Relationship Specialty Start Date End Date Kanika Walton DO [address] [place] [address] PCP - General Family Medicine 12/31/23 documented as of this encounter"
[2024-10-08] MEDS ORDERED: ATROPINE SULFATE 0.1 MG/ML 10ML SYR IV PRN (07:18)
[2024-10-08] MEDS ORDERED: MoRPHine SULFATE 10 MG/ML CARP/VIAL IV PRN (07:18)
[2024-10-08] MEDS ORDERED: ePHEDrine sulfate 50 MG/ML AMP IV PRN (07:18)
[2024-10-08] MEDS ORDERED: MEPERIDINE HCL 25 MG/ML CARP/VIAL IV PRN (07:18)
[2024-10-08] MEDS ORDERED: fentaNYL citrate PF 100 MCG/2 ML VIAL IV PRN (07:18)
[2024-10-08] MEDS ORDERED: METOCLOPRAMIDE HCL INJ 5 MG/ML 2 ML VIAL IV PRN (07:18)
[2024-10-08] MEDS ORDERED: ALBUTEROL 0.083% NEBU SOLN 3 ML VIAL INH PRN (07:18)
[2024-10-08] MEDS ORDERED: ONDANSETRON INJ 2 MG/ML 2 ML VIAL IV PRN (07:18)
--- NOTE | 2024-10-08 07:19 | Urology Consultation ---
Date of Consultation October 08, 2024 Assessment & Plan (1) Ureterolithiasis: (2) UTI (urinary tract infection): Plan 59-year-old female who presented to the emergency department 10/07/2024 with right flank pain. She was afebrile with stable vitals. CT scan showed a 4 mm right UVJ stone. Labs showed a leukocytosis of 13.4, creatinine 0.93 and a urinalysis that was concerning for infection with 2+ bacteria. She was given antibiotics and admitted. Given obstructing right ureteral calculus and concern for infection, recommended cystoscopy, right retrograde pyelogram right ureteral stent placement Risk and benefits discussed and consent obtained Patient marked Patient already received ceftriaxone History of Present Illness Attending Physician: Joselito Sampson MD, PhD History of Present Illness 59-year-old female who presented to the emergency department 10/07/2024 with right flank pain. She was afebrile with stable vitals. CT scan showed a 4 mm right UVJ stone. Labs showed a leukocytosis of 13.4, creatinine 0.93 and a urinalysis that was concerning for infection with 2+ bacteria. She was given antibiotics and admitted. Allergies Allergy/AdvReac Type Severity Reaction Status Date / Time levothyroxine Allergy Severe facial Verified 10/07/24 18:29 swelling minocycline [From Minocin] Allergy Mild Rash Verified 10/07/24 18:29 Sulfa (Sulfonamide Allergy Unknown PT DOESN'T Verified 10/07/24 18:29 Antibiotics) REMEMBER REACTION Home Medications Medication Instructions Recorded Confirmed Type fluticasone propionate 50 1 spray intranasal BID 02/18/22 10/07/24 History mcg/actuation nasal spray,suspension azelastine 137 mcg (0.1 %) nasal 1 spray intranasal BID 05/15/22 10/07/24 History spray anastrozole 1 mg tablet 1 mg PO QAM 07/22/22 10/07/24 History albuterol sulfate 90 mcg/actuation 1 - 2 puff inhalation Q6H PRN SOB 05/12/23 10/07/24 History aerosol inhaler or wheezing disulfiram 250 mg tablet 250 mg PO HS 07/31/23 10/07/24 History naltrexone microspheres 380 mg 380 mg IM MONTHLY 07/31/23 10/07/24 History intramuscular suspension,extended release (Vivitrol) atorvastatin 40 mg tablet 40 mg PO DAILY 10/07/24 10/07/24 History buspirone 10 mg tablet 10 mg PO BID 10/07/24 10/07/24 History ergocalciferol (vitamin D2) 1,250 50,000 unit PO WK 10/07/24 10/07/24 History mcg (50,000 unit) capsule lamotrigine 100 mg tablet,extended See Rx Instructions .Route .COMPLEX 10/07/24 10/07/24 History release 24 hr lamotrigine 25 mg tablet,extended See Rx Instructions .Route .COMPLEX 10/07/24 10/07/24 History release 24 hr lamotrigine 50 mg tablet,extended See Rx Instructions .Route .COMPLEX 10/07/24 10/07/24 History release 24 hr pantoprazole 40 mg tablet,delayed 40 mg PO DAILY 10/07/24 10/07/24 History release trazodone 100 mg tablet 200 mg PO HS 10/07/24 10/07/24 History Patient History Medical History (Updated 10/08/24 @ 07:02 by Rita Norris DO) Bipolar disorder Anxiety GERD (gastroesophageal reflux disease) Esophagitis determined by endoscopy Hypothyroidism monitoring levels d/t allergy to levothyroxine Ventricular tachycardia from alcohol withdrawl Noncompliance with medication regimen PAF (paroxysmal atrial fibrillation) pt denies Alcohol withdrawal Schatzki's ring Dysphagia History of anesthesia reaction "04/2022-food bolus, removed under general anesthesia in the OR. Pt was extubated and didn't start breathing right away, so they reintubated her and took her to ICU; I told the doctors that I was definitely not drinking the day of my procedure either." Family history of colon cancer Alcoholism hx-quit drinking most recently 05/2023 - treated in [facility] for 10 days in patient and had her last episode of SVT in May 2023. Post traumatic stress disorder Elevated glucose level "watches her diet to keep my level stable" Elevated transaminase level hx Abnormal TSH "on the borderline'-monitoring it and no meds Palpitations "related to drinking, I had SVT's and if I don't drink, I don't have them; have been to the ER to have them checked" f/u Dr. 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 Huynh) last episode 05/2023. treated with adenosine IV in 05/2023. Surgical History History of dilatation and curettage (~01/2023) for endometrial hyperplasia r/t tamoxifen History of dilation and curettage 2003 - s/p miscarriage History of mandibular surgery 1985 History of lumpectomy of right breast x2; radiation tx a07--1915 History of lumpectomy of left breast x1; x20 radiation tx., no chemo History of breast biopsy 11/30/2019 - Left Breast 02/08/2020 - Right Breast History of surgery 05/07/2016 - Anal Tag Removal H/O colonoscopy 05/01/2016 - perianal skin tag, normal colon H/O esophagogastroduodenoscopy 07/04/2009 - EUS exam- No choledocholithiasis, No masses appreciated in the entire pancreas. EGD exam- Normal examined duodenum. Bilious gastric fluid. Mild gastritis ? bilious etiology. Bx neg for H. pylori. Prominent fold just distal to GEJ. Bx- Squamocolumnar mucosa with mild carditis and hyperplastic changes. Negative for intestinal metaplasia and dysplasia. Medium sized hiatus hernia." On 03/10/17 15:26 Rita España wrote "07/04/2009- EUS exam- No choledocholithiasis, No masses appreciated in the entire pancreas. EGD exam- Normal examined duodenum. Bilious gastric fluid. Mild gastritis ? bilious etiology. This was biopsied to r/o H Pylori. Prominent fold just distal to GEJ. This was biopsied. Medium sized hiatus hernia." S/P laparoscopic cholecystectomy 02/23/2004 Family History Mother Breast cancer, Onset Age: 76 Currently battling metastatic breast cancer Grandmother (Paternal) , Passed age 93 of stomach cancer No problems noted. Grandfather (Maternal) , Passed age 72 of colon cancer No problems noted. Father , Passed age 67 of complications from menigioma No problems noted. Aunt Breast cancer, Onset Age: 34 Alive and well Aunt Breast cancer, Onset Age: 62 alive and well Aunt Breast cancer, Onset Age: 62 Alive and well Brother Stroke Dementia Sister No problems noted. Son No problems noted. 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 Feels Safe at Home: Yes Safety Concerns: Feels Safe At This Time Childhood Exposure to Second-Hand Smoke: Yes (Mom ) Diet: regular caffeine: Yes (daily ) during the past year weight has: remained stable Dental Care, Regularly: Yes Gender Identity: Female Assistive Devices: Glasses Physical Exam Physical Exam: General: Alert and oriented, no acute distress HEENT: Normocephalic, mucous membranes moist Pulmonary: Nonlabored respirations Abdomen: Nondistended Extremities: Moves all 4 spontaneously Neuro: No gross deficits Skin: Warm, dry, no rashes noted Results & Data Vital Signs (Past 12 Hours) Vital Signs Temp Pulse Pulse Resp BP Pulse Ox O2 Del Method 10/08/24 03:46 36.7 C 67 18 98/60 L 97 Room Air 10/07/24 22:20 36.7 C 64 16 114/73 97 Room Air 10/07/24 21:47 59 L 10/07/24 21:36 37 C 76 16 148/52 H 98 Room Air 10/07/24 21:30 Room Air 10/07/24 20:33 36.7 C 57 L 20 133/81 98 Room Air 10/07/24 20:22 69 22 118/67 100 Room Air 10/07/24 20:00 66 15 134/73 97 Room Air PG Care Time/CCT Total # of Minutes Spent Total Time Spent with Patient: Total time spent is greater than 50% in coordination of care (as documented) at patient's floor/unit and/or counseling patient: Coding Level of Care Code 24833 IN/OBS CONSULT LVL 3,45M Diagnoses Ureterolithiasis N20.1 UTI (urinary tract infection) N39.0
--- NOTE | 2024-10-08 07:53 | Operative Report ---
PG Post Operative Report Pre & Post Diagnosis Right ureteral calculus, UTI Operation Date: 10/08/24 07:30 <No data on this case meets the specified criteria> Right ureteral calculus, UTI I identified the patient and participated in the time-out.: Yes Procedure Operation Date: 10/08/24 07:30 Actual Procedures p Cystoscopy, Right Retrograde Pyelogram with radiographic interpretation, Right Stent Insertion(Right) - Zion Kenney MD Surgeon Zion Kenney MD Turner Machine Operator None Estimated Blood Loss 0 Findings Consistent with Post-Op Diagnosis Specimens None Drains 6 Moz[place]ican by 24 cm right ureteral stent Anesthesia Type General Complications none Indications 59-year-old female with distal right ureteral calculus and urinalysis concerning for infection Description of Procedure After informed consent was obtained, the patient was transported operative suite. MAC anesthesia was induced. The patient was placed in dorsolithotomy position prepped and draped in a sterile fashion. They received preoperative ceftriaxone for antibiotic prophylaxis. An appropriate surgical timeout was performed. A 22 [place] rigid scope was inserted per urethra into the bladder. Black cystoscopy revealed no stones or lesions. I turned my attention the right ureteral orifice and intubated this with a 5 [place] open-ended catheter. A right retrograde pyelogram was shot which showed moderate to significant hydronephrosis. A sensor wire was advanced into the kidney and confirmed fluoroscopically. A 6 [place]ican by 24 cm right ureteral stent was deployed with a good proximal coil in the renal pelvis and a good distal coil noted in the bladder, confirmed fluoroscopically and under direct visualization, respectively. The bladder was emptied and the scope was removed. This concluded the end of the case. All counts were correct at the end of the case. I was present, scrubbed, and actively participated for the entirety of the procedure. I attest to the content of the Intraoperative Record and any orders documented therein. Any exceptions are noted below.
[2024-10-08] MEDS: DIATRIZOATE MEGLUMINE 30% 100ML VIAL INSTIL ONE (07:54)
--- NOTE | 2024-10-08 08:17 | Anesthesiology Progress Note ---
Date of Service October 08, 2024 Anesthesia Post Procedure Vital Signs Vital Signs: Temp Pulse Pulse Resp BP BP Pulse Ox 10/08/24 08:10 44 L 16 102/73 100 10/08/24 08:02 36.1 C L 56 L 14 100/68 98 10/08/24 03:46 36.7 C 67 18 98/60 L 97 10/07/24 22:20 36.7 C 64 16 114/73 97 10/07/24 21:47 59 L 10/07/24 21:36 37 C 76 16 148/52 H 98 10/07/24 21:30 10/07/24 20:33 36.7 C 57 L 20 133/81 98 10/07/24 20:22 69 22 118/67 100 10/07/24 20:00 66 15 134/73 97 10/07/24 18:26 54 L 16 100 10/07/24 18:16 49 L 25 H 141/83 H 100 10/07/24 17:49 36.6 C 63 15 151/93 H 100 10/07/24 17:12 69 10/07/24 17:05 62 25 H 147/86 H 100 10/07/24 16:22 54 L 15 100 10/07/24 16:22 37.4 C 54 L 14 126/74 100 10/07/24 14:02 36.9 C 99 H 20 145/90 H 97 O2 Del Method O2 Flow Rate 10/08/24 08:10 Nasal Cannula 4 10/08/24 08:02 Nasal Cannula 4 10/08/24 03:46 Room Air 10/07/24 22:20 Room Air 10/07/24 21:47 10/07/24 21:36 Room Air 10/07/24 21:30 Room Air 10/07/24 20:33 Room Air 10/07/24 20:22 Room Air 10/07/24 20:00 Room Air 10/07/24 18:26 Room Air 10/07/24 18:16 Room Air 10/07/24 17:49 Room Air 10/07/24 17:12 10/07/24 17:05 Room Air 10/07/24 16:22 Room Air 10/07/24 16:22 Room Air 10/07/24 14:02 Room Air Pain Intensity Right Abdomen: Pain Intensity: 5 Transfer of Care Handoff Completed per policy Notes Mental Status: alert / awake / arousable Patient Amnestic to Procedure: Yes Nausea / Vomiting: adequately controlled Pain: adequately controlled Airway Patency, RR, SpO2: stable & adequate BP & HR: stable & adequate Hydration State: stable & adequate Anesthetic Complications: no major complications apparent and Pt Satisfied with anesthetic care
[2024-10-08 08:21] VITALS: TEMP 98.1
--- NOTE | 2024-10-08 08:36 | Fluoroscopy Report ---
FL retrograde includes kub CLINICAL HISTORY: RT RETROGRADEright-sided retrograde cystourethrogram COMPARISON STUDY: CT 10/08/2024 FLUOROSCOPY TIME: 8.1 seconds FLUOROSCOPY IMAGES: 1 EXPOSURE DOSE: 1.56 mGy FINDINGS: Right ureteral stent appears to be in satisfactory position proximally. There is persistent hydroureteronephrosis. Cholecystectomy clips. IMPRESSION: Fluoroscopic assistance as above. ACT 112: Negative or not required by law. Electronically signed by: Allen Moseley M.D. 10/08/2024 8:34 AM
[2024-10-08] MEDS: lamoTRIgine 100 MG TAB PO SCH (08:39)
[2024-10-08] MEDS: ATORVASTATIN 40 MG TAB PO SCH (08:40)
[2024-10-08] MEDS: PANTOprazole 40 MG TAB PO SCH (08:41)
[2024-10-08] MEDS ORDERED: PNEUMOCOCCAL VACCINE (PCV20) 20-VAL CONJ-DIP CRM/PF 0.5 ML SYR IM ONE (09:00)
[2024-10-08 10:58] VITALS: BP 94/58; PULSE 76; RESP 16; O2SAT 98
[2024-10-08] MEDS: ANASTROZOLE 1 MG TAB PO SCH (11:27)
[2024-10-08 11:52] LABS: Basophils # (auto) 0.03 K/uL (0.00-0.20); Basophils % (auto) 0.4 %; Eosinophils # (auto) 0.06 K/uL (0.00-0.50); Eosinophils % (auto) 0.8 %; Hemoglobin 12.1 g/dl (12.0-16.0); Immature Granulocytes # (auto) 0.02 K/uL (0.01-0.20); Immature Granulocytes % (auto) 0.3 %; Lymphocytes # (auto) 1.69 K/uL (1.20-3.40); Lymphocytes % (auto) 22.1 %; Mean Corpuscular Hemoglobin 31.4 pg (25.0-34.0); Mean Corpuscular Hgb Conc 33.6 g/dL (32.0-36.0); Mean Corpuscular Volume 93.5 fL (80.0-100.0); Mean Platelet Volume 9.7 fL (9.4-12.4); Monocytes % (auto) 5.2 %; Neutrophils # (auto) 5.44 K/uL (1.40-6.50); Neutrophils % (auto) 71.2 %; Platelet Count 272 K/uL (130-400); RDW Coefficient of Variation 12.8 % (11.5-14.5); RDW Standard Deviation 43.8 fL (36.4-46.3); Red Blood Count 3.85 M/uL (4.20-5.40); White Blood Count 7.64 K/ul (4.8-10.8)
[2024-10-08 12:00] LABS: BUN Creatinine Ratio 14.5 (10-20); Calcium 8.4 mg/dl (8.6-10.3); Potassium 3.5 mmol/L (3.5-5.1)
--- NOTE | 2024-10-08 12:26 | Discharge Summary ---
Discharge Summary Date of Service October 08, 2024 Principal Dx & Hospital Course #1 = Principal Diagnosis (1) Hydroureteronephrosis: RESOLVING well on discharge date 10/08/2024. Patient initially presented to [facility] ER on admission date 10/07/2024 with complaints of worsening abdominal pain, dysuria, nausea/vomiting, and 1 episode of hematochezia, but NO antecedent/coincident fever. Patient initially presented to [facility] ER on admission date 10/07/2024 with an elevated WBC 13.47, N83 L11 M6 (10/07/2024, 2:28pm) and a urinalysis (10/07/2024, 4:30pm) with LE 2+, nitrite-, WBC 21-50, RBC > 20, bacteria 2+, epithelial cells 0-2. Urine culture (10/07/2024, 4:30pm) is pending; in the interim, patient received ceftriaxone 2g IV daily x 1 dose (day #1 on 10/07/2024, 6:29pm) while in [facility]. Patient tolerated this parenteral antibiotic well. Patient's past medical history is noted only for group B beta-hemolytic strep (as noted on 01/03/2024, 6:32pm urine culture). Patient subsequently underwent cystoscopy, right retrograde pyelogram, and right ureteral stent x 1 (10/08/2024, 7:52am)(to treat "moderate right hydroureternephrosis secondary to a 4mm obstructing stone at the right UVJ" (as reported on 10/07/2024, 4:19pm CT abd/pelvis with contrast) with [facility] Urologist Dr. Zion Kenney without incident. Patient was subsequently discharged home on 10/08/2024 with an electronic prescription for cefpodoxime 200mg PO q12, #14 tablets, no refills (start date 10/08/2024 pm, stop date 10/15/2024 am) transmitted to her [id number], [id number] [place] [address]) on 10/08/2024, prior to hospital discharge back to patient's home on 10/08/2024. Patient was advised to follow up with her PCP Dr. Kanika Walton within 3 days of hospital discharge to discuss official/final urine culture (10/07/2024, 4:30pm) results. Patient was also advised to follow up with her Urologist Dr. Zion Kenney within 7 days of hospital discharge to discuss duration of right ureteral stent in situ . (2) UTI (urinary tract infection): See discussion for #1 hydroureternephrosis above. (3) Bipolar disorder: Asymptomatic on home-scheduled lamotrigine 175mg PO qam while in [facility]. Patient will continue this home-scheduled medication on hospital discharge back to her home on 10/08/2024. (4) Alcohol dependence in remission: Asymptomatic with abstinence for the past 16 months. Patient did not receive her home-scheduled disulfiram 250mg PO qhs while in [facility]. Patient may resume this home-scheduled medication on hospital discharge back to her home on 10/08/2024. (5) Anxiety: Asymptomatic on home-scheduled buspirone 10mg PO bid while in [facility]. Patient will continue this home-scheduled medication on hospital discharge back to her home on 10/08/2024. (6) Ureterolithiasis: See discussion for #1 hydroureternephrosis above. Plan Hyperlipidemia: Asymptomatic on home-scheduled atorvastatin 40 mg PO daily (10/08/2024, 8:40am) while in [facility], and after having received ceftriaxone 2g IV daily x 1 dose (day #1 on 10/07/2024, 6:29pm). Now that patient is being discharged back to her home today, 10/08/2024, patient has actually been advised to hold OFF her home-scheduled atorvastatin 40 mg PO daily until 10/17/2024. The reason for holding off her home-scheduled atorvastatin 40 mg PO daily is because patient will start taking cefpodoxime 200 mg PO q12 on 10/08/2024 pm, and the combination of this oral antibiotic and oral atorvastatin may lead to dyspepsia, N/V/D. Patient will be taking cefpodoxime 200 mg PO q12 from 10/08/2024 pm through 10/15/2024 am, and hence, should NOT take her home- scheduled atorvastatin 40 mg PO daily during this time period. To be safe, patient was advised to resume her home-scheduled atorvastatin 40 mg PO daily on 10/17/2024. GERD: Asymptomatic on home-scheduled pantoprazole 40 mg PO daily while in [facility]. Now that patient is being discharged back to her home today, 10/08/2024, patient has actually been advised to hold OFF her home-scheduled pantoprazole 40 mg PO daily until 10/17/2024. The reason for holding off her home-scheduled pantoprazole 40 mg PO daily is because cefpodoxime requires an acidic pH to be absorbed. Pantoprazole reduces acid production in the stomach, thereby RAISING a normal gastric pH of 2.0 to over 6.0 after just one dose of protonix 40 mg PO. As pH is based on a logarithmic scale of base 10, this increase in gastric pH is 10,000 fold! Hence, if patient were to continue taking her home-scheduled pantoprazole 40 mg PO daily as she starts taking cefpodoxime 200 mg PO q12 from 10/08/2024 pm through 10/15/2024 am, cefpodoxime would most likely not be absorbed very well, if at all, and hence, cefpodoxime would not be in sufficient concentration to treat her acute cystitis/acute UTI. Hence, as patient will be taking cefpodoxime 200 mg PO q12 from 10/08/2024 pm through 10/15/2024 am, patient was advised to NOT take her home-scheduled pantoprazole 40 mg PO daily during this time period. To be safe, patient was advised to resume her home-scheduled pantoprazole 40 mg PO daily on 10/17/2024. Insomnia disorder: Asymptomatic on home-scheduled trazodone 200mg at bedtime while in [facility]. Patient will continue this home-scheduled medication on hospital discharge back to her home on 10/08/2024. BRCA (2019): Asymptomatic on home-scheduled anastrozole 1mg PO qam while in [facility]. Patient will continue this home-scheduled medication on hospital discharge back to her home on 10/09/2024 as patient actually received this medication last on 10/08/2024, 9:08am. DVT prophylaxis: Patient did not receive pharmacologic DVT prophylaxis with either heparin 5000 units SQ q12 or lovenox 40mg SQ daily as patient ambulates independently. Of note, patient had no complaints of calf pain, leg swelling, or pleurisy to suggest either DVT or PE while in [facility]. Pain Management: Patient reports 0/10 pain on hospital discharge home on 10/08/2024. While patient did receive morphine 6mg IV x 1 dose (10/07/2024, 6:20pm) in [facility] ER, patient will NOT continue with this medication or with any other narcotic, for that matter, given the patient's past medical history of opioid dependence, and which is not being maintained with Vivitrol (naltrexone extended release injectable solution) 380mg IM monthly at home, and which the patient did not receive while in [facility] as Vivitrol (naltrexone extended release injectable solution) is not available on [facility] formulary. Subsequently, patient was advised to resume her home-scheduled Vivitrol (naltrexone extended release injectable solution) 380mg IM monthly on hospital discharge home. Code: Full code @ home. ACLS was never performed. There were no adverse events associated with this hospitalization. Condition of patient remains fair. Patient demonstrated unexpectedly rapid clinical improvement in her admitting diagnosis of acute obstructive uropathy due to acute right-sided hydroureternephrosis due to a 4mm obstructing stone at the right UVJ" (as reported on 10/07/2024, 4:19pm CT abd/pelvis with contrast), largely due to timely intervention including cystoscopy, right retrograde pyelogram, and right ureteral stent x 1 (10/08/2024, 7:52pm) with [facility] Urologist Dr. Zion Kenney without incident. Hence, patient was discharged back to her home today, 10/08/2024, instead of remaining in [facility] for the originally anticipated 2 midnight hospital stay. Patient will follow up with her PCP Dr. Kanika Walton within 3 days of hospital discharge to discuss official/final urine culture (10/07/2024, 4:30pm) results. Patient was also advised to follow up with her Urologist Dr. Zion Kenney within 7 days of hospital discharge to discuss duration of right ureteral stent in situ. Discharge time, 35 minutes. Of this time period, 17 minutes were spent in coordinating patient's discharge. Admission HPI Per Admitting Provider 59 years old female with a past medical history of FULL CODE @ home, overweight with BMI 27.1 (height 167.6 cm, weight 76.2 kg), anxiety disorder, bipolar disorder, former ETOH dependence (abstinent now for the past 16 months), and former opioid dependence (now maintained with Vivitrol (naltrexone extended release injectable solution) 380mg IM monthly at home, hypothyroidism, dyslipi demia, GERD, and BRCA on anastrozole 1mg PO qam, who presented to [facility] ER on 10/07/2024 with complaints of abdominal pain with associated nausea, vomiting, and bright red blood per rectum x 1. ER course was noted for: WBC 13.47, neutrophil predominant (11.11); CMP glucose 112, globulin 2.2, albumin/globulin ratio 2.2, otherwise grossly WNL; lipase 31; UA cloudy, trace protein, 2+ ketones, 3+ blood, 2+ LE, presence of WBC, RBC, hyaline cast, 2+ bacteria CTAP obstructing 4 mm stone at right UVJ resulting in moderate upstream hydroureteronephrosis, findings suggesting enteritis as well as constipation, findings may suggest mild cystitis, pending EKG. Provided with 1500 mL NSS, famotidine, Zofran, morphine, Tylenol, Rocephin in ED. Please see Dr. Delgado's attestation for adjustments/additions to treatment plan. Discharge Exam General: comfortable, coherent, cooperative. Wide awake and alert. Not confused, lethargic, or obtunded. Patient speaks in complete, fluent, and articulate sentences without pause, interruption, cough, or wheeze. HEENT: normocephalic, atraumatic. EOMI, PERRL. No nystagmus, gaze paresis, anisocoria, miosis, mydriasis, hyphema, chemosis, scleral icterus, conjunctivitis, or pterygium. No otorrorhea. No rhinorrhea. No pharyngeal discharge or exudate. Neck: suppler, no stridor, bruit, goiter, JVD, or HJR. Lymph: no cervical, supraclavicular, infraclavicular, axillary, epitrochlear, or inguinal adenopathy. Chest: symmetric rise and fall with respiration. Non-tender to palpation. Lungs: clear to auscultation and percussion. No audible expiratory wheeze, egophony, pectoriloquy, increase in tactile fremitus, or flatness/dullness to percussion at the bases. Heart: RRR, S1 and S2 noted. No S3 or S4 summation gallop. No tripartite friction rub. Grade II/ early systolic murmur @ LLSB, not radiating to the carotids, the axilla, or back. Invariant in regards to the respiratory cycle. Abdomen: soft, non-tender, non-distended. No rebound, guarding, Abrams's sign, or organomegaly. Bowel sounds auscultated in all 4 quadrants. Extremities: no clubbing, cyanosis, or edema. 2+ pedal pulses bilaterally. Skin: no decubitus ulcer, exanthem, or enanthem. Neurology: alert and oriented in regards to person, place, and time. DTR+ and symmetric. 5/5 motor strength in all 4 extremities, both proximally and distally. No tremors, tics, or myoclonus. Urology: no mcintosh catheter. No urethral discharge. Right ureteral stent in situ (placed on 10/08/2024, 7:52am)(to treat "moderate right hydroureternephrosis secondary to a 4mm obstructing stone at the right UVJ" (as reported on 10/07/2024, 4:19pm CT abd/pelvis with contrast) with [facility] Urologist Dr. Zion Kenney without incident. Discharge Plan Discharge Items Patient Disposition: Home - Self-Care Reason For Visit: HYDRONEPHROSIS, UTI Discharge Diagnosis: Acute obstructive uropathy leading to acute right-sided hydronephrosis. Activity: Resume your previous activity Non-emergency contact: Primary Care Provider and Urologist Call non-emergency contact if: you have any medication questions Follow-up/Referrals: Kanika Walton, [Primary Care Provider] - Diet: Heart Healthy Addtl Attending Provider Instructions: See your Urologist Dr. Zion Kenney within 7 days of hospital discharge. Addtl Nurse Provider Instructions: Follow up with your PCP Dr. Kanika Walton within 3 days of hospital discharge to discuss official/final urine culture (10/07/2024, 4:30pm) results. Pending Studies at Discharge: Yes Studies:: Final/official results of 10/07/2024, 4:30pm urine culture are still pending as of 10/08/2024, 11:51am. Stand-Alone Forms: [employer], Smoking Cessation Medications and DC Order Prescriptions: New cefpodoxime 200 mg tablet 200 mg PO Q12H Qty: 14 0RF Rx Instructions: must administer with a meal/food; DO NOT take this antibiotic with protonix as protonix reduces acid pH in stomach, and prevents this antibiotic from being absorbed. ketorolac 10 mg tablet 30 mg PO DAILY PRN (Reason: pain) 1 Days Qty: 15 0RF Continued azelastine 137 mcg (0.1 %) aerosol,spray 1 spray intranasal BID Rx Instructions: administer into each nostril albuterol sulfate 90 mcg/actuation HFA aerosol inhaler 1 - 2 puff INHALATION Q6H PRN (Reason: SOB or wheezing) fluticasone propionate 50 mcg/actuation [place],Suspension 1 spray INTRANASAL BID anastrozole 1 mg tablet 1 mg PO QAM Vivitrol 380 mg Suspension,Extended Rel Recon 380 mg IM MONTHLY disulfiram 250 mg tablet 250 mg PO HS trazodone 100 mg tablet 200 mg PO HS buspirone 10 mg tablet 10 mg PO BID ergocalciferol (vitamin D2) 1,250 mcg (50,000 unit) capsule 50,000 unit PO WK lamotrigine 25 mg tablet extended release 24hr See Rx Instructions .ROUTE .COMPLEX Rx Instructions: Take 25mg w/ 50mg w/ 100mg to equal 175mg by mouth every morning lamotrigine 50 mg tablet extended release 24hr See Rx Instructions .ROUTE .COMPLEX Rx Instructions: Take 50mg w/ 25mg w/ 100mg to equal 175mg by mouth every morning lamotrigine 100 mg tablet extended release 24hr See Rx Instructions .ROUTE .COMPLEX Rx Instructions: Take 100mg w/ 25mg w/ 50mg to equal 175mg by mouth every morning Held atorvastatin 40 mg tablet 40 mg PO DAILY Hold Instructions: Resume on 10/17/24. Do not take atorvastatin 40mg PO daily as long as your are taking oral antibiotics, as the combination of atorvastatin and oral antibiotics may cause upset stomach, nausea, vomiting, and/or diarrhea. pantoprazole 40 mg tablet,delayed release (DR/EC) 40 mg PO DAILY Hold Instructions: Resume on 10/17/24. DO NOT take protonix 40mg PO daily as long as you take cefpodoxime 200mg PO q12. The reason is because protonix lowers the pH in your stomach and cefpodoxime needs an acid pH to dissolve before it is absorbed into your bloodstream! If you take protonix and cefpodoxime, then the cefpodoxime will NOT dissolve and will NOT be absorbed into your bloodstream, and will end up in your feces. Discharge Orders: Discharge Order (Routine); Ordered 10/08/24 Ordered By: Joselito Sampson Admission Data Admit Date/Time: 10/07/24 18:35 Attending Provider: Joselito Sampson Admit Provider: Alexis Delgado Primary Care Provider: Kanika Walton Other Providers: Alexis Deglado; Zion Kenney Hospital Stay Data Consultations 10/07/24 18:19 ED Decision to Admit Stat 10/07/24 21:38 Consult Urology Routine Procedures Performed Operation Date: 10/08/24 07:30 Actual Procedures p Cystoscopy, Right Retrograde Pyelogram, Right Ureteral Stent Insertion(Right) - Zion Kenney MD Diagnostic Imagining Performed 10/07/24 16:19 CT abd pelvis IV con only Stat 10/08/24 07:15 FL retrograde includes kub Routine Pending Results Patient Have Any Pending Studies at Discharge: Yes Discharge Instructions Given to Patient (Per Discharging Provider) See your Urologist Dr. Zion Kenney within 7 days of hospital discharge. Total Time Total Time Spent Total Time Spent (In Minutes): Discharge time, 35 minutes. Of this time period, 17 minutes were spent in coordinating patient's discharge. Coding Level of Care Code 98850 INP/OBS DISCH >30 MIN Diagnoses Hydroureteronephrosis N13.30 UTI (urinary tract infection) N39.0 Bipolar disorder F31.9 Alcohol dependence in remission F10.21 Anxiety F41.9 Ureterolithiasis N20.1
[2024-10-08] MEDS ORDERED: cefTRIAXone SODIUM 2,000 MG/50 ML BAG IV SCH (18:00)
[2024-10-08] MEDS ORDERED: lamoTRIgine 25 MG TAB PO SCH (21:00)
--- NOTE | 2024-10-10 06:20 | Electrocardiogram Report ---
Test Reason : Blood Pressure : */* mmHG Vent. Rate : 50 BPM Atrial Rate : 50 BPM P-R Int : 168 ms QRS Dur : 92 ms QT Int : 468 ms P-R-T Axes : 78 63 76 degrees QTcB Int : 426 ms Sinus bradycardia Septal infarct , age undetermined Abnormal ECG When compared with ECG of 03-Jan-2024 14:39, Vent. rate has decreased by 37 bpm Septal infarct is now Present Confirmed by Duran Sauceda ([id number]) on 10/10/2024 6:19:56 AM Referred By: REFERRED SELF Confirmed By: Duran Sauceda
== END 2024-10-08 14:10 | disposition home or self-care (01) | DRG 661 ==
LOC: ED 13:59 → SUATTDRO 18:35 → 4W 18:35